=== PATIENT | male | born 1945 | race Caucasian/White ===

== ENCOUNTER → 2017-10-11 | Outpatient (CLI) | payer MEDICARE ==
--- NOTE | 2017-10-11 08:32 | MR ---
EXAMINATION TYPE: MR lumbar spine wo con DATE OF EXAM: 10/11/2017 COMPARISON: NONE HISTORY: Disc space Narrowing , low back suarez TECHNIQUE: Multiplanar, multisequence images of the lumbar spine were acquired. FINDINGS: Bone marrow signal is within normal limits other than a few T2/T1 hyperintense vertebral vidhi dy hemangiomas. There is mild (grade 1) anterolisthesis of L4 on L5. Multilevel disc desiccation is s een throughout the lumbar spine. Lumbar spine vertebral bodies maintain a normal vertebral body heigh t. Conus medullaris is unremarkable terminating at L1. L1-L2: There is a small broad-based disc bulge without evidence of neural foraminal narrowing or spin al canal stenosis. L2-L3: There is a broad-based disc bulge, right eccentric resulting in mild right neural foraminal na rrowing. Left neural foramen is patent. Mild ligament of flavum buckling and facet arthropathy are no harrison without spinal canal stenosis. L3-L4: There is a broad-based disc bulge and facet arthropathy creating minimal bilateral neural fora jn narrowing. No spinal canal stenosis. L4-L5: There is a large broad-based disc bulge and disc uncovering from grade 1 anterolisthesis of L4 on L5 resulting in mild bilateral neural foraminal narrowing. Mild ligamentum flavum buckling and fa cet arthropathy are also noted. No spinal canal stenosis. L5-S1: There is a large broad-based disc bulge resulting in mild bilateral neural foraminal narrowing in combination with mild facet arthropathy. No spinal canal stenosis. IMPRESSION: 1. No focal disc herniation. 2. [id number] multilevel degenerative disc disease resulting in variable neural foraminal narro wing as described above. 3. Grade 1 anterolisthesis of L4 on L5 with disc uncovering, likely on a degenerative basis. 4. No evidence of vertebral body fracture or compression deformity.
== END | disposition home or self-care (01) ==
LOC: RADMRIMAIN 06:52
PROVIDERS: ATTEND Internal Medicine
DX: M99.73 Connective tissue and disc stenosis of intervertebral foramina of lumbar region (principal); M51.36 Other intervertebral disc degeneration, lumbar region; M43.16 Spondylolisthesis, lumbar region
CPT/HCPCS: 72148

== ENCOUNTER → 2018-04-14 | Outpatient (CLI) | payer MEDICARE ==
--- NOTE | 2018-04-14 12:44 | PN ---
PROGRESS NOTE DATE OF SERVICE: 04/14/2018 A 72-year-old gentleman who has been followed in the Sleep Center for treatment of obstructive sleep apnea-hypopnea syndrome. Patient continued to use his CPAP equipment every night for the whole night. His usual sleep schedule from around 10 p.m. until 5:36 a.m. Sometimes he feels sleepy during the day. [place] Sleepiness Scale is 16. I checked his CPAP unit. Usage is 100% of the time more than 4 hours. Average usage is 8.0 hours. Apnea-hypopnea index reading is only 1.8, which is totally perfect. Mask fitting is 100% according to the machine reading. MEDICATIONS: Crystal, allopurinol, Prilosec, Enalapril. PHYSICAL EXAM: Patient in no distress. BP 144/69, HR 48, RR 16, height 6, 0, weight 222, BMI 30.1, temperature 98.0, oxygen saturation on room air 94%. OROPHARYNX: Low position of soft palate. Neck Supple, no JVD. Thyroid is not palpable. LUNGS Clear to percussion and to auscultation. Good air exchange. No wheezing or rhonchi. HEART S1, S2 regular. No murmurs, gallops, or rubs. ABDOMEN Soft and nontender. Bowel sounds are present. No organomegaly appreciated. EXTREMITIES No clubbing or cyanosis. SLIP MAKER Awake, alert, and oriented X3. Cranial nerves 2 to 7 intact. There is no fasciculation or atrophy. noted. No focal deficits observed. IMPRESSION: 1. Obstructive sleep apnea-hypopnea syndrome on control with CPAP. Patient demonstrated 100% compliance with treatment benefitting from treatment. 2. Patient continued to have leg movements at night, feels sleepy during the day. 3. Hypertension. 4. Acid reflux. 5. Gout. 6. Hyperlipidemia. 7. Status post bilateral knee surgery. 8. History of colon CA, status post surgical treatment. PLAN: 1. Continue treatment with CPAP every night for the whole night. 2. Watching weight. 3. Sleep hygiene with time in bed for at least 8 hours. 4. Previously patient was tried on dopaminergic agonists at night and feel not well in the morning after awakenings after this medication. I discussed this option again with the patient We will decide not to do it at the present time. 5. No driving if feeling sleepiness. 6. Prescription for all necessary CPAP supplies including mask, tube, filters. 7. Thank you very much for allowing me to participate in management of your patient. 8. 9. MMODL / IJN: [id number] /
== END | disposition home or self-care (01) ==
LOC: SLEEP 10:41
PROVIDERS: ATTEND Internal Medicine
DX: G47.33 Obstructive sleep apnea (adult) (pediatric) (principal); I10 Essential (primary) hypertension; K21.9 Gastro-esophageal reflux disease without esophagitis; M10.9 Gout, unspecified; E78.5 Hyperlipidemia, unspecified; Z98.890 Other specified postprocedural states; Z99.89 Dependence on other enabling machines and devices; Z79.899 Other long term (current) drug therapy; Z85.038 Personal history of other malignant neoplasm of large intestine

== ENCOUNTER → 2019-04-13 | Outpatient (CLI) | payer MEDICARE ==
--- NOTE | 2019-04-13 11:40 | SFUN ---
SLEEP CENTER FOLLOW UP NOTE DATE OF SERVICE: 04/13/2019 This 73-year-old gentleman has been followed in sleep center for treatment of obstructive sleep apnea-hypopnea syndrome. Patient continued to use his CPAP equipment successfully every night. According to his , recently he has had episodes of snoring while using his CPAP. The patient has slightly increased weight comparing with the previous visit at about 2 pounds. I checked his CPAP unit. Usage is every night more than 4 hours with average usage 8.7 hours per night. Mask fit 100%. Apnea-hypopnea index only 1.1. Periodic breathing reading is 2%. I checked pressure. Pressure is 9 cm of water. [place] Sleepiness Scale today is increased to 14. MEDICATIONS: Allopurinol, Prilosec, enalapril, . PHYSICAL EXAMINATION: During physical exam, patient in no distress. VITAL SIGNS: BP 144/77, HR 62, RR 16, height 6 feet 0 inches, weight 225 pounds, body mass index 30.5, temperature 98.3, oxygen saturation at room air 95%. HEENT: PERRLA, EOMI. The oropharynx low position of soft palate. Mallampati 4. NECK: Supple, no JVD. Thyroid is not palpable. LUNGS: Clear to percussion and to auscultation. Good air exchange. No wheezing or rhonchi. HEART: S1, S2 regular. No murmurs, gallops, or rubs. ABDOMEN: Slightly obese. EXTREMITIES: No clubbing or cyanosis. ON LINE CSR: Awake, alert, and oriented X3. Cranial nerves 2 to 7 intact. There is no fasciculation or atrophy. noted. No focal deficits observed. IMPRESSION: 1. Obstructive sleep apnea-hypopnea syndrome. The patient demonstrated 100% compliance with treatment benefitting with treatment, slight snoring while using CPAP. 2. Patient continued to have leg movements at night. 3. [place] Sleepiness Scale increased. 4. Hypertension. 5. Acid reflux. 6. History of gout. 7. Hyperlipidemia. 8. Status post bilateral knee surgery. 9. History of colon carcinoma, status post surgical treatment. PLAN: 1. I increased the pressure to 10 cm of water. 2. Patient will continue to use CPAP equipment every night for the whole night. 3. Prescription for all necessary CPAP supplies including nasal pillow AirFit P 10 mask. 4. Prescription for Mirapex lowest dose 0.125 mg 1 to 2 tablets p.o. q.h.s. 5. Watching and losing weight. Thank you very much for allowing me to participate in management of your patient. Sincerely, Cristi Oliveira MD, PhD, FAASM Diplomat of [place] [employer] [place] [employer] Public Records Researcher of [facility] [place] MMODL / ARUNN: [id number] /
== END | disposition home or self-care (01) ==
LOC: SLEEP 09:46
PROVIDERS: ATTEND Internal Medicine
DX: G47.33 Obstructive sleep apnea (adult) (pediatric) (principal); R25.9 Unspecified abnormal involuntary movements; I10 Essential (primary) hypertension; K21.9 Gastro-esophageal reflux disease without esophagitis; E78.5 Hyperlipidemia, unspecified; Z87.39 Personal history of other diseases of the musculoskeletal system and connective tissue; Z85.038 Personal history of other malignant neoplasm of large intestine; Z99.89 Dependence on other enabling machines and devices; Z98.890 Other specified postprocedural states; Z79.899 Other long term (current) drug therapy
CPT/HCPCS: 99211

== ENCOUNTER → 2020-04-11 | Outpatient (CLI) | payer MEDICARE ==
--- NOTE | 2020-04-11 11:35 | SFUN ---
SLEEP CENTER FOLLOW UP NOTE DATE OF SERVICE: 04/11/2020 A 74-year-old gentleman has been followed in the Sleep Center for treatment of obstructive sleep apnea-hypopnea syndrome. The patient successfully continues to use his CPAP equipment. He feels a little bit discomfort from one of the nasal pillow inside of the nose, has mild irritation. [place] Sleepiness Scale today is 7. I checked CPAP unit. Usage is 30/30 nights for more than 4 hours with average usage 8.9 hours per night, usage 100%. Apnea-hypopnea index only 2.2. Periodic breathing 3%, pressure is 9 cm of water. MEDICATIONS: Crestor, Difenac, finasteride, enalapril, Prilosec. PHYSICAL EXAM: gentleman without distress. BP 164/54, HR 55, RR 16, height 6, 0, weight 240, BMI 32.5, temperature 98.2, oxygen saturation at room air 94%. OROPHARYNX: Low position of soft palate, Mallampati 4. ABDOMEN: Slightly obese. NECK: Supple, no JVD. Thyroid is not palpable. LUNGS: Clear to percussion and to auscultation. Good air exchange. No wheezing or rhonchi. HEART: S1, S2 regular. No murmurs, gallops, or rubs. EXTREMITIES: No clubbing or cyanosis. ACCOUNTANT TAX: Awake, alert, and oriented X3. Cranial nerves 2 to 7 intact. There is no fasciculation or atrophy. noted. No focal deficits observed. IMPRESSION: 1. Obstructive sleep apnea-hypopnea syndrome. Patient demonstrated 100% compliance with treatment, benefitting from treatment. 2. History of periodic limb movements. 3. Hypertension. 4. Acid reflux. 5. History of gout. 6. Hyperlipidemia. 7. Status post bilateral knee surgery. 8. History of colon CA, status post surgical treatment. 9. Status post cholecystectomy. 10.Status post appendectomy. 11.Status post bilateral cataract surgery. 12.Status post treatment for basal cell CA on the back. PLAN: 1. Patient will continue to use PAP equipment every night for the whole night. 2. Sleep hygiene with regular time in bed for at least 7-1/2 to 8 hours. 3. Precautions related to driving. No driving if feeling sleepiness. 4. I will maintain all necessary prescription for PAP supplies including mask, tube, filters. 5. Watching weight. 6. No driving if feeling sleepiness. 7. Follow-up visit in 6 months or earlier if patient has any problems. Thank you very much for allowing me to participate in the management of your patient. Sincerely, Cristi Oliveira MD, PhD, FAASM Diplomat of [employer] Board of Internal Medicine Mosaic Tiler of [facility] [place] MMODL / VERNON: [id number] /
== END | disposition home or self-care (01) ==
LOC: SLEEP 09:59
PROVIDERS: ATTEND Internal Medicine
DX: G47.33 Obstructive sleep apnea (adult) (pediatric) (principal); I10 Essential (primary) hypertension; K21.9 Gastro-esophageal reflux disease without esophagitis; E78.5 Hyperlipidemia, unspecified; Z87.39 Personal history of other diseases of the musculoskeletal system and connective tissue; Z85.828 Personal history of other malignant neoplasm of skin; Z96.653 Presence of artificial knee joint, bilateral; Z85.038 Personal history of other malignant neoplasm of large intestine; Z90.89 Acquired absence of other organs; Z98.41 Cataract extraction status, right eye; Z98.42 Cataract extraction status, left eye; Z79.899 Other long term (current) drug therapy

== ENCOUNTER → 2021-04-10 | Outpatient (CLI) | payer MEDICARE ==
--- NOTE | 2021-04-10 20:04 | SFUN ---
SLEEP CENTER FOLLOW UP NOTE DATE OF SERVICE: 04/10/2021 75-year-old gentleman has been followed in Sleep Center for treatment of obstructive sleep apnea-hypopnea syndrome. Patient continued to use CPAP equipment every night for the whole night and getting his supplies in time. [place] Sleepiness Scale today is 4, which is totally normal. I checked CPAP unit. This is from [employer]. CPAP pressures 10. 2 cm of water, usage 29/30 nights for more than 4 hours, average 8.8 hours per night. Next feet 100%. Patient using AirFit P10 nasal pillows large size. Apnea-hypopnea index only 0.7, which is absolutely perfect. MEDICATIONS: Finasteride once a day, Diclofenac 75 mg twice a day, lisinopril hydrochlorothiazide 10- 12.5 mg once a day. Crestor 10 mg once a day. Omeprazole 20 mg once a day. PHYSICAL EXAMINATION: GENERAL: Patient in no distress. BP 170/76, HR 58, RR 15, height 6 inches, weight 248, body mass index 33.7, temperature 98.2. HEENT: PERRLA, EOMI. Oropharynx extremely low position of soft palate. Mallampati 4. NECK: Supple, no JVD. Thyroid is not palpable. LUNGS: Clear to percussion and to auscultation. Good air exchange. No wheezing or rhonchi. HEART: S1, S2 regular. No murmurs, gallops, or rubs. ABDOMEN: Obese. Soft and nontender. Bowel sounds are present. No organomegaly appreciated. EXTREMITIES: No clubbing or cyanosis. AUSTRALIAN RULES FOOTBALLER: Awake, alert, and oriented X3. Cranial nerves 2 to 7 intact. There is no fasciculation or atrophy. noted. No focal deficits observed. IMPRESSION: 1. Obstructive sleep apnea-hypopnea syndrome. Patient demonstrated 100% compliance with treatment, benefitting from treatment. The patient's unit is DreamWear station from [employer], which has been recalled and unit I believe more than 5- years-old. 2. History of periodic limb movements. No clinical problems related to movements at the present time. 3. Hypertension. 4. Acid reflux. 5. History of gout. 6. Hyperlipidemia. 7. Status post bilateral knee surgery. 8. History of colon carcinoma, status post surgical treatment. 9. Status post cholecystectomy. 10.Status post appendectomy. 11.Status post bilateral cataract surgery. 12.Status post treatment for basal cell carcinoma of the breast. PLAN: 1. Prescription to replace DreamWear [employer] CPAP unit because again it was very cold and I believe it is more than 5 years old. 2. Patient will continue to use PAP equipment every night for the whole night. 3. Sleep hygiene with regular time in bed for at least 7-1/2 to 8 hours. 4. Precautions related to driving. No driving if feeling sleepiness. 5. I will maintain all necessary prescription for PAP supplies including mask, tube, filters. 6. Watching weight. 7. Follow-up visit in 30-90 days after patient will receive new CPAP unit from [facility]. Thank you very much for allowing me to participate in management of this patient. Sincerely, Cristi Oliveira MD, PhD, FAASM Diplomat of [place] [employer] Specialties Sleep Medicine Board of [place] Board of Internal Medicine Embossing Toolsetter of [facility] [place] MMODL / IJN: [id number] /
== END ==
LOC: SLEEP 10:05
PROVIDERS: ATTEND Internal Medicine
DX: G47.33 Obstructive sleep apnea (adult) (pediatric) (principal); I10 Essential (primary) hypertension; K21.9 Gastro-esophageal reflux disease without esophagitis; E78.5 Hyperlipidemia, unspecified; Z87.39 Personal history of other diseases of the musculoskeletal system and connective tissue; Z85.038 Personal history of other malignant neoplasm of large intestine; Z90.49 Acquired absence of other specified parts of digestive tract; Z90.89 Acquired absence of other organs; Z98.42 Cataract extraction status, left eye; Z98.41 Cataract extraction status, right eye; Z85.3 Personal history of malignant neoplasm of breast; Z98.890 Other specified postprocedural states; Z86.69 Personal history of other diseases of the nervous system and sense organs; Z79.899 Other long term (current) drug therapy

== ENCOUNTER → 2022-03-25 | Outpatient (CLI) | payer MEDICARE ==
--- NOTE | 2022-03-25 15:28 | P.PN ---
Subjective DATE: 03/25/2022 FOLLOW UP VISIT. Patient with obstructive sleep apnea hypopnea syndrome return to sleep center for follow-up visit. Patient is using PAP equipment every night for the whole night, getting PAP supplies in time. The patient does not have significant problems with the mask, PAP unit and humidification. [place] sleepiness scale is 15. I checked PAP unit. Dream station 1. PAP unit pressure 10 cm H2O. Usage is 100 % for more then 4 hours, average 8.7 hours per night. Apnea Hypopnea Index is 0.5, which is normal. Patient still has multiple awakenings from sleep. I reviewed the results of previous sleep study it showed apnea-hypopnea index 54.5 and significant amount of periodic limb movement 68.1 times per hour. MEDICATIONS:1. Crestor 10 mg once a day 2. D diclofenac 75 mg twice a day 3. Enalapril 5 mg once a day 4. Finasteride 5. Lisinopril 6. : Buspar During physical exam: GENERAL: A pleasant patient without any distress. VITAL SIGNS: BP 151/74, HR 65, RR 18 , weight 47.6, temperature 97.2, height 6 foot 1/4 inches, body mass index 33.3, oxygen saturation at room air 96 . HEENT: PERRLA, EOMI.low position of soft palate, Mallapati for . NECK: Supple. No JVD. LUNGS: Clear to percussion and to auscultation. Good air exchange. No wheezing or rhonchi. HEART: S1, S2 regular. ABDOMEN: Soft and nontender. Slightly obese EXTREMITIES: No clubbing or cyanosis. COLORIST DYER: Awake, alert, and oriented x3. No focal deficit. Impressions: 1. Obstructive sleep apnea-hypopnea syndrome. Patient demonstrated great compliance with treatment, benefiting from treatment. 2. Patient still has multiple awakenings from sleep could be related to periodic limb movements. 3. Hypertension. 4. Acid reflux. 5. History of gout. 6. Hyperlipidemia. 7. History of colon CA status post surgical treatment. 8. Status post bilateral knee surgery. 9. Status post cholecystectomy. 10 status post appendectomy. 11. Status post bilateral cataract surgery. 12. Status post treatment of basal cell carcinoma over the breast area. Plan: 1. Continue using PAP equipment every night for the whole night. Patient has extremely severe obstructive sleep apnea hypopnea syndrome with apnea-hypopnea index 54.5. 2. To change air filter at least 1-2 times per month. 3. PAP unit should stay lower then position of the head. 4. Advised patient to remove all remaining water from humidifier canister daily and make it dry after each usage. Refill canister with fresh distilled water before each usage. 5. Sleep hygiene with regular time in bed for at least 8 hours. 6. Precautions related to driving. No driving if feel any sleepiness. 7. I will maintain prescription for PAP supplies including mask, tube, filters. 8. Follow up visit in 3 months or earlier if patient has any problems. 9. Watching weight. 10. Clonazepam with the minimal dose of 0.5 mg at bedtime. 11. Patient CPAP unit should be replaced as soon as possible. Thank you very much for allowing me to participate in the management of your patient. Cristi Oliveira MD, PhD, FAASM. Diplomat of [employer] Board [employer] Sleep Medicine, Sleep Medicine Board by [place] Board of Internal Medicine Administration Physician of [facility] [place]
== END ==
LOC: SLEEP 14:27
PROVIDERS: ATTEND Internal Medicine
DX: G47.33 Obstructive sleep apnea (adult) (pediatric) (principal); I10 Essential (primary) hypertension; K21.9 Gastro-esophageal reflux disease without esophagitis; E78.5 Hyperlipidemia, unspecified; Z87.39 Personal history of other diseases of the musculoskeletal system and connective tissue; Z98.890 Other specified postprocedural states; Z90.49 Acquired absence of other specified parts of digestive tract; Z98.42 Cataract extraction status, left eye; Z98.41 Cataract extraction status, right eye; Z85.038 Personal history of other malignant neoplasm of large intestine; Z85.828 Personal history of other malignant neoplasm of skin; Z99.89 Dependence on other enabling machines and devices; Z79.899 Other long term (current) drug therapy
CPT/HCPCS: 99212

== ENCOUNTER → 2022-07-01 | Outpatient (CLI) | payer MEDICARE ==
--- NOTE | 2022-07-02 13:09 | P.PN ---
Subjective DATE: 07/01/2022 FOLLOW UP VISIT. Patient with obstructive sleep apnea hypopnea syndrome return to sleep center for follow-up visit. Information from previous visit have been reviewed. Patient received new CPAP unit for respiratory neck for replacement of dream station 1 unit, which was on recall. Patient is using PAP equipment every night for the whole night, getting PAP supplies in time. The patient does not have significant problems with the mask. [place] sleepiness scale is 4, which is normal.. I checked information from PAP unit. Patient is using it every night for about 8.3 hours per night. Humidifier is 0 level. Sometimes patient feels dryness in the mouth. I teach patient how to adjust humidity. MEDICATIONS:1. Clonazepam 0.5 mg at bedtime 2., Finasteride 3., Lisinopril/hydrochlorothiazide 20/25 mg 4., Omeprazole 20 mg once a day 5., Amlodipine 10 mg once a day 6., Rosuvastatin 10 mg once a day 7., Diclofenac up to twice a day During physical exam: GENERAL: A pleasant patient without any distress. VITAL SIGNS: BP 150/78, HR, 62, RR, 16, weight 235, temperature 98.0, oxygen saturation at room air, 94 % . HEENT: PERRLA, EOMI.low position of soft palate, Mallapati 4 . NECK: Supple. No JVD. LUNGS: Clear to percussion and to auscultation. Good air exchange. No wheezing or rhonchi. HEART: S1, S2 regular. ABDOMEN: Soft and nontender.[] EXTREMITIES: No clubbing or cyanosis. INTEGRATED MARKETING INTERN: Awake, alert, and oriented x3. No focal deficit. Impressions: 1. Obstructive sleep apnea-hypopnea syndrome. Patient demonstrated great compliance with treatment, benefiting from treatment. 2. Hypertension. 3., Acid reflux. 4., Hyperlipidemia. 5., History of gout. 6., History of colon CA status post surgical treatment. 7., Status post bilateral knee surgery. 8.. Status post cholecystectomy. 9. Status post appendectomy. 10., Status post bilateral cataract surgery. 11.. Status post basal cell CA treatment and in the breast area. . Plan: 1. Continue using PAP equipment every night for the whole night. 2. To change air filter at least 1-2 times per month. 3. PAP unit should stay lower then position of the head. 4. Advised patient to remove all remaining water from humidifier canister daily and make it dry after each usage. Refill canister with fresh distilled water before each usage. 5. Sleep hygiene with regular time in bed for at least 8 hours. 6. Precautions related to driving. No driving if feel any sleepiness. 7. I will maintain prescription for PAP supplies including mask, tube, filters. 8. Follow up visit in 6 months or earlier if patient has any problems. 9. Watching weight. Thank you very much for allowing me to participate in the management of your patient. Cristi Oliveira MD, PhD, FAASM. Diplomat of [place] Board of Sleep Medicine, Sleep Medicine Board by [place] Board of Internal Medicine Electrical Power Engineer of [facility] [place]
== END ==
LOC: SLEEP 14:50
PROVIDERS: ATTEND Internal Medicine
DX: G47.33 Obstructive sleep apnea (adult) (pediatric) (principal); I10 Essential (primary) hypertension; K21.9 Gastro-esophageal reflux disease without esophagitis; E78.5 Hyperlipidemia, unspecified; M10.9 Gout, unspecified; Z90.49 Acquired absence of other specified parts of digestive tract; Z99.89 Dependence on other enabling machines and devices; Z85.038 Personal history of other malignant neoplasm of large intestine; Z96.653 Presence of artificial knee joint, bilateral; Z85.828 Personal history of other malignant neoplasm of skin; Z98.42 Cataract extraction status, left eye; Z98.41 Cataract extraction status, right eye
CPT/HCPCS: 99212

== ENCOUNTER → 2023-07-22 | Outpatient (CLI) | payer MEDICARE ==
--- NOTE | 2023-07-22 12:47 | P.PN ---
Subjective DATE: 07/22/2023 FOLLOW UP VISIT. Patient with obstructive sleep apnea hypopnea syndrome return to sleep center for follow-up visit. Information from previous visit have been reviewed. Patient is using PAP equipment every night for the whole night, getting PAP supplies in time. The patient does not have significant problems with the mask, PAP unit and humidification. [place] sleepiness scale is 7, which is normal. I checked information from PAP unit and discussed it with patient. PAP unit pressure 10 cm H2O. Usage is 100 % for more then 4 hours, average 8.1 hours per night. Mask feet 100%. Apnea hypopnea index 2.7, which is normal. MEDICATIONS:1. clonazepam 0.5 mg at bedtime 2. lisinopril /hydrochlorothiazide 20 -25 mg once a day 3. Omeprazole 20 mg once a day 4. Amlodipine 10 mg once a day 5. Rosuvastatin 10 mg once a day During physical exam: GENERAL: A pleasant patient without any distress. VITAL SIGNS: BP 122/73, HR 72, RR 16 , weight 218, temperature 97.8, oxygen saturation at room air 96 % . HEENT: PERRLA, EOMI.low position of soft palate, Mallapati 4 . NECK: Supple. No JVD. LUNGS: Clear to percussion and to auscultation. Good air exchange. No wheezing or rhonchi. HEART: S1, S2 regular. ABDOMEN: Soft and nontender.[] EXTREMITIES: No clubbing or cyanosis. CLINIC BUSINESS MANAGER: Awake, alert, and oriented x3. No focal deficit. Impressions: 1. Obstructive sleep apnea-hypopnea syndrome. Patient demonstrated great compliance with treatment, benefiting from treatment. 2. hypertension. 3. acid reflux. 4. hyperlipidemia. 5. history of gout. 6. history of colon cancer, status post surgical treatment. 7. Status post bilateral knee surgery. 8. Status post cholecystectomy. 9. Status post appendectomy. 10. Status post bilateral cataract surgery. 11. Status post surgical treatment for basal cell carcinoma in the breast area. Plan: 1. Continue using PAP equipment every night for the whole night. 2. To change air filter at least 1-2 times per month. 3. PAP unit should stay lower then position of the head. 4. Advised patient to remove all remaining water from humidifier canister daily and make it dry after each usage. Refill canister with fresh distilled water before each usage. 5. Sleep hygiene with regular time in bed for at least 8 hours. 6. Precautions related to driving. No driving if feel any sleepiness. 7. I will maintain prescription for PAP supplies including mask, tube, filters. 8. Watching weight. 9. Follow up visit in 6 months or earlier if patient has any problems. Thank you very much for allowing me to participate in the management of your patient. Cristi Oliveira MD, PhD, FAASM. Diplomat of [place] Board of Sleep Medicine, Sleep Medicine Board by [place] [employer] Medicine Pearl Glue Operator of [facility] [place]
== END ==
LOC: 3 N SLEEP 11:29
PROVIDERS: ATTEND Internal Medicine
DX: G47.33 Obstructive sleep apnea (adult) (pediatric) (principal); I10 Essential (primary) hypertension; K21.9 Gastro-esophageal reflux disease without esophagitis; E78.5 Hyperlipidemia, unspecified; M10.9 Gout, unspecified; Z96.653 Presence of artificial knee joint, bilateral; Z85.038 Personal history of other malignant neoplasm of large intestine; Z90.49 Acquired absence of other specified parts of digestive tract; Z85.3 Personal history of malignant neoplasm of breast; Z98.41 Cataract extraction status, right eye; Z98.42 Cataract extraction status, left eye; Z98.890 Other specified postprocedural states; Z99.89 Dependence on other enabling machines and devices; Z85.828 Personal history of other malignant neoplasm of skin; Z79.899 Other long term (current) drug therapy
CPT/HCPCS: 99212

== ENCOUNTER → 2023-09-02 | Outpatient (CLI) | payer MEDICARE ==
--- NOTE | 2023-09-02 13:29 | XR ---
EXAMINATION TYPE: XR shoulder complete RT DATE OF EXAM: 09/02/2023 CLINICAL HISTORY: pain COMPARISON: NONE TECHNIQUE: Frontal and lateral images of the right humerus are obtained. FINDINGS: There is no acute fracture/dislocation evident. Expansile lytic lesion proximal right teto ral diaphysis felt to reflect metastatic disease The joint spaces appear within normal limits. The o verlying soft tissue appears unremarkable. Possible additional lesion right rib #6 pathologic fractur e. IMPRESSION: Lytic lesion proximal right humeral diaphysis which may reflect primary malignancy versus metastatic lesion.Possible additional lesion right rib #6 pathologic fracture.
--- NOTE | 2023-09-02 13:33 | XR ---
EXAMINATION TYPE: XR lumbosacral spine min 4V DATE OF EXAM: 09/02/2023 CLINICAL HISTORY: pain COMPARISON: NONE TECHNIQUE: Frontal, lateral, and oblique images of the lumbar spine are obtained. FINDINGS: There are 5 lumbar type vertebral bodies identified. The lumbar spine shows satisfactory alignment without evidence of acute fracture or dislocation. Vertebral body heights are within normal limits. Severe multilevel degenerative disc space narrowing with vacuum disc and endplate sclerosis. Facet joint arthropathy. The overlying soft tissue appears unremarkable. IMPRESSION: No acute fracture or dislocation is seen in the lumbar spine.ICD 10 NO FRACTURE, INITIAL EVALUATION
== END | disposition home or self-care (01) ==
LOC: RADXRYALE 12:49
PROVIDERS: ATTEND Internal Medicine
DX: M89.9 Disorder of bone, unspecified (principal); M54.51 Vertebrogenic low back pain; M25.511 Pain in right shoulder
CPT/HCPCS: 72110

== ENCOUNTER → 2023-10-29 | Outpatient (CLI) | payer MEDICARE ==
--- NOTE | 2023-10-31 09:41 | PE ---
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 Images are reviewed on the computer in the coronal, a xial, and sagittal planes. Reconstructed rotating images are created on independent workstation and reviewed on the computer. A non-contrast CT is performed in conjunction with the PET scan. Glucose level 108 mg/dL CT DLP: 750 mGycm, Automated exposure control for dose reduction was used. COMPARISON: CT None, PET/CT None, plain film radiograph 09/02/2023. FINDINGS: Mediastinal SUV mean is 1.8. Hepatic parenchyma SUV mean is 2.4. SKULL BASE AND NECK: No suspicious radiotracer activity. CHEST, MEDIASTINUM, AND HILAR REGION: No suspicious radiotracer activity. ABDOMEN AND PELVIS: No suspicious radiotracer activity. MUSCULOSKELETAL STRUCTURES: * Heterogenous uptake around the right humerus max SUV 7.7 along the area of prior lytic lesions in plain film. There is underlying pathologic fracture changes also present. * Uptake within the right rib 6. Max SUV 8.8 with an area more laterally max SUV 5.3. These have sof t tissue component with erosion of the cortex. * Heterogenous uptake throughout the remainder of the osseous structures without focal uptake. OTHER CT: Bilaterally aphakia. Right shoulder arthroplasty changes. Atherosclerosis of the arterial vasculature. The heart is mildly enlarged for size. Mild emphysema changes. The gallbladder surgicall y absent. Right renal cyst. Scattered colonic diverticula. Surgical clips in the posterior pelvis. IMPRESSION: 1. Uptake along the right humerus fixation hardware which is heterogenous appearance with healing ch anges and underlying pathologic fracture. 2. Uptake within the right rib and at least 2 spots with soft tissue compatible with malignancy. 3. No additional sites of abnormal bone marrow uptake or evidence for lymphadenopathy or other mass.
== END | disposition home or self-care (01) ==
LOC: RADPETMAIN 07:38
PROVIDERS: ATTEND Internal Medicine Hematology & Oncology
DX: C41.9 Malignant neoplasm of bone and articular cartilage, unspecified (principal); Z96.7 Presence of other bone and tendon implants
CPT/HCPCS: 78815; A9552

== ENCOUNTER → 2024-03-09 | Outpatient (CLI) | payer MEDICARE ==
[2024-03-09 13:14] VITALS: BP 163/73; PULSE 50; RESP 20; TEMP 97.9
--- NOTE | 2024-03-09 13:33 | P.PROGSL ---
Subjective DATE: 03/09/2024 FOLLOW UP VISIT. Patient with obstructive sleep apnea hypopnea syndrome return to sleep center for follow-up visit. Information from previous visit have been reviewed. Patient is using PAP equipment every night for the whole night, getting PAP supplies in time. Patient is close on clonazepam 0.5 mg at bedtime to prevent anxiety and to improve quality of sleep. The patient does not have significant problems with the mask, PAP unit and humidification. Essie sleepiness scale is 3, which is normal. I checked information from PAP unit. PAP unit pressure 10 cm H2O. Usage is 100% for more then 4 hours, average 9 hours per night. Mask fit 100%. Apnea Hypopnea Index is 4.8, which is normal. MEDICATIONS: Please see below During physical exam: GENERAL: A pleasant patient without any distress. VITAL SIGNS: Please see below. HEENT: PERRLA, EOMI.low position of soft palate, Mallapati 4 . NECK: Supple. No JVD. LUNGS: Clear to percussion and to auscultation. Good air exchange. No wheezing or rhonchi. HEART: S1, S2 regular. ABDOMEN: Soft and nontender.[] EXTREMITIES: No clubbing or cyanosis. DATA CENTER OPERATOR: Awake, alert, and oriented x3. No focal deficit. Impressions: 1. Obstructive sleep apnea-hypopnea syndrome. Patient demonstrated great compliance with treatment, benefiting from treatment. 2. Melanoma, on chemotherapy treatment. 3. Hypertension. 4. History of colon cancer, status post surgical treatment. 5. Acid reflux. 6. History of gout. 7. Hyperlipidemia. 8. Status post bilateral knee surgery. 9. Status post surgical treatment for basal cell carcinoma in the breast area. Plan: 1. Continue using PAP equipment every night for the whole night. 2. To change air filter at least 1-2 times per month. 3. PAP unit should stay lower then position of the head. 4. Advised patient to remove all remaining water from humidifier canister daily and make it dry after each usage. Refill canister with fresh distilled water before each usage. 5. Sleep hygiene with regular time in bed for at least 8 hours. 6. Precautions related to driving. No driving if feel any sleepiness. 7. I will maintain prescription for PAP supplies including mask, tube, filters. 8. Follow up visit in 6 months or earlier if patient has any problems. 9. Watching weight. 10. Clonazepam 0.5 mg at bedtime as needed. Thank you very much for allowing me to participate in the management of your patient. Cristi Oliveira MD, PhD, FAASM. Diplomat of [place] [employer], Sleep Medicine Board by [place] [employer] Business Quality Assurance Analyst of [facility] [place] Objective - Vital Signs Vital Signs: Vital Signs Temp 97.9 F 03/09/24 13:13 Pulse 50 L 03/09/24 13:13 Resp 20 03/09/24 13:13 BP 163/73 03/09/24 13:13 Pulse Ox 95 03/09/24 13:13 FiO2 Intake & Output 03/08/24 03/09/24 03/09/24 18:59 06:59 18:59 Weight 91.172 kg Home Medications: Home Medications Medication Instructions Recorded Confirmed Type Cyanocobalamin [Vitamin B-12] 500 mcg PO DAILY 11/06/23 11/06/23 History Finasteride [Proscar] 5 mg PO DAILY 11/06/23 11/06/23 History Multivitamins, Thera [Multivitamin 1 tab PO DAILY 11/06/23 03/09/24 History (formulary)] Omeprazole 20 mg PO DAILY 11/06/23 03/09/24 History Rosuvastatin [Crestor] 10 mg PO DAILY 11/06/23 11/06/23 History Vitamin B Complex 1 cap PO DAILY 11/06/23 11/06/23 History Acetaminophen Tab [Tylenol] 650 mg PO Q6HR PRN tab 11/13/23 03/09/24 Rx Heparin Sodium,Porcine (1 ml) 5,000 unit SQ Q12HR each 11/13/23 Rx [Heparin Sodium] QUEtiapine [SEROquel] 12.5 mg PO HS PRN tab 11/13/23 Rx amLODIPine [Norvasc] 5 mg PO DAILY tab 11/13/23 Rx Acetaminophen/Diphenhydramine 1 tab PO HS 03/09/24 03/09/24 History [Tylenol PM 500-25mg] Acyclovir [Zovirax] 400 mg PO 03/09/24 History Aspirin 81 mg PO DAILY 03/09/24 03/09/24 History Docusate Sodium 250 mg PO 03/09/24 History Lenalidomide [Revlimid] 15 mg PO 03/09/24 History Metoprolol Succinate (ER) [Toprol 12.5 mg PO DAILY 03/09/24 03/09/24 History Xl] Ondansetron [Zofran] 03/09/24 History clonazePAM [KlonoPIN] 0.5 mg PO HS 03/09/24 03/09/24 History dexAMETHasone [Decadron] 4 mg PO 03/09/24 History
== END ==
LOC: 3 N SLEEP 12:58
PROVIDERS: ATTEND Internal Medicine
DX: G47.33 Obstructive sleep apnea (adult) (pediatric) (principal); I10 Essential (primary) hypertension; C43.9 Malignant melanoma of skin, unspecified; K21.9 Gastro-esophageal reflux disease without esophagitis; E78.5 Hyperlipidemia, unspecified; Z85.038 Personal history of other malignant neoplasm of large intestine; Z96.653 Presence of artificial knee joint, bilateral; Z85.3 Personal history of malignant neoplasm of breast; Z87.39 Personal history of other diseases of the musculoskeletal system and connective tissue; Z99.89 Dependence on other enabling machines and devices; Z79.899 Other long term (current) drug therapy
CPT/HCPCS: 99212

== ENCOUNTER → 2024-08-21 | Outpatient (CLI) | payer MEDICARE ==
--- NOTE | 2024-08-22 08:36 | XR ---
EXAMINATION TYPE: XR shoulder complete 3 views LT DATE OF EXAM: 08/21/2024 3:45 PM COMPARISON: None CLINICAL INDICATION: Male, 78 years old with pain after history of [id number] LT SHLD INJURY, , FINDINGS: Exam is overpenetrated limiting assessment. Some mild degenerative joint space narrowing at the AC toin int. No acute fracture, subluxation, dislocation is seen. IMPRESSION: Limited, overpenetrated exam. Suggestion of mild degenerative change at the AC joint. No definite acu te osseous abnormality seen. [facility], , 08/22/2024 8:34 AM
== END | disposition home or self-care (01) ==
LOC: RADXRYALE 14:55
PROVIDERS: ATTEND Internal Medicine
DX: S49.92XA Unspecified injury of left shoulder and upper arm, initial encounter (principal)

== ENCOUNTER 2024-12-05 15:43 | Inpatient (IN) | payer MEDICARE ==
--- NOTE | 2024-12-05 15:55 | ED ---
Recheck HPI - General Chief Complaint: Recheck/Abnormal Lab/Rx Stated Complaint: Abn labs Time Seen by Provider: 12/05/24 15:54 Source: patient, RN notes reviewed, old records reviewed Mode of arrival: wheelchair Limitations: no limitations - History of Present Illness Initial Comments: This is a 79-year-old male to the ER for evaluation patient presents to us today for evaluation of elevated calcium levels on an outpatient basis history of multiple myeloma with bony lesions. Patient coming in for cough congestion as well admits to some shortness of breath and coughing up mucus with blood on it starting today MD Complaint: abnormal lab (Elevated calcium) Returns Today for: Called Because of Abnormal Lab/Test, needs IV antibiotics Symptoms Since Prior Visit: no new symptoms Context: called for abnormal lab result Associated Symptoms: fever Treatments Prior to Arrival: other (0) - Related Data Home Medications Medication Instructions Recorded Confirmed Omeprazole 20 mg PO DAILY 11/06/23 12/05/24 Aspirin 81 mg PO DAILY 03/09/24 12/05/24 Docusate Sodium 250 mg PO DAILY 03/09/24 12/05/24 Metoprolol Succinate (ER) [Toprol 25 mg PO DAILY 03/09/24 12/05/24 Xl] clonazePAM [KlonoPIN] 0.5 mg PO HS 03/09/24 12/05/24 Acetaminophen Tab [Tylenol Tab] 1,000 mg PO Q6H PRN 12/05/24 12/05/24 Atorvastatin [Lipitor] 20 mg PO HS 12/05/24 12/05/24 Calcium Citrate/Vitamin D3 1 tab PO DAILY 12/05/24 12/05/24 [Calcium Cit 315-Vit D3 6.25 Mcg (250 Iu)] Diphenoxylate HCl/Atropine 1 tab PO QID PRN 12/05/24 12/05/24 [Lomotil 2.5-0.025 mg Tablet] Loperamide [Imodium] 2 - 4 mg PO QID PRN 12/05/24 12/05/24 Multivit-Min/FA/Lycopen/Lutein 1 tab PO DAILY 12/05/24 12/05/24 [Centrum Silver Tablet] Naproxen Sodium [Aleve] 220 mg PO BID PRN 12/05/24 12/05/24 Previous Rx's Medication Instructions Recorded amLODIPine [Norvasc] 5 mg PO DAILY tab 11/13/23 Allergies Allergy/AdvReac Type Severity Reaction Status Date / Time No Known Allergies Allergy Verified 12/05/24 18:09 Review of Systems ROS Statement: Those systems with pertinent positive or pertinent negative responses have been documented in the HPI. ROS Other: All systems not noted in ROS Statement are negative. Past Medical History Past Medical History: Cancer, Hyperlipidemia, Hypertension Additional Past Medical History / Comment(s): multiple myeloma History of Any Multi-Drug Resistant Organisms: None Reported Past Surgical History: No Surgical Hx Reported Past Anesthesia/Blood Transfusion Reactions: No Reported Reaction Past Psychological History: No Psychological Hx Reported Smoking Status: Never smoker Past Alcohol Use History: None Reported Past Drug Use History: None Reported General Exam Limitations: no limitations General appearance: alert, in no apparent distress Head exam: Present: atraumatic, normocephalic, normal inspection Eye exam: Present: normal appearance, PERRL, EOMI. Absent: scleral icterus, conjunctival injection, periorbital swelling ENT exam: Present: normal exam, mucous membranes moist Neck exam: Present: normal inspection. Absent: tenderness, meningismus, lymphadenopathy Respiratory exam: Present: respiratory distress, accessory muscle use, decreased breath sounds, prolonged expiratory. Absent: wheezes, rales, rhonchi, stridor Cardiovascular Exam: Present: regular rate, normal rhythm, normal heart sounds. Absent: systolic murmur, diastolic murmur, rubs, gallop, clicks GI/Abdominal exam: Present: soft, normal bowel sounds. Absent: distended, tenderness, guarding, rebound, rigid Extremities exam: Present: normal inspection, full ROM, normal capillary refill. Absent: tenderness, pedal edema, joint swelling, calf tenderness Back exam: Present: normal inspection Neurological exam: Present: alert, oriented X3, CN II-XII intact Psychiatric exam: Present: normal affect, normal mood Skin exam: Present: warm, dry, intact, normal color. Absent: rash Course Vital Signs 12/05/24 12/05/24 12/05/24 15:47 16:22 18:23 Temperature 97.4 F L Pulse Rate 92 98 101 H Respiratory 18 20 20 Rate Blood Pressure 146/65 143/70 O2 Sat by Pulse 94 L 94 L 94 L Oximetry 12/05/24 20:24 Temperature Pulse Rate 96 Respiratory 22 Rate Blood Pressure 144/67 O2 Sat by Pulse 95 Oximetry - Reevaluation(s) Reevaluation #1: 12/05/24 18:48 Medical records reviewed Reevaluation #2: 12/05/24 18:48 Patient is coughing up bloody mucus here in the ER Reevaluation #3: 12/05/24 18:48 Patient informed of results and questions answered Reevaluation #4: Was pt. sent in by a medical professional or institution (, [facility], [facility], urgent care, hospital, or alf...) When possible be specific @ -no Did you speak to anyone other than the patient for history (EMS, parent, family, police, friend...)? What history was obtained from this source @ -no Did you review nursing and triage notes (agree or disagree)? Why? @ -agree Are old charts reviewed (outside hosp., previous admission, EMS record, old EKG, old radiological studies, urgent care reports/EKG's, alf records)? Report findings @ -yes Differential Diagnosis (chest pain, altered mental status, abdominal pain women, abdominal pain men, vaginal bleeding, weakness, fever, dyspnea, syncope, headache, dizziness, GI bleed, back pain, seizure, CVA, palpatations, mental health, musculoskeletal)? @ -prior EKG interpreted by me (3pts min.). @ -yes X-rays interpreted by me (1pt min.). @ -yes significant for pneumonia cavitary lesion CT interpreted by me (1pt min.). @ -Yes likely metastatic disease U/S interpreted by me (1pt. min.). @ -no What testing was considered but not performed or refused? (CT, X-rays, U/S, labs)? Why? @ -none What meds were considered but not given or refused? Why? @ -none Did you discuss the management of the patient with other professionals (professionals i.e. , [facility]IG[facility], [facility]MITE TREATER, lab, RT, psych nurse, neonatal social worker, speech/language therapist, teacher, chief creative officer, geriatric case manager)? Give summary @ -no Was smoking cessation discussed for >3mins.? @ -no Was critical care preformed (if so, how long)? @ -yes31 Were there social determinants of health that impacted care today? How? (Homelessness, low income, unemployed, alcoholism, drug addiction, transportation, low edu. Level, literacy, decrease access to med. care, [facility], rehab)? @ -none Was there de-escalation of care discussed even if they declined (Discuss DNR or withdrawal of care, Hospice)? DNR status @ -no What co-morbidities impacted this encounter? (DM, HTN, Smoking, COPD, CAD, Cancer, CVA, ARF, Chemo, Hep., AIDS, mental health diagnosis, sleep apnea, morbid obesity)? @ -none Was patient admitted / discharged? Hospital course, mention meds given and route, prescriptions, significant lab abnormalities, going to OR and other pertinent info. @ - 79 male to the ER for evaluation patient will be admitted for significant amount process with pneumonia placed on IV antibiotics also noted elevated calcium levels placed on IV hydration patient will be admitted Admitted Undiagnosed new problem with uncertain prognosis? @ -no Drug Therapy requiring intensive monitoring for toxicity (Heparin, Nitro, Insulin, Cardizem)? @ -no Were any procedures done? @ -no Diagnosis/symptom? @ -significant pneumonia metastatic disease Acute, or Chronic, or Acute on Chronic? @ -Acute Uncomplicated (without systemic symptoms) or Complicated (systemic symptoms)? @ -Complicated Side effects of treatment? @ -no Exacerbation, Progression, or Severe Exacerbation? @ -exacerbation Poses a threat to life or bodily function? How? (Chest pain, USA, IA, pneumonia, PE, COPD, DKA, ARF, appy, cholecystitis, CVA, Diverticulitis, Homicidal, Suicidal, threat to staff... and all critical care pts) @ -yes extremes of age Reevaluation #5: Differential Dyspnea: Coronary syndrome, arrhythmia, tamponade, asthma, COPD, pulmonary embolism, pneumonia, pneumothorax, pulmonary effusion, anaphylaxis, diabetic ketoacidosis, flailed chest, pulmonary contusion, diaphragmatic rupture, anemia, neuromuscular, this is not meant to be an all-inclusive list. - Consultations Consultation #1: Spoke with [facility] who agrees to admit this patient Medical Decision Making - Medical Decision Making 79 male to the ER for evaluation patient will be admitted for significant amount process with pneumonia placed on IV antibiotics also noted elevated calcium levels placed on IV hydration patient will be admitted - Lab Data Result diagrams: 12/11/24 04:52 12/12/24 07:12 Lab Results 12/05/24 12/05/24 12/05/24 Range/Units 16:30 16:30 16:30 WBC 3.8 (3.8-10.6) k/uL RBC 2.70 L (4.30-5.90) m/uL Hgb 9.0 L (13.0-17.5) gm/dL Hct 26.9 L (39.0-53.0) % MCV 99.7 (80.0-100.0) fL MCH 33.4 (25.0-35.0) pg MCHC 33.5 (31.0-37.0) g/dL RDW 15.2 (11.5-15.5) % Plt Count 134 L (150-450) k/uL MPV 9.3 Neutrophils % Not Reportable Neutrophils % (Manual) 58 % Lymphocytes % Not Reportable Lymphocytes % (Manual) 23 % Monocytes % Not Reportable Monocytes % (Manual) 14 % Eosinophils % Not Reportable Eosinophils % (Manual) 5 % Basophils % Not Reportable Neutrophils # Not Reportable Neutrophils # (Manual) 2.20 (1.3-7.7) k/uL Lymphocytes # Not Reportable Lymphocytes # (Manual) 0.87 L (1.0-4.8) k/uL Monocytes # Not Reportable Monocytes # (Manual) 0.53 (0-1.0) k/uL Eosinophils # Not Reportable Eosinophils # (Manual) 0.19 (0-0.7) k/uL Basophils # Not Reportable Nucleated RBCs 0 (0-0) /100 WBC Manual Slide Review Performed Large Platelets Present Polychromasia Present Macrocytosis Slight PT 11.0 (10.0-12.5) sec INR 1.0 (<1.2) APTT 19.8 L (22.0-30.0) sec Sodium 142 (137-145) mmol/L Potassium 4.0 (3.5-5.1) mmol/L Chloride 107 (98-107) mmol/L Carbon Dioxide 21 L (22-30) mmol/L Anion Gap 14 mmol/L BUN 40 H (9-20) mg/dL Creatinine 1.40 H (0.66-1.25) mg/dL Est GFR (CKD-EPI)AfAm 55 (>60 ml/min/1.73 sqM) Est GFR (CKD-EPI)NonAf 48 (>60 ml/min/1.73 sqM) Glucose 103 H (74-99) mg/dL Plasma Lactic Acid Carmine (0.7-2.0) mmol/L Calcium 10.5 H (8.4-10.2) mg/dL Ionized Calcium Maggie 5.4 H (4.5-5.3) mg/dL Phosphorus 3.7 (2.5-4.5) mg/dL Magnesium 1.4 L (1.6-2.3) mg/dL Total Bilirubin 0.7 (0.2-1.3) mg/dL AST 27 (17-59) U/L ALT 11 (4-49) U/L Alkaline Phosphatase 61 (38-126) U/L Troponin I (0.000-0.034) ng/mL NT-Pro-B Natriuret Pep pg/mL Total Protein 6.3 (6.3-8.2) g/dL Albumin 4.0 (3.5-5.0) g/dL Influenza Type A (PCR) (Not Detectd) Influenza Type B (PCR) (Not Detectd) RSV (PCR) (Not Detectd) SARS-CoV-2 (PCR) (Not Detectd) 12/05/24 12/05/24 12/05/24 Range/Units 16:30 16:30 16:30 WBC (3.8-10.6) k/uL RBC (4.30-5.90) m/uL Hgb (13.0-17.5) gm/dL Hct (39.0-53.0) % MCV (80.0-100.0) fL MCH (25.0-35.0) pg MCHC (31.0-37.0) g/dL RDW (11.5-15.5) % Plt Count (150-450) k/uL MPV Neutrophils % Neutrophils % (Manual) % Lymphocytes % Lymphocytes % (Manual) % Monocytes % Monocytes % (Manual) % Eosinophils % Eosinophils % (Manual) % Basophils % Neutrophils # Neutrophils # (Manual) (1.3-7.7) k/uL Lymphocytes # Lymphocytes # (Manual) (1.0-4.8) k/uL Monocytes # Monocytes # (Manual) (0-1.0) k/uL Eosinophils # Eosinophils # (Manual) (0-0.7) k/uL Basophils # Nucleated RBCs (0-0) /100 WBC Manual Slide Review Large Platelets Polychromasia Macrocytosis PT (10.0-12.5) sec INR (<1.2) APTT (22.0-30.0) sec Sodium (137-145) mmol/L Potassium (3.5-5.1) mmol/L Chloride (98-107) mmol/L Carbon Dioxide (22-30) mmol/L Anion Gap mmol/L BUN (9-20) mg/dL Creatinine (0.66-1.25) mg/dL Est GFR (CKD-EPI)AfAm (>60 ml/min/1.73 sqM) Est GFR (CKD-EPI)NonAf (>60 ml/min/1.73 sqM) Glucose (74-99) mg/dL Plasma Lactic Acid Carmine 1.2 (0.7-2.0) mmol/L Calcium (8.4-10.2) mg/dL Ionized Calcium Maggie (4.5-5.3) mg/dL Phosphorus (2.5-4.5) mg/dL Magnesium (1.6-2.3) mg/dL Total Bilirubin (0.2-1.3) mg/dL AST (17-59) U/L ALT (4-49) U/L Alkaline Phosphatase (38-126) U/L Troponin I 0.018 (0.000-0.034) ng/mL NT-Pro-B Natriuret Pep 1550 pg/mL Total Protein (6.3-8.2) g/dL Albumin (3.5-5.0) g/dL Influenza Type A (PCR) (Not Detectd) Influenza Type B (PCR) (Not Detectd) RSV (PCR) (Not Detectd) SARS-CoV-2 (PCR) (Not Detectd) 12/05/24 Range/Units 17:20 WBC (3.8-10.6) k/uL RBC (4.30-5.90) m/uL Hgb (13.0-17.5) gm/dL Hct (39.0-53.0) % MCV (80.0-100.0) fL MCH (25.0-35.0) pg MCHC (31.0-37.0) g/dL RDW (11.5-15.5) % Plt Count (150-450) k/uL MPV Neutrophils % Neutrophils % (Manual) % Lymphocytes % Lymphocytes % (Manual) % Monocytes % Monocytes % (Manual) % Eosinophils % Eosinophils % (Manual) % Basophils % Neutrophils # Neutrophils # (Manual) (1.3-7.7) k/uL Lymphocytes # Lymphocytes # (Manual) (1.0-4.8) k/uL Monocytes # Monocytes # (Manual) (0-1.0) k/uL Eosinophils # Eosinophils # (Manual) (0-0.7) k/uL Basophils # Nucleated RBCs (0-0) /100 WBC Manual Slide Review Large Platelets Polychromasia Macrocytosis PT (10.0-12.5) sec INR (<1.2) APTT (22.0-30.0) sec Sodium (137-145) mmol/L Potassium (3.5-5.1) mmol/L Chloride (98-107) mmol/L Carbon Dioxide (22-30) mmol/L Anion Gap mmol/L BUN (9-20) mg/dL Creatinine (0.66-1.25) mg/dL Est GFR (CKD-EPI)AfAm (>60 ml/min/1.73 sqM) Est GFR (CKD-EPI)NonAf (>60 ml/min/1.73 sqM) Glucose (74-99) mg/dL Plasma Lactic Acid Carmine (0.7-2.0) mmol/L Calcium (8.4-10.2) mg/dL Ionized Calcium Maggie (4.5-5.3) mg/dL Phosphorus (2.5-4.5) mg/dL Magnesium (1.6-2.3) mg/dL Total Bilirubin (0.2-1.3) mg/dL AST (17-59) U/L ALT (4-49) U/L Alkaline Phosphatase (38-126) U/L Troponin I (0.000-0.034) ng/mL NT-Pro-B Natriuret Pep pg/mL Total Protein (6.3-8.2) g/dL Albumin (3.5-5.0) g/dL Influenza Type A (PCR) Not Detected (Not Detectd) Influenza Type B (PCR) Not Detected (Not Detectd) RSV (PCR) Not Detected (Not Detectd) SARS-CoV-2 (PCR) Not Detected (Not Detectd) - EKG Data -: EKG Interpreted by Me (EKG is sinus tachycardia 110 SC 191 QRS 75 QTc 430) - Radiology Data Radiology results: report reviewed (Chest x-ray positive for right-sided cavitary infection and pneumonia CTA chest metastatic disease no PE), image reviewed Critical Care Time Critical Care Time: Yes Total Critical Care Time: 31 Disposition Clinical Impression: Hypercalcemia, Weakness, Pneumonia, Hemoptysis, 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
[2024-12-05] MEDS: SODIUM CHLORIDE 0.9% 1,000 ML IV ONE (16:31)
[2024-12-05] MEDS: LACTATED RINGERS 1,000 ML IV ONE (16:32)
[2024-12-05 16:38] LABS: HCT 26.9 % (39.0-53.0); MCH 33.4 pg (25.0-35.0); MCHC 33.5 g/dL (31.0-37.0); MCV 99.7 fL (80.0-100.0); Macrocytosis Slight; Mean Platelet Volume 9.3; Platelet Count 134 k/uL (150-450); RDW 15.2 % (11.5-15.5); WBC 3.8 k/uL (3.8-10.6)
[2024-12-05 16:44] LABS: Ionized Calcium 5.4 mg/dL (4.5-5.3)
[2024-12-05 16:54] LABS: ALT 11 U/L (4-49); AST 27 U/L (17-59); African American GFR (CKD) 55 (>60 ml/min/1.73 sqM); Alkaline Phosphatase 61 U/L (38-126); Anion Gap 14 mmol/L; Blood Urea Nitrogen 40 mg/dL (9-20); Calcium 10.5 mg/dL (8.4-10.2); Carbon Dioxide 21 mmol/L (22-30); Chloride 107 mmol/L (98-107); Glucose 103 mg/dL (74-99); Magnesium 1.4 mg/dL (1.6-2.3); Non-African American GFR(CKD) 48 (>60 ml/min/1.73 sqM); Phosphorus 3.7 mg/dL (2.5-4.5); Sodium 142 mmol/L (137-145); Total Bilirubin 0.7 mg/dL (0.2-1.3); Total Protein 6.3 g/dL (6.3-8.2)
[2024-12-05 17:00] LABS: Partial Thromboplastin Time 19.8 sec (22.0-30.0)
[2024-12-05 17:26] LABS: Eosinophils # (M) 0.19 k/uL (0-0.7); Lymphocytes # (M) 0.87 k/uL (1.0-4.8); Monocytes # (M) 0.53 k/uL (0-1.0); Neutrophils % (M) 58 %; Nucleated Red Blood Cells 0 /100 WBC (0-0); Total Cells Counted 100
[2024-12-05 17:27] LABS: Polychromasia Present
[2024-12-05 17:28] LABS: Large Platelets Present
--- NOTE | 2024-12-05 17:31 | XR ---
EXAMINATION TYPE: XR chest 1V portable DATE OF EXAM: 12/05/2024 5:22 PM COMPARISON: Previous radiograph 08/21/2024. CLINICAL INDICATION: Male, 79 years old with history of cough; [facility] TECHNIQUE: XR chest 1V portable Frontal view of the chest. FINDINGS: Cardiomegaly. Patchy infiltrative opacities throughout the right lung and small to moderate size laye ring right pleural effusion. Consolidation in the left lung apex. Questionable air-fluid level versus artifact from overlying skinfold. Postsurgical changes noted in the partially visualized right shoul melissa. No definitive pneumothorax. IMPRESSION: 1. Patchy infiltrative opacities throughout the right lung with [id number] sized right pleura l effusion. Questionable air-fluid level versus overlying skin fold is indeterminate for cavitary les ion or abscess. Recommend CT chest for further evaluation. 2. Consolidation in the left lung apex. [facility], , 12/05/2024 5:29 PM
[2024-12-05] MEDS ORDERED: RX INFO: IV CONTRAST WAS GIVEN 1 EACH MISC MISCELLANE PRN (18:12)
[2024-12-05 18:19] LABS: Influenza A Not Detected (Not Detectd); Influenza B Not Detected (Not Detectd); RSV Not Detected (Not Detectd)
[2024-12-05] MEDS ORDERED: PNEUMONIA PROTOCOL UTILIZED 1 EACH MISC PO PRN (18:42)
--- NOTE | 2024-12-05 19:09 | CT ---
EXAMINATION TYPE: CT angio chest DATE OF EXAM: 12/05/2024 6:41 PM COMPARISON: Previous PET CT 10/29/2023. CLINICAL INDICATION: Male, 79 years old with history of pe; Pt being sent by PCP for hypercalcemia an d dehydration. TECHNIQUE/CONTRAST: CTA scan of the thorax is performed with IV Contrast, patient injected with 80ml mL of Isovue 370, UT P images are created and reviewed these are created on a separate workstation.. CT DLP: 523.2 mGycm, Automated exposure control for dose reduction was used. FINDINGS: Cardiomegaly without significant pericardial effusion. Calcified metastatic disease and mild dilatati on of the nasogastric aorta measuring up to 4.2 cm diameter at the level of the right pulmonary arter y. Main pulmonary artery mildly dilated measuring 3.6 centers in diameter. Suboptimal timing of contr ast bolus limits evaluation for distal segmental and subsegmental pulmonary emboli. Significant narro wing of the left long pulmonary arteries due to soft tissue encasement. Coronary artery calcification s. Imaging through the lungs demonstrates moderate to large right pleural effusion and trace left pleura l effusion. Extensive soft tissue pleural metastatic deposits throughout the bilateral lungs, right g reater than left. Emphysema. Extensive pleural metastatic disease in the left lung apex with involvem ent of the left first, second and third ribs. No pneumothorax. Partially visualized upper abdomen demonstrates peritoneal carcinomatosis with largest soft tissue im plant in the left retroperitoneum measuring 6.4 x 4.1 cm. Bilateral hydronephrosis partially visualiz ed. Enlarged retroperitoneal lymph node is partially visualized. Extensive osteolytic lesions through out the visualized axial and appendicular skeleton compatible with osseous metastatic disease. IMPRESSION: 1. No definite acute pulmonary embolism within the limitations described above. 2. Significant progression of metastatic disease with numerous pleural-based metastatic deposits and involvement of the left-sided ribs. Additionally, there is peritoneal carcinomatosis in the partiall y visualized upper abdomen. 3. Moderate to large right pleural effusion. Trace left pleural effusion. 4. Extensive lytic osseous metastatic disease throughout the visualized axial and appendicular skele ton. 5. Partially visualized bilateral hydronephrosis. 6. Additional nonacute findings as above. [facility], , 12/05/2024 7:07 PM
[2024-12-05] MEDS: PIPERACILLIN-TAZOBACTAM 3.375 GM in SODIUM CHLORIDE 0.9% 100 ML IVPB STA (19:52)
[2024-12-05] MEDS: LEVOFLOXACIN 750MG-D5W PMX 750 MG in DEXTROSE/WATER 1 150ML.BAG IVPB STA (20:33)
[2024-12-05] MEDS: IPRATROPIUM-ALBUTEROL 3 ML NEB INHALATION STA (20:55)
[2024-12-06] MEDS: PIPERACILLIN-TAZOBACTAM 3.375 GM in SODIUM CHLORIDE 0.9% 100 ML IVPB SCH (03:08)
--- NOTE | 2024-12-06 03:12 | P.CNPUL ---
History of Present Illness Consult date: 12/06/24 Requesting physician: Mahendra Salas Reason for consult: other (hemoptysis) Chief complaint: Abnormal labs History of present illness: Patient is a 79-year-old male with past medical history significant for hypertension, hyperlipidemia, KYM, multiple myeloma. His PCP is Dr. Jaimes. Also, follows with his oncologist Dr. Broderick. Patient had a bone marrow biopsy back on 11/11/2023 which was positive for multiple myeloma. Previously on systemic treatment, which he had stopped, apparently confused on whether he should continue the medication. Patient sent in by his oncologist yesterday for abnormal labs. On arrival, complaining of increased work of breathing over the last month. Occasional cough with mucus and occasional blood tinge. Workup in the ED including a chest CT angio which did not show any definite acute central pulmonary embolism, but technically limited due to suboptimal timing of contrast bolus. Overall, findings were consistent with disease progression. There was extensive soft tissue pleural metastatic deposits throughout bilateral lung henderson right greater than left. Extensive pleural metastatic disease in the left apex with involvement of the left first, second, and third ribs. Large right-sided pleural effusion and trace left-sided pleural effusion. Partially visualized upper abdomen demonstrating peritoneal carcinomatosis with large soft tissue implant in the left retroperitoneum measuring 6.4 x 4.1 cm. Bilateral hydronephrosis partially visualized. Enlarged retroperitoneal lymph node. Extensive osteolytic lesions throughout the visualized axial and appendicular skeleton compatible with osseous metastatic disease. CBC: WBC count 3.8, hemoglobin 9, platelets 134. CMP: Sodium 142, potassium 4, chloride 107, serum bicarb 21, BUN 40, creatinine 1.4, glucose 103. Lactic 1.2. Ionized calcium 5.4, magnesium 1.4, phosphorus 3.7. LFTs not elevated. Troponin 0.018. NT proBNP 1550. Viral screen negative for influenza, RSV, COVID. Patient currently being seen on the oncology floor. He is awake and alert, on 3 L/min nasal cannula, tachypneic in the mid 20s per minute. States he has been progressively more short of breath over the last month. States he uses 2 L supplemental oxygen hooked to his CPAP at bedtime. Denies chest pain, heart palpitations, lightheadedness or syncopal events, lower extremity edema. Does report occasional productive cough with brown mucus and occasional blood tinge. Denies any fevers, chills, chest pain, olivia hemoptysis. Denies known sick contacts. Appetite has been poor. Denies abdominal pain, nausea, vomiting, diarrhea, melena, hematochezia. Denies anticoagulant use. Denies history of previous thoracentesis. Patient was empirically covered on a combination of Zosyn and Levaquin in the ED. Current vital signs: Temperature 97.9 F, heart rate 100 bpm, blood pressure 145/66 mmHg, SpO2 recorded at 94% on 2 L/min nasal cannula. Review of Systems Constitutional: Reports fatigue, Reports poor appetite, Reports weight loss, Denies chills, Denies fever, Denies night sweats, Denies weight gain Ears, nose, mouth and throat: Denies headache, Denies nasal congestion, Denies nasal discharge, Denies post-nasal drip, Denies sinus pain, Denies sinus pressure, Denies sore throat Cardiovascular: Reports dyspnea on exertion, Denies chest pain, Denies leg edema, Denies lightheadedness, Denies orthopnea, Denies palpitations, Denies paroxysmal nocturnal dyspnea, Denies syncope Respiratory: Reports as per HPI Gastrointestinal: Reports as per HPI Genitourinary: Denies dysuria Musculoskeletal: Denies limitation of motion Integumentary: Denies rash Neurological: Denies aphasia, Denies gait dysfunction, Denies head injury, Denies headaches, Denies numbness, Denies paralysis, Denies paresthesias, Denies seizures, Denies syncope, Denies visual changes Psychiatric: Denies anxiety, Denies depression Past Medical History Past Medical History: Cancer, Hyperlipidemia, Hypertension Additional Past Medical History / Comment(s): multiple myeloma History of Any Multi-Drug Resistant Organisms: None Reported Past Surgical History: Bowel Resection, Orthopedic Surgery Additional Past Surgical History / Comment(s): Broken arm that required surgery, colon resection Past Anesthesia/Blood Transfusion Reactions: No Reported Reaction Past Psychological History: No Psychological Hx Reported Smoking Status: Former smoker Past Alcohol Use History: None Reported Past Drug Use History: None Reported Medications and Allergies Home Medications Medication Instructions Recorded Confirmed Type Omeprazole 20 mg PO DAILY 11/06/23 12/05/24 History amLODIPine [Norvasc] 5 mg PO DAILY tab 11/13/23 12/05/24 Rx Aspirin 81 mg PO DAILY 03/09/24 12/05/24 History Docusate Sodium 250 mg PO DAILY 03/09/24 12/05/24 History Metoprolol Succinate (ER) [Toprol 25 mg PO DAILY 03/09/24 12/05/24 History Xl] clonazePAM [KlonoPIN] 0.5 mg PO HS 03/09/24 12/05/24 History Acetaminophen Tab [Tylenol Tab] 1,000 mg PO Q6H PRN 12/05/24 12/05/24 History Atorvastatin [Lipitor] 20 mg PO HS 12/05/24 12/05/24 History Calcium Citrate/Vitamin D3 1 tab PO DAILY 12/05/24 12/05/24 History [Calcium Cit 315-Vit D3 6.25 Mcg (250 Iu)] Diphenoxylate HCl/Atropine 1 tab PO QID PRN 12/05/24 12/05/24 History [Lomotil 2.5-0.025 mg Tablet] Loperamide [Imodium] 2 - 4 mg PO QID PRN 12/05/24 12/05/24 History Multivit-Min/FA/Lycopen/Lutein 1 tab PO DAILY 12/05/24 12/05/24 History [Centrum Silver Tablet] Naproxen Sodium [Aleve] 220 mg PO BID PRN 12/05/24 12/05/24 History Allergies Allergy/AdvReac Type Severity Reaction Status Date / Time No Known Allergies Allergy Verified 12/05/24 18:09 Physical Exam Vitals: Vital Signs Temp Pulse Pulse Resp BP BP Pulse Ox 12/06/24 01:17 97.9 F 100 16 145/66 94 L 12/05/24 21:09 98.1 F 101 H 18 146/66 96 12/05/24 20:24 96 22 144/67 95 12/05/24 18:23 101 H 20 143/70 94 L 12/05/24 16:22 98 20 94 L 12/05/24 15:47 97.4 F L 92 18 146/65 94 L Intake and Output 12/05/24 12/05/24 12/06/24 14:59 22:59 06:59 Output Total 200 Balance -200 Output: Urine 200 Other: Voiding Method External Catheter Weight 82.554 kg GENERAL EXAM: Alert, 79-year-old white male, fairly comfortable in no apparent distress. HEAD: Normocephalic and atraumatic EYES: Normal reaction of pupils, equal size. NOSE: Clear with pink turbinates. THROAT: No erythema or exudates. NECK: No masses, no JVD. CHEST: No chest wall deformity. LUNGS: Equal air entry with diminished right lung henderson to auscultation. On 3 L/min nasal cannula. Minimally tachypneic, no conversational dyspnea or accessory muscle use. CVS: S1 and S2 normal with no audible murmur, regular rhythm. No extra heart sounds ABDOMEN: No hepatosplenomegaly, active bowel sounds, no guarding or rigidity. SPINE: No scoliosis or deformity SKIN: No rashes CENTRAL NERVOUS SYSTEM: No focal deficits, tone is normal in all 4 extremities. EXTREMITIES: There is no peripheral edema, clubbing, or cyanosis. Peripheral pulses are intact. Results - Laboratory Findings CBC and BMP: 12/05/24 16:30 12/05/24 16:30 PT/INR, D-dimer PT 11.0 sec (10.0-12.5) 12/05/24 16:30 INR 1.0 (<1.2) 12/05/24 16:30 Abnormal lab findings: Abnormal Labs 12/05/24 12/05/24 12/05/24 16:30 16:30 16:30 RBC 2.70 L Hgb 9.0 L Hct 26.9 L Plt Count 134 L Lymphocytes # (Manual) 0.87 L APTT 19.8 L Carbon Dioxide 21 L BUN 40 H Creatinine 1.40 H Glucose 103 H Calcium 10.5 H Ionized Calcium Maggie 5.4 H Magnesium 1.4 L - Diagnostic Findings Chest x-ray: image reviewed CT scan - chest: image reviewed Assessment and Plan Assessment: Acute hypoxemic respiratory failure, currently on 3 L/min nasal cannula, chest CT angio which did not show any definite acute central pulmonary embolism, but technically limited due to suboptimal timing of contrast bolus. Overall, findings were consistent with disease progression. There was extensive soft tissue pleural metastatic deposits throughout bilateral lung henderson right greater than left. Extensive pleural metastatic disease in the left apex with involvement of the left first, second, and third ribs. Large right-sided pleural effusion and trace left-sided pleural effusion. Partially visualized upper abdomen demonstrating peritoneal carcinomatosis with large soft tissue im plant in the left retroperitoneum measuring 6.4 x 4.1 cm. Bilateral hydronephrosis partially visualized. Enlarged retroperitoneal lymph node. Extensive osteolytic lesions throughout the visualized, compatible with osseous metastatic disease. Large right-sided pleural effusion, possibly malignant Multiple myeloma, chest CT angio concerning for disease progression Acute kidney injury, with bilateral hydronephrosis Hypercalcemia, ionized calcium 5.4 Hypomagnesemia Chronic anemia Hypertension History of hyperlipidemia History of obstructive sleep apnea with CPAP Plan: Patient currently on 3 L/min nasal cannula, wean as tolerated Chest CT findings reviewed with patient Possible candidate for right-sided thoracentesis, which will be reviewed with Dr. Ramos Obtain ultrasound of the chest with markings Patient previously started on empiric antibiotics in the ED, check procalcitonin level, and manage accordingly Viral 4 Plex screen negative for influenza, RSV, COVID Consult medical oncology Further recommendations to come I have personally seen and examined the patient, performed the documentation and the assessment and plan as written. Number of minutes spent on the visit:20 Time with Patient: Greater than 30
[2024-12-06] MEDS: METOPROLOL SUCCINATE (ER) 25 MG TAB.ER.24H PO SCH (06:16)
[2024-12-06 07:28] LABS: Glucose,Whole Blood 104 mg/dL (70-110)
[2024-12-06 07:35] LABS: Glucose,Whole Blood 100 mg/dL (70-110)
--- NOTE | 2024-12-06 08:11 | XR ---
EXAMINATION TYPE: XR chest 1V portable DATE OF EXAM: 12/06/2024 6:34 AM COMPARISON: None. CLINICAL INDICATION: Male, 79 years old with history of pneumonia, TECHNIQUE: XR chest 1V portable views of the chest are obtained. FINDINGS: Patchy infiltrate right medial lung base with right-sided pleural effusion. Left apical thickening ma y reflect metastatic disease. The heart is stable. Probable mediastinal adenopathy as there is thickening of the paratracheal stripes. Degenerative nogueira ges are seen of the dorsal spine. IMPRESSION: 1. Overall stable appearance of the chest [facility], , 12/06/2024 8:09 AM
[2024-12-06 08:52] LABS: BUN/Creat Ratio 22.79 Ratio (12.00-20.00); Blood Urea Nitrogen 31.9 mg/dL (9.0-27.0); Calcium 9.6 mg/dL (8.7-10.3); Carbon Dioxide 21.2 mmol/L (21.6-31.8); Chloride 109 mmol/L (96-109); Glucose 90 mg/dL (70-110); Potassium 3.9 mmol/L (3.5-5.5); Sodium 145 mmol/L (135-145)
[2024-12-06] MEDS: HEPARIN SOD,PORK IN 0.45% NACL 25,000 UNIT in 0.45% NACL 1 250ML.BAG IV SCH (09:01)
[2024-12-06 09:03] LABS: Basophils % (A) 0 %; Eosinophils # (A) 0.2 k/uL (0-0.7); Eosinophils % (A) 4 %; HCT 27.4 % (39.0-53.0); HGB 9.3 gm/dL (13.0-17.5); Hypochromasia Slight; Lymphocytes # (A) 0.9 k/uL (1.0-4.8); Lymphocytes % (A) 16 %; MCHC 34.1 g/dL (31.0-37.0); MCV 102.7 fL (80.0-100.0); Macrocytosis Slight; Mean Platelet Volume 9.3; Monocytes # (A) 0.8 k/uL (0-1.0); Monocytes % (A) 14 %; Neutrophils # (A) 3.3 k/uL (1.3-7.7); Neutrophils % (A) 62 %; Platelet Count 122 k/uL (150-450); RBC 2.67 m/uL (4.30-5.90); RDW 15.4 % (11.5-15.5); WBC 5.4 k/uL (3.8-10.6)
[2024-12-06] MEDS: MAGNESIUM SULFATE-D5W PMX 1 GM in DEXTROSE/WATER 1 100ML.BAG IVPB ONE (09:04)
--- NOTE | 2024-12-06 09:04 | US ---
EXAMINATION TYPE: US chest DATE OF EXAM: 12/06/2024 COMPARISON: CT CHEST(12/05/2024) CLINICAL INDICATION: Male, 79 years old with history of right sided pleural effusion; w markings TECHNIQUE: Grayscale imaging of the chest. Targeted ultrasound of the posterior lower right hemithor ax FINDINGS: EXAM MEASUREMENTS: Right Pleural Effusion pocket size: 11.3 cm Right skin surface to fluid distance: 4.3 cm Skin to lung tissue: 3.1cm Right side marked for possible thoracentesis outside the dept. Pulmonologists are able to review the images in the patient?s EMR. IMPRESSIONS: As above [facility], , 12/06/2024 9:02 AM
[2024-12-06] MEDS: HEPARIN SODIUM 1,000 UN/ML (10ML VL) IV ONE (09:05)
[2024-12-06] MEDS: DEXTROSE 5% IN WATER 250 ML with AMIODARONE 300 MG IV ONE (09:10)
[2024-12-06 09:23] LABS: INR 1.3 (<1.2); Prothrombin Time 13.8 sec (10.0-12.5)
--- NOTE | 2024-12-06 09:58 | P.CRDCN ---
History of Present Illness Consult date: 12/06/24 Consult reason: atrial fibrillation History of present illness: The patient is a 79-year-old male who is currently being treated by Dr. Meggan markham for multiple myeloma. He was seen in office for increased shortness of breath and was referred to the local emergency room. He was admitted for acute hypoxic respiratory failure. Overnight patient developed A-fib with RVR and therefore cardiology was consulted. He was transferred to the ICU. DIAGNOSTICS: Chest x-ray shows right pleural effusion with patchy infiltrates throughout CT scan of the chest negative for acute pulmonary embolism. Significant metastatic disease with numerous pleural-based metastatic deposits, as well as peritoneal carcinomatosis in the upper abdomen and extensive lytic osseous metastatic disease. Moderate to large right pleural effusion. Chest ultrasound shows pleural effusion with 11 cm pocket Lab data: WBC 5.4, hemoglobin 9.3, hematocrit 27.4, platelet 122, sodium 145, potassium 3.9, BUN 31, creatinine 1.4, calcium 9.6, Phos 3.7, magnesium 1.4, AST 27, ALT 11, troponin 0.01, BNP 1550, negative for influenza A, B, RSV, and COVID REVIEW OF SYSTEMS: No fever or chills. No cough or expectoration. No diaphoresis. Patient denies headache, dizziness, blurred vision, double vision. Patient denies any stomach discomfort. No nausea, vomiting. No hematochezia. No hematemesis. Denies any black stools or blood in his stools. Denies dysuria or hematuria. No muscle weakness or numbness. Positive for shortness of breath. Denies chest pain. PHYSICAL EXAMINATION: This is a 79-year-old male in mild respiratory distress at the time of my examination. HEENT: Head is atraumatic, normocephalic. Pupils are equal, round. There is no jugular venous distention. No carotid bruit is heard. CHEST EXAMINATION: Lungs are diminished to auscultation, worse on the right. No chest wall tenderness is noted on palpation or with deep breathing. HEART EXAMINATION: Irregular rate and rhythm. S1, S2 heard. No murmurs, gallops or rub. ABDOMEN: Soft, nontender. Bowel sounds are heard. No organomegaly noted. EXTREMITIES: 2+ peripheral pulses with no evidence of peripheral edema and no calf tenderness noted. NEUROLOGIC EXAMINATION: Patient is awake, alert and oriented x3. FINAL ASSESSMENT AND PLAN: New onset of A-fib with RVR Acute hypoxic respiratory failure Large pleural effusion, right-sided, likely malignant Multiple myeloma Acute kidney injury Chronic anemia Hypertension Hypercalcemia PLAN: Start Amiodarone and heparin drip Not a candidate for long-term anticoagulation with multiple comorbid conditions, however this to be discussed with hematology Hold heparin as recommended by pulmonology for possible thoracentesis Further recommendations to be based upon clinical course I am dictating on behalf of Dr Neri Cox's history/physical and as sessment/plan. Past Medical History Past Medical History: Cancer, Hyperlipidemia, Hypertension Additional Past Medical History / Comment(s): multiple myeloma History of Any Multi-Drug Resistant Organisms: None Reported Past Surgical History: Bowel Resection, Orthopedic Surgery Additional Past Surgical History / Comment(s): Broken arm that required surgery, colon resection Past Anesthesia/Blood Transfusion Reactions: No Reported Reaction Past Psychological History: No Psychological Hx Reported Smoking Status: Former smoker Past Alcohol Use History: None Reported Past Drug Use History: None Reported Medications and Allergies Home Medications Medication Instructions Recorded Confirmed Type Omeprazole 20 mg PO DAILY 11/06/23 12/05/24 History amLODIPine [Norvasc] 5 mg PO DAILY tab 11/13/23 12/05/24 Rx Aspirin 81 mg PO DAILY 03/09/24 12/05/24 History Docusate Sodium 250 mg PO DAILY 03/09/24 12/05/24 History Metoprolol Succinate (ER) [Toprol 25 mg PO DAILY 03/09/24 12/05/24 History Xl] clonazePAM [KlonoPIN] 0.5 mg PO HS 03/09/24 12/05/24 History Acetaminophen Tab [Tylenol Tab] 1,000 mg PO Q6H PRN 12/05/24 12/05/24 History Atorvastatin [Lipitor] 20 mg PO HS 12/05/24 12/05/24 History Calcium Citrate/Vitamin D3 1 tab PO DAILY 12/05/24 12/05/24 History [Calcium Cit 315-Vit D3 6.25 Mcg (250 Iu)] Diphenoxylate HCl/Atropine 1 tab PO QID PRN 12/05/24 12/05/24 History [Lomotil 2.5-0.025 mg Tablet] Loperamide [Imodium] 2 - 4 mg PO QID PRN 12/05/24 12/05/24 History Multivit-Min/FA/Lycopen/Lutein 1 tab PO DAILY 12/05/24 12/05/24 History [Centrum Silver Tablet] Naproxen Sodium [Aleve] 220 mg PO BID PRN 12/05/24 12/05/24 History Allergies Allergy/AdvReac Type Severity Reaction Status Date / Time No Known Allergies Allergy Verified 12/05/24 18:09 Physical Exam Vitals: Vital Signs Temp Pulse Pulse Resp BP BP Pulse Ox 12/06/24 09:15 137 H 29 H 109/58 94 L 12/06/24 09:00 149 H 30 H 115/61 94 L 12/06/24 08:45 135 H 35 H 81/63 96 12/06/24 08:30 130 H 34 H 84/54 94 L 12/06/24 08:15 129 H 35 H 109/61 92 L 12/06/24 08:00 98.1 F 114 H 32 H 118/86 95 12/06/24 07:45 133 H 26 H 116/71 94 L 12/06/24 07:33 126 H 33 H 12/06/24 07:08 98 F 111 H 20 110/60 96 12/06/24 01:17 97.9 F 100 16 145/66 94 L 12/05/24 21:09 98.1 F 101 H 18 146/66 96 12/05/24 20:24 96 22 144/67 95 12/05/24 18:23 101 H 20 143/70 94 L 12/05/24 16:22 98 20 94 L 12/05/24 15:47 97.4 F L 92 18 146/65 94 L Intake and Output 12/05/24 12/06/24 12/06/24 22:59 06:59 14:59 Intake Total 250 Output Total 200 400 Balance -200 -150 Intake: Intake, IV Titration 250 Amount Levofloxacin 750Mg-D5w 150 Pmx 750 mg In Dextrose/ Water 1 150ml.bag @ 100 mls/hr IVPB Q24H [facility] Rx#: [id number] Piperacillin-Tazobactam 3 100 .375 gm In Sodium Chloride 0.9% 100 ml @ 25 mls/hr IVPB Q8H [facility] Rx#: [id number] Output: Urine 200 400 Other: Voiding Method External Catheter External Catheter Weight 82.554 kg Results 12/06/24 08:36 12/06/24 04:32 Cardiac Enzymes 12/05/24 12/05/24 Range/Units 16:30 16:30 AST 27 (17-59) U/L Troponin I 0.018 (0.000-0.034) ng/mL Coagulation 12/05/24 12/06/24 Range/Units 16:30 08:36 PT 11.0 13.8 H (10.0-12.5) sec APTT 19.8 L 42.0 H (22.0-30.0) sec CBC 12/05/24 12/06/24 Range/Units 16:30 08:36 WBC 3.8 5.4 (3.8-10.6) k/uL RBC 2.70 L 2.67 L (4.30-5.90) m/uL Hgb 9.0 L 9.3 L (13.0-17.5) gm/dL Hct 26.9 L 27.4 L (39.0-53.0) % Plt Count 134 L 122 L (150-450) k/uL Comprehensive Metabolic Panel 12/05/24 12/06/24 Range/Units 16:30 04:32 Sodium 142 145 (137-145) mmol/L Potassium 4.0 3.9 (3.5-5.1) mmol/L Chloride 107 109 (98-107) mmol/L Carbon Dioxide 21 L 21.2 L (22-30) mmol/L BUN 40 H 31.9 H (9-20) mg/dL Creatinine 1.40 H 1.4 (0.66-1.25) mg/dL Glucose 103 H 90 (74-99) mg/dL Calcium 10.5 H 9.6 (8.4-10.2) mg/dL AST 27 (17-59) U/L ALT 11 (4-49) U/L Alkaline Phosphatase 61 (38-126) U/L Total Protein 6.3 (6.3-8.2) g/dL Albumin 4.0 (3.5-5.0) g/dL Current Medications Generic Name Dose Route Start Last Admin Trade Name Freq PRN Reason Stop Dose Admin Albuterol/Ipratropium 3 ml 12/05/24 18:42 Ipratropium-Albuterol 3 Ml Neb INHALATION RT-Q4H PRN shortness of breath Heparin Sodium (Porcine) 0 unit 12/06/24 08:29 Heparin Sodium 1,000 Un/Ml (10ml Vl) IV PER PROTOCOL PRN Low PTT Protocol Piperacillin Sod/Tazobactam 100 mls @ 25 mls/hr 12/06/24 03:00 12/06/24 03:08 Sod 3.375 gm/ Sodium Chloride IVPB 25 mls/hr Q8H [facility] Administration Protocol Levofloxacin 750 mg/ IV 150 mls @ 100 mls/hr 12/06/24 19:00 Solution IVPB Q24H [facility] Protocol Heparin Sodium/Sodium Chloride 250 mls @ 9.906 mls/hr 12/06/24 08:30 12/06/24 09:01 25,000 unit/ Sodium Chloride IV 12 units/kg/hr .Q24H [facility] 9.906 mls/hr Administration Protocol 12 UNITS/KG/HR Amiodarone HCl 360 mg/ 200 mls @ 33.333 mls/hr 12/06/24 08:29 Dextrose/Water IV 12/06/24 14:28 .Q6H ONE Protocol 1 MG/MIN Amiodarone HCl 450 mg/ 250 mls @ 16.667 mls/hr 12/06/24 14:30 Dextrose/Water IV 12/07/24 08:29 .Q15H [facility] Protocol 0.5 MG/MIN Amiodarone HCl 300 mg/ 256 mls @ 128 mls/hr 12/06/24 08:30 12/06/24 09:10 Dextrose/Water IV 12/06/24 10:29 128 mls/hr .Q2H ONE Administration Metoprolol Succinate 25 mg 12/06/24 06:09 12/06/24 06:16 Metoprolol Succinate (Er) 25 Mg Tab.Er.24h PO 25 mg DAILY [facility] Administration Miscellaneous Information 1 each 12/05/24 18:12 Rx Info: Iv Contrast Was Given 1 Each Misc MISCELLANE 12/07/24 18:12 DAILY PRN Per Protocol Miscellaneous Information 1 each 12/05/24 18:42 Pneumonia Protocol Utilized 1 Each Misc PO ONCE PRN Per Protocol Intake and Output 12/05/24 12/06/24 12/06/24 22:59 06:59 14:59 Intake Total 250 Output Total 200 400 Balance -200 -150 Intake: Intake, IV Titration 250 Amount Levofloxacin 750Mg-D5w 150 Pmx 750 mg In Dextrose/ Water 1 150ml.bag @ 100 mls/hr IVPB Q24H [facility] Rx#: [id number] Piperacillin-Tazobactam 3 100 .375 gm In Sodium Chloride 0.9% 100 ml @ 25 mls/hr IVPB Q8H [facility] Rx#: [id number] Output: Urine 200 400 Other: Voiding Method External Catheter External Catheter Weight 82.554 kg 12/06/24 08:36 12/06/24 04:32
[2024-12-06 10:54] LABS: ALT 10 U/L (4-49); AST 24 U/L (17-59); African American GFR (CKD) 55 (>60 ml/min/1.73 sqM); Albumin 3.4 g/dL (3.5-5.0); Alkaline Phosphatase 56 U/L (38-126); Anion Gap 12 mmol/L; Blood Urea Nitrogen 32 mg/dL (9-20); Calcium 9.9 mg/dL (8.4-10.2); Carbon Dioxide 21 mmol/L (22-30); Chloride 108 mmol/L (98-107); Glucose 109 mg/dL (74-99); Non-African American GFR(CKD) 47 (>60 ml/min/1.73 sqM); Sodium 141 mmol/L (137-145); Total Bilirubin 0.6 mg/dL (0.2-1.3); Total Protein 5.7 g/dL (6.3-8.2)
[2024-12-06] MEDS: AMIODARONE 360 MG in DEXTROSE 5% IN WATER 200 ML IV ONE (11:17)
--- NOTE | 2024-12-06 12:28 | P.HPIM ---
History of Present Illness H&P Date: 12/06/24 History of present illness; patient is 79-year-old gentleman with past medical history significant for multiple myeloma, hypertension, hyperlipidemia presented to the ER because of abnormal labs. Patient normally sees Dr. Broderick and was on systemic treatment which apparently had stopped taking. Patient had blood work drawn outpatient and was told by the building official to come to the ER. Patient states over the last couple of days he has been having increasing shortness of breath. Shortness of breath was present at rest as on exertion. Patient was complaining of being lethargic and weakness. Patient also complaining of productive cough with occasional episodes of hemoptysis. Denies any chest pain. There is no complaint of fever or chills. There is no complaint of orthopnea or PND. Patient denies any nausea, vomiting, pain. Patient denies any lightheaded or dizziness. Initial lab work done in the ER showed WBC 3.8, hemoglobin 9, platelet count 134 sodium 142, potassium 4, BUN 40, creatinine 1.40 glucose 103, lactate 1.2, calcium 10.5, magnesium 1.4 bilirubin 0.7, AST 27, ALT 11, troponin 0.018, proBNP 1550 Influenza A not detected Influenza B not detected RSV not detected COVID-19 not detected EKG done in the ER showed heart rate of , no ST segment elevation or depression seen, no T-wave inversions seen. Chest x-ray done in the ER showed patchy infiltrative opacity throughout the right lung with small to moderate size right pleural effusion. Questionable air-fluid level versus overlying skinfold is indeterminate for cavitary lesion or abscess. Recommend CT chest for further evaluation, consolidation in the left lung apex CT chest PE protocol done showed no definite acute PE within the vasculature, significant progression of metastatic disease with numerous pleural-based metastatic deposits and involvement of the left-sided ribs additionally there is peritoneal carcinomatosis in the partially visualized upper abdomen. Patient admitted to internal medicine service REVIEW OF SYSTEMS: CONSTITUTIONAL: No fever, no malaise, no fatigue. HEENT: No recent visual problems or hearing problems. Denied any sore throat. CARDIOVASCULAR: As mentioned above PULMONARY: As mentioned above GASTROINTESTINAL: No diarrhea, no nausea, no vomiting, no abdominal pain. NEUROLOGICAL: No headaches, no weakness, no numbness. HEMATOLOGICAL: Denies any bleeding or petechiae. GENITOURINARY: Denies any burning micturition, frequency, or urgency. MUSCULOSKELETAL/RHEUMATOLOGICAL: Denies any joint pain, swelling, or any muscle pain. ENDOCRINE: Denies any polyuria or polydipsia. The rest of the 14-point review of systems is negative. PHYSICAL EXAMINATION: GENERAL: The patient is alert and oriented x3, ill looking HEENT: Pupils are round and equally reacting to light. EOMI. No scleral icterus. No conjunctival pallor. Normocephalic, atraumatic. No pharyngeal erythema. No thyromegaly. CARDIOVASCULAR: S1 and S2 present. No murmurs, rubs, or gallops. PULMONARY: Diminished breath sounds at the bases bilaterally, no wheezing or crackles. ABDOMEN: Soft, nontender, nondistended, normoactive bowel sounds. No palpable organomegaly. MUSCULOSKELETAL: No joint swelling or deformity. EXTREMITIES: No cyanosis, clubbing, or pedal edema. NEUROLOGICAL: Gross neurological examination did not reveal any focal deficits. SKIN: No rashes. Assessment and plan Hemoptysis Acute hypoxemic respiratory failure A-fib with RVR Right-sided pleural effusion Bacterial pneumonia Multiple myeloma with disease progression Peritoneal carcinomatosis Acute kidney injury Hypomagnesemia Hypercalcemia Chronic anemia Hypertension History of hyperlipidemia History of KYM Monitor vital signs Monitor CBC Monitor CMP Continue telemetry monitoring Trend troponin Ordered Pro-Rudy Ordered blood cultures ordered sputum culture Start IV Zosyn and Levaquin Ordered amiodarone drip Ordered heparin Consult oncology Consult cardiology Consult pulmonary critical care Labs and medication were reviewed.. Continue same treatment. Continue with symptomatic treatment. Resume home medication. Monitor labs and vitals. DVT and GI prophylaxis. Further recommendations as per clinical course of the patient Dictation was produced using [employer] dictation software. please excuse any grammatical, word or spelling errors. Past Medical History Past Medical History: Cancer, Hyperlipidemia, Hypertension Additional Past Medical History / Comment(s): multiple myeloma History of Any Multi-Drug Resistant Organisms: None Reported Past Surgical History: Bowel Resection, Orthopedic Surgery Additional Past Surgical History / Comment(s): Broken arm that required surgery, colon resection Past Anesthesia/Blood Transfusion Reactions: No Reported Reaction Past Psychological History: No Psychological Hx Reported Smoking Status: Former smoker Past Alcohol Use History: None Reported Past Drug Use History: None Reported Medications and Allergies Home Medications Medication Instructions Recorded Confirmed Type Omeprazole 20 mg PO DAILY 11/06/23 12/05/24 History amLODIPine [Norvasc] 5 mg PO DAILY tab 11/13/23 12/05/24 Rx Aspirin 81 mg PO DAILY 03/09/24 12/05/24 History Docusate Sodium 250 mg PO DAILY 03/09/24 12/05/24 History Metoprolol Succinate (ER) [Toprol 25 mg PO DAILY 03/09/24 12/05/24 History Xl] clonazePAM [KlonoPIN] 0.5 mg PO HS 03/09/24 12/05/24 History Acetaminophen Tab [Tylenol Tab] 1,000 mg PO Q6H PRN 12/05/24 12/05/24 History Atorvastatin [Lipitor] 20 mg PO HS 12/05/24 12/05/24 History Calcium Citrate/Vitamin D3 1 tab PO DAILY 12/05/24 12/05/24 History [Calcium Cit 315-Vit D3 6.25 Mcg (250 Iu)] Diphenoxylate HCl/Atropine 1 tab PO QID PRN 12/05/24 12/05/24 History [Lomotil 2.5-0.025 mg Tablet] Loperamide [Imodium] 2 - 4 mg PO QID PRN 12/05/24 12/05/24 History Multivit-Min/FA/Lycopen/Lutein 1 tab PO DAILY 12/05/24 12/05/24 History [Centrum Silver Tablet] Naproxen Sodium [Aleve] 220 mg PO BID PRN 12/05/24 12/05/24 History Allergies Allergy/AdvReac Type Severity Reaction Status Date / Time No Known Allergies Allergy Verified 12/05/24 18:09 Physical Exam Vitals: Vital Signs Temp Pulse Pulse Resp BP BP Pulse Ox 12/06/24 07:08 98 F 111 H 20 110/60 96 12/06/24 01:17 97.9 F 100 16 145/66 94 L 12/05/24 21:09 98.1 F 101 H 18 146/66 96 12/05/24 20:24 96 22 144/67 95 12/05/24 18:23 101 H 20 143/70 94 L 12/05/24 16:22 98 20 94 L 12/05/24 15:47 97.4 F L 92 18 146/65 94 L Intake and Output 12/05/24 12/06/24 12/06/24 22:59 06:59 14:59 Intake Total 250 Output Total 200 400 Balance -200 -150 Intake: Intake, IV Titration 250 Amount Levofloxacin 750Mg-D5w 150 Pmx 750 mg In Dextrose/ Water 1 150ml.bag @ 100 mls/hr IVPB Q[facility]H [facility] Rx#: [id number] Piperacillin-Tazobactam 3 100 .375 gm In Sodium Chloride 0.9% 100 ml @ 25 mls/hr IVPB Q8H [facility] Rx#: [id number] Output: Urine 200 400 Other: Voiding Method External Catheter Weight 82.554 kg Results CBC & Chem 7: 12/06/24 08:36 12/06/24 10:00 Labs: Abnormal Lab Results - Last 24 Hours (Table) 12/05/24 12/05/24 12/05/24 Range/Units 16:30 16:30 16:30 RBC 2.70 L (4.30-5.90) m/uL Hgb 9.0 L (13.0-17.5) gm/dL Hct 26.9 L (39.0-53.0) % Plt Count 134 L (150-450) k/uL Lymphocytes # (Manual) 0.87 L (1.0-4.8) k/uL APTT 19.8 L (22.0-30.0) sec Carbon Dioxide 21 L (22-30) mmol/L Anion Gap (4.00-12.00) mmol/L BUN 40 H (9-20) mg/dL Creatinine 1.40 H (0.66-1.25) mg/dL Est GFR (CKD-EPI) (>=60) BUN/Creatinine Ratio (12.00-20.00) Ratio Glucose 103 H (74-99) mg/dL Calcium 10.5 H (8.4-10.2) mg/dL Ionized Calcium Maggie 5.4 H (4.5-5.3) mg/dL Magnesium 1.4 L (1.6-2.3) mg/dL 12/06/24 Range/Units 04:32 RBC (4.30-5.90) m/uL Hgb (13.0-17.5) gm/dL Hct (39.0-53.0) % Plt Count (150-450) k/uL Lymphocytes # (Manual) (1.0-4.8) k/uL APTT (22.0-30.0) sec Carbon Dioxide 21.2 L (22-30) mmol/L Anion Gap 14.80 H (4.00-12.00) mmol/L BUN 31.9 H (9-20) mg/dL Creatinine (0.66-1.25) mg/dL Est GFR (CKD-EPI) 51 L (>=60) BUN/Creatinine Ratio 22.79 H (12.00-20.00) Ratio Glucose (74-99) mg/dL Calcium (8.4-10.2) mg/dL Ionized Calcium Maggie (4.5-5.3) mg/dL Magnesium (1.6-2.3) mg/dL Thrombosis Risk Factor Assmnt - Choose All That Apply Any of the Below Risk Factors Present?: No Other Risk Factors: Yes Each Risk Factor Represents 2 Points: Malignancy Each Risk Factor Represents 3 Points: Age 75 years or older Other congenital or acquired thrombophilia - If yes, enter type in comment: No Thrombosis Risk Factor Assessment Total Risk Factor Score: 5 Thrombosis Risk Factor Assessment Level: High Risk
--- NOTE | 2024-12-06 15:37 | XR ---
The EXAMINATION TYPE: XR chest 1V portable DATE OF EXAM: 12/06/2024 3:31 PM COMPARISON: 12/06/2024 CLINICAL INDICATION: Male, 79 years old with history of Post right thoracentesis, TECHNIQUE: XR chest 1V portable views of the chest are obtained. FINDINGS: Right-sided pleural effusion is smaller in size. There is evidence for pneumothorax with apical pleur al distance of 1.9 cm estimated at approximately 10% size. The heart is stable. Hilar and mediastinal structures are within normal limits. Degenerative changes are seen of the dorsal spine. IMPRESSION: 1. Estimated 10% right-sided pneumothorax. A Red level critical message alert has been initiated for Zhen Parker MD via the [employer] System on 12/06/2024 3:34 PM. This message alert has been sent to Zhen Parker MD via the preferences provided by the clinician for the receipt of Radiology Critical Findings. Message ID [id number]. [facility], , 12/06/2024 3:34 PM
--- NOTE | 2024-12-06 17:11 | XR ---
EXAMINATION TYPE: XR chest 1V portable DATE OF EXAM: 12/06/2024 4:44 PM COMPARISON: Chest radiographs from CLINICAL INDICATION: Male, 79 years old with history of Small apical pneumothorax; [facility] TECHNIQUE: XR chest 1V portable Frontal view of the chest. FINDINGS: Cardiomegaly. Partial opacification of the right hemithorax, not significantly changed from same day prior study. Extensive pleural metastatic disease involving left lung apex and throughout the right lung again not ed. Right-sided pleural effusion stable from prior study. No significant change in right apical pneumothorax measuring approximately 1.9 cm from the pleural varghese rface. Apparent left-sided pneumothorax is likely related to artifact given either skin fold or devic e overlying the patient. Recommend clinical correlation. IMPRESSION: No significant interval changes from most recent same day prior study. Small right apical pneumothora x measuring approximate 1.9 cm and the pleural surface. [facility], , 12/06/2024 5:08 PM
[2024-12-06] MEDS: AMIODARONE 450 MG in DEXTROSE 5% IN WATER 250 ML IV SCH (17:34)
[2024-12-06] MEDS: LEVOFLOXACIN 750MG-D5W PMX 750 MG in DEXTROSE/WATER 1 150ML.BAG IVPB SCH (18:35)
--- NOTE | 2024-12-06 21:34 | OP ---
OPERATIVE REPORT DATE OF SERVICE : PROCEDURE PERFORMED: Right-sided thoracentesis. PREOPERATIVE DIAGNOSIS: Large right pleural effusion. POSTOPERATIVE DIAGNOSIS: Large right pleural effusion ANESTHESIA USED: 2 mL of 1% lidocaine. DESCRIPTION OF PROCEDURE: The patient was placed in the sitting upright position, the area below the right scapula at the level of the 8th intercostal space and tip of the scapula, was prepared in a sterile fashion. Drapes were applied. The area was locally anesthetized with lidocaine. Then, a small tiny incision was made and a standard 26-gauge needle inserted into the pleural space until fluid was localized and was noted to be bloody. Then, a small tiny incision made in the area and a standard thoracentesis catheter and needle advanced into the pleural space. As soon as the fluid was obtained, the catheter was advanced over the needle and the needle was pulled out of the pleural space. Freely flowing fluid was removed, 750 mL of serosanguineous pleural effusion was removed from the right pleural space, at the end of the procedure, I noted there was some air spurting into the collecting bottle, continued to have air until completely stopped. Then, a followup chest x-ray showed a small 10% right-sided pneumothorax. The plan was to leave it alone and repeat chest x-ray in 1 hour. The patient tolerated the procedure well, he may have developed a right-sided pneumothorax or maybe a trapped lung. Followup chest x-ray was ordered post thoracentesis and another one will be done 1 hour after. MMPAOLOL / IJN: [id number] /
--- NOTE | 2024-12-06 22:30 | P.CONS ---
History of Present Illness - Reason for Consult Consult date: 12/06/24 [place] lightchain multiple myeloma - Chief Complaint Weakness - History of Present Illness Mr. Flores is a 79-year-old gentleman with a history of high 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 who underwent induction with RVD on 12/20/2023 and completed 7 cycles on 06/08/2024 achieving very good partial response who was admitted from oncology clinic with failure to thrive. Since September 2024, he had been off of maintenance Revlimid for unclear reasons. This resulted in progressive weakness and dehydration to the point where he was no longer able to care for his sick . He had lost 22 pounds between September and November 2024. Labs at the beginning of November in 2024 noted significant increase in kappa light chain concerning for recurrent disease. In addition, he was noted to have mild confusion compared to baseline. Because of these concerns, he was advised to present to the ED for additional management. In the ED, he was hemodynamically stable and afebrile. He was placed on 2 L nasal cannula, but was noted to have oxygen saturation of 94% on room air. Labs revealed sodium 142, potassium 4, creatinine 1.40, calcium 10.5 (ionized calcium 5.4). CBC noted WBC 3.8, hemoglobin 9, platelets 134. Viral PCR along with urine Legionella antigen were negative. Troponin was negative. Chest x-ray noted patchy infiltrative opacities throughout the right lung along with small to moderate size right pleural effusion along with consolidation in the left apex. He was started on broad-spectrum antibiotics and was given bolus of IV fluids and admitted to medicine for additional management. He did have CTA of the chest to rule out pulmonary embolism that was negative for PE, but did note large right pleural effusion with soft tissue pleural metastatic deposits in the lungs bilaterally along with pleural metastatic disease in the left apex of the lung with involvement of the left first second and third ribs. In addition, there is noted to be peritoneal carcinomatosis with large soft tissue implant in the left retroperitoneum measuring 6.4 x 4.1 cm in addition to bilateral hydronephrosis and enlarged retroperitoneal lymphadenopathy. In addition, his hospital course was complicated by atrial fibrillation with RVR requiring amiodarone and therapeutic anticoagulation with heparin drip. He did undergo thoracentesis for the large right pleural effusion, removing 750 cc of serosanguineous pleural fluid. This was complicated by small right-sided pneumothorax. Review of Systems 14 point review of systems was conducted pertinent positives and negatives as noted per HPI Past Medical History Past Medical History: Cancer, Hyperlipidemia, Hypertension Additional Past Medical History / Comment(s): multiple myeloma History of Any Multi-Drug Resistant Organisms: None Reported Past Surgical History: Bowel Resection, Orthopedic Surgery Additional Past Surgical History / Comment(s): Broken arm that required surgery, colon resection Past Anesthesia/Blood Transfusion Reactions: No Reported Reaction Past Psychological History: No Psychological Hx Reported Smoking Status: Former smoker Past Alcohol Use History: None Reported Past Drug Use History: None Reported Medications and Allergies Home Medications Medication Instructions Recorded Confirmed Type Omeprazole 20 mg PO DAILY 11/06/23 12/05/24 History amLODIPine [Norvasc] 5 mg PO DAILY tab 11/13/23 12/05/24 Rx Aspirin 81 mg PO DAILY 03/09/24 12/05/24 History Docusate Sodium 250 mg PO DAILY 03/09/24 12/05/24 History Metoprolol Succinate (ER) [Toprol 25 mg PO DAILY 03/09/24 12/05/24 History Xl] clonazePAM [KlonoPIN] 0.5 mg PO HS 03/09/24 12/05/24 History Acetaminophen Tab [Tylenol Tab] 1,000 mg PO Q6H PRN 12/05/24 12/05/24 History Atorvastatin [Lipitor] 20 mg PO HS 12/05/24 12/05/24 History Calcium Citrate/Vitamin D3 1 tab PO DAILY 12/05/24 12/05/24 History [Calcium Cit 315-Vit D3 6.25 Mcg (250 Iu)] Diphenoxylate HCl/Atropine 1 tab PO QID PRN 12/05/24 12/05/24 History [Lomotil 2.5-0.025 mg Tablet] Loperamide [Imodium] 2 - 4 mg PO QID PRN 12/05/24 12/05/24 History Multivit-Min/FA/Lycopen/Lutein 1 tab PO DAILY 12/05/24 12/05/24 History [Centrum Silver Tablet] Naproxen Sodium [Aleve] 220 mg PO BID PRN 12/05/24 12/05/24 History Allergies Allergy/AdvReac Type Severity Reaction Status Date / Time No Known Allergies Allergy Verified 12/05/24 18:09 Physical Exam Vitals: Vital Signs Temp Pulse Pulse Resp BP BP Pulse Ox 12/06/24 20:00 98.2 F 88 22 125/55 95 12/06/24 15:31 80 22 126/51 96 12/06/24 12:39 98.1 F 99 20 107/59 97 12/06/24 09:15 137 H 29 H 109/58 94 L 12/06/24 09:00 149 H 30 H 115/61 94 L 12/06/24 08:45 135 H 35 H 81/63 96 12/06/24 08:30 130 H 34 H 84/54 94 L 12/06/24 08:15 129 H 35 H 109/61 92 L 12/06/24 08:00 98.1 F 114 H 32 H 118/86 95 12/06/24 07:45 133 H 26 H 116/71 94 L 12/06/24 07:33 126 H 33 H 12/06/24 07:08 98 F 111 H 20 110/60 96 12/06/24 01:17 97.9 F 100 16 145/66 94 L Intake and Output 12/06/24 12/06/24 12/06/24 06:59 14:59 22:59 Intake Total 250 25 212.272 Output Total 400 250 Balance -150 -225 212.272 Intake: IV 25 Piperacillin-Tazobactam 3 25 .375 gm In Sodium Chloride 0.9% 100 ml @ 200 mls/hr IVPB ONCE [facility] Rx#:[id number] Intake, IV Titration 250 94.272 Amount Heparin Sod,Pork in 0.45% 94.272 NaCl 25,000 unit In 0.45 % NaCl 1 250ml.bag @ 12 UNITS/KG/HR 9.906 mls/hr IV .Q24H [facility] Rx#: [id number] Levofloxacin 750Mg-D5w 150 Pmx 750 mg In Dextrose/ Water 1 150ml.bag @ 100 mls/hr IVPB Q24H [facility] Rx#: [id number] Piperacillin-Tazobactam 3 100 .375 gm In Sodium Chloride 0.9% 100 ml @ 25 mls/hr IVPB Q8H [facility] Rx#: [id number] Oral 118 Output: Urine 400 250 Other: Voiding Method External Catheter # Bowel Movements 1 Weight 82.554 kg - Constitutional General appearance: cooperative, no acute distress - EENT Eyes: EOMI - Respiratory Respiratory: right: diminished (Diminished breath sounds in the right lung base) - Cardiovascular Rhythm: irregularly irregular - Gastrointestinal General gastrointestinal: no distended, soft, no tenderness - Integumentary Integumentary: pale, no rash - Neurologic Neurologic: CNII-XII intact Results CBC & Chem 7: 12/06/24 08:36 12/06/24 10:00 Labs: Abnormal Lab Results - Last 24 Hours (Table) 12/06/24 12/06/24 12/06/24 Range/Units 04:32 08:36 08:36 RBC 2.67 L (4.30-5.90) m/uL Hgb 9.3 L (13.0-17.5) gm/dL Hct 27.4 L (39.0-53.0) % MCV 102.7 H (80.0-100.0) fL Plt Count 122 L (150-450) k/uL Lymphocytes # 0.9 L (1.0-4.8) k/uL PT 13.8 H (10.0-12.5) sec INR 1.3 H (<1.2) APTT 42.0 H (22.0-30.0) sec Chloride (98-107) mmol/L Carbon Dioxide 21.2 L (21.6-31.8) mmol/L Anion Gap 14.80 H (4.00-12.00) mmol/L BUN 31.9 H (9.0-27.0) mg/dL Creatinine (0.66-1.25) mg/dL Est GFR (CKD-EPI) 51 L (>=60) BUN/Creatinine Ratio 22.79 H (12.00-20.00) Ratio Glucose (74-99) mg/dL Total Protein (6.3-8.2) g/dL Albumin (3.5-5.0) g/dL 12/06/24 Range/Units 10:00 RBC (4.30-5.90) m/uL Hgb (13.0-17.5) gm/dL Hct (39.0-53.0) % MCV (80.0-100.0) fL Plt Count (150-450) k/uL Lymphocytes # (1.0-4.8) k/uL PT (10.0-12.5) sec INR (<1.2) APTT (22.0-30.0) sec Chloride 108 H (98-107) mmol/L Carbon Dioxide 21 L (21.6-31.8) mmol/L Anion Gap (4.00-12.00) mmol/L BUN 32 H (9.0-27.0) mg/dL Creatinine 1.41 H (0.66-1.25) mg/dL Est GFR (CKD-EPI) (>=60) BUN/Creatinine Ratio (12.00-20.00) Ratio Glucose 109 H (74-99) mg/dL Total Protein 5.7 L (6.3-8.2) g/dL Albumin 3.4 L (3.5-5.0) g/dL Assessment and Plan (1) Multiple myeloma in relapse Current Visit: Yes Status: Acute Code(s): C90.02 - MULTIPLE MYELOMA IN RELAPSE SNOMED Code(s): 598318719 (2) Hypercalcemia Current Visit: Yes Status: Acute Priority: High Code(s): E83.52 - HYPERCALCEMIA SNOMED Code(s): 26750502 Plan: #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 -Completed 7 cycles of RVD in May 2024 achieving very good partial response with 99% reduction in kappa light chain -Had been on maintenance Revlimid 10 mg daily, which he no longer took in September 2024 for unclear reasons -Subsequently, he developed progressive increase in kappa light chain accompanied with weakness, MICKEY, anemia, and thrombocytopenia concerning for relapsed disease -Clinically, he had failure to thrive with weakness, dehydration, and 22 pound weight loss prompting admission -CTA obtained to rule out PE revealed no evidence of PE, but noted pleural-based nodules with large right sided pleural effusion, peritoneal carcinomatosis, and retroperitoneal lymphadenopathy -Right-sided thoracentesis performed today yielded 720 cc of pleural fluid -Pleural fluid will be sent for cytology to confirm this is consistent with multiple myeloma as opposed to a separate primary malignancy -As long as there is no evidence of new primary malignancy, plan will be to treat with 1 cycle of CyBorD inpatient to achieve disease control -Once he is outpatient, he can be transition back to oral Revlimid as his initial disease responded very well to Revlimid and did not progress on this #Hypercalcemia -Noted to have calcium of 10.5 on admission -Due to relapsed multiple myeloma -Received IV fluids with no significant elevation in his calcium subsequently -For now, we will hold off on bisphosphonate and assess calcium daily -If he has progressive rise in calcium, bisphosphonate can be given #Atrial fibrillation with RVR -Currently on amiodarone and heparin drip -Management per primary and cardiology teams Pascual Broderick MD
[2024-12-07] MEDS: HEPARIN SODIUM 1,000 UN/ML (10ML VL) IV PRN (00:50)
[2024-12-07] MEDS: IPRATROPIUM-ALBUTEROL 3 ML NEB INHALATION PRN (01:50)
--- NOTE | 2024-12-07 02:14 | XR ---
EXAM: XR Chest, 1 View CLINICAL HISTORY: ITS.REASON XR Reason: respiratory distress TECHNIQUE: Frontal view of the chest. COMPARISON: CXR yesterday. FINDINGS: Lungs: Airspace consolidations in the lower lung henderson, preferentially involving the RIGHT lung. This may be secondary to atelectasis with possible superimposed pneumonia. Pleural space: Worsening RIGHT apical pneumothorax. Consider need for chest tube. Heart: Unremarkable. No cardiomegaly. Mediastinum: Unremarkable. Bones/joints: Small RIGHT effusion. IMPRESSION: 1. Worsening RIGHT apical pneumothorax. Consider need for chest tube. 2. Airspace consolidations in the lower lung henderson, preferentially involving the RIGHT lung. This may be secondary to atelectasis with possible superimposed pneumonia. <MYCVCSECTION> Communications: 12/07/24 02:35 Call Doctor Regarding Other, called [facility] [place] / Dr. Guallpa on 12/07 02:35 (-04:00)
[2024-12-07 02:22] LABS: Glucose,Whole Blood 126 mg/dL (70-110)
[2024-12-07 05:20] LABS: Glucose, BF Source Pleural Fluid; Glucose, Body Fluid 9 mg/dL
[2024-12-07 05:21] LABS: T. Protein, Body Fluid Source Pleural Fluid; Total Protein, Body Fluid >3600 mg/dL
[2024-12-07 05:32] LABS: LDH, Body Fluid Source Pleural fluid
[2024-12-07 07:19] LABS: Basophils % (A) 0 %; Eosinophils # (A) 0.1 k/uL (0-0.7); Eosinophils % (A) 1 %; HCT 28.1 % (39.0-53.0); HGB 8.8 gm/dL (13.0-17.5); Lymphocytes # (A) 0.7 k/uL (1.0-4.8); Lymphocytes % (A) 13 %; MCH 32.6 pg (25.0-35.0); MCHC 31.2 g/dL (31.0-37.0); MCV 104.5 fL (80.0-100.0); Macrocytosis Moderate; Mean Platelet Volume 9.3; Monocytes # (A) 0.6 k/uL (0-1.0); Monocytes % (A) 11 %; Neutrophils # (A) 3.5 k/uL (1.3-7.7); Neutrophils % (A) 70 %; Platelet Count 138 k/uL (150-450); RBC 2.69 m/uL (4.30-5.90); RDW 15.7 % (11.5-15.5); WBC 4.9 k/uL (3.8-10.6)
[2024-12-07 07:33] LABS: Prothrombin Time 11.1 sec (10.0-12.5)
--- NOTE | 2024-12-07 07:50 | XR ---
EXAMINATION TYPE: XR chest 1V portable DATE OF EXAM: 12/07/2024 5:40 AM COMPARISON: 12/07/2024 CLINICAL INDICATION: Male, 79 years old with history of right sided pneumothorax, TECHNIQUE: XR chest 1V portable views of the chest are obtained. FINDINGS: Demonstrated are scattered senescent parenchymal change. Large right sided pneumothorax is again noted estimated at greater than 50%. There is scattered infil trate throughout the left lung and basilar atelectasis seen bilaterally as well as right-sided pleura l effusion. The heart is stable. Hilar and mediastinal structures are within normal limits. Degenerative changes are seen of the dorsal spine. IMPRESSION: 1. Large right sided pneumothorax is again noted estimated at greater than 50%. There is scattered i nfiltrate throughout the left lung and basilar atelectasis seen bilaterally as well as right-sided pl eural effusion. A Red level critical message alert has been initiated for Frederick Guallpa MD via the [employer] System on 12/07/2024 7:47 AM. This message alert has been sent to Frederick Guallpa MD via t [facility] provided by the clinician for the receipt of Radiology Critical Findings. Message ID [id number]. [facility], , 12/07/2024 7:47 AM
[2024-12-07 08:00] LABS: African American GFR (CKD) 42 (>60 ml/min/1.73 sqM); Anion Gap 12 mmol/L; Blood Urea Nitrogen 33 mg/dL (9-20); Calcium 9.7 mg/dL (8.4-10.2); Carbon Dioxide 22 mmol/L (22-30); Chloride 109 mmol/L (98-107); Glucose 114 mg/dL (74-99); Non-African American GFR(CKD) 37 (>60 ml/min/1.73 sqM); Potassium 4.1 mmol/L (3.5-5.1); Sodium 143 mmol/L (137-145)
--- NOTE | 2024-12-07 08:42 | XR ---
EXAMINATION TYPE: XR chest 1V portable DATE OF EXAM: 12/07/2024 8:35 AM COMPARISON: None. CLINICAL INDICATION: Male, 79 years old with history of post thoravent placement, TECHNIQUE: XR chest 1V portable views of the chest are obtained. FINDINGS: Right-sided pleural catheter has been placed with no sizable pneumothorax appreciated on the right at this time. Scattered pleural parenchymal opacity in the right-sided effusion. There is no evidence for focal infiltrate. The heart is stable. Hilar and mediastinal structures are within normal limits. Degenerative changes are seen of the dorsal spine. IMPRESSION: 1. Right-sided pleural catheter has been placed with no sizable pneumothorax appreciated on the righ t at this time. Scattered pleural parenchymal opacity in the right-sided effusion. [facility], , 12/07/2024 8:40 AM
[2024-12-07] MEDS: APIXABAN 2.5 MG TABLET PO SCH (09:03)
[2024-12-07] MEDS: METOPROLOL SUCCINATE (ER) 50 MG TAB.ER.24H PO SCH (09:07)
[2024-12-07 10:52] LABS: Basophils % (A) 0 %; Eosinophils # (A) 0.1 k/uL (0-0.7); Eosinophils % (A) 2 %; HCT 25.3 % (39.0-53.0); HGB 8.5 gm/dL (13.0-17.5); Hypochromasia Slight; Lymphocytes # (A) 0.5 k/uL (1.0-4.8); Lymphocytes % (A) 11 %; MCH 34.1 pg (25.0-35.0); MCHC 33.5 g/dL (31.0-37.0); MCV 101.8 fL (80.0-100.0); Macrocytosis Slight; Mean Platelet Volume 10.3; Monocytes # (A) 0.4 k/uL (0-1.0); Monocytes % (A) 8 %; Neutrophils # (A) 3.3 k/uL (1.3-7.7); Neutrophils % (A) 74 %; Platelet Count 115 k/uL (150-450); RBC 2.49 m/uL (4.30-5.90); RDW 15.2 % (11.5-15.5); WBC 4.4 k/uL (3.8-10.6)
--- NOTE | 2024-12-07 10:53 | XR ---
EXAMINATION TYPE: XR chest 1V portable DATE OF EXAM: 12/07/2024 10:47 AM COMPARISON: 12/07/2024 CLINICAL INDICATION: Male, 79 years old with history of Pneumothorax, TECHNIQUE: XR chest 1V portable views of the chest are obtained. FINDINGS: Right-sided pleural catheter without sizable pneumothorax seen although the right lung apex is cut of f the [id number]. Small right-sided pleural effusion. There is no evidence for focal infiltrate. The heart is stable. Hilar and mediastinal structures are within normal limits. Degenerative changes are seen of the dorsal spine. IMPRESSION: 1. Right-sided pleural catheter without sizable pneumothorax seen although the right lung apex is cu t off the [id number]. [facility], , 12/07/2024 10:51 AM
--- NOTE | 2024-12-07 12:01 | P.PN ---
Subjective Progress Note Date: 12/07/24 Principal diagnosis: Acute hypoxic respiratory failure with large right-sided pleural effusion, multiple myeloma, Patient is a 79-year-old male with past medical history significant for hypertension, hyperlipidemia, KYM, multiple myeloma. His PCP is Dr. Jaimes. Also, follows with his oncologist Dr. Broderick. Patient had a bone marrow biopsy back on 11/11/2023 which was positive for multiple myeloma. Previously on systemic treatment, which he had stopped, apparently confused on whether he should continue the medication. Patient sent in by his oncologist yesterday for abnormal labs. On arrival, complaining of increased work of breathing over the last month. Occasional cough with mucus and occasional blood tinge. Workup in the ED including a chest CT angio which did not show any definite acute central pulmonary embolism, but technically limited due to suboptimal timing of contrast bolus. Overall, findings were consistent with disease progression. There was extensive soft tissue pleural metastatic deposits throughout bilateral lung henderson right greater than left. Extensive pleural metastatic disease in the left apex with involvement of the left first, second, and third ribs. Large right-sided pleural effusion and trace left-sided pleural effusion. Partially visualized upper abdomen demonstrating peritoneal carcinomatosis with large soft tissue implant in the left retroperitoneum measuring 6.4 x 4.1 cm. Bilateral hydronephrosis partially visualized. Enlarged retroperitoneal lymph node. Extensive osteolytic lesions throughout the visualized axial and appendicular skeleton compatible with osseous metastatic disease. CBC: WBC count 3.8, hemoglobin 9, platelets 134. CMP: Sodium 142, potassium 4, chloride 107, serum bicarb 21, BUN 40, creatinine 1.4, glucose 103. Lactic 1.2. Ionized calcium 5.4, magnesium 1.4, phosphorus 3.7. LFTs not elevated. Troponin 0.018. NT proBNP 1550. Viral screen negative for influenza, RSV, COVID. Patient currently being seen on the oncology floor. He is awake and alert, on 3 L/min nasal cannula, tachypneic in the mid 20s per minute. States he has been progressively more short of breath over the last month. States he uses 2 L supplemental oxygen hooked to his CPAP at bedtime. Denies chest pain, heart palpitations, lightheadedness or syncopal events, lower extremity edema. Does report occasional productive cough with brown mucus and occasional blood tinge. Denies any fevers, chills, chest pain, olivia hemoptysis. Denies known sick contacts. Appetite has been poor. Denies abdominal pain, nausea, vomiting, diarrhea, melena, hematochezia. Denies anticoagulant use. Denies history of previous thoracentesis. Patient was empirically covered on a combination of Zosyn and Levaquin in the ED. Current vital signs: Temperature 97.9 F, heart rate 100 bpm, blood pressure 145/66 mmHg, SpO2 recorded at 94% on 2 L/min nasal cannula. Patient was seen today on 12/07/2024, I had to move the patient earlier this morning to ICU as his right-sided pneumothorax showed some progression went from 10% to 30% overnight. Came into the ICU, and placed a Thora vent, 13 Yi in the right pleural space with complete resolution of his right-sided pneumothorax. And more bloody effusion was drained through the Thora vent shortly after the Thora vent was placed. Again there was complete resolution of his pneumothorax, and almost near complete resolution of his pleural effusion which was bloody all along. Patient is now on 4 L nasal cannula, in no distress, he is off heparin, and considering the bloody effusion, I will hold on anticoagulation therapy for now. Patient remains on amiodarone, bron chodilators/updrafts, he is also on Zosyn and Levaquin empirically. WBC count is 4.4 hemoglobin 8.5 electrolytes are normal BUN is 33 creatinine 1.74. The fluid I drained yesterday is clearly exudative with high LDH of 1400 and protein more than 3600 this is likely consistent with malignant pleural effusion most likely related to his multiple myeloma. Objective - Vital Signs Vital signs: Vital Signs Temp 98.5 F 12/07/24 08:00 Pulse 85 12/07/24 11:00 Resp 17 12/07/24 11:00 BP 121/56 12/07/24 11:00 Pulse Ox 96 12/07/24 11:00 FiO2 3 12/07/24 11:00 Intake & Output 12/06/24 12/07/24 12/07/24 18:59 06:59 18:59 Intake Total 237.272 78.013 850 Output Total 210 995 2715 Balance -12.728 -21.987 -150 Weight 82.554 kg 87.4 kg Intake: IV 25 Piperacillin-Tazobactam 3 25 .375 gm In Sodium Chloride 0.9% 100 ml @ 200 mls/hr IVPB ONCE STA Rx#:[id number] Intake, IV Titration 94.272 78.013 250 Amount Amiodarone 450 mg In 250 Dextrose 5% in Water 250 ml @ 0.5 MG/MIN 16.667 mls/hr IV .Q15H [facility] Rx#: [id number] Heparin Sod,Pork in 0.45% 94.272 78.013 NaCl 25,000 unit In 0.45 % NaCl 1 250ml.bag @ 12 UNITS/KG/HR 9.906 mls/hr IV .Q24H [facility] Rx#: [id number] Oral 118 600 Output: Chest Tube Drainage 800 Thora-Vent Right 800 Urine 250 100 200 Other: Voiding Method External Catheter External Catheter External Catheter # Bowel Movements 1 - Exam GENERAL EXAM: Revealed 79-year-old white male in no distress HEAD: Normocephalic and atraumatic EYES: Normal reaction of pupils, equal size. NOSE: Clear with pink turbinates. THROAT: No erythema or exudates. NECK: No masses, no JVD. CHEST: No chest wall deformity. Right-sided Thora vent is noted LUNGS: Right sided Thora vent is noted diminished breath sounds at the bases no rhonchi no wheezes CVS: S1 and S2 normal with no audible murmur, regular rhythm. No extra heart sounds ABDOMEN: No hepatosplenomegaly, active bowel sounds, no guarding or rigidity. SKIN: No rashes CENTRAL NERVOUS SYSTEM: Alert and oriented x 3 no gross focal deficit EXTREMITIES: No clubbing edema or cyanosis. - Labs CBC & Chem 7: 12/07/24 10:41 12/07/24 07:03 Labs: Abnormal Lab Results - Last 24 Hours (Table) 12/07/24 12/07/24 12/07/24 Range/Units 00:04 02:20 07:03 RBC 2.69 L (4.30-5.90) m/uL Hgb 8.8 L (13.0-17.5) gm/dL Hct 28.1 L (39.0-53.0) % MCV 104.5 H (80.0-100.0) fL RDW 15.7 H (11.5-15.5) % Plt Count 138 L (150-450) k/uL Lymphocytes # 0.7 L (1.0-4.8) k/uL APTT 30.6 H (22.0-30.0) sec Chloride (98-107) mmol/L BUN (9-20) mg/dL Creatinine (0.66-1.25) mg/dL Glucose (74-99) mg/dL POC Glucose (mg/dL) 126 H (70-110) mg/dL 12/07/24 12/07/24 Range/Units 07:03 10:41 RBC 2.49 L (4.30-5.90) m/uL Hgb 8.5 L (13.0-17.5) gm/dL Hct 25.3 L (39.0-53.0) % MCV 101.8 H (80.0-100.0) fL RDW (11.5-15.5) % Plt Count 115 L (150-450) k/uL Lymphocytes # 0.5 L (1.0-4.8) k/uL APTT (22.0-30.0) sec Chloride 109 H (98-107) mmol/L BUN 33 H (9-20) mg/dL Creatinine 1.74 H (0.66-1.25) mg/dL Glucose 114 H (74-99) mg/dL POC Glucose (mg/dL) (70-110) mg/dL Microbiology - Last 24 Hours (Table) 12/05/24 19:26 Blood Culture - Preliminary Blood Assessment and Plan Assessment: Impression: Acute hypoxemic respiratory failure, multifactorial Status post right-sided thoracentesis with right-sided iatrogenic pneumothorax requiring Thora vent placement Large right-sided pleural effusion, most likely malignant unless proven otherwi se Multiple myeloma, chest CT angio concerning for disease progression Acute kidney injury, with bilateral hydronephrosis Hypercalcemia, ionized calcium 5.4 Hypoma Chronic anemia Hypertension History of hyperlipidemia History of obstructive sleep apnea with CPAP Recommendation: Continue to monitor in the ICU Continue to hold anticoagulation therapy including heparin and Eliquis Continue Serevent to chest wall suction Monitor hemoglobin and transfuse for any hemoglobin below 7 Resume home meds Continue antibiotics empirically Patient is being followed by oncology for his multiple myeloma which has shown progression Will continue to follow Time with Patient: Less than 30
--- NOTE | 2024-12-07 12:06 | OP ---
OPERATIVE REPORT DATE OF SERVICE : PROCEDURE PERFORMED: Placement of a right-sided Thora-Vent, 13-[place]. PREOPERATIVE DIAGNOSIS: Iatrogenic right-sided pneumothorax. POSTOPERATIVE DIAGNOSIS: Iatrogenic right-sided pneumothorax. ANESTHESIA USED: 6 mL of 2% lidocaine. DESCRIPTION OF PROCEDURE: The patient was placed in a sitting upright position, the area of the right chest below the right clavicle and above the midportion of the chest was cleaned and prepared in a sterile fashion, and drapes were applied. The area of the intercostal space between the 3rd and 4th intercostal space was locally anesthetized, and the area was infiltrated with lidocaine, and I was able to insert the needle all the way into the chest and was able to retrieve air into the needle. Then, at that same site, a small tiny incision was made, and a standard 13-[place] Thora-Vent was used. It was inserted at the same site with the trocar in place, and advanced until the pleural space was entered, and movement of the diaphragm was noted on the Thora-Vent, then the catheter was advanced over the trocar, and the trocar was pulled out of the pleural space. The Thora-Vent was connected to Pleur-Evac at 20 cm water suction. There was definite air leak, and there was adequate placement of the right-sided Thora-Vent after a chest x- ray was done. It showed the Thora-Vent in the proper place, it also showed complete resolution of the right-sided pneumothorax on followup chest x-ray. The Thora-Vent was secured in place with a tape that is already present on the Thora-Vent, and the procedure was well tolerated, no complications. MMODL / IJN: [id number] /
--- NOTE | 2024-12-07 13:24 | P.PN ---
Subjective Progress Note Date: 12/07/24 patient is 79-year-old gentleman with past medical history significant for multiple myeloma, hypertension, hyperlipidemia presented to the ER because of abnormal labs. Patient normally sees Dr. Broderick and was on systemic treatment which apparently had stopped taking. Patient had blood work drawn outpatient and was told by the social and political studies professor to come to the ER. Patient states over the last couple of days he has been having increasing shortness of breath. Shortness of breath was present at rest as on exertion. Patient was complaining of being lethargic and weakness. Patient also complaining of productive cough with occasional episodes of hemoptysis. Denies any chest pain. There is no complaint of fever or chills. There is no complaint of orthopnea or PND. Patient denies any nausea, vomiting, pain. Patient denies any lightheaded or dizziness. Initial lab work done in the ER showed WBC 3.8, hemoglobin 9, platelet count 134 sodium 142, potassium 4, BUN 40, creatinine 1.40 glucose 103, lactate 1.2, calcium 10.5, magnesium 1.4 bilirubin 0.7, AST 27, ALT 11, troponin 0.018, proBNP 1550 Influenza A not detected Influenza B not detected RSV not detected COVID-19 not detected EKG done in the ER showed heart rate of , no ST segment elevation or depression seen, no T-wave inversions seen. Chest x-ray done in the ER showed patchy infiltrative opacity throughout the right lung with small to moderate size right pleural effusion. Questionable air-fluid level versus overlying skinfold is indeterminate for cavitary lesion or abscess. Recommend CT chest for further evaluation, consolidation in the left lung apex CT chest PE protocol done showed no definite acute PE within the vasculature, significant progression of metastatic disease with numerous pleural-based metastatic deposits and involvement of the left-sided ribs additionally there is peritoneal carcinomatosis in the partially visualized upper abdomen. Patient admitted to internal medicine service 12/07. Patient seen and examined. Status post right-sided thoracentesis with removal of 720 cc of fluid. Blood work done today showed WBC 4.9, hemoglobin 8.8, platelet count 138, sodium 143, potassium 4.1, BUN 33, creatinine 1.74, calcium 9.7 Patient had right-sided Thora vent placed this morning. Currently on 4 L of oxygen. REVIEW OF SYSTEMS: CONSTITUTIONAL: No fever, no malaise,. CARDIOVASCULAR: No chest pain, no palpitations, no syncope. PULMONARY: No shortness of breath, no cough, GASTROINTESTINAL: No diarrhea, no nausea, no vomiting, no abdominal pain. NEUROLOGICAL: No headaches, no weakness, PHYSICAL EXAMINATION: GENERAL: The patient is alert and oriented x3, ill looking HEENT: Pupils are round and equally reacting to light. EOMI. No scleral icterus. No conjunctival pallor. Normocephalic, atraumatic. No pharyngeal erythema. No thyromegaly. CARDIOVASCULAR: S1 and S2 present. No murmurs, rubs, or gallops. PULMONARY: Diminished breath sounds at the bases bilaterally, no wheezing or crackles. Right-sided Thora vent seen ABDOMEN: Soft, nontender, nondistended, normoactive bowel sounds. No palpable organomegaly. MUSCULOSKELETAL: No joint swelling or deformity. EXTREMITIES: No cyanosis, clubbing, or pedal edema. NEUROLOGICAL: Gross neurological examination did not reveal any focal deficits. SKIN: No rashes. Assessment and plan Hemoptysis Acute hypoxemic respiratory failure A-fib with RVR Right-sided pleural effusion Right-sided pneumothorax Bacterial pneumonia Multiple myeloma with disease progression Peritoneal carcinomatosis Acute kidney injury Hypomagnesemia Hypercalcemia Chronic anemia Hypertension History of hyperlipidemia History of KYM Monitor vital signs Monitor CBC Monitor CMP Continue telemetry monitoring Trend troponin Follow-up on blood cultures Follow-up on sputum culture Status post thoracentesis with removal of 720 cc of fluid Continue IV Zosyn and Levaquin Continue amiodarone drip Hold heparin for now Oncology following Cardiology following Pulmonology following Labs and medication were reviewed.. Continue same treatment. Continue with symptomatic treatment. Resume home medication. Monitor labs and vitals. DVT and GI prophylaxis. Further recommendations as per clinical course of the patient Dictation was produced using [employer] dictation software. please excuse any grammatical, word or spelling errors. Objective - Vital Signs Vital signs: Vital Signs Temp 98.9 F 12/07/24 02:30 Pulse 93 12/07/24 07:30 Resp 19 12/07/24 07:30 BP 143/59 12/07/24 07:15 Pulse Ox 95 12/07/24 09:09 FiO2 Intake & Output 12/06/24 12/07/24 12/07/24 18:59 06:59 18:59 Intake Total 237.272 78.013 250 Output Total 250 100 200 Balance -12.728 -21.987 50 Weight 82.554 kg 87.4 kg Intake: IV 25 Piperacillin-Tazobactam 3 25 .375 gm In Sodium Chloride 0.9% 100 ml @ 200 mls/hr IVPB ONCE STA Rx#:[id number] Intake, IV Titration 94.272 78.013 250 Amount Amiodarone 450 mg In 250 Dextrose 5% in Water 250 ml @ 0.5 MG/MIN 16.667 mls/hr IV .Q15H [facility] Rx#: [id number] Heparin Sod,Pork in 0.45% 94.272 78.013 NaCl 25,000 unit In 0.45 % NaCl 1 250ml.bag @ 12 UNITS/KG/HR 9.906 mls/hr IV .Q24H [facility] Rx#: [id number] Oral 118 Output: Urine 250 100 200 Other: Voiding Method External Catheter External Catheter # Bowel Movements 1 - Labs CBC & Chem 7: 12/07/24 10:41 12/07/24 07:03 Labs: Abnormal Lab Results - Last 24 Hours (Table) 12/06/24 12/07/24 12/07/24 Range/Units 10:00 00:04 02:20 RBC (4.30-5.90) m/uL Hgb (13.0-17.5) gm/dL Hct (39.0-53.0) % MCV (80.0-100.0) fL RDW (11.5-15.5) % Plt Count (150-450) k/uL Lymphocytes # (1.0-4.8) k/uL APTT 30.6 H (22.0-30.0) sec Chloride 108 H (98-107) mmol/L Carbon Dioxide 21 L (22-30) mmol/L BUN 32 H (9-20) mg/dL Creatinine 1.41 H (0.66-1.25) mg/dL Glucose 109 H (74-99) mg/dL POC Glucose (mg/dL) 126 H (70-110) mg/dL Total Protein 5.7 L (6.3-8.2) g/dL Albumin 3.4 L (3.5-5.0) g/dL 12/07/24 12/07/24 Range/Units 07:03 07:03 RBC 2.69 L (4.30-5.90) m/uL Hgb 8.8 L (13.0-17.5) gm/dL Hct 28.1 L (39.0-53.0) % MCV 104.5 H (80.0-100.0) fL RDW 15.7 H (11.5-15.5) % Plt Count 138 L (150-450) k/uL Lymphocytes # 0.7 L (1.0-4.8) k/uL APTT (22.0-30.0) sec Chloride 109 H (98-107) mmol/L Carbon Dioxide (22-30) mmol/L BUN 33 H (9-20) mg/dL Creatinine 1.74 H (0.66-1.25) mg/dL Glucose 114 H (74-99) mg/dL POC Glucose (mg/dL) (70-110) mg/dL Total Protein (6.3-8.2) g/dL Albumin (3.5-5.0) g/dL Microbiology - Last 24 Hours (Table) 12/05/24 19:26 Blood Culture - Preliminary Blood
[2024-12-07] MEDS: AMIODARONE 200 MG TAB PO SCH (15:06)
--- NOTE | 2024-12-07 16:21 | P.PN ---
Subjective Progress Note Date: 12/07/24 Principal diagnosis: Pleural effusion, MM In f/u today pt reports he is breathing ok, the chest tub is uncomfortable, denies fever, N, abd pain. Objective - Vital Signs Vital signs: Vital Signs Temp 98.5 F 12/07/24 08:00 Pulse 75 12/07/24 15:00 Resp 22 12/07/24 15:00 BP 123/54 12/07/24 15:00 Pulse Ox 95 12/07/24 15:00 FiO2 3 12/07/24 11:00 Intake & Output 12/06/24 12/07/24 12/07/24 18:59 06:59 18:59 Intake Total 237.272 78.013 850 Output Total 642 112 2179 Balance -12.728 -21.987 -350 Weight 82.554 kg 87.4 kg Intake: IV 25 Piperacillin-Tazobactam 3 25 .375 gm In Sodium Chloride 0.9% 100 ml @ 200 mls/hr IVPB ONCE STA Rx#:[id number] Intake, IV Titration 94.272 78.013 250 Amount Amiodarone 450 mg In 250 Dextrose 5% in Water 250 ml @ 0.5 MG/MIN 16.667 mls/hr IV .Q15H [facility] Rx#: [id number] Heparin Sod,Pork in 0.45% 94.272 78.013 NaCl 25,000 unit In 0.45 % NaCl 1 250ml.bag @ 12 UNITS/KG/HR 9.906 mls/hr IV .Q24H [facility] Rx#: [id number] Oral 118 600 Output: Chest Tube Drainage 800 Thora-Vent Right 800 Urine 250 100 400 Other: Voiding Method External Catheter External Catheter External Catheter # Bowel Movements 1 - Constitutional General appearance: Present: average body habitus, cooperative, no acute distress - EENT Eyes: Present: anicteric sclerae, EOMI ENT: Present: hearing grossly normal - Respiratory Details: mildly labored resp, rt lung diminished - Cardiovascular Rhythm: regular - Peripheral edema leg Peripheral Edema: bilateral: None - Gastrointestinal General gastrointestinal: Present: soft - Neurologic Neurologic: Present: CNII-XII intact - Musculoskeletal Musculoskeletal: Present: generalized weakness - Psychiatric Psychiatric: Present: A&O x's 3, appropriate affect, intact judgment & insight - Labs CBC & Chem 7: 12/07/24 10:41 12/07/24 07:03 Labs: Abnormal Lab Results - Last 24 Hours (Table) 12/07/24 12/07/24 12/07/24 Range/Units 00:04 02:20 07:03 RBC 2.69 L (4.30-5.90) m/uL Hgb 8.8 L (13.0-17.5) gm/dL Hct 28.1 L (39.0-53.0) % MCV 104.5 H (80.0-100.0) fL RDW 15.7 H (11.5-15.5) % Plt Count 138 L (150-450) k/uL Lymphocytes # 0.7 L (1.0-4.8) k/uL APTT 30.6 H (22.0-30.0) sec Chloride (98-107) mmol/L BUN (9-20) mg/dL Creatinine (0.66-1.25) mg/dL Glucose (74-99) mg/dL POC Glucose (mg/dL) 126 H (70-110) mg/dL 12/07/24 12/07/24 Range/Units 07:03 10:41 RBC 2.49 L (4.30-5.90) m/uL Hgb 8.5 L (13.0-17.5) gm/dL Hct 25.3 L (39.0-53.0) % MCV 101.8 H (80.0-100.0) fL RDW (11.5-15.5) % Plt Count 115 L (150-450) k/uL Lymphocytes # 0.5 L (1.0-4.8) k/uL APTT (22.0-30.0) sec Chloride 109 H (98-107) mmol/L BUN 33 H (9-20) mg/dL Creatinine 1.74 H (0.66-1.25) mg/dL Glucose 114 H (74-99) mg/dL POC Glucose (mg/dL) (70-110) mg/dL Microbiology - Last 24 Hours (Table) 12/06/24 15:30 Gram Stain - Preliminary Pleural Fluid 12/05/24 19:26 Blood Culture - Preliminary Blood - Imaging and Cardiology Chest x-ray: report reviewed Assessment and Plan (1) Hypercalcemia Current Visit: Yes Status: Acute Priority: High Code(s): E83.52 - HYPERCALCEMIA SNOMED Code(s): 80150699 (2) [place] light chain myeloma Current Visit: Yes Status: Acute Priority: High Code(s): C90.00 - MULTIPLE MYELOMA NOT HAVING ACHIEVED REMISSION SNOMED Code(s): 266024781 Plan: 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 -Completed 7 cycles of RVD in May 2024 achieving very good partial response with 99% reduction in kappa light chain -Had been on maintenance Revlimid 10 mg daily, which he stopped taking September 2024 for unclear reasons, he then developed progressive disease and symptoms of weakness, MICKEY, anemia, and thrombocytopenia -Admitted with failure to thrive with weakness, dehydration -CTA ruled out PE but reported pleural-based nodules with large right sided pleural effusion, peritoneal carcinomatosis, and retroperitoneal lymphadenopathy -720cc Right-sided thoracentesis performed, post procedure pneumo, thoravent placed. Resp status stable today -Pending cytology on pleural fluid -As long as there is no evidence of new primary malignancy, plan will be to tr eat with 1 cycle of CyBorD inpatient to achieve disease control -Once he is outpatient, he can be transition back to oral Revlimid as his initial disease responded very well to Revlimid and did not progress on this Hypercalcemia -Noted to have calcium of 10.5 on admission -Due to relapsed multiple myeloma -Received IV fluids with no significant elevation in his calcium subsequently -For now, we will hold off on bisphosphonate and assess calcium daily -If he has progressive rise in calcium, bisphosphonate can be given Atrial fibrillation with RVR -Currently on amiodarone and heparin drip, Cardiology following Doctor attests: I performed a history and physical examination of this patient, developed impression and plan of care. Discussed with dictator. I agree with dictators note, documented as a scribe.
[2024-12-07] MEDS: ZINC OXIDE PASTE (Z-GUARD) 1 APPLIC TOPICAL ONE ×2 (21:33→22:13)
[2024-12-08 05:37] LABS: Basophils % (A) 0 %; Eosinophils # (A) 0.2 k/uL (0-0.7); Eosinophils % (A) 4 %; HCT 23.1 % (39.0-53.0); HGB 7.7 gm/dL (13.0-17.5); Hypochromasia Slight; Lymphocytes # (A) 0.7 k/uL (1.0-4.8); Lymphocytes % (A) 15 %; MCHC 33.2 g/dL (31.0-37.0); MCV 102.3 fL (80.0-100.0); Macrocytosis Slight; Mean Platelet Volume 8.9; Monocytes # (A) 0.5 k/uL (0-1.0); Monocytes % (A) 10 %; Neutrophils # (A) 3.1 k/uL (1.3-7.7); Neutrophils % (A) 67 %; Platelet Count 121 k/uL (150-450); RBC 2.26 m/uL (4.30-5.90); RDW 15.4 % (11.5-15.5); WBC 4.7 k/uL (3.8-10.6)
[2024-12-08 05:56] LABS: ALT 8 U/L (4-49); AST 20 U/L (17-59); African American GFR (CKD) 38 (>60 ml/min/1.73 sqM); Albumin 3.1 g/dL (3.5-5.0); Alkaline Phosphatase 49 U/L (38-126); Anion Gap 10 mmol/L; Blood Urea Nitrogen 34 mg/dL (9-20); Calcium 9.8 mg/dL (8.4-10.2); Carbon Dioxide 22 mmol/L (22-30); Chloride 107 mmol/L (98-107); Glucose 97 mg/dL (74-99); Non-African American GFR(CKD) 32 (>60 ml/min/1.73 sqM); Potassium 3.8 mmol/L (3.5-5.1); Sodium 139 mmol/L (137-145); Total Bilirubin 0.5 mg/dL (0.2-1.3); Total Protein 5.2 g/dL (6.3-8.2)
[2024-12-08] MEDS ORDERED: Potassium Replacement Protocol 1 EACH MISC MISCELLANE PRN (06:49)
--- NOTE | 2024-12-08 08:28 | XR ---
EXAM: XR Chest, 1 View CLINICAL HISTORY: ITS.REASON XR Reason: thoravent TECHNIQUE: Frontal view of the chest. COMPARISON: X-ray dated 12/07/2024. FINDINGS: Lungs: Opacification of the right mid to lower lung. Pleural space: Small residual pneumothorax. Right-sided pleural effusion. Heart: Moderate enlargement of the cardiac silhouette. Mediastinum: Unremarkable. Normal mediastinal contour. Bones/joints: Unremarkable. No acute fracture. Vasculature: Calcifications overlie the aorta. Tubes, lines and devices: Interval placement of right-sided chest tube. IMPRESSION: 1. Interval placement of right-sided chest tube with a small residual pneumothorax. 2. Right-sided pleural effusion. 3. Right mid to lower lung pneumonia.
[2024-12-08] MEDS ORDERED: ZINC OXIDE PASTE (Z-GUARD) 1 APPLIC TOPICAL SCH (09:00)
[2024-12-08] MEDS: POTASSIUM CHLORIDE ER 20 MEQ TAB.ER PO SCH (09:38)
--- NOTE | 2024-12-08 09:44 | P.PN ---
Subjective Progress Note Date: 12/07/24 The patient is a 79-year-old male who is currently admitted to the hospital with shortness of breath. He was found to have a large sided pleural effusion, and ultimately underwent thoracentesis with Dr. Esqueda removing 750 mL. Small right pneumothorax thereafter and Pleurx catheter was placed. Cardiology has been consulted for atrial fibrillation. He was started on an amiodarone drip and subsequently beta-blockers once blood pressure was able to tolerate. He was started on low-dose anticoagulation after thoracentesis. Patient states he is breathing better today. He he is very fatigued and tired. No current chest discomfort. GENERAL: Well-appearing, well-nourished and in no acute distress. NECK: Supple without JVD or thyromegaly. LUNGS: Breath sounds diminished to auscultation bilaterally. Respiration equal and unlabored. No wheezes, rales or rhonchi. HEART: Irregular rate and rhythm without murmurs, rubs or gallops. S1 and S2 heard. EXTREMITIES: Normal range of motion, no edema. No clubbing or cyanosis. Peripheral pulses intact and strong. TELEMETRY: Rate controlled atrial fibrillation, heart rate in the 80s LABS: WBC 4.9, hemoglobin globin 8.8, hematocrit 28.1, sodium 138, potassium 4.1, sodium 143, BUN 33, creatinine 1.74 IMPRESSION: New onset of A-fib with RVR Acute hypoxic respiratory failure Large pleural effusion, right-sided, likely malignant Multiple myeloma Acute kidney injury Chronic anemia Hypertension Hypercalcemia PLAN: Transition to oral amiodarone Increase beta-roge to 50 mg daily Continue anticoagulation Further recommendations to be based upon clinical course I am dictating on behalf of Dr Neri Cox's history/physical and assessment/plan. Objective - Vital Signs Vital signs: Vital Signs Temp 98.9 F 12/07/24 02:30 Pulse 93 12/07/24 07:30 Resp 19 12/07/24 07:30 BP 143/59 12/07/24 07:15 Pulse Ox 95 12/07/24 09:09 FiO2 Intake & Output 12/06/24 12/07/24 12/07/24 18:59 06:59 18:59 Intake Total 237.272 78.013 250 Output Total 250 100 200 Balance -12.728 -21.987 50 Weight 82.554 kg 87.4 kg Intake: IV 25 Piperacillin-Tazobactam 3 25 .375 gm In Sodium Chloride 0.9% 100 ml @ 200 mls/hr IVPB ONCE STA Rx#:[id number] Intake, IV Titration 94.272 78.013 250 Amount Amiodarone 450 mg In 250 Dextrose 5% in Water 250 ml @ 0.5 MG/MIN 16.667 mls/hr IV .Q15H [facility] Rx#: [id number] Heparin Sod,Pork in 0.45% 94.272 78.013 NaCl 25,000 unit In 0.45 % NaCl 1 250ml.bag @ 12 UNITS/KG/HR 9.906 mls/hr IV .Q24H [facility] Rx#: [id number] Oral 118 Output: Urine 250 100 200 Other: Voiding Method External Catheter External Catheter # Bowel Movements 1 - Labs CBC & Chem 7: 12/08/24 05:21 12/08/24 05:21 Labs: Abnormal Lab Results - Last 24 Hours (Table) 12/06/24 12/07/24 12/07/24 Range/Units 10:00 00:04 02:20 RBC (4.30-5.90) m/uL Hgb (13.0-17.5) gm/dL Hct (39.0-53.0) % MCV (80.0-100.0) fL RDW (11.5-15.5) % Plt Count (150-450) k/uL Lymphocytes # (1.0-4.8) k/uL APTT 30.6 H (22.0-30.0) sec Chloride 108 H (98-107) mmol/L Carbon Dioxide 21 L (22-30) mmol/L BUN 32 H (9-20) mg/dL Creatinine 1.41 H (0.66-1.25) mg/dL Glucose 109 H (74-99) mg/dL POC Glucose (mg/dL) 126 H (70-110) mg/dL Total Protein 5.7 L (6.3-8.2) g/dL Albumin 3.4 L (3.5-5.0) g/dL 12/07/24 12/07/24 Range/Units 07:03 07:03 RBC 2.69 L (4.30-5.90) m/uL Hgb 8.8 L (13.0-17.5) gm/dL Hct 28.1 L (39.0-53.0) % MCV 104.5 H (80.0-100.0) fL RDW 15.7 H (11.5-15.5) % Plt Count 138 L (150-450) k/uL Lymphocytes # 0.7 L (1.0-4.8) k/uL APTT (22.0-30.0) sec Chloride 109 H (98-107) mmol/L Carbon Dioxide (22-30) mmol/L BUN 33 H (9-20) mg/dL Creatinine 1.74 H (0.66-1.25) mg/dL Glucose 114 H (74-99) mg/dL POC Glucose (mg/dL) (70-110) mg/dL Total Protein (6.3-8.2) g/dL Albumin (3.5-5.0) g/dL Microbiology - Last 24 Hours (Table) 12/05/24 19:26 Blood Culture - Preliminary Blood
--- NOTE | 2024-12-08 09:46 | P.PN ---
Subjective Progress Note Date: 12/08/24 The patient is a 79-year-old male who is currently admitted to the hospital with shortness of breath. Cardiology has been consulted for atrial fibrillation management. Patient has been found to have a large pleural effusion, where he underwent thoracentesis and Pleurx catheter placement. Patient has done well overnight. Patient denies any current complaints. Breathing is not currently labored. No chest discomfort. GENERAL: Well-appearing, well-nourished and in no acute distress. NECK: Supple without JVD or thyromegaly. LUNGS: Breath sounds diminished to auscultation bilaterally. Respiration equal and unlabored. No wheezes, rales or rhonchi. HEART: Irregular rate and rhythm without murmurs, rubs or gallops. S1 and S2 heard. EXTREMITIES: Normal range of motion, no edema. No clubbing or cyanosis. Peripheral pulses intact and strong. TELEMETRY: Rate controlled atrial fibrillation, heart rate in the 80-90's LABS: WBC 4.7, hemoglobin 7.7, hematocrit 23.1, platelet 121, sodium 139, potassium 3.8, BUN 34, creatinine 1.92, AST 20, ALT 8 IMPRESSION: New onset of A-fib with RVR Acute hypoxic respiratory failure Large pleural effusion, right-sided, likely malignant Multiple myeloma Acute kidney injury Chronic anemia Hypertension Hypercalcemia PLAN: Continue oral amiodarone Maximize beta-roge if needed in the future to maintain rate control No further recommendations from the cardiac standpoint I am dictating on behalf of Dr Neri Cox's history/physical and assessment/plan. Objective - Vital Signs Vital signs: Vital Signs Temp 98.9 F 12/08/24 04:00 Pulse 90 12/08/24 07:00 Resp 21 12/08/24 07:00 BP 122/61 12/08/24 07:00 Pulse Ox 96 12/08/24 07:00 FiO2 3 12/07/24 11:00 Intake & Output 12/07/24 12/08/24 12/08/24 18:59 06:59 18:59 Intake Total 850 1300 Output Total 1300 800 Balance -450 500 Weight 47 kg Intake: Intake, IV Titration 250 Amount Amiodarone 450 mg In 250 Dextrose 5% in Water 250 ml @ 0.5 MG/MIN 16.667 mls/hr IV .Q15H [facility] Rx#: [id number] Oral 600 1300 Output: Chest Tube Drainage 900 600 Thora-Vent Right 900 600 Urine 400 200 Other: Voiding Method External Catheter External Catheter # Bowel Movements 1 1 1 - Labs CBC & Chem 7: 12/08/24 05:21 12/08/24 05:21 Labs: Abnormal Lab Results - Last 24 Hours (Table) 12/07/24 12/08/24 12/08/24 Range/Units 10:41 05:21 05:21 RBC 2.49 L 2.26 L (4.30-5.90) m/uL Hgb 8.5 L 7.7 L (13.0-17.5) gm/dL Hct 25.3 L 23.1 L (39.0-53.0) % MCV 101.8 H 102.3 H (80.0-100.0) fL Plt Count 115 L 121 L (150-450) k/uL Lymphocytes # 0.5 L 0.7 L (1.0-4.8) k/uL BUN 34 H (9-20) mg/dL Creatinine 1.92 H (0.66-1.25) mg/dL Total Protein 5.2 L (6.3-8.2) g/dL Albumin 3.1 L (3.5-5.0) g/dL Microbiology - Last 24 Hours (Table) 12/05/24 19:26 Blood Culture - Preliminary Blood 12/06/24 15:30 Acid Fast Bacilli Smear - Preliminary Pleural Fluid 12/06/24 15:30 Gram Stain - Preliminary Pleural Fluid Body Fluid Culture - Preliminary
--- NOTE | 2024-12-08 12:51 | P.PN ---
Subjective Progress Note Date: 12/08/24 patient is 79-year-old gentleman with past medical history significant for multiple myeloma, hypertension, hyperlipidemia presented to the ER because of abnormal labs. Patient normally sees Dr. Broderick and was on systemic treatment which apparently had stopped taking. Patient had blood work drawn outpatient and was told by the converting technician to come to the ER. Patient states over the last couple of days he has been having increasing shortness of breath. Shortness of breath was present at rest as on exertion. Patient was complaining of being lethargic and weakness. Patient also complaining of productive cough with occasional episodes of hemoptysis. Denies any chest pain. There is no complaint of fever or chills. There is no complaint of orthopnea or PND. Patient denies any nausea, vomiting, pain. Patient denies any lightheaded or dizziness. Initial lab work done in the ER showed WBC 3.8, hemoglobin 9, platelet count 134 sodium 142, potassium 4, BUN 40, creatinine 1.40 glucose 103, lactate 1.2, calcium 10.5, magnesium 1.4 bilirubin 0.7, AST 27, ALT 11, troponin 0.018, proBNP 1550 Influenza A not detected Influenza B not detected RSV not detected COVID-19 not detected EKG done in the ER showed heart rate of , no ST segment elevation or depression seen, no T-wave inversions seen. Chest x-ray done in the ER showed patchy infiltrative opacity throughout the right lung with small to moderate size right pleural effusion. Questionable air-fluid level versus overlying skinfold is indeterminate for cavitary lesion or abscess. Recommend CT chest for further evaluation, consolidation in the left lung apex CT chest PE protocol done showed no definite acute PE within the vasculature, significant progression of metastatic disease with numerous pleural-based metastatic deposits and involvement of the left-sided ribs additionally there is peritoneal carcinomatosis in the partially visualized upper abdomen. Patient admitted to internal medicine service 12/07. Patient seen and examined. Status post right-sided thoracentesis with removal of 720 cc of fluid. Blood work done today showed WBC 4.9, hemoglobin 8.8, platelet count 138, sodium 143, potassium 4.1, BUN 33, creatinine 1.74, calcium 9.7 Patient had right-sided Thora vent placed this morning. Currently on 4 L of oxygen. 12/08. Patient seen and examined. Vital signs done this morning showedTemp 98, heart rate 98, respirations 30, blood pressure 125/84, currently on 2 L of oxygen. Denies any shortness of breath at rest. Currently has a Thora vent in place. Chest x-ray done this morning shows right-sided pleural effusion, right- sided chest tube in place with residual pneumothorax. REVIEW OF SYSTEMS: CONSTITUTIONAL: No fever, no malaise,. CARDIOVASCULAR: No chest pain, no palpitations, no syncope. PULMONARY: No shortness of breath, no cough, GASTROINTESTINAL: No diarrhea, no nausea, no vomiting, no abdominal pain. NEUROLOGICAL: No headaches, no weakness, PHYSICAL EXAMINATION: GENERAL: The patient is alert and oriented x3, ill looking HEENT: Pupils are round and equally reacting to light. EOMI. No scleral icterus. No conjunctival pallor. Normocephalic, atraumatic. No pharyngeal erythema. No thyromegaly. CARDIOVASCULAR: S1 and S2 present. No murmurs, rubs, or gallops. PULMONARY: Diminished breath sounds at the bases bilaterally, no wheezing or crackles. Right-sided Thora vent seen ABDOMEN: Soft, nontender, nondistended, normoactive bowel sounds. No palpable organomegaly. MUSCULOSKELETAL: No joint swelling or deformity. EXTREMITIES: No cyanosis, clubbing, or pedal edema. NEUROLOGICAL: Gross neurological examination did not reveal any focal deficits. SKIN: No rashes. Assessment and plan Hemoptysis Acute hypoxemic respiratory failure A-fib with RVR Right-sided pleural effusion Right-sided pneumothorax Bacterial pneumonia Multiple myeloma with disease progression Peritoneal carcinomatosis Acute kidney injury Hypomagnesemia Hypercalcemia Chronic anemia Hypertension History of hyperlipidemia History of KYM Monitor vital signs Monitor CBC Monitor CMP Continue telemetry monitoring Trend troponin Follow-up on blood cultures Follow-up on sputum culture Status post thoracentesis with removal of 720 cc of fluid Continue IV Zosyn Continue amiodarone 200 mg twice daily and Eliquis Oncology following Cardiology following Pulmonology following Labs and medication were reviewed.. Continue same treatment. Continue with symptomatic treatment. Resume home medication. Monitor labs and vitals. DVT and GI prophylaxis. Further recommendations as per clinical course of the patient Dictation was produced using Getting-[employer] dictation software. please excuse any grammatical, word or spelling errors. Objective - Vital Signs Vital signs: Vital Signs Temp 98 F 12/08/24 08:00 Pulse 98 12/08/24 10:00 Resp 19 12/08/24 10:00 BP 117/61 12/08/24 09:00 Pulse Ox 96 12/08/24 10:00 FiO2 3 12/07/24 11:00 Intake & Output 12/07/24 12/08/24 12/08/24 18:59 06:59 18:59 Intake Total 850 1300 225 Output Total 1300 800 Balance -450 500 225 Weight 47 kg Intake: IV 225 0.9 225 Intake, IV Titration 250 Amount Amiodarone 450 mg In 250 Dextrose 5% in Water 250 ml @ 0.5 MG/MIN 16.667 mls/hr IV .Q15H [facility] Rx#: [id number] Oral 600 1300 Output: Chest Tube Drainage 900 600 Thora-Vent Right 900 600 Urine 400 200 Other: Voiding Method External Catheter External Catheter External Catheter # Bowel Movements 1 1 1 - Labs CBC & Chem 7: 12/08/24 05:21 12/08/24 05:21 Labs: Abnormal Lab Results - Last 24 Hours (Table) 12/08/24 12/08/24 Range/Units 05:21 05:21 RBC 2.26 L (4.30-5.90) m/uL Hgb 7.7 L (13.0-17.5) gm/dL Hct 23.1 L (39.0-53.0) % MCV 102.3 H (80.0-100.0) fL Plt Count 121 L (150-450) k/uL Lymphocytes # 0.7 L (1.0-4.8) k/uL BUN 34 H (9-20) mg/dL Creatinine 1.92 H (0.66-1.25) mg/dL Total Protein 5.2 L (6.3-8.2) g/dL Albumin 3.1 L (3.5-5.0) g/dL Microbiology - Last 24 Hours (Table) 12/05/24 19:26 Blood Culture - Preliminary Blood 12/06/24 15:30 Acid Fast Bacilli Smear - Preliminary Pleural Fluid 12/06/24 15:30 Gram Stain - Preliminary Pleural Fluid Body Fluid Culture - Preliminary
--- NOTE | 2024-12-08 13:15 | P.PN ---
Subjective Progress Note Date: 12/08/24 Principal diagnosis: Acute hypoxic respiratory failure with large right-sided pleural effusion, multiple myeloma, Patient is a 79-year-old male with past medical history significant for hypertension, hyperlipidemia, KYM, multiple myeloma. His PCP is Dr. Jaimes. Also, follows with his oncologist Dr. Broderick. Patient had a bone marrow biopsy back on 11/11/2023 which was positive for multiple myeloma. Previously on systemic treatment, which he had stopped, apparently confused on whether he should continue the medication. Patient sent in by his oncologist yesterday for abnormal labs. On arrival, complaining of increased work of breathing over the last month. Occasional cough with mucus and occasional blood tinge. Workup in the ED including a chest CT angio which did not show any definite acute central pulmonary embolism, but technically limited due to suboptimal timing of contrast bolus. Overall, findings were consistent with disease progression. There was extensive soft tissue pleural metastatic deposits throughout bilateral lung henderson right greater than left. Extensive pleural metastatic disease in the left apex with involvement of the left first, second, and third ribs. Large right-sided pleural effusion and trace left-sided pleural effusion. Partially visualized upper abdomen demonstrating peritoneal carcinomatosis with large soft tissue implant in the left retroperitoneum measuring 6.4 x 4.1 cm. Bilateral hydronephrosis partially visualized. Enlarged retroperitoneal lymph node. Extensive osteolytic lesions throughout the visualized axial and appendicular skeleton compatible with osseous metastatic disease. CBC: WBC count 3.8, hemoglobin 9, platelets 134. CMP: Sodium 142, potassium 4, chloride 107, serum bicarb 21, BUN 40, creatinine 1.4, glucose 103. Lactic 1.2. Ionized calcium 5.4, magnesium 1.4, phosphorus 3.7. LFTs not elevated. Troponin 0.018. NT proBNP 1550. Viral screen negative for influenza, RSV, COVID. Patient currently being seen on the oncology floor. He is awake and alert, on 3 L/min nasal cannula, tachypneic in the mid 20s per minute. States he has been progressively more short of breath over the last month. States he uses 2 L supplemental oxygen hooked to his CPAP at bedtime. Denies chest pain, heart palpitations, lightheadedness or syncopal events, lower extremity edema. Does report occasional productive cough with brown mucus and occasional blood tinge. Denies any fevers, chills, chest pain, olivia hemoptysis. Denies known sick contacts. Appetite has been poor. Denies abdominal pain, nausea, vomiting, diarrhea, melena, hematochezia. Denies anticoagulant use. Denies history of previous thoracentesis. Patient was empirically covered on a combination of Zosyn and Levaquin in the ED. Current vital signs: Temperature 97.9 F, heart rate 100 bpm, blood pressure 145/66 mmHg, SpO2 recorded at 94% on 2 L/min nasal cannula. Patient was seen today on 12/07/2024, I had to move the patient earlier this morning to ICU as his right-sided pneumothorax showed some progression went from 10% to 30% overnight. Came into the ICU, and placed a Thora vent, 13 [place] in the right pleural space with complete resolution of his right-sided pneumothorax. And more bloody effusion was drained through the Thora vent shortly after the Thora vent was placed. Again there was complete resolution of his pneumothorax, and almost near complete resolution of his pleural effusion which was bloody all along. Patient is now on 4 L nasal cannula, in no distress, he is off heparin, and considering the bloody effusion, I will hold on anticoagulation therapy for now. Patient remains on amiodarone, bron chodilators/updrafts, he is also on Zosyn and Levaquin empirically. WBC count is 4.4 hemoglobin 8.5 electrolytes are normal BUN is 33 creatinine 1.74. The fluid I drained yesterday is clearly exudative with high LDH of 1400 and protein more than 3600 this is likely consistent with malignant pleural effusion most likely related to his multiple myeloma. Patient was seen today on 12/08/2024, remains in the ICU, continues to have Thora vent in place, patient had over 1200 cc of bloody effusion drained over the last 24 hours, and prior to this I have drained over 700 cc initially and the fluid was also bloody. This is most likely a pleural effusion related to multiple myeloma, cytology is pending. Patient remains empirically on antibiotics, however I went ahead and discontinued Levaquin on this patient, and I kept him on Zosyn as he seems to be developing some worsening of his renal status, patient is clinically dry dehydrated, and I am recommending increase of his IV fluid. Hemoglobin is 7.7 WBC count is 4.7 electrolytes are normal however creatinine went up to 1.92 from 1.74 yesterday, baseline on admission was 1.40. Patient remains off heparin mostly because of his bloody effusion, patient is on 3 L nasal cannula with O2 sats of 96%. Chest x-ray today was reviewed, I did not truly appreciate a pneumothorax on the chest x-ray today, and hardly any air leak is noted. Objective - Vital Signs Vital signs: Vital Signs Temp 98 F 12/08/24 08:00 Pulse 98 12/08/24 10:00 Resp 19 12/08/24 10:00 BP 117/61 12/08/24 09:00 Pulse Ox 96 12/08/24 10:00 FiO2 3 12/07/24 11:00 Intake & Output 12/07/24 12/08/24 12/08/24 18:59 06:59 18:59 Intake Total 850 1300 225 Output Total 1300 800 Balance -450 500 225 Weight 47 kg Intake: IV 225 0.9 225 Intake, IV Titration 250 Amount Amiodarone 450 mg In 250 Dextrose 5% in Water 250 ml @ 0.5 MG/MIN 16.667 mls/hr IV .Q15H [facility] Rx#: [id number] Oral 600 1300 Output: Chest Tube Drainage 900 600 Thora-Vent Right 900 600 Urine 400 200 Other: Voiding Method External Catheter External Catheter External Catheter # Bowel Movements 1 1 1 - Exam GENERAL EXAM: Revealed 79-year-old white male in no distress, on 3 L nasal cannula looks frail, and chronically ill. HEAD: Normocephalic and atraumatic, EYES: Normal reaction of pupils, equal size. NOSE: Clear with pink turbinates. THROAT: No erythema or exudates. NECK: No masses, no JVD. CHEST: No chest wall deformity. Right-sided Thora vent is noted LUNGS: Right sided Thora vent is noted clear bilaterally no rhonchi no wheezes CVS: S1 and S2 normal with no audible murmur, regular rhythm. No extra heart sounds ABDOMEN: No hepatosplenomegaly, active bowel sounds, no guarding or rigidity. SKIN: No rashes CENTRAL NERVOUS SYSTEM: Alert and oriented x 3 no gross focal deficit EXTREMITIES: No clubbing edema or cyanosis. - Labs CBC & Chem 7: 12/08/24 05:21 12/08/24 05:21 Labs: Abnormal Lab Results - Last 24 Hours (Table) 12/08/24 12/08/24 Range/Units 05:21 05:21 RBC 2.26 L (4.30-5.90) m/uL Hgb 7.7 L (13.0-17.5) gm/dL Hct 23.1 L (39.0-53.0) % MCV 102.3 H (80.0-100.0) fL Plt Count 121 L (150-450) k/uL Lymphocytes # 0.7 L (1.0-4.8) k/uL BUN 34 H (9-20) mg/dL Creatinine 1.92 H (0.66-1.25) mg/dL Total Protein 5.2 L (6.3-8.2) g/dL Albumin 3.1 L (3.5-5.0) g/dL Microbiology - Last 24 Hours (Table) 12/05/24 19:26 Blood Culture - Preliminary Blood 12/06/24 15:30 Acid Fast Bacilli Smear - Preliminary Pleural Fluid 12/06/24 15:30 Gram Stain - Preliminary Pleural Fluid Body Fluid Culture - Preliminary Assessment and Plan Assessment: Impression: Acute hypoxemic respiratory failure, multifactorial Status post right-sided thoracentesis with right-sided iatrogenic pneumothorax requiring Thora vent placement Large right-sided pleural effusion, bloody and most likely malignant unless proven otherwise, fluid was noted to be exudative with a relatively high protein and very high LDH. Most likely secondary to multiple myeloma. Multiple myeloma, chest CT angio concerning for disease progression Acute kidney injury, with bilateral hydronephrosis, noted on CT of the chest, will check ultrasound for hydronephrosis Hypercalcemia, ionized calcium 5.4 Chronic anemia Hypertension History of hyperlipidemia History of obstructive sleep apnea with CPAP Recommendation: Continue with thoravent/ Pleur-evac on wall suction Continue to monitor in the ICU Continue to hold anticoagulation therapy including heparin and Eliquis Monitor hemoglobin and transfuse for any hemoglobin below 7 Resume home meds Continue antibiotics empirically, however will discontinue Levaquin and continue Zosyn considering the patient is on amiodarone, and considering the patient is developing worsening renal status. Patient is being followed by oncology for his multiple myeloma which has shown progression Prognosis remains very poor and guarded. Will continue to follow Time with Patient: Greater than 30
--- NOTE | 2024-12-08 13:28 | P.PN ---
Subjective Progress Note Date: 12/08/24 Seen in ICU today in f/u. Thoravent stil in place. Pt denies pain, reports breathing has improved. Wbc 4.7, hgb 7.7, plt 121 Objective - Vital Signs Vital signs: Vital Signs Temp 98 F 12/08/24 08:00 Pulse 98 12/08/24 10:00 Resp 19 12/08/24 10:00 BP 117/61 12/08/24 09:00 Pulse Ox 96 12/08/24 10:00 FiO2 3 12/07/24 11:00 Intake & Output 12/07/24 12/08/24 12/08/24 18:59 06:59 18:59 Intake Total 850 1300 225 Output Total 1300 800 Balance -450 500 225 Weight 47 kg Intake: IV 225 0.9 225 Intake, IV Titration 250 Amount Amiodarone 450 mg In 250 Dextrose 5% in Water 250 ml @ 0.5 MG/MIN 16.667 mls/hr IV .Q15H [facility] Rx#: [id number] Oral 600 1300 Output: Chest Tube Drainage 900 600 Thora-Vent Right 900 600 Urine 400 200 Other: Voiding Method External Catheter External Catheter External Catheter # Bowel Movements 1 1 1 - Constitutional General appearance: Present: no acute distress - EENT Eyes: Present: anicteric sclerae, EOMI ENT: Present: hearing grossly normal - Respiratory Details: breathing is even and unlabored - Cardiovascular Details: skin warm and dry - Integumentary Integumentary: Absent: cyanotic - Psychiatric Psychiatric: Present: A&O x's 3 - Labs CBC & Chem 7: 12/08/24 05:21 12/08/24 05:21 Labs: Abnormal Lab Results - Last 24 Hours (Table) 12/08/24 12/08/24 Range/Units 05:21 05:21 RBC 2.26 L (4.30-5.90) m/uL Hgb 7.7 L (13.0-17.5) gm/dL Hct 23.1 L (39.0-53.0) % MCV 102.3 H (80.0-100.0) fL Plt Count 121 L (150-450) k/uL Lymphocytes # 0.7 L (1.0-4.8) k/uL BUN 34 H (9-20) mg/dL Creatinine 1.92 H (0.66-1.25) mg/dL Total Protein 5.2 L (6.3-8.2) g/dL Albumin 3.1 L (3.5-5.0) g/dL Microbiology - Last 24 Hours (Table) 12/05/24 19:26 Blood Culture - Preliminary Blood 12/06/24 15:30 Acid Fast Bacilli Smear - Preliminary Pleural Fluid 12/06/24 15:30 Gram Stain - Preliminary Pleural Fluid Body Fluid Culture - Preliminary Assessment and Plan (1) Hypercalcemia Current Visit: Yes Status: Acute Priority: High Code(s): E83.52 - HYPERCALCEMIA SNOMED Code(s): 96475563 (2) [place] light chain myeloma Current Visit: Yes Status: Acute Priority: High Code(s): C90.00 - MULTIPLE MYELOMA NOT HAVING ACHIEVED REMISSION SNOMED Code(s): 444454793 (3) New onset atrial fibrillation Current Visit: Yes Status: Acute Code(s): I48.91 - UNSPECIFIED ATRIAL FIBRILLATION SNOMED Code(s): 90746935 Plan: 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 -Completed 7 cycles of RVD in May 2024 achieving very good partial response with 99% reduction in kappa light chain -Had been on maintenance Revlimid 10 mg daily, which he stopped taking September 2024 for unclear reasons, he then developed progressive disease and symptoms of weakness, MICKEY, anemia, and thrombocytopenia -Admitted with failure to thrive with weakness, dehydration -CTA ruled out PE but reported pleural-based nodules with large right sided pleural effusion, peritoneal carcinomatosis, and retroperitoneal lymphadenopathy -720cc Right-sided thoracentesis performed, post procedure pneumo, thoravent placed. Resp status improving -Pending cytology on pleural fluid -As long as there is no evidence of new primary malignancy, plan will be to treat with 1 cycle of CyBorD inpatient to achieve disease control -Once he is outpatient, he can be transitioned back to oral Revlimid as his initial disease responded very well to Revlimid and did not progress on this Hypercalcemia -Noted to have calcium of 10.5 on admission -Due to relapsed multiple myeloma -Received IV fluids with no significant elevation in his calcium subsequently -For now, we will hold off on bisphosphonate and assess calcium daily -If he has progressive rise in calcium, bisphosphonate can be given Atrial fibrillation with RVR -Currently on amiodarone and eliquis, Cardiology following
--- NOTE | 2024-12-08 15:28 | CDI ---
Documentation Clarification Form Date: 12/08/2024 03:06:37 PM From: Sigrid Stark RN CCDS Phone: [phone] Admit Date: 12/05/2024 06:47:00 PM Patient Name: Azeem Flores Visit Number: [id number] Discharge Date: ATTENTION: The Clinical Documentation Specialists (CDI) and [facility] Coding Staff appreciate your assistance in clarifying documentation. Please respond to the clarification below the line at the bottom and electronically sign. The CDI & [facility] Coding staff will review the response and follow-up if needed. Please note: Queries are made part of the Legal Health Record. If you have any questions, please contact the author of this message via ITS. Doctor: Reynaldo De MD Bacterial Pneumonia is documented Medicine note, 12/08 which may lack sufficient clinical evidence/support in the medical record. Additional clarification is requested. History/Risk Factors: 79 y/o male presents to the ED for abnormal labs, sent in by Stogy Roller. The patient has had increasing shortness of breath at rest and on exertion. The patient is also complaining of productive cough with occasional episodes of hemoptysis. Medical History: Multiple myeloma with disease progression, chronic anemia, HLD and KYM. 12/06, HP. Clinical Indicators: 12/08, Pulmonary note: Continue antibiotics empirically, however will discontinue Levaquin and continue Zosyn considering the patient is on amiodarone, and considering the patient is developing worsening renal status. 12/05, CXR: Patchy infiltrative opacities throughout the right lung with small to moderate sized right pleural effusion. Consolidation in the left lung apex 12/05, CT Angio Chest: Significant progression of metastatic disease with numerous pleural-based metastatic deposits and involvement of the left-sided ribs.Additionally, there is peritoneal carcinomatosis in the partially visualized upper abdomen. Moderate to large right pleural effusion.Trace left pleural effusion. Treatment: 12/05 Levofloxacin IVPB x 1; 12/05 Zosyn IVPB; 12/06 Levofloxacin IVPB x 1; 12/06 Zosyn IVPB Q8H. 12/06 Right sided thoracentesis Please clarify if Bacterial Pneumonia is a valid diagnosis? [ x] No, Bacterial Pneumonia is ruled out [ ] Yes, Bacterial Pneumonia is present as evidence by (additional clinical support): [ ] Other (please specify diagnosis) [ ] Unable to determine (Template Last Revised: February 2024) MTDD
--- NOTE | 2024-12-08 15:32 | US ---
EXAMINATION TYPE: US renals and bladder DATE OF EXAM: 12/08/2024 COMPARISON: NONE CLINICAL INDICATION: Male, 79 years old with history of hydronephrosis; hydronephrosis TECHNIQUE: Grayscale imaging of the bilateral kidneys and urinary bladder: FINDINGS: EXAM MEASUREMENTS: Right Kidney: 10.8 x 5.4 x 5.3 cm Left Kidney: 10 x 5.2 x 3.4 cm Right Kidney: cystic area seen measuring 3.5 x 1.9 x 3.4 cm Left Kidney: Limited due to bowel gas Bladder: Cathter in. There is no evidence for hydronephrosis at this point in time. No nephrolithiasis is seen. No solid masses are identified. The urinary bladder is anechoic. IMPRESSION: Simple cyst right kidney. [facility], , 12/08/2024 3:30 PM
[2024-12-08] MEDS ORDERED: LEVOFLOXACIN 750MG-D5W PMX 750 MG in DEXTROSE/WATER 1 150ML.BAG IVPB SCH (18:00)
[2024-12-09] MEDS: QUEtiapine 25 MG TAB PO PRN (04:38)
--- NOTE | 2024-12-09 06:14 | XR ---
EXAMINATION TYPE: XR chest 1V DATE OF EXAM: 12/09/2024 CLINICAL INDICATION: Male, 79 years old with history of thoravent, progress study. SOB. TECHNIQUE: Single AP portable semiupright view of the chest is obtained. COMPARISON: Chest x-ray from one day earlier and older studies. FINDINGS: Persistent right-sided pleural catheter with small to tiny lateral hydropneumothorax on cu rrent study. Persistent mild cardiomegaly with small left pleural effusion and increased right lung opacity. Promi nent left apical pleural thickening redemonstrated. Surgical changes right humerus is partially image d. IMPRESSION: Small bilateral pleural effusions with right-sided pleural drainage catheter. Tiny right- sided pneumothorax or air component seen better on current study. Persistent cardiomegaly with diffus e right lung edema. Findings suggest fluid overload state. [facility], , 12/09/2024 6:12 AM
--- NOTE | 2024-12-09 07:48 | P.PN ---
Subjective patient is 79-year-old gentleman with past medical history significant for multiple myeloma, hypertension, hyperlipidemia presented to the ER because of abnormal labs. Patient normally sees Dr. Broderick and was on systemic treatment which apparently had stopped taking. Patient had blood work drawn outpatient and was told by the manager privacy to come to the ER. Patient states over the last couple of days he has been having increasing shortness of breath. Shortness of breath was present at rest as on exertion. Patient was complaining of being lethargic and weakness. Patient also complaining of productive cough with occasional episodes of hemoptysis. Denies any chest pain. There is no complaint of fever or chills. There is no complaint of orthopnea or PND. Patient denies any nausea, vomiting, pain. Patient denies any lightheaded or dizziness. Initial lab work done in the ER showed WBC 3.8, hemoglobin 9, platelet count 134 sodium 142, potassium 4, BUN 40, creatinine 1.40 glucose 103, lactate 1.2, calcium 10.5, magnesium 1.4 bilirubin 0.7, AST 27, ALT 11, troponin 0.018, proBNP 1550 Influenza A not detected Influenza B not detected RSV not detected COVID-19 not detected EKG done in the ER showed heart rate of , no ST segment elevation or depression seen, no T-wave inversions seen. Chest x-ray done in the ER showed patchy infiltrative opacity throughout the right lung with small to moderate size right pleural effusion. Questionable air-fluid level versus overlying skinfold is indeterminate for cavitary lesion or abscess. Recommend CT chest for further evaluation, consolidation in the left lung apex CT chest PE protocol done showed no definite acute PE within the vasculature, significant progression of metastatic disease with numerous pleural-based metastatic deposits and involvement of the left-sided ribs additionally there is peritoneal carcinomatosis in the partially visualized upper abdomen. Patient admitted to internal medicine service 12/07. Patient seen and examined. Status post right-sided thoracentesis with removal of 720 cc of fluid. Blood work done today showed WBC 4.9, hemoglobin 8.8, platelet count 138, sodium 143, potassium 4.1, BUN 33, creatinine 1.74, calcium 9.7 Patient had right-sided Thora vent placed this morning. Currently on 4 L of oxygen. 12/08. Patient seen and examined. Vital signs done this morning showedTemp 98, heart rate 98, respirations 30, blood pressure 125/84, currently on 2 L of oxygen. Denies any shortness of breath at rest. Currently has a Thora vent in place. Chest x-ray done this morning shows right-sided pleural effusion, right- sided chest tube in place with residual pneumothorax. 12/09. Old male patient currently sleeping, he was agitated and restless overnight and he was prescribed Seroquel 25 mg which made him calm He still tachypneic with a breathing rate around 28, he is saturating high 90s on 3 L oxygen via nasal cannula Hemoglobin slightly trending down to 7.7 and creatinine up to 1.9 His proBNP is 1550 and procalcitonin negative at 0.16 Chest x-ray reviewed by myself showing right more than left infiltrate but looks better than 2 days ago Renal ultrasound showing no hydronephrosis finger right renal cyst He is currently kept on Zosyn. On home dose of Eliquis 2.5 mg. He had pneumothorax on the right side status post Thora vent, currently he has minimal discharge from his right Thora vent Objective - Vital Signs Vital signs: Vital Signs Temp 98.0 F 12/09/24 04:00 Pulse 82 12/09/24 07:00 Resp 28 H 12/09/24 07:00 BP 115/53 12/09/24 07:00 Pulse Ox 99 12/09/24 05:00 FiO2 3 12/07/24 11:00 Intake & Output 12/08/24 12/09/24 12/09/24 18:59 06:59 18:59 Intake Total 1170 900 75 Output Total 465 95 Balance 705 805 75 Weight 84.6 kg Intake: IV 825 900 75 0.9 825 900 75 Intake, IV Titration 100 Amount Piperacillin-Tazobactam 3 100 .375 gm In Sodium Chloride 0.9% 100 ml @ 25 mls/hr IVPB Q8H [facility] Rx#: [id number] Oral 245 Output: Chest Tube Drainage 140 20 Thora-Vent Right 140 20 Urine 325 75 Other: Voiding Method External Catheter Urinal # Voids 1 1 # Bowel Movements 1 - Exam -GENERAL: The patient is sleepy, not in any acute distress. Well developed, well nourished. HEENT: Pupils are round and equally reacting to light. EOMI. No scleral icterus. No conjunctival pallor. Normocephalic, atraumatic. No pharyngeal erythema. No thyromegaly. CARDIOVASCULAR: S1 and S2 present. No murmurs, rubs, or gallops. -PULMONARY: Chest is clear to auscultation, no wheezing , no crackles. Tachypneic, decreased breath sounds on the right side ABDOMEN: Soft, nontender, nondistended, normoactive bowel sounds. No palpable organomegaly. MUSCULOSKELETAL: No joint swelling or deformity. EXTREMITIES: No cyanosis, clubbing, or pedal edema. NEUROLOGICAL: Gross neurological examination did not reveal any focal deficits. SKIN: No rashes. no petechiae. Transfer to - Labs CBC & Chem 7: 12/08/24 05:21 12/08/24 05:21 Labs: Microbiology - Last 24 Hours (Table) 12/05/24 19:26 Blood Culture - Preliminary Blood 12/06/24 15:30 Gram Stain - Preliminary Pleural Fluid Body Fluid Culture - Preliminary Assessment and Plan Assessment: Large pleural effusion status post thoracocentesis Iatrogenic right pneumothorax status post Thora vent placement Acute hypoxic respiratory failure Multiple myeloma Acute kidney injury Hypercalcemia Chronic anemia Hypertension Hyperlipidemia Obstructive sleep apnea A-fib and RVR Plan: Continue with Zosyn Continue with home dose of Eliquis Continue with the breathing treatment Pulmonary/cardiology team consult Renal ultrasound is reviewed which was basically unremarkable and hematology collagen and nephrology team are also on consult DVT prophylaxis: Eliquis GI prophylaxis: Pepcid Prognosis is guarded
[2024-12-09 08:56] LABS: Basophils % (A) 1 %; Eosinophils # (A) 0.2 k/uL (0-0.7); Eosinophils % (A) 4 %; HCT 23.2 % (39.0-53.0); HGB 7.4 gm/dL (13.0-17.5); Lymphocytes # (A) 0.9 k/uL (1.0-4.8); Lymphocytes % (A) 20 %; MCH 33.6 pg (25.0-35.0); MCHC 31.9 g/dL (31.0-37.0); MCV 105.3 fL (80.0-100.0); Macrocytosis Moderate; Mean Platelet Volume 9.2; Monocytes # (A) 0.4 k/uL (0-1.0); Monocytes % (A) 9 %; Neutrophils # (A) 2.8 k/uL (1.3-7.7); Neutrophils % (A) 63 %; Platelet Count 127 k/uL (150-450); RDW 15.9 % (11.5-15.5); WBC 4.5 k/uL (3.8-10.6)
[2024-12-09 09:03] LABS: African American GFR (CKD) 42 (>60 ml/min/1.73 sqM); Anion Gap 7 mmol/L; Blood Urea Nitrogen 31 mg/dL (9-20); Calcium 9.4 mg/dL (8.4-10.2); Carbon Dioxide 23 mmol/L (22-30); Chloride 112 mmol/L (98-107); Glucose 94 mg/dL (74-99); Non-African American GFR(CKD) 36 (>60 ml/min/1.73 sqM); Sodium 142 mmol/L (137-145)
[2024-12-09] MEDS: FAMOTIDINE 20 MG/2 ML VIAL IV SCH (09:39)
--- NOTE | 2024-12-09 11:09 | P.PN ---
Subjective Progress Note Date: 12/09/24 Principal diagnosis: Acute hypoxic respiratory failure with large right-sided pleural effusion, multiple myeloma, Patient is a 79-year-old male with past medical history significant for hypertension, hyperlipidemia, KYM, multiple myeloma. His PCP is Dr. Jaimes. Also, follows with his oncologist Dr. Broderick. Patient had a bone marrow biopsy back on 11/11/2023 which was positive for multiple myeloma. Previously on systemic treatment, which he had stopped, apparently confused on whether he should continue the medication. Patient sent in by his oncologist yesterday for abnormal labs. On arrival, complaining of increased work of breathing over the last month. Occasional cough with mucus and occasional blood tinge. Workup in the ED including a chest CT angio which did not show any definite acute central pulmonary embolism, but technically limited due to suboptimal timing of contrast bolus. Overall, findings were consistent with disease progression. There was extensive soft tissue pleural metastatic deposits throughout bilateral lung henderson right greater than left. Extensive pleural metastatic disease in the left apex with involvement of the left first, second, and third ribs. Large right-sided pleural effusion and trace left-sided pleural effusion. Partially visualized upper abdomen demonstrating peritoneal carcinomatosis with large soft tissue implant in the left retroperitoneum measuring 6.4 x 4.1 cm. Bilateral hydronephrosis partially visualized. Enlarged retroperitoneal lymph node. Extensive osteolytic lesions throughout the visualized axial and appendicular skeleton compatible with osseous metastatic disease. CBC: WBC count 3.8, hemoglobin 9, platelets 134. CMP: Sodium 142, potassium 4, chloride 107, serum bicarb 21, BUN 40, creatinine 1.4, glucose 103. Lactic 1.2. Ionized calcium 5.4, magnesium 1.4, phosphorus 3.7. LFTs not elevated. Troponin 0.018. NT proBNP 1550. Viral screen negative for influenza, RSV, COVID. Patient currently being seen on the oncology floor. He is awake and alert, on 3 L/min nasal cannula, tachypneic in the mid 20s per minute. States he has been progressively more short of breath over the last month. States he uses 2 L supplemental oxygen hooked to his CPAP at bedtime. Denies chest pain, heart palpitations, lightheadedness or syncopal events, lower extremity edema. Does report occasional productive cough with brown mucus and occasional blood tinge. Denies any fevers, chills, chest pain, olivia hemoptysis. Denies known sick contacts. Appetite has been poor. Denies abdominal pain, nausea, vomiting, diarrhea, melena, hematochezia. Denies anticoagulant use. Denies history of previous thoracentesis. Patient was empirically covered on a combination of Zosyn and Levaquin in the ED. Current vital signs: Temperature 97.9 F, heart rate 100 bpm, blood pressure 145/66 mmHg, SpO2 recorded at 94% on 2 L/min nasal cannula. Patient was seen today on 12/07/2024, I had to move the patient earlier this morning to ICU as his right-sided pneumothorax showed some progression went from 10% to 30% overnight. Came into the ICU, and placed a Thora vent, 13 Amharic in the right pleural space with complete resolution of his right-sided pneumothorax. And more bloody effusion was drained through the Thora vent shortly after the Thora vent was placed. Again there was complete resolution of his pneumothorax, and almost near complete resolution of his pleural effusion which was bloody all along. Patient is now on 4 L nasal cannula, in no distress, he is off heparin, and considering the bloody effusion, I will hold on anticoagulation therapy for now. Patient remains on amiodarone, bron chodilators/updrafts, he is also on Zosyn and Levaquin empirically. WBC count is 4.4 hemoglobin 8.5 electrolytes are normal BUN is 33 creatinine 1.74. The fluid I drained yesterday is clearly exudative with high LDH of 1400 and protein more than 3600 this is likely consistent with malignant pleural effusion most likely related to his multiple myeloma. Patient was seen today on 12/08/2024, remains in the ICU, continues to have Thora vent in place, patient had over 1200 cc of bloody effusion drained over the last 24 hours, and prior to this I have drained over 700 cc initially and the fluid was also bloody. This is most likely a pleural effusion related to multiple myeloma, cytology is pending. Patient remains empirically on antibiotics, however I went ahead and discontinued Levaquin on this patient, and I kept him on Zosyn as he seems to be developing some worsening of his renal status, patient is clinically dry dehydrated, and I am recommending increase of his IV fluid. Hemoglobin is 7.7 WBC count is 4.7 electrolytes are normal however creatinine went up to 1.92 from 1.74 yesterday, baseline on admission was 1.40. Patient remains off heparin mostly because of his bloody effusion, patient is on 3 L nasal cannula with O2 sats of 96%. Chest x-ray today was reviewed, I did not truly appreciate a pneumothorax on the chest x-ray today, and hardly any air leak is noted. Patient was seen today on 12/09/2024, remains in the ICU, continues to have Thora vent in place, and connected to Pleur-evac. No airleak is noted, minimal drainage overnight, less than 50 cc. No further air leak is noted, hence I went ahead and disconnected the Thora vent from Pleur-evac, and applied the one-way valve on the Thora vent. Patient is doing well, relatively asymptomatic, remains on IV fluid at 75 cc/h with slight improvement in his renal status, renal ultrasound showed no evidence of hydronephrosis. Patient remains on Zosyn, Eliquis is on hold, he is also on Seroquel. Chest x-ray will be repeated sometime later today to make sure the patient does not have any expansion of pneumothorax in the right lung. Continues to have some right lower lobe consolidation,, patient remains on antibiotics. The results on the pleural effusion are pending especially the cytology, the protein in the pleural effusion and the LDH suggest that it is malignant unless proven otherwise., It is definitely exudative. WBC count is 4.5 hemoglobin 7.4 electrolytes are normal BUN is 41 creatinine 1.75. Platelets are 1 27,000. Objective - Vital Signs Vital signs: Vital Signs Temp 97.7 F 12/09/24 08:00 Pulse 85 12/09/24 10:00 Resp 20 12/09/24 10:00 BP 133/61 12/09/24 10:00 Pulse Ox 96 12/09/24 10:00 FiO2 3 12/07/24 11:00 Intake & Output 12/08/24 12/09/24 12/09/24 18:59 06:59 18:59 Intake Total 1170 900 300 Output Total 465 95 200 Balance 705 805 100 Weight 84.6 kg Intake: IV 825 900 300 0.9 825 900 300 Intake, IV Titration 100 Amount Piperacillin-Tazobactam 3 100 .375 gm In Sodium Chloride 0.9% 100 ml @ 25 mls/hr IVPB Q8H [facility] Rx#: [id number] Oral 245 Output: Chest Tube Drainage 140 20 Thora-Vent Right 140 20 Urine 325 75 200 Other: Voiding Method External Catheter Urinal Urinal # Voids 1 1 0 # Bowel Movements 1 - Exam GENERAL EXAM: Revealed 79-year-old white male in no distress, on 3 L nasal cannula looks frail, and chronically ill. O2 saturation 96% HEAD: Normocephalic and atraumatic, EYES: Normal reaction of pupils, equal size. NOSE: Clear with pink turbinates. THROAT: No erythema or exudates. NECK: No masses, no JVD. CHEST: No chest wall deformity. Right-sided Thora vent is noted, connected to Pleur-evac, no airleak noted. LUNGS: Right sided Thora vent is noted clear bilaterally no rhonchi no wheezes CVS: S1 and S2 normal with no audible murmur, regular rhythm. No extra heart sounds ABDOMEN: No hepatosplenomegaly, active bowel sounds, no guarding or rigidity. SKIN: No rashes CENTRAL NERVOUS SYSTEM: Alert and oriented x 3 no gross focal deficit EXTREMITIES: No clubbing edema or cyanosis. - Labs CBC & Chem 7: 12/09/24 08:09 12/09/24 08:09 Labs: Abnormal Lab Results - Last 24 Hours (Table) 12/09/24 12/09/24 Range/Units 08:09 08:09 RBC 2.20 L (4.30-5.90) m/uL Hgb 7.4 L (13.0-17.5) gm/dL Hct 23.2 L (39.0-53.0) % MCV 105.3 H (80.0-100.0) fL RDW 15.9 H (11.5-15.5) % Plt Count 127 L (150-450) k/uL Lymphocytes # 0.9 L (1.0-4.8) k/uL Chloride 112 H (98-107) mmol/L BUN 31 H (9-20) mg/dL Creatinine 1.75 H (0.66-1.25) mg/dL Microbiology - Last 24 Hours (Table) 12/05/24 19:26 Blood Culture - Preliminary Blood 12/06/24 15:30 Gram Stain - Preliminary Pleural Fluid Body Fluid Culture - Preliminary Assessment and Plan Assessment: Impression: Acute hypoxemic respiratory failure, multifactorial Status post right-sided thoracentesis with right-sided iatrogenic pneumothorax requiring Thora vent placement Large right-sided pleural effusion, bloody and most likely malignant unless prov en otherwise, fluid was noted to be exudative with a relatively high protein and very high LDH. Most likely secondary to multiple myeloma. Multiple myeloma, chest CT angio concerning for disease progression Acute kidney injury, with bilateral hydronephrosis, noted on CT of the chest, will check ultrasound for hydronephrosis Hypercalcemia, ionized calcium 5.4 Chronic anemia Hypertension History of hyperlipidemia History of obstructive sleep apnea with CPAP Possible right lower lobe pneumonia Recommendation: Disconnected Pleur-evac from Thora vent today and applied the one-way valve on the Thora vent. Will repeat chest x-ray in a couple of hours. Continue to monitor in the ICU Continue to hold anticoagulation therapy including heparin and Eliquis Monitor hemoglobin and transfuse for any hemoglobin below 7 Continue antibiotics , patient seems to have some significant consolidation in the right lower lobe Patient is being followed by oncology for his multiple myeloma which has shown progression Prognosis remains very poor and guarded. Patient remains relatively quite ill. Will continue to follow Time with Patient: Less than 30
--- NOTE | 2024-12-09 11:20 | P.NPCON ---
History of Present Illness - Reason for Consult acute renal failure - History of Present Illness Patient is a 79-year-old male with history of multiple myeloma, hypertension. Patient stopped all his medications prior to admission. He was complaining of shortness of breath and increased weakness along with cough. No history of nausea vomiting. Patient had right thoracentesis with 750 mL of fluid removed. He was noted to have pneumothorax and has had a Thora vent placed with complete resolution of pneumothorax. Serum creatinine was 1.4 on admission and increased to 1.9 yesterday. It is down to 1.7 today. Currently maintained on IV fluids. No significant hypotension noted. Patient was also noted to be in A-fib with RVR and is status post amiodarone drip. He did receive IV fluids on initial admission. Currently not on IV fluids or diuretics. Patient has an external catheter and 400 mL of urine charted for 24 hours. Past Medical History Past Medical History: Cancer, Hyperlipidemia, Hypertension Additional Past Medical History / Comment(s): multiple myeloma History of Any Multi-Drug Resistant Organisms: None Reported Past Surgical History: Bowel Resection, Orthopedic Surgery Additional Past Surgical History / Comment(s): Broken arm that required surgery, colon resection Past Anesthesia/Blood Transfusion Reactions: No Reported Reaction Past Psychological History: No Psychological Hx Reported Smoking Status: Former smoker Past Alcohol Use History: None Reported Past Drug Use History: None Reported Medications and Allergies Home Medications Medication Instructions Recorded Confirmed Type Omeprazole 20 mg PO DAILY 11/06/23 12/05/24 History amLODIPine [Norvasc] 5 mg PO DAILY tab 11/13/23 12/05/24 Rx Aspirin 81 mg PO DAILY 03/09/24 12/05/24 History Docusate Sodium 250 mg PO DAILY 03/09/24 12/05/24 History Metoprolol Succinate (ER) [Toprol 25 mg PO DAILY 03/09/24 12/05/24 History Xl] clonazePAM [KlonoPIN] 0.5 mg PO HS 03/09/24 12/05/24 History Acetaminophen Tab [Tylenol Tab] 1,000 mg PO Q6H PRN 12/05/24 12/05/24 History Atorvastatin [Lipitor] 20 mg PO HS 12/05/24 12/05/24 History Calcium Citrate/Vitamin D3 1 tab PO DAILY 12/05/24 12/05/24 History [Calcium Cit 315-Vit D3 6.25 Mcg (250 Iu)] Diphenoxylate HCl/Atropine 1 tab PO QID PRN 12/05/24 12/05/24 History [Lomotil 2.5-0.025 mg Tablet] Loperamide [Imodium] 2 - 4 mg PO QID PRN 12/05/24 12/05/24 History Multivit-Min/FA/Lycopen/Lutein 1 tab PO DAILY 12/05/24 12/05/24 History [Centrum Silver Tablet] Naproxen Sodium [Aleve] 220 mg PO BID PRN 12/05/24 12/05/24 History Allergies Allergy/AdvReac Type Severity Reaction Status Date / Time No Known Allergies Allergy Verified 12/05/24 18:09 Physical Exam Vitals: Vital Signs Temp Pulse Resp BP Pulse Ox 12/09/24 10:00 85 20 133/61 96 12/09/24 09:00 85 23 122/59 96 12/09/24 08:00 97.7 F 85 17 125/52 96 12/09/24 07:00 82 28 H 115/53 12/09/24 06:00 81 23 115/68 12/09/24 05:00 82 30 H 148/64 99 12/09/24 04:00 98.0 F 84 25 H 126/57 99 12/09/24 03:00 83 31 H 125/60 96 12/09/24 02:00 82 30 H 126/58 12/09/24 01:00 82 28 H 126/59 12/09/24 00:17 81 26 H 126/59 98 12/09/24 00:00 98.6 F 81 18 125/57 98 12/08/24 23:00 90 11 L 129/57 98 12/08/24 22:00 87 26 H 125/58 100 12/08/24 21:00 97 36 H 115/61 97 12/08/24 20:00 98.6 F 86 32 H 116/53 96 12/08/24 19:00 88 18 114/49 96 12/08/24 18:00 87 22 126/66 97 12/08/24 17:00 85 16 119/50 96 12/08/24 16:00 98.2 F 81 22 112/50 96 12/08/24 15:00 79 19 138/63 96 03/21/25 14:00 92 20 129/58 96 12/08/24 13:00 89 29 H 129/80 97 12/08/24 12:00 97.9 F 96 22 127/60 96 Intake and Output 12/08/24 12/09/24 12/09/24 22:59 06:59 14:59 Intake Total 720 600 300 Output Total 315 20 200 Balance 405 580 100 Intake: IV 600 600 300 0.9 600 600 300 Oral 120 Output: Chest Tube Drainage 140 20 Thora-Vent Right 140 20 Urine 175 200 Other: Voiding Method External Catheter Urinal Urinal # Voids 1 1 0 # Bowel Movements 1 Weight 84.6 kg Patient is awake, comfortable, no acute distress Examination of the heart S1 and S2 Examination of the lungs bilateral breath sounds are heard Abdomen is soft nontender Examination of lower extremities shows no significant edema COW RIDER exam is grossly intact Results - Lab Results Most recent lab results Calcium 9.4 mg/dL (8.4-10.2) 12/09/24 08:09 Phosphorus 3.7 mg/dL (2.5-4.5) 12/05/24 16:30 Magnesium 1.4 mg/dL (1.6-2.3) L 12/05/24 16:30 12/09/24 08:09 12/09/24 08:09 Assessment and Plan Assessment: 1. Acute kidney injury most likely ATN currently nonoliguric, rule out urine retention patient was noted to be in A-fib with RVR. No significant hypotension documented. He did have low hemoglobin at 7.4 g/dL. Check UA 2. Right pleural effusion status post thoracentesis with development of pneumothorax status post Thora vent with resolution of pneumothorax 3. Anemia with no active bleeding noted. Underlying history of multiple myeloma 4. Multiple myeloma being followed by Dr. Poon. Patient stopped all his medications prior to admission. 5. Hypercalcemia on initial admission possibly related to hypovolemia, now improved to 9.4. Patient has had significant hypercalcemia previously most likely related to multiple myeloma in October 2023 Plan: Add IV fluids Repeat labs in a.m. Check bladder scan Encourage increase oral intake
--- NOTE | 2024-12-09 11:53 | XR ---
EXAMINATION TYPE: XR chest 1V portable DATE OF EXAM: 12/09/2024 CLINICAL INDICATION: Male, 79 years old with history of Pneumothorax, progress study. TECHNIQUE: Single AP portable upright view of the chest is obtained. COMPARISON: Chest x-ray from earlier today FINDINGS: Persistent left apical pleural drainage catheter without pneumothorax seen on current stud y. Persistent mild cardiomegaly with small right greater than left pleural effusions and increased right lung opacity redemonstrated. Prominent left apical pleural thickening redemonstrated. Surgical up e in right humerus is partially imaged. IMPRESSION: Small right greater than left bilateral pleural effusions with right-sided pleural draina ge catheter. No obvious pneumothorax on current study. Persistent cardiomegaly with diffuse right jacob g edema. Findings suggest fluid overload state. [facility], , 12/09/2024 11:50 AM
[2024-12-09] MEDS: FUROSEMIDE 10 MG/ML 4 ML VIAL IV STA (12:22)
[2024-12-09] MEDS: SODIUM CHLORIDE 0.9% 1,000 ML IV SCH (12:23)
--- NOTE | 2024-12-10 08:54 | XR ---
EXAMINATION TYPE: XR chest 1V portable DATE OF EXAM: 12/10/2024 CLINICAL INDICATION: Male, 79 years old with history of ptx/pleural effusion, progress study. TECHNIQUE: Single AP portable upright view of the chest is obtained. COMPARISON: Chest x-ray from one day earlier FINDINGS: Persistent right apical pleural drainage catheter without pneumothorax seen on current miller dy. Persistent mild cardiomegaly with small left pleural effusion and now moderate-sized right pleural ef fusion. Prominent left apical pleural thickening redemonstrated. Surgical change in right humerus is partially imaged. IMPRESSION: Moderate to large size right-sided pleural effusion is more prominent versus most recent prior. New tiny left-sided pneumothorax estimated 5-10%. [facility], , 12/10/2024 8:52 AM
--- NOTE | 2024-12-10 10:26 | P.PN ---
Subjective patient is 79-year-old gentleman with past medical history significant for multiple myeloma, hypertension, hyperlipidemia presented to the ER because of abnormal labs. Patient normally sees Dr. Broderick and was on systemic treatment which apparently had stopped taking. Patient had blood work drawn outpatient and was told by the manager visual to come to the ER. Patient states over the last couple of days he has been having increasing shortness of breath. Shortness of breath was present at rest as on exertion. Patient was complaining of being lethargic and weakness. Patient also complaining of productive cough with occasional episodes of hemoptysis. Denies any chest pain. There is no complaint of fever or chills. There is no complaint of orthopnea or PND. Patient denies any nausea, vomiting, pain. Patient denies any lightheaded or dizziness. Initial lab work done in the ER showed WBC 3.8, hemoglobin 9, platelet count 134 sodium 142, potassium 4, BUN 40, creatinine 1.40 glucose 103, lactate 1.2, calcium 10.5, magnesium 1.4 bilirubin 0.7, AST 27, ALT 11, troponin 0.018, proBNP 1550 Influenza A not detected Influenza B not detected RSV not detected COVID-19 not detected EKG done in the ER showed heart rate of , no ST segment elevation or depression seen, no T-wave inversions seen. Chest x-ray done in the ER showed patchy infiltrative opacity throughout the right lung with small to moderate size right pleural effusion. Questionable air-fluid level versus overlying skinfold is indeterminate for cavitary lesion or abscess. Recommend CT chest for further evaluation, consolidation in the left lung apex CT chest PE protocol done showed no definite acute PE within the vasculature, significant progression of metastatic disease with numerous pleural-based metastatic deposits and involvement of the left-sided ribs additionally there is peritoneal carcinomatosis in the partially visualized upper abdomen. Patient admitted to internal medicine service 12/07. Patient seen and examined. Status post right-sided thoracentesis with removal of 720 cc of fluid. Blood work done today showed WBC 4.9, hemoglobin 8.8, platelet count 138, sodium 143, potassium 4.1, BUN 33, creatinine 1.74, calcium 9.7 Patient had right-sided Thora vent placed this morning. Currently on 4 L of oxygen. 12/08. Patient seen and examined. Vital signs done this morning showedTemp 98, heart rate 98, respirations 30, blood pressure 125/84, currently on 2 L of oxygen. Denies any shortness of breath at rest. Currently has a Thora vent in place. Chest x-ray done this morning shows right-sided pleural effusion, right- sided chest tube in place with residual pneumothorax. 12/09. Old male patient currently sleeping, he was agitated and restless overnight and he was prescribed Seroquel 25 mg which made him calm He still tachypneic with a breathing rate around 28, he is saturating high 90s on 3 L oxygen via nasal cannula Hemoglobin slightly trending down to 7.7 and creatinine up to 1.9 His proBNP is 1550 and procalcitonin negative at 0.16 Chest x-ray reviewed by myself showing right more than left infiltrate but looks better than 2 days ago Renal ultrasound showing no hydronephrosis finger right renal cyst He is currently kept on Zosyn. On home dose of Eliquis 2.5 mg. He had pneumothorax on the right side status post Thora vent, currently he has minimal discharge from his right Thora vent 12/10 Patient moved out of the ICU to select unit He is more awake today but still confused, he was trying to pull out his lines and Thora vent. He is mildly tachypneic with talking. He can tell he is in the hospital but also still mildly confused. Serevent was Today. Repeat chest x-ray showing mild improvement in the right pneumothorax, I reviewed the chest x-ray by myself. He remains on Zosyn and home dose of Eliquis 2.5 Will going to add small dose of Seroquel 12.5. Review of systems CONSTITUTIONAL: No fever, no malaise, no fatigue. HEMATOLOGICAL: Denies any bleeding or petechiae. GENITOURINARY: Denies any burning micturition, frequency, or urgency. MUSCULOSKELETAL/RHEUMATOLOGICAL: Denies any joint pain, swelling, or any muscle pain. ENDOCRINE: Denies any polyuria or polydipsia. Active Medications Generic Name Dose Route Start Last Admin Trade Name Freq PRN Reason Stop Dose Admin Albuterol/Ipratropium 3 ml 12/05/24 18:42 12/07/24 01:50 Ipratropium-Albuterol 3 Ml Neb INHALATION 3 ml RT-Q4H PRN Administration shortness of breath Amiodarone HCl 200 mg 12/07/24 12:30 12/10/24 07:23 Amiodarone 200 Mg Tab PO 200 mg BID VIKY Administration Famotidine 10 mg 12/09/24 09:00 12/10/24 07:23 Famotidine 20 Mg/2 Ml Vial IV 10 mg Q12HR VIKY Administration Piperacillin Sod/Tazobactam 100 mls @ 25 mls/hr 12/06/24 03:00 12/10/24 02:45 Sod 3.375 gm/ Sodium Chloride IVPB 25 mls/hr Q8H VIKY Administration Protocol Sodium Chloride 1,000 mls @ 25 mls/hr 12/09/24 11:30 12/09/24 12:23 Saline 0.9% IV 25 mls/hr .Q24H VIKY Administration Metoprolol Succinate 50 mg 12/07/24 09:00 12/10/24 07:23 Metoprolol Succinate (Er) 50 Mg Tab.Er.24h PO 50 mg DAILY VIKY Administration Miscellaneous Information 1 each 12/05/24 18:42 Pneumonia Protocol Utilized 1 Each Misc PO ONCE PRN Per Protocol Miscellaneous Information 1 each 12/08/24 06:49 Potassium Replacement Protocol 1 Each Misc MISCELLANE DAILY PRN Per Protocol Protocol Quetiapine Fumarate 25 mg 12/09/24 04:05 12/10/24 07:23 Quetiapine 25 Mg Tab PO 25 mg BID PRN Administration Agitation or Acute Psychosis Quetiapine Fumarate 12.5 mg 12/10/24 09:58 Quetiapine 25 Mg Tab PO DAILY PRN Agitation Objective - Vital Signs Vital signs: Vital Signs Temp 97.6 F 12/10/24 07:20 Pulse 93 12/10/24 07:20 Resp 17 12/10/24 07:20 BP 152/69 12/10/24 07:20 Pulse Ox 94 L 12/10/24 07:20 FiO2 3 12/07/24 11:00 Intake & Output 12/09/24 12/10/24 12/10/24 18:59 06:59 18:59 Intake Total 600 665 Output Total 900 500 Balance -300 165 Intake: IV 600 125 0.9 600 125 Oral 540 Output: Urine 900 500 Other: Voiding Method Urinal External Catheter # Voids 0 1 - Exam -GENERAL: The patient is sleepy, not in any acute distress. Well developed, well nourished. HEENT: Pupils are round and equally reacting to light. EOMI. No scleral icterus. No conjunctival pallor. Normocephalic, atraumatic. No pharyngeal erythema. No thyromegaly. CARDIOVASCULAR: S1 and S2 present. No murmurs, rubs, or gallops. -PULMONARY: Chest is clear to auscultation, no wheezing , no crackles. Tach ypneic, decreased breath sounds on the right side ABDOMEN: Soft, nontender, nondistended, normoactive bowel sounds. No palpable organomegaly. MUSCULOSKELETAL: No joint swelling or deformity. EXTREMITIES: No cyanosis, clubbing, or pedal edema. NEUROLOGICAL: Gross neurological examination did not reveal any focal deficits. SKIN: No rashes. no petechiae. Transfer to - Labs CBC & Chem 7: 12/09/24 08:09 12/09/24 08:09 Labs: Microbiology - Last 24 Hours (Table) 12/06/24 15:30 Gram Stain - Preliminary Pleural Fluid Body Fluid Culture - Preliminary Assessment and Plan Assessment: Large pleural effusion status post thoracocentesis Iatrogenic right pneumothorax status post Thora vent placement Acute hypoxic respiratory failure Multiple myeloma Acute kidney injury Hypercalcemia Chronic anemia Hypertension Hyperlipidemia Obstructive sleep apnea A-fib and RVR Plan: Continue with Zosyn Continue with home dose of Eliquis Continue with the breathing treatment Pulmonary/cardiology team consult Renal ultrasound is reviewed which was basically unremarkable and hematology collagen and nephrology team are also on consult DVT prophylaxis: Eliquis GI prophylaxis: Pepcid Prognosis is guarded
[2024-12-10 10:41] LABS: African American GFR (CKD) 40 (>60 ml/min/1.73 sqM); Anion Gap 8 mmol/L; Blood Urea Nitrogen 31 mg/dL (9-20); Calcium 9.8 mg/dL (8.4-10.2); Carbon Dioxide 25 mmol/L (22-30); Chloride 111 mmol/L (98-107); Glucose 99 mg/dL (74-99); Non-African American GFR(CKD) 35 (>60 ml/min/1.73 sqM); Potassium 3.9 mmol/L (3.5-5.1); Sodium 144 mmol/L (137-145)
--- NOTE | 2024-12-10 10:52 | XR ---
EXAMINATION TYPE: XR chest 1V portable DATE OF EXAM: 12/10/2024 CLINICAL INDICATION: Male, 79 years old with history of Pneumothorax, progress study. TECHNIQUE: Single AP portable upright view of the chest is obtained. COMPARISON: Chest x-ray from earlier today FINDINGS: Persistent right apical pleural drainage catheter without pneumothorax seen on current miller dy. Persistent mild cardiomegaly with small left pleural effusion and moderate-sized right pleural effus ion. Prominent left apical pleural thickening redemonstrated. Surgical change in right humerus is par tially imaged. No pneumothorax seen on current study. Bilateral increased opacities are redemonstrate d. IMPRESSION: No left-sided pneumothorax on the current study. Other findings stable with cardiomegaly and small to moderate-sized right greater than left pleural effusions and diffuse bilateral edema and /or acute infiltrates are all redemonstrated. [facility], , 12/10/2024 10:50 AM
--- NOTE | 2024-12-10 11:35 | P.PN ---
Subjective Patient is seen for follow-up for acute kidney injury. Currently off of IV fluids. Received Lasix this morning. Has Thora vent for right pneumothorax. Patient has external catheter with urine output documented at 1400 mL Serum creatinine at 1.8 today Objective - Vital Signs Vital signs: Vital Signs Temp 97.6 F 12/10/24 07:20 Pulse 93 12/10/24 07:20 Resp 17 12/10/24 07:20 BP 152/69 12/10/24 07:20 Pulse Ox 94 L 12/10/24 07:20 FiO2 3 12/07/24 11:00 Intake & Output 12/09/24 12/10/24 12/10/24 18:59 06:59 18:59 Intake Total 600 665 Output Total 900 500 Balance -300 165 Intake: IV 600 125 0.9 600 125 Oral 540 Output: Urine 900 500 Other: Voiding Method Urinal External Catheter External Catheter # Voids 0 1 - Exam Patient is awake, comfortable, no acute distress Examination of the heart S1 and S2 Examination of the lungs bilateral breath sounds are heard Abdomen is soft nontender Examination of lower extremities shows no significant edema EXT JS DEVELOPER exam is grossly intact - Labs CBC & Chem 7: 12/09/24 08:09 12/10/24 10:18 Labs: Abnormal Lab Results - Last 24 Hours (Table) 12/10/24 Range/Units 10:18 Chloride 111 H (98-107) mmol/L BUN 31 H (9-20) mg/dL Creatinine 1.82 H (0.66-1.25) mg/dL Microbiology - Last 24 Hours (Table) 12/06/24 15:30 Gram Stain - Preliminary Pleural Fluid Body Fluid Culture - Preliminary Assessment and Plan Assessment: 1. Acute kidney injury most likely ATN currently nonoliguric, patient was also noted to be in A-fib with RVR. No significant hypotension documented. He did have low hemoglobin at 7.4 g/dL. Check UA. Ultrasound does not show any evidence of obstruction. Serum creatinine 1.4 on admission and 0.8 on 07/27/2024 2. Right pleural effusion status post thoracentesis with development of pneumothorax status post Thora vent with resolution of pneumothorax 3. Anemia with no active bleeding noted. Underlying history of multiple mye magda 4. Multiple myeloma being followed by Dr. Aden. Patient stopped all his medications prior to admission. 5. Hypercalcemia on initial admission possibly related to hypovolemia, now improved to 9.4. Patient has had significant hypercalcemia previously most likely related to multiple myeloma in October 2023 Plan: May continue off of IV fluids Reordered UA Repeat labs in a.m. Encourage increase oral intake
--- NOTE | 2024-12-10 13:36 | P.PN ---
Subjective Progress Note Date: 12/10/24 Principal diagnosis: Acute hypoxic respiratory failure with large right-sided pleural effusion, multiple myeloma, Patient is a 79-year-old male with past medical history significant for hypertension, hyperlipidemia, KYM, multiple myeloma. His PCP is Dr. Jaimes. Also, follows with his oncologist Dr. Broderick. Patient had a bone marrow biopsy back on 11/11/2023 which was positive for multiple myeloma. Previously on systemic treatment, which he had stopped, apparently confused on whether he should continue the medication. Patient sent in by his oncologist yesterday for abnormal labs. On arrival, complaining of increased work of breathing over the last month. Occasional cough with mucus and occasional blood tinge. Workup in the ED including a chest CT angio which did not show any definite acute central pulmonary embolism, but technically limited due to suboptimal timing of contrast bolus. Overall, findings were consistent with disease progression. There was extensive soft tissue pleural metastatic deposits throughout bilateral lung henderson right greater than left. Extensive pleural metastatic disease in the left apex with involvement of the left first, second, and third ribs. Large right-sided pleural effusion and trace left-sided pleural effusion. Partially visualized upper abdomen demonstrating peritoneal carcinomatosis with large soft tissue implant in the left retroperitoneum measuring 6.4 x 4.1 cm. Bilateral hydronephrosis partially visualized. Enlarged retroperitoneal lymph node. Extensive osteolytic lesions throughout the visualized axial and appendicular skeleton compatible with osseous metastatic disease. CBC: WBC count 3.8, hemoglobin 9, platelets 134. CMP: Sodium 142, potassium 4, chloride 107, serum bicarb 21, BUN 40, creatinine 1.4, glucose 103. Lactic 1.2. Ionized calcium 5.4, magnesium 1.4, phosphorus 3.7. LFTs not elevated. Troponin 0.018. NT proBNP 1550. Viral screen negative for influenza, RSV, COVID. Patient currently being seen on the oncology floor. He is awake and alert, on 3 L/min nasal cannula, tachypneic in the mid 20s per minute. States he has been progressively more short of breath over the last month. States he uses 2 L supplemental oxygen hooked to his CPAP at bedtime. Denies chest pain, heart palpitations, lightheadedness or syncopal events, lower extremity edema. Does report occasional productive cough with brown mucus and occasional blood tinge. Denies any fevers, chills, chest pain, olivia hemoptysis. Denies known sick contacts. Appetite has been poor. Denies abdominal pain, nausea, vomiting, diarrhea, melena, hematochezia. Denies anticoagulant use. Denies history of previous thoracentesis. Patient was empirically covered on a combination of Zosyn and Levaquin in the ED. Current vital signs: Temperature 97.9 F, heart rate 100 bpm, blood pressure 145/66 mmHg, SpO2 recorded at 94% on 2 L/min nasal cannula. Patient was seen today on 12/07/2024, I had to move the patient earlier this morning to ICU as his right-sided pneumothorax showed some progression went from 10% to 30% overnight. Came into the ICU, and placed a Thora vent, 13 Maori in the right pleural space with complete resolution of his right-sided pneumothorax. And more bloody effusion was drained through the Thora vent shortly after the Thora vent was placed. Again there was complete resolution of his pneumothorax, and almost near complete resolution of his pleural effusion which was bloody all along. Patient is now on 4 L nasal cannula, in no distress, he is off heparin, and considering the bloody effusion, I will hold on anticoagulation therapy for now. Patient remains on amiodarone, bron chodilators/updrafts, he is also on Zosyn and Levaquin empirically. WBC count is 4.4 hemoglobin 8.5 electrolytes are normal BUN is 33 creatinine 1.74. The fluid I drained yesterday is clearly exudative with high LDH of 1400 and protein more than 3600 this is likely consistent with malignant pleural effusion most likely related to his multiple myeloma. Patient was seen today on 12/08/2024, remains in the ICU, continues to have Thora vent in place, patient had over 1200 cc of bloody effusion drained over the last 24 hours, and prior to this I have drained over 700 cc initially and the fluid was also bloody. This is most likely a pleural effusion related to multiple myeloma, cytology is pending. Patient remains empirically on antibiotics, however I went ahead and discontinued Levaquin on this patient, and I kept him on Zosyn as he seems to be developing some worsening of his renal status, patient is clinically dry dehydrated, and I am recommending increase of his IV fluid. Hemoglobin is 7.7 WBC count is 4.7 electrolytes are normal however creatinine went up to 1.92 from 1.74 yesterday, baseline on admission was 1.40. Patient remains off heparin mostly because of his bloody effusion, patient is on 3 L nasal cannula with O2 sats of 96%. Chest x-ray today was reviewed, I did not truly appreciate a pneumothorax on the chest x-ray today, and hardly any air leak is noted. Patient was seen today on 12/09/2024, remains in the ICU, continues to have Thora vent in place, and connected to Pleur-evac. No airleak is noted, minimal drainage overnight, less than 50 cc. No further air leak is noted, hence I went ahead and disconnected the Thora vent from Pleur-evac, and applied the one-way valve on the Thora vent. Patient is doing well, relatively asymptomatic, remains on IV fluid at 75 cc/h with slight improvement in his renal status, renal ultrasound showed no evidence of hydronephrosis. Patient remains on Zosyn, Eliquis is on hold, he is also on Seroquel. Chest x-ray will be repeated sometime later today to make sure the patient does not have any expansion of pneumothorax in the right lung. Continues to have some right lower lobe consolidation,, patient remains on antibiotics. The results on the pleural effusion are pending especially the cytology, the protein in the pleural effusion and the LDH suggest that it is malignant unless proven otherwise., It is definitely exudative. WBC count is 4.5 hemoglobin 7.4 electrolytes are normal BUN is 41 creatinine 1.75. Platelets are 1 27,000. Seen today on 12/10/2024, patient is now on medical floor, very comfortable, on 3 L nasal cannula, not in distress. Patient is hemodynamically stable blood pressure is 128/65, heart rate is 84, patient is afebrile. Temp is 97.6. Chest x-ray this morning was read by the ER physician as a left-sided pneumothorax which I reviewed myself, and I fully disagreed with the reading, this would have been a spontaneous left-sided pneumothorax, however follow-up chest x-ray was done and there was no evidence of pneumothorax on the left side. But both x- rays did reflect evidence of fluid overload and pulmonary edema with bilateral pleural effusions, has I recommended diuresing the patient further today. Yesterday he responded well to Lasix, and I am recommending another dose of Lasix 40 mg IV push to be given today. His Thora vent remains off suction, but he does have the one-way valve/occluding valve. And there is no evidence of pneumothorax on the right side. But again I believe the patient is building bilateral pleural effusions again. Cytology from his pleural effusion which I drained back on 12/07 is still pending I expect it to be related to multiple my eloma. Labs today showed relatively normal electrolytes BUN is 31 creatinine is up to 1.82 Objective - Vital Signs Vital signs: Vital Signs Temp 97.6 F 12/10/24 11:32 Pulse 84 12/10/24 11:32 Resp 17 12/10/24 11:32 BP 128/65 12/10/24 11:32 Pulse Ox 96 12/10/24 11:32 FiO2 3 12/07/24 11:00 Intake & Output 12/09/24 12/10/24 12/10/24 18:59 06:59 18:59 Intake Total 600 665 Output Total 900 500 400 Balance -300 165 -400 Intake: IV 600 125 0.9 600 125 Oral 540 Output: Urine 900 500 400 Other: Voiding Method Urinal External Catheter External Catheter # Voids 0 1 - Exam GENERAL EXAM: Revealed 79-year-old white male in no distress, on 3 L nasal cannula looks frail, and chronically ill. O2 saturation 96% HEAD: Normocephalic and atraumatic, EYES: Normal reaction of pupils, equal size. NOSE: Clear with pink turbinates. THROAT: No erythema or exudates. NECK: No masses, no JVD. CHEST: No chest wall deformity. Right-sided Thora vent disconnected from Pleur- evac. However it is occluded with one-way valve plug. LUNGS: Right sided Thora vent is noted diminished breath sounds at the bases no rhonchi no wheezes CVS: S1 and S2 normal with no audible murmur, regular rhythm. No extra heart sounds ABDOMEN: No hepatosplenomegaly, active bowel sounds, no guarding or rigidity. SKIN: No rashes CENTRAL NERVOUS SYSTEM: Alert and oriented x 3 no gross focal deficit EXTREMITIES: No clubbing edema or cyanosis. - Labs CBC & Chem 7: 12/09/24 08:09 12/10/24 10:18 Labs: Abnormal Lab Results - Last 24 Hours (Table) 12/10/24 Range/Units 10:18 Chloride 111 H (98-107) mmol/L BUN 31 H (9-20) mg/dL Creatinine 1.82 H (0.66-1.25) mg/dL Microbiology - Last 24 Hours (Table) 12/06/24 15:30 Gram Stain - Preliminary Pleural Fluid Body Fluid Culture - Preliminary Assessment and Plan Assessment: Impression: Acute hypoxemic respiratory failure, multifactorial Status post right-sided thoracentesis with right-sided iatrogenic pneumothorax requiring Thora vent placement Large right-sided pleural effusion, bloody and most likely malignant unless proven otherwise, fluid was noted to be exudative with a relatively high protein and very high LDH. Most likely secondary to multiple myeloma. Multiple myeloma, chest CT angio concerning for disease progression Acute kidney injury, with bilateral hydronephrosis, noted on CT of the chest, will check ultrasound for hydronephrosis Hypercalcemia, ionized calcium 5.4 Chronic anemia Hypertension History of hyperlipidemia History of obstructive sleep apnea with CPAP Possible right lower lobe pneumonia Recommendation: Reviewed chest x-ray today, there is no evidence of left-sided pneumothorax as mentioned by the radiologist I also reviewed the chest x-ray that the radiologist reviewed and again I do not believe the patient has left-sided pneumothorax Continue Thora vent now in place Diurese patient Continue to hold anticoagulation therapy because of his bloody pleural effusion Monitor hemoglobin and transfuse for any hemoglobin below 7 Continue antibiotics , patient seems to have some significant consolidation in the right lower lobe Patient is being followed by oncology for his multiple myeloma which has shown progression Prognosis remains very poor and guarded. Patient remains relatively quite ill. Right-sided pneumothorax has resolved completely Will continue to follow Time with Patient: Less than 30
[2024-12-10] MEDS: FUROSEMIDE 10 MG/ML 4 ML VIAL IV STA (14:06)
[2024-12-10 14:31] LABS: Appearance,Urine Cloudy (Clear); Bilirubin,Urine Negative (Negative); Blood,Urine Negative (Negative); Color,Urine Colorless; Glucose,Urine (UA) Negative (Negative); Ketones,Urine Negative (Negative); Leukocyte Esterase,Urine Negative (Negative); Nitrite,Urine Negative (Negative); Protein,Urine Trace (Negative); RBC,Urine 1 /hpf (0-5); Specific Gravity,Urine 1.015 (1.001-1.035); Uric Acid Crystals,Urine Occasional /hpf; Urobilinogen,Urine <2.0 mg/dL (<2.0); WBC,Urine 1 /hpf (0-5)
[2024-12-11 05:14] LABS: HCT 24.8 % (39.0-53.0); HGB 8.1 gm/dL (13.0-17.5); Hypochromasia Slight; MCHC 32.6 g/dL (31.0-37.0); MCV 104.2 fL (80.0-100.0); Macrocytosis Moderate; Mean Platelet Volume 8.3; Platelet Count 140 k/uL (150-450); RBC 2.38 m/uL (4.30-5.90); RDW 15.1 % (11.5-15.5); WBC 5.2 k/uL (3.8-10.6)
[2024-12-11 06:04] LABS: African American GFR (CKD) 36 (>60 ml/min/1.73 sqM); Anion Gap 11 mmol/L; Blood Urea Nitrogen 32 mg/dL (9-20); Carbon Dioxide 24 mmol/L (22-30); Chloride 112 mmol/L (98-107); Glucose 103 mg/dL (74-99); Magnesium 1.9 mg/dL (1.6-2.3); Non-African American GFR(CKD) 31 (>60 ml/min/1.73 sqM); Potassium 3.8 mmol/L (3.5-5.1); Sodium 147 mmol/L (137-145)
--- NOTE | 2024-12-11 09:23 | XR ---
EXAMINATION TYPE: XR chest 1V portable DATE OF EXAM: 12/11/2024 CLINICAL INDICATION: Male, 79 years old with history of pleural effusion, progress study. TECHNIQUE: Single AP portable upright view of the chest is obtained. COMPARISON: Chest x-ray one day earlier and older studies. FINDINGS: Persistent right apical pleural drainage catheter without pneumothorax seen on current miller dy. Persistent mild cardiomegaly with small left pleural effusion and moderate-sized right pleural effus ion. Prominent left apical pleural thickening redemonstrated. Surgical change in right humerus is par tially imaged. No pneumothorax seen on current study. Right greater than left Bilateral increased opa cities are redemonstrated. IMPRESSION: Persistent cardiomegaly and small left pleural effusion with at least moderate sized righ t pleural effusion and central vascular congestion are all redemonstrated. Correlate for CHF exacerba tion/fluid overload state. [facility], , 12/11/2024 9:21 AM
--- NOTE | 2024-12-11 10:34 | P.PN ---
Subjective Patient is seen in follow-up for acute kidney injury. Renal function fairly stable. Sodium level 147. Oral intake is poor. Has been voiding. Family present at bedside. Vital signs are stable. General: No acute distress. HEENT: Head exam is unremarkable. On nasal cannula. LUNGS: No audible rhonchi or wheezes. HEART: Rate and Rhythm are regular. ABDOMEN: Nontender. EXTREMITITES: No edema. Objective - Vital Signs Vital signs: Vital Signs Temp 97.0 F L 12/11/24 03:55 Pulse 93 12/11/24 03:55 Resp 26 H 12/11/24 03:55 BP 131/66 12/11/24 03:55 Pulse Ox 90 L 12/11/24 03:55 FiO2 3 12/07/24 11:00 Intake & Output 12/10/24 12/11/24 12/11/24 18:59 06:59 18:59 Intake Total 20 20 Output Total 1000 750 Balance -980 -730 Intake: IV 20 20 Invasive Line 3 20 20 Output: Urine 1000 750 Other: Voiding Method External Catheter External Catheter - Labs CBC & Chem 7: 12/11/24 04:52 12/11/24 04:52 Labs: Abnormal Lab Results - Last 24 Hours (Table) 12/10/24 12/10/24 12/11/24 Range/Units 10:18 14:20 04:52 RBC 2.38 L (4.30-5.90) m/uL Hgb 8.1 L (13.0-17.5) gm/dL Hct 24.8 L (39.0-53.0) % MCV 104.2 H (80.0-100.0) fL Plt Count 140 L (150-450) k/uL Sodium (137-145) mmol/L Chloride 111 H (98-107) mmol/L BUN 31 H (9-20) mg/dL Creatinine 1.82 H (0.66-1.25) mg/dL Glucose (74-99) mg/dL Urine Protein Trace H (Negative) Uric Acid Crystals Occasional H (None) /hpf 12/11/24 Range/Units 04:52 RBC (4.30-5.90) m/uL Hgb (13.0-17.5) gm/dL Hct (39.0-53.0) % MCV (80.0-100.0) fL Plt Count (150-450) k/uL Sodium 147 H (137-145) mmol/L Chloride 112 H (98-107) mmol/L BUN 32 H (9-20) mg/dL Creatinine 1.99 H (0.66-1.25) mg/dL Glucose 103 H (74-99) mg/dL Urine Protein (Negative) Uric Acid Crystals (None) /hpf Microbiology - Last 24 Hours (Table) 12/05/24 19:26 Blood Culture - Final Blood 12/06/24 15:30 Gram Stain - Final Pleural Fluid Body Fluid Culture - Final Assessment and Plan Plan: Assessment: 1. Acute kidney injury secondary to ATN. No hydronephrosis noted on imaging. UA fairly benign. Creatinine 1.4 on admission and is 1.99 today. Creatinine in July 2024 was 0.8. 2. Hypernatremia from lack of oral water intake. 3. Volume overload with pleural effusions. 4. Multiple myeloma. 5. Hypercalcemia secondary to volume contraction as well as multiple myeloma. 6. Pneumonia on antibiotics. 7. Anemia. Due to underlying multiple myeloma. Rule out iron deficiency. Plan: Add D5W at 50 cc an hour. Encouraged oral intake, including free water. Add Lasix 20 mg once daily. Avoid nephrotoxins. Continue to monitor renal function and urine output. Check iron studies.
--- NOTE | 2024-12-11 10:36 | P.PN ---
Subjective patient is 79-year-old gentleman with past medical history significant for multiple myeloma, hypertension, hyperlipidemia presented to the ER because of abnormal labs. Patient normally sees Dr. Broderick and was on systemic treatment which apparently had stopped taking. Patient had blood work drawn outpatient and was told by the employee training specialist to come to the ER. Patient states over the last couple of days he has been having increasing shortness of breath. Shortness of breath was present at rest as on exertion. Patient was complaining of being lethargic and weakness. Patient also complaining of productive cough with occasional episodes of hemoptysis. Denies any chest pain. There is no complaint of fever or chills. There is no complaint of orthopnea or PND. Patient denies any nausea, vomiting, pain. Patient denies any lightheaded or dizziness. Initial lab work done in the ER showed WBC 3.8, hemoglobin 9, platelet count 134 sodium 142, potassium 4, BUN 40, creatinine 1.40 glucose 103, lactate 1.2, calcium 10.5, magnesium 1.4 bilirubin 0.7, AST 27, ALT 11, troponin 0.018, proBNP 1550 Influenza A not detected Influenza B not detected RSV not detected COVID-19 not detected EKG done in the ER showed heart rate of , no ST segment elevation or depression seen, no T-wave inversions seen. Chest x-ray done in the ER showed patchy infiltrative opacity throughout the right lung with small to moderate size right pleural effusion. Questionable air-fluid level versus overlying skinfold is indeterminate for cavitary lesion or abscess. Recommend CT chest for further evaluation, consolidation in the left lung apex CT chest PE protocol done showed no definite acute PE within the vasculature, significant progression of metastatic disease with numerous pleural-based metastatic deposits and involvement of the left-sided ribs additionally there is peritoneal carcinomatosis in the partially visualized upper abdomen. Patient admitted to internal medicine service 12/07. Patient seen and examined. Status post right-sided thoracentesis with removal of 720 cc of fluid. Blood work done today showed WBC 4.9, hemoglobin 8.8, platelet count 138, sodium 143, potassium 4.1, BUN 33, creatinine 1.74, calcium 9.7 Patient had right-sided Thora vent placed this morning. Currently on 4 L of oxygen. 12/08. Patient seen and examined. Vital signs done this morning showedTemp 98, heart rate 98, respirations 30, blood pressure 125/84, currently on 2 L of oxygen. Denies any shortness of breath at rest. Currently has a Thora vent in place. Chest x-ray done this morning shows right-sided pleural effusion, right- sided chest tube in place with residual pneumothorax. 12/09. Old male patient currently sleeping, he was agitated and restless overnight and he was prescribed Seroquel 25 mg which made him calm He still tachypneic with a breathing rate around 28, he is saturating high 90s on 3 L oxygen via nasal cannula Hemoglobin slightly trending down to 7.7 and creatinine up to 1.9 His proBNP is 1550 and procalcitonin negative at 0.16 Chest x-ray reviewed by myself showing right more than left infiltrate but looks better than 2 days ago Renal ultrasound showing no hydronephrosis finger right renal cyst He is currently kept on Zosyn. On home dose of Eliquis 2.5 mg. He had pneumothorax on the right side status post Thora vent, currently he has minimal discharge from his right Thora vent 12/10 Patient moved out of the ICU to select unit He is more awake today but still confused, he was trying to pull out his lines and Thora vent. He is mildly tachypneic with talking. He can tell he is in the hospital but also still mildly confused. Serevent was Today. Repeat chest x-ray showing mild improvement in the right pneumothorax, I reviewed the chest x-ray by myself. He remains on Zosyn and home dose of Eliquis 2.5 Will going to add small dose of Seroquel 12.5. 12/11 Patient more awake trying to talk Still feel short of breath although slightly better than yesterday, breathing rate around 22 compared to 28 yesterday, his right upper chest Thora vent is in place and capped Repeat chest x-ray this morning showing right pleural effusion more than left with pulmonary vascular congestion suspicious for CHF. Currently patient off IV fluid He is on Zosyn and Eliquis 2.5 mg. Review of systems CONSTITUTIONAL: No fever, no malaise, no fatigue. HEMATOLOGICAL: Denies any bleeding or petechiae. GENITOURINARY: Denies any burning micturition, frequency, or urgency. MUSCULOSKELETAL/RHEUMATOLOGICAL: Denies any joint pain, swelling, or any muscle pain. ENDOCRINE: Denies any polyuria or polydipsia. Active Medications Generic Name Dose Route Start Last Admin Trade Name Freq PRN Reason Stop Dose Admin Albuterol/Ipratropium 3 ml 12/05/24 18:42 12/07/24 01:50 Ipratropium-Albuterol 3 Ml Neb INHALATION 3 ml RT-Q4H PRN Administration shortness of breath Amiodarone HCl 200 mg 12/07/24 12:30 12/11/24 08:28 Amiodarone 200 Mg Tab PO 200 mg BID VIKY Administration Famotidine 10 mg 12/11/24 21:00 Famotidine 20 Mg Tab PO BID VIKY Furosemide 20 mg 12/11/24 10:45 Furosemide 20 Mg Tab PO DAILY VIKY Piperacillin Sod/Tazobactam 100 mls @ 25 mls/hr 12/06/24 03:00 12/11/24 03:57 Sod 3.375 gm/ Sodium Chloride IVPB 25 mls/hr Q8H VIKY Administration Protocol Sodium Chloride 1,000 mls @ 25 mls/hr 12/09/24 11:30 12/10/24 18:05 Saline 0.9% IV Not Given .Q24H VIKY Dextrose/Water 1,000 mls @ 50 mls/hr 12/11/24 10:45 Dextrose 5%-Water Iv Soln IV .Q20H VIKY Metoprolol Succinate 50 mg 12/07/24 09:00 12/11/24 08:28 Metoprolol Succinate (Er) 50 Mg Tab.Er.24h PO 50 mg DAILY VIKY Administration Miscellaneous Information 1 each 12/05/24 18:42 Pneumonia Protocol Utilized 1 Each Misc PO ONCE PRN Per Protocol Miscellaneous Information 1 each 12/08/24 06:49 Potassium Replacement Protocol 1 Each Misc MISCELLANE DAILY PRN Per Protocol Protocol Quetiapine Fumarate 25 mg 12/09/24 04:05 12/10/24 20:07 Quetiapine 25 Mg Tab PO 25 mg BID PRN Administration Agitation or Acute Psychosis Quetiapine Fumarate 12.5 mg 12/10/24 09:58 Quetiapine 25 Mg Tab PO DAILY PRN Agitation Objective - Vital Signs Vital signs: Vital Signs Temp 98.2 F 12/11/24 08:25 Pulse 94 12/11/24 08:25 Resp 22 12/11/24 08:25 BP 147/74 12/11/24 08:25 Pulse Ox 92 L 12/11/24 08:25 FiO2 3 12/07/24 11:00 Intake & Output 12/10/24 12/11/24 12/11/24 18:59 06:59 18:59 Intake Total 20 20 220 Output Total 1000 750 Balance -980 -730 220 Intake: IV 20 20 Invasive Line 3 20 20 Intake, IV Titration 100 Amount Piperacillin-Tazobactam 3 100 .375 gm In Sodium Chloride 0.9% 100 ml @ 25 mls/hr IVPB Q8H [facility] Rx#: [id number] Oral 120 Output: Urine 1000 750 Other: Voiding Method External Catheter External Catheter External Catheter - Exam -GENERAL: The patient is sleepy, not in any acute distress. Well developed, well nourished. HEENT: Pupils are round and equally reacting to light. EOMI. No scleral icterus. No conjunctival pallor. Normocephalic, atraumatic. No pharyngeal erythema. No thyromegaly. CARDIOVASCULAR: S1 and S2 present. No murmurs, rubs, or gallops. -PULMONARY: Chest is clear to auscultation, no wheezing , no crackles. Tachypneic, decreased breath sounds on the right side ABDOMEN: Soft, nontender, nondistended, normoactive bowel sounds. No palpable organomegaly. MUSCULOSKELETAL: No joint swelling or deformity. EXTREMITIES: No cyanosis, clubbing, or pedal edema. NEUROLOGICAL: Gross neurological examination did not reveal any focal deficits. SKIN: No rashes. no petechiae. Transfer to - Labs CBC & Chem 7: 12/11/24 04:52 12/11/24 04:52 Labs: Abnormal Lab Results - Last 24 Hours (Table) 12/10/24 12/10/24 12/11/24 Range/Units 10:18 14:20 04:52 RBC 2.38 L (4.30-5.90) m/uL Hgb 8.1 L (13.0-17.5) gm/dL Hct 24.8 L (39.0-53.0) % MCV 104.2 H (80.0-100.0) fL Plt Count 140 L (150-450) k/uL Sodium (137-145) mmol/L Chloride 111 H (98-107) mmol/L BUN 31 H (9-20) mg/dL Creatinine 1.82 H (0.66-1.25) mg/dL Glucose (74-99) mg/dL Urine Protein Trace H (Negative) Uric Acid Crystals Occasional H (None) /hpf 12/11/24 Range/Units 04:52 RBC (4.30-5.90) m/uL Hgb (13.0-17.5) gm/dL Hct (39.0-53.0) % MCV (80.0-100.0) fL Plt Count (150-450) k/uL Sodium 147 H (137-145) mmol/L Chloride 112 H (98-107) mmol/L BUN 32 H (9-20) mg/dL Creatinine 1.99 H (0.66-1.25) mg/dL Glucose 103 H (74-99) mg/dL Urine Protein (Negative) Uric Acid Crystals (None) /hpf Microbiology - Last 24 Hours (Table) 12/05/24 19:26 Blood Culture - Final Blood 12/06/24 15:30 Gram Stain - Final Pleural Fluid Body Fluid Culture - Final Assessment and Plan Assessment: Large pleural effusion status post thoracocentesis. Repeat chest x-ray showing bilateral pleural effusion right more than left and pulmonary vascular congestion Iatrogenic right pneumothorax status post Thora vent placement Acute hypoxic respiratory failure Multiple myeloma Acute kidney injury Hypercalcemia Chronic anemia Hypertension Hyperlipidemia Obstructive sleep apnea A-fib and RVR Plan: Continue with Zosyn Continue with home dose of Eliquis Continue with the breathing treatment Pulmonary/cardiology team consult Renal ultrasound is reviewed which was basically unremarkable and hematology collagen and nephrology team are also on consult DVT prophylaxis: Eliquis GI prophylaxis: Pepcid Prognosis is guarded
[2024-12-11] MEDS: FUROSEMIDE 20 MG TAB PO SCH (11:58)
[2024-12-11] MEDS: DEXTROSE 5% IN WATER 1,000 ML IV SCH (12:12)
--- NOTE | 2024-12-11 13:26 | XR ---
EXAMINATION TYPE: XR chest 1V portable DATE OF EXAM: 12/11/2024 CLINICAL INDICATION: Male, 79 years old with history of Pneumothorax, progress study. TECHNIQUE: Single AP portable upright view of the chest is obtained. COMPARISON: Chest x-ray from earlier today and older studies FINDINGS: Persistent right apical pleural drainage catheter without pneumothorax seen. Persistent cardiomegaly with small left pleural effusion and moderate-sized right pleural effusion. Prominent left apical pleural thickening redemonstrated. Surgical change in right humerus is partiall y imaged. Right greater than left Bilateral increased opacities are redemonstrated. IMPRESSION: Persistent cardiomegaly and small left pleural effusion with at least moderate size right pleural effusion and central vascular congestion are all redemonstrated. Correlate for continued CHF exacerbation/fluid overload state. [facility], , 12/11/2024 1:24 PM
--- NOTE | 2024-12-11 13:35 | P.PN ---
Subjective Progress Note Date: 12/11/24 Principal diagnosis: Pneumonia. Patient is a 79-year-old male with past medical history significant for hypertension, hyperlipidemia, KYM, multiple myeloma. His PCP is Dr. Jaimes. Also, follows with his oncologist Dr. Broderick. Patient had a bone marrow biopsy back on 11/11/2023 which was positive for multiple myeloma. Previously on systemic treatment, which he had stopped, apparently confused on whether he should continue the medication. Patient sent in by his oncologist yesterday for abnormal labs. On arrival, complaining of increased work of breathing over the last month. Occasional cough with mucus and occasional blood tinge. Workup in the ED including a chest CT angio which did not show any definite acute central pulmonary embolism, but technically limited due to suboptimal timing of contrast bolus. Overall, findings were consistent with disease progression. There was extensive soft tissue pleural metastatic deposits throughout bilateral lung henderson right greater than left. Extensive pleural metastatic disease in the left apex with involvement of the left first, second, and third ribs. Large right-sided pleural effusion and trace left-sided pleural effusion. Partially visualized upper abdomen demonstrating peritoneal carcinomatosis with large soft tissue implant in the left retroperitoneum measuring 6.4 x 4.1 cm. Bilateral hydronephrosis partially visualized. Enlarged retroperitoneal lymph node. Extensive osteolytic lesions throughout the visualized axial and appendicular skeleton compatible with osseous metastatic disease. CBC: WBC count 3.8, hemoglobin 9, platelets 134. CMP: Sodium 142, potassium 4, chloride 107, serum bicarb 21, BUN 40, creatinine 1.4, glucose 103. Lactic 1.2. Ionized calcium 5.4, magnesium 1.4, phosphorus 3.7. LFTs not elevated. Troponin 0.018. NT proBNP 1550. Viral screen negative for influenza, RSV, COVID. Patient currently being seen on the oncology floor. He is awake and alert, on 3 L/min nasal cannula, tachypneic in the mid 20s per minute. States he has been progressively more short of breath over the last month. States he uses 2 L supplemental oxygen hooked to his CPAP at bedtime. Denies chest pain, heart palpitations, lightheadedness or syncopal events, lower extremity edema. Does r eport occasional productive cough with brown mucus and occasional blood tinge. Denies any fevers, chills, chest pain, olivia hemoptysis. Denies known sick contacts. Appetite has been poor. Denies abdominal pain, nausea, vomiting, diarrhea, melena, hematochezia. Denies anticoagulant use. Denies history of previous thoracentesis. Patient was empirically covered on a combination of Zosyn and Levaquin in the ED. Current vital signs: Temperature 97.9 F, heart rate 100 bpm, blood pressure 145/66 mmHg, SpO2 recorded at 94% on 2 L/min nasal cannula. Patient was seen today on 12/07/2024, I had to move the patient earlier this morning to ICU as his right-sided pneumothorax showed some progression went from 10% to 30% overnight. Came into the ICU, and placed a Thora vent, 13 Khmer in the right pleural space with complete resolution of his right-sided pneumothorax. And more bloody effusion was drained through the Thora vent shortly after the Thora vent was placed. Again there was complete resolution of his pneumothorax, and almost near complete resolution of his pleural effusion which was bloody all along. Patient is now on 4 L nasal cannula, in no distress, he is off heparin, and considering the bloody effusion, I will hold on anticoagulation therapy for now. Patient remains on amiodarone, bronchodilators/updrafts, he is also on Zosyn and Levaquin empirically. WBC count is 4.4 hemoglobin 8.5 electrolytes are normal BUN is 33 creatinine 1.74. The fluid I drained yesterday is clearly exudative with high LDH of 1400 and protein more than 3600 this is likely consistent with malignant pleural effusion most likely related to his multiple myeloma. Patient was seen today on 12/08/2024, remains in the ICU, continues to have Thora vent in place, patient had over 1200 cc of bloody effusion drained over the last 24 hours, and prior to this I have drained over 700 cc initially and the fluid was also bloody. This is most likely a pleural effusion related to multiple myeloma, cytology is pending. Patient remains empirically on antibiotics, however I went ahead and discontinued Levaquin on this patient, and I kept him on Zosyn as he seems to be developing some worsening of his renal status, patient is clinically dry dehydrated, and I am recommending increase of his IV f luid. Hemoglobin is 7.7 WBC count is 4.7 electrolytes are normal however creatinine went up to 1.92 from 1.74 yesterday, baseline on admission was 1.40. Patient remains off heparin mostly because of his bloody effusion, patient is on 3 L nasal cannula with O2 sats of 96%. Chest x-ray today was reviewed, I did not truly appreciate a pneumothorax on the chest x-ray today, and hardly any air leak is noted. Patient was seen today on 12/09/2024, remains in the ICU, continues to have Thora vent in place, and connected to Pleur-evac. No airleak is noted, minimal drainage overnight, less than 50 cc. No further air leak is noted, hence I went ahead and disconnected the Thora vent from Pleur-evac, and applied the one-way valve on the Thora vent. Patient is doing well, relatively asymptomatic, remains on IV fluid at 75 cc/h with slight improvement in his renal status, renal ultrasound showed no evidence of hydronephrosis. Patient remains on Zosyn, Eliquis is on hold, he is also on Seroquel. Chest x-ray will be repeated sometime later today to make sure the patient does not have any expansion of pneumothorax in the right lung. Continues to have some right lower lobe consolidation,, patient remains on antibiotics. The results on the pleural effusion are pending especially the cytology, the protein in the pleural effusion and the LDH suggest that it is malignant unless proven otherwise., It is definitely exudative. WBC count is 4.5 hemoglobin 7.4 electrolytes are normal BUN is 41 creatinine 1.75. Platelets are 1 27,000. Seen today on 12/10/2024, patient is now on medical floor, very comfortable, on 3 L nasal cannula, not in distress. Patient is hemodynamically stable blood pressure is 128/65, heart rate is 84, patient is afebrile. Temp is 97.6. Chest x-ray this morning was read by the ER physician as a left-sided pneumothorax which I reviewed myself, and I fully disagreed with the reading, this would have been a spontaneous left-sided pneumothorax, however follow-up chest x-ray was done and there was no evidence of pneumothorax on the left side. But both x-rays did reflect evidence of fluid overload and pulmonary edema with bilateral pleural effusions, has I recommended diuresing the patient further today. Yesterday he responded well to Lasix, and I am recommending another dose of Lasix 40 mg IV push to be given today. His Thora vent remains off suction, but he does have the one-way valve/occluding valve. And there is no evidence of pneumothorax on the right side. But again I believe the patient is building bilateral pleural effusions again. Cytology from his pleural effusion which I drained back on 12/07 is still pending I expect it to be related to multiple myeloma. Labs today showed relatively normal electrolytes BUN is 31 creatinine is up to 1.82 Progress note dated December 11, 2024. 79-year-old male seen today in room 363. The patient appears to. He was diagnosed with pneumonia on admission. He is currently on 3 L of oxygen. He is getting Zosyn, and is getting saline at 10 cc an hour. The patient had a right pneumothorax, and had a right Thora vent placed. The patient has a history of multiple myeloma, with acute mental status changes, possibly related to hypercalcemia. Apparently the patient was off his myeloma medications for a period of time. Current laboratory data includes a white count 5.2, hemoglobin 8.1, hematocrit 24.8, and a platelet count of 140,000. Sodium 147, potassium 3.8, chlorides 112, CO2 24, anion gap 11, BUN 32, creatinine 1.99. Glucose is 103. Calcium is 10. Magnesium is 1.9. Pleural fluid sampling has thus far negative. Chest x-ray shows persistent cardiomegaly, small left-sided pleural effusion, and a larger right sided effusion. Objective - Vital Signs Vital signs: Vital Signs Temp 98.4 F 12/11/24 12:15 Pulse 87 12/11/24 12:15 Resp 20 12/11/24 12:15 BP 124/69 12/11/24 12:15 Pulse Ox 97 12/11/24 12:15 FiO2 3 12/07/24 11:00 Intake & Output 12/10/24 12/11/24 12/11/24 18:59 06:59 18:59 Intake Total 20 20 220 Output Total 1000 750 Balance -980 -730 220 Weight 84.6 kg Intake: IV 20 20 Invasive Line 3 20 20 Intake, IV Titration 100 Amount Piperacillin-Tazobactam 3 100 .375 gm In Sodium Chloride 0.9% 100 ml @ 25 mls/hr IVPB Q8H [facility] Rx#: [id number] Oral 120 Output: Urine 1000 750 Other: Voiding Method External Catheter External Catheter External Catheter - Exam No acute distress, confused, currently on 3 L by nasal cannula. HEENT examination is grossly unremarkable. Mucous membranes are moist. No oral lesions. Neck supple. Full range of motion. No adenopathy thyromegaly or neck vein distention. Cardiovascular examination reveals regular rhythm rate. S1-S2 normal. No S3 or S4. No discernible murmur noted. Heart sounds are distant. Lungs reveal diminished bilateral breath sounds, right greater than left. A right sided Thora vent device is noted. Scattered rhonchi are appreciated. No crackles. No wheezes. Abdomen soft bowel sounds are heard. No masses or tenderness. Extremities are intact. No cyanosis clubbing or edema. Skin is without rash or lesion. Neurologic examination is brief but nonfocal. - Labs CBC & Chem 7: 12/11/24 04:52 12/11/24 04:52 Labs: Abnormal Lab Results - Last 24 Hours (Table) 12/10/24 12/11/24 12/11/24 Range/Units 14:20 04:52 04:52 RBC 2.38 L (4.30-5.90) m/uL Hgb 8.1 L (13.0-17.5) gm/dL Hct 24.8 L (39.0-53.0) % MCV 104.2 H (80.0-100.0) fL Plt Count 140 L (150-450) k/uL Sodium 147 H (137-145) mmol/L Chloride 112 H (98-107) mmol/L BUN 32 H (9-20) mg/dL Creatinine 1.99 H (0.66-1.25) mg/dL Glucose 103 H (74-99) mg/dL Urine Protein Trace H (Negative) Uric Acid Crystals Occasional H (None) /hpf Microbiology - Last 24 Hours (Table) 12/05/24 19:26 Blood Culture - Final Blood 12/06/24 15:30 Gram Stain - Final Pleural Fluid Body Fluid Culture - Final Assessment and Plan Assessment: Acute hypoxemic respiratory failure, multifactorial. S/P right sided thoracentesis, with a right-sided iatrogenic pneumothorax. S/P right Thora vent placement. Multiple myeloma. Acute kidney injury with bilateral hydronephrosis. Hypocalcemia. Chronic anemia. Hypertension. History of hyperlipidemia. History of obstructive sleep apnea syndrome, maintained on CPAP. Possible right lower lobe pneumonia. Plan: Plan dated December 11, 2024. The patient is seen today in room 363. He currently is on 3 L of oxygen. No respiratory distress. He sustained a right pneumothorax after thoracentesis. Right Thora vent device is in place. The Thora vent device will be capped. Currently he is got a one-way valve on the Thora vent device. He continues on Zosyn. He is getting saline at 10 cc an hour. The patient will have a repeat chest x-ray at 1:00 today. Additional recommendations and suggestions are forthcoming. Should his lungs stay expanded, the Thora vent device will be r emoved. Clinically, the patient is not in any respiratory distress. He is very confused. Family members are in the room. Findings are discussed. Time with Patient: Less than 30
--- NOTE | 2024-12-11 16:07 | P.PN ---
Subjective Progress Note Date: 12/11/24 Patient more confused at today's visit. Pt has rectal tube in place, persisting diarrhea. C-diff testing ordered. Wbc 5.2, hgb 8.1, plt 140. Calcium 10.0. Pt afebrile Objective - Vital Signs Vital signs: Vital Signs Temp 98.2 F 12/11/24 08:25 Pulse 94 12/11/24 08:25 Resp 22 12/11/24 08:25 BP 147/74 12/11/24 08:25 Pulse Ox 92 L 12/11/24 08:25 FiO2 3 12/07/24 11:00 Intake & Output 12/10/24 12/11/24 12/11/24 18:59 06:59 18:59 Intake Total 20 20 220 Output Total 1000 750 Balance -980 -730 220 Intake: IV 20 20 Invasive Line 3 20 20 Intake, IV Titration 100 Amount Piperacillin-Tazobactam 3 100 .375 gm In Sodium Chloride 0.9% 100 ml @ 25 mls/hr IVPB Q8H [facility] Rx#: [id number] Oral 120 Output: Urine 1000 750 Other: Voiding Method External Catheter External Catheter External Catheter - Constitutional General appearance: Present: no acute distress - EENT Eyes: Present: anicteric sclerae, EOMI - Respiratory Details: breathing is even and unlabored - Cardiovascular Details: skin warm and dry - Gastrointestinal General gastrointestinal: Present: distended. Absent: tenderness - Integumentary Integumentary: Absent: cyanotic - Neurologic Neurologic Comment(s): confused - Labs CBC & Chem 7: 12/11/24 04:52 12/11/24 04:52 Labs: Abnormal Lab Results - Last 24 Hours (Table) 12/10/24 12/11/24 12/11/24 Range/Units 14:20 04:52 04:52 RBC 2.38 L (4.30-5.90) m/uL Hgb 8.1 L (13.0-17.5) gm/dL Hct 24.8 L (39.0-53.0) % MCV 104.2 H (80.0-100.0) fL Plt Count 140 L (150-450) k/uL Sodium 147 H (137-145) mmol/L Chloride 112 H (98-107) mmol/L BUN 32 H (9-20) mg/dL Creatinine 1.99 H (0.66-1.25) mg/dL Glucose 103 H (74-99) mg/dL Urine Protein Trace H (Negative) Uric Acid Crystals Occasional H (None) /hpf Microbiology - Last 24 Hours (Table) 12/05/24 19:26 Blood Culture - Final Blood 12/06/24 15:30 Gram Stain - Final Pleural Fluid Body Fluid Culture - Final Assessment and Plan (1) Hypercalcemia Current Visit: Yes Status: Acute Priority: High Code(s): E83.52 - HYPERCALCEMIA SNOMED Code(s): 33911483 (2) Chillum light chain myeloma Current Visit: Yes Status: Acute Priority: High Code(s): C90.00 - MULTIPLE MYELOMA NOT HAVING ACHIEVED REMISSION SNOMED Code(s): 572590109 (3) New onset atrial fibrillation Current Visit: Yes Status: Acute Code(s): I48.91 - UNSPECIFIED ATRIAL FIBRILLATION SNOMED Code(s): 09552543 Plan: 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 -Completed 7 cycles of RVD in May 2024 achieving very good partial response with 99% reduction in kappa light chain -Had been on maintenance Revlimid 10 mg daily, which he stopped taking September 2024 for unclear reasons, he then developed progressive disease and symptoms of weakness, MICKEY, anemia, and thrombocytopenia -Admitted with failure to thrive with weakness, dehydration -CTA ruled out PE but reported pleural-based nodules with large right sided pleural effusion, peritoneal carcinomatosis, and retroperitoneal lymphadenopathy -720cc Right-sided thoracentesis performed, post procedure pneumo, thoravent placed. Resp status improving -Pending cytology on pleural fluid -As long as there is no evidence of new primary malignancy, plan will be to kevan t with 1 cycle of CyBorD inpatient to achieve disease control -Once he is outpatient, he can be transitioned back to oral Revlimid as his initial disease responded very well to Revlimid and did not progress on this Hypercalcemia -Noted to have calcium of 10.5 on admission -Due to relapsed multiple myeloma -Received IV fluids with no significant elevation in his calcium subsequently -For now, we will hold off on bisphosphonate and continue to assess calcium -If he has progressive rise in calcium, bisphosphonate can be given Doctor attests: I performed a history and physical examination of this patient, developed impression and plan of care. Discussed with dictator. I agree with dictators note, documented as a scribe.
[2024-12-11 16:54] LABS: % Iron Saturation 13.95 (15.00-50.00)
[2024-12-11] MEDS: FAMOTIDINE 20 MG TAB PO SCH (20:40)
[2024-12-12 08:00] LABS: African American GFR (CKD) 35 (>60 ml/min/1.73 sqM); Anion Gap 10 mmol/L; Blood Urea Nitrogen 34 mg/dL (9-20); Calcium 9.9 mg/dL (8.4-10.2); Carbon Dioxide 24 mmol/L (22-30); Chloride 111 mmol/L (98-107); Glucose 104 mg/dL (74-99); Magnesium 1.9 mg/dL (1.6-2.3); Non-African American GFR(CKD) 30 (>60 ml/min/1.73 sqM); Potassium 3.8 mmol/L (3.5-5.1); Sodium 145 mmol/L (137-145)
--- NOTE | 2024-12-12 10:17 | P.PN ---
Subjective Patient is seen in follow-up for acute kidney injury. Renal function fairly stable. Sodium level 145. Oral intake is poor. Has been voiding. Poor historian. Vital signs are stable. General: No acute distress. HEENT: Head exam is unremarkable. On nasal cannula. LUNGS: No audible rhonchi or wheezes. HEART: Rate and Rhythm are regular. ABDOMEN: Nontender. EXTREMITITES: No edema. Objective - Vital Signs Vital signs: Vital Signs Temp 97.9 F 12/12/24 08:25 Pulse 95 12/12/24 08:25 Resp 22 12/12/24 08:25 BP 142/63 12/12/24 08:25 Pulse Ox 95 12/12/24 08:25 FiO2 3 12/07/24 11:00 Intake & Output 12/11/24 12/12/24 12/12/24 18:59 06:59 18:59 Intake Total 220 Output Total 400 425 Balance -180 -425 Weight 84.6 kg Intake: Intake, IV Titration 100 Amount Piperacillin-Tazobactam 3 100 .375 gm In Sodium Chloride 0.9% 100 ml @ 25 mls/hr IVPB Q8H [facility] Rx#: [id number] Oral 120 Output: Urine 400 425 Other: Voiding Method External Catheter External Catheter External Catheter # Voids 2 # Bowel Movements 1 - Labs CBC & Chem 7: 12/11/24 04:52 12/12/24 07:12 Labs: Abnormal Lab Results - Last 24 Hours (Table) 12/11/24 12/12/24 Range/Units 04:52 07:12 Chloride 111 H (98-107) mmol/L BUN 34 H (9-20) mg/dL Creatinine 2.03 H (0.66-1.25) mg/dL Glucose 104 H (74-99) mg/dL Iron 36 L (65-175) UG/DL % Saturation 13.95 L (15.00-50.00) Transferrin 184.0 L (204.0-354.0) mg/dL Ferritin 989.0 H (22.0-322.0) ng/mL Assessment and Plan Plan: Assessment: 1. Acute kidney injury secondary to ATN. No hydronephrosis noted on imaging. UA fairly benign. Creatinine 1.4 on admission and is fairly stable at 2.03 today. Creatinine in July 2024 was 0.8. 2. Hypernatremia from lack of oral water intake. Better with D5W. 3. Volume overload with pleural effusions. On Lasix. 4. Multiple myeloma. 5. Hypercalcemia secondary to volume contraction as well as multiple myeloma. 6. Pneumonia on antibiotics. 7. Anemia. Due to underlying multiple myeloma. Iron deficiency noted. Plan: Maintain D5W. Encouraged oral intake, including free water. Maintain Lasix. Increase frequency to twice daily. Add IV iron. Avoid nephrotoxins. Continue to monitor renal function and urine output.
--- NOTE | 2024-12-12 10:20 | XR ---
EXAMINATION TYPE: XR chest 1V portable DATE OF EXAM: 12/12/2024 CLINICAL INDICATION: Male, 79 years old with history of Pneumothorax, progress study. COMPARISON: Chest x-ray from earlier today and older studies FINDINGS: Persistent right apical pleural drainage catheter without pneumothorax seen. Persistent cardiomegaly with small to moderate-size right greater than left pleural effusions. Promin ent left apical pleural thickening redemonstrated. Right greater than left Bilateral lower lung incre ased opacities are redemonstrated. Central vascular congestion again seen. IMPRESSION: Persistent cardiomegaly and small to moderate size right greater than left pleural effusi ons and central vascular congestion are all redemonstrated. Correlate for continued CHF exacerbation/ fluid overload state. No significant change from one day earlier. [facility], , 12/12/2024 10:18 AM
--- NOTE | 2024-12-12 11:28 | P.PN ---
Subjective Progress Note Date: 12/12/24 Principal diagnosis: Pneumonia. Patient is a 79-year-old male with past medical history significant for hypertension, hyperlipidemia, KYM, multiple myeloma. His PCP is Dr. Jaimes. Also, follows with his oncologist Dr. Broderick. Patient had a bone marrow biopsy back on 11/11/2023 which was positive for multiple myeloma. Previously on systemic treatment, which he had stopped, apparently confused on whether he should continue the medication. Patient sent in by his oncologist yesterday for abnormal labs. On arrival, complaining of increased work of breathing over the last month. Occasional cough with mucus and occasional blood tinge. Workup in the ED including a chest CT angio which did not show any definite acute central pulmonary embolism, but technically limited due to suboptimal timing of contrast bolus. Overall, findings were consistent with disease progression. There was extensive soft tissue pleural metastatic deposits throughout bilateral lung henderson right greater than left. Extensive pleural metastatic disease in the left apex with involvement of the left first, second, and third ribs. Large right-sided pleural effusion and trace left-sided pleural effusion. Partially visualized upper abdomen demonstrating peritoneal carcinomatosis with large soft tissue implant in the left retroperitoneum measuring 6.4 x 4.1 cm. Bilateral hydronephrosis partially visualized. Enlarged retroperitoneal lymph node. Extensive osteolytic lesions throughout the visualized axial and appendicular skeleton compatible with osseous metastatic disease. CBC: WBC count 3.8, hemoglobin 9, platelets 134. CMP: Sodium 142, potassium 4, chloride 107, serum bicarb 21, BUN 40, creatinine 1.4, glucose 103. Lactic 1.2. Ionized calcium 5.4, magnesium 1.4, phosphorus 3.7. LFTs not elevated. Troponin 0.018. NT proBNP 1550. Viral screen negative for influenza, RSV, COVID. Patient currently being seen on the oncology floor. He is awake and alert, on 3 L/min nasal cannula, tachypneic in the mid 20s per minute. States he has been progressively more short of breath over the last month. States he uses 2 L supplemental oxygen hooked to his CPAP at bedtime. Denies chest pain, heart palpitations, lightheadedness or syncopal events, lower extremity edema. Does r eport occasional productive cough with brown mucus and occasional blood tinge. Denies any fevers, chills, chest pain, olivia hemoptysis. Denies known sick contacts. Appetite has been poor. Denies abdominal pain, nausea, vomiting, diarrhea, melena, hematochezia. Denies anticoagulant use. Denies history of previous thoracentesis. Patient was empirically covered on a combination of Zosyn and Levaquin in the ED. Current vital signs: Temperature 97.9 F, heart rate 100 bpm, blood pressure 145/66 mmHg, SpO2 recorded at 94% on 2 L/min nasal cannula. Patient was seen today on 12/07/2024, I had to move the patient earlier this morning to ICU as his right-sided pneumothorax showed some progression went from 10% to 30% overnight. Came into the ICU, and placed a Thora vent, 13 [place] in the right pleural space with complete resolution of his right-sided pneumothorax. And more bloody effusion was drained through the Thora vent shortly after the Thora vent was placed. Again there was complete resolution of his pneumothorax, and almost near complete resolution of his pleural effusion which was bloody all along. Patient is now on 4 L nasal cannula, in no distress, he is off heparin, and considering the bloody effusion, I will hold on anticoagulation therapy for now. Patient remains on amiodarone, bronchodilators/updrafts, he is also on Zosyn and Levaquin empirically. WBC count is 4.4 hemoglobin 8.5 electrolytes are normal BUN is 33 creatinine 1.74. The fluid I drained yesterday is clearly exudative with high LDH of 1400 and protein more than 3600 this is likely consistent with malignant pleural effusion most likely related to his multiple myeloma. Patient was seen today on 12/08/2024, remains in the ICU, continues to have Thora vent in place, patient had over 1200 cc of bloody effusion drained over the last 24 hours, and prior to this I have drained over 700 cc initially and the fluid was also bloody. This is most likely a pleural effusion related to multiple myeloma, cytology is pending. Patient remains empirically on antibiotics, however I went ahead and discontinued Levaquin on this patient, and I kept him on Zosyn as he seems to be developing some worsening of his renal status, patient is clinically dry dehydrated, and I am recommending increase of his IV f luid. Hemoglobin is 7.7 WBC count is 4.7 electrolytes are normal however creatinine went up to 1.92 from 1.74 yesterday, baseline on admission was 1.40. Patient remains off heparin mostly because of his bloody effusion, patient is on 3 L nasal cannula with O2 sats of 96%. Chest x-ray today was reviewed, I did not truly appreciate a pneumothorax on the chest x-ray today, and hardly any air leak is noted. Patient was seen today on 12/09/2024, remains in the ICU, continues to have Thora vent in place, and connected to Pleur-evac. No airleak is noted, minimal drainage overnight, less than 50 cc. No further air leak is noted, hence I went ahead and disconnected the Thora vent from Pleur-evac, and applied the one-way valve on the Thora vent. Patient is doing well, relatively asymptomatic, remains on IV fluid at 75 cc/h with slight improvement in his renal status, renal ultrasound showed no evidence of hydronephrosis. Patient remains on Zosyn, Eliquis is on hold, he is also on Seroquel. Chest x-ray will be repeated sometime later today to make sure the patient does not have any expansion of pneumothorax in the right lung. Continues to have some right lower lobe consolidation,, patient remains on antibiotics. The results on the pleural effusion are pending especially the cytology, the protein in the pleural effusion and the LDH suggest that it is malignant unless proven otherwise., It is definitely exudative. WBC count is 4.5 hemoglobin 7.4 electrolytes are normal BUN is 41 creatinine 1.75. Platelets are 1 27,000. Seen today on 12/10/2024, patient is now on medical floor, very comfortable, on 3 L nasal cannula, not in distress. Patient is hemodynamically stable blood pressure is 128/65, heart rate is 84, patient is afebrile. Temp is 97.6. Chest x-ray this morning was read by the ER physician as a left-sided pneumothorax which I reviewed myself, and I fully disagreed with the reading, this would have been a spontaneous left-sided pneumothorax, however follow-up chest x-ray was done and there was no evidence of pneumothorax on the left side. But both x-rays did reflect evidence of fluid overload and pulmonary edema with bilateral pleural effusions, has I recommended diuresing the patient further today. Yesterday he responded well to Lasix, and I am recommending another dose of Lasix 40 mg IV push to be given today. His Thora vent remains off suction, but he does have the one-way valve/occluding valve. And there is no evidence of pneumothorax on the right side. But again I believe the patient is building bilateral pleural effusions again. Cytology from his pleural effusion which I drained back on 12/07 is still pending I expect it to be related to multiple myeloma. Labs today showed relatively normal electrolytes BUN is 31 creatinine is up to 1.82 Progress note dated December 11, 2024. 79-year-old male seen today in room 363. The patient appears to. He was diagnosed with pneumonia on admission. He is currently on 3 L of oxygen. He is getting Zosyn, and is getting saline at 10 cc an hour. The patient had a right pneumothorax, and had a right Thora vent placed. The patient has a history of multiple myeloma, with acute mental status changes, possibly related to hypercalcemia. Apparently the patient was off his myeloma medications for a period of time. Current laboratory data includes a white count 5.2, hemoglobin 8.1, hematocrit 24.8, and a platelet count of 140,000. Sodium 147, potassium 3.8, chlorides 112, CO2 24, anion gap 11, BUN 32, creatinine 1.99. Glucose is 103. Calcium is 10. Magnesium is 1.9. Pleural fluid sampling has thus far negative. Chest x-ray shows persistent cardiomegaly, small left-sided pleural effusion, and a larger right sided effusion. Progress note dated December 12, 2024. 79-year-old male seen today in room 363. The patient's Thora vent was removed. A repeat chest x-ray has been ordered. He is getting D5W at 50 cc an hour, and nasal O2 at 2 L. A chest x-ray done before the Thora vent was removed, did not reveal a right-sided pneumothorax. The patient's right-sided pleural effusion appears smaller. Current laboratory data includes a sodium 145, potassium 3.8, chlorides 111, CO2 24, anion gap 10, BUN 34, and creatinine 2.03. Glucose is 104. Calcium 9.9, magnesium 1.9. Objective - Vital Signs Vital signs: Vital Signs Temp 97.9 F 12/12/24 08:25 Pulse 95 12/12/24 08:25 Resp 22 12/12/24 08:25 BP 142/63 12/12/24 08:25 Pulse Ox 95 12/12/24 08:25 FiO2 3 12/07/24 11:00 Intake & Output 12/11/24 12/12/24 12/12/24 18:59 06:59 18:59 Intake Total 220 Output Total 400 425 Balance -180 -425 Weight 84.6 kg Intake: Intake, IV Titration 100 Amount Piperacillin-Tazobactam 3 100 .375 gm In Sodium Chloride 0.9% 100 ml @ 25 mls/hr IVPB Q8H [facility] Rx#: [id number] Oral 120 Output: Urine 400 425 Other: Voiding Method External Catheter External Catheter External Catheter # Voids 2 # Bowel Movements 1 - Exam No acute distress, confused, currently on 2 L by nasal cannula. HEENT examination is grossly unremarkable. Mucous membranes are moist. No oral lesions. Neck supple. Full range of motion. No adenopathy thyromegaly or neck vein distention. Cardiovascular examination reveals regular rhythm rate. S1-S2 normal. No S3 or S4. No discernible murmur noted. Heart sounds are distant. Lungs reveal diminished bilateral breath sounds, right greater than left. A right sided Thora vent device is noted. Scattered rhonchi are appreciated. No crackles. No wheezes. Abdomen soft bowel sounds are heard. No masses or tenderness. Extremities are intact. No cyanosis clubbing or edema. Skin is without rash or lesion. Neurologic examination is brief but nonfocal. - Labs CBC & Chem 7: 12/11/24 04:52 12/12/24 07:12 Labs: Abnormal Lab Results - Last 24 Hours (Table) 12/11/24 12/12/24 Range/Units 04:52 07:12 Chloride 111 H (98-107) mmol/L BUN 34 H (9-20) mg/dL Creatinine 2.03 H (0.66-1.25) mg/dL Glucose 104 H (74-99) mg/dL Iron 36 L (65-175) UG/DL % Saturation 13.95 L (15.00-50.00) Transferrin 184.0 L (204.0-354.0) mg/dL Ferritin 989.0 H (22.0-322.0) ng/mL Assessment and Plan Assessment: Acute hypoxemic respiratory failure, multifactorial. S/P right sided thoracentesis, with a right-sided iatrogenic pneumothorax. S/P right Thora vent placement, with removal on December 12, 2024. Multiple myeloma. Acute kidney injury with bilateral hydronephrosis. Hypocalcemia. Chronic anemia. Hypertension. History of hyperlipidemia. History of obstructive sleep apnea syndrome, maintained on CPAP. Possible right lower lobe pneumonia. Plan: Plan dated December 11, 2024. The patient is seen today in room 363. He currently is on 3 L of oxygen. No respiratory distress. He sustained a right pneumothorax after thoracentesis. Right Thora vent device is in place. The Thora vent device will be capped. Currently he is got a one-way valve on the Thora vent device. He continues on Zosyn. He is getting saline at 10 cc an hour. The patient will have a repeat chest x-ray at 1:00 today. Additional recommendations and suggestions are forthcoming. Should his lungs stay expanded, the Thora vent device will be removed. Clinically, the patient is not in any respiratory distress. He is very confused. Family members are in the room. Findings are discussed. Plan dated December 12, 2024. The patient is seen today in room 363. He continues on nasal O2 at 2 L. He is getting D5W at 50 cc an hour. A chest x-ray this morning did not reveal right- sided pneumothorax. The pleural effusion appears smaller. The Thora vent device was removed. A repeat chest x-ray has been ordered. Clinically, the patient is confused, but stable. He is not manifesting any signs or symptoms of respiratory distress. He has been weaned down to 2 L from 3. Labs, x-rays, medications are reviewed. We will continue to follow. Prognosis is guarded. Dictation was produced using op5ation software. Please excuse any grammatical, word or spelling errors. Time with Patient: Less than 30
--- NOTE | 2024-12-12 11:53 | XR ---
EXAMINATION TYPE: XR chest 1V portable DATE OF EXAM: 12/12/2024 CLINICAL INDICATION: Male, 79 years old with history of Thora vent out, progress study. TECHNIQUE: Single AP portable upright view of the chest is obtained. COMPARISON: Chest x-ray from earlier today FINDINGS: Interval removal of the pleural catheter without pneumothorax seen. Cardiac silhouette size is upper limits of normal with small to moderate-size right greater than left pleural effusions. Prominent left apical pleural thickening redemonstrated. Right greater than left Bilateral lower lung increased opacities are redemonstrated. Central vascular congestion again seen. IMPRESSION: Interval removal of right-sided Thoravent catheter without pneumothorax seen [facility], , 12/12/2024 11:50 AM
[2024-12-12] MEDS: LOPERAMIDE 2 MG CAP PO SCH (12:34)
--- NOTE | 2024-12-12 12:37 | P.PN ---
Subjective Progress Note Date: 12/12/24 Patient very lethargic at todays visit, but he did receive a dose of seroquel. Pt has rectal tube in place, persisting diarrhea. C-diff was negative. Wbc 5.2, hgb 8.1, plt 140. Objective - Vital Signs Vital signs: Vital Signs Temp 97.9 F 12/12/24 08:25 Pulse 95 12/12/24 08:25 Resp 22 12/12/24 08:25 BP 142/63 12/12/24 08:25 Pulse Ox 95 12/12/24 08:25 FiO2 3 12/07/24 11:00 Intake & Output 12/11/24 12/12/24 12/12/24 18:59 06:59 18:59 Intake Total 220 Output Total 400 425 Balance -180 -425 Weight 84.6 kg Intake: Intake, IV Titration 100 Amount Piperacillin-Tazobactam 3 100 .375 gm In Sodium Chloride 0.9% 100 ml @ 25 mls/hr IVPB Q8H [facility] Rx#: [id number] Oral 120 Output: Urine 400 425 Other: Voiding Method External Catheter External Catheter External Catheter # Voids 2 # Bowel Movements 1 - Constitutional General appearance: Present: no acute distress - Respiratory Details: breathing is even and unlabored - Cardiovascular Details: skin warm and dry - Gastrointestinal Gastrointestinal Comment(s): mild distension General gastrointestinal: Absent: tenderness - Integumentary Integumentary: Absent: cyanotic, jaundiced - Neurologic Neurologic Comment(s): lethargic - Labs CBC & Chem 7: 12/11/24 04:52 12/12/24 07:12 Labs: Abnormal Lab Results - Last 24 Hours (Table) 12/11/24 12/12/24 Range/Units 04:52 07:12 Chloride 111 H (98-107) mmol/L BUN 34 H (9-20) mg/dL Creatinine 2.03 H (0.66-1.25) mg/dL Glucose 104 H (74-99) mg/dL Iron 36 L (65-175) UG/DL % Saturation 13.95 L (15.00-50.00) Transferrin 184.0 L (204.0-354.0) mg/dL Ferritin 989.0 H (22.0-322.0) ng/mL Assessment and Plan (1) Hypercalcemia Current Visit: Yes Status: Acute Priority: High Code(s): E83.52 - HYPERCALCEMIA SNOMED Code(s): 74286589 (2) [place] light chain myeloma Current Visit: Yes Status: Acute Priority: High Code(s): C90.00 - MULTIPLE MYELOMA NOT HAVING ACHIEVED REMISSION SNOMED Code(s): 725515896 (3) New onset atrial fibrillation Current Visit: Yes Status: Acute Code(s): I48.91 - UNSPECIFIED ATRIAL FIBRILLATION SNOMED Code(s): 55842704 Plan: 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 -Completed 7 cycles of RVD in May 2024 achieving very good partial response with 99% reduction in kappa light chain -Had been on maintenance Revlimid 10 mg daily, which he stopped taking September 2024 for unclear reasons, he then developed progressive disease and symptoms of weakness, MICKEY, anemia, and thrombocytopenia -Admitted with failure to thrive with weakness, dehydration -CTA ruled out PE but reported pleural-based nodules with large right sided pleural effusion, peritoneal carcinomatosis, and retroperitoneal lymphadenopathy -720cc Right-sided thoracentesis performed, post procedure pneumo, thoravent placed. Resp status improving -Pending cytology on pleural fluid -As long as there is no evidence of new primary malignancy, plan will be to treat with 1 cycle of CyBorD inpatient to achieve disease control -Once he is outpatient, he can be transitioned back to oral Revlimid as his initial disease responded very well to Revlimid and did not progress on this. Pt will need rehab upon discharge. Revlimid would be held until pt is discharged from SNF Diarrhea: -C-diff testing negative -Scheduled imodium started Hypercalcemia -Noted to have calcium of 10.5 on admission -Due to relapsed multiple myeloma -Received IV fluids with no significant elevation in his calcium subsequently -For now, we will hold off on bisphosphonate and continue to assess calcium -If he has progressive rise in calcium, bisphosphonate can be given Case discussed with admitting team today. Would like to hold discharge so pt can receive 1 cycle of CyBorD, pending pleural cytology Doctor attests: I performed a history and physical examination of this patient, developed impression and plan of care. Discussed with dictator. I agree with dictators note, documented as a scribe.
[2024-12-12 13:54] LABS: Free Kappa Lt Chain Qnt, Urine 65.89 mg/dL (0.00-3.29); Free Lambda Lt Chain Qt, Urine 1.09 mg/dL (0.00-0.38)
[2024-12-12] MEDS: SODIUM FERRIC GLUCONAT-SUCROSE 125 MG in SODIUM CHLORIDE 0.9% 100 ML IVPB SCH (17:52)
[2024-12-12] MEDS: MELATONIN 3 MG TABLET PO PRN (20:23)
[2024-12-12] MEDS: FUROSEMIDE 20 MG TAB PO SCH (20:23)
[2024-12-12] MEDS: QUEtiapine 25 MG TAB PO PRN (20:23)
[2024-12-12 22:11] LABS: Glucose,Whole Blood 137 mg/dL (70-110)
[2024-12-12 22:27] LABS: ABG Base Excess -1.2 mmol/L; ABG HCO3 26 mmol/L (21-25); ABG Oxygen Saturation 94.2 % (94-97); ABG PCO2 58 mmHg (35-45); ABG PH 7.26 (7.35-7.45); ABG PO2 80 mmHg (83-108); ABG TCO2 28 mmol/L (19-24); Allen Test Performed? Yes
--- NOTE | 2024-12-12 22:49 | XR ---
EXAM: XR Chest, 1 View CLINICAL HISTORY: ITS.REASON XR Reason: Resp distress TECHNIQUE: Frontal view of the chest. COMPARISON: No relevant prior studies available. FINDINGS: Lungs: See below. Pleural space: Large right pleural effusion with cardiomegaly and diffuse central pulmonary vascular congestion. No pneumothorax. Heart: See above. Mediastinum: Unremarkable. Normal mediastinal contour. Bones/joints: Unremarkable. No acute fracture. IMPRESSION: CHF with large right pleural effusion.
[2024-12-12 23:13] LABS: African American GFR (CKD) 24 (>60 ml/min/1.73 sqM); Anion Gap 11 mmol/L; Blood Urea Nitrogen 39 mg/dL (9-20); Calcium 9.8 mg/dL (8.4-10.2); Carbon Dioxide 26 mmol/L (22-30); Chloride 109 mmol/L (98-107); Glucose 130 mg/dL (74-99); Non-African American GFR(CKD) 21 (>60 ml/min/1.73 sqM); Potassium 3.8 mmol/L (3.5-5.1); Sodium 146 mmol/L (137-145)
[2024-12-13 00:06] LABS: Glucose,Whole Blood 174 mg/dL (70-110)
[2024-12-13 00:11] LABS: Allen Test Performed? Yes
[2024-12-13 00:21] LABS: Glucose,Whole Blood 190 mg/dL (70-110)
[2024-12-13] MEDS: SODIUM CHLORIDE 0.9% 1,000 ML IV ONE ×2 (00:51→02:00)
[2024-12-13] MEDS: NOREPINEPHRINE 4 MG in SODIUM CHLORIDE 0.9% 250 ML IV SCH (01:00)
[2024-12-13 01:08] LABS: ABG Base Excess -3.2 mmol/L; ABG HCO3 28 mmol/L (21-25); ABG PCO2 92 mmHg (35-45); ABG PH 7.08 (7.35-7.45); ABG PO2 112 mmHg (83-108); ABG TCO2 30 mmol/L (19-24)
--- NOTE | 2024-12-13 01:19 | P.PN ---
Subjective Date of service for this note is 12/12/2024 patient is 79-year-old gentleman with past medical history significant for mul tiple myeloma, hypertension, hyperlipidemia presented to the ER because of abnormal labs. Patient normally sees Dr. Broderick and was on systemic treatment which apparently had stopped taking. Patient had blood work drawn outpatient and was told by the custom miller to come to the ER. Patient states over the last couple of days he has been having increasing shortness of breath. Shortness of breath was present at rest as on exertion. Patient was complaining of being lethargic and weakness. Patient also complaining of productive cough with occasional episodes of hemoptysis. Denies any chest pain. There is no complaint of fever or chills. There is no complaint of orthopnea or PND. Patient denies any nausea, vomiting, pain. Patient denies any lightheaded or dizziness. Initial lab work done in the ER showed WBC 3.8, hemoglobin 9, platelet count 134 sodium 142, potassium 4, BUN 40, creatinine 1.40 glucose 103, lactate 1.2, calcium 10.5, magnesium 1.4 bilirubin 0.7, AST 27, ALT 11, troponin 0.018, proBNP 1550 Influenza A not detected Influenza B not detected RSV not detected COVID-19 not detected EKG done in the ER showed heart rate of , no ST segment elevation or depression seen, no T-wave inversions seen. Chest x-ray done in the ER showed patchy infiltrative opacity throughout the right lung with small to moderate size right pleural effusion. Questionable air-fluid level versus overlying skinfold is indeterminate for cavitary lesion or abscess. Recommend CT chest for further evaluation, consolidation in the left lung apex CT chest PE protocol done showed no definite acute PE within the vasculature, significant progression of metastatic disease with numerous pleural-based metastatic deposits and involvement of the left-sided ribs additionally there is peritoneal carcinomatosis in the partially visualized upper abdomen. Patient admitted to internal medicine service 12/07. Patient seen and examined. Status post right-sided thoracentesis with removal of 720 cc of fluid. Blood work done today showed WBC 4.9, hemoglobin 8.8, platelet count 138, sodium 143, potassium 4.1, BUN 33, creatinine 1.74, calcium 9.7 Patient had right-sided Thora vent placed this morning. Currently on 4 L of oxygen. 12/08. Patient seen and examined. Vital signs done this morning showedTemp 98, heart rate 98, respirations 30, blood pressure 125/84, currently on 2 L of oxygen. Denies any shortness of breath at rest. Currently has a Thora vent in place. Chest x-ray done this morning shows right-sided pleural effusion, right- sided chest tube in place with residual pneumothorax. 12/09. Old male patient currently sleeping, he was agitated and restless overnight and he was prescribed Seroquel 25 mg which made him calm He still tachypneic with a breathing rate around 28, he is saturating high 90s on 3 L oxygen via nasal cannula Hemoglobin slightly trending down to 7.7 and creatinine up to 1.9 His proBNP is 1550 and procalcitonin negative at 0.16 Chest x-ray reviewed by myself showing right more than left infiltrate but looks better than 2 days ago Renal ultrasound showing no hydronephrosis finger right renal cyst He is currently kept on Zosyn. On home dose of Eliquis 2.5 mg. He had pneumothorax on the right side status post Thora vent, currently he has minimal discharge from his right Thora vent 12/10 Patient moved out of the ICU to select unit He is more awake today but still confused, he was trying to pull out his lines and Thora vent. He is mildly tachypneic with talking. He can tell he is in the hospital but also still mildly confused. Serevent was Today. Repeat chest x-ray showing mild improvement in the right pneumothorax, I reviewed the chest x-ray by myself. He remains on Zosyn and home dose of Eliquis 2.5 Will going to add small dose of Seroquel 12.5. 12/11 Patient more awake trying to talk Still feel short of breath although slightly better than yesterday, breathing rate around 22 compared to 28 yesterday, his right upper chest Thora vent is in place and capped Repeat chest x-ray this morning showing right pleural effusion more than left with pulmonary vascular congestion suspicious for CHF. Currently patient off IV fluid He is on Zosyn and Eliquis 2.5 mg. 12/12 Patient in the morning was awake and alert but slightly agitated, he had a sitter at bedside. Thora vent was taken out after it was capped yesterday. His mentation was getting worse through the day and he became more tachypneic and tachycardic and he has to be placed on BiPAP. Repeat chest x-ray showing moderate to large right pleural effusion and evidence of CHF. Patient was moved to the ICU for more monitoring pH was 7.2 worsening to early intervention specialist to 7.08 and pCO2 was elevated at 58 worsened to 92. Creatinine also worsened up to 2.7 and sodium 146., With worsening breathing patient had to be intubated and placed on mechanical ventilation Active Medications Generic Name Dose Route Start Last Admin Trade Name Freq PRN Reason Stop Dose Admin Albuterol/Ipratropium 3 ml 12/05/24 18:42 12/07/24 01:50 Ipratropium-Albuterol 3 Ml Neb INHALATION 3 ml RT-Q4H PRN Administration shortness of breath Amiodarone HCl 200 mg 12/07/24 12:30 12/12/24 20:23 Amiodarone 200 Mg Tab PO 200 mg BID VIKY Administration Chlorhexidine Gluconate 15 ml 12/13/24 01:00 Chlorhexidine Gluconate 15 Ml Cup MUCOUS MEM BID VIKY Famotidine 10 mg 12/11/24 21:00 12/12/24 20:23 Famotidine 20 Mg Tab PO 10 mg BID VIKY Administration Furosemide 20 mg 12/12/24 21:00 12/12/24 20:23 Furosemide 20 Mg Tab PO 20 mg BID VIKY Administration Piperacillin Sod/Tazobactam 100 mls @ 25 mls/hr 12/06/24 03:00 12/12/24 19:29 Sod 3.375 gm/ Sodium Chloride IVPB 25 mls/hr Q8H VIKY Administration Protocol Sodium Chloride 1,000 mls @ 25 mls/hr 12/09/24 11:30 12/12/24 19:32 Saline 0.9% IV Not Given .Q24H VIKY Dextrose/Water 1,000 mls @ 50 mls/hr 12/11/24 10:45 12/12/24 05:45 Dextrose 5%-Water Iv Soln IV Not Given .Q20H VIKY Ferric Sodium Gluconate 125 mg 110 mls @ 100 mls/hr 12/12/24 11:00 12/12/24 17:52 / Sodium Chloride IVPB 12/15/24 10:59 100 mls/hr DAILY VIKY Administration Propofol 1,000 mg/ IV Solution 100 mls @ 7.614 mls/hr 12/13/24 01:00 IV .Q13H9M VIKY Protocol 15 MCG/KG/MIN Sodium Chloride 1,000 mls @ 999 mls/hr 12/13/24 00:50 Saline 0.9% IV 12/13/24 01:50 .Q1H1M ONE Loperamide HCl 2 mg 12/12/24 13:00 12/12/24 20:23 Loperamide 2 Mg Cap PO 2 mg QID VIKY Administration Melatonin 6 mg 12/12/24 07:58 12/12/24 20:23 Melatonin 3 Mg Tablet PO 6 mg HS PRN Administration Insomnia Metoprolol Succinate 50 mg 12/07/24 09:00 12/12/24 08:26 Metoprolol Succinate (Er) 50 Mg Tab.Er.24h PO 50 mg DAILY VIKY Administration Miscellaneous Information 1 each 12/05/24 18:42 Pneumonia Protocol Utilized 1 Each Misc PO ONCE PRN Per Protocol Miscellaneous Information 1 each 12/08/24 06:49 Potassium Replacement Protocol 1 Each Misc MISCELLANE DAILY PRN Per Protocol Protocol Quetiapine Fumarate 12.5 mg 12/10/24 09:58 12/12/24 20:23 Quetiapine 25 Mg Tab PO 12.5 mg DAILY PRN Administration Agitation Objective - Vital Signs Vital signs: Vital Signs Temp 98.2 F 12/12/24 23:08 Pulse 90 12/13/24 00:01 Resp 18 12/13/24 00:01 BP 152/66 12/13/24 00:01 Pulse Ox 82 L 12/13/24 00:01 FiO2 100 12/13/24 01:01 Intake & Output 12/12/24 12/12/24 12/13/24 06:59 18:59 06:59 Output Total 425 300 400 Balance -425 -300 -400 Output: Urine 425 300 400 Other: Voiding Method External Catheter External Catheter Diaper Incontinent # Voids 2 # Bowel Movements 1 1 - Exam -GENERAL: The patient is sleepy, not in any acute distress. Well developed, well nourished. HEENT: Pupils are round and equally reacting to light. EOMI. No scleral icterus. No conjunctival pallor. Normocephalic, atraumatic. No pharyngeal erythema. No thyromegaly. CARDIOVASCULAR: S1 and S2 present. No murmurs, rubs, or gallops. -PULMONARY: Chest is clear to auscultation, no wheezing , no crackles. Tachypneic, decreased breath sounds on the right side ABDOMEN: Soft, nontender, nondistended, normoactive bowel sounds. No palpable organomegaly. MUSCULOSKELETAL: No joint swelling or deformity. EXTREMITIES: No cyanosis, clubbing, or pedal edema. NEUROLOGICAL: Gross neurological examination did not reveal any focal deficits. SKIN: No rashes. no petechiae. Transfer to - Labs CBC & Chem 7: 12/11/24 04:52 12/12/24 22:24 Labs: Abnormal Lab Results - Last 24 Hours (Table) 12/11/24 12/12/24 12/12/24 Range/Units 14:20 07:12 22:10 ABG pH (7.35-7.45) ABG pCO2 (35-45) mmHg ABG pO2 (83-108) mmHg ABG HCO3 (21-25) mmol/L ABG Total CO2 (19-24) mmol/L Hemoglobin (13.0-17.5) gm/dL Sodium (137-145) mmol/L Chloride 111 H (98-107) mmol/L BUN 34 H (9-20) mg/dL Creatinine 2.03 H (0.66-1.25) mg/dL Glucose 104 H (74-99) mg/dL POC Glucose (mg/dL) 137 H (70-110) mg/dL U Free [place] Ch 65.89 H (0.00-3.29) mg/dL U Free [place] Ch 1.09 H (0.00-0.38) mg/dL 12/12/24 12/12/24 12/13/24 Range/Units 22:21 22:24 00:03 ABG pH 7.26 L (7.35-7.45) ABG pCO2 58 H (35-45) mmHg ABG pO2 80 L (83-108) mmHg ABG HCO3 26 H (21-25) mmol/L ABG Total CO2 28 H (19-24) mmol/L Hemoglobin 8.2 L (13.0-17.5) gm/dL Sodium 146 H (137-145) mmol/L Chloride 109 H (98-107) mmol/L BUN 39 H (9-20) mg/dL Creatinine 2.73 H (0.66-1.25) mg/dL Glucose 130 H (74-99) mg/dL POC Glucose (mg/dL) 174 H (70-110) mg/dL U Free [place] Ch (0.00-3.29) mg/dL U Free [place] Ch (0.00-0.38) mg/dL 12/13/24 12/13/24 Range/Units 00:08 00:20 ABG pH 7.08 L* (7.35-7.45) ABG pCO2 92 H* (35-45) mmHg ABG pO2 112 H (83-108) mmHg ABG HCO3 28 H (21-25) mmol/L ABG Total CO2 30 H (19-24) mmol/L Hemoglobin (13.0-17.5) gm/dL Sodium (137-145) mmol/L Chloride (98-107) mmol/L BUN (9-20) mg/dL Creatinine (0.66-1.25) mg/dL Glucose (74-99) mg/dL POC Glucose (mg/dL) 190 H (70-110) mg/dL U Free [place] Ch (0.00-3.29) mg/dL U Free [place] Ch (0.00-0.38) mg/dL Assessment and Plan Assessment: Acute hypoxic respiratory failure required intubation and mechanical ventilation Large pleural effusion status post thoracocentesis. On 12/13 has breathing that worsened because of CHF and large pleural effusion and patient has to be placed on mechanical ventilation Iatrogenic right pneumothorax status post Thora vent placement, which was removed on 12/13 Multiple myeloma Acute kidney injury Hypercalcemia Chronic anemia Hypertension Hyperlipidemia Obstructive sleep apnea A-fib and RVR Plan: Patient transferred to the ICU Continue with intubation and mechanical ventilation as per pulmonary/critical care team On Lasix per tobacco roller Continue with Zosyn Continue with home dose of Eliquis Continue with the breathing treatment Pulmonary/cardiology team consult Renal ultrasound is reviewed which was basically unremarkable and hematology collagen and nephrology team are also on consult DVT prophylaxis: Eliquis GI prophylaxis: Pepcid Prognosis is guarded
[2024-12-13 01:34] LABS: ABG Base Excess -2.2 mmol/L; ABG HCO3 24 mmol/L (21-25); ABG Oxygen Saturation >100.0 % (94-97); ABG PCO2 45 mmHg (35-45); ABG PH 7.33 (7.35-7.45); ABG PO2 286 mmHg (83-108); ABG TCO2 25 mmol/L (19-24)
[2024-12-13 01:36] LABS: Allen Test Performed? no
[2024-12-13] MEDS ORDERED: Magnesium Replacement Protocol 1 EACH MISC MISCELLANE PRN (01:51)
[2024-12-13] MEDS ORDERED: NALOXONE 0.4 MG/ML 1 ML VIAL IV PRN (01:51)
--- NOTE | 2024-12-13 01:59 | XR ---
EXAM: XR Chest, 1 View CLINICAL HISTORY: ITS.REASON XR Reason: post intubation TECHNIQUE: Frontal view of the chest. COMPARISON: 12/12/2024 FINDINGS: Lungs: CHF with a large right pleural effusion. No consolidation. Pleural space: See above. Heart: Unremarkable. No cardiomegaly. Mediastinum: Unremarkable. Normal mediastinal contour. Bones/joints: Unremarkable. No acute fracture. Tubes, lines and devices: Endotracheal tube with its tip above the cleve. Esophageal catheter extending into the gastric fundus. IMPRESSION: CHF with a large right pleural effusion.
[2024-12-13] MEDS: CHLORHEXIDINE GLUCONATE 15 ML CUP MUCOUS MEM SCH (02:34)
[2024-12-13] MEDS: FUROSEMIDE 10 MG/ML 4 ML VIAL IV STA (02:34)
[2024-12-13 03:08] LABS: African American GFR (CKD) 25 (>60 ml/min/1.73 sqM); Anion Gap 11 mmol/L; Blood Urea Nitrogen 41 mg/dL (9-20); Calcium 9.2 mg/dL (8.4-10.2); Carbon Dioxide 24 mmol/L (22-30); Chloride 111 mmol/L (98-107); Glucose 156 mg/dL (74-99); Magnesium 1.9 mg/dL (1.6-2.3); Non-African American GFR(CKD) 22 (>60 ml/min/1.73 sqM); Sodium 146 mmol/L (137-145)
[2024-12-13 03:18] LABS: Basophils % (A) 0 %; Eosinophils % (A) 0 %; HCT 21.3 % (39.0-53.0); Hypochromasia Moderate; Lymphocytes # (A) 0.3 k/uL (1.0-4.8); Lymphocytes % (A) 5 %; MCH 34.3 pg (25.0-35.0); MCHC 32.9 g/dL (31.0-37.0); MCV 104.5 fL (80.0-100.0); Macrocytosis Moderate; Monocytes # (A) 0.4 k/uL (0-1.0); Monocytes % (A) 7 %; Neutrophils # (A) 4.7 k/uL (1.3-7.7); Neutrophils % (A) 86 %; Platelet Count 139 k/uL (150-450); RBC 2.04 m/uL (4.30-5.90); RDW 15.1 % (11.5-15.5); WBC 5.5 k/uL (3.8-10.6)
[2024-12-13 05:28] LABS: ABG Base Excess -1.7 mmol/L; ABG HCO3 24 mmol/L (21-25); ABG Oxygen Saturation 99.6 % (94-97); ABG PCO2 41 mmHg (35-45); ABG PH 7.37 (7.35-7.45); ABG PO2 139 mmHg (83-108); ABG TCO2 25 mmol/L (19-24)
[2024-12-13 05:30] LABS: Allen Test Performed? no
[2024-12-13] MEDS: MAGNESIUM SULFATE-D5W PMX 1 GM in DEXTROSE/WATER 1 100ML.BAG IVPB ONE (05:34)
--- NOTE | 2024-12-13 06:12 | XR ---
EXAMINATION TYPE: XR chest 1V DATE OF EXAM: 12/13/2024 CLINICAL INDICATION: Male, 79 years old with history of Intubated, progress study. SOB. TECHNIQUE: Single AP portable supine view of the chest is obtained. COMPARISON: Chest x-ray from one day earlier and older studies. FINDINGS: Mild cardiomegaly with small to moderate-size right greater than left pleural effusions. Prominent le ft apical pleural thickening redemonstrated. Persistent right lung increased opacity and Central vasc ular congestion again seen. IMPRESSION: Mild cardiomegaly and small to moderate size right greater than left pleural effusions an d central vascular congestion are all redemonstrated. Correlate for continued CHF exacerbation/fluid overload state. No significant change from one day earlier. Worsening diffuse right lung edema and/or acute infiltrates is noted. [facility], , 12/13/2024 6:10 AM
--- NOTE | 2024-12-13 09:28 | P.PN ---
Subjective Date of service for this note is 12/12/2024 patient is 79-year-old gentleman with past medical history significant for mul tiple myeloma, hypertension, hyperlipidemia presented to the ER because of abnormal labs. Patient normally sees Dr. Broderick and was on systemic treatment which apparently had stopped taking. Patient had blood work drawn outpatient and was told by the debt recovery officer to come to the ER. Patient states over the last couple of days he has been having increasing shortness of breath. Shortness of breath was present at rest as on exertion. Patient was complaining of being lethargic and weakness. Patient also complaining of productive cough with occasional episodes of hemoptysis. Denies any chest pain. There is no complaint of fever or chills. There is no complaint of orthopnea or PND. Patient denies any nausea, vomiting, pain. Patient denies any lightheaded or dizziness. Initial lab work done in the ER showed WBC 3.8, hemoglobin 9, platelet count 134 sodium 142, potassium 4, BUN 40, creatinine 1.40 glucose 103, lactate 1.2, calcium 10.5, magnesium 1.4 bilirubin 0.7, AST 27, ALT 11, troponin 0.018, proBNP 1550 Influenza A not detected Influenza B not detected RSV not detected COVID-19 not detected EKG done in the ER showed heart rate of , no ST segment elevation or depression seen, no T-wave inversions seen. Chest x-ray done in the ER showed patchy infiltrative opacity throughout the right lung with small to moderate size right pleural effusion. Questionable air-fluid level versus overlying skinfold is indeterminate for cavitary lesion or abscess. Recommend CT chest for further evaluation, consolidation in the left lung apex CT chest PE protocol done showed no definite acute PE within the vasculature, significant progression of metastatic disease with numerous pleural-based metastatic deposits and involvement of the left-sided ribs additionally there is peritoneal carcinomatosis in the partially visualized upper abdomen. Patient admitted to internal medicine service 12/07. Patient seen and examined. Status post right-sided thoracentesis with removal of 720 cc of fluid. Blood work done today showed WBC 4.9, hemoglobin 8.8, platelet count 138, sodium 143, potassium 4.1, BUN 33, creatinine 1.74, calcium 9.7 Patient had right-sided Thora vent placed this morning. Currently on 4 L of oxygen. 12/08. Patient seen and examined. Vital signs done this morning showedTemp 98, heart rate 98, respirations 30, blood pressure 125/84, currently on 2 L of oxygen. Denies any shortness of breath at rest. Currently has a Thora vent in place. Chest x-ray done this morning shows right-sided pleural effusion, right- sided chest tube in place with residual pneumothorax. 12/09. Old male patient currently sleeping, he was agitated and restless overnight and he was prescribed Seroquel 25 mg which made him calm He still tachypneic with a breathing rate around 28, he is saturating high 90s on 3 L oxygen via nasal cannula Hemoglobin slightly trending down to 7.7 and creatinine up to 1.9 His proBNP is 1550 and procalcitonin negative at 0.16 Chest x-ray reviewed by myself showing right more than left infiltrate but looks better than 2 days ago Renal ultrasound showing no hydronephrosis finger right renal cyst He is currently kept on Zosyn. On home dose of Eliquis 2.5 mg. He had pneumothorax on the right side status post Thora vent, currently he has minimal discharge from his right Thora vent 12/10 Patient moved out of the ICU to select unit He is more awake today but still confused, he was trying to pull out his lines and Thora vent. He is mildly tachypneic with talking. He can tell he is in the hospital but also still mildly confused. Serevent was Today. Repeat chest x-ray showing mild improvement in the right pneumothorax, I reviewed the chest x-ray by myself. He remains on Zosyn and home dose of Eliquis 2.5 Will going to add small dose of Seroquel 12.5. 12/11 Patient more awake trying to talk Still feel short of breath although slightly better than yesterday, breathing rate around 22 compared to 28 yesterday, his right upper chest Thora vent is in place and capped Repeat chest x-ray this morning showing right pleural effusion more than left with pulmonary vascular congestion suspicious for CHF. Currently patient off IV fluid He is on Zosyn and Eliquis 2.5 mg. 12/12 Patient in the morning was awake and alert but slightly agitated, he had a sitter at bedside. Thora vent was taken out after it was capped yesterday. His mentation was getting worse through the day and he became more tachypneic and tachycardic and he has to be placed on BiPAP. Repeat chest x-ray showing moderate to large right pleural effusion and evidence of CHF. Patient was moved to the ICU for more monitoring pH was 7.2 worsening to early learning teacher to 7.08 and pCO2 was elevated at 58 worsened to 92. Creatinine also worsened up to 2.7 and sodium 146., With worsening breathing patient had to be intubated and placed on mechanical ventilation 12/13 Patient remains in the ICU intubated and sedated His breathing more quiet today. Abdomen soft Hemoglobin dropped to 7.0. Platelet count stable at 139, creatinine stable or slightly improved 2.7 down to 2.6. Patient placed on normal saline 75 mL/h. Active Medications Generic Name Dose Route Start Last Admin Trade Name Freq PRN Reason Stop Dose Admin Albuterol/Ipratropium 3 ml 12/05/24 18:42 12/13/24 09:09 Ipratropium-Albuterol 3 Ml Neb INHALATION 3 ml RT-Q4H PRN Administration shortness of breath Amiodarone HCl 200 mg 12/07/24 12:30 12/12/24 20:23 Amiodarone 200 Mg Tab PO 200 mg BID VIKY Administration Chlorhexidine Gluconate 15 ml 12/13/24 01:00 12/13/24 02:34 Chlorhexidine Gluconate 15 Ml Cup MUCOUS MEM 15 ml BID VIKY Administration Famotidine 10 mg 12/11/24 21:00 12/12/24 20:23 Famotidine 20 Mg Tab PO 10 mg BID VIKY Administration Furosemide 20 mg 12/12/24 21:00 12/12/24 20:23 Furosemide 20 Mg Tab PO 20 mg BID IVKY Administration Sodium Chloride 1,000 mls @ 25 mls/hr 12/09/24 11:30 12/12/24 19:32 Saline 0.9% IV Not Given .Q24H VIKY Ferric Sodium Gluconate 125 mg 110 mls @ 100 mls/hr 12/12/24 11:00 12/12/24 17:52 / Sodium Chloride IVPB 12/15/24 10:59 100 mls/hr DAILY VIKY Administration Propofol 1,000 mg/ IV Solution 100 mls @ 7.614 mls/hr 12/13/24 01:00 12/13/24 07:57 IV 20 mcg/kg/min .Q13H9M VIKY 10.152 mls/hr Administration Protocol 15 MCG/KG/MIN Norepinephrine Bitartrate 4 mg 254 mls @ 16.116 mls/hr 12/13/24 00:30 12/13/24 07:53 / Sodium Chloride IV 0.03 mcg/kg/min .[id number] VIKY 9.67 mls/hr Titration Protocol 0.05 MCG/KG/MIN Dextrose/Water 1,000 mls @ 75 mls/hr 12/13/24 08:45 Dextrose 5%-Water Iv Soln IV .[id number] VIKY Loperamide HCl 2 mg 12/12/24 13:00 12/12/24 20:23 Loperamide 2 Mg Cap PO 2 mg QID VIKY Administration Metoprolol Succinate 50 mg 12/07/24 09:00 12/12/24 08:26 Metoprolol Succinate (Er) 50 Mg Tab.Er.24h PO 50 mg DAILY VIKY Administration Miscellaneous Information 1 each 12/05/24 18:42 Pneumonia Protocol Utilized 1 Each Misc PO ONCE PRN Per Protocol Miscellaneous Information 1 each 12/08/24 06:49 Potassium Replacement Protocol 1 Each Misc MISCELLANE DAILY PRN Per Protocol Protocol Miscellaneous Information 1 each 12/13/24 01:51 Magnesium Replacement Protocol 1 Each Misc MISCELLANE DAILY PRN Per Protocol Protocol Naloxone HCl 0.2 mg 12/13/24 01:51 Naloxone 0.4 Mg/Ml 1 Ml Vial IV Q2M PRN Opioid Reversal Quetiapine Fumarate 12.5 mg 12/10/24 09:58 12/12/24 20:23 Quetiapine 25 Mg Tab PO 12.5 mg DAILY PRN Administration Agitation Objective - Vital Signs Vital signs: Vital Signs Temp 98.3 F 12/13/24 08:00 Pulse 76 12/13/24 09:10 Resp 20 12/13/24 09:10 BP 106/52 12/13/24 09:00 Pulse Ox 97 12/13/24 09:00 FiO2 40 12/13/24 09:01 Intake & Output 12/12/24 12/13/24 12/13/24 18:59 06:59 18:59 Intake Total 2195.758 162.701 Output Total 300 750 75 Balance -300 1445.758 87.701 Weight 81.9 kg Intake: Intake, IV Titration 2195.758 162.701 Amount Magnesium Sulfate-D5w Pmx 100 1 gm In Dextrose/Water 1 100ml.bag @ 100 mls/hr IVPB ONCE ONE Rx#: [id number] Norepinephrine 4 mg In 80.5 109.911 Sodium Chloride 0.9% 250 ml @ 0.05 MCG/KG/MIN 16. 116 mls/hr IV .[id number] [facility] Rx#:[id number] Sodium Chloride 0.9% 1, 999 000 ml @ 999 mls/hr IV . Q1H1M ONE Rx#:[id number] Sodium Chloride 0.9% 1, 999 000 ml @ 999 mls/hr IV . Q1H1M ONE Rx#:[id number] propofoL 1,000 mg In 17.258 52.79 Empty Bag 1 bag @ 15 MCG/ KG/MIN 7.614 mls/hr IV . Q13H9M [facility] Rx#:[id number] Output: Urine 300 750 75 Other: Voiding Method External Catheter Diaper Incontinent # Bowel Movements 1 ABP, PAP, CO, CI - Last Documented Arterial Blood Pressure 116/39 - Exam -GENERAL: The patient is sleepy, not in any acute distress. Well developed, well nourished. HEENT: Pupils are round and equally reacting to light. EOMI. No scleral icterus. No conjunctival pallor. Normocephalic, atraumatic. No pharyngeal erythema. No thyromegaly. CARDIOVASCULAR: S1 and S2 present. No murmurs, rubs, or gallops. -PULMONARY: Chest is clear to auscultation, no wheezing , no crackles. Tachypneic, decreased breath sounds on the right side ABDOMEN: Soft, nontender, nondistended, normoactive bowel sounds. No palpable organomegaly. MUSCULOSKELETAL: No joint swelling or deformity. EXTREMITIES: No cyanosis, clubbing, or pedal edema. NEUROLOGICAL: Gross neurological examination did not reveal any focal deficits. SKIN: No rashes. no petechiae. Transfer to - Labs CBC & Chem 7: 12/13/24 02:48 12/13/24 02:12 Labs: Abnormal Lab Results - Last 24 Hours (Table) 12/11/24 12/12/24 12/12/24 Range/Units 14:20 22:10 22:21 RBC (4.30-5.90) m/uL Hgb (13.0-17.5) gm/dL Hct (39.0-53.0) % MCV (80.0-100.0) fL Plt Count (150-450) k/uL Lymphocytes # (1.0-4.8) k/uL ABG pH 7.26 L (7.35-7.45) ABG pCO2 58 H (35-45) mmHg ABG pO2 80 L (83-108) mmHg ABG HCO3 26 H (21-25) mmol/L ABG Total CO2 28 H (19-24) mmol/L ABG O2 Saturation (94-97) % Hemoglobin 8.2 L (13.0-17.5) gm/dL Sodium (137-145) mmol/L Chloride (98-107) mmol/L BUN (9-20) mg/dL Creatinine (0.66-1.25) mg/dL Glucose (74-99) mg/dL POC Glucose (mg/dL) 137 H (70-110) mg/dL U Free [place] Ch 65.89 H (0.00-3.29) mg/dL U Free [place]ambda Light Ch 1.09 H (0.00-0.38) mg/dL 12/12/24 12/13/24 12/13/24 Range/Units 22:24 00:03 00:08 RBC (4.30-5.90) m/uL Hgb (13.0-17.5) gm/dL Hct (39.0-53.0) % MCV (80.0-100.0) fL Plt Count (150-450) k/uL Lymphocytes # (1.0-4.8) k/uL ABG pH 7.08 L* (7.35-7.45) ABG pCO2 92 H* (35-45) mmHg ABG pO2 112 H (83-108) mmHg ABG HCO3 28 H (21-25) mmol/L ABG Total CO2 30 H (19-24) mmol/L ABG O2 Saturation (94-97) % Hemoglobin (13.0-17.5) gm/dL Sodium 146 H (137-145) mmol/L Chloride 109 H (98-107) mmol/L BUN 39 H (9-20) mg/dL Creatinine 2.73 H (0.66-1.25) mg/dL Glucose 130 H (74-99) mg/dL POC Glucose (mg/dL) 174 H (70-110) mg/dL U Free [place] Ch (0.00-3.29) mg/dL U Free Lambda Light Ch (0.00-0.38) mg/dL 12/13/24 12/13/24 12/13/24 Range/Units 00:20 01:29 02:12 RBC (4.30-5.90) m/uL Hgb (13.0-17.5) gm/dL Hct (39.0-53.0) % MCV (80.0-100.0) fL Plt Count (150-450) k/uL Lymphocytes # (1.0-4.8) k/uL ABG pH 7.33 L (7.35-7.45) ABG pCO2 (35-45) mmHg ABG pO2 286 H (83-108) mmHg ABG HCO3 (21-25) mmol/L ABG Total CO2 25 H (19-24) mmol/L ABG O2 Saturation >100.0 H (94-97) % Hemoglobin 7.3 L (13.0-17.5) gm/dL Sodium 146 H (137-145) mmol/L Chloride 111 H (98-107) mmol/L BUN 41 H (9-20) mg/dL Creatinine 2.67 H (0.66-1.25) mg/dL Glucose 156 H (74-99) mg/dL POC Glucose (mg/dL) 190 H (70-110) mg/dL U Free [place] Ch (0.00-3.29) mg/dL U Free [place]ambda [place] Ch (0.00-0.38) mg/dL 12/13/24 12/13/24 Range/Units 02:48 05:24 RBC 2.04 L (4.30-5.90) m/uL Hgb 7.0 L (13.0-17.5) gm/dL Hct 21.3 L (39.0-53.0) % MCV 104.5 H (80.0-100.0) fL Plt Count 139 L (150-450) k/uL Lymphocytes # 0.3 L (1.0-4.8) k/uL ABG pH (7.35-7.45) ABG pCO2 (35-45) mmHg ABG pO2 139 H (83-108) mmHg ABG HCO3 (21-25) mmol/L ABG Total CO2 25 H (19-24) mmol/L ABG O2 Saturation 99.6 H (94-97) % Hemoglobin 7.3 L (13.0-17.5) gm/dL Sodium (137-145) mmol/L Chloride (98-107) mmol/L BUN (9-20) mg/dL Creatinine (0.66-1.25) mg/dL Glucose (74-99) mg/dL POC Glucose (mg/dL) (70-110) mg/dL U Free [place] Ch (0.00-3.29) mg/dL U Free Lambda Light Ch (0.00-0.38) mg/dL Assessment and Plan Assessment: Acute hypoxic respiratory failure required intubation and mechanical ventilation Large pleural effusion status post thoracocentesis. On 12/13 has breathing that worsened because of CHF and large pleural effusion and patient has to be placed on mechanical ventilation Iatrogenic right pneumothorax status post Thora vent placement, which was removed on 12/13 Multiple myeloma Acute kidney injury Hypercalcemia Chronic anemia Hypertension Hyperlipidemia Obstructive sleep apnea A-fib and RVR Plan: Patient transferred to the ICU Continue with intubation and mechanical ventilation as per pulmonary/critical care team On Lasix per coffee farmer Continue with Zosyn Continue with home dose of Eliquis Continue with the breathing treatment Pulmonary/cardiology team consult Renal ultrasound is reviewed which was basically unremarkable and hematology collagen and nephrology team are also on consult DVT prophylaxis: Eliquis GI prophylaxis: Pepcid Prognosis is guarded
[2024-12-13] MEDS: DEXTROSE 5% IN WATER 1,000 ML IV SCH (09:34)
--- NOTE | 2024-12-13 09:38 | P.PN ---
Subjective Patient is seen in follow-up for acute kidney injury. Patient became hypotensive last night and was transferred to the ICU. He is currently intuba harrison. On Levophed. On D5W. Vital signs are stable. On Levophed. General: No resting in bed. HEENT: Intubated. LUNGS: No audible rhonchi or wheezes. HEART: Rate and Rhythm are regular. ABDOMEN: Nontender. EXTREMITITES: No edema. Objective - Vital Signs Vital signs: Vital Signs Temp 98.3 F 12/13/24 08:00 Pulse 76 12/13/24 09:10 Resp 20 12/13/24 09:10 BP 106/52 12/13/24 09:00 Pulse Ox 97 12/13/24 09:00 FiO2 40 12/13/24 09:01 Intake & Output 12/12/24 12/13/24 12/13/24 18:59 06:59 18:59 Intake Total 2195.758 162.701 Output Total 300 750 75 Balance -300 1445.758 87.701 Weight 81.9 kg Intake: Intake, IV Titration 2195.758 162.701 Amount Magnesium Sulfate-D5w Pmx 100 1 gm In Dextrose/Water 1 100ml.bag @ 100 mls/hr IVPB ONCE ONE Rx#: [id number] Norepinephrine 4 mg In 80.5 109.911 Sodium Chloride 0.9% 250 ml @ 0.05 MCG/KG/MIN 16. 116 mls/hr IV .[id number] [facility] Rx#:[id number] Sodium Chloride 0.9% 1, 999 000 ml @ 999 mls/hr IV . Q1H1M ONE Rx#:[id number] Sodium Chloride 0.9% 1, 999 000 ml @ 999 mls/hr IV . Q1H1M ONE Rx#:[id number] propofoL 1,000 mg In 17.258 52.79 Empty Bag 1 bag @ 15 MCG/ KG/MIN 7.614 mls/hr IV . Q13H9M [facility] Rx#:[id number] Output: Urine 300 750 75 Other: Voiding Method External Catheter Diaper Incontinent # Bowel Movements 1 ABP, PAP, CO, CI - Last Documented Arterial Blood Pressure 116/39 - Labs CBC & Chem 7: 12/13/24 02:48 12/13/24 02:12 Labs: Abnormal Lab Results - Last 24 Hours (Table) 12/11/24 12/12/24 12/12/24 Range/Units 14:20 22:10 22:21 RBC (4.30-5.90) m/uL Hgb (13.0-17.5) gm/dL Hct (39.0-53.0) % MCV (80.0-100.0) fL Plt Count (150-450) k/uL Lymphocytes # (1.0-4.8) k/uL ABG pH 7.26 L (7.35-7.45) ABG pCO2 58 H (35-45) mmHg ABG pO2 80 L (83-108) mmHg ABG HCO3 26 H (21-25) mmol/L ABG Total CO2 28 H (19-24) mmol/L ABG O2 Saturation (94-97) % Hemoglobin 8.2 L (13.0-17.5) gm/dL Sodium (137-145) mmol/L Chloride (98-107) mmol/L BUN (9-20) mg/dL Creatinine (0.66-1.25) mg/dL Glucose (74-99) mg/dL POC Glucose (mg/dL) 137 H (70-110) mg/dL U Free [place] Ch 65.89 H (0.00-3.29) mg/dL U Free [place] Ch 1.09 H (0.00-0.38) mg/dL 12/12/24 12/13/24 12/13/24 Range/Units 22:24 00:03 00:08 RBC (4.30-5.90) m/uL Hgb (13.0-17.5) gm/dL Hct (39.0-53.0) % MCV (80.0-100.0) fL Plt Count (150-450) k/uL Lymphocytes # (1.0-4.8) k/uL ABG pH 7.08 L* (7.35-7.45) ABG pCO2 92 H* (35-45) mmHg ABG pO2 112 H (83-108) mmHg ABG HCO3 28 H (21-25) mmol/L ABG Total CO2 30 H (19-24) mmol/L ABG O2 Saturation (94-97) % Hemoglobin (13.0-17.5) gm/dL Sodium 146 H (137-145) mmol/L Chloride 109 H (98-107) mmol/L BUN 39 H (9-20) mg/dL Creatinine 2.73 H (0.66-1.25) mg/dL Glucose 130 H (74-99) mg/dL POC Glucose (mg/dL) 174 H (70-110) mg/dL U Free [place] Ch (0.00-3.29) mg/dL U Free [place]ambda Light Ch (0.00-0.38) mg/dL 12/13/24 12/13/24 12/13/24 Range/Units 00:20 01:29 02:12 RBC (4.30-5.90) m/uL Hgb (13.0-17.5) gm/dL Hct (39.0-53.0) % MCV (80.0-100.0) fL Plt Count (150-450) k/uL Lymphocytes # (1.0-4.8) k/uL ABG pH 7.33 L (7.35-7.45) ABG pCO2 (35-45) mmHg ABG pO2 286 H (83-108) mmHg ABG HCO3 (21-25) mmol/L ABG Total CO2 25 H (19-24) mmol/L ABG O2 Saturation >100.0 H (94-97) % Hemoglobin 7.3 L (13.0-17.5) gm/dL Sodium 146 H (137-145) mmol/L Chloride 111 H (98-107) mmol/L BUN 41 H (9-20) mg/dL Creatinine 2.67 H (0.66-1.25) mg/dL Glucose 156 H (74-99) mg/dL POC Glucose (mg/dL) 190 H (70-110) mg/dL U Free [place] Ch (0.00-3.29) mg/dL U Free [place]ambda Light Ch (0.00-0.38) mg/dL 12/13/24 12/13/24 Range/Units 02:48 05:24 RBC 2.04 L (4.30-5.90) m/uL Hgb 7.0 L (13.0-17.5) gm/dL Hct 21.3 L (39.0-53.0) % MCV 104.5 H (80.0-100.0) fL Plt Count 139 L (150-450) k/uL Lymphocytes # 0.3 L (1.0-4.8) k/uL ABG pH (7.35-7.45) ABG pCO2 (35-45) mmHg ABG pO2 139 H (83-108) mmHg ABG HCO3 (21-25) mmol/L ABG Total CO2 25 H (19-24) mmol/L ABG O2 Saturation 99.6 H (94-97) % Hemoglobin 7.3 L (13.0-17.5) gm/dL Sodium (137-145) mmol/L Chloride (98-107) mmol/L BUN (9-20) mg/dL Creatinine (0.66-1.25) mg/dL Glucose (74-99) mg/dL POC Glucose (mg/dL) (70-110) mg/dL U Free [place] Ch (0.00-3.29) mg/dL U Free Lambda Light Ch (0.00-0.38) mg/dL Assessment and Plan Plan: Assessment: 1. Acute kidney injury secondary to ATN. No hydronephrosis noted on imaging. UA fairly benign. Creatinine 1.4 on admission and is 2.67 today. Creatinine in July 2024 was 0.8. 2. Hypernatremia from lack of oral water intake. 3. Volume overload with pleural effusions. On Lasix. 4. Multiple myeloma. 5. Hypercalcemia secondary to volume contraction as well as multiple myeloma. 6. Pneumonia on antibiotics. 7. Anemia. Due to underlying multiple myeloma. Iron deficiency noted. Receiving IV iron. Plan: Maintain D5W. Stop oral Lasix. Add IV Lasix 40 mg once daily. Avoid nephrotoxins. Continue to monitor renal function and urine output. Wean FiO2 and vasopressors. Prognosis guarded.
[2024-12-13] MEDS: FUROSEMIDE 10 MG/ML 4 ML VIAL IV SCH (10:09)
--- NOTE | 2024-12-13 10:49 | P.PN ---
Subjective Progress Note Date: 12/13/24 Principal diagnosis: Pneumonia. Patient is a 79-year-old male with past medical history significant for hypertension, hyperlipidemia, KYM, multiple myeloma. His PCP is Dr. Jaimes. Also, follows with his oncologist Dr. Broderick. Patient had a bone marrow biopsy back on 11/11/2023 which was positive for multiple myeloma. Previously on systemic treatment, which he had stopped, apparently confused on whether he should continue the medication. Patient sent in by his oncologist yesterday for abnormal labs. On arrival, complaining of increased work of breathing over the last month. Occasional cough with mucus and occasional blood tinge. Workup in the ED including a chest CT angio which did not show any definite acute central pulmonary embolism, but technically limited due to suboptimal timing of contrast bolus. Overall, findings were consistent with disease progression. There was extensive soft tissue pleural metastatic deposits throughout bilateral lung henderson right greater than left. Extensive pleural metastatic disease in the left apex with involvement of the left first, second, and third ribs. Large right-sided pleural effusion and trace left-sided pleural effusion. Partially visualized upper abdomen demonstrating peritoneal carcinomatosis with large soft tissue implant in the left retroperitoneum measuring 6.4 x 4.1 cm. Bilateral hydronephrosis partially visualized. Enlarged retroperitoneal lymph node. Extensive osteolytic lesions throughout the visualized axial and appendicular skeleton compatible with osseous metastatic disease. CBC: WBC count 3.8, hemoglobin 9, platelets 134. CMP: Sodium 142, potassium 4, chloride 107, serum bicarb 21, BUN 40, creatinine 1.4, glucose 103. Lactic 1.2. Ionized calcium 5.4, magnesium 1.4, phosphorus 3.7. LFTs not elevated. Troponin 0.018. NT proBNP 1550. Viral screen negative for influenza, RSV, COVID. Patient currently being seen on the oncology floor. He is awake and alert, on 3 L/min nasal cannula, tachypneic in the mid 20s per minute. States he has been progressively more short of breath over the last month. States he uses 2 L supplemental oxygen hooked to his CPAP at bedtime. Denies chest pain, heart palpitations, lightheadedness or syncopal events, lower extremity edema. Does r eport occasional productive cough with brown mucus and occasional blood tinge. Denies any fevers, chills, chest pain, olivia hemoptysis. Denies known sick contacts. Appetite has been poor. Denies abdominal pain, nausea, vomiting, diarrhea, melena, hematochezia. Denies anticoagulant use. Denies history of previous thoracentesis. Patient was empirically covered on a combination of Zosyn and Levaquin in the ED. Current vital signs: Temperature 97.9 F, heart rate 100 bpm, blood pressure 145/66 mmHg, SpO2 recorded at 94% on 2 L/min nasal cannula. Patient was seen today on 12/07/2024, I had to move the patient earlier this morning to ICU as his right-sided pneumothorax showed some progression went from 10% to 30% overnight. Came into the ICU, and placed a Thora vent, 13 [place] in the right pleural space with complete resolution of his right-sided pneumothorax. And more bloody effusion was drained through the Thora vent shortly after the Thora vent was placed. Again there was complete resolution of his pneumothorax, and almost near complete resolution of his pleural effusion which was bloody all along. Patient is now on 4 L nasal cannula, in no distress, he is off heparin, and considering the bloody effusion, I will hold on anticoagulation therapy for now. Patient remains on amiodarone, bronchodilators/updrafts, he is also on Zosyn and Levaquin empirically. WBC count is 4.4 hemoglobin 8.5 electrolytes are normal BUN is 33 creatinine 1.74. The fluid I drained yesterday is clearly exudative with high LDH of 1400 and protein more than 3600 this is likely consistent with malignant pleural effusion most likely related to his multiple myeloma. Patient was seen today on 12/08/2024, remains in the ICU, continues to have Thora vent in place, patient had over 1200 cc of bloody effusion drained over the last 24 hours, and prior to this I have drained over 700 cc initially and the fluid was also bloody. This is most likely a pleural effusion related to multiple myeloma, cytology is pending. Patient remains empirically on antibiotics, however I went ahead and discontinued Levaquin on this patient, and I kept him on Zosyn as he seems to be developing some worsening of his renal status, patient is clinically dry dehydrated, and I am recommending increase of his IV f luid. Hemoglobin is 7.7 WBC count is 4.7 electrolytes are normal however creatinine went up to 1.92 from 1.74 yesterday, baseline on admission was 1.40. Patient remains off heparin mostly because of his bloody effusion, patient is on 3 L nasal cannula with O2 sats of 96%. Chest x-ray today was reviewed, I did not truly appreciate a pneumothorax on the chest x-ray today, and hardly any air leak is noted. Patient was seen today on 12/09/2024, remains in the ICU, continues to have Thora vent in place, and connected to Pleur-evac. No airleak is noted, minimal drainage overnight, less than 50 cc. No further air leak is noted, hence I went ahead and disconnected the Thora vent from Pleur-evac, and applied the one-way valve on the Thora vent. Patient is doing well, relatively asymptomatic, remains on IV fluid at 75 cc/h with slight improvement in his renal status, renal ultrasound showed no evidence of hydronephrosis. Patient remains on Zosyn, Eliquis is on hold, he is also on Seroquel. Chest x-ray will be repeated sometime later today to make sure the patient does not have any expansion of pneumothorax in the right lung. Continues to have some right lower lobe consolidation,, patient remains on antibiotics. The results on the pleural effusion are pending especially the cytology, the protein in the pleural effusion and the LDH suggest that it is malignant unless proven otherwise., It is definitely exudative. WBC count is 4.5 hemoglobin 7.4 electrolytes are normal BUN is 41 creatinine 1.75. Platelets are 1 27,000. Seen today on 12/10/2024, patient is now on medical floor, very comfortable, on 3 L nasal cannula, not in distress. Patient is hemodynamically stable blood pressure is 128/65, heart rate is 84, patient is afebrile. Temp is 97.6. Chest x-ray this morning was read by the ER physician as a left-sided pneumothorax which I reviewed myself, and I fully disagreed with the reading, this would have been a spontaneous left-sided pneumothorax, however follow-up chest x-ray was done and there was no evidence of pneumothorax on the left side. But both x-rays did reflect evidence of fluid overload and pulmonary edema with bilateral pleural effusions, has I recommended diuresing the patient further today. Yesterday he responded well to Lasix, and I am recommending another dose of Lasix 40 mg IV push to be given today. His Thora vent remains off suction, but he does have the one-way valve/occluding valve. And there is no evidence of pneumothorax on the right side. But again I believe the patient is building bilateral pleural effusions again. Cytology from his pleural effusion which I drained back on 12/07 is still pending I expect it to be related to multiple myeloma. Labs today showed relatively normal electrolytes BUN is 31 creatinine is up to 1.82 Progress note dated December 11, 2024. 79-year-old male seen today in room 363. The patient appears to. He was diagnosed with pneumonia on admission. He is currently on 3 L of oxygen. He is getting Zosyn, and is getting saline at 10 cc an hour. The patient had a right pneumothorax, and had a right Thora vent placed. The patient has a history of multiple myeloma, with acute mental status changes, possibly related to hypercalcemia. Apparently the patient was off his myeloma medications for a period of time. Current laboratory data includes a white count 5.2, hemoglobin 8.1, hematocrit 24.8, and a platelet count of 140,000. Sodium 147, potassium 3.8, chlorides 112, CO2 24, anion gap 11, BUN 32, creatinine 1.99. Glucose is 103. Calcium is 10. Magnesium is 1.9. Pleural fluid sampling has thus far negative. Chest x-ray shows persistent cardiomegaly, small left-sided pleural effusion, and a larger right sided effusion. Progress note dated December 12, 2024. 79-year-old male seen today in room 363. The patient's Thora vent was removed. A repeat chest x-ray has been ordered. He is getting D5W at 50 cc an hour, and nasal O2 at 2 L. A chest x-ray done before the Thora vent was removed, did not reveal a right-sided pneumothorax. The patient's right-sided pleural effusion appears smaller. Current laboratory data includes a sodium 145, potassium 3.8, chlorides 111, CO2 24, anion gap 10, BUN 34, and creatinine 2.03. Glucose is 104. Calcium 9.9, magnesium 1.9. Progress note dated December 13, 2024. 79-year-old male seen today in the intensive care unit, room 251. Last night, the patient developed respiratory distress, with hypercapnic and hypoxemic respiratory failure. We attempted BiPAP initially, and that did not turn things around, so the patient was electively intubated and transferred to the intensive care unit. That happened before midnight. The patient is on volume assist- control, rate 20, tidal line 450, FiO2 50% PEEP of 5. Blood gases show pO2 139, pCO2 41, pH is 7.37. The patient is currently on propofol at 20 mcg/kg/min, norepinephrine at 2.5 mcg/min and D5W at 75 cc an hour, which is started today. The patient was a full code, which is why he was electively intubated. An art line was placed by the nurse lock technician. Current labs include a white count 5.5, hemoglobin 7, hematocrit 21.3, and a platelet count of 139,000. Initial postintubation gases show pO2 of 286, pCO2 45, pH is 7.33. That was on 100%. Sodium 146, potassium 4, chlorides 111, CO2 24, anion gap 11, BUN 41, creatinine 2.67. Glucose of 156. Calcium 9.2. Magnesium 1.9. Chest x-ray shows cardiomegaly, with bilateral effusions, right greater than left. There is also some central vascular congestion demonstrated. Objective - Vital Signs Vital signs: Vital Signs Temp 98.3 F 12/13/24 08:00 Pulse 76 12/13/24 09:20 Resp 20 12/13/24 09:20 BP 106/52 12/13/24 09:00 Pulse Ox 97 12/13/24 09:00 FiO2 40 12/13/24 09:01 Intake & Output 12/12/24 12/13/24 12/13/24 18:59 06:59 18:59 Intake Total 2195.758 183.922 Output Total 300 750 75 Balance -300 1445.758 108.922 Weight 81.9 kg Intake: Intake, IV Titration 2195.758 183.922 Amount Magnesium Sulfate-D5w Pmx 100 1 gm In Dextrose/Water 1 100ml.bag @ 100 mls/hr IVPB ONCE ONE Rx#: [id number] Norepinephrine 4 mg In 80.5 131.132 Sodium Chloride 0.9% 250 ml @ 0.05 MCG/KG/MIN 16. 116 mls/hr IV .[id number] [facility] Rx#:[id number] Sodium Chloride 0.9% 1, 999 000 ml @ 999 mls/hr IV . Q1H1M ONE Rx#:[id number] Sodium Chloride 0.9% 1, 999 000 ml @ 999 mls/hr IV . Q1H1M ONE Rx#:[id number] propofoL 1,000 mg In 17.258 52.79 Empty Bag 1 bag @ 15 MCG/ KG/MIN 7.614 mls/hr IV . [id number] [facility] Rx#:[id number] Output: Urine 300 750 75 Other: Voiding Method External Catheter Diaper Incontinent # Bowel Movements 1 ABP, PAP, CO, CI - Last Documented Arterial Blood Pressure 116/39 - Exam No acute distress, sedated, with an orally placed endotracheal tube, and NG tube. HEENT examination is grossly unremarkable. Neck supple. Full range of motion. No adenopathy thyromegaly or neck vein distention. Cardiovascular examination reveals regular rhythm rate. S1-S2 normal. No S3 or S4. No discernible murmur noted. Heart sounds are distant. Lungs reveal diminished bilateral breath sounds, right greater than left. Scattered rhonchi are appreciated. No crackles. No wheezes. Abdomen soft bowel sounds are heard. No masses or tenderness. Extremities are intact. No cyanosis clubbing or edema. Skin is without rash or lesion. Neurologic examination cannot be evaluated as the patient is currently sedated. - Labs CBC & Chem 7: 12/13/24 02:48 12/13/24 02:12 Labs: Abnormal Lab Results - Last 24 Hours (Table) 12/11/24 12/12/24 12/12/24 Range/Units 14:20 22:10 22:21 RBC (4.30-5.90) m/uL Hgb (13.0-17.5) gm/dL Hct (39.0-53.0) % MCV (80.0-100.0) fL Plt Count (150-450) k/uL Lymphocytes # (1.0-4.8) k/uL ABG pH 7.26 L (7.35-7.45) ABG pCO2 58 H (35-45) mmHg ABG pO2 80 L (83-108) mmHg ABG HCO3 26 H (21-25) mmol/L ABG Total CO2 28 H (19-24) mmol/L ABG O2 Saturation (94-97) % Hemoglobin 8.2 L (13.0-17.5) gm/dL Sodium (137-145) mmol/L Chloride (98-107) mmol/L BUN (9-20) mg/dL Creatinine (0.66-1.25) mg/dL Glucose (74-99) mg/dL POC Glucose (mg/dL) 137 H (70-110) mg/dL U Free [place] Ch 65.89 H (0.00-3.29) mg/dL U Free Lambda Light Ch 1.09 H (0.00-0.38) mg/dL 12/12/24 12/13/24 12/13/24 Range/Units 22:24 00:03 00:08 RBC (4.30-5.90) m/uL Hgb (13.0-17.5) gm/dL Hct (39.0-53.0) % MCV (80.0-100.0) fL Plt Count (150-450) k/uL Lymphocytes # (1.0-4.8) k/uL ABG pH 7.08 L* (7.35-7.45) ABG pCO2 92 H* (35-45) mmHg ABG pO2 112 H (83-108) mmHg ABG HCO3 28 H (21-25) mmol/L ABG Total CO2 30 H (19-24) mmol/L ABG O2 Saturation (94-97) % Hemoglobin (13.0-17.5) gm/dL Sodium 146 H (137-145) mmol/L Chloride 109 H (98-107) mmol/L BUN 39 H (9-20) mg/dL Creatinine 2.73 H (0.66-1.25) mg/dL Glucose 130 H (74-99) mg/dL POC Glucose (mg/dL) 174 H (70-110) mg/dL U Free [place] Ch (0.00-3.29) mg/dL U Free Lambda Light Ch (0.00-0.38) mg/dL 12/13/24 12/13/24 12/13/24 Range/Units 00:20 01:29 02:12 RBC (4.30-5.90) m/uL Hgb (13.0-17.5) gm/dL Hct (39.0-53.0) % MCV (80.0-100.0) fL Plt Count (150-450) k/uL Lymphocytes # (1.0-4.8) k/uL ABG pH 7.33 L (7.35-7.45) ABG pCO2 (35-45) mmHg ABG pO2 286 H (83-108) mmHg ABG HCO3 (21-25) mmol/L ABG Total CO2 25 H (19-24) mmol/L ABG O2 Saturation >100.0 H (94-97) % Hemoglobin 7.3 L (13.0-17.5) gm/dL Sodium 146 H (137-145) mmol/L Chloride 111 H (98-107) mmol/L BUN 41 H (9-20) mg/dL Creatinine 2.67 H (0.66-1.25) mg/dL Glucose 156 H (74-99) mg/dL POC Glucose (mg/dL) 190 H (70-110) mg/dL U Free [place] Ch (0.00-3.29) mg/dL U Free Lambda Light Ch (0.00-0.38) mg/dL 12/13/24 12/13/24 Range/Units 02:48 05:24 RBC 2.04 L (4.30-5.90) m/uL Hgb 7.0 L (13.0-17.5) gm/dL Hct 21.3 L (39.0-53.0) % MCV 104.5 H (80.0-100.0) fL Plt Count 139 L (150-450) k/uL Lymphocytes # 0.3 L (1.0-4.8) k/uL ABG pH (7.35-7.45) ABG pCO2 (35-45) mmHg ABG pO2 139 H (83-108) mmHg ABG HCO3 (21-25) mmol/L ABG Total CO2 25 H (19-24) mmol/L ABG O2 Saturation 99.6 H (94-97) % Hemoglobin 7.3 L (13.0-17.5) gm/dL Sodium (137-145) mmol/L Chloride (98-107) mmol/L BUN (9-20) mg/dL Creatinine (0.66-1.25) mg/dL Glucose (74-99) mg/dL POC Glucose (mg/dL) (70-110) mg/dL U Free [place] Ch (0.00-3.29) mg/dL U Free Lambda Light Ch (0.00-0.38) mg/dL Assessment and Plan Assessment: Acute hypoxemic and hypercapnic respiratory failure, multifactorial, requiring intubation, and mechanical ventilation, on December 12, 2024. S/P right sided thoracentesis, with a right-sided iatrogenic pneumothorax. S/P right Thora vent placement, with removal on December 12, 2024. Multiple myeloma. Acute kidney injury with bilateral hydronephrosis. Hypercalcemia, resolved. Chronic anemia. Hypertension. History of hyperlipidemia. History of obstructive sleep apnea syndrome, maintained on home CPAP. Possible right lower lobe pneumonia. Plan: Plan dated December 11, 2024. The patient is seen today in room 363. He currently is on 3 L of oxygen. No respiratory distress. He sustained a right pneumothorax after thoracentesis. Right Thora vent device is in place. The Thora vent device will be capped. Currently he is got a one-way valve on the Thora vent device. He continues on Zosyn. He is getting saline at 10 cc an hour. The patient will have a repeat chest x-ray at 1:00 today. Additional recommendations and suggestions are forthcoming. Should his lungs stay expanded, the Thora vent device will be removed. Clinically, the patient is not in any respiratory distress. He is very confused. Family members are in the room. Findings are discussed. Plan dated December 12, 2024. The patient is seen today in room 363. He continues on nasal O2 at 2 L. He is getting D5W at 50 cc an hour. A chest x-ray this morning did not reveal right- sided pneumothorax. The pleural effusion appears smaller. The Thora vent device was removed. A repeat chest x-ray has been ordered. Clinically, the patient is confused, but stable. He is not manifesting any signs or symptoms of respiratory distress. He has been weaned down to 2 L from 3. Labs, x-rays, medications are reviewed. We will continue to follow. Prognosis is guarded. Dictation was produced using [employer] software. Please excuse any grammatical, word or spelling errors. Plan dated December 13, 2024. The patient developed hypoxemic and hypercapnic respiratory failure yesterday, and failed BiPAP intervention, and was electively intubated and mechanically ventilated, and brought to the intensive care unit. The patient remains on mechanical ventilator. He is on volume assist-control, rate 20, tidal volume 450, FiO2 50% to be reduced to 40%, with a PEEP of 5. Gases show pO2 139, pCO2 41 and pH is 7.37. He is on propofol at 20 mcg/kg/min, norepinephrine at 2.5 mcg/min. We will add D5W at 75 cc an hour. I attempted to speak to a family member, Amanda Ivan, at [phone], who apparently is making the decision along with the patient's , as it relates to medical issues. She apparently is on her way into the hospital. Prognosis is poor. He remains a full code. Labs, x-rays, medications are reviewed. Dictation was produced using [employer] dictation software. Please excuse any grammatical, word or spelling errors. Time with Patient: Greater than 30
[2024-12-13 11:40] LABS: Glucose,Whole Blood 108 mg/dL (70-110)
--- NOTE | 2024-12-13 16:52 | P.PN ---
Subjective Progress Note Date: 12/13/24 Patient seen in ICU at today's visit. Pt began having acute respiratory failure and required ventilation. CXR showing worsening diffuse lung edema and/or acute infiltrates. Wbc 5.5, hgb 7.0, plt 139. Creatinine 2.67, GFR 22 Objective - Vital Signs Vital signs: Vital Signs Temp 98.3 F 12/13/24 08:00 Pulse 73 12/13/24 11:15 Resp 21 12/13/24 11:15 BP 110/56 12/13/24 11:15 Pulse Ox 98 12/13/24 11:15 FiO2 40 12/13/24 09:01 Intake & Output 12/12/24 12/13/24 12/13/24 18:59 06:59 18:59 Intake Total 2195.758 333.922 Output Total 300 750 150 Balance -300 1445.758 183.922 Weight 81.9 kg Intake: Intake, IV Titration 2195.758 333.922 Amount Dextrose 5% in Water 1, 150 000 ml @ 75 mls/hr IV . [id number] [facility] Rx#:[id number] Magnesium Sulfate-D5w Pmx 100 1 gm In Dextrose/Water 1 100ml.bag @ 100 mls/hr IVPB ONCE [facility] Rx#: [id number] Norepinephrine 4 mg In 80.5 131.132 Sodium Chloride 0.9% 250 ml @ 0.05 MCG/KG/MIN 16. 116 mls/hr IV .[id number] [facility] Rx#:[id number] Sodium Chloride 0.9% 1, 999 000 ml @ 999 mls/hr IV . Q1H1M [facility] Rx#:[id number] Sodium Chloride 0.9% 1, 999 000 ml @ 999 mls/hr IV . Q1H1M [facility] Rx#:[id number] propofoL 1,000 mg In 17.258 52.79 Empty Bag 1 bag @ 15 MCG/ KG/MIN 7.614 mls/hr IV . Q13H9M [facility] Rx#:[id number] Output: Urine 300 750 150 Other: Voiding Method External Catheter Diaper Incontinent # Bowel Movements 1 ABP, PAP, CO, CI - Last Documented Arterial Blood Pressure 127/42 - Constitutional General appearance: Present: average body habitus, no acute distress - Respiratory Details: ventilated breath sounds - Cardiovascular Details: skin warm and dry - Integumentary Integumentary: Absent: cyanotic - Neurologic Neurologic Comment(s): sedated - Labs CBC & Chem 7: 12/13/24 02:48 12/13/24 02:12 Labs: Abnormal Lab Results - Last 24 Hours (Table) 12/11/24 12/12/24 12/12/24 Range/Units 14:20 22:10 22:21 RBC (4.30-5.90) m/uL Hgb (13.0-17.5) gm/dL Hct (39.0-53.0) % MCV (80.0-100.0) fL Plt Count (150-450) k/uL Lymphocytes # (1.0-4.8) k/uL ABG pH 7.26 L (7.35-7.45) ABG pCO2 58 H (35-45) mmHg ABG pO2 80 L (83-108) mmHg ABG HCO3 26 H (21-25) mmol/L ABG Total CO2 28 H (19-24) mmol/L ABG O2 Saturation (94-97) % Hemoglobin 8.2 L (13.0-17.5) gm/dL Sodium (137-145) mmol/L Chloride (98-107) mmol/L BUN (9-20) mg/dL Creatinine (0.66-1.25) mg/dL Glucose (74-99) mg/dL POC Glucose (mg/dL) 137 H (70-110) mg/dL U Free Angustura Light Ch 65.89 H (0.00-3.29) mg/dL U Free Lambda Light Ch 1.09 H (0.00-0.38) mg/dL 12/12/24 12/13/24 12/13/24 Range/Units 22:24 00:03 00:08 RBC (4.30-5.90) m/uL Hgb (13.0-17.5) gm/dL Hct (39.0-53.0) % MCV (80.0-100.0) fL Plt Count (150-450) k/uL Lymphocytes # (1.0-4.8) k/uL ABG pH 7.08 L* (7.35-7.45) ABG pCO2 92 H* (35-45) mmHg ABG pO2 112 H (83-108) mmHg ABG HCO3 28 H (21-25) mmol/L ABG Total CO2 30 H (19-24) mmol/L ABG O2 Saturation (94-97) % Hemoglobin (13.0-17.5) gm/dL Sodium 146 H (137-145) mmol/L Chloride 109 H (98-107) mmol/L BUN 39 H (9-20) mg/dL Creatinine 2.73 H (0.66-1.25) mg/dL Glucose 130 H (74-99) mg/dL POC Glucose (mg/dL) 174 H (70-110) mg/dL U Free Angustura Light Ch (0.00-3.29) mg/dL U Free Lambda Light Ch (0.00-0.38) mg/dL 12/13/24 12/13/24 12/13/24 Range/Units 00:20 01:29 02:12 RBC (4.30-5.90) m/uL Hgb (13.0-17.5) gm/dL Hct (39.0-53.0) % MCV (80.0-100.0) fL Plt Count (150-450) k/uL Lymphocytes # (1.0-4.8) k/uL ABG pH 7.33 L (7.35-7.45) ABG pCO2 (35-45) mmHg ABG pO2 286 H (83-108) mmHg ABG HCO3 (21-25) mmol/L ABG Total CO2 25 H (19-24) mmol/L ABG O2 Saturation >100.0 H (94-97) % Hemoglobin 7.3 L (13.0-17.5) gm/dL Sodium 146 H (137-145) mmol/L Chloride 111 H (98-107) mmol/L BUN 41 H (9-20) mg/dL Creatinine 2.67 H (0.66-1.25) mg/dL Glucose 156 H (74-99) mg/dL POC Glucose (mg/dL) 190 H (70-110) mg/dL U Free Angustura Light Ch (0.00-3.29) mg/dL U Free Lambda Light Ch (0.00-0.38) mg/dL 12/13/24 12/13/24 Range/Units 02:48 05:24 RBC 2.04 L (4.30-5.90) m/uL Hgb 7.0 L (13.0-17.5) gm/dL Hct 21.3 L (39.0-53.0) % MCV 104.5 H (80.0-100.0) fL Plt Count 139 L (150-450) k/uL Lymphocytes # 0.3 L (1.0-4.8) k/uL ABG pH (7.35-7.45) ABG pCO2 (35-45) mmHg ABG pO2 139 H (83-108) mmHg ABG HCO3 (21-25) mmol/L ABG Total CO2 25 H (19-24) mmol/L ABG O2 Saturation 99.6 H (94-97) % Hemoglobin 7.3 L (13.0-17.5) gm/dL Sodium (137-145) mmol/L Chloride (98-107) mmol/L BUN (9-20) mg/dL Creatinine (0.66-1.25) mg/dL Glucose (74-99) mg/dL POC Glucose (mg/dL) (70-110) mg/dL U Free Angustura Light Ch (0.00-3.29) mg/dL U Free Lambda Light Ch (0.00-0.38) mg/dL Assessment and Plan (1) Hypercalcemia Current Visit: Yes Status: Acute Priority: High Code(s): E83.52 - HYPERCALCEMIA SNOMED Code(s): 35182699 (2) Angustura light chain myeloma Current Visit: Yes Status: Acute Priority: High Code(s): C90.00 - MULTIPLE MYELOMA NOT HAVING ACHIEVED REMISSION SNOMED Code(s): 134078515 (3) New onset atrial fibrillation Current Visit: Yes Status: Acute Code(s): I48.91 - UNSPECIFIED ATRIAL FIBRILLATION SNOMED Code(s): 29233427 Plan: 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 -Completed 7 cycles of RVD in May 2024 achieving very good partial response with 99% reduction in kappa light chain -Had been on maintenance Revlimid 10 mg daily, which he stopped taking September 2024 for unclear reasons, he then developed progressive disease and symptoms of weakness, MICKEY, anemia, and thrombocytopenia -Admitted with failure to thrive with weakness, dehydration -CTA ruled out PE but reported pleural-based nodules with large right sided pleural effusion, peritoneal carcinomatosis, and retroperitoneal lymphadenopathy -720cc Right-sided thoracentesis performed, post procedure pneumo, thoravent placed. -Cytology positive for plasma cell myeloma -Urine kappa/lambda ratio elevated at 60.4, UPEP pending. Concern there is multi-organ involvement of his myeloma. Typically myeloma is rather chemo sensitive and can achieve a quick response. Also, pt responded very well to previous regimen. Discussed with family today about initiating CyBorD inpatient to try to achieve disease control. They were agreeable to the same. Will place chemo orders and plan to start treatment within the next 24-48 hours once drugs are received -Once he is outpatient, he can be transitioned back to oral Revlimid as his initial disease responded very well to Revlimid and did not progress on this. Diarrhea: -C-diff testing negative -Scheduled imodium started Hypercalcemia -Noted to have calcium of 10.5 on admission -Due to relapsed multiple myeloma -Received IV fluids with no significant elevation in his calcium subsequently -For now, we will hold off on bisphosphonate and continue to assess calcium -If he has progressive rise in calcium, bisphosphonate can be given Doctor attests: I performed a history and physical examination of this patient, developed impression and plan of care. Discussed with dictator. I agree with dictators note, documented as a scribe.
[2024-12-13 18:49] LABS: Glucose,Whole Blood 112 mg/dL (70-110)
[2024-12-14 00:49] LABS: Glucose,Whole Blood 112 mg/dL (70-110)
[2024-12-14 05:19] LABS: Basophils % (A) 1 %; Eosinophils # (A) 0.1 k/uL (0-0.7); Eosinophils % (A) 2 %; HCT 23.7 % (39.0-53.0); HGB 7.6 gm/dL (13.0-17.5); Hypochromasia Slight; Lymphocytes # (A) 1.1 k/uL (1.0-4.8); Lymphocytes % (A) 16 %; MCH 33.9 pg (25.0-35.0); MCHC 32.1 g/dL (31.0-37.0); MCV 105.5 fL (80.0-100.0); Macrocytosis Moderate; Mean Platelet Volume 9.6; Monocytes # (A) 0.8 k/uL (0-1.0); Monocytes % (A) 12 %; Neutrophils # (A) 4.4 k/uL (1.3-7.7); Neutrophils % (A) 67 %; Platelet Count 154 k/uL (150-450); RBC 2.25 m/uL (4.30-5.90); RDW 15.5 % (11.5-15.5); WBC 6.6 k/uL (3.8-10.6)
[2024-12-14 05:34] LABS: African American GFR (CKD) 19 (>60 ml/min/1.73 sqM); Anion Gap 11 mmol/L; Blood Urea Nitrogen 47 mg/dL (9-20); Calcium 9.2 mg/dL (8.4-10.2); Carbon Dioxide 21 mmol/L (22-30); Chloride 109 mmol/L (98-107); Glucose 102 mg/dL (74-99); Non-African American GFR(CKD) 17 (>60 ml/min/1.73 sqM); Potassium 3.5 mmol/L (3.5-5.1); Sodium 141 mmol/L (137-145)
[2024-12-14 05:52] LABS: ABG Base Excess -3.5 mmol/L; ABG HCO3 22 mmol/L (21-25); ABG Oxygen Saturation 97.3 % (94-97); ABG PCO2 40 mmHg (35-45); ABG PH 7.35 (7.35-7.45); ABG PO2 91 mmHg (83-108); ABG TCO2 23 mmol/L (19-24)
[2024-12-14 05:53] LABS: Allen Test Performed? no
[2024-12-14] MEDS: POTASSIUM BICARBONATE/CIT AC 20 MEQ TABLET.EFF NG-TUBE SCH (06:02)
[2024-12-14 06:13] LABS: Glucose,Whole Blood 114 mg/dL (70-110)
--- NOTE | 2024-12-14 06:21 | XR ---
EXAMINATION TYPE: XR chest 1V DATE OF EXAM: 12/14/2024 CLINICAL INDICATION: Male, 79 years old with history of Intubated, progress study. TECHNIQUE: Single AP portable semi-upright view of the chest is obtained. COMPARISON: Chest x-ray from one day earlier and older studies. FINDINGS: Stable endotracheal and orogastric tubes. Persistent Mild cardiomegaly with small to moderate-size right greater than left pleural effusions. P rominent left apical pleural thickening redemonstrated. Persistent right lung increased opacity and C entral vascular congestion again seen. Surgical changes right humerus is partially imaged IMPRESSION: Correlate for continued CHF exacerbation/fluid overload state. No significant change from one day earlier. Persistent diffuse right lung edema and/or acute infiltrates are noted. [facility], , 12/14/2024 6:18 AM
--- NOTE | 2024-12-14 09:36 | P.PN ---
Subjective Patient is seen in follow-up for acute kidney injury. Off vasopressors. Intubated. Chemo started today. Vital signs are stable. General: No resting in bed. HEENT: Intubated. LUNGS: No audible rhonchi or wheezes. HEART: Rate and Rhythm are regular. ABDOMEN: Nontender. EXTREMITITES: No edema. Objective - Vital Signs Vital signs: Vital Signs Temp 100.4 F H 12/14/24 08:00 Pulse 107 H 12/14/24 09:15 Resp 20 12/14/24 09:15 BP 107/54 12/14/24 09:15 Pulse Ox 97 12/14/24 09:15 FiO2 40 12/14/24 08:15 Intake & Output 12/13/24 12/14/24 12/14/24 18:59 06:59 18:59 Intake Total 1874.929 7538.671 175 Output Total 900 420 70 Balance 193.176 652.671 105 Weight 79.9 kg Intake: IV 825 175 Dextrose 5% in Water 1, 825 75 000 ml @ 75 mls/hr IV . [id number] [facility] Rx#:[id number] Sodium Ferric Gluconat- 100 Sucrose 125 mg In Sodium Chloride 0.9% 100 ml @ 100 mls/hr IVPB DAILY [facility] Rx#:[id number] Intake, IV Titration 1093.176 247.671 Amount Dextrose 5% in Water 1, 750 75 000 ml @ 75 mls/hr IV . [id number] [facility] Rx#:[id number] Norepinephrine 4 mg In 193.773 29.654 Sodium Chloride 0.9% 250 ml @ 0.05 MCG/KG/MIN 16. 116 mls/hr IV .[id number] [facility] Rx#:[id number] propofoL 1,000 mg In 149.403 143.017 Empty Bag 1 bag @ 15 MCG/ KG/MIN 7.614 mls/hr IV . Q13H9M [facility] Rx#:[id number] Output: Urine 900 420 70 Other: Voiding Method Indwelling Catheter Indwelling Catheter ABP, PAP, CO, CI - Last Documented Arterial Blood Pressure 134/42 - Labs CBC & Chem 7: 12/14/24 05:01 12/14/24 05:01 Labs: Abnormal Lab Results - Last 24 Hours (Table) 12/13/24 12/14/2412/14/25 Range/Units 18:47 00:47 05:01 RBC (4.30-5.90) m/uL Hgb (13.0-17.5) gm/dL Hct (39.0-53.0) % MCV (80.0-100.0) fL ABG O2 Saturation (94-97) % Hemoglobin (13.0-17.5) gm/dL Chloride 109 H (98-107) mmol/L Carbon Dioxide 21 L (22-30) mmol/L BUN 47 H (9-20) mg/dL Creatinine 3.30 H (0.66-1.25) mg/dL Glucose 102 H (74-99) mg/dL POC Glucose (mg/dL) 112 H 112 H (70-110) mg/dL 12/14/24 12/14/24 12/14/24 Range/Units 05:01 05:49 06:12 RBC 2.25 L (4.30-5.90) m/uL Hgb 7.6 L (13.0-17.5) gm/dL Hct 23.7 L (39.0-53.0) % MCV 105.5 H (80.0-100.0) fL ABG O2 Saturation 97.3 H (94-97) % Hemoglobin 7.6 L (13.0-17.5) gm/dL Chloride (98-107) mmol/L Carbon Dioxide (22-30) mmol/L BUN (9-20) mg/dL Creatinine (0.66-1.25) mg/dL Glucose (74-99) mg/dL POC Glucose (mg/dL) 114 H (70-110) mg/dL Microbiology - Last 24 Hours (Table) 12/13/24 01:10 Gram Stain - Preliminary Sputum Assessment and Plan Plan: Assessment: 1. Acute kidney injury secondary to ATN. No hydronephrosis noted on imaging. UA fairly benign. Creatinine 1.4 on admission and is 3.3 today. Urine output 20 to 40 cc an hour. Creatinine in July 2024 was 0.8. 2. Hypernatremia from lack of oral water intake. Improved with D5W. 3. Volume overload with pleural effusions. On Lasix. 4. Multiple myeloma. On chemotherapy. 5. Hypercalcemia secondary to volume contraction as well as multiple myeloma. Improved. 6. Pneumonia s/p antibiotics. 7. Anemia. Due to underlying multiple myeloma. Iron deficiency noted. Receiving IV iron. Plan: Stop D5W. Maintain IV Lasix. Avoid nephrotoxins. Continue to monitor renal function and urine output. Wean FiO2 and vasopressors. Prognosis guarded. Continue to assess daily for need for renal replacement therapy. Patient not an ideal candidate for renal replacement therapy Currently full code.
--- NOTE | 2024-12-14 10:00 | P.PN ---
Subjective Date of service for this note is 12/12/2024 patient is 79-year-old gentleman with past medical history significant for mul tiple myeloma, hypertension, hyperlipidemia presented to the ER because of abnormal labs. Patient normally sees Dr. Broderick and was on systemic treatment which apparently had stopped taking. Patient had blood work drawn outpatient and was told by the enterprise application administrator to come to the ER. Patient states over the last couple of days he has been having increasing shortness of breath. Shortness of breath was present at rest as on exertion. Patient was complaining of being lethargic and weakness. Patient also complaining of productive cough with occasional episodes of hemoptysis. Denies any chest pain. There is no complaint of fever or chills. There is no complaint of orthopnea or PND. Patient denies any nausea, vomiting, pain. Patient denies any lightheaded or dizziness. Initial lab work done in the ER showed WBC 3.8, hemoglobin 9, platelet count 134 sodium 142, potassium 4, BUN 40, creatinine 1.40 glucose 103, lactate 1.2, calcium 10.5, magnesium 1.4 bilirubin 0.7, AST 27, ALT 11, troponin 0.018, proBNP 1550 Influenza A not detected Influenza B not detected RSV not detected COVID-19 not detected EKG done in the ER showed heart rate of , no ST segment elevation or depression seen, no T-wave inversions seen. Chest x-ray done in the ER showed patchy infiltrative opacity throughout the right lung with small to moderate size right pleural effusion. Questionable air-fluid level versus overlying skinfold is indeterminate for cavitary lesion or abscess. Recommend CT chest for further evaluation, consolidation in the left lung apex CT chest PE protocol done showed no definite acute PE within the vasculature, significant progression of metastatic disease with numerous pleural-based metastatic deposits and involvement of the left-sided ribs additionally there is peritoneal carcinomatosis in the partially visualized upper abdomen. Patient admitted to internal medicine service 12/07. Patient seen and examined. Status post right-sided thoracentesis with removal of 720 cc of fluid. Blood work done today showed WBC 4.9, hemoglobin 8.8, platelet count 138, sodium 143, potassium 4.1, BUN 33, creatinine 1.74, calcium 9.7 Patient had right-sided Thora vent placed this morning. Currently on 4 L of oxygen. 12/08. Patient seen and examined. Vital signs done this morning showedTemp 98, heart rate 98, respirations 30, blood pressure 125/84, currently on 2 L of oxygen. Denies any shortness of breath at rest. Currently has a Thora vent in place. Chest x-ray done this morning shows right-sided pleural effusion, right- sided chest tube in place with residual pneumothorax. 12/09. Old male patient currently sleeping, he was agitated and restless overnight and he was prescribed Seroquel 25 mg which made him calm He still tachypneic with a breathing rate around 28, he is saturating high 90s on 3 L oxygen via nasal cannula Hemoglobin slightly trending down to 7.7 and creatinine up to 1.9 His proBNP is 1550 and procalcitonin negative at 0.16 Chest x-ray reviewed by myself showing right more than left infiltrate but looks better than 2 days ago Renal ultrasound showing no hydronephrosis finger right renal cyst He is currently kept on Zosyn. On home dose of Eliquis 2.5 mg. He had pneumothorax on the right side status post Thora vent, currently he has minimal discharge from his right Thora vent 12/10 Patient moved out of the ICU to select unit He is more awake today but still confused, he was trying to pull out his lines and Thora vent. He is mildly tachypneic with talking. He can tell he is in the hospital but also still mildly confused. Serevent was Today. Repeat chest x-ray showing mild improvement in the right pneumothorax, I reviewed the chest x-ray by myself. He remains on Zosyn and home dose of Eliquis 2.5 Will going to add small dose of Seroquel 12.5. 12/11 Patient more awake trying to talk Still feel short of breath although slightly better than yesterday, breathing rate around 22 compared to 28 yesterday, his right upper chest Thora vent is in place and capped Repeat chest x-ray this morning showing right pleural effusion more than left with pulmonary vascular congestion suspicious for CHF. Currently patient off IV fluid He is on Zosyn and Eliquis 2.5 mg. 12/12 Patient in the morning was awake and alert but slightly agitated, he had a sitter at bedside. Thora vent was taken out after it was capped yesterday. His mentation was getting worse through the day and he became more tachypneic and tachycardic and he has to be placed on BiPAP. Repeat chest x-ray showing moderate to large right pleural effusion and evidence of CHF. Patient was moved to the ICU for more monitoring pH was 7.2 worsening to early breastfeeding care specialist to 7.08 and pCO2 was elevated at 58 worsened to 92. Creatinine also worsened up to 2.7 and sodium 146., With worsening breathing patient had to be intubated and placed on mechanical ventilation 12/13 Patient remains in the ICU intubated and sedated His breathing more quiet today. Abdomen soft Hemoglobin dropped to 7.0. Platelet count stable at 139, creatinine stable or slightly improved 2.7 down to 2.6. Patient placed on normal saline 75 mL/h. 12/14 Patient remains intubated and sedated He does not need pressors and Zosyn was discontinued He received some IV fluid Chest x-ray still showing pulmonary vascular congestion Pathology from pleural fluid came back positive for malignancy Sister and at bedside, oncology team discussing the case with them. Patient still at risk. Objective - Vital Signs Vital signs: Vital Signs Temp 100.4 F H 12/14/24 08:00 Pulse 107 H 12/14/24 09:15 Resp 20 12/14/24 09:15 BP 107/54 12/14/24 09:15 Pulse Ox 97 12/14/24 09:15 FiO2 40 12/14/24 08:15 Intake & Output 12/13/24 12/14/24 12/14/24 18:59 06:59 18:59 Intake Total 2233.442 6503.671 175 Output Total 900 420 70 Balance 193.176 652.671 105 Weight 79.9 kg Intake: IV 825 175 Dextrose 5% in Water 1, 825 75 000 ml @ 75 mls/hr IV . [id number] [facility] Rx#:[id number] Sodium Ferric Gluconat- 100 Sucrose 125 mg In Sodium Chloride 0.9% 100 ml @ 100 mls/hr IVPB DAILY [facility] Rx#:[id number] Intake, IV Titration 1093.176 247.671 Amount Dextrose 5% in Water 1, 750 75 000 ml @ 75 mls/hr IV . [id number] [facility] Rx#:[id number] Norepinephrine 4 mg In 193.773 29.654 Sodium Chloride 0.9% 250 ml @ 0.05 MCG/KG/MIN 16. 116 mls/hr IV .[id number] [facility] Rx#:[id number] propofoL 1,000 mg In 149.403 143.017 Empty Bag 1 bag @ 15 MCG/ KG/MIN 7.614 mls/hr IV . Q13H9M [facility] Rx#:[id number] Output: Urine 900 420 70 Other: Voiding Method Indwelling Catheter Indwelling Catheter ABP, PAP, CO, CI - Last Documented Arterial Blood Pressure 134/42 - Exam -GENERAL: The patient is sleepy, not in any acute distress. Well developed, well nourished. HEENT: Pupils are round and equally reacting to light. EOMI. No scleral icterus. No conjunctival pallor. Normocephalic, atraumatic. No pharyngeal erythema. No th yromegaly. CARDIOVASCULAR: S1 and S2 present. No murmurs, rubs, or gallops. -PULMONARY: Chest is clear to auscultation, no wheezing , no crackles. Tachypneic, decreased breath sounds on the right side ABDOMEN: Soft, nontender, nondistended, normoactive bowel sounds. No palpable organomegaly. MUSCULOSKELETAL: No joint swelling or deformity. EXTREMITIES: No cyanosis, clubbing, or pedal edema. NEUROLOGICAL: Gross neurological examination did not reveal any focal deficits. SKIN: No rashes. no petechiae. Transfer to - Labs CBC & Chem 7: 12/14/24 05:01 12/14/24 05:01 Labs: Abnormal Lab Results - Last 24 Hours (Table) 12/13/24 12/14/24 12/14/24 Range/Units 18:47 00:47 05:01 RBC (4.30-5.90) m/uL Hgb (13.0-17.5) gm/dL Hct (39.0-53.0) % MCV (80.0-100.0) fL ABG O2 Saturation (94-97) % Hemoglobin (13.0-17.5) gm/dL Chloride 109 H (98-107) mmol/L Carbon Dioxide 21 L (22-30) mmol/L BUN 47 H (9-20) mg/dL Creatinine 3.30 H (0.66-1.25) mg/dL Glucose 102 H (74-99) mg/dL POC Glucose (mg/dL) 112 H 112 H (70-110) mg/dL 12/14/24 12/14/24 12/14/24 Range/Units 05:01 05:49 06:12 RBC 2.25 L (4.30-5.90) m/uL Hgb 7.6 L (13.0-17.5) gm/dL Hct 23.7 L (39.0-53.0) % MCV 105.5 H (80.0-100.0) fL ABG O2 Saturation 97.3 H (94-97) % Hemoglobin 7.6 L (13.0-17.5) gm/dL Chloride (98-107) mmol/L Carbon Dioxide (22-30) mmol/L BUN (9-20) mg/dL Creatinine (0.66-1.25) mg/dL Glucose (74-99) mg/dL POC Glucose (mg/dL) 114 H (70-110) mg/dL Microbiology - Last 24 Hours (Table) 12/13/24 01:10 Gram Stain - Preliminary Sputum Assessment and Plan Assessment: Acute hypoxic respiratory failure required intubation and mechanical ventilation Malignant large pleural effusion status post thoracocentesis. On 12/13 has breathing that worsened because of CHF and large pleural effusion and patient has to be placed on mechanical ventilation. Pathology sample came back positive for malignant cells Iatrogenic right pneumothorax status post Thora vent placement, which was remove d on 12/13 Multiple myeloma Acute kidney injury Hypercalcemia Chronic anemia Hypertension Hyperlipidemia Obstructive sleep apnea A-fib and RVR Plan: Continue patient care in the ICU Continue with intubation and mechanical ventilation as per pulmonary/critical care team On Lasix per restaurant hourly manager Antibiotics were discontinued Continue with home dose of Eliquis Continue with the breathing treatment Pulmonary/cardiology team consult Renal ultrasound is reviewed which was basically unremarkable and hematology collagen and nephrology team are also on consult DVT prophylaxis: Eliquis GI prophylaxis: Pepcid Prognosis is guarded
[2024-12-14] MEDS: dexAMETHasone 4 MG TAB PO SCH (10:17)
--- NOTE | 2024-12-14 10:23 | P.PN ---
Subjective Progress Note Date: 12/14/24 Principal diagnosis: Pneumonia. Patient is a 79-year-old male with past medical history significant for hypertension, hyperlipidemia, KYM, multiple myeloma. His PCP is Dr. Jaimes. Also, follows with his oncologist Dr. Broderick. Patient had a bone marrow biopsy back on 11/11/2023 which was positive for multiple myeloma. Previously on systemic treatment, which he had stopped, apparently confused on whether he should continue the medication. Patient sent in by his oncologist yesterday for abnormal labs. On arrival, complaining of increased work of breathing over the last month. Occasional cough with mucus and occasional blood tinge. Workup in the ED including a chest CT angio which did not show any definite acute central pulmonary embolism, but technically limited due to suboptimal timing of contrast bolus. Overall, findings were consistent with disease progression. There was extensive soft tissue pleural metastatic deposits throughout bilateral lung henderson right greater than left. Extensive pleural metastatic disease in the left apex with involvement of the left first, second, and third ribs. Large right-sided pleural effusion and trace left-sided pleural effusion. Partially visualized upper abdomen demonstrating peritoneal carcinomatosis with large soft tissue implant in the left retroperitoneum measuring 6.4 x 4.1 cm. Bilateral hydronephrosis partially visualized. Enlarged retroperitoneal lymph node. Extensive osteolytic lesions throughout the visualized axial and appendicular skeleton compatible with osseous metastatic disease. CBC: WBC count 3.8, hemoglobin 9, platelets 134. CMP: Sodium 142, potassium 4, chloride 107, serum bicarb 21, BUN 40, creatinine 1.4, glucose 103. Lactic 1.2. Ionized calcium 5.4, magnesium 1.4, phosphorus 3.7. LFTs not elevated. Troponin 0.018. NT proBNP 1550. Viral screen negative for influenza, RSV, COVID. Patient currently being seen on the oncology floor. He is awake and alert, on 3 L/min nasal cannula, tachypneic in the mid 20s per minute. States he has been progressively more short of breath over the last month. States he uses 2 L supplemental oxygen hooked to his CPAP at bedtime. Denies chest pain, heart palpitations, lightheadedness or syncopal events, lower extremity edema. Does r eport occasional productive cough with brown mucus and occasional blood tinge. Denies any fevers, chills, chest pain, olivia hemoptysis. Denies known sick contacts. Appetite has been poor. Denies abdominal pain, nausea, vomiting, diarrhea, melena, hematochezia. Denies anticoagulant use. Denies history of previous thoracentesis. Patient was empirically covered on a combination of Zosyn and Levaquin in the ED. Current vital signs: Temperature 97.9 F, heart rate 100 bpm, blood pressure 145/66 mmHg, SpO2 recorded at 94% on 2 L/min nasal cannula. Patient was seen today on 12/07/2024, I had to move the patient earlier this morning to ICU as his right-sided pneumothorax showed some progression went from 10% to 30% overnight. Came into the ICU, and placed a Thora vent, 13 Prydeinig in the right pleural space with complete resolution of his right-sided pneumothorax. And more bloody effusion was drained through the Thora vent shortly after the Thora vent was placed. Again there was complete resolution of his pneumothorax, and almost near complete resolution of his pleural effusion which was bloody all along. Patient is now on 4 L nasal cannula, in no distress, he is off heparin, and considering the bloody effusion, I will hold on anticoagulation therapy for now. Patient remains on amiodarone, bronchodilators/updrafts, he is also on Zosyn and Levaquin empirically. WBC count is 4.4 hemoglobin 8.5 electrolytes are normal BUN is 33 creatinine 1.74. The fluid I drained yesterday is clearly exudative with high LDH of 1400 and protein more than 3600 this is likely consistent with malignant pleural effusion most likely related to his multiple myeloma. Patient was seen today on 12/08/2024, remains in the ICU, continues to have Thora vent in place, patient had over 1200 cc of bloody effusion drained over the last 24 hours, and prior to this I have drained over 700 cc initially and the fluid was also bloody. This is most likely a pleural effusion related to multiple myeloma, cytology is pending. Patient remains empirically on antibiotics, however I went ahead and discontinued Levaquin on this patient, and I kept him on Zosyn as he seems to be developing some worsening of his renal status, patient is clinically dry dehydrated, and I am recommending increase of his IV f luid. Hemoglobin is 7.7 WBC count is 4.7 electrolytes are normal however creatinine went up to 1.92 from 1.74 yesterday, baseline on admission was 1.40. Patient remains off heparin mostly because of his bloody effusion, patient is on 3 L nasal cannula with O2 sats of 96%. Chest x-ray today was reviewed, I did not truly appreciate a pneumothorax on the chest x-ray today, and hardly any air leak is noted. Patient was seen today on 12/09/2024, remains in the ICU, continues to have Thora vent in place, and connected to Pleur-evac. No airleak is noted, minimal drainage overnight, less than 50 cc. No further air leak is noted, hence I went ahead and disconnected the Thora vent from Pleur-evac, and applied the one-way valve on the Thora vent. Patient is doing well, relatively asymptomatic, remains on IV fluid at 75 cc/h with slight improvement in his renal status, renal ultrasound showed no evidence of hydronephrosis. Patient remains on Zosyn, Eliquis is on hold, he is also on Seroquel. Chest x-ray will be repeated sometime later today to make sure the patient does not have any expansion of pneumothorax in the right lung. Continues to have some right lower lobe consolidation,, patient remains on antibiotics. The results on the pleural effusion are pending especially the cytology, the protein in the pleural effusion and the LDH suggest that it is malignant unless proven otherwise., It is definitely exudative. WBC count is 4.5 hemoglobin 7.4 electrolytes are normal BUN is 41 creatinine 1.75. Platelets are 1 27,000. Seen today on 12/10/2024, patient is now on medical floor, very comfortable, on 3 L nasal cannula, not in distress. Patient is hemodynamically stable blood pressure is 128/65, heart rate is 84, patient is afebrile. Temp is 97.6. Chest x-ray this morning was read by the ER physician as a left-sided pneumothorax which I reviewed myself, and I fully disagreed with the reading, this would have been a spontaneous left-sided pneumothorax, however follow-up chest x-ray was done and there was no evidence of pneumothorax on the left side. But both x-rays did reflect evidence of fluid overload and pulmonary edema with bilateral pleural effusions, has I recommended diuresing the patient further today. Yesterday he responded well to Lasix, and I am recommending another dose of Lasix 40 mg IV push to be given today. His Thora vent remains off suction, but he does have the one-way valve/occluding valve. And there is no evidence of pneumothorax on the right side. But again I believe the patient is building bilateral pleural effusions again. Cytology from his pleural effusion which I drained back on 12/07 is still pending I expect it to be related to multiple myeloma. Labs today showed relatively normal electrolytes BUN is 31 creatinine is up to 1.82 Progress note dated December 11, 2024. 79-year-old male seen today in room 363. The patient appears to. He was diagnosed with pneumonia on admission. He is currently on 3 L of oxygen. He is getting Zosyn, and is getting saline at 10 cc an hour. The patient had a right pneumothorax, and had a right Thora vent placed. The patient has a history of multiple myeloma, with acute mental status changes, possibly related to hypercalcemia. Apparently the patient was off his myeloma medications for a period of time. Current laboratory data includes a white count 5.2, hemoglobin 8.1, hematocrit 24.8, and a platelet count of 140,000. Sodium 147, potassium 3.8, chlorides 112, CO2 24, anion gap 11, BUN 32, creatinine 1.99. Glucose is 103. Calcium is 10. Magnesium is 1.9. Pleural fluid sampling has thus far negative. Chest x-ray shows persistent cardiomegaly, small left-sided pleural effusion, and a larger right sided effusion. Progress note dated December 12, 2024. 79-year-old male seen today in room 363. The patient's Thora vent was removed. A repeat chest x-ray has been ordered. He is getting D5W at 50 cc an hour, and nasal O2 at 2 L. A chest x-ray done before the Thora vent was removed, did not reveal a right-sided pneumothorax. The patient's right-sided pleural effusion appears smaller. Current laboratory data includes a sodium 145, potassium 3.8, chlorides 111, CO2 24, anion gap 10, BUN 34, and creatinine 2.03. Glucose is 104. Calcium 9.9, magnesium 1.9. Progress note dated December 13, 2024. 79-year-old male seen today in the intensive care unit, room 251. Last night, the patient developed respiratory distress, with hypercapnic and hypoxemic respiratory failure. We attempted BiPAP initially, and that did not turn things around, so the patient was electively intubated and transferred to the intensive care unit. That happened before midnight. The patient is on volume assist- control, rate 20, tidal line 450, FiO2 50% PEEP of 5. Blood gases show pO2 139, pCO2 41, pH is 7.37. The patient is currently on propofol at 20 mcg/kg/min, norepinephrine at 2.5 mcg/min and D5W at 75 cc an hour, which is started today. The patient was a full code, which is why he was electively intubated. An art line was placed by the nurse pipe fittings molder. Current labs include a white count 5.5, hemoglobin 7, hematocrit 21.3, and a platelet count of 139,000. Initial postintubation gases show pO2 of 286, pCO2 45, pH is 7.33. That was on 100%. Sodium 146, potassium 4, chlorides 111, CO2 24, anion gap 11, BUN 41, creatinine 2.67. Glucose of 156. Calcium 9.2. Magnesium 1.9. Chest x-ray shows cardiomegaly, with bilateral effusions, right greater than left. There is also some central vascular congestion demonstrated. Progress note dated December 14, 2024. 79-year-old male seen in the intensive care unit again, room 251. He remains on mechanical ventilator. He is on volume assist-control, rate 20, tidal volume 450, FiO2 40%, PEEP of 5. Blood gases show pO2 of 91, pCO2 of 40, pH is 7.35. He is on propofol at 30 mcg/kg/min, D5W at 75 cc an hour. I have asked the nurses and dietary to start tube feedings. The patient had a thoracentesis done by my partner in December 06. It was positive for plasma cell myeloma. The patient is going to get chemotherapy today, as per medical oncology, which I think is extremely risky, given how sick the patient is. White count 6.6, hemoglobin 7.6, hematocrit 23.7, platelet count 154,000. Sodium 141, potassium 3.5, chlorides 109, CO2 21, BUN 47, creatinine 3.30. Glucose is 114. Calcium 9.2, magnesium 2.0. Chest x-ray shows findings consistent with either fluid overload/CHF, or pneumonia. Objective - Vital Signs Vital signs: Vital Signs Temp 100.4 F H 12/14/24 08:00 Pulse 105 H 12/14/24 10:00 Resp 27 H 12/14/24 10:00 BP 106/49 12/14/24 10:00 Pulse Ox 96 12/14/24 10:00 FiO2 40 12/14/24 08:15 Intake & Output 12/13/24 12/14/24 12/14/24 18:59 06:59 18:59 Intake Total 7438.781 8357.671 175 Output Total 900 420 70 Balance 193.176 652.671 105 Weight 79.9 kg Intake: IV 825 175 Dextrose 5% in Water 1, 825 75 000 ml @ 75 mls/hr IV . [id number] [facility] Rx#:[id number] Sodium Ferric Gluconat- 100 Sucrose 125 mg In Sodium Chloride 0.9% 100 ml @ 100 mls/hr IVPB DAILY [facility] Rx#:[id number] Intake, IV Titration 1093.176 247.671 Amount Dextrose 5% in Water 1, 750 75 000 ml @ 75 mls/hr IV . [id number] [facility] Rx#:[id number] Norepinephrine 4 mg In 193.773 29.654 Sodium Chloride 0.9% 250 ml @ 0.05 MCG/KG/MIN 16. 116 mls/hr IV .[id number] [facility] Rx#:[id number] propofoL 1,000 mg In 149.403 143.017 Empty Bag 1 bag @ 15 MCG/ KG/MIN 7.614 mls/hr IV . [id number] [facility] Rx#:[id number] Output: Urine 900 420 70 Other: Voiding Method Indwelling Catheter Indwelling Catheter ABP, PAP, CO, CI - Last Documented Arterial Blood Pressure 124/40 - Exam No acute distress, sedated, with an orally placed endotracheal tube, and NG tube. HEENT examination is grossly unremarkable. Neck supple. Full range of motion. No adenopathy thyromegaly or neck vein distention. Cardiovascular examination reveals regular rhythm rate. S1-S2 normal. No S3 or S4. No discernible murmur noted. Heart sounds are distant. Lungs reveal diminished bilateral breath sounds, right greater than left. Scattered rhonchi are appreciated. No crackles. No wheezes. Abdomen soft bowel sounds are heard. No masses or tenderness. Extremities are intact. No cyanosis clubbing or edema. Skin is without rash or lesion. Neurologic examination cannot be evaluated as the patient is currently sedated. - Labs CBC & Chem 7: 12/14/24 05:01 12/14/24 05:01 Labs: Abnormal Lab Results - Last 24 Hours (Table) 12/13/24 12/14/24 12/14/24 Range/Units 18:47 00:47 05:01 RBC (4.30-5.90) m/uL Hgb (13.0-17.5) gm/dL Hct (39.0-53.0) % MCV (80.0-100.0) fL ABG O2 Saturation (94-97) % Hemoglobin (13.0-17.5) gm/dL Chloride 109 H (98-107) mmol/L Carbon Dioxide 21 L (22-30) mmol/L BUN 47 H (9-20) mg/dL Creatinine 3.30 H (0.66-1.25) mg/dL Glucose 102 H (74-99) mg/dL POC Glucose (mg/dL) 112 H 112 H (70-110) mg/dL 12/14/24 12/14/24 12/14/24 Range/Units 05:01 05:49 06:12 RBC 2.25 L (4.30-5.90) m/uL Hgb 7.6 L (13.0-17.5) gm/dL Hct 23.7 L (39.0-53.0) % MCV 105.5 H (80.0-100.0) fL ABG O2 Saturation 97.3 H (94-97) % Hemoglobin 7.6 L (13.0-17.5) gm/dL Chloride (98-107) mmol/L Carbon Dioxide (22-30) mmol/L BUN (9-20) mg/dL Creatinine (0.66-1.25) mg/dL Glucose (74-99) mg/dL POC Glucose (mg/dL) 114 H (70-110) mg/dL Microbiology - Last 24 Hours (Table) 12/13/24 01:10 Gram Stain - Preliminary Sputum Assessment and Plan Assessment: Acute hypoxemic and hypercapnic respiratory failure, multifactorial, requiring intubation, and mechanical ventilation, on December 12, 2024. S/P right sided thoracentesis, with a right-sided iatrogenic pneumothorax. S/P right Thora vent placement, with removal on December 12, 2024. Multiple myeloma. Acute kidney injury with bilateral hydronephrosis. Hypercalcemia, resolved. Chronic anemia. Hypertension. History of hyperlipidemia. History of obstructive sleep apnea syndrome, maintained on home CPAP. Possible right lower lobe pneumonia. Plan: Plan dated December 11, 2024. The patient is seen today in room 363. He currently is on 3 L of oxygen. No respiratory distress. He sustained a right pneumothorax after thoracentesis. Right Thora vent device is in place. The Thora vent device will be capped. Currently he is got a one-way valve on the Thora vent device. He continues on Zosyn. He is getting saline at 10 cc an hour. The patient will have a repeat chest x-ray at 1:00 today. Additional recommendations and suggestions are forthcoming. Should his lungs stay expanded, the Thora vent device will be removed. Clinically, the patient is not in any respiratory distress. He is very confused. Family members are in the room. Findings are discussed. Plan dated December 12, 2024. The patient is seen today in room 363. He continues on nasal O2 at 2 L. He is getting D5W at 50 cc an hour. A chest x-ray this morning did not reveal right- sided pneumothorax. The pleural effusion appears smaller. The Thora vent device was removed. A repeat chest x-ray has been ordered. Clinically, the patient is confused, but stable. He is not manifesting any signs or symptoms of respiratory distress. He has been weaned down to 2 L from 3. Labs, x-rays, medications are reviewed. We will continue to follow. Prognosis is guarded. Dictation was produced using [employer] software. Please excuse any grammatical, word or spelling errors. Plan dated December 13, 2024. The patient developed hypoxemic and hypercapnic respiratory failure yesterday, and failed BiPAP intervention, and was electively intubated and mechanically ventilated, and brought to the intensive care unit. The patient remains on mechanical ventilator. He is on volume assist-control, rate 20, tidal volume 450, FiO2 50% to be reduced to 40%, with a PEEP of 5. Gases show pO2 139, pCO2 41 and pH is 7.37. He is on propofol at 20 mcg/kg/min, norepinephrine at 2.5 mcg/min. We will add D5W at 75 cc an hour. I attempted to speak to a family member, Amanda Ivan, at [phone], who apparently is making the decision along with the patient's , as it relates to medical issues. She apparently is on her way into the hospital. Prognosis is poor. He remains a full code. Labs, x-rays, medications are reviewed. Dictation was produced using [employer] software. Please excuse any grammatical, word or spelling errors. Plan dated December 14, 2024. The patient is again seen in the intensive care unit, room 251. The patient's recently was weaned off norepinephrine. The patient is going to have tube feeds started, and he continues on D5W at 75 cc an hour. He is getting sedation with propofol at 30 mcg/kg/min. Thoracentesis performed on December 06, showed plasma cell myeloma. He is on the ventilator, gases show pO2 of 91, pCO2 of 40, pH of 7.35. His blood gases are consistent with a very mild metabolic acidosis. Medical oncology is planning on giving the patient chemotherapy today. I am a little concerned, as the patient is still critically ill, but I did discuss this with medical oncology who feels like this is the patient's only chance. Anyway, we will continue to support. I had a conversation with the patient's sister yesterday. At this point, the patient remains a full code. Prognosis is poor. Dictation was produced using [employer] software. Please excuse any grammatical, word or spelling errors. Time with Patient: Greater than 30
[2024-12-14] MEDS: IPRATROPIUM-ALBUTEROL 3 ML NEB INHALATION SCH (11:05)
[2024-12-14 11:41] LABS: Phosphorus 5.8 mg/dL (2.5-4.5)
[2024-12-14 11:56] LABS: Uric Acid 17.5 mg/dL (3.5-8.5)
[2024-12-14] MEDS: RASBURICASE 6 MG in SODIUM CHLORIDE 0.9% 46 ML IV STA (12:56)
[2024-12-14] MEDS: ONDANSETRON 16 MG in SODIUM CHLORIDE 0.9% 50 ML IVPB SCH (13:38)
[2024-12-14] MEDS: FAMOTIDINE 20 MG/2 ML VIAL IVP SCH (13:39)
[2024-12-14 13:48] LABS: Glucose,Whole Blood 156 mg/dL (70-110)
[2024-12-14] MEDS: BORTEZOMIB 3.5 MG VIAL SQ ONE (14:34)
--- NOTE | 2024-12-14 14:39 | P.PN ---
Subjective Progress Note Date: 12/14/24 Remains in ICU, ventilated and sedated. Plan to initiate inpt chemo today. Wbc 6.6, hgb 7.6, plt 154. Kidney function worsening today, Creatinine 3.3, GFR 17 Objective - Vital Signs Vital signs: Vital Signs Temp 100.4 F H 12/14/24 08:00 Pulse 102 H 12/14/24 11:05 Resp 26 H 12/14/24 11:00 BP 110/47 12/14/24 11:00 Pulse Ox 97 12/14/24 11:00 FiO2 40 12/14/24 11:06 Intake & Output 12/13/24 12/14/24 12/14/24 18:59 06:59 18:59 Intake Total 8823.016 8647.671 271.19 Output Total 900 420 70 Balance 193.176 652.671 201.19 Weight 79.9 kg 79.9 kg Intake: IV 825 175 Dextrose 5% in Water 1, 825 75 000 ml @ 75 mls/hr IV . [id number] [facility] Rx#:[id number] Sodium Ferric Gluconat- 100 Sucrose 125 mg In Sodium Chloride 0.9% 100 ml @ 100 mls/hr IVPB DAILY [facility] Rx#:[id number] Intake, IV Titration 1093.176 247.671 96.19 Amount Dextrose 5% in Water 1, 750 75 000 ml @ 75 mls/hr IV . [id number] [facility] Rx#:[id number] Norepinephrine 4 mg In 193.773 29.654 Sodium Chloride 0.9% 250 ml @ 0.05 MCG/KG/MIN 16. 116 mls/hr IV .[id number] [facility] Rx#:[id number] propofoL 1,000 mg In 149.403 143.017 96.19 Empty Bag 1 bag @ 15 MCG/ KG/MIN 7.614 mls/hr IV . [id number] [facility] Rx#:[id number] Output: Urine 900 420 70 Other: Voiding Method Indwelling Catheter Indwelling Catheter Indwelling Catheter ABP, PAP, CO, CI - Last Documented Arterial Blood Pressure 130/39 - Constitutional General appearance: Present: no acute distress - EENT Eyes: Present: anicteric sclerae, EOMI ENT: Present: hearing grossly normal - Respiratory Details: breathing is even and unlabored - Cardiovascular Details: skin warm and dry - Integumentary Integumentary: Absent: cyanotic, jaundiced - Neurologic Neurologic Comment(s): sedated - Musculoskeletal Musculoskeletal: Present: strength equal bilaterally - Psychiatric Psychiatric: Present: A&O x's 3 - Labs CBC & Chem 7: 12/14/24 05:01 12/14/24 05:01 Labs: Abnormal Lab Results - Last 24 Hours (Table) 12/13/24 12/14/24 12/14/24 Range/Units 18:47 00:47 05:01 RBC (4.30-5.90) m/uL Hgb (13.0-17.5) gm/dL Hct (39.0-53.0) % MCV (80.0-100.0) fL ABG O2 Saturation (94-97) % Hemoglobin (13.0-17.5) gm/dL Chloride 109 H (98-107) mmol/L Carbon Dioxide 21 L (22-30) mmol/L BUN 47 H (9-20) mg/dL Creatinine 3.30 H (0.66-1.25) mg/dL Glucose 102 H (74-99) mg/dL POC Glucose (mg/dL) 112 H 112 H (70-110) mg/dL 12/14/24 12/14/24 12/14/24 Range/Units 05:01 05:49 06:12 RBC 2.25 L (4.30-5.90) m/uL Hgb 7.6 L (13.0-17.5) gm/dL Hct 23.7 L (39.0-53.0) % MCV 105.5 H (80.0-100.0) fL ABG O2 Saturation 97.3 H (94-97) % Hemoglobin 7.6 L (13.0-17.5) gm/dL Chloride (98-107) mmol/L Carbon Dioxide (22-30) mmol/L BUN (9-20) mg/dL Creatinine (0.66-1.25) mg/dL Glucose (74-99) mg/dL POC Glucose (mg/dL) 114 H (70-110) mg/dL Microbiology - Last 24 Hours (Table) 12/13/24 01:10 Gram Stain - Preliminary Sputum Assessment and Plan (1) Hypercalcemia Current Visit: Yes Status: Acute Priority: High Code(s): E83.52 - HYPERCALCEMIA SNOMED Code(s): 12508782 (2) [place] light chain myeloma Current Visit: Yes Status: Acute Priority: High Code(s): C90.00 - MULTIPLE MYELOMA NOT HAVING ACHIEVED REMISSION SNOMED Code(s): 414012182 (3) New onset atrial fibrillation Current Visit: Yes Status: Acute Code(s): I48.91 - UNSPECIFIED ATRIAL FIBRILLATION SNOMED Code(s): 01897397 Plan: 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 -Completed 7 cycles of RVD in May 2024 achieving very good partial response with 99% reduction in kappa light chain -Had been on maintenance Revlimid 10 mg daily, which he stopped taking September 2024 for unclear reasons, he then developed progressive disease and symptoms of weakness, MICKEY, anemia, and thrombocytopenia -Admitted with failure to thrive with weakness, dehydration -CTA ruled out PE but reported pleural-based nodules with large right sided pleural effusion, peritoneal carcinomatosis, and retroperitoneal lymphadenopathy -720cc Right-sided thoracentesis performed, post procedure pneumo, thoravent sita maddy. -Cytology positive for plasma cell myeloma -Urine kappa/lambda ratio elevated at 60.4, UPEP positive for monoclonal protein. Concern there is multi-organ involvement of his myeloma. Typically myeloma is rather chemo sensitive and can achieve a quick response. Also, pt responded very well to previous regimen. Discussed with family about initiating CyBorD inpatient to try to achieve disease control. They were agreeable to the same. -Chemo orders have been placed. Plan to initiate CyBorD today -Once he is outpatient, he can be transitioned back to oral Revlimid as his initial disease responded very well to Revlimid and did not progress on this MICKEY: -Kidney function worsening. -Uric acid tested today, elevated at 17.5. Concern for TLS. Elitek ordered -Appears to be multifactorial, r/t to ATN, multiple myeloma involvement, and TLS -Nephrology following -Repeat uric acid in the morning Diarrhea: -C-diff testing negative -Scheduled imodium started Hypercalcemia -Noted to have calcium of 10.5 on admission -Due to relapsed multiple myeloma -Received IV fluids with no significant elevation in his calcium subsequently -For now, we will hold off on bisphosphonate and continue to assess calcium -If he has progressive rise in calcium, bisphosphonate can be given Doctor attests: I performed a history and physical examination of this patient, developed impression and plan of care. Discussed with dictator. I agree with dictators note, documented as a scribe.
[2024-12-14 17:50] LABS: Glucose,Whole Blood 213 mg/dL (70-110)
[2024-12-14 23:54] LABS: Glucose,Whole Blood 201 mg/dL (70-110)
[2024-12-15 05:11] LABS: Basophils % (A) 0 %; Eosinophils % (A) 0 %; HCT 22.9 % (39.0-53.0); HGB 7.4 gm/dL (13.0-17.5); Hypochromasia Moderate; Lymphocytes # (A) 0.3 k/uL (1.0-4.8); Lymphocytes % (A) 4 %; MCH 34.2 pg (25.0-35.0); MCHC 32.5 g/dL (31.0-37.0); MCV 105.3 fL (80.0-100.0); Macrocytosis Moderate; Mean Platelet Volume 10.6; Monocytes # (A) 0.6 k/uL (0-1.0); Monocytes % (A) 9 %; Neutrophils # (A) 6.3 k/uL (1.3-7.7); Neutrophils % (A) 87 %; Platelet Count 140 k/uL (150-450); RBC 2.17 m/uL (4.30-5.90); RDW 14.7 % (11.5-15.5); WBC 7.3 k/uL (3.8-10.6)
[2024-12-15 05:22] LABS: ALT 9 U/L (4-49); AST 22 U/L (17-59); African American GFR (CKD) 15 (>60 ml/min/1.73 sqM); Albumin 3.2 g/dL (3.5-5.0); Alkaline Phosphatase 52 U/L (38-126); Anion Gap 11 mmol/L; Blood Urea Nitrogen 67 mg/dL (9-20); Calcium 8.8 mg/dL (8.4-10.2); Carbon Dioxide 21 mmol/L (22-30); Chloride 107 mmol/L (98-107); Glucose 173 mg/dL (74-99); Non-African American GFR(CKD) 13 (>60 ml/min/1.73 sqM); Potassium 4.3 mmol/L (3.5-5.1); Sodium 139 mmol/L (137-145); Total Bilirubin 0.5 mg/dL (0.2-1.3); Total Protein 5.4 g/dL (6.3-8.2); Uric Acid 10.9 mg/dL (3.5-8.5)
[2024-12-15 05:32] LABS: Glucose,Whole Blood 183 mg/dL (70-110)
[2024-12-15 05:40] LABS: ABG Base Excess -4.9 mmol/L; ABG HCO3 21 mmol/L (21-25); ABG Oxygen Saturation 97.2 % (94-97); ABG PCO2 44 mmHg (35-45); ABG PH 7.29 (7.35-7.45); ABG PO2 93 mmHg (83-108); ABG TCO2 23 mmol/L (19-24)
[2024-12-15 05:41] LABS: Allen Test Performed? no
--- NOTE | 2024-12-15 07:00 | XR ---
EXAMINATION TYPE: XR chest 1V DATE OF EXAM: 12/15/2024 CLINICAL INDICATION: Male, 79 years old with history of Intubated, progress study. SOB. TECHNIQUE: Single AP portable semi-upright view of the chest is obtained. COMPARISON: Chest x-ray from one day earlier and older studies. FINDINGS: Stable endotracheal and orogastric tubes. Persistent small to moderate-size right greater than left pleural effusions. Prominent left apical pl eural thickening redemonstrated. Persistent right lung increased opacity and Central vascular congest ion again seen. Osseous structures are intact. IMPRESSION: . No significant change from one day earlier. Persistent diffuse right lung edema and/or acute infiltrates are noted. Persistent [id number] size right greater than left pleural effusi ons. [facility], , 12/15/2024 6:57 AM
--- NOTE | 2024-12-15 07:52 | P.PN ---
Subjective Date of service for this note is 12/12/2024 patient is 79-year-old gentleman with past medical history significant for mul tiple myeloma, hypertension, hyperlipidemia presented to the ER because of abnormal labs. Patient normally sees Dr. Broderick and was on systemic treatment which apparently had stopped taking. Patient had blood work drawn outpatient and was told by the outreach associate to come to the ER. Patient states over the last couple of days he has been having increasing shortness of breath. Shortness of breath was present at rest as on exertion. Patient was complaining of being lethargic and weakness. Patient also complaining of productive cough with occasional episodes of hemoptysis. Denies any chest pain. There is no complaint of fever or chills. There is no complaint of orthopnea or PND. Patient denies any nausea, vomiting, pain. Patient denies any lightheaded or dizziness. Initial lab work done in the ER showed WBC 3.8, hemoglobin 9, platelet count 134 sodium 142, potassium 4, BUN 40, creatinine 1.40 glucose 103, lactate 1.2, calcium 10.5, magnesium 1.4 bilirubin 0.7, AST 27, ALT 11, troponin 0.018, proBNP 1550 Influenza A not detected Influenza B not detected RSV not detected COVID-19 not detected EKG done in the ER showed heart rate of , no ST segment elevation or depression seen, no T-wave inversions seen. Chest x-ray done in the ER showed patchy infiltrative opacity throughout the right lung with small to moderate size right pleural effusion. Questionable air-fluid level versus overlying skinfold is indeterminate for cavitary lesion or abscess. Recommend CT chest for further evaluation, consolidation in the left lung apex CT chest PE protocol done showed no definite acute PE within the vasculature, significant progression of metastatic disease with numerous pleural-based metastatic deposits and involvement of the left-sided ribs additionally there is peritoneal carcinomatosis in the partially visualized upper abdomen. Patient admitted to internal medicine service 12/07. Patient seen and examined. Status post right-sided thoracentesis with removal of 720 cc of fluid. Blood work done today showed WBC 4.9, hemoglobin 8.8, platelet count 138, sodium 143, potassium 4.1, BUN 33, creatinine 1.74, calcium 9.7 Patient had right-sided Thora vent placed this morning. Currently on 4 L of oxygen. 12/08. Patient seen and examined. Vital signs done this morning showedTemp 98, heart rate 98, respirations 30, blood pressure 125/84, currently on 2 L of oxygen. Denies any shortness of breath at rest. Currently has a Thora vent in place. Chest x-ray done this morning shows right-sided pleural effusion, right- sided chest tube in place with residual pneumothorax. 12/09. Old male patient currently sleeping, he was agitated and restless overnight and he was prescribed Seroquel 25 mg which made him calm He still tachypneic with a breathing rate around 28, he is saturating high 90s on 3 L oxygen via nasal cannula Hemoglobin slightly trending down to 7.7 and creatinine up to 1.9 His proBNP is 1550 and procalcitonin negative at 0.16 Chest x-ray reviewed by myself showing right more than left infiltrate but looks better than 2 days ago Renal ultrasound showing no hydronephrosis finger right renal cyst He is currently kept on Zosyn. On home dose of Eliquis 2.5 mg. He had pneumothorax on the right side status post Thora vent, currently he has minimal discharge from his right Thora vent 12/10 Patient moved out of the ICU to select unit He is more awake today but still confused, he was trying to pull out his lines and Thora vent. He is mildly tachypneic with talking. He can tell he is in the hospital but also still mildly confused. Serevent was Today. Repeat chest x-ray showing mild improvement in the right pneumothorax, I reviewed the chest x-ray by myself. He remains on Zosyn and home dose of Eliquis 2.5 Will going to add small dose of Seroquel 12.5. 12/11 Patient more awake trying to talk Still feel short of breath although slightly better than yesterday, breathing rate around 22 compared to 28 yesterday, his right upper chest Thora vent is in place and capped Repeat chest x-ray this morning showing right pleural effusion more than left with pulmonary vascular congestion suspicious for CHF. Currently patient off IV fluid He is on Zosyn and Eliquis 2.5 mg. 12/12 Patient in the morning was awake and alert but slightly agitated, he had a sitter at bedside. Thora vent was taken out after it was capped yesterday. His mentation was getting worse through the day and he became more tachypneic and tachycardic and he has to be placed on BiPAP. Repeat chest x-ray showing moderate to large right pleural effusion and evidence of CHF. Patient was moved to the ICU for more monitoring pH was 7.2 worsening to early childhood worker to 7.08 and pCO2 was elevated at 58 worsened to 92. Creatinine also worsened up to 2.7 and sodium 146., With worsening breathing patient had to be intubated and placed on mechanical ventilation 12/13 Patient remains in the ICU intubated and sedated His breathing more quiet today. Abdomen soft Hemoglobin dropped to 7.0. Platelet count stable at 139, creatinine stable or slightly improved 2.7 down to 2.6. Patient placed on normal saline 75 mL/h. 12/14 Patient remains intubated and sedated He does not need pressors and Zosyn was discontinued He received some IV fluid Chest x-ray still showing pulmonary vascular congestion Pathology from pleural fluid came back positive for malignancy Sister and at bedside, oncology team discussing the case with them. Patient still at risk. 12/15 Patient remains intubated on mechanical ventilation in the ICU Family yesterday discussed the case with oncology team and patient remains full code and he was started on chemotherapy. Imodium can be stopped Chest x-ray showing persistent right-sided infiltrate most likely secondary to fluid and malignancy. Prognosis remains guarded and patient still high risk Objective - Vital Signs Vital signs: Vital Signs Temp 99.4 F 12/15/24 04:00 Pulse 106 H 12/15/24 07:00 Resp 21 12/15/24 07:00 BP 117/47 12/15/24 07:00 Pulse Ox 95 12/15/24 07:00 FiO2 40 12/15/24 04:00 Intake & Output 12/14/24 12/15/24 12/15/24 18:59 06:59 18:59 Intake Total 622.190 689.751 Output Total 210 295 Balance 412.190 394.751 Weight 79.9 kg 82.6 kg Intake: IV 196 36 0.9 21 36 Dextrose 5% in Water 1, 75 000 ml @ 75 mls/hr IV . [id number] [facility] Rx#:[id number] Sodium Ferric Gluconat- 100 Sucrose 125 mg In Sodium Chloride 0.9% 100 ml @ 100 mls/hr IVPB DAILY [facility]KY Rx#:[id number] Intake, IV Titration 196.190 183.751 Amount propofoL 1,000 mg In 196.190 183.751 Empty Bag 1 bag @ 15 MCG/ KG/MIN 7.614 mls/hr IV . [id number] [facility]KY Rx#:[id number] Tube Feeding 140 380 Other 90 90 Output: Urine 210 295 Other: Voiding Method Indwelling Catheter Indwelling Catheter ABP, PAP, CO, CI - Last Documented Arterial Blood Pressure 109/39 - Exam -GENERAL: The patient is sleepy, not in any acute distress. Well developed, well nourished. HEENT: Pupils are round and equally reacting to light. EOMI. No scleral icterus. No conjunctival pallor. Normocephalic, atraumatic. No pharyngeal erythema. No thyromegaly. CARDIOVASCULAR: S1 and S2 present. No murmurs, rubs, or gallops. -PULMONARY: Chest is clear to auscultation, no wheezing , no crackles. Tachypneic, decreased breath sounds on the right side ABDOMEN: Soft, nontender, nondistended, normoactive bowel sounds. No palpable organomegaly. MUSCULOSKELETAL: No joint swelling or deformity. EXTREMITIES: No cyanosis, clubbing, or pedal edema. NEUROLOGICAL: Gross neurological examination did not reveal any focal deficits. SKIN: No rashes. no petechiae. Transfer to - Labs CBC & Chem 7: 12/15/24 05:00 12/15/24 05:00 Labs: Abnormal Lab Results - Last 24 Hours (Table) 12/14/24 12/14/24 12/14/24 Range/Units 05:01 13:47 17:48 RBC (4.30-5.90) m/uL Hgb (13.0-17.5) gm/dL Hct (39.0-53.0) % MCV (80.0-100.0) fL Plt Count (150-450) k/uL Lymphocytes # (1.0-4.8) k/uL ABG pH (7.35-7.45) ABG O2 Saturation (94-97) % Hemoglobin (13.0-17.5) gm/dL Carbon Dioxide (22-30) mmol/L BUN (9-20) mg/dL Creatinine (0.66-1.25) mg/dL Glucose (74-99) mg/dL POC Glucose (mg/dL) 156 H 213 H (70-110) mg/dL Uric Acid 17.5 H* (3.5-8.5) mg/dL Phosphorus 5.8 H (2.5-4.5) mg/dL Total Protein (6.3-8.2) g/dL Albumin (3.5-5.0) g/dL 12/14/24 12/15/24 12/15/24 Range/Units 23:53 05:00 05:00 RBC 2.17 L (4.30-5.90) m/uL Hgb 7.4 L (13.0-17.5) gm/dL Hct 22.9 L (39.0-53.0) % MCV 105.3 H (80.0-100.0) fL Plt Count 140 L (150-450) k/uL Lymphocytes # 0.3 L (1.0-4.8) k/uL ABG pH (7.35-7.45) ABG O2 Saturation (94-97) % Hemoglobin (13.0-17.5) gm/dL Carbon Dioxide 21 L (22-30) mmol/L BUN 67 H (9-20) mg/dL Creatinine 4.11 H (0.66-1.25) mg/dL Glucose 173 H (74-99) mg/dL POC Glucose (mg/dL) 201 H (70-110) mg/dL Uric Acid 10.9 H (3.5-8.5) mg/dL Phosphorus 7.0 H (2.5-4.5) mg/dL Total Protein 5.4 L (6.3-8.2) g/dL Albumin 3.2 L (3.5-5.0) g/dL 12/15/24 12/15/24 Range/Units 05:30 05:40 RBC (4.30-5.90) m/uL Hgb (13.0-17.5) gm/dL Hct (39.0-53.0) % MCV (80.0-100.0) fL Plt Count (150-450) k/uL Lymphocytes # (1.0-4.8) k/uL ABG pH 7.29 L (7.35-7.45) ABG O2 Saturation 97.2 H (94-97) % Hemoglobin 7.2 L (13.0-17.5) gm/dL Carbon Dioxide (22-30) mmol/L BUN (9-20) mg/dL Creatinine (0.66-1.25) mg/dL Glucose (74-99) mg/dL POC Glucose (mg/dL) 183 H (70-110) mg/dL Uric Acid (3.5-8.5) mg/dL Phosphorus (2.5-4.5) mg/dL Total Protein (6.3-8.2) g/dL Albumin (3.5-5.0) g/dL Microbiology - Last 24 Hours (Table) 12/06/24 15:30 Acid Fast Bacilli Smear - Preliminary Pleural Fluid Acid Fast Bacilli Culture - Preliminary 12/13/24 01:10 Gram Stain - Preliminary Sputum Sputum Culture - Preliminary Assessment and Plan Assessment: Acute hypoxic respiratory failure required intubation and mechanical ventilation Malignant large pleural effusion status post thoracocentesis. On 12/13 has breathing that worsened because of CHF and large pleural effusion and patient has to be placed on mechanical ventilation. Pathology sample came back positive for malignant cells Iatrogenic right pneumothorax status post Thora vent placement, which was removed on 12/13 Multiple myeloma Acute kidney injury Hypercalcemia Chronic anemia Hypertension Hyperlipidemia Obstructive sleep apnea A-fib and RVR Plan: Continue patient care in the ICU Started chemotherapy on 12/15 Continue with intubation and mechanical ventilation as per pulmonary/critical care team On Lasix per computer systems consultant Antibiotics were discontinued Continue with home dose of Eliquis Continue with the breathing treatment Pulmonary/cardiology team consult Renal ultrasound is reviewed which was basically unremarkable and hematology collagen and nephrology team are also on consult DVT prophylaxis: Eliquis GI prophylaxis: Pepcid Prognosis is guarded
[2024-12-15] MEDS: FUROSEMIDE 10 MG/ML 10 ML VIAL IV STA (09:20)
--- NOTE | 2024-12-15 09:34 | P.PN ---
Subjective Patient is seen in follow-up for acute kidney injury. Remains off vasopressors. Intubated. Chemo started February 13, 2025. Urine output 20 to 30 cc an hour. Vital signs are stable. General: No resting in bed. HEENT: Intubated. 40% FiO2. LUNGS: No audible rhonchi or wheezes. HEART: Rate and Rhythm are regular. ABDOMEN: Nontender. EXTREMITITES: No edema. Objective - Vital Signs Vital signs: Vital Signs Temp 99.5 F 12/15/24 09:00 Pulse 109 H 12/15/24 09:00 Resp 20 12/15/24 09:00 BP 108/47 12/15/24 09:00 Pulse Ox 95 12/15/24 09:00 FiO2 40 12/15/24 09:00 Intake & Output 12/14/24 12/15/24 12/15/24 18:59 06:59 18:59 Intake Total 622.190 689.751 Output Total 210 295 Balance 412.190 394.751 Weight 79.9 kg 82.6 kg Intake: IV 196 36 0.9 21 36 Dextrose 5% in Water 1, 75 000 ml @ 75 mls/hr IV . [id number] [facility] Rx#:[id number] Sodium Ferric Gluconat- 100 Sucrose 125 mg In Sodium Chloride 0.9% 100 ml @ 100 mls/hr IVPB DAILY [facility] Rx#:[id number] Intake, IV Titration 196.190 183.751 Amount propofoL 1,000 mg In 196.190 183.751 Empty Bag 1 bag @ 15 MCG/ KG/MIN 7.614 mls/hr IV . [id number] [facility] Rx#:[id number] Tube Feeding 140 380 Other 90 90 Output: Urine 210 295 Other: Voiding Method Indwelling Catheter Indwelling Catheter ABP, PAP, CO, CI - Last Documented Arterial Blood Pressure 121/39 - Labs CBC & Chem 7: 12/15/24 05:00 12/15/24 05:00 Labs: Abnormal Lab Results - Last 24 Hours (Table) 12/14/24 12/14/24 12/14/24 Range/Units 05:01 13:47 17:48 RBC (4.30-5.90) m/uL Hgb (13.0-17.5) gm/dL Hct (39.0-53.0) % MCV (80.0-100.0) fL Plt Count (150-450) k/uL Lymphocytes # (1.0-4.8) k/uL ABG pH (7.35-7.45) ABG O2 Saturation (94-97) % Hemoglobin (13.0-17.5) gm/dL Carbon Dioxide (22-30) mmol/L BUN (9-20) mg/dL Creatinine (0.66-1.25) mg/dL Glucose (74-99) mg/dL POC Glucose (mg/dL) 156 H 213 H (70-110) mg/dL Uric Acid 17.5 H* (3.5-8.5) mg/dL Phosphorus 5.8 H (2.5-4.5) mg/dL Total Protein (6.3-8.2) g/dL Albumin (3.5-5.0) g/dL 12/14/24 12/15/24 12/15/24 Range/Units 23:53 05:00 05:00 RBC 2.17 L (4.30-5.90) m/uL Hgb 7.4 L (13.0-17.5) gm/dL Hct 22.9 L (39.0-53.0) % MCV 105.3 H (80.0-100.0) fL Plt Count 140 L (150-450) k/uL Lymphocytes # 0.3 L (1.0-4.8) k/uL ABG pH (7.35-7.45) ABG O2 Saturation (94-97) % Hemoglobin (13.0-17.5) gm/dL Carbon Dioxide 21 L (22-30) mmol/L BUN 67 H (9-20) mg/dL Creatinine 4.11 H (0.66-1.25) mg/dL Glucose 173 H (74-99) mg/dL POC Glucose (mg/dL) 201 H (70-110) mg/dL Uric Acid 10.9 H (3.5-8.5) mg/dL Phosphorus 7.0 H (2.5-4.5) mg/dL Total Protein 5.4 L (6.3-8.2) g/dL Albumin 3.2 L (3.5-5.0) g/dL 12/15/24 12/15/24 Range/Units 05:30 05:40 RBC (4.30-5.90) m/uL Hgb (13.0-17.5) gm/dL Hct (39.0-53.0) % MCV (80.0-100.0) fL Plt Count (150-450) k/uL Lymphocytes # (1.0-4.8) k/uL ABG pH 7.29 L (7.35-7.45) ABG O2 Saturation 97.2 H (94-97) % Hemoglobin 7.2 L (13.0-17.5) gm/dL Carbon Dioxide (22-30) mmol/L BUN (9-20) mg/dL Creatinine (0.66-1.25) mg/dL Glucose (74-99) mg/dL POC Glucose (mg/dL) 183 H (70-110) mg/dL Uric Acid (3.5-8.5) mg/dL Phosphorus (2.5-4.5) mg/dL Total Protein (6.3-8.2) g/dL Albumin (3.5-5.0) g/dL Microbiology - Last 24 Hours (Table) 12/06/24 15:30 Acid Fast Bacilli Smear - Preliminary Pleural Fluid Acid Fast Bacilli Culture - Preliminary 12/13/24 01:10 Gram Stain - Preliminary Sputum Sputum Culture - Preliminary Assessment and Plan Plan: Assessment: 1. Acute kidney injury secondary to ATN. No hydronephrosis noted on imaging. UA fairly benign. Creatinine 1.4 on admission and is 4.1 today. Urine output 20 to 30 cc an hour. Creatinine in July 2024 was 0.8. 2. Hypernatremia from lack of oral water intake. Improved with D5W. status post D5W. Improved. 3. Volume overload with pleural effusions. 4. Multiple myeloma. On chemotherapy. 5. Hypercalcemia secondary to volume contraction as well as multiple myeloma. Improved. 6. Pneumonia s/p antibiotics. 7. Anemia. Due to underlying multiple myeloma. Iron deficiency noted. Receiving IV iron. Plan: Lasix 80 mg IV once today. Avoid nephrotoxins. Continue to monitor renal function and urine output. Wean FiO2. Prognosis guarded. Continue to assess daily for need for renal replacement therapy. Patient not an ideal candidate for renal replacement therapy Currently full code.
--- NOTE | 2024-12-15 10:50 | P.PN ---
Subjective Progress Note Date: 12/15/24 Principal diagnosis: Pneumonia. Patient is a 79-year-old male with past medical history significant for hypertension, hyperlipidemia, KYM, multiple myeloma. His PCP is Dr. Jaimes. Also, follows with his oncologist Dr. Broderick. Patient had a bone marrow biopsy back on 11/11/2023 which was positive for multiple myeloma. Previously on systemic treatment, which he had stopped, apparently confused on whether he should continue the medication. Patient sent in by his oncologist yesterday for abnormal labs. On arrival, complaining of increased work of breathing over the last month. Occasional cough with mucus and occasional blood tinge. Workup in the ED including a chest CT angio which did not show any definite acute central pulmonary embolism, but technically limited due to suboptimal timing of contrast bolus. Overall, findings were consistent with disease progression. There was extensive soft tissue pleural metastatic deposits throughout bilateral lung henderson right greater than left. Extensive pleural metastatic disease in the left apex with involvement of the left first, second, and third ribs. Large right-sided pleural effusion and trace left-sided pleural effusion. Partially visualized upper abdomen demonstrating peritoneal carcinomatosis with large soft tissue implant in the left retroperitoneum measuring 6.4 x 4.1 cm. Bilateral hydronephrosis partially visualized. Enlarged retroperitoneal lymph node. Extensive osteolytic lesions throughout the visualized axial and appendicular skeleton compatible with osseous metastatic disease. CBC: WBC count 3.8, hemoglobin 9, platelets 134. CMP: Sodium 142, potassium 4, chloride 107, serum bicarb 21, BUN 40, creatinine 1.4, glucose 103. Lactic 1.2. Ionized calcium 5.4, magnesium 1.4, phosphorus 3.7. LFTs not elevated. Troponin 0.018. NT proBNP 1550. Viral screen negative for influenza, RSV, COVID. Patient currently being seen on the oncology floor. He is awake and alert, on 3 L/min nasal cannula, tachypneic in the mid 20s per minute. States he has been progressively more short of breath over the last month. States he uses 2 L supplemental oxygen hooked to his CPAP at bedtime. Denies chest pain, heart palpitations, lightheadedness or syncopal events, lower extremity edema. Does r eport occasional productive cough with brown mucus and occasional blood tinge. Denies any fevers, chills, chest pain, olivia hemoptysis. Denies known sick contacts. Appetite has been poor. Denies abdominal pain, nausea, vomiting, diarrhea, melena, hematochezia. Denies anticoagulant use. Denies history of previous thoracentesis. Patient was empirically covered on a combination of Zosyn and Levaquin in the ED. Current vital signs: Temperature 97.9 F, heart rate 100 bpm, blood pressure 145/66 mmHg, SpO2 recorded at 94% on 2 L/min nasal cannula. Patient was seen today on 12/07/2024, I had to move the patient earlier this morning to ICU as his right-sided pneumothorax showed some progression went from 10% to 30% overnight. Came into the ICU, and placed a Thora vent, 13 [place] in the right pleural space with complete resolution of his right-sided pneumothorax. And more bloody effusion was drained through the Thora vent shortly after the Thora vent was placed. Again there was complete resolution of his pneumothorax, and almost near complete resolution of his pleural effusion which was bloody all along. Patient is now on 4 L nasal cannula, in no distress, he is off heparin, and considering the bloody effusion, I will hold on anticoagulation therapy for now. Patient remains on amiodarone, bronchodilators/updrafts, he is also on Zosyn and Levaquin empirically. WBC count is 4.4 hemoglobin 8.5 electrolytes are normal BUN is 33 creatinine 1.74. The fluid I drained yesterday is clearly exudative with high LDH of 1400 and protein more than 3600 this is likely consistent with malignant pleural effusion most likely related to his multiple myeloma. Patient was seen today on 12/08/2024, remains in the ICU, continues to have Thora vent in place, patient had over 1200 cc of bloody effusion drained over the last 24 hours, and prior to this I have drained over 700 cc initially and the fluid was also bloody. This is most likely a pleural effusion related to multiple myeloma, cytology is pending. Patient remains empirically on antibiotics, however I went ahead and discontinued Levaquin on this patient, and I kept him on Zosyn as he seems to be developing some worsening of his renal status, patient is clinically dry dehydrated, and I am recommending increase of his IV f luid. Hemoglobin is 7.7 WBC count is 4.7 electrolytes are normal however creatinine went up to 1.92 from 1.74 yesterday, baseline on admission was 1.40. Patient remains off heparin mostly because of his bloody effusion, patient is on 3 L nasal cannula with O2 sats of 96%. Chest x-ray today was reviewed, I did not truly appreciate a pneumothorax on the chest x-ray today, and hardly any air leak is noted. Patient was seen today on 12/09/2024, remains in the ICU, continues to have Thora vent in place, and connected to Pleur-evac. No airleak is noted, minimal drainage overnight, less than 50 cc. No further air leak is noted, hence I went ahead and disconnected the Thora vent from Pleur-evac, and applied the one-way valve on the Thora vent. Patient is doing well, relatively asymptomatic, remains on IV fluid at 75 cc/h with slight improvement in his renal status, renal ultrasound showed no evidence of hydronephrosis. Patient remains on Zosyn, Eliquis is on hold, he is also on Seroquel. Chest x-ray will be repeated sometime later today to make sure the patient does not have any expansion of pneumothorax in the right lung. Continues to have some right lower lobe consolidation,, patient remains on antibiotics. The results on the pleural effusion are pending especially the cytology, the protein in the pleural effusion and the LDH suggest that it is malignant unless proven otherwise., It is definitely exudative. WBC count is 4.5 hemoglobin 7.4 electrolytes are normal BUN is 41 creatinine 1.75. Platelets are 1 27,000. Seen today on 12/10/2024, patient is now on medical floor, very comfortable, on 3 L nasal cannula, not in distress. Patient is hemodynamically stable blood pressure is 128/65, heart rate is 84, patient is afebrile. Temp is 97.6. Chest x-ray this morning was read by the ER physician as a left-sided pneumothorax which I reviewed myself, and I fully disagreed with the reading, this would have been a spontaneous left-sided pneumothorax, however follow-up chest x-ray was done and there was no evidence of pneumothorax on the left side. But both x-rays did reflect evidence of fluid overload and pulmonary edema with bilateral pleural effusions, has I recommended diuresing the patient further today. Yesterday he responded well to Lasix, and I am recommending another dose of Lasix 40 mg IV push to be given today. His Thora vent remains off suction, but he does have the one-way valve/occluding valve. And there is no evidence of pneumothorax on the right side. But again I believe the patient is building bilateral pleural effusions again. Cytology from his pleural effusion which I drained back on 12/07 is still pending I expect it to be related to multiple myeloma. Labs today showed relatively normal electrolytes BUN is 31 creatinine is up to 1.82 Progress note dated December 11, 2024. 79-year-old male seen today in room 363. The patient appears to. He was diagnosed with pneumonia on admission. He is currently on 3 L of oxygen. He is getting Zosyn, and is getting saline at 10 cc an hour. The patient had a right pneumothorax, and had a right Thora vent placed. The patient has a history of multiple myeloma, with acute mental status changes, possibly related to hypercalcemia. Apparently the patient was off his myeloma medications for a period of time. Current laboratory data includes a white count 5.2, hemoglobin 8.1, hematocrit 24.8, and a platelet count of 140,000. Sodium 147, potassium 3.8, chlorides 112, CO2 24, anion gap 11, BUN 32, creatinine 1.99. Glucose is 103. Calcium is 10. Magnesium is 1.9. Pleural fluid sampling has thus far negative. Chest x-ray shows persistent cardiomegaly, small left-sided pleural effusion, and a larger right sided effusion. Progress note dated December 12, 2024. 79-year-old male seen today in room 363. The patient's Thora vent was removed. A repeat chest x-ray has been ordered. He is getting D5W at 50 cc an hour, and nasal O2 at 2 L. A chest x-ray done before the Thora vent was removed, did not reveal a right-sided pneumothorax. The patient's right-sided pleural effusion appears smaller. Current laboratory data includes a sodium 145, potassium 3.8, chlorides 111, CO2 24, anion gap 10, BUN 34, and creatinine 2.03. Glucose is 104. Calcium 9.9, magnesium 1.9. Progress note dated December 13, 2024. 79-year-old male seen today in the intensive care unit, room 251. Last night, the patient developed respiratory distress, with hypercapnic and hypoxemic respiratory failure. We attempted BiPAP initially, and that did not turn things around, so the patient was electively intubated and transferred to the intensive care unit. That happened before midnight. The patient is on volume assist- control, rate 20, tidal line 450, FiO2 50% PEEP of 5. Blood gases show pO2 139, pCO2 41, pH is 7.37. The patient is currently on propofol at 20 mcg/kg/min, norepinephrine at 2.5 mcg/min and D5W at 75 cc an hour, which is started today. The patient was a full code, which is why he was electively intubated. An art line was placed by the nurse restoration officer. Current labs include a white count 5.5, hemoglobin 7, hematocrit 21.3, and a platelet count of 139,000. Initial postintubation gases show pO2 of 286, pCO2 45, pH is 7.33. That was on 100%. Sodium 146, potassium 4, chlorides 111, CO2 24, anion gap 11, BUN 41, creatinine 2.67. Glucose of 156. Calcium 9.2. Magnesium 1.9. Chest x-ray shows cardiomegaly, with bilateral effusions, right greater than left. There is also some central vascular congestion demonstrated. Progress note dated December 14, 2024. 79-year-old male seen in the intensive care unit again, room 251. He remains on mechanical ventilator. He is on volume assist-control, rate 20, tidal volume 450, FiO2 40%, PEEP of 5. Blood gases show pO2 of 91, pCO2 of 40, pH is 7.35. He is on propofol at 30 mcg/kg/min, D5W at 75 cc an hour. I have asked the nurses and dietary to start tube feedings. The patient had a thoracentesis done by my partner in December 06. It was positive for plasma cell myeloma. The patient is going to get chemotherapy today, as per medical oncology, which I think is extremely risky, given how sick the patient is. White count 6.6, hemoglobin 7.6, hematocrit 23.7, platelet count 154,000. Sodium 141, potassium 3.5, chlorides 109, CO2 21, BUN 47, creatinine 3.30. Glucose is 114. Calcium 9.2, magnesium 2.0. Chest x-ray shows findings consistent with either fluid overload/CHF, or pneumonia. Progress note dated December 15, 2024. 79-year-old male seen again in the intensive care unit, room 251. He remains on mechanical ventilation. He is on volume assist-control, rate 20, tidal volume 450, FiO2 40%, PEEP of 5. Blood gases show pO2 of 93, pCO2 44, pH of 7.29. The patient has a mild metabolic acidosis. He is getting propofol at 40 mcg/kg/min, vital HP at 40, with a goal of 65 cc an hour. No IV fluids. The patient may be developing tumor lysis syndrome as his uric acid is elevated as is his swati sphate. Apparently from 10 PM to 4 AM this morning, the patient did have atrial flutter, with a rate of about 100 bpm. Current labs include a white count of 7.3, hemoglobin 7.4, macro 22.9, and a platelet count of 140,000. Sodium 139, potassium 4.3, chlorides 107, CO2 21, anion gap 11, BUN 67, and creatinine 4.11. Glucose was 183. Calcium is 8.8. Uric acid is 10.9. Phosphorus is 7. Albumin is 3.2. Chest x-ray shows persistent diffuse right lung edema and/or infiltrates. The patient has a right greater than left pleural effusion. Objective - Vital Signs Vital signs: Vital Signs Temp 99.5 F 12/15/24 09:00 Pulse 108 H 12/15/24 10:00 Resp 27 H 12/15/24 10:00 BP 133/55 12/15/24 10:00 Pulse Ox 95 12/15/24 10:00 FiO2 40 12/15/24 09:00 Intake & Output 12/14/24 12/15/24 12/15/24 18:59 06:59 18:59 Intake Total 622.190 689.751 Output Total 210 295 Balance 412.190 394.751 Weight 79.9 kg 82.6 kg Intake: IV 196 36 0.9 21 36 Dextrose 5% in Water 1, 75 000 ml @ 75 mls/hr IV . [id number] [facility] Rx#:[id number] Sodium Ferric Gluconat- 100 Sucrose 125 mg In Sodium Chloride 0.9% 100 ml @ 100 mls/hr IVPB DAILY [facility] Rx#:[id number] Intake, IV Titration 196.190 183.751 Amount propofoL 1,000 mg In 196.190 183.751 Empty Bag 1 bag @ 15 MCG/ KG/MIN 7.614 mls/hr IV . [id number] [facility] Rx#:[id number] Tube Feeding 140 380 Other 90 90 Output: Urine 210 295 Other: Voiding Method Indwelling Catheter Indwelling Catheter Indwelling Catheter ABP, PAP, CO, CI - Last Documented Arterial Blood Pressure 135/40 - Exam No acute distress, sedated, with an orally placed endotracheal tube, and NG tube. HEENT examination is grossly unremarkable. Neck supple. Full range of motion. No adenopathy thyromegaly or neck vein distention. Cardiovascular examination reveals regular rhythm rate. S1-S2 normal. No S3 or S4. No discernible murmur noted. Heart sounds are distant. Lungs reveal diminished bilateral breath sounds, right greater than left. Scattered rhonchi are appreciated. No crackles. No wheezes. Abdomen soft bowel sounds are heard. No masses or tenderness. Extremities are intact. No cyanosis clubbing or edema. Skin is without rash or lesion. Neurologic examination cannot be evaluated as the patient is currently sedated. - Labs CBC & Chem 7: 12/15/24 05:00 12/15/24 05:00 Labs: Abnormal Lab Results - Last 24 Hours (Table) 12/14/24 12/14/24 12/14/24 Range/Units 05:01 13:47 17:48 RBC (4.30-5.90) m/uL Hgb (13.0-17.5) gm/dL Hct (39.0-53.0) % MCV (80.0-100.0) fL Plt Count (150-450) k/uL Lymphocytes # (1.0-4.8) k/uL ABG pH (7.35-7.45) ABG O2 Saturation (94-97) % Hemoglobin (13.0-17.5) gm/dL Carbon Dioxide (22-30) mmol/L BUN (9-20) mg/dL Creatinine (0.66-1.25) mg/dL Glucose (74-99) mg/dL POC Glucose (mg/dL) 156 H 213 H (70-110) mg/dL Uric Acid 17.5 H* (3.5-8.5) mg/dL Phosphorus 5.8 H (2.5-4.5) mg/dL Total Protein (6.3-8.2) g/dL Albumin (3.5-5.0) g/dL 12/14/24 12/15/24 12/15/24 Range/Units 23:53 05:00 05:00 RBC 2.17 L (4.30-5.90) m/uL Hgb 7.4 L (13.0-17.5) gm/dL Hct 22.9 L (39.0-53.0) % MCV 105.3 H (80.0-100.0) fL Plt Count 140 L (150-450) k/uL Lymphocytes # 0.3 L (1.0-4.8) k/uL ABG pH (7.35-7.45) ABG O2 Saturation (94-97) % Hemoglobin (13.0-17.5) gm/dL Carbon Dioxide 21 L (22-30) mmol/L BUN 67 H (9-20) mg/dL Creatinine 4.11 H (0.66-1.25) mg/dL Glucose 173 H (74-99) mg/dL POC Glucose (mg/dL) 201 H (70-110) mg/dL Uric Acid 10.9 H (3.5-8.5) mg/dL Phosphorus 7.0 H (2.5-4.5) mg/dL Total Protein 5.4 L (6.3-8.2) g/dL Albumin 3.2 L (3.5-5.0) g/dL 12/15/24 12/15/24 Range/Units 05:30 05:40 RBC (4.30-5.90) m/uL Hgb (13.0-17.5) gm/dL Hct (39.0-53.0) % MCV (80.0-100.0) fL Plt Count (150-450) k/uL Lymphocytes # (1.0-4.8) k/uL ABG pH 7.29 L (7.35-7.45) ABG O2 Saturation 97.2 H (94-97) % Hemoglobin 7.2 L (13.0-17.5) gm/dL Carbon Dioxide (22-30) mmol/L BUN (9-20) mg/dL Creatinine (0.66-1.25) mg/dL Glucose (74-99) mg/dL POC Glucose (mg/dL) 183 H (70-110) mg/dL Uric Acid (3.5-8.5) mg/dL Phosphorus (2.5-4.5) mg/dL Total Protein (6.3-8.2) g/dL Albumin (3.5-5.0) g/dL Microbiology - Last 24 Hours (Table) 12/06/24 15:30 Acid Fast Bacilli Smear - Preliminary Pleural Fluid Acid Fast Bacilli Culture - Preliminary 12/13/24 01:10 Gram Stain - Preliminary Sputum Sputum Culture - Preliminary Assessment and Plan Assessment: Acute hypoxemic and hypercapnic respiratory failure, multifactorial, requiring intubation, and mechanical ventilation, on December 12, 2024. S/P right sided thoracentesis, with a right-sided iatrogenic pneumothorax. S/P right Thora vent placement, with removal on December 12, 2024. Multiple myeloma. Acute kidney injury with bilateral hydronephrosis. Hypercalcemia, resolved. Chronic anemia. Hypertension. History of hyperlipidemia. History of obstructive sleep apnea syndrome, maintained on home CPAP. Possible right lower lobe pneumonia. Plan: Plan dated December 11, 2024. The patient is seen today in room 363. He currently is on 3 L of oxygen. No respiratory distress. He sustained a right pneumothorax after thoracentesis. Right Thora vent device is in place. The Thora vent device will be capped. Currently he is got a one-way valve on the Thora vent device. He continues on Zosyn. He is getting saline at 10 cc an hour. The patient will have a repeat chest x-ray at 1:00 today. Additional recommendations and suggestions are forthcoming. Should his lungs stay expanded, the Thora vent device will be removed. Clinically, the patient is not in any respiratory distress. He is very confused. Family members are in the room. Findings are discussed. Plan dated December 12, 2024. The patient is seen today in room 363. He continues on nasal O2 at 2 L. He is getting D5W at 50 cc an hour. A chest x-ray this morning did not reveal right- sided pneumothorax. The pleural effusion appears smaller. The Thora vent device was removed. A repeat chest x-ray has been ordered. Clinically, the patient is confused, but stable. He is not manifesting any signs or symptoms of respiratory distress. He has been weaned down to 2 L from 3. Labs, x-rays, medications are reviewed. We will continue to follow. Prognosis is guarded. Dictation was produced using Scope 5ation software. Please excuse any grammatical, word or spelling errors. Plan dated December 13, 2024. The patient developed hypoxemic and hypercapnic respiratory failure yesterday, and failed BiPAP intervention, and was electively intubated and mechanically ventilated, and brought to the intensive care unit. The patient remains on mechanical ventilator. He is on volume assist-control, rate 20, tidal volume 450, FiO2 50% to be reduced to 40%, with a PEEP of 5. Gases show pO2 139, pCO2 41 and pH is 7.37. He is on propofol at 20 mcg/kg/min, norepinephrine at 2.5 mcg/min. We will add D5W at 75 cc an hour. I attempted to speak to a family member, Amanda Ivan, at [phone], who apparently is making the decision along with the patient's , as it relates to medical issues. She apparently is on her way into the hospital. Prognosis is poor. He remains a full code. Labs, x-rays, medications are reviewed. Dictation was produced using Predictive[employer] software. Please excuse any grammatical, word or spelling errors. Plan dated December 14, 2024. The patient is again seen in the intensive care unit, room 251. The patient's recently was weaned off norepinephrine. The patient is going to have tube feeds started, and he continues on D5W at 75 cc an hour. He is getting sedation with propofol at 30 mcg/kg/min. Thoracentesis performed on December 06, showed plasma cell myeloma. He is on the ventilator, gases show pO2 of 91, pCO2 of 40, pH of 7.35. His blood gases are consistent with a very mild metabolic acidosis. Medical oncology is planning on giving the patient chemotherapy today. I am a little concerned, as the patient is still critically ill, but I did discuss this with medical oncology who feels like this is the patient's only chance. Anyway, we will continue to support. I had a conversation with the patient's sister yesterday. At this point, the patient remains a full code. Prognosis is poor. Dictation was produced using [employer] software. Please excuse any grammatical, word or spelling errors. Plan dated December 15, 2024. The patient did receive chemotherapy as per medical oncology. Labs, x-rays, and medications are reviewed. The patient's renal function is worsening. The patient may be developing tumor lysis syndrome. The patient does have a non- anion gap metabolic acidosis. Labs, x-rays, and all medications are reviewed. Prognosis is very poor in my opinion. The arterial blood gases show pO2 of 93, pCO2 of 44, pH of 7.29. The patient continues on propofol at 40 mcg/kg/min, and vital HP at 40 cc an hour, with a goal of 65 cc an hour. The patient did have episodes of atrial flutter last night. We will continue to follow. Prognosis is guarded. Dictation was produced using Scope 5ation software. Please exc use any grammatical, word or spelling errors. Time with Patient: Greater than 30
[2024-12-15 11:44] LABS: Glucose,Whole Blood 168 mg/dL (70-110)
--- NOTE | 2024-12-15 14:08 | P.PN ---
Subjective Progress Note Date: 12/15/24 Remains in ICU, ventilated and sedated. S/p inpt chemo yesterday. Continues on pulse dose dex. Wbc 7.3, hgb 7.4, plt 209. Kidney function worsening, Creatinine 4.11, GFR 13. Decreased UO. Discussing possible HD Objective - Vital Signs Vital signs: Vital Signs Temp 99.9 F H 12/15/24 12:00 Pulse 104 H 12/15/24 12:00 Resp 24 12/15/24 12:00 BP 118/51 12/15/24 12:00 Pulse Ox 95 12/15/24 12:00 FiO2 40 12/15/24 12:00 Intake & Output 12/14/24 12/15/24 12/15/24 18:59 06:59 18:59 Intake Total 622.190 689.751 375 Output Total 210 295 90 Balance 412.190 394.751 285 Weight 79.9 kg 82.6 kg Intake: IV 196 36 115 0.9 21 36 15 Dextrose 5% in Water 1, 75 000 ml @ 75 mls/hr IV . [id number] [facility] Rx#:[id number] Sodium Ferric Gluconat- 100 100 Sucrose 125 mg In Sodium Chloride 0.9% 100 ml @ 100 mls/hr IVPB DAILY [facility] Rx#:[id number] Intake, IV Titration 196.190 183.751 Amount propofoL 1,000 mg In 196.190 183.751 Empty Bag 1 bag @ 15 MCG/ KG/MIN 7.614 mls/hr IV . Q13H9M [facility] Rx#:[id number] Tube Feeding 140 380 200 Other 90 90 60 Output: Urine 210 295 90 Other: Voiding Method Indwelling Catheter Indwelling Catheter Indwelling Catheter ABP, PAP, CO, CI - Last Documented Arterial Blood Pressure 110/62 - Constitutional General appearance: Present: average body habitus, no acute distress - Respiratory Details: ventilated breath sounds - Cardiovascular Details: skin warm and dry - Integumentary Integumentary: Absent: cyanotic - Neurologic Neurologic Comment(s): sedated - Labs CBC & Chem 7: 12/15/24 05:00 12/15/24 05:00 Labs: Abnormal Lab Results - Last 24 Hours (Table) 12/14/24 12/14/24 12/14/24 Range/Units 13:47 17:48 23:53 RBC (4.30-5.90) m/uL Hgb (13.0-17.5) gm/dL Hct (39.0-53.0) % MCV (80.0-100.0) fL Plt Count (150-450) k/uL Lymphocytes # (1.0-4.8) k/uL ABG pH (7.35-7.45) ABG O2 Saturation (94-97) % Hemoglobin (13.0-17.5) gm/dL Carbon Dioxide (22-30) mmol/L BUN (9-20) mg/dL Creatinine (0.66-1.25) mg/dL Glucose (74-99) mg/dL POC Glucose (mg/dL) 156 H 213 H 201 H (70-110) mg/dL Uric Acid (3.5-8.5) mg/dL Phosphorus (2.5-4.5) mg/dL Total Protein (6.3-8.2) g/dL Albumin (3.5-5.0) g/dL 12/15/24 12/15/24 12/15/24 Range/Units 05:00 05:00 05:30 RBC 2.17 L (4.30-5.90) m/uL Hgb 7.4 L (13.0-17.5) gm/dL Hct 22.9 L (39.0-53.0) % MCV 105.3 H (80.0-100.0) fL Plt Count 140 L (150-450) k/uL Lymphocytes # 0.3 L (1.0-4.8) k/uL ABG pH (7.35-7.45) ABG O2 Saturation (94-97) % Hemoglobin (13.0-17.5) gm/dL Carbon Dioxide 21 L (22-30) mmol/L BUN 67 H (9-20) mg/dL Creatinine 4.11 H (0.66-1.25) mg/dL Glucose 173 H (74-99) mg/dL POC Glucose (mg/dL) 183 H (70-110) mg/dL Uric Acid 10.9 H (3.5-8.5) mg/dL Phosphorus 7.0 H (2.5-4.5) mg/dL Total Protein 5.4 L (6.3-8.2) g/dL Albumin 3.2 L (3.5-5.0) g/dL 12/15/24 12/15/24 Range/Units 05:40 11:43 RBC (4.30-5.90) m/uL Hgb (13.0-17.5) gm/dL Hct (39.0-53.0) % MCV (80.0-100.0) fL Plt Count (150-450) k/uL Lymphocytes # (1.0-4.8) k/uL ABG pH 7.29 L (7.35-7.45) ABG O2 Saturation 97.2 H (94-97) % Hemoglobin 7.2 L (13.0-17.5) gm/dL Carbon Dioxide (22-30) mmol/L BUN (9-20) mg/dL Creatinine (0.66-1.25) mg/dL Glucose (74-99) mg/dL POC Glucose (mg/dL) 168 H (70-110) mg/dL Uric Acid (3.5-8.5) mg/dL Phosphorus (2.5-4.5) mg/dL Total Protein (6.3-8.2) g/dL Albumin (3.5-5.0) g/dL Microbiology - Last 24 Hours (Table) 12/06/24 15:30 Acid Fast Bacilli Smear - Preliminary Pleural Fluid Acid Fast Bacilli Culture - Preliminary 12/13/24 01:10 Gram Stain - Preliminary Sputum Sputum Culture - Preliminary Assessment and Plan (1) Hypercalcemia Current Visit: Yes Status: Acute Priority: High Code(s): E83.52 - HYPERCALCEMIA SNOMED Code(s): 06288254 (2) Kennard light chain myeloma Current Visit: Yes Status: Acute Priority: High Code(s): C90.00 - MULTIPLE MYELOMA NOT HAVING ACHIEVED REMISSION SNOMED Code(s): 825427196 (3) New onset atrial fibrillation Current Visit: Yes Status: Acute Code(s): I48.91 - UNSPECIFIED ATRIAL FIBRIL LATION SNOMED Code(s): 30276061 Plan: 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 -Completed 7 cycles of RVD in May 2024 achieving very good partial response with 99% reduction in kappa light chain -Had been on maintenance Revlimid 10 mg daily, which he stopped taking September 2024 for unclear reasons, he then developed progressive disease and symptoms of weakness, MICKEY, anemia, and thrombocytopenia -Admitted with failure to thrive with weakness, dehydration -CTA ruled out PE but reported pleural-based nodules with large right sided pleural effusion, peritoneal carcinomatosis, and retroperitoneal lymphadenopathy -720cc Right-sided thoracentesis performed, post procedure pneumo, thoravent placed. -Cytology positive for plasma cell myeloma -Urine kappa/lambda ratio elevated at 60.4, UPEP positive for monoclonal protein. Concern there is multi-organ involvement of his myeloma. Typically myeloma is rather chemo sensitive and can achieve a quick response. Also, pt responded very well to previous regimen. Discussed with family about initiating CyBorD inpatient to try to achieve disease control. They were agreeable to the same. -Chemo orders have been placed. S/p CyBorD on 12/14. Will continue to closely monitor patient's course of hospitalization -Once he is outpatient, he can be transitioned back to oral Revlimid as his initial disease responded very well to Revlimid and did not progress on this MICKEY: -Kidney function worsening. Considering HD -Uric acid elevated at 17.5. S/p 1 dose Elitek. Uric acid 10.9 today -Appears to be multifactorial, r/t to ATN, multiple myeloma involvement, and possible component of TLS, although TLS is rare with MM -Nephrology following -Repeat uric acid in the morning Diarrhea: -C-diff testing negative -Scheduled imodium started Hypercalcemia -Noted to have calcium of 10.5 on admission -Due to relapsed multiple myeloma -Received IV fluids with no significant elevation in his calcium subsequently -For now, we will hold off on bisphosphonate and continue to assess calcium -If he has progressive rise in calcium, bisphosphonate can be given Doctor attests: I performed a history and physical examination of this patient, developed impression and plan of care. Discussed with dictator. I agree with dictators note, documented as a scribe.
[2024-12-15] MEDS: HYDROmorphone 1 MG/ML 1 ML SYRINGE IVP PRN (15:23)
[2024-12-15 17:34] LABS: Glucose,Whole Blood 196 mg/dL (70-110)
[2024-12-15] MEDS ORDERED: DEXTROSE 50% SYRINGE 50 ML IVP PRN ×2 (19:22)
[2024-12-15 20:02] LABS: Glucose,Whole Blood 196 mg/dL (70-110)
[2024-12-15] MEDS: INSULIN LISPRO (HumaLOG) 100 UNIT/ML 10 mL VL SQ SCH (20:24)
[2024-12-16 00:02] LABS: Glucose,Whole Blood 190 mg/dL (70-110)
[2024-12-16 04:13] LABS: ABG HCO3 20 mmol/L (21-25); ABG Oxygen Saturation 98.4 % (94-97); ABG PCO2 46 mmHg (35-45); ABG PH 7.25 (7.35-7.45); ABG PO2 111 mmHg (83-108); ABG TCO2 21 mmol/L (19-24)
[2024-12-16 04:14] LABS: Allen Test Performed? No
[2024-12-16 05:03] LABS: Basophils % (A) 0 %; Eosinophils % (A) 0 %; HCT 23.1 % (39.0-53.0); HGB 7.3 gm/dL (13.0-17.5); Hypochromasia Marked; Lymphocytes # (A) 0.4 k/uL (1.0-4.8); Lymphocytes % (A) 3 %; MCH 33.7 pg (25.0-35.0); MCHC 31.8 g/dL (31.0-37.0); MCV 106.1 fL (80.0-100.0); Macrocytosis Moderate; Monocytes # (A) 0.9 k/uL (0-1.0); Monocytes % (A) 6 %; Neutrophils # (A) 12.3 k/uL (1.3-7.7); Neutrophils % (A) 90 %; Platelet Count 142 k/uL (150-450); RBC 2.18 m/uL (4.30-5.90); RDW 14.9 % (11.5-15.5); WBC 13.6 k/uL (3.8-10.6)
[2024-12-16 05:18] LABS: ALT 7 U/L (4-49); AST 18 U/L (17-59); Albumin 3.3 g/dL (3.5-5.0); Alkaline Phosphatase 49 U/L (38-126); Anion Gap 17 mmol/L; Blood Urea Nitrogen 100 mg/dL (9-20); Calcium 8.5 mg/dL (8.4-10.2); Carbon Dioxide 18 mmol/L (22-30); Chloride 105 mmol/L (98-107); Glucose 151 mg/dL (74-99); Potassium 5.2 mmol/L (3.5-5.1); Sodium 140 mmol/L (137-145); Total Bilirubin 0.4 mg/dL (0.2-1.3); Total Protein 5.5 g/dL (6.3-8.2); Uric Acid 8.6 mg/dL (3.5-8.5)
[2024-12-16 05:24] LABS: African American GFR (CKD) 13 (>60 ml/min/1.73 sqM); Non-African American GFR(CKD) 11 (>60 ml/min/1.73 sqM)
[2024-12-16 05:56] LABS: Phosphorus 11.1 mg/dL (2.5-4.5)
[2024-12-16 06:29] LABS: Glucose,Whole Blood 168 mg/dL (70-110)
--- NOTE | 2024-12-16 06:37 | XR ---
EXAMINATION TYPE: XR chest 1V portable DATE OF EXAM: 12/16/2024 COMPARISON: 12/13/2024 CLINICAL INDICATION: Male, 79 years old with history of intubated; TECHNIQUE: Single frontal view of the chest is obtained. FINDINGS: The ET tube is 6 cm above the cleve. There is an NG tube within the stomach No change in acute cardiopulmonary disease. There is a moderate stable right pleural effusion and sta ble small left pleural effusion. Stable pulmonary vascular congestion and scattered airspace consolid ation in the right lung consistent with pulmonary edema. There is no pneumothorax. IMPRESSION: Acute cardiopulmonary disease most consistent with CHF unchanged compared to the prior study. ET tube 6 cm above the cleve. [facility], , 12/16/2024 6:35 AM
--- NOTE | 2024-12-16 07:48 | P.PN ---
Subjective Date of service for this note is 12/12/2024 patient is 79-year-old gentleman with past medical history significant for mul tiple myeloma, hypertension, hyperlipidemia presented to the ER because of abnormal labs. Patient normally sees Dr. Broderick and was on systemic treatment which apparently had stopped taking. Patient had blood work drawn outpatient and was told by the level glass vial filler to come to the ER. Patient states over the last couple of days he has been having increasing shortness of breath. Shortness of breath was present at rest as on exertion. Patient was complaining of being lethargic and weakness. Patient also complaining of productive cough with occasional episodes of hemoptysis. Denies any chest pain. There is no complaint of fever or chills. There is no complaint of orthopnea or PND. Patient denies any nausea, vomiting, pain. Patient denies any lightheaded or dizziness. Initial lab work done in the ER showed WBC 3.8, hemoglobin 9, platelet count 134 sodium 142, potassium 4, BUN 40, creatinine 1.40 glucose 103, lactate 1.2, calcium 10.5, magnesium 1.4 bilirubin 0.7, AST 27, ALT 11, troponin 0.018, proBNP 1550 Influenza A not detected Influenza B not detected RSV not detected COVID-19 not detected EKG done in the ER showed heart rate of , no ST segment elevation or depression seen, no T-wave inversions seen. Chest x-ray done in the ER showed patchy infiltrative opacity throughout the right lung with small to moderate size right pleural effusion. Questionable air-fluid level versus overlying skinfold is indeterminate for cavitary lesion or abscess. Recommend CT chest for further evaluation, consolidation in the left lung apex CT chest PE protocol done showed no definite acute PE within the vasculature, significant progression of metastatic disease with numerous pleural-based metastatic deposits and involvement of the left-sided ribs additionally there is peritoneal carcinomatosis in the partially visualized upper abdomen. Patient admitted to internal medicine service 12/07. Patient seen and examined. Status post right-sided thoracentesis with removal of 720 cc of fluid. Blood work done today showed WBC 4.9, hemoglobin 8.8, platelet count 138, sodium 143, potassium 4.1, BUN 33, creatinine 1.74, calcium 9.7 Patient had right-sided Thora vent placed this morning. Currently on 4 L of oxygen. 12/08. Patient seen and examined. Vital signs done this morning showedTemp 98, heart rate 98, respirations 30, blood pressure 125/84, currently on 2 L of oxygen. Denies any shortness of breath at rest. Currently has a Thora vent in place. Chest x-ray done this morning shows right-sided pleural effusion, right- sided chest tube in place with residual pneumothorax. 12/09. Old male patient currently sleeping, he was agitated and restless overnight and he was prescribed Seroquel 25 mg which made him calm He still tachypneic with a breathing rate around 28, he is saturating high 90s on 3 L oxygen via nasal cannula Hemoglobin slightly trending down to 7.7 and creatinine up to 1.9 His proBNP is 1550 and procalcitonin negative at 0.16 Chest x-ray reviewed by myself showing right more than left infiltrate but looks better than 2 days ago Renal ultrasound showing no hydronephrosis finger right renal cyst He is currently kept on Zosyn. On home dose of Eliquis 2.5 mg. He had pneumothorax on the right side status post Thora vent, currently he has minimal discharge from his right Thora vent 12/10 Patient moved out of the ICU to select unit He is more awake today but still confused, he was trying to pull out his lines and Thora vent. He is mildly tachypneic with talking. He can tell he is in the hospital but also still mildly confused. Serevent was Today. Repeat chest x-ray showing mild improvement in the right pneumothorax, I reviewed the chest x-ray by myself. He remains on Zosyn and home dose of Eliquis 2.5 Will going to add small dose of Seroquel 12.5. 12/11 Patient more awake trying to talk Still feel short of breath although slightly better than yesterday, breathing rate around 22 compared to 28 yesterday, his right upper chest Thora vent is in place and capped Repeat chest x-ray this morning showing right pleural effusion more than left with pulmonary vascular congestion suspicious for CHF. Currently patient off IV fluid He is on Zosyn and Eliquis 2.5 mg. 12/12 Patient in the morning was awake and alert but slightly agitated, he had a sitter at bedside. Thora vent was taken out after it was capped yesterday. His mentation was getting worse through the day and he became more tachypneic and tachycardic and he has to be placed on BiPAP. Repeat chest x-ray showing moderate to large right pleural effusion and evidence of CHF. Patient was moved to the ICU for more monitoring pH was 7.2 worsening to record cutter to 7.08 and pCO2 was elevated at 58 worsened to 92. Creatinine also worsened up to 2.7 and sodium 146., With worsening breathing patient had to be intubated and placed on mechanical ventilation 12/13 Patient remains in the ICU intubated and sedated His breathing more quiet today. Abdomen soft Hemoglobin dropped to 7.0. Platelet count stable at 139, creatinine stable or slightly improved 2.7 down to 2.6. Patient placed on normal saline 75 mL/h. 12/14 Patient remains intubated and sedated He does not need pressors and Zosyn was discontinued He received some IV fluid Chest x-ray still showing pulmonary vascular congestion Pathology from pleural fluid came back positive for malignancy Sister and at bedside, oncology team discussing the case with them. Patient still at risk. 12/15 Patient remains intubated on mechanical ventilation in the ICU Family yesterday discussed the case with oncology team and patient remains full code and he was started on chemotherapy. Imodium can be stopped Chest x-ray showing persistent right-sided infiltrate most likely secondary to fluid and malignancy. Prognosis remains guarded and patient still high risk 12/16 Patient remains intubated and sedated Patient has no events overnight He was getting chemotherapy No IV fluid, no antibiotic chest tube feeding, he got 1 dose of 80 mg of Lasix yesterday He has good urine output of about 15 to 20 mL/h Also has low-grade temperature 100.2 yesterday and 9.9 today. Repeat chest x-ray showing CHF for right pleural effusion which is malignant pleural effusion Patient continue to get chemotherapy through tomorrow Patient has negative C. diff test Objective - Vital Signs Vital signs: Vital Signs Temp 98.3 F 12/16/24 04:00 Pulse 85 12/16/24 07:00 Resp 20 12/16/24 07:00 BP 102/46 12/16/24 07:00 Pulse Ox 96 12/16/24 07:00 FiO2 40 12/16/24 04:02 Intake & Output 12/15/24 12/16/24 12/16/24 18:59 06:59 18:59 Intake Total 970.539 859.048 43.034 Output Total 190 240 20 Balance 780.539 619.048 23.034 Weight 82.7 kg Intake: IV 130 36 3 0.9 30 36 3 Sodium Ferric Gluconat- 100 Sucrose 125 mg In Sodium Chloride 0.9% 100 ml @ 100 mls/hr IVPB DAILY [facility] Rx#:[id number] Intake, IV Titration 280.539 298.048 5.034 Amount propofoL 1,000 mg In 280.539 298.048 5.034 Empty Bag 1 bag @ 15 MCG/ KG/MIN 7.614 mls/hr IV . Q13H9M [facility] Rx#:[id number] Tube Feeding 470 435 35 Other 90 90 Output: Urine 190 240 20 Other: Voiding Method Indwelling Catheter Indwelling Catheter ABP, PAP, CO, CI - Last Documented Arterial Blood Pressure 111/34 - Exam -GENERAL: The patient is sleepy, not in any acute distress. Well developed, well nourished. HEENT: Pupils are round and equally reacting to light. EOMI. No scleral icterus. No conjunctival pallor. Normocephalic, atraumatic. No pharyngeal erythema. No thyromegaly. CARDIOVASCULAR: S1 and S2 present. No murmurs, rubs, or gallops. -PULMONARY: Chest is clear to auscultation, no wheezing , no crackles. Tachypneic, decreased breath sounds on the right side ABDOMEN: Soft, nontender, nondistended, normoactive bowel sounds. No palpable organomegaly. MUSCULOSKELETAL: No joint swelling or deformity. EXTREMITIES: No cyanosis, clubbing, or pedal edema. NEUROLOGICAL: Gross neurological examination did not reveal any focal deficits. SKIN: No rashes. no petechiae. Transfer to - Labs CBC & Chem 7: 12/16/24 04:32 12/16/24 04:32 Labs: Abnormal Lab Results - Last 24 Hours (Table) 12/15/24 12/15/24 12/15/24 Range/Units 11:43 17:33 20:01 WBC (3.8-10.6) k/uL RBC (4.30-5.90) m/uL Hgb (13.0-17.5) gm/dL Hct (39.0-53.0) % MCV (80.0-100.0) fL Plt Count (150-450) k/uL Neutrophils # (1.3-7.7) k/uL Lymphocytes # (1.0-4.8) k/uL ABG pH (7.35-7.45) ABG pCO2 (35-45) mmHg ABG pO2 (83-108) mmHg ABG HCO3 (21-25) mmol/L ABG O2 Saturation (94-97) % Hemoglobin (13.0-17.5) gm/dL Potassium (3.5-5.1) mmol/L Carbon Dioxide (22-30) mmol/L BUN (9-20) mg/dL Creatinine (0.66-1.25) mg/dL Glucose (74-99) mg/dL POC Glucose (mg/dL) 168 H 196 H 196 H (70-110) mg/dL Uric Acid (3.5-8.5) mg/dL Phosphorus (2.5-4.5) mg/dL Total Protein (6.3-8.2) g/dL Albumin (3.5-5.0) g/dL 12/16/24 12/16/24 12/16/24 Range/Units 00:01 04:07 04:32 WBC (3.8-10.6) k/uL RBC (4.30-5.90) m/uL Hgb (13.0-17.5) gm/dL Hct (39.0-53.0) % MCV (80.0-100.0) fL Plt Count (150-450) k/uL Neutrophils # (1.3-7.7) k/uL Lymphocytes # (1.0-4.8) k/uL ABG pH 7.25 L (7.35-7.45) ABG pCO2 46 H (35-45) mmHg ABG pO2 111 H (83-108) mmHg ABG HCO3 20 L (21-25) mmol/L ABG O2 Saturation 98.4 H (94-97) % Hemoglobin 7.3 L (13.0-17.5) gm/dL Potassium 5.2 H (3.5-5.1) mmol/L Carbon Dioxide 18 L (22-30) mmol/L BUN 100 H (9-20) mg/dL Creatinine 4.54 H (0.66-1.25) mg/dL Glucose 151 H (74-99) mg/dL POC Glucose (mg/dL) 190 H (70-110) mg/dL Uric Acid 8.6 H (3.5-8.5) mg/dL Phosphorus 11.1 H* (2.5-4.5) mg/dL Total Protein 5.5 L (6.3-8.2) g/dL Albumin 3.3 L (3.5-5.0) g/dL 12/16/24 12/16/24 Range/Units 04:32 06:27 WBC 13.6 H (3.8-10.6) k/uL RBC 2.18 L (4.30-5.90) m/uL Hgb 7.3 L (13.0-17.5) gm/dL Hct 23.1 L (39.0-53.0) % MCV 106.1 H (80.0-100.0) fL Plt Count 142 L (150-450) k/uL Neutrophils # 12.3 H (1.3-7.7) k/uL Lymphocytes # 0.4 L (1.0-4.8) k/uL ABG pH (7.35-7.45) ABG pCO2 (35-45) mmHg ABG pO2 (83-108) mmHg ABG HCO3 (21-25) mmol/L ABG O2 Saturation (94-97) % Hemoglobin (13.0-17.5) gm/dL Potassium (3.5-5.1) mmol/L Carbon Dioxide (22-30) mmol/L BUN (9-20) mg/dL Creatinine (0.66-1.25) mg/dL Glucose (74-99) mg/dL POC Glucose (mg/dL) 168 H (70-110) mg/dL Uric Acid (3.5-8.5) mg/dL Phosphorus (2.5-4.5) mg/dL Total Protein (6.3-8.2) g/dL Albumin (3.5-5.0) g/dL Microbiology - Last 24 Hours (Table) 12/06/24 15:30 Fungal Culture - Preliminary Pleural Fluid 12/13/24 01:10 Gram Stain - Final Sputum Sputum Culture - Final Assessment and Plan Assessment: Acute hypoxic respiratory failure required intubation and mechanical ventilation Malignant large pleural effusion status post thoracocentesis. On 12/13 has breathing that worsened because of CHF and large pleural effusion and patient has to be placed on mechanical ventilation. Pathology sample came back positive for malignant cells Iatrogenic right pneumothorax status post Thora vent placement, which was removed on 12/13 Multiple myeloma Acute kidney injury Hypercalcemia Chronic anemia Hypertension Hyperlipidemia Obstructive sleep apnea A-fib and RVR Plan: Continue patient care in the ICU Started chemotherapy on 12/15-12/17 Continue with intubation and mechanical ventilation as per pulmonary/critical care team On Lasix per gifted teacher Antibiotics were discontinued Continue with home dose of Eliquis Continue with the breathing treatment Pulmonary/cardiology team consult Renal ultrasound is reviewed which was basically unremarkable and hematology collagen and nephrology team are also on consult DVT prophylaxis: Eliquis GI prophylaxis: Pepcid Prognosis is guarded
[2024-12-16] MEDS: DEXAMETHASONE SOD PHOS (MDV) 40 MG in DEXTROSE 5% IN WATER 50 ML IVPB SCH (09:19)
--- NOTE | 2024-12-16 10:15 | P.PN ---
Subjective Progress Note Date: 12/16/24 Principal diagnosis: Pneumonia. Patient is a 79-year-old male with past medical history significant for hypertension, hyperlipidemia, KYM, multiple myeloma. His PCP is Dr. Jaimes. Also, follows with his oncologist Dr. Broderick. Patient had a bone marrow biopsy back on 11/11/2023 which was positive for multiple myeloma. Previously on systemic treatment, which he had stopped, apparently confused on whether he should continue the medication. Patient sent in by his oncologist yesterday for abnormal labs. On arrival, complaining of increased work of breathing over the last month. Occasional cough with mucus and occasional blood tinge. Workup in the ED including a chest CT angio which did not show any definite acute central pulmonary embolism, but technically limited due to suboptimal timing of contrast bolus. Overall, findings were consistent with disease progression. There was extensive soft tissue pleural metastatic deposits throughout bilateral lung henderson right greater than left. Extensive pleural metastatic disease in the left apex with involvement of the left first, second, and third ribs. Large right-sided pleural effusion and trace left-sided pleural effusion. Partially visualized upper abdomen demonstrating peritoneal carcinomatosis with large soft tissue implant in the left retroperitoneum measuring 6.4 x 4.1 cm. Bilateral hydronephrosis partially visualized. Enlarged retroperitoneal lymph node. Extensive osteolytic lesions throughout the visualized axial and appendicular skeleton compatible with osseous metastatic disease. CBC: WBC count 3.8, hemoglobin 9, platelets 134. CMP: Sodium 142, potassium 4, chloride 107, serum bicarb 21, BUN 40, creatinine 1.4, glucose 103. Lactic 1.2. Ionized calcium 5.4, magnesium 1.4, phosphorus 3.7. LFTs not elevated. Troponin 0.018. NT proBNP 1550. Viral screen negative for influenza, RSV, COVID. Patient currently being seen on the oncology floor. He is awake and alert, on 3 L/min nasal cannula, tachypneic in the mid 20s per minute. States he has been progressively more short of breath over the last month. States he uses 2 L supplemental oxygen hooked to his CPAP at bedtime. Denies chest pain, heart palpitations, lightheadedness or syncopal events, lower extremity edema. Does r eport occasional productive cough with brown mucus and occasional blood tinge. Denies any fevers, chills, chest pain, olivia hemoptysis. Denies known sick contacts. Appetite has been poor. Denies abdominal pain, nausea, vomiting, diarrhea, melena, hematochezia. Denies anticoagulant use. Denies history of previous thoracentesis. Patient was empirically covered on a combination of Zosyn and Levaquin in the ED. Current vital signs: Temperature 97.9 F, heart rate 100 bpm, blood pressure 145/66 mmHg, SpO2 recorded at 94% on 2 L/min nasal cannula. Patient was seen today on 12/07/2024, I had to move the patient earlier this morning to ICU as his right-sided pneumothorax showed some progression went from 10% to 30% overnight. Came into the ICU, and placed a Thora vent, 13 Czech in the right pleural space with complete resolution of his right-sided pneumothorax. And more bloody effusion was drained through the Thora vent shortly after the Thora vent was placed. Again there was complete resolution of his pneumothorax, and almost near complete resolution of his pleural effusion which was bloody all along. Patient is now on 4 L nasal cannula, in no distress, he is off heparin, and considering the bloody effusion, I will hold on anticoagulation therapy for now. Patient remains on amiodarone, bronchodilators/updrafts, he is also on Zosyn and Levaquin empirically. WBC count is 4.4 hemoglobin 8.5 electrolytes are normal BUN is 33 creatinine 1.74. The fluid I drained yesterday is clearly exudative with high LDH of 1400 and protein more than 3600 this is likely consistent with malignant pleural effusion most likely related to his multiple myeloma. Patient was seen today on 12/08/2024, remains in the ICU, continues to have Thora vent in place, patient had over 1200 cc of bloody effusion drained over the last 24 hours, and prior to this I have drained over 700 cc initially and the fluid was also bloody. This is most likely a pleural effusion related to multiple myeloma, cytology is pending. Patient remains empirically on antibiotics, however I went ahead and discontinued Levaquin on this patient, and I kept him on Zosyn as he seems to be developing some worsening of his renal status, patient is clinically dry dehydrated, and I am recommending increase of his IV f luid. Hemoglobin is 7.7 WBC count is 4.7 electrolytes are normal however creatinine went up to 1.92 from 1.74 yesterday, baseline on admission was 1.40. Patient remains off heparin mostly because of his bloody effusion, patient is on 3 L nasal cannula with O2 sats of 96%. Chest x-ray today was reviewed, I did not truly appreciate a pneumothorax on the chest x-ray today, and hardly any air leak is noted. Patient was seen today on 12/09/2024, remains in the ICU, continues to have Thora vent in place, and connected to Pleur-evac. No airleak is noted, minimal drainage overnight, less than 50 cc. No further air leak is noted, hence I went ahead and disconnected the Thora vent from Pleur-evac, and applied the one-way valve on the Thora vent. Patient is doing well, relatively asymptomatic, remains on IV fluid at 75 cc/h with slight improvement in his renal status, renal ultrasound showed no evidence of hydronephrosis. Patient remains on Zosyn, Eliquis is on hold, he is also on Seroquel. Chest x-ray will be repeated sometime later today to make sure the patient does not have any expansion of pneumothorax in the right lung. Continues to have some right lower lobe consolidation,, patient remains on antibiotics. The results on the pleural effusion are pending especially the cytology, the protein in the pleural effusion and the LDH suggest that it is malignant unless proven otherwise., It is definitely exudative. WBC count is 4.5 hemoglobin 7.4 electrolytes are normal BUN is 41 creatinine 1.75. Platelets are 1 27,000. Seen today on 12/10/2024, patient is now on medical floor, very comfortable, on 3 L nasal cannula, not in distress. Patient is hemodynamically stable blood pressure is 128/65, heart rate is 84, patient is afebrile. Temp is 97.6. Chest x-ray this morning was read by the ER physician as a left-sided pneumothorax which I reviewed myself, and I fully disagreed with the reading, this would have been a spontaneous left-sided pneumothorax, however follow-up chest x-ray was done and there was no evidence of pneumothorax on the left side. But both x-rays did reflect evidence of fluid overload and pulmonary edema with bilateral pleural effusions, has I recommended diuresing the patient further today. Yesterday he responded well to Lasix, and I am recommending another dose of Lasix 40 mg IV push to be given today. His Thora vent remains off suction, but he does have the one-way valve/occluding valve. And there is no evidence of pneumothorax on the right side. But again I believe the patient is building bilateral pleural effusions again. Cytology from his pleural effusion which I drained back on 12/07 is still pending I expect it to be related to multiple myeloma. Labs today showed relatively normal electrolytes BUN is 31 creatinine is up to 1.82 Progress note dated December 11, 2024. 79-year-old male seen today in room 363. The patient appears to. He was diagnosed with pneumonia on admission. He is currently on 3 L of oxygen. He is getting Zosyn, and is getting saline at 10 cc an hour. The patient had a right pneumothorax, and had a right Thora vent placed. The patient has a history of multiple myeloma, with acute mental status changes, possibly related to hypercalcemia. Apparently the patient was off his myeloma medications for a period of time. Current laboratory data includes a white count 5.2, hemoglobin 8.1, hematocrit 24.8, and a platelet count of 140,000. Sodium 147, potassium 3.8, chlorides 112, CO2 24, anion gap 11, BUN 32, creatinine 1.99. Glucose is 103. Calcium is 10. Magnesium is 1.9. Pleural fluid sampling has thus far negative. Chest x-ray shows persistent cardiomegaly, small left-sided pleural effusion, and a larger right sided effusion. Progress note dated December 12, 2024. 79-year-old male seen today in room 363. The patient's Thora vent was removed. A repeat chest x-ray has been ordered. He is getting D5W at 50 cc an hour, and nasal O2 at 2 L. A chest x-ray done before the Thora vent was removed, did not reveal a right-sided pneumothorax. The patient's right-sided pleural effusion appears smaller. Current laboratory data includes a sodium 145, potassium 3.8, chlorides 111, CO2 24, anion gap 10, BUN 34, and creatinine 2.03. Glucose is 104. Calcium 9.9, magnesium 1.9. Progress note dated December 13, 2024. 79-year-old male seen today in the intensive care unit, room 251. Last night, the patient developed respiratory distress, with hypercapnic and hypoxemic respiratory failure. We attempted BiPAP initially, and that did not turn things around, so the patient was electively intubated and transferred to the intensive care unit. That happened before midnight. The patient is on volume assist- control, rate 20, tidal line 450, FiO2 50% PEEP of 5. Blood gases show pO2 139, pCO2 41, pH is 7.37. The patient is currently on propofol at 20 mcg/kg/min, norepinephrine at 2.5 mcg/min and D5W at 75 cc an hour, which is started today. The patient was a full code, which is why he was electively intubated. An art line was placed by the nurse venue coordinator. Current labs include a white count 5.5, hemoglobin 7, hematocrit 21.3, and a platelet count of 139,000. Initial postintubation gases show pO2 of 286, pCO2 45, pH is 7.33. That was on 100%. Sodium 146, potassium 4, chlorides 111, CO2 24, anion gap 11, BUN 41, creatinine 2.67. Glucose of 156. Calcium 9.2. Magnesium 1.9. Chest x-ray shows cardiomegaly, with bilateral effusions, right greater than left. There is also some central vascular congestion demonstrated. Progress note dated December 14, 2024. 79-year-old male seen in the intensive care unit again, room 251. He remains on mechanical ventilator. He is on volume assist-control, rate 20, tidal volume 450, FiO2 40%, PEEP of 5. Blood gases show pO2 of 91, pCO2 of 40, pH is 7.35. He is on propofol at 30 mcg/kg/min, D5W at 75 cc an hour. I have asked the nurses and dietary to start tube feedings. The patient had a thoracentesis done by my partner in December 06. It was positive for plasma cell myeloma. The patient is going to get chemotherapy today, as per medical oncology, which I think is extremely risky, given how sick the patient is. White count 6.6, hemoglobin 7.6, hematocrit 23.7, platelet count 154,000. Sodium 141, potassium 3.5, chlorides 109, CO2 21, BUN 47, creatinine 3.30. Glucose is 114. Calcium 9.2, magnesium 2.0. Chest x-ray shows findings consistent with either fluid overload/CHF, or pneumonia. Progress note dated December 15, 2024. 79-year-old male seen again in the intensive care unit, room 251. He remains on mechanical ventilation. He is on volume assist-control, rate 20, tidal volume 450, FiO2 40%, PEEP of 5. Blood gases show pO2 of 93, pCO2 44, pH of 7.29. The patient has a mild metabolic acidosis. He is getting propofol at 40 mcg/kg/min, vital HP at 40, with a goal of 65 cc an hour. No IV fluids. The patient may be developing tumor lysis syndrome as his uric acid is elevated as is his swati sphate. Apparently from 10 PM to 4 AM this morning, the patient did have atrial flutter, with a rate of about 100 bpm. Current labs include a white count of 7.3, hemoglobin 7.4, macro 22.9, and a platelet count of 140,000. Sodium 139, potassium 4.3, chlorides 107, CO2 21, anion gap 11, BUN 67, and creatinine 4.11. Glucose was 183. Calcium is 8.8. Uric acid is 10.9. Phosphorus is 7. Albumin is 3.2. Chest x-ray shows persistent diffuse right lung edema and/or infiltrates. The patient has a right greater than left pleural effusion. Progress note dated December 16, 2024. 79-year-old male seen again in room 251, intensive care unit. The patient remains on mechanical ventilation. He is on volume assist-control, rate 20, tidal volume 450, FiO2 35%, PEEP of 5. Blood gases show pO2 of 111, pCO2 of 46, pH 7.25. Both blood gases were done on 40% FiO2. He is on propofol at 30 mcg/kg/min, and vital high-protein at 35 cc an hour, with a goal of 65 cc an hour. White count 13.6, hemoglobin 7.3, hematocrit 23.1, platelet count 142,000. Sodium 140, potassium 5.2, chloride 105, CO2 18, anion gap 17, BUN 100, creatinine 4.54. Glucose 168. Calcium is 8.5, phosphorus is 11.1, and uric acid is 8.6. Chest x-ray shows a findings, consistent with CHF/fluid overload. Objective - Vital Signs Vital signs: Vital Signs Temp 98.3 F 12/16/24 08:00 Pulse 86 12/16/24 09:00 Resp 20 03/29/25 09:00 BP 105/43 12/16/24 09:00 Pulse Ox 96 12/16/24 09:00 FiO2 35 12/16/24 08:04 Intake & Output 12/15/24 12/16/24 12/16/24 18:59 06:59 18:59 Intake Total 970.539 859.048 111.034 Output Total 190 240 70 Balance 780.539 619.048 41.034 Weight 82.7 kg Intake: IV 130 36 6 0.9 pressure bag 30 36 6 Sodium Ferric Gluconat- 100 Sucrose 125 mg In Sodium Chloride 0.9% 100 ml @ 100 mls/hr IVPB DAILY [facility] Rx#:[id number] Intake, IV Titration 280.539 298.048 5.034 Amount propofoL 1,000 mg In 280.539 298.048 5.034 Empty Bag 1 bag @ 15 MCG/ KG/MIN 7.614 mls/hr IV . [id number] [facility] Rx#:[id number] Tube Feeding 470 435 70 Other 90 90 30 Output: Urine 190 240 70 Other: Voiding Method Indwelling Catheter Indwelling Catheter Indwelling Catheter ABP, PAP, CO, CI - Last Documented Arterial Blood Pressure 111/34 - Exam No acute distress, sedated, with an orally placed endotracheal tube, and NG tube. HEENT examination is grossly unremarkable. Neck supple. Full range of motion. No adenopathy thyromegaly or neck vein distention. Cardiovascular examination reveals regular rhythm rate. S1-S2 normal. No S3 or S4. No discernible murmur noted. Heart sounds are distant. Lungs reveal diminished bilateral breath sounds, right greater than left. Scatt ered rhonchi are appreciated. No crackles. No wheezes. Abdomen soft bowel sounds are heard. No masses or tenderness. Extremities are intact. No cyanosis clubbing or edema. Skin is without rash or lesion. Neurologic examination cannot be evaluated as the patient is currently sedated. - Labs CBC & Chem 7: 12/16/24 04:32 12/16/24 04:32 Labs: Abnormal Lab Results - Last 24 Hours (Table) 12/15/24 12/15/24 12/15/24 Range/Units 11:43 17:33 20:01 WBC (3.8-10.6) k/uL RBC (4.30-5.90) m/uL Hgb (13.0-17.5) gm/dL Hct (39.0-53.0) % MCV (80.0-100.0) fL Plt Count (150-450) k/uL Neutrophils # (1.3-7.7) k/uL Lymphocytes # (1.0-4.8) k/uL ABG pH (7.35-7.45) ABG pCO2 (35-45) mmHg ABG pO2 (83-108) mmHg ABG HCO3 (21-25) mmol/L ABG O2 Saturation (94-97) % Hemoglobin (13.0-17.5) gm/dL Potassium (3.5-5.1) mmol/L Carbon Dioxide (22-30) mmol/L BUN (9-20) mg/dL Creatinine (0.66-1.25) mg/dL Glucose (74-99) mg/dL POC Glucose (mg/dL) 168 H 196 H 196 H (70-110) mg/dL Uric Acid (3.5-8.5) mg/dL Phosphorus (2.5-4.5) mg/dL Total Protein (6.3-8.2) g/dL Albumin (3.5-5.0) g/dL 12/16/24 12/16/24 12/16/24 Range/Units 00:01 04:07 04:32 WBC (3.8-10.6) k/uL RBC (4.30-5.90) m/uL Hgb (13.0-17.5) gm/dL Hct (39.0-53.0) % MCV (80.0-100.0) fL Plt Count (150-450) k/uL Neutrophils # (1.3-7.7) k/uL Lymphocytes # (1.0-4.8) k/uL ABG pH 7.25 L (7.35-7.45) ABG pCO2 46 H (35-45) mmHg ABG pO2 111 H (83-108) mmHg ABG HCO3 20 L (21-25) mmol/L ABG O2 Saturation 98.4 H (94-97) % Hemoglobin 7.3 L (13.0-17.5) gm/dL Potassium 5.2 H (3.5-5.1) mmol/L Carbon Dioxide 18 L (22-30) mmol/L BUN 100 H (9-20) mg/dL Creatinine 4.54 H (0.66-1.25) mg/dL Glucose 151 H (74-99) mg/dL POC Glucose (mg/dL) 190 H (70-110) mg/dL Uric Acid 8.6 H (3.5-8.5) mg/dL Phosphorus 11.1 H* (2.5-4.5) mg/dL Total Protein 5.5 L (6.3-8.2) g/dL Albumin 3.3 L (3.5-5.0) g/dL 12/16/24 12/16/24 Range/Units 04:32 06:27 WBC 13.6 H (3.8-10.6) k/uL RBC 2.18 L (4.30-5.90) m/uL Hgb 7.3 L (13.0-17.5) gm/dL Hct 23.1 L (39.0-53.0) % MCV 106.1 H (80.0-100.0) fL Plt Count 142 L (150-450) k/uL Neutrophils # 12.3 H (1.3-7.7) k/uL Lymphocytes # 0.4 L (1.0-4.8) k/uL ABG pH (7.35-7.45) ABG pCO2 (35-45) mmHg ABG pO2 (83-108) mmHg ABG HCO3 (21-25) mmol/L ABG O2 Saturation (94-97) % Hemoglobin (13.0-17.5) gm/dL Potassium (3.5-5.1) mmol/L Carbon Dioxide (22-30) mmol/L BUN (9-20) mg/dL Creatinine (0.66-1.25) mg/dL Glucose (74-99) mg/dL POC Glucose (mg/dL) 168 H (70-110) mg/dL Uric Acid (3.5-8.5) mg/dL Phosphorus (2.5-4.5) mg/dL Total Protein (6.3-8.2) g/dL Albumin (3.5-5.0) g/dL Microbiology - Last 24 Hours (Table) 12/06/24 15:30 Fungal Culture - Preliminary Pleural Fluid 12/13/24 01:10 Gram Stain - Final Sputum Sputum Culture - Final Assessment and Plan Assessment: Acute hypoxemic and hypercapnic respiratory failure, multifactorial, requiring intubation, and mechanical ventilation, on December 12, 2024. S/P right sided thoracentesis, with a right-sided iatrogenic pneumothorax. S/P right Thora vent placement, with removal on December 12, 2024. Multiple myeloma. Acute kidney injury with bilateral hydronephrosis. Hypercalcemia, resolved. Chronic anemia. Hypertension. History of hyperlipidemia. History of obstructive sleep apnea syndrome, maintained on home CPAP. Possible right lower lobe pneumonia. Plan: Plan dated December 11, 2024. The patient is seen today in room 363. He currently is on 3 L of oxygen. No respiratory distress. He sustained a right pneumothorax after thoracentesis. Right Thora vent device is in place. The Thora vent device will be capped. Currently he is got a one-way valve on the Thora vent device. He continues on Zosyn. He is getting saline at 10 cc an hour. The patient will have a repeat chest x-ray at 1:00 today. Additional recommendations and suggestions are forthcoming. Should his lungs stay expanded, the Thora vent device will be removed. Clinically, the patient is not in any respiratory distress. He is very confused. Family members are in the room. Findings are discussed. Plan dated December 12, 2024. The patient is seen today in room 363. He continues on nasal O2 at 2 L. He is getting D5W at 50 cc an hour. A chest x-ray this morning did not reveal right- sided pneumothorax. The pleural effusion appears smaller. The Thora vent device was removed. A repeat chest x-ray has been ordered. Clinically, the patient is confused, but stable. He is not manifesting any signs or symptoms of respiratory distress. He has been weaned down to 2 L from 3. Labs, x-rays, medications are reviewed. We will continue to follow. Prognosis is guarded. Dictation was produced using [employer]ation software. Please excuse any grammatical, word or spelling errors. Plan dated December 13, 2024. The patient developed hypoxemic and hypercapnic respiratory failure yesterday, and failed BiPAP intervention, and was electively intubated and mechanically ventilated, and brought to the intensive care unit. The patient remains on mechanical ventilator. He is on volume assist-control, rate 20, tidal volume 450, FiO2 50% to be reduced to 40%, with a PEEP of 5. Gases show pO2 139, pCO2 41 and pH is 7.37. He is on propofol at 20 mcg/kg/min, norepinephrine at 2.5 mcg/min. We will add D5W at 75 cc an hour. I attempted to speak to a family member, Amanda Ivan, at [phone], who apparently is making the decision along with the patient's , as it relates to medical issues. She apparently is on her way into the hospital. Prognosis is poor. He remains a full code. Labs, x-rays, medications are reviewed. Dictation was produced using [employer]ation software. Please excuse any grammatical, word or spelling errors. Plan dated December 14, 2024. The patient is again seen in the intensive care unit, room 251. The patient's recently was weaned off norepinephrine. The patient is going to have tube feeds started, and he continues on D5W at 75 cc an hour. He is getting sedation with propofol at 30 mcg/kg/min. Thoracentesis performed on December 06, showed plasma cell myeloma. He is on the ventilator, gases show pO2 of 91, pCO2 of 40, pH of 7.35. His blood gases are consistent with a very mild metabolic acidosis. Medical oncology is planning on giving the patient chemotherapy today. I am a little concerned, as the patient is still critically ill, but I did discuss this with medical oncology who feels like this is the patient's only chance. Anyway, we will continue to support. I had a conversation with the patient's sister yesterday. At this point, the patient remains a full code. Prognosis is poor. Dictation was produced using [employer] software. Please excuse any grammatical, word or spelling errors. Plan dated December 15, 2024. The patient did receive chemotherapy as per medical oncology. Labs, x-rays, and medications are reviewed. The patient's renal function is worsening. The patient may be developing tumor lysis syndrome. The patient does have a non- anion gap metabolic acidosis. Labs, x-rays, and all medications are reviewed. Prognosis is very poor in my opinion. The arterial blood gases show pO2 of 93, pCO2 of 44, pH of 7.29. The patient continues on propofol at 40 mcg/kg/min, and vital HP at 40 cc an hour, with a goal of 65 cc an hour. The patient did have episodes of atrial flutter last night. We will continue to follow. Prognosis is guarded. Dictation was produced using [employer] software. Please excuse any grammatical, word or spelling errors. Plan dated December 16, 2024 The patient is again seen today in room 251. He continues on mechanical ventilation. In my opinion, the patient's overall prognosis is very poor. Renal function continues to deteriorate. Patient is on propofol at 30 mcg/kg/min, and vital high-protein at 35 with a goal of 65 cc an hour. Blood gases show pO2 of 111, pCO2 of 46, pH of 7.25. Blood gases are consistent with both respiratory and metabolic acidosis. All labs, x-rays, and medications are reviewed. Prognosis is certainly guarded. We will continue to follow. Di ctation was produced using [employer] software. Please excuse any grammatical, word or spelling errors. Time with Patient: Greater than 30
--- NOTE | 2024-12-16 10:40 | P.PN ---
Subjective Progress Note Date: 12/16/24 Patient is seen in follow-up for acute kidney injury. Remains off vasopressors. Intubated. n 35% FiO2 and PEEP 5 , Chemo started February 13, 2025. Urine output 15 to 30 cc an hour. discussed with RN to give IV Lasix 80 mg once General: No resting in bed. HEENT: Intubated. 35% FiO2. LUNGS: No audible rhonchi or wheezes. HEART: Rate and Rhythm are regular. ABDOMEN: Nontender. EXTREMITITES: No edema. Objective - Vital Signs Vital signs: Vital Signs Temp 98.3 F 12/16/24 08:00 Pulse 86 12/16/24 09:00 Resp 20 12/16/24 09:00 BP 105/43 12/16/24 09:00 Pulse Ox 96 12/16/24 09:00 FiO2 35 12/16/24 08:04 Intake & Output 12/15/24 12/16/24 12/16/24 18:59 06:59 18:59 Intake Total 970.539 859.048 111.034 Output Total 190 240 70 Balance 780.539 619.048 41.034 Weight 82.7 kg Intake: IV 130 36 6 0.9 pressure bag 30 36 6 Sodium Ferric Gluconat- 100 Sucrose 125 mg In Sodium Chloride 0.9% 100 ml @ 100 mls/hr IVPB DAILY VIKY Rx#:[id number] Intake, IV Titration 280.539 298.048 5.034 Amount propofoL 1,000 mg In 280.539 298.048 5.034 Empty Bag 1 bag @ 15 MCG/ KG/MIN 7.614 mls/hr IV . Q13H9M VIKY Rx#:[id number] Tube Feeding 470 435 70 Other 90 90 30 Output: Urine 190 240 70 Other: Voiding Method Indwelling Catheter Indwelling Catheter Indwelling Catheter ABP, PAP, CO, CI - Last Documented Arterial Blood Pressure 111/34 - Labs CBC & Chem 7: 12/16/24 04:32 12/16/24 04:32 Labs: Abnormal Lab Results - Last 24 Hours (Table) 12/15/24 12/15/24 12/15/24 Range/Units 11:43 17:33 20:01 WBC (3.8-10.6) k/uL RBC (4.30-5.90) m/uL Hgb (13.0-17.5) gm/dL Hct (39.0-53.0) % MCV (80.0-100.0) fL Plt Count (150-450) k/uL Neutrophils # (1.3-7.7) k/uL Lymphocytes # (1.0-4.8) k/uL ABG pH (7.35-7.45) ABG pCO2 (35-45) mmHg ABG pO2 (83-108) mmHg ABG HCO3 (21-25) mmol/L ABG O2 Saturation (94-97) % Hemoglobin (13.0-17.5) gm/dL Potassium (3.5-5.1) mmol/L Carbon Dioxide (22-30) mmol/L BUN (9-20) mg/dL Creatinine (0.66-1.25) mg/dL Glucose (74-99) mg/dL POC Glucose (mg/dL) 168 H 196 H 196 H (70-110) mg/dL Uric Acid (3.5-8.5) mg/dL Phosphorus (2.5-4.5) mg/dL Total Protein (6.3-8.2) g/dL Albumin (3.5-5.0) g/dL 12/16/24 12/16/24 12/16/24 Range/Units 00:01 04:07 04:32 WBC (3.8-10.6) k/uL RBC (4.30-5.90) m/uL Hgb (13.0-17.5) gm/dL Hct (39.0-53.0) % MCV (80.0-100.0) fL Plt Count (150-450) k/uL Neutrophils # (1.3-7.7) k/uL Lymphocytes # (1.0-4.8) k/uL ABG pH 7.25 L (7.35-7.45) ABG pCO2 46 H (35-45) mmHg ABG pO2 111 H (83-108) mmHg ABG HCO3 20 L (21-25) mmol/L ABG O2 Saturation 98.4 H (94-97) % Hemoglobin 7.3 L (13.0-17.5) gm/dL Potassium 5.2 H (3.5-5.1) mmol/L Carbon Dioxide 18 L (22-30) mmol/L BUN 100 H (9-20) mg/dL Creatinine 4.54 H (0.66-1.25) mg/dL Glucose 151 H (74-99) mg/dL POC Glucose (mg/dL) 190 H (70-110) mg/dL Uric Acid 8.6 H (3.5-8.5) mg/dL Phosphorus 11.1 H* (2.5-4.5) mg/dL Total Protein 5.5 L (6.3-8.2) g/dL Albumin 3.3 L (3.5-5.0) g/dL 12/16/24 12/16/24 Range/Units 04:32 06:27 WBC 13.6 H (3.8-10.6) k/uL RBC 2.18 L (4.30-5.90) m/uL Hgb 7.3 L (13.0-17.5) gm/dL Hct 23.1 L (39.0-53.0) % MCV 106.1 H (80.0-100.0) fL Plt Count 142 L (150-450) k/uL Neutrophils # 12.3 H (1.3-7.7) k/uL Lymphocytes # 0.4 L (1.0-4.8) k/uL ABG pH (7.35-7.45) ABG pCO2 (35-45) mmHg ABG pO2 (83-108) mmHg ABG HCO3 (21-25) mmol/L ABG O2 Saturation (94-97) % Hemoglobin (13.0-17.5) gm/dL Potassium (3.5-5.1) mmol/L Carbon Dioxide (22-30) mmol/L BUN (9-20) mg/dL Creatinine (0.66-1.25) mg/dL Glucose (74-99) mg/dL POC Glucose (mg/dL) 168 H (70-110) mg/dL Uric Acid (3.5-8.5) mg/dL Phosphorus (2.5-4.5) mg/dL Total Protein (6.3-8.2) g/dL Albumin (3.5-5.0) g/dL Microbiology - Last 24 Hours (Table) 12/06/24 15:30 Fungal Culture - Preliminary Pleural Fluid 12/13/24 01:10 Gram Stain - Final Sputum Sputum Culture - Final Assessment and Plan Plan: Assessment: 1. Acute kidney injury secondary to ATN. No hydronephrosis noted on imaging. UA fairly benign. Creatinine 1.4 on admission and is 4.1 -> 4.5 today. Lasix 80 mg x1 on 12/15, Urine output 15 to 30 cc an hour. Creatinine in July 2024 was 0.8. 2. Hypernatremia from lack of oral water intake. Improved with D5W. status post D5W. resolved 3. Volume overload with pleural effusions. 4. Multiple myeloma. On chemotherapy. 5. Hypercalcemia secondary to volume contraction as well as multiple myeloma. Improved. 6. Pneumonia s/p antibiotics. 7. Anemia. Due to underlying multiple myeloma. Iron deficiency noted. Receiving IV iron. Plan: no urgent indication to initiate renal replacement therapy, will give IV Lasix 80 mg once today. Avoid nephrotoxins. Continue to monitor renal function and urine output. Wean FiO2. Prognosis guarded. Continue to assess daily for need for renal replacement therapy. Patient not an ideal candidate for renal replacement therapy Currently full code.
[2024-12-16 11:53] LABS: Glucose,Whole Blood 163 mg/dL (70-110)
[2024-12-16] MEDS: FUROSEMIDE 10 MG/ML 10 ML VIAL IV STA (12:35)
--- NOTE | 2024-12-16 13:02 | P.PN ---
Subjective Progress Note Date: 12/16/24 Principal diagnosis: Idamay light chain multiple myeloma -Afebrile, no acute events overnight with Tmax of 99.9 F -Remains intubated and sedated Objective - Vital Signs Vital signs: Vital Signs Temp 98.8 F 12/16/24 12:00 Pulse 85 12/16/24 12:00 Resp 20 12/16/24 12:00 BP 107/48 12/16/24 12:00 Pulse Ox 96 12/16/24 12:00 FiO2 35 12/16/24 12:00 Intake & Output 12/15/24 12/16/24 12/16/24 18:59 06:59 18:59 Intake Total 970.539 859.048 384.403 Output Total 190 240 170 Balance 780.539 619.048 214.403 Weight 82.7 kg Intake: IV 130 36 68 0.9 pressure bag 30 36 18 Dexamethasone Sod Phos ( 50 Mdv) 40 mg In Dextrose 5% in Water 50 ml @ 100 mls /hr IVPB DAILY [facility] Rx#: [id number] Sodium Ferric Gluconat- 100 Sucrose 125 mg In Sodium Chloride 0.9% 100 ml @ 100 mls/hr IVPB DAILY [facility] Rx#:[id number] Intake, IV Titration 280.539 298.048 46.403 Amount propofoL 1,000 mg In 280.539 298.048 46.403 Empty Bag 1 bag @ 15 MCG/ KG/MIN 7.614 mls/hr IV . Q13H9M [facility] Rx#:[id number] Tube Feeding 470 435 210 Other 90 90 60 Output: Urine 190 240 170 Other: Voiding Method Indwelling Catheter Indwelling Catheter Indwelling Catheter ABP, PAP, CO, CI - Last Documented Arterial Blood Pressure 117/34 - Constitutional Constitutional Comment(s): Intubated and sedated - EENT EENT Comment(s): Endotracheal and orogastric tube midline - Respiratory Details: Mechanical breath sounds - Cardiovascular Rhythm: regular - Gastrointestinal Gastrointestinal Comment(s): Palpable periumbilical abdominal wall lesion is less prominent General gastrointestinal: Present: soft. Absent: distended, tenderness - Integumentary Integumentary: Present: pale. Absent: rash - Labs CBC & Chem 7: 12/16/24 04:32 12/16/24 04:32 Labs: Abnormal Lab Results - Last 24 Hours (Table) 12/15/24 12/15/24 12/16/24 Range/Units 17:33 20:01 00:01 WBC (3.8-10.6) k/uL RBC (4.30-5.90) m/uL Hgb (13.0-17.5) gm/dL Hct (39.0-53.0) % MCV (80.0-100.0) fL Plt Count (150-450) k/uL Neutrophils # (1.3-7.7) k/uL Lymphocytes # (1.0-4.8) k/uL ABG pH (7.35-7.45) ABG pCO2 (35-45) mmHg ABG pO2 (83-108) mmHg ABG HCO3 (21-25) mmol/L ABG O2 Saturation (94-97) % Hemoglobin (13.0-17.5) gm/dL Potassium (3.5-5.1) mmol/L Carbon Dioxide (22-30) mmol/L BUN (9-20) mg/dL Creatinine (0.66-1.25) mg/dL Glucose (74-99) mg/dL POC Glucose (mg/dL) 196 H 196 H 190 H (70-110) mg/dL Uric Acid (3.5-8.5) mg/dL Phosphorus (2.5-4.5) mg/dL Total Protein (6.3-8.2) g/dL Albumin (3.5-5.0) g/dL 12/16/24 12/16/24 12/16/24 Range/Units 04:07 04:32 04:32 WBC 13.6 H (3.8-10.6) k/uL RBC 2.18 L (4.30-5.90) m/uL Hgb 7.3 L (13.0-17.5) gm/dL Hct 23.1 L (39.0-53.0) % MCV 106.1 H (80.0-100.0) fL Plt Count 142 L (150-450) k/uL Neutrophils # 12.3 H (1.3-7.7) k/uL Lymphocytes # 0.4 L (1.0-4.8) k/uL ABG pH 7.25 L (7.35-7.45) ABG pCO2 46 H (35-45) mmHg ABG pO2 111 H (83-108) mmHg ABG HCO3 20 L (21-25) mmol/L ABG O2 Saturation 98.4 H (94-97) % Hemoglobin 7.3 L (13.0-17.5) gm/dL Potassium 5.2 H (3.5-5.1) mmol/L Carbon Dioxide 18 L (22-30) mmol/L BUN 100 H (9-20) mg/dL Creatinine 4.54 H (0.66-1.25) mg/dL Glucose 151 H (74-99) mg/dL POC Glucose (mg/dL) (70-110) mg/dL Uric Acid 8.6 H (3.5-8.5) mg/dL Phosphorus 11.1 H* (2.5-4.5) mg/dL Total Protein 5.5 L (6.3-8.2) g/dL Albumin 3.3 L (3.5-5.0) g/dL 12/16/24 12/16/24 Range/Units 06:27 11:51 WBC (3.8-10.6) k/uL RBC (4.30-5.90) m/uL Hgb (13.0-17.5) gm/dL Hct (39.0-53.0) % MCV (80.0-100.0) fL Plt Count (150-450) k/uL Neutrophils # (1.3-7.7) k/uL Lymphocytes # (1.0-4.8) k/uL ABG pH (7.35-7.45) ABG pCO2 (35-45) mmHg ABG pO2 (83-108) mmHg ABG HCO3 (21-25) mmol/L ABG O2 Saturation (94-97) % Hemoglobin (13.0-17.5) gm/dL Potassium (3.5-5.1) mmol/L Carbon Dioxide (22-30) mmol/L BUN (9-20) mg/dL Creatinine (0.66-1.25) mg/dL Glucose (74-99) mg/dL POC Glucose (mg/dL) 168 H 163 H (70-110) mg/dL Uric Acid (3.5-8.5) mg/dL Phosphorus (2.5-4.5) mg/dL Total Protein (6.3-8.2) g/dL Albumin (3.5-5.0) g/dL Microbiology - Last 24 Hours (Table) 12/06/24 15:30 Fungal Culture - Preliminary Pleural Fluid 12/13/24 01:10 Gram Stain - Final Sputum Sputum Culture - Final Assessment and Plan (1) Multiple myeloma in relapse Current Visit: Yes Status: Acute Code(s): C90.02 - MULTIPLE MYELOMA IN RELAPSE SNOMED Code(s): 010785585 (2) Hypercalcemia Current Visit: Yes Status: Acute Priority: High Code(s): E83.52 - HYPERCALCEMIA SNOMED Code(s): 66103374 Plan: 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 -Completed 7 cycles of RVD in May 2024 achieving very good partial response with 99% reduction in kappa light chain -Had been on maintenance Revlimid 10 mg daily, which he stopped taking September 2024 for unclear reasons, he then developed progressive disease and symptoms of weakness, MICKEY, anemia, and thrombocytopenia -Admitted with failure to thrive with weakness, dehydration -CTA ruled out PE but reported pleural-based nodules with large right sided pleural effusion, peritoneal carcinomatosis, and retroperitoneal lymphadenopathy -720cc Right-sided thoracentesis performed, post procedure pneumo, thoravent placed. -Cytology positive for plasma cell myeloma -Urine kappa/lambda ratio elevated at 60.4, UPEP positive for monoclonal protein. Concern there is multi-organ involvement of his myeloma. Typically myeloma is rather chemo sensitive and can achieve a quick response. Also, pt responded very well to previous regimen. Discussed with family about initiating CyBorD inpatient to try to achieve disease control. They were agreeable to the same -Cycle 1 of CyBorD was initiated on 12/14/2024 and is currently on day 3 of cycle 1 -He will be due for day 4 Velcade tomorrow -We will continue to monitor his progress clinically while on treatment -I previously discussed with his sister and niece at bedside that he does not make clinical improvement with regards to his breathing and kidney function by the beginning of next week, we would likely need to have goals of care discussion MICKEY: -Kidney function worsening. Considering HD -Uric acid elevated at 17.5. S/p 1 dose Elitek. Uric acid 8.6 today -Appears to be multifactorial, r/t to ATN, multiple myeloma involvement, and possible component of TLS, although TLS is rare with MM -Nephrology following Diarrhea: -C-diff testing negative -Was receiving scheduled Imodium prior to transfer to the ICU Hypercalcemia -Noted to have calcium of 10.5 on admission -Likely multifactorial given dehydration on admission along with relapsed multiple myeloma -Received IV fluids with no significant elevation in his calcium subsequently -For now, we will hold off on bisphosphonate and continue to assess calcium -If he has progressive rise in calcium, bisphosphonate can be given Pascual Broderick MD
[2024-12-16 20:25] LABS: Glucose,Whole Blood 189 mg/dL (70-110)
[2024-12-17 02:18] LABS: Glucose,Whole Blood 162 mg/dL (70-110)
[2024-12-17 04:02] LABS: ABG Base Excess -8.7 mmol/L; ABG HCO3 18 mmol/L (21-25); ABG Oxygen Saturation 97.4 % (94-97); ABG PCO2 44 mmHg (35-45); ABG PH 7.23 (7.35-7.45); ABG PO2 99 mmHg (83-108); ABG TCO2 20 mmol/L (19-24)
[2024-12-17 04:04] LABS: Allen Test Performed? No
[2024-12-17 04:31] LABS: ALT 7 U/L (4-49); AST 17 U/L (17-59); Albumin 3.1 g/dL (3.5-5.0); Alkaline Phosphatase 47 U/L (38-126); Anion Gap 16 mmol/L; Calcium 8.4 mg/dL (8.4-10.2); Carbon Dioxide 18 mmol/L (22-30); Chloride 105 mmol/L (98-107); Glucose 136 mg/dL (74-99); Sodium 139 mmol/L (137-145); Total Bilirubin 0.4 mg/dL (0.2-1.3); Total Protein 5.2 g/dL (6.3-8.2); Uric Acid 7.9 mg/dL (3.5-8.5)
[2024-12-17 04:32] LABS: Basophils % (A) 0 %; Eosinophils % (A) 0 %; HCT 22.7 % (39.0-53.0); HGB 7.1 gm/dL (13.0-17.5); Hypochromasia Slight; Lymphocytes # (A) 0.3 k/uL (1.0-4.8); Lymphocytes % (A) 3 %; MCH 33.8 pg (25.0-35.0); MCHC 31.2 g/dL (31.0-37.0); Macrocytosis Marked; Mean Platelet Volume 10.6; Monocytes % (A) 8 %; Neutrophils # (A) 10.6 k/uL (1.3-7.7); Neutrophils % (A) 88 %; Platelet Count 153 k/uL (150-450); RBC 2.09 m/uL (4.30-5.90); RDW 15.3 % (11.5-15.5); WBC 12.1 k/uL (3.8-10.6)
[2024-12-17 04:36] LABS: MCV 108.4 fL (80.0-100.0)
[2024-12-17 04:37] LABS: African American GFR (CKD) 12 (>60 ml/min/1.73 sqM); Non-African American GFR(CKD) 10 (>60 ml/min/1.73 sqM)
[2024-12-17 05:42] LABS: Phosphorus 12.7 mg/dL (2.5-4.5)
[2024-12-17 05:43] LABS: Blood Urea Nitrogen 146 mg/dL (9-20)
--- NOTE | 2024-12-17 06:48 | XR ---
EXAMINATION TYPE: XR chest 1V portable DATE OF EXAM: 12/17/2024 COMPARISON: 12/16/2024 CLINICAL INDICATION: Male, 79 years old with history of On ventilator; TECHNIQUE: Single frontal view of the chest is obtained. FINDINGS: ET tube is 5.2 cm above the cleve. There is an NG tube within the stomach. The hazy opacification of the right hemithorax has decreased consistent with decreasing pleural effus ion. The pulmonary vasculature remains congested. There is persistent retrocardiac opacity reflecting either pneumonia or atelectasis. There is a probable small left pleural effusion as well. There is n o pneumothorax. The heart size is normal for the technique. IMPRESSION: Persistent acute cardiopulmonary process, right greater than left, but improved compared to the prior study as described above. [facility], , 12/17/2024 6:45 AM
[2024-12-17 08:08] LABS: Glucose,Whole Blood 158 mg/dL (70-110)
[2024-12-17] MEDS: METOPROLOL TARTRATE 50 MG TAB PO SCH (09:02)
[2024-12-17] MEDS: SODIUM ZIRCONIUM CYCLOSILICATE 10 GM PACKET PO ONE (09:25)
[2024-12-17] MEDS: DEXTROSE 50% SYRINGE 50 ML IVP STA (09:25)
[2024-12-17] MEDS: INSULIN REGULAR 100 UNIT/ML VIAL (IV) IV ONE (09:25)
--- NOTE | 2024-12-17 09:42 | P.PN ---
Subjective Progress Note Date: 12/17/24 Patient is seen in follow-up for acute kidney injury. Remains off vasopressors. Intubated. On 35% FiO2 and PEEP 5 , Chemo started February 13, 2025. plan for second dose later today. Urine output 20-30 ml/hr s/p IV Lasix 80 mg yesterday worsening BUN/ Cr. K is 6.0 discussed with RN to give D50 and insulin General: No acute distress HEENT: Intubated. 35% FiO2. LUNGS: No audible rhonchi or wheezes. HEART: Rate and Rhythm are regular. ABDOMEN: Nontender. EXTREMITITES: No edema. Objective - Vital Signs Vital signs: Vital Signs Temp 98.6 F 12/17/24 08:00 Pulse 87 12/17/24 08:03 Resp 26 H 12/17/24 08:00 BP 116/52 12/17/24 08:00 Pulse Ox 95 12/17/24 08:00 FiO2 35 12/17/24 08:00 Intake & Output 12/16/24 12/17/24 12/17/24 18:59 06:59 18:59 Intake Total 733.263 707.163 154.8 Output Total 345 415 75 Balance 388.263 292.163 79.8 Weight 80.7 kg Intake: IV 86 36 3 0.9 pressure bag 36 36 3 Dexamethasone Sod Phos ( 50 Mdv) 40 mg In Dextrose 5% in Water 50 ml @ 100 mls /hr IVPB DAILY [facility] Rx#: [id number] Intake, IV Titration 137.263 161.163 86.8 Amount propofoL 1,000 mg In 137.263 161.163 86.8 Empty Bag 1 bag @ 15 MCG/ KG/MIN 7.614 mls/hr IV . Q13H9M [facility] Rx#:[id number] Tube Feeding 420 420 35 Other 90 90 30 Output: Urine 345 415 75 Other: Voiding Method Indwelling Catheter Indwelling Catheter ABP, PAP, CO, CI - Last Documented Arterial Blood Pressure 135/42 - Labs CBC & Chem 7: 12/17/24 04:00 12/17/24 04:00 Labs: Abnormal Lab Results - Last 24 Hours (Table) 12/16/24 12/16/24 12/17/24 Range/Units 11:51 20:21 02:17 WBC (3.8-10.6) k/uL RBC (4.30-5.90) m/uL Hgb (13.0-17.5) gm/dL Hct (39.0-53.0) % MCV (80.0-100.0) fL Neutrophils # (1.3-7.7) k/uL Lymphocytes # (1.0-4.8) k/uL Macrocytosis ABG pH (7.35-7.45) ABG HCO3 (21-25) mmol/L ABG O2 Saturation (94-97) % Hemoglobin (13.0-17.5) gm/dL Potassium (3.5-5.1) mmol/L Carbon Dioxide (22-30) mmol/L BUN (9-20) mg/dL Creatinine (0.66-1.25) mg/dL Glucose (74-99) mg/dL POC Glucose (mg/dL) 163 H 189 H 162 H (70-110) mg/dL Phosphorus (2.5-4.5) mg/dL Total Protein (6.3-8.2) g/dL Albumin (3.5-5.0) g/dL 12/17/24 12/17/24 12/17/24 Range/Units 03:57 04:00 04:00 WBC 12.1 H (3.8-10.6) k/uL RBC 2.09 L (4.30-5.90) m/uL Hgb 7.1 L (13.0-17.5) gm/dL Hct 22.7 L (39.0-53.0) % MCV 108.4 H (80.0-100.0) fL Neutrophils # 10.6 H (1.3-7.7) k/uL Lymphocytes # 0.3 L (1.0-4.8) k/uL Macrocytosis Marked A ABG pH 7.23 L (7.35-7.45) ABG HCO3 18 L (21-25) mmol/L ABG O2 Saturation 97.4 H (94-97) % Hemoglobin 6.9 L* (13.0-17.5) gm/dL Potassium 6.0 H (3.5-5.1) mmol/L Carbon Dioxide 18 L (22-30) mmol/L BUN 146 H* (9-20) mg/dL Creatinine 5.02 H (0.66-1.25) mg/dL Glucose 136 H (74-99) mg/dL POC Glucose (mg/dL) (70-110) mg/dL Phosphorus 12.7 H* (2.5-4.5) mg/dL Total Protein 5.2 L (6.3-8.2) g/dL Albumin 3.1 L (3.5-5.0) g/dL 12/17/24 Range/Units 08:06 WBC (3.8-10.6) k/uL RBC (4.30-5.90) m/uL Hgb (13.0-17.5) gm/dL Hct (39.0-53.0) % MCV (80.0-100.0) fL Neutrophils # (1.3-7.7) k/uL Lymphocytes # (1.0-4.8) k/uL Macrocytosis ABG pH (7.35-7.45) ABG HCO3 (21-25) mmol/L ABG O2 Saturation (94-97) % Hemoglobin (13.0-17.5) gm/dL Potassium (3.5-5.1) mmol/L Carbon Dioxide (22-30) mmol/L BUN (9-20) mg/dL Creatinine (0.66-1.25) mg/dL Glucose (74-99) mg/dL POC Glucose (mg/dL) 158 H (70-110) mg/dL Phosphorus (2.5-4.5) mg/dL Total Protein (6.3-8.2) g/dL Albumin (3.5-5.0) g/dL Assessment and Plan Assessment: Assessment: 1. Acute kidney injury secondary to ATN. No hydronephrosis noted on imaging. UA fairly benign. Creatinine 1.4 on admission and is 4.1 -> 4.5-> 5.0 today. Lasix 80 mg x1 on 12/15 and 12/16, Urine output 15 to 30 cc an hour. Creatinine in July 2024 was 0.8. hyperkalemia, hyperphosphatemia ? TLS unlikely in MM 2. Hypernatremia from lack of oral water intake. Improved with D5W. status post D5W. resolved 3. Volume overload with pleural effusions. 4. Multiple myeloma. On chemotherapy. 5. Hypercalcemia secondary to volume contraction as well as multiple myeloma. Improved. 6. Pneumonia s/p antibiotics. 7. Anemia. Due to underlying multiple myeloma. Iron deficiency noted. Receiving IV iron. Plan: medical amanagement of hyperkalemia, D50%, Insulin and Lokelma concern for TLS, S/p 1 dose Elitek., uric acid improved 17-> 7. called the patient's sister Ms. Ivan and discussed current renal function status, no significant volume overload, but high solute burden, will give IV Lasix 80 mg today, repeat labs in the afternoon, if no improvement then will plan hemodialysis initiation, will need IJ or femoral catheter. sister agreed to the plan. Avoid nephrotoxins. Continue to monitor renal function and urine output. Wean FiO2. Prognosis guarded. Continue to assess daily for need for renal replacement therapy. Patient not an ideal candidate for renal replacement therapy, Currently full code.
[2024-12-17] MEDS: FUROSEMIDE 10 MG/ML 4 ML VIAL IV STA (10:04)
--- NOTE | 2024-12-17 10:35 | P.PN ---
Subjective Progress Note Date: 12/17/24 Principal diagnosis: Pneumonia. Patient is a 79-year-old male with past medical history significant for hypertension, hyperlipidemia, KYM, multiple myeloma. His PCP is Dr. Jaimes. Also, follows with his oncologist Dr. Broderick. Patient had a bone marrow biopsy back on 11/11/2023 which was positive for multiple myeloma. Previously on systemic treatment, which he had stopped, apparently confused on whether he should continue the medication. Patient sent in by his oncologist yesterday for abnormal labs. On arrival, complaining of increased work of breathing over the last month. Occasional cough with mucus and occasional blood tinge. Workup in the ED including a chest CT angio which did not show any definite acute central pulmonary embolism, but technically limited due to suboptimal timing of contrast bolus. Overall, findings were consistent with disease progression. There was extensive soft tissue pleural metastatic deposits throughout bilateral lung henderson right greater than left. Extensive pleural metastatic disease in the left apex with involvement of the left first, second, and third ribs. Large right-sided pleural effusion and trace left-sided pleural effusion. Partially visualized upper abdomen demonstrating peritoneal carcinomatosis with large soft tissue implant in the left retroperitoneum measuring 6.4 x 4.1 cm. Bilateral hydronephrosis partially visualized. Enlarged retroperitoneal lymph node. Extensive osteolytic lesions throughout the visualized axial and appendicular skeleton compatible with osseous metastatic disease. CBC: WBC count 3.8, hemoglobin 9, platelets 134. CMP: Sodium 142, potassium 4, chloride 107, serum bicarb 21, BUN 40, creatinine 1.4, glucose 103. Lactic 1.2. Ionized calcium 5.4, magnesium 1.4, phosphorus 3.7. LFTs not elevated. Troponin 0.018. NT proBNP 1550. Viral screen negative for influenza, RSV, COVID. Patient currently being seen on the oncology floor. He is awake and alert, on 3 L/min nasal cannula, tachypneic in the mid 20s per minute. States he has been progressively more short of breath over the last month. States he uses 2 L supplemental oxygen hooked to his CPAP at bedtime. Denies chest pain, heart palpitations, lightheadedness or syncopal events, lower extremity edema. Does r eport occasional productive cough with brown mucus and occasional blood tinge. Denies any fevers, chills, chest pain, olivia hemoptysis. Denies known sick contacts. Appetite has been poor. Denies abdominal pain, nausea, vomiting, diarrhea, melena, hematochezia. Denies anticoagulant use. Denies history of previous thoracentesis. Patient was empirically covered on a combination of Zosyn and Levaquin in the ED. Current vital signs: Temperature 97.9 F, heart rate 100 bpm, blood pressure 145/66 mmHg, SpO2 recorded at 94% on 2 L/min nasal cannula. Patient was seen today on 12/07/2024, I had to move the patient earlier this morning to ICU as his right-sided pneumothorax showed some progression went from 10% to 30% overnight. Came into the ICU, and placed a Thora vent, 13 Qatari in the right pleural space with complete resolution of his right-sided pneumothorax. And more bloody effusion was drained through the Thora vent shortly after the Thora vent was placed. Again there was complete resolution of his pneumothorax, and almost near complete resolution of his pleural effusion which was bloody all along. Patient is now on 4 L nasal cannula, in no distress, he is off heparin, and considering the bloody effusion, I will hold on anticoagulation therapy for now. Patient remains on amiodarone, bronchodilators/updrafts, he is also on Zosyn and Levaquin empirically. WBC count is 4.4 hemoglobin 8.5 electrolytes are normal BUN is 33 creatinine 1.74. The fluid I drained yesterday is clearly exudative with high LDH of 1400 and protein more than 3600 this is likely consistent with malignant pleural effusion most likely related to his multiple myeloma. Patient was seen today on 12/08/2024, remains in the ICU, continues to have Thora vent in place, patient had over 1200 cc of bloody effusion drained over the last 24 hours, and prior to this I have drained over 700 cc initially and the fluid was also bloody. This is most likely a pleural effusion related to multiple myeloma, cytology is pending. Patient remains empirically on antibiotics, however I went ahead and discontinued Levaquin on this patient, and I kept him on Zosyn as he seems to be developing some worsening of his renal status, patient is clinically dry dehydrated, and I am recommending increase of his IV f luid. Hemoglobin is 7.7 WBC count is 4.7 electrolytes are normal however creatinine went up to 1.92 from 1.74 yesterday, baseline on admission was 1.40. Patient remains off heparin mostly because of his bloody effusion, patient is on 3 L nasal cannula with O2 sats of 96%. Chest x-ray today was reviewed, I did not truly appreciate a pneumothorax on the chest x-ray today, and hardly any air leak is noted. Patient was seen today on 12/09/2024, remains in the ICU, continues to have Thora vent in place, and connected to Pleur-evac. No airleak is noted, minimal drainage overnight, less than 50 cc. No further air leak is noted, hence I went ahead and disconnected the Thora vent from Pleur-evac, and applied the one-way valve on the Thora vent. Patient is doing well, relatively asymptomatic, remains on IV fluid at 75 cc/h with slight improvement in his renal status, renal ultrasound showed no evidence of hydronephrosis. Patient remains on Zosyn, Eliquis is on hold, he is also on Seroquel. Chest x-ray will be repeated sometime later today to make sure the patient does not have any expansion of pneumothorax in the right lung. Continues to have some right lower lobe consolidation,, patient remains on antibiotics. The results on the pleural effusion are pending especially the cytology, the protein in the pleural effusion and the LDH suggest that it is malignant unless proven otherwise., It is definitely exudative. WBC count is 4.5 hemoglobin 7.4 electrolytes are normal BUN is 41 creatinine 1.75. Platelets are 1 27,000. Seen today on 12/10/2024, patient is now on medical floor, very comfortable, on 3 L nasal cannula, not in distress. Patient is hemodynamically stable blood pressure is 128/65, heart rate is 84, patient is afebrile. Temp is 97.6. Chest x-ray this morning was read by the ER physician as a left-sided pneumothorax which I reviewed myself, and I fully disagreed with the reading, this would have been a spontaneous left-sided pneumothorax, however follow-up chest x-ray was done and there was no evidence of pneumothorax on the left side. But both x-rays did reflect evidence of fluid overload and pulmonary edema with bilateral pleural effusions, has I recommended diuresing the patient further today. Yesterday he responded well to Lasix, and I am recommending another dose of Lasix 40 mg IV push to be given today. His Thora vent remains off suction, but he does have the one-way valve/occluding valve. And there is no evidence of pneumothorax on the right side. But again I believe the patient is building bilateral pleural effusions again. Cytology from his pleural effusion which I drained back on 12/07 is still pending I expect it to be related to multiple myeloma. Labs today showed relatively normal electrolytes BUN is 31 creatinine is up to 1.82 Progress note dated December 11, 2024. 79-year-old male seen today in room 363. The patient appears to. He was diagnosed with pneumonia on admission. He is currently on 3 L of oxygen. He is getting Zosyn, and is getting saline at 10 cc an hour. The patient had a right pneumothorax, and had a right Thora vent placed. The patient has a history of multiple myeloma, with acute mental status changes, possibly related to hypercalcemia. Apparently the patient was off his myeloma medications for a period of time. Current laboratory data includes a white count 5.2, hemoglobin 8.1, hematocrit 24.8, and a platelet count of 140,000. Sodium 147, potassium 3.8, chlorides 112, CO2 24, anion gap 11, BUN 32, creatinine 1.99. Glucose is 103. Calcium is 10. Magnesium is 1.9. Pleural fluid sampling has thus far negative. Chest x-ray shows persistent cardiomegaly, small left-sided pleural effusion, and a larger right sided effusion. Progress note dated December 12, 2024. 79-year-old male seen today in room 363. The patient's Thora vent was removed. A repeat chest x-ray has been ordered. He is getting D5W at 50 cc an hour, and nasal O2 at 2 L. A chest x-ray done before the Thora vent was removed, did not reveal a right-sided pneumothorax. The patient's right-sided pleural effusion appears smaller. Current laboratory data includes a sodium 145, potassium 3.8, chlorides 111, CO2 24, anion gap 10, BUN 34, and creatinine 2.03. Glucose is 104. Calcium 9.9, magnesium 1.9. Progress note dated December 13, 2024. 79-year-old male seen today in the intensive care unit, room 251. Last night, the patient developed respiratory distress, with hypercapnic and hypoxemic respiratory failure. We attempted BiPAP initially, and that did not turn things around, so the patient was electively intubated and transferred to the intensive care unit. That happened before midnight. The patient is on volume assist- control, rate 20, tidal line 450, FiO2 50% PEEP of 5. Blood gases show pO2 139, pCO2 41, pH is 7.37. The patient is currently on propofol at 20 mcg/kg/min, norepinephrine at 2.5 mcg/min and D5W at 75 cc an hour, which is started today. The patient was a full code, which is why he was electively intubated. An art line was placed by the nurse mycologist. Current labs include a white count 5.5, hemoglobin 7, hematocrit 21.3, and a platelet count of 139,000. Initial postintubation gases show pO2 of 286, pCO2 45, pH is 7.33. That was on 100%. Sodium 146, potassium 4, chlorides 111, CO2 24, anion gap 11, BUN 41, creatinine 2.67. Glucose of 156. Calcium 9.2. Magnesium 1.9. Chest x-ray shows cardiomegaly, with bilateral effusions, right greater than left. There is also some central vascular congestion demonstrated. Progress note dated December 14, 2024. 79-year-old male seen in the intensive care unit again, room 251. He remains on mechanical ventilator. He is on volume assist-control, rate 20, tidal volume 450, FiO2 40%, PEEP of 5. Blood gases show pO2 of 91, pCO2 of 40, pH is 7.35. He is on propofol at 30 mcg/kg/min, D5W at 75 cc an hour. I have asked the nurses and dietary to start tube feedings. The patient had a thoracentesis done by my partner in December 06. It was positive for plasma cell myeloma. The patient is going to get chemotherapy today, as per medical oncology, which I think is extremely risky, given how sick the patient is. White count 6.6, hemoglobin 7.6, hematocrit 23.7, platelet count 154,000. Sodium 141, potassium 3.5, chlorides 109, CO2 21, BUN 47, creatinine 3.30. Glucose is 114. Calcium 9.2, magnesium 2.0. Chest x-ray shows findings consistent with either fluid overload/CHF, or pneumonia. Progress note dated December 15, 2024. 79-year-old male seen again in the intensive care unit, room 251. He remains on mechanical ventilation. He is on volume assist-control, rate 20, tidal volume 450, FiO2 40%, PEEP of 5. Blood gases show pO2 of 93, pCO2 44, pH of 7.29. The patient has a mild metabolic acidosis. He is getting propofol at 40 mcg/kg/min, vital HP at 40, with a goal of 65 cc an hour. No IV fluids. The patient may be developing tumor lysis syndrome as his uric acid is elevated as is his swati sphate. Apparently from 10 PM to 4 AM this morning, the patient did have atrial flutter, with a rate of about 100 bpm. Current labs include a white count of 7.3, hemoglobin 7.4, macro 22.9, and a platelet count of 140,000. Sodium 139, potassium 4.3, chlorides 107, CO2 21, anion gap 11, BUN 67, and creatinine 4.11. Glucose was 183. Calcium is 8.8. Uric acid is 10.9. Phosphorus is 7. Albumin is 3.2. Chest x-ray shows persistent diffuse right lung edema and/or infiltrates. The patient has a right greater than left pleural effusion. Progress note dated December 16, 2024. 79-year-old male seen again in room 251, intensive care unit. The patient remains on mechanical ventilation. He is on volume assist-control, rate 20, tidal volume 450, FiO2 35%, PEEP of 5. Blood gases show pO2 of 111, pCO2 of 46, pH 7.25. Both blood gases were done on 40% FiO2. He is on propofol at 30 mcg/kg/min, and vital high-protein at 35 cc an hour, with a goal of 65 cc an hour. White count 13.6, hemoglobin 7.3, hematocrit 23.1, platelet count 142,000. Sodium 140, potassium 5.2, chloride 105, CO2 18, anion gap 17, BUN 100, creatinine 4.54. Glucose 168. Calcium is 8.5, phosphorus is 11.1, and uric acid is 8.6. Chest x-ray shows a findings, consistent with CHF/fluid overload. Progress note dated December 17, 2024. 79-year-old male seen again in room 251. He remains on mechanical ventilation. He is on volume assist-control, rate 20, tidal volume 450, FiO2 35%, and PEEP of 5. Blood gases show pO2 of 99, pCO2 44, and pH is 7.23. Patient is getting propofol at 30 mcg/kg/min, and vital HP at 35 cc an hour, with a goal of 65. Gastric residual volumes have been elevated, so we add Reglan 10 mg every 6 to the regimen. Current white count 12.1, hemoglobin 7.1, hematocrit 22.7, platelet count 153,000. Sodium 139, potassium 6, chlorides 105, CO2 18, anion gap 16, BUN 46, creatinine 5.02. Glucose 158. Uric acid was 7.9. Phosphorus is 12.7. Albumin 3.1. Chest x-ray is largely unchanged. Objective - Vital Signs Vital signs: Vital Signs Temp 98.6 F 12/17/24 08:00 Pulse 84 12/17/24 10:00 Resp 28 H 12/17/24 10:00 BP 117/55 12/17/24 10:00 Pulse Ox 96 12/17/24 10:00 FiO2 35 12/17/24 08:00 Intake & Output 12/16/24 12/17/24 12/17/24 18:59 06:59 18:59 Intake Total 733.263 707.163 330.8 Output Total 345 415 175 Balance 388.263 292.163 155.8 Weight 80.7 kg Intake: IV 86 36 9 0.9 pressure bag 36 36 9 Dexamethasone Sod Phos ( 50 Mdv) 40 mg In Dextrose 5% in Water 50 ml @ 100 mls /hr IVPB DAILY [facility]KY Rx#: [id number] Intake, IV Titration 137.263 161.163 86.8 Amount propofoL 1,000 mg In 137.263 161.163 86.8 Empty Bag 1 bag @ 15 MCG/ KG/MIN 7.614 mls/hr IV . [id number] VIKY Rx#:[id number] Tube Feeding 420 420 105 Other 90 90 130 Output: Urine 345 415 175 Other: Voiding Method Indwelling Catheter Indwelling Catheter Indwelling Catheter ABP, PAP, CO, CI - Last Documented Arterial Blood Pressure 126/41 - Exam No acute distress, sedated, with an orally placed endotracheal tube, and NG tube. HEENT examination is grossly unremarkable. Neck supple. Full range of motion. No adenopathy thyromegaly or neck vein distention. Cardiovascular examination reveals regular rhythm rate. S1-S2 normal. No S3 or S4. No discernible murmur noted. Heart sounds are distant. Lungs reveal diminished bilateral breath sounds, right greater than left. Scattered rhonchi are appreciated. No crackles. No wheezes. Abdomen soft bowel sounds are heard. No masses or tenderness. Extremities are intact. No cyanosis clubbing or edema. Skin is without rash or lesion. Neurologic examination cannot be evaluated as the patient is currently sedated. - Labs CBC & Chem 7: 12/17/24 04:00 12/17/24 04:00 Labs: Abnormal Lab Results - Last 24 Hours (Table) 12/16/24 12/16/24 12/17/24 Range/Units 11:51 20:21 02:17 WBC (3.8-10.6) k/uL RBC (4.30-5.90) m/uL Hgb (13.0-17.5) gm/dL Hct (39.0-53.0) % MCV (80.0-100.0) fL Neutrophils # (1.3-7.7) k/uL Lymphocytes # (1.0-4.8) k/uL Macrocytosis ABG pH (7.35-7.45) ABG HCO3 (21-25) mmol/L ABG O2 Saturation (94-97) % Hemoglobin (13.0-17.5) gm/dL Potassium (3.5-5.1) mmol/L Carbon Dioxide (22-30) mmol/L BUN (9-20) mg/dL Creatinine (0.66-1.25) mg/dL Glucose (74-99) mg/dL POC Glucose (mg/dL) 163 H 189 H 162 H (70-110) mg/dL Phosphorus (2.5-4.5) mg/dL Total Protein (6.3-8.2) g/dL Albumin (3.5-5.0) g/dL 12/17/24 12/17/24 12/17/24 Range/Units 03:57 04:00 04:00 WBC 12.1 H (3.8-10.6) k/uL RBC 2.09 L (4.30-5.90) m/uL Hgb 7.1 L (13.0-17.5) gm/dL Hct 22.7 L (39.0-53.0) % MCV 108.4 H (80.0-100.0) fL Neutrophils # 10.6 H (1.3-7.7) k/uL Lymphocytes # 0.3 L (1.0-4.8) k/uL Macrocytosis Marked A ABG pH 7.23 L (7.35-7.45) ABG HCO3 18 L (21-25) mmol/L ABG O2 Saturation 97.4 H (94-97) % Hemoglobin 6.9 L* (13.0-17.5) gm/dL Potassium 6.0 H (3.5-5.1) mmol/L Carbon Dioxide 18 L (22-30) mmol/L BUN 146 H* (9-20) mg/dL Creatinine 5.02 H (0.66-1.25) mg/dL Glucose 136 H (74-99) mg/dL POC Glucose (mg/dL) (70-110) mg/dL Phosphorus 12.7 H* (2.5-4.5) mg/dL Total Protein 5.2 L (6.3-8.2) g/dL Albumin 3.1 L (3.5-5.0) g/dL 12/17/24 Range/Units 08:06 WBC (3.8-10.6) k/uL RBC (4.30-5.90) m/uL Hgb (13.0-17.5) gm/dL Hct (39.0-53.0) % MCV (80.0-100.0) fL Neutrophils # (1.3-7.7) k/uL Lymphocytes # (1.0-4.8) k/uL Macrocytosis ABG pH (7.35-7.45) ABG HCO3 (21-25) mmol/L ABG O2 Saturation (94-97) % Hemoglobin (13.0-17.5) gm/dL Potassium (3.5-5.1) mmol/L Carbon Dioxide (22-30) mmol/L BUN (9-20) mg/dL Creatinine (0.66-1.25) mg/dL Glucose (74-99) mg/dL POC Glucose (mg/dL) 158 H (70-110) mg/dL Phosphorus (2.5-4.5) mg/dL Total Protein (6.3-8.2) g/dL Albumin (3.5-5.0) g/dL Assessment and Plan Assessment: Acute hypoxemic and hypercapnic respiratory failure, multifactorial, requiring intubation, and mechanical ventilation, on December 12, 2024. S/P right sided thoracentesis, with a right-sided iatrogenic pneumothorax. S/P right Thora vent placement, with removal on December 12, 2024. Multiple myeloma, currently receiving chemotherapy. Anion gap metabolic acidosis, secondary to renal failure. Tumor lysis syndrome. Acute kidney injury with bilateral hydronephrosis, and significantly worsening renal function. Hypercalcemia, resolved. Chronic anemia. Hypertension. History of hyperlipidemia. History of obstructive sleep apnea syndrome, maintained on home CPAP. Possible right lower lobe pneumonia. Plan: Plan dated December 11, 2024. The patient is seen today in room 363. He currently is on 3 L of oxygen. No respiratory distress. He sustained a right pneumothorax after thoracentesis. Right Thora vent device is in place. The Thora vent device will be capped. Currently he is got a one-way valve on the Thora vent device. He continues on Zosyn. He is getting saline at 10 cc an hour. The patient will have a repeat chest x-ray at 1:00 today. Additional recommendations and suggestions are forthcoming. Should his lungs stay expanded, the Thora vent device will be removed. Clinically, the patient is not in any respiratory distress. He is very confused. Family members are in the room. Findings are discussed. Plan dated December 12, 2024. The patient is seen today in room 363. He continues on nasal O2 at 2 L. He is getting D5W at 50 cc an hour. A chest x-ray this morning did not reveal right- sided pneumothorax. The pleural effusion appears smaller. The Thora vent device was removed. A repeat chest x-ray has been ordered. Clinically, the patient is confused, but stable. He is not manifesting any signs or symptoms of respiratory distress. He has been weaned down to 2 L from 3. Labs, x-rays, medications are reviewed. We will continue to follow. Prognosis is guarded. Dictation was produced using [employer] software. Please excuse any grammatical, word or spelling errors. Plan dated December 13, 2024. The patient developed hypoxemic and hypercapnic respiratory failure yesterday, and failed BiPAP intervention, and was electively intubated and mechanically ventilated, and brought to the intensive care unit. The patient remains on mechanical ventilator. He is on volume assist-control, rate 20, tidal volume 450, FiO2 50% to be reduced to 40%, with a PEEP of 5. Gases show pO2 139, pCO2 41 and pH is 7.37. He is on propofol at 20 mcg/kg/min, norepinephrine at 2.5 mcg/min. We will add D5W at 75 cc an hour. I attempted to speak to a family member, Amanda Ivan, at [phone], who apparently is making the decision along with the patient's , as it relates to medical issues. She apparently is on her way into the hospital. Prognosis is poor. He remains a full code. Labs, x-rays, medications are reviewed. Dictation was produced using [employer] software. Please excuse any grammatical, word or spelling errors. Plan dated December 14, 2024. The patient is again seen in the intensive care unit, room 251. The patient's recently was weaned off norepinephrine. The patient is going to have tube feeds started, and he continues on D5W at 75 cc an hour. He is getting sedation with propofol at 30 mcg/kg/min. Thoracentesis performed on December 06, showed plasma cell myeloma. He is on the ventilator, gases show pO2 of 91, pCO2 of 40, pH of 7.35. His blood gases are consistent with a very mild metabolic acidosis. Medical oncology is planning on giving the patient chemotherapy today. I am a little concerned, as the patient is still critically ill, but I did discuss this with medical oncology who feels like this is the patient's only chance. Anyway, we will continue to support. I had a conversation with the patient's sister yesterday. At this point, the patient remains a full code. Prognosis is poor. Dictation was produced using [employer] software. Please excuse any grammatical, word or spelling errors. Plan dated December 15, 2024. The patient did receive chemotherapy as per medical oncology. Labs, x-rays, and medications are reviewed. The patient's renal function is worsening. The patient may be developing tumor lysis syndrome. The patient does have a non- anion gap metabolic acidosis. Labs, x-rays, and all medications are reviewed. Prognosis is very poor in my opinion. The arterial blood gases show pO2 of 93, pCO2 of 44, pH of 7.29. The patient continues on propofol at 40 mcg/kg/min, and vital HP at 40 cc an hour, with a goal of 65 cc an hour. The patient did have episodes of atrial flutter last night. We will continue to follow. Prognosis is guarded. Dictation was produced using [employer] software. Please excuse any grammatical, word or spelling errors. Plan dated December 16, 2024 The patient is again seen today in room 251. He continues on mechanical ventilation. In my opinion, the patient's overall prognosis is very poor. Renal function continues to deteriorate. Patient is on propofol at 30 mcg/kg/min, and vital high-protein at 35 with a goal of 65 cc an hour. Blood gases show pO2 of 111, pCO2 of 46, pH of 7.25. Blood gases are consistent with both respiratory and metabolic acidosis. All labs, x-rays, and medications are reviewed. Prognosis is certainly guarded. We will continue to follow. Dictation was produced using [employer] software. Please excuse any grammatical, word or spelling errors. Plan dated December 17, 2024. The patient is seen in room 251. The patient's renal function is worsening, and likely, he will need hemodialysis in the near future. He likely has developed tumor lysis syndrome, with hyperkalemia, hyperuricemia, and hyperphosphatemia. The patient is currently receiving chemotherapy for his multiple myeloma. Labs, x-rays, and all medications reviewed. Patient's blood gases show pO2 of 99, pCO2 44, pH is 7.23. He remains on propofol at 30 mcg/kg/min. He is getting vital high-protein at 35 with a goal of 65 cc an hour. Gastric residual volume is elevated, so we add Reglan 10 mg every 6. We will continue to follow. Prognosis is guarded. Dictation was produced using [employer] software. Please excuse any grammatical, word or spelling errors. Time with Patient: Greater than 30
--- NOTE | 2024-12-17 11:04 | P.PN ---
Subjective Date of service for this note is 12/12/2024 patient is 79-year-old gentleman with past medical history significant for mul tiple myeloma, hypertension, hyperlipidemia presented to the ER because of abnormal labs. Patient normally sees Dr. Broderick and was on systemic treatment which apparently had stopped taking. Patient had blood work drawn outpatient and was told by the dog handler to come to the ER. Patient states over the last couple of days he has been having increasing shortness of breath. Shortness of breath was present at rest as on exertion. Patient was complaining of being lethargic and weakness. Patient also complaining of productive cough with occasional episodes of hemoptysis. Denies any chest pain. There is no complaint of fever or chills. There is no complaint of orthopnea or PND. Patient denies any nausea, vomiting, pain. Patient denies any lightheaded or dizziness. Initial lab work done in the ER showed WBC 3.8, hemoglobin 9, platelet count 134 sodium 142, potassium 4, BUN 40, creatinine 1.40 glucose 103, lactate 1.2, calcium 10.5, magnesium 1.4 bilirubin 0.7, AST 27, ALT 11, troponin 0.018, proBNP 1550 Influenza A not detected Influenza B not detected RSV not detected COVID-19 not detected EKG done in the ER showed heart rate of , no ST segment elevation or depression seen, no T-wave inversions seen. Chest x-ray done in the ER showed patchy infiltrative opacity throughout the right lung with small to moderate size right pleural effusion. Questionable air-fluid level versus overlying skinfold is indeterminate for cavitary lesion or abscess. Recommend CT chest for further evaluation, consolidation in the left lung apex CT chest PE protocol done showed no definite acute PE within the vasculature, significant progression of metastatic disease with numerous pleural-based metastatic deposits and involvement of the left-sided ribs additionally there is peritoneal carcinomatosis in the partially visualized upper abdomen. Patient admitted to internal medicine service 12/07. Patient seen and examined. Status post right-sided thoracentesis with removal of 720 cc of fluid. Blood work done today showed WBC 4.9, hemoglobin 8.8, platelet count 138, sodium 143, potassium 4.1, BUN 33, creatinine 1.74, calcium 9.7 Patient had right-sided Thora vent placed this morning. Currently on 4 L of oxygen. 12/08. Patient seen and examined. Vital signs done this morning showedTemp 98, heart rate 98, respirations 30, blood pressure 125/84, currently on 2 L of oxygen. Denies any shortness of breath at rest. Currently has a Thora vent in place. Chest x-ray done this morning shows right-sided pleural effusion, right- sided chest tube in place with residual pneumothorax. 12/09. Old male patient currently sleeping, he was agitated and restless overnight and he was prescribed Seroquel 25 mg which made him calm He still tachypneic with a breathing rate around 28, he is saturating high 90s on 3 L oxygen via nasal cannula Hemoglobin slightly trending down to 7.7 and creatinine up to 1.9 His proBNP is 1550 and procalcitonin negative at 0.16 Chest x-ray reviewed by myself showing right more than left infiltrate but looks better than 2 days ago Renal ultrasound showing no hydronephrosis finger right renal cyst He is currently kept on Zosyn. On home dose of Eliquis 2.5 mg. He had pneumothorax on the right side status post Thora vent, currently he has minimal discharge from his right Thora vent 12/10 Patient moved out of the ICU to select unit He is more awake today but still confused, he was trying to pull out his lines and Thora vent. He is mildly tachypneic with talking. He can tell he is in the hospital but also still mildly confused. Serevent was Today. Repeat chest x-ray showing mild improvement in the right pneumothorax, I reviewed the chest x-ray by myself. He remains on Zosyn and home dose of Eliquis 2.5 Will going to add small dose of Seroquel 12.5. 12/11 Patient more awake trying to talk Still feel short of breath although slightly better than yesterday, breathing rate around 22 compared to 28 yesterday, his right upper chest Thora vent is in place and capped Repeat chest x-ray this morning showing right pleural effusion more than left with pulmonary vascular congestion suspicious for CHF. Currently patient off IV fluid He is on Zosyn and Eliquis 2.5 mg. 12/12 Patient in the morning was awake and alert but slightly agitated, he had a sitter at bedside. Thora vent was taken out after it was capped yesterday. His mentation was getting worse through the day and he became more tachypneic and tachycardic and he has to be placed on BiPAP. Repeat chest x-ray showing moderate to large right pleural effusion and evidence of CHF. Patient was moved to the ICU for more monitoring pH was 7.2 worsening to dispatcher tow truck to 7.08 and pCO2 was elevated at 58 worsened to 92. Creatinine also worsened up to 2.7 and sodium 146., With worsening breathing patient had to be intubated and placed on mechanical ventilation 12/13 Patient remains in the ICU intubated and sedated His breathing more quiet today. Abdomen soft Hemoglobin dropped to 7.0. Platelet count stable at 139, creatinine stable or slightly improved 2.7 down to 2.6. Patient placed on normal saline 75 mL/h. 12/14 Patient remains intubated and sedated He does not need pressors and Zosyn was discontinued He received some IV fluid Chest x-ray still showing pulmonary vascular congestion Pathology from pleural fluid came back positive for malignancy Sister and at bedside, oncology team discussing the case with them. Patient still at risk. 12/15 Patient remains intubated on mechanical ventilation in the ICU Family yesterday discussed the case with oncology team and patient remains full code and he was started on chemotherapy. Imodium can be stopped Chest x-ray showing persistent right-sided infiltrate most likely secondary to fluid and malignancy. Prognosis remains guarded and patient still high risk 12/16 Patient remains intubated and sedated Patient has no events overnight He was getting chemotherapy No IV fluid, no antibiotic chest tube feeding, he got 1 dose of 80 mg of Lasix yesterday He has good urine output of about 15 to 20 mL/h Also has low-grade temperature 100.2 yesterday and 9.9 today. Repeat chest x-ray showing CHF for right pleural effusion which is malignant pleural effusion Patient continue to get chemotherapy through tomorrow Patient has negative C. diff test 12/17 Patient still getting chemotherapy His creatinine gets worse and he has hemodialysis catheter placed in He remains intubated in the ICU on mechanical ventilation Breathing rate about 27 Creatinine worse at 5.0. Phosphorus 12.7. Glucose controlled. pH 7.23 Objective - Vital Signs Vital signs: Vital Signs Temp 98.6 F 12/17/24 08:00 Pulse 84 12/17/24 10:00 Resp 28 H 12/17/24 10:00 BP 117/55 12/17/24 10:00 Pulse Ox 96 12/17/24 10:00 FiO2 35 12/17/24 08:00 Intake & Output 12/16/24 12/17/24 12/17/24 18:59 06:59 18:59 Intake Total 733.263 707.163 330.8 Output Total 345 415 175 Balance 388.263 292.163 155.8 Weight 80.7 kg Intake: IV 86 36 9 0.9 pressure bag 36 36 9 Dexamethasone Sod Phos ( 50 Mdv) 40 mg In Dextrose 5% in Water 50 ml @ 100 mls /hr IVPB DAILY [facility] Rx#: [id number] Intake, IV Titration 137.263 161.163 86.8 Amount propofoL 1,000 mg In 137.263 161.163 86.8 Empty Bag 1 bag @ 15 MCG/ KG/MIN 7.614 mls/hr IV . Q13H9M [facility] Rx#:[id number] Tube Feeding 420 420 105 Other 90 90 130 Output: Urine 345 415 175 Other: Voiding Method Indwelling Catheter Indwelling Catheter Indwelling Catheter ABP, PAP, CO, CI - Last Documented Arterial Blood Pressure 126/41 - Exam -GENERAL: The patient is sleepy, not in any acute distress. Well developed, well nourished. HEENT: Pupils are round and equally reacting to light. EOMI. No scleral icterus. No conjunctival pallor. Normocephalic, atraumatic. No pharyngeal erythema. No thyromegaly. CARDIOVASCULAR: S1 and S2 present. No murmurs, rubs, or gallops. -PULMONARY: Chest is clear to auscultation, no wheezing , no crackles. Tachypneic, decreased breath sounds on the right side ABDOMEN: Soft, nontender, nondistended, normoactive bowel sounds. No palpable organomegaly. MUSCULOSKELETAL: No joint swelling or deformity. EXTREMITIES: No cyanosis, clubbing, or pedal edema. NEUROLOGICAL: Gross neurological examination did not reveal any focal deficits. SKIN: No rashes. no petechiae. Transfer to - Labs CBC & Chem 7: 12/17/24 04:00 12/17/24 04:00 Labs: Abnormal Lab Results - Last 24 Hours (Table) 12/16/24 12/16/24 12/17/24 Range/Units 11:51 20:21 02:17 WBC (3.8-10.6) k/uL RBC (4.30-5.90) m/uL Hgb (13.0-17.5) gm/dL Hct (39.0-53.0) % MCV (80.0-100.0) fL Neutrophils # (1.3-7.7) k/uL Lymphocytes # (1.0-4.8) k/uL Macrocytosis ABG pH (7.35-7.45) ABG HCO3 (21-25) mmol/L ABG O2 Saturation (94-97) % Hemoglobin (13.0-17.5) gm/dL Potassium (3.5-5.1) mmol/L Carbon Dioxide (22-30) mmol/L BUN (9-20) mg/dL Creatinine (0.66-1.25) mg/dL Glucose (74-99) mg/dL POC Glucose (mg/dL) 163 H 189 H 162 H (70-110) mg/dL Phosphorus (2.5-4.5) mg/dL Total Protein (6.3-8.2) g/dL Albumin (3.5-5.0) g/dL 12/17/24 12/17/24 12/17/24 Range/Units 03:57 04:00 04:00 WBC 12.1 H (3.8-10.6) k/uL RBC 2.09 L (4.30-5.90) m/uL Hgb 7.1 L (13.0-17.5) gm/dL Hct 22.7 L (39.0-53.0) % MCV 108.4 H (80.0-100.0) fL Neutrophils # 10.6 H (1.3-7.7) k/uL Lymphocytes # 0.3 L (1.0-4.8) k/uL Macrocytosis Marked A ABG pH 7.23 L (7.35-7.45) ABG HCO3 18 L (21-25) mmol/L ABG O2 Saturation 97.4 H (94-97) % Hemoglobin 6.9 L* (13.0-17.5) gm/dL Potassium 6.0 H (3.5-5.1) mmol/L Carbon Dioxide 18 L (22-30) mmol/L BUN 146 H* (9-20) mg/dL Creatinine 5.02 H (0.66-1.25) mg/dL Glucose 136 H (74-99) mg/dL POC Glucose (mg/dL) (70-110) mg/dL Phosphorus 12.7 H* (2.5-4.5) mg/dL Total Protein 5.2 L (6.3-8.2) g/dL Albumin 3.1 L (3.5-5.0) g/dL 12/17/24 Range/Units 08:06 WBC (3.8-10.6) k/uL RBC (4.30-5.90) m/uL Hgb (13.0-17.5) gm/dL Hct (39.0-53.0) % MCV (80.0-100.0) fL Neutrophils # (1.3-7.7) k/uL Lymphocytes # (1.0-4.8) k/uL Macrocytosis ABG pH (7.35-7.45) ABG HCO3 (21-25) mmol/L ABG O2 Saturation (94-97) % Hemoglobin (13.0-17.5) gm/dL Potassium (3.5-5.1) mmol/L Carbon Dioxide (22-30) mmol/L BUN (9-20) mg/dL Creatinine (0.66-1.25) mg/dL Glucose (74-99) mg/dL POC Glucose (mg/dL) 158 H (70-110) mg/dL Phosphorus (2.5-4.5) mg/dL Total Protein (6.3-8.2) g/dL Albumin (3.5-5.0) g/dL Assessment and Plan Assessment: Acute hypoxic respiratory failure required intubation and mechanical ventilation Malignant large pleural effusion status post thoracocentesis. On 12/13 has breathing that worsened because of CHF and large pleural effusion and patient has to be placed on mechanical ventilation. Pathology sample came back positive for malignant cells Iatrogenic right pneumothorax status post Thora vent placement, which was removed on 12/13 Acute kidney injury with plan to start on dialysis Multiple myeloma, s/p chemotherapy 12/15-12/17 Hypercalcemia Chronic anemia Hypertension Hyperlipidemia Obstructive sleep apnea A-fib and RVR Plan: Continue patient care in the ICU Started chemotherapy on 12/15-12/17 Patient will need probably hemodialysis per nephrology team recommendation Continue with intubation and mechanical ventilation as per pulmonary/critical care team On Lasix per material engineer Antibiotics were discontinued Continue with home dose of Eliquis Continue with the breathing treatment Pulmonary/cardiology team consult Renal ultrasound is reviewed which was basically unremarkable and hematology collagen and nephrology team are also on consult DVT prophylaxis: Eliquis GI prophylaxis: Pepcid Prognosis is guarded
[2024-12-17] MEDS: METOCLOPRAMIDE 5 MG/ML 2 ML VIAL IVP SCH (12:22)
[2024-12-17 12:32] LABS: Anion Gap 17 mmol/L; Calcium 8.4 mg/dL (8.4-10.2); Carbon Dioxide 16 mmol/L (22-30); Chloride 105 mmol/L (98-107); Glucose 139 mg/dL (74-99); Potassium 5.8 mmol/L (3.5-5.1); Sodium 138 mmol/L (137-145)
[2024-12-17 12:38] LABS: African American GFR (CKD) 11 (>60 ml/min/1.73 sqM); Non-African American GFR(CKD) 10 (>60 ml/min/1.73 sqM)
[2024-12-17 12:44] LABS: Blood Urea Nitrogen 157 mg/dL (9-20)
[2024-12-17 13:42] LABS: Glucose,Whole Blood 148 mg/dL (70-110)
[2024-12-17] MEDS: BORTEZOMIB 3.5 MG VIAL SQ ONE (13:50)
[2024-12-17 19:37] LABS: Glucose,Whole Blood 145 mg/dL (70-110)
[2024-12-17 23:53] LABS: Glucose,Whole Blood 130 mg/dL (70-110)
[2024-12-18 05:21] LABS: ABG Base Excess -10.7 mmol/L; ABG HCO3 17 mmol/L (21-25); ABG Oxygen Saturation 96.5 % (94-97); ABG PCO2 43 mmHg (35-45); ABG PO2 95 mmHg (83-108); ABG TCO2 18 mmol/L (19-24)
[2024-12-18 05:23] LABS: ABG PH 7.19 (7.35-7.45)
[2024-12-18 05:24] LABS: Allen Test Performed? no
[2024-12-18 05:56] LABS: Basophils % (A) 0 %; Eosinophils % (A) 0 %; HCT 21.9 % (39.0-53.0); Hypochromasia Marked; Lymphocytes # (A) 0.6 k/uL (1.0-4.8); Lymphocytes % (A) 5 %; MCH 34.2 pg (25.0-35.0); MCHC 32.1 g/dL (31.0-37.0); MCV 106.6 fL (80.0-100.0); Macrocytosis Moderate; Mean Platelet Volume 10.1; Monocytes # (A) 1.1 k/uL (0-1.0); Monocytes % (A) 9 %; Neutrophils # (A) 10.3 k/uL (1.3-7.7); Neutrophils % (A) 84 %; Platelet Count 164 k/uL (150-450); RBC 2.05 m/uL (4.30-5.90); RDW 14.8 % (11.5-15.5); WBC 12.3 k/uL (3.8-10.6)
[2024-12-18 06:08] LABS: Anion Gap 19 mmol/L; Calcium 8.7 mg/dL (8.4-10.2); Carbon Dioxide 16 mmol/L (22-30); Chloride 104 mmol/L (98-107); Glucose 110 mg/dL (74-99); Potassium 5.7 mmol/L (3.5-5.1); Sodium 139 mmol/L (137-145)
[2024-12-18 06:14] LABS: African American GFR (CKD) 10 (>60 ml/min/1.73 sqM); Non-African American GFR(CKD) 9 (>60 ml/min/1.73 sqM)
[2024-12-18 06:18] LABS: Blood Urea Nitrogen 191 mg/dL (9-20)
--- NOTE | 2024-12-18 08:16 | XR ---
EXAMINATION TYPE: XR chest 1V portable DATE OF EXAM: 12/18/2024 5:21 AM COMPARISON: Chest radiographs from 12/17/2024 CLINICAL INDICATION: Male, 79 years old with history of on vent.; [facility] TECHNIQUE: XR chest 1V portable Frontal view of the chest. FINDINGS: Prominent skinfold folds throughout the left thorax lung markings are seen beyond this. Lungs/Pleura: Blunting of the right costophrenic angle. There is no evidence of left pleural effusio n, focal consolidation, or pneumothorax Pulmonary vascularity: Unremarkable. Heart/mediastinum: Cardiomediastinal silhouette is unremarkable. Musculoskeletal: No acute osseous pathology. Other findings: None Lines/Tubes: Endotracheal tube with distal tip 5.9 cm above the cleve. Nasogastric tube with its distal tip and side-port projecting under the diaphragm. IMPRESSION: 1. Layering right pleural effusion. 2. Endotracheal tube in satisfactory position. [facility], , 12/18/2024 8:14 AM
[2024-12-18 09:03] LABS: Glucose,Whole Blood 144 mg/dL (70-110)
[2024-12-18] MEDS: SODIUM BICARB 8.4% 50 ML SYR (1 MEQ/ML) IV STA (09:03)
[2024-12-18] MEDS: DEXTROSE 5% IN WATER 1,000 ML with SODIUM BICARB (1 MEQ/ML) 150 ML IV SCH (09:36)
[2024-12-18] MEDS: NOREPINEPHRINE 4 MG in SODIUM CHLORIDE 0.9% 250 ML IV SCH (09:52)
--- NOTE | 2024-12-18 11:55 | P.PN ---
Subjective Date of service for this note is 12/12/2024 patient is 79-year-old gentleman with past medical history significant for mul tiple myeloma, hypertension, hyperlipidemia presented to the ER because of abnormal labs. Patient normally sees Dr. Broderick and was on systemic treatment which apparently had stopped taking. Patient had blood work drawn outpatient and was told by the lockstitch lining setter to come to the ER. Patient states over the last couple of days he has been having increasing shortness of breath. Shortness of breath was present at rest as on exertion. Patient was complaining of being lethargic and weakness. Patient also complaining of productive cough with occasional episodes of hemoptysis. Denies any chest pain. There is no complaint of fever or chills. There is no complaint of orthopnea or PND. Patient denies any nausea, vomiting, pain. Patient denies any lightheaded or dizziness. Initial lab work done in the ER showed WBC 3.8, hemoglobin 9, platelet count 134 sodium 142, potassium 4, BUN 40, creatinine 1.40 glucose 103, lactate 1.2, calcium 10.5, magnesium 1.4 bilirubin 0.7, AST 27, ALT 11, troponin 0.018, proBNP 1550 Influenza A not detected Influenza B not detected RSV not detected COVID-19 not detected EKG done in the ER showed heart rate of , no ST segment elevation or depression seen, no T-wave inversions seen. Chest x-ray done in the ER showed patchy infiltrative opacity throughout the right lung with small to moderate size right pleural effusion. Questionable air-fluid level versus overlying skinfold is indeterminate for cavitary lesion or abscess. Recommend CT chest for further evaluation, consolidation in the left lung apex CT chest PE protocol done showed no definite acute PE within the vasculature, significant progression of metastatic disease with numerous pleural-based metastatic deposits and involvement of the left-sided ribs additionally there is peritoneal carcinomatosis in the partially visualized upper abdomen. Patient admitted to internal medicine service 12/07. Patient seen and examined. Status post right-sided thoracentesis with removal of 720 cc of fluid. Blood work done today showed WBC 4.9, hemoglobin 8.8, platelet count 138, sodium 143, potassium 4.1, BUN 33, creatinine 1.74, calcium 9.7 Patient had right-sided Thora vent placed this morning. Currently on 4 L of oxygen. 12/08. Patient seen and examined. Vital signs done this morning showedTemp 98, heart rate 98, respirations 30, blood pressure 125/84, currently on 2 L of oxygen. Denies any shortness of breath at rest. Currently has a Thora vent in place. Chest x-ray done this morning shows right-sided pleural effusion, right- sided chest tube in place with residual pneumothorax. 12/09. Old male patient currently sleeping, he was agitated and restless overnight and he was prescribed Seroquel 25 mg which made him calm He still tachypneic with a breathing rate around 28, he is saturating high 90s on 3 L oxygen via nasal cannula Hemoglobin slightly trending down to 7.7 and creatinine up to 1.9 His proBNP is 1550 and procalcitonin negative at 0.16 Chest x-ray reviewed by myself showing right more than left infiltrate but looks better than 2 days ago Renal ultrasound showing no hydronephrosis finger right renal cyst He is currently kept on Zosyn. On home dose of Eliquis 2.5 mg. He had pneumothorax on the right side status post Thora vent, currently he has minimal discharge from his right Thora vent 12/10 Patient moved out of the ICU to select unit He is more awake today but still confused, he was trying to pull out his lines and Thora vent. He is mildly tachypneic with talking. He can tell he is in the hospital but also still mildly confused. Serevent was Today. Repeat chest x-ray showing mild improvement in the right pneumothorax, I reviewed the chest x-ray by myself. He remains on Zosyn and home dose of Eliquis 2.5 Will going to add small dose of Seroquel 12.5. 12/11 Patient more awake trying to talk Still feel short of breath although slightly better than yesterday, breathing rate around 22 compared to 28 yesterday, his right upper chest Thora vent is in place and capped Repeat chest x-ray this morning showing right pleural effusion more than left with pulmonary vascular congestion suspicious for CHF. Currently patient off IV fluid He is on Zosyn and Eliquis 2.5 mg. 12/12 Patient in the morning was awake and alert but slightly agitated, he had a sitter at bedside. Thora vent was taken out after it was capped yesterday. His mentation was getting worse through the day and he became more tachypneic and tachycardic and he has to be placed on BiPAP. Repeat chest x-ray showing moderate to large right pleural effusion and evidence of CHF. Patient was moved to the ICU for more monitoring pH was 7.2 worsening to factory helper to 7.08 and pCO2 was elevated at 58 worsened to 92. Creatinine also worsened up to 2.7 and sodium 146., With worsening breathing patient had to be intubated and placed on mechanical ventilation 12/13 Patient remains in the ICU intubated and sedated His breathing more quiet today. Abdomen soft Hemoglobin dropped to 7.0. Platelet count stable at 139, creatinine stable or slightly improved 2.7 down to 2.6. Patient placed on normal saline 75 mL/h. 12/14 Patient remains intubated and sedated He does not need pressors and Zosyn was discontinued He received some IV fluid Chest x-ray still showing pulmonary vascular congestion Pathology from pleural fluid came back positive for malignancy Sister and at bedside, oncology team discussing the case with them. Patient still at risk. 12/15 Patient remains intubated on mechanical ventilation in the ICU Family yesterday discussed the case with oncology team and patient remains full code and he was started on chemotherapy. Imodium can be stopped Chest x-ray showing persistent right-sided infiltrate most likely secondary to fluid and malignancy. Prognosis remains guarded and patient still high risk 12/16 Patient remains intubated and sedated Patient has no events overnight He was getting chemotherapy No IV fluid, no antibiotic chest tube feeding, he got 1 dose of 80 mg of Lasix yesterday He has good urine output of about 15 to 20 mL/h Also has low-grade temperature 100.2 yesterday and 9.9 today. Repeat chest x-ray showing CHF for right pleural effusion which is malignant pleural effusion Patient continue to get chemotherapy through tomorrow Patient has negative C. diff test 12/17 Patient still getting chemotherapy His creatinine gets worse and he has hemodialysis catheter placed in He remains intubated in the ICU on mechanical ventilation Breathing rate about 27 Creatinine worse at 5.0. Phosphorus 12.7. Glucose controlled. pH 7.23 12/18 Patient remains in the ICU intubated and sedated. Patient is today finished his chemotherapy per oncology team. Today he is not getting chemotherapy there is another cycle in order for chemotherapy on 12/21. However patient today developing worsening hypotension requiring Levophed and also started on sodium bicarb. Potassium and creatinine trending up, currently 5.6 with a plan for hemodialysis per production corrugator. Hemoglobin 7.0. Leukocytosis is increased but pH is low at 7.1. Chest x-ray showing same malignant pleural effusion. Prognosis tomy guarded Active Medications Generic Name Dose Route Start Last Admin Trade Name Freq PRN Reason Stop Dose Admin Albuterol/Ipratropium 3 ml 12/14/24 12:00 12/18/24 11:06 Ipratropium-Albuterol 3 Ml Neb INHALATION 3 ml RT-Q4H VIKY Administration Amiodarone HCl 200 mg 12/07/24 12:30 12/18/24 09:11 Amiodarone 200 Mg Tab PO 200 mg BID VIKY Administration Bortezomib 2.75 mg 12/21/24 14:00 Bortezomib 3.5 Mg Vial SQ 12/21/24 14:01 ONCE ONE Bortezomib 2.75 mg 12/24/24 14:00 Bortezomib 3.5 Mg Vial SQ 12/24/24 14:01 ONCE ONE Chlorhexidine Gluconate 15 ml 12/13/24 01:00 12/18/24 09:11 Chlorhexidine Gluconate 15 Ml Cup MUCOUS MEM 15 ml BID VIKY Administration Dexamethasone 40 mg 12/22/24 09:00 Dexamethasone 4 Mg Tab PO 12/25/24 09:01 DAILY VIKY Dexamethasone 40 mg 12/30/24 09:00 Dexamethasone 4 Mg Tab PO 01/02/25 09:01 DAILY VIKY Dextrose/Water 25 ml 12/15/24 19:22 Dextrose 50% Syringe 50 Ml IVP PER PROTOCOL PRN Hypoglycemia Protocol Dextrose/Water 50 ml 12/15/24 19:22 Dextrose 50% Syringe 50 Ml IVP PER PROTOCOL PRN Hypoglycemia Protocol Famotidine 20 mg 12/14/24 13:00 12/14/24 13:39 Famotidine 20 Mg/2 Ml Vial IVP 01/04/25 13:01 20 mg Q7D VIKY Administration Hydromorphone HCl 1 mg 12/15/24 15:14 12/17/24 02:19 Hydromorphone 1 Mg/Ml 1 Ml Syringe IVP 1 mg Q4HR PRN Administration Pain Propofol 1,000 mg/ IV Solution 100 mls @ 7.614 mls/hr 12/13/24 01:00 12/18/24 09:30 IV 15 mcg/kg/min .Q13H9M VIKY 7.614 mls/hr Titration Protocol 15 MCG/KG/MIN Cyclophosphamide 600 mg/ 253 mls @ 506 mls/hr 12/14/24 14:00 12/14/24 14:36 Sodium Chloride IV 01/04/25 14:29 506 mls/hr Q7D VIKY Administration Ondansetron HCl 16 mg/ Sodium 58 mls @ 232 mls/hr 12/14/24 13:00 12/14/24 13:38 Chloride IVPB 01/04/25 13:14 232 mls/hr Q7D VIKY Administration Sodium Bicarbonate 150 ml/ 1,150 mls @ 75 mls/hr 12/18/24 09:00 12/18/24 09 :36 Dextrose/Water IV 75 mls/hr .[id number] VIKY Administration Norepinephrine Bitartrate 4 mg 254 mls @ 9.464 mls/hr 12/18/24 09:45 12/18/24 10:34 / Sodium Chloride IV 0.05 mcg/kg/min .Q24H VIKY 15.773 mls/hr Titration Protocol 0.03 MCG/KG/MIN Insulin Human Lispro 0 unit 12/15/24 20:00 12/18/24 09:06 Insulin Lispro (Humalog) 100 Unit/Ml 10 Ml Vl SQ Not Given Q6H VIKY Protocol Metoclopramide HCl 10 mg 12/17/24 12:00 12/18/24 05:26 Metoclopramide 5 Mg/Ml 2 Ml Vial IVP 10 mg Q6HR VIKY Administration Metoprolol Tartrate 50 mg 12/17/24 09:00 12/18/24 09:11 Metoprolol Tartrate 50 Mg Tab PO 50 mg DAILY VIKY Administration Miscellaneous Information 1 each 12/05/24 18:42 Pneumonia Protocol Utilized 1 Each Misc PO ONCE PRN Per Protocol Miscellaneous Information 1 each 12/08/24 06:49 Potassium Replacement Protocol 1 Each Misc MISCELLANE DAILY PRN Per Protocol Protocol Miscellaneous Information 1 each 12/13/24 01:51 Magnesium Replacement Protocol 1 Each Misc MISCELLANE DAILY PRN Per Protocol Protocol Naloxone HCl 0.2 mg 12/13/24 01:51 Naloxone 0.4 Mg/Ml 1 Ml Vial IV Q2M PRN Opioid Reversal Objective - Vital Signs Vital signs: Vital Signs Temp 99.6 F 12/18/24 09:00 Pulse 84 12/18/24 11:06 Resp 26 H 12/18/24 11:00 BP 104/53 12/18/24 10:45 Pulse Ox 98 12/18/24 11:00 FiO2 35 12/18/24 11:06 Intake & Output 12/17/24 12/18/24 12/18/24 18:59 06:59 18:59 Intake Total 774.239 682.322 280.594 Output Total 485 1385 515 Balance 289.239 -702.678 -234.406 Weight 82.8 kg 82.8 kg Intake: IV 33 39 9 0.9 pressure bag 33 39 9 Intake, IV Titration 166.239 188.322 136.594 Amount Dextrose 5% in Water 1, 75 000 ml @ 75 mls/hr IV . [id number] VIKY with Sodium Bicarb (1 Meq/ml) 150 ml Rx#:[id number] Norepinephrine 4 mg In 8.465 Sodium Chloride 0.9% 250 ml @ 0.03 MCG/KG/MIN 9. 464 mls/hr IV .Q24H VIKY Rx#:[id number] propofoL 1,000 mg In 166.239 188.322 53.129 Empty Bag 1 bag @ 15 MCG/ KG/MIN 7.614 mls/hr IV . Q13H9M VIKY Rx#:[id number] Tube Feeding 385 455 105 Other 190 30 Output: Urine 485 385 115 Stool 1000 400 Other: Voiding Method Indwelling Catheter Indwelling Catheter ABP, PAP, CO, CI - Last Documented Arterial Blood Pressure 96/35 - Exam -GENERAL: The patient is sleepy, not in any acute distress. Well developed, well nourished. HEENT: Pupils are round and equally reacting to light. EOMI. No scleral icterus. No conjunctival pallor. Normocephalic, atraumatic. No pharyngeal erythema. No thyromegaly. CARDIOVASCULAR: S1 and S2 present. No murmurs, rubs, or gallops. -PULMONARY: Chest is clear to auscultation, no wheezing , no crackles. Tachypneic, decreased breath sounds on the right side ABDOMEN: Soft, nontender, nondistended, normoactive bowel sounds. No palpable organomegaly. MUSCULOSKELETAL: No joint swelling or deformity. EXTREMITIES: No cyanosis, clubbing, or pedal edema. NEUROLOGICAL: Gross neurological examination did not reveal any focal deficits. SKIN: No rashes. no petechiae. Transfer to - Labs CBC & Chem 7: 12/18/24 05:30 12/18/24 05:30 Labs: Abnormal Lab Results - Last 24 Hours (Table) 12/17/24 12/17/24 12/17/24 Range/Units 12:10 13:40 19:36 WBC (3.8-10.6) k/uL RBC (4.30-5.90) m/uL Hgb (13.0-17.5) gm/dL Hct (39.0-53.0) % MCV (80.0-100.0) fL Neutrophils # (1.3-7.7) k/uL Lymphocytes # (1.0-4.8) k/uL Monocytes # (0-1.0) k/uL ABG pH (7.35-7.45) ABG HCO3 (21-25) mmol/L ABG Total CO2 (19-24) mmol/L Hemoglobin (13.0-17.5) gm/dL Potassium 5.8 H (3.5-5.1) mmol/L Carbon Dioxide 16 L (22-30) mmol/L BUN 157 H* (9-20) mg/dL Creatinine 5.13 H (0.66-1.25) mg/dL Glucose 139 H (74-99) mg/dL POC Glucose (mg/dL) 148 H 145 H (70-110) mg/dL 12/17/24 12/18/24 12/18/24 Range/Units 23:51 05:16 05:30 WBC 12.3 H (3.8-10.6) k/uL RBC 2.05 L (4.30-5.90) m/uL Hgb 7.0 L (13.0-17.5) gm/dL Hct 21.9 L (39.0-53.0) % MCV 106.6 H (80.0-100.0) fL Neutrophils # 10.3 H (1.3-7.7) k/uL Lymphocytes # 0.6 L (1.0-4.8) k/uL Monocytes # 1.1 H (0-1.0) k/uL ABG pH 7.19 L* (7.35-7.45) ABG HCO3 17 L (21-25) mmol/L ABG Total CO2 18 L (19-24) mmol/L Hemoglobin 6.8 L* (13.0-17.5) gm/dL Potassium (3.5-5.1) mmol/L Carbon Dioxide (22-30) mmol/L BUN (9-20) mg/dL Creatinine (0.66-1.25) mg/dL Glucose (74-99) mg/dL POC Glucose (mg/dL) 130 H (70-110) mg/dL 12/18/24 12/18/24 Range/Units 05:30 09:02 WBC (3.8-10.6) k/uL RBC (4.30-5.90) m/uL Hgb (13.0-17.5) gm/dL Hct (39.0-53.0) % MCV (80.0-100.0) fL Neutrophils # (1.3-7.7) k/uL Lymphocytes # (1.0-4.8) k/uL Monocytes # (0-1.0) k/uL ABG pH (7.35-7.45) ABG HCO3 (21-25) mmol/L ABG Total CO2 (19-24) mmol/L Hemoglobin (13.0-17.5) gm/dL Potassium 5.7 H (3.5-5.1) mmol/L Carbon Dioxide 16 L (22-30) mmol/L BUN 191 H* (9-20) mg/dL Creatinine 5.67 H (0.66-1.25) mg/dL Glucose 110 H (74-99) mg/dL POC Glucose (mg/dL) 144 H (70-110) mg/dL Assessment and Plan Assessment: Acute hypoxic respiratory failure required intubation and mechanical ventilation Malignant large pleural effusion status post thoracocentesis. On 12/13 has breathing that worsened because of CHF and large pleural effusion and patient has to be placed on mechanical ventilation. Pathology sample came back positive for malignant cells Iatrogenic right pneumothorax status post Thora vent placement, which was removed on 12/13 Possible septic shock Acute kidney injury with plan to start on dialysis Multiple myeloma, s/p chemotherapy 12/15-12/17 Hypercalcemia Chronic anemia Hypertension Hyperlipidemia Obstructive sleep apnea A-fib and RVR Plan: Continue patient care in the ICU Started chemotherapy on 12/15-12/17. Another plan of chemotherapy is planned on Started on Levophed and sodium bicarb Patient with worsening leukocytosis although this also could be explained by steroids. Also patient has a fever around 100 degree and chest x-ray showing malignant effusion, there is suspicion of infection therefore recommend start the patient on Zosyn and check procalcitonin Patient will need probably hemodialysis per nephrology team recommendation Continue with intubation and mechanical ventilation as per pulmonary/critical care team On Lasix per production corrugator Antibiotics were discontinued Continue with home dose of Eliquis Continue with the breathing treatment Pulmonary/cardiology team consult Renal ultrasound is reviewed which was basically unremarkable and hematology collagen and nephrology team are also on consult DVT prophylaxis: Eliquis GI prophylaxis: Pepcid Prognosis is guarded
[2024-12-18 12:19] LABS: Glucose,Whole Blood 149 mg/dL (70-110)
--- NOTE | 2024-12-18 12:40 | P.PN ---
Subjective Patient is seen for follow-up for acute kidney injury. Patient is intubated, FiO2 at 35%. Family is present at bedside Renal replacement therapy has been discussed with the family and at this point they have not made the decision yet. BUN is 191 today with creatinine of 5.67. Potassium was 5.7. Started on bicarb drip this morning. Urine output 30 to 35 cc an hour. Objective - Vital Signs Vital signs: Vital Signs Temp 99.6 F 12/18/24 09:00 Pulse 86 12/18/24 12:00 Resp 25 H 12/18/24 12:00 BP 104/53 12/18/24 10:45 Pulse Ox 98 12/18/24 12:00 FiO2 35 12/18/24 11:06 Intake & Output 12/17/24 12/18/24 12/18/24 18:59 06:59 18:59 Intake Total 774.239 682.322 436.594 Output Total 485 1385 585 Balance 289.239 -702.678 -148.406 Weight 82.8 kg 82.8 kg Intake: IV 33 39 15 0.9 pressure bag 33 39 15 Intake, IV Titration 166.239 188.322 286.594 Amount Dextrose 5% in Water 1, 225 000 ml @ 75 mls/hr IV . [id number] VIKY with Sodium Bicarb (1 Meq/ml) 150 ml Rx#:[id number] Norepinephrine 4 mg In 8.465 Sodium Chloride 0.9% 250 ml @ 0.03 MCG/KG/MIN 9. 464 mls/hr IV .Q24H VIKY Rx#:[id number] propofoL 1,000 mg In 166.239 188.322 53.129 Empty Bag 1 bag @ 15 MCG/ KG/MIN 7.614 mls/hr IV . Q13H9M VIKY Rx#:[id number] Tube Feeding 385 455 105 Other 190 30 Output: Urine 485 385 185 Stool 1000 400 Other: Voiding Method Indwelling Catheter Indwelling Catheter ABP, PAP, CO, CI - Last Documented Arterial Blood Pressure 106/36 - Exam Patient is intubated and on the vent Examination of the heart S1 and S2 Examination of the lungs bilateral breath sounds are heard Abdomen is soft nontender Examination of lower extremities shows no significant edema - Labs CBC & Chem 7: 12/18/24 05:30 12/18/24 05:30 Labs: Abnormal Lab Results - Last 24 Hours (Table) 12/17/24 12/17/24 12/17/24 Range/Units 12:10 13:40 19:36 WBC (3.8-10.6) k/uL RBC (4.30-5.90) m/uL Hgb (13.0-17.5) gm/dL Hct (39.0-53.0) % MCV (80.0-100.0) fL Neutrophils # (1.3-7.7) k/uL Lymphocytes # (1.0-4.8) k/uL Monocytes # (0-1.0) k/uL ABG pH (7.35-7.45) ABG HCO3 (21-25) mmol/L ABG Total CO2 (19-24) mmol/L Hemoglobin (13.0-17.5) gm/dL Potassium 5.8 H (3.5-5.1) mmol/L Carbon Dioxide 16 L (22-30) mmol/L BUN 157 H* (9-20) mg/dL Creatinine 5.13 H (0.66-1.25) mg/dL Glucose 139 H (74-99) mg/dL POC Glucose (mg/dL) 148 H 145 H (70-110) mg/dL 12/17/24 12/18/24 12/18/24 Range/Units 23:51 05:16 05:30 WBC 12.3 H (3.8-10.6) k/uL RBC 2.05 L (4.30-5.90) m/uL Hgb 7.0 L (13.0-17.5) gm/dL Hct 21.9 L (39.0-53.0) % MCV 106.6 H (80.0-100.0) fL Neutrophils # 10.3 H (1.3-7.7) k/uL Lymphocytes # 0.6 L (1.0-4.8) k/uL Monocytes # 1.1 H (0-1.0) k/uL ABG pH 7.19 L* (7.35-7.45) ABG HCO3 17 L (21-25) mmol/L ABG Total CO2 18 L (19-24) mmol/L Hemoglobin 6.8 L* (13.0-17.5) gm/dL Potassium (3.5-5.1) mmol/L Carbon Dioxide (22-30) mmol/L BUN (9-20) mg/dL Creatinine (0.66-1.25) mg/dL Glucose (74-99) mg/dL POC Glucose (mg/dL) 130 H (70-110) mg/dL 12/18/24 12/18/24 12/18/24 Range/Units 05:30 09:02 12:18 WBC (3.8-10.6) k/uL RBC (4.30-5.90) m/uL Hgb (13.0-17.5) gm/dL Hct (39.0-53.0) % MCV (80.0-100.0) fL Neutrophils # (1.3-7.7) k/uL Lymphocytes # (1.0-4.8) k/uL Monocytes # (0-1.0) k/uL ABG pH (7.35-7.45) ABG HCO3 (21-25) mmol/L ABG Total CO2 (19-24) mmol/L Hemoglobin (13.0-17.5) gm/dL Potassium 5.7 H (3.5-5.1) mmol/L Carbon Dioxide 16 L (22-30) mmol/L BUN 191 H* (9-20) mg/dL Creatinine 5.67 H (0.66-1.25) mg/dL Glucose 110 H (74-99) mg/dL POC Glucose (mg/dL) 144 H 149 H (70-110) mg/dL Assessment and Plan Assessment: 1. Acute kidney injury most likely ATN currently nonoliguric, UA is benign ult rasound does not show any evidence of obstruction. Serum creatinine 1.4 on admission and 0.8 on 07/27/2024. Renal function continues to deteriorate. Discussed renal replacement therapy with patient's family. They are undecided at this point. 2. Right pleural effusion status post thoracentesis with development of pneumothorax status post Thora vent with resolution of pneumothorax 3. Anemia with no active bleeding noted. Underlying history of multiple myeloma 4. Multiple myeloma being followed by Dr. Aden. Maintained on chemotherapy 5. Hypercalcemia on initial admission possibly related to hypovolemia, now improved to 9.4. Patient has had significant hypercalcemia previously most l ikely related to multiple myeloma in October 2023 6. Anion gap metabolic acidosis secondary to acute kidney injury and 7. Hyperkalemia associated with acute kidney injury Plan: Agree with switching to bicarb drip Discussed renal replacement therapy with patient's family. I have advised them that if they decide to proceed with aggressive care we will need to plan for first treatment of hemodialysis today. Repeat potassium later on this afternoon. Overall prognosis is guarded.
[2024-12-18] MEDS: PIPERACILLIN-TAZOBACTAM 3.375 GM in SODIUM CHLORIDE 0.9% 100 ML IVPB SCH ×2 (12:49→18:38)
--- NOTE | 2024-12-18 14:15 | P.PN ---
Subjective Progress Note Date: 12/18/24 Will continue to follow 12/18/2024 the patient is being seen for a follow-up. The patient remains intubated on mechanical ventilator. This morning, the patient on propofol running at 20 mcg/kg/min. The patient remains on assist- control mode mechanical ventilation and the patient is on a rate of 20, tidal volume of 450, FiO2 of 35% with a PEEP of 5. Blood gas showed a pH of 7.19 with a pCO2 of 43 and pO2 of 95. Chest x-ray is essentially unchanged. There is no evidence of any pneumothorax. There is a large right-sided pleural effusion and no evidence of any left-sided pleural effusion. ET tube is in a good location. The patient is producing urine output in the order of 30 to 40 cc an hour. The cardiac rhythm In the sinus. The patient did has a fecal management system in place and the patient has produced a total of 100 cc of stool every 2 hours, a total of 1 L over the past 24 hours. Stool for C. difficile has been negative. He continues to receive enteral feeding for nutritional support and the patient is on a vital high-protein at 20 to 35 cc an hour. The white cell count is at 1.3 with a hemoglobin of 7 and a platelet count of 164. Potassium level is at 5.7. BUN is 191 and the creatinine is at 5.6 and a sodium levels of 139 and potassium level is at 5.7. Nephrology on the case. Renal replacement therapy was discussed with the family and at this point they have not made the decision. The patient was started on a bicarb infusion. Afebrile. Hemodynamically stabl e. Remains on Velcade. Remains on cyclophosphamide. Remains on Decadron regarding multiple myeloma. Objective - Vital Signs Vital signs: Vital Signs Temp 100.0 F H 12/18/24 04:00 Pulse 100 12/18/24 07:40 Resp 16 12/18/24 07:00 BP 114/47 12/18/24 07:00 Pulse Ox 96 12/18/24 07:00 FiO2 35 12/18/24 07:29 Intake & Output 12/17/24 12/18/24 12/18/24 18:59 06:59 18:59 Intake Total 774.239 682.322 Output Total 485 1385 Balance 289.239 -702.678 Weight 82.8 kg Intake: IV 33 39 0.9 pressure bag 33 39 Intake, IV Titration 166.239 188.322 Amount propofoL 1,000 mg In 166.239 188.322 Empty Bag 1 bag @ 15 MCG/ KG/MIN 7.614 mls/hr IV . Q13H9M [facility] [place] Rx#:[id number] Tube Feeding 385 455 Other 190 Output: Urine 485 385 Stool 1000 Other: Voiding Method Indwelling Catheter Indwelling Catheter ABP, PAP, CO, CI - Last Documented Arterial Blood Pressure 106/35 - Exam The patient appeared well nourished and normally developed. Vital signs as documented. The patient remains intubated on mechanical ventilator. The patient is sedated with propofol. Head exam is unremarkable. No scleral icterus or corneal arcus noted. Neck is without jugular venous distension, thyromegaly, or carotid bruits. Carotid upstrokes are brisk bilaterally. Orogastric and orotracheal tube are both in place. Lungs irregular breathing and diminished breath sound right compared to the left related to pleural effusion. Cardiac exam reveals the PMI to be normally sized and situated. Rhythm is regular. First and second heart sounds normal. No murmurs, rubs or gallops. Abdominal exam reveals normal bowel sounds, no masses, no organomegaly and no aortic enlargement. Extremities are edematous and both femoral and pedal pulses are normal. The pulses in general are diminished and the extremities are edematous. Examination of the skin revealed no evidence of significant rashes, suspicious appearing nevi or other concerning lesions. Neurologically, the patient is sedated, unable to communicate , Withdraws only to deep painful stimulation. - Labs CBC & Chem 7: 12/18/24 05:30 12/18/24 12:40 Labs: Abnormal Lab Results - Last 24 Hours (Table) 12/17/24 12/17/24 12/17/24 Range/Units 08:06 12:10 13:40 WBC (3.8-10.6) k/uL RBC (4.30-5.90) m/uL Hgb (13.0-17.5) gm/dL Hct (39.0-53.0) % MCV (80.0-100.0) fL Neutrophils # (1.3-7.7) k/uL Lymphocytes # (1.0-4.8) k/uL Monocytes # (0-1.0) k/uL ABG pH (7.35-7.45) ABG HCO3 (21-25) mmol/L ABG Total CO2 (19-24) mmol/L Hemoglobin (13.0-17.5) gm/dL Potassium 5.8 H (3.5-5.1) mmol/L Carbon Dioxide 16 L (22-30) mmol/L BUN 157 H* (9-20) mg/dL Creatinine 5.13 H (0.66-1.25) mg/dL Glucose 139 H (74-99) mg/dL POC Glucose (mg/dL) 158 H 148 H (70-110) mg/dL 12/17/24 12/17/24 12/18/24 Range/Units 19:36 23:51 05:16 WBC (3.8-10.6) k/uL RBC (4.30-5.90) m/uL Hgb (13.0-17.5) gm/dL Hct (39.0-53.0) % MCV (80.0-100.0) fL Neutrophils # (1.3-7.7) k/uL Lymphocytes # (1.0-4.8) k/uL Monocytes # (0-1.0) k/uL ABG pH 7.19 L* (7.35-7.45) ABG HCO3 17 L (21-25) mmol/L ABG Total CO2 18 L (19-24) mmol/L Hemoglobin 6.8 L* (13.0-17.5) gm/dL Potassium (3.5-5.1) mmol/L Carbon Dioxide (22-30) mmol/L BUN (9-20) mg/dL Creatinine (0.66-1.25) mg/dL Glucose (74-99) mg/dL POC Glucose (mg/dL) 145 H 130 H (70-110) mg/dL 12/18/24 12/18/24 Range/Units 05:30 05:30 WBC 12.3 H (3.8-10.6) k/uL RBC 2.05 L (4.30-5.90) m/uL Hgb 7.0 L (13.0-17.5) gm/dL Hct 21.9 L (39.0-53.0) % MCV 106.6 H (80.0-100.0) fL Neutrophils # 10.3 H (1.3-7.7) k/uL Lymphocytes # 0.6 L (1.0-4.8) k/uL Monocytes # 1.1 H (0-1.0) k/uL ABG pH (7.35-7.45) ABG HCO3 (21-25) mmol/L ABG Total CO2 (19-24) mmol/L Hemoglobin (13.0-17.5) gm/dL Potassium 5.7 H (3.5-5.1) mmol/L Carbon Dioxide 16 L (22-30) mmol/L BUN 191 H* (9-20) mg/dL Creatinine 5.67 H (0.66-1.25) mg/dL Glucose 110 H (74-99) mg/dL POC Glucose (mg/dL) (70-110) mg/dL Assessment and Plan Plan: Acute hypoxemic and hypercapnic respiratory failure, multifactorial, requiring intubation, and mechanical ventilation, on December 12, 2024. The patient has a large right-sided pleural effusion. Oxygenation is stable while being on mechanical ventilator. Nevertheless, the patient has developed significant metabolic acidosis. S/P right sided thoracentesis, with a right-sided iatrogenic pneumothorax, recovered. Pleural fluid was exudative and there is reaccumulation of the right-sided pleural effusion S/P right Thora vent placement, with removal on December 12, 2024. Multiple myeloma, relapsed high 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, the patient completed 7 cycles of RVD in May 2024 achieving very good partial response with 99% reduction in kappa light chain. The patient has been on maintenance Revlimid 10 mg daily, which he stopped taking September 2024 for unclear reasons, and the patient is currently on Revlimid, Cytoxan and Decadron. Anion gap metabolic acidosis, secondary to renal failure Hyperkalemia Tumor lysis syndrome, improved Acute kidney injury with bilateral hydronephrosis, and significantly worsening renal function. Hypercalcemia, resolved. Chronic anemia. Hypertension. History of hyperlipidemia. History of obstructive sleep apnea syndrome, maintained on home CPAP. Diarrhea, and the patient has a fecal management system in place Plan: Keep the patient sedated for now and the patient is currently on propofol Continue ventilator support Increase tidal volume to 550 Increase the rate to 26 Give the patient 2 doses of sodium bicarb 50 mEq each Start the patient on a bicarb infusion at rate of 100 cc an hour IV fluids are to KVO The patient will need renal replacement therapy and dialysis was discussed with the family and the final decision has not been made yet Unable to wean this patient off the mechanical ventilator especially with his underlying renal failure and severe metabolic acidosis Start the patient empiric antibiotic coverage with IV Zosyn Pressors if needed Nephrology on the case Hematology oncology is on the case Prognosis remains poor based on above-mentioned comorbidities. Will continue to follow make further recommendations based on his progress. Critical care evaluation, 33 minutes. Time with Patient: Greater than 30
--- NOTE | 2024-12-18 15:31 | P.PN ---
Subjective Progress Note Date: 12/18/24 Remains in ICU, ventilated and sedated. Wbc 12.3, hgb 7.0, plt 164. Kidney function worsening, Creatinine 5.67, GFR 9. Nephrology recommended HD, but family unsure how they want to proceed, family meeting held today to discuss goals of care. Objective - Vital Signs Vital signs: Vital Signs Temp 99.6 F 12/18/24 09:00 Pulse 86 12/18/24 12:00 Resp 25 H 12/18/24 12:00 BP 104/53 12/18/24 10:45 Pulse Ox 98 12/18/24 12:00 FiO2 35 12/18/24 11:06 Intake & Output 12/17/24 12/18/24 12/18/24 18:59 06:59 18:59 Intake Total 774.239 682.322 436.594 Output Total 485 1385 585 Balance 289.239 -702.678 -148.406 Weight 82.8 kg 82.8 kg Intake: IV 33 39 15 0.9 pressure bag 33 39 15 Intake, IV Titration 166.239 188.322 286.594 Amount Dextrose 5% in Water 1, 225 000 ml @ 75 mls/hr IV . [id number] [facility] with Sodium Bicarb (1 Meq/ml) 150 ml Rx#:[id number] Norepinephrine 4 mg In 8.465 Sodium Chloride 0.9% 250 ml @ 0.03 MCG/KG/MIN 9. 464 mls/hr IV .Q24H [facility] Rx#:[id number] propofoL 1,000 mg In 166.239 188.322 53.129 Empty Bag 1 bag @ 15 MCG/ KG/MIN 7.614 mls/hr IV . Q13H9M [facility] Rx#:[id number] Tube Feeding 385 455 105 Other 190 30 Output: Urine 485 385 185 Stool 1000 400 Other: Voiding Method Indwelling Catheter Indwelling Catheter ABP, PAP, CO, CI - Last Documented Arterial Blood Pressure 106/36 - Labs CBC & Chem 7: 12/18/24 05:30 12/18/24 12:40 Labs: Abnormal Lab Results - Last 24 Hours (Table) 12/17/24 12/17/24 12/17/24 Range/Units 12:10 13:40 19:36 WBC (3.8-10.6) k/uL RBC (4.30-5.90) m/uL Hgb (13.0-17.5) gm/dL Hct (39.0-53.0) % MCV (80.0-100.0) fL Neutrophils # (1.3-7.7) k/uL Lymphocytes # (1.0-4.8) k/uL Monocytes # (0-1.0) k/uL ABG pH (7.35-7.45) ABG HCO3 (21-25) mmol/L ABG Total CO2 (19-24) mmol/L Hemoglobin (13.0-17.5) gm/dL Potassium 5.8 H (3.5-5.1) mmol/L Carbon Dioxide 16 L (22-30) mmol/L BUN 157 H* (9-20) mg/dL Creatinine 5.13 H (0.66-1.25) mg/dL Glucose 139 H (74-99) mg/dL POC Glucose (mg/dL) 148 H 145 H (70-110) mg/dL 12/17/24 12/18/24 12/18/24 Range/Units 23:51 05:16 05:30 WBC 12.3 H (3.8-10.6) k/uL RBC 2.05 L (4.30-5.90) m/uL Hgb 7.0 L (13.0-17.5) gm/dL Hct 21.9 L (39.0-53.0) % MCV 106.6 H (80.0-100.0) fL Neutrophils # 10.3 H (1.3-7.7) k/uL Lymphocytes # 0.6 L (1.0-4.8) k/uL Monocytes # 1.1 H (0-1.0) k/uL ABG pH 7.19 L* (7.35-7.45) ABG HCO3 17 L (21-25) mmol/L ABG Total CO2 18 L (19-24) mmol/L Hemoglobin 6.8 L* (13.0-17.5) gm/dL Potassium (3.5-5.1) mmol/L Carbon Dioxide (22-30) mmol/L BUN (9-20) mg/dL Creatinine (0.66-1.25) mg/dL Glucose (74-99) mg/dL POC Glucose (mg/dL) 130 H (70-110) mg/dL 12/18/24 12/18/24 12/18/24 Range/Units 05:30 09:02 12:18 WBC (3.8-10.6) k/uL RBC (4.30-5.90) m/uL Hgb (13.0-17.5) gm/dL Hct (39.0-53.0) % MCV (80.0-100.0) fL Neutrophils # (1.3-7.7) k/uL Lymphocytes # (1.0-4.8) k/uL Monocytes # (0-1.0) k/uL ABG pH (7.35-7.45) ABG HCO3 (21-25) mmol/L ABG Total CO2 (19-24) mmol/L Hemoglobin (13.0-17.5) gm/dL Potassium 5.7 H (3.5-5.1) mmol/L Carbon Dioxide 16 L (22-30) mmol/L BUN 191 H* (9-20) mg/dL Creatinine 5.67 H (0.66-1.25) mg/dL Glucose 110 H (74-99) mg/dL POC Glucose (mg/dL) 144 H 149 H (70-110) mg/dL Assessment and Plan (1) Hypercalcemia Current Visit: Yes Status: Acute Priority: High Code(s): E83.52 - HYPERCALCEMIA SNOMED Code(s): 73660160 (2) [place] light chain myeloma Current Visit: Yes Status: Acute Priority: High Code(s): C90.00 - MULTIPLE MYELOMA NOT HAVING ACHIEVED REMISSION SNOMED Code(s): 934942306 (3) New onset atrial fibrillation Current Visit: Yes Status: Acute Code(s): I48.91 - UNSPECIFIED ATRIAL FIBRILLATION SNOMED Code(s): 68908201 Plan: 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 -Completed 7 cycles of RVD in May 2024 achieving very good partial response with 99% reduction in kappa light chain -Had been on maintenance Revlimid 10 mg daily, which he stopped taking September 2024 for unclear reasons, he then developed progressive disease and symptoms of weakness, MICKEY, anemia, and thrombocytopenia -Admitted with failure to thrive with weakness, dehydration -CTA ruled out PE but reported pleural-based nodules with large right sided pleural effusion, peritoneal carcinomatosis, and retroperitoneal lymphadenopathy -720cc Right-sided thoracentesis performed, post procedure pneumo, thoravent placed. -Cytology positive for plasma cell myeloma -Urine kappa/lambda ratio elevated at 60.4, UPEP positive for monoclonal protein. Concern there is multi-organ involvement of his myeloma. Typically myeloma is rather chemo sensitive and can achieve a quick response. Also, pt responded very well to previous regimen. Discussed with family about initiating CyBorD inpatient to try to achieve disease control. They were agreeable to the same -Cycle 1 of CyBorD was initiated on 12/14/2024, received day 4 of Velcade on 12/17/24. -We will continue to monitor his progress clinically while on treatment *It was previously discussed with his sister and niece at bedside that if he does not make clinical improvement with regards to his breathing and kidney function, we would likely need to have goals of care discussion. Family meeting held today. Had detailed discussion regarding, diagnosis, prognosis, and goals of care. Family is unsure at this time, if they want to pursue HD vs comfort care measures, would like more time to think about it, and to discuss with patients spouse. All questions and concerns were addressed. MICKEY: -Kidney function worsening. Considering HD -Uric acid elevated at 17.5. S/p 1 dose Elitek. Uric acid now normal -Appears to be multifactorial, r/t to ATN, multiple myeloma involvement, and possible component of TLS, although TLS is rare with MM -Nephrology following Diarrhea: -C-diff testing negative -Was receiving scheduled Imodium prior to transfer to the ICU Hypercalcemia -Noted to have calcium of 10.5 on admission -Likely multifactorial given dehydration on admission along with relapsed multiple myeloma -Received IV fluids with no significant elevation in his calcium subsequently -For now, we will hold off on bisphosphonate and continue to assess calcium -If he has progressive rise in calcium, bisphosphonate can be given Doctor attests: I performed a history and physical examination of this patient, developed impression and plan of care. Discussed with dictator. I agree with dictators note, documented as a scribe.
--- NOTE | 2024-12-18 18:29 | P.GSCN ---
History of Present Illness History of present illness: 79-year-old gentleman consulted for placement of a dialysis catheter. Patient BUN is 191, creatinine 5.67 potassium 5.7 Patient was seen in intensive care unit patient has been intubated Chest crackles bilateral Assessment her heart sounds are present Abdomen nontender vascular femorals are 2+ bilateral Plan is placement of dialysis catheter right femoral approach risk and complica tion discussed Past Medical History Past Medical History: Cancer, Hyperlipidemia, Hypertension Additional Past Medical History / Comment(s): multiple myeloma History of Any Multi-Drug Resistant Organisms: None Reported Past Surgical History: No Surgical Hx Reported Additional Past Surgical History / Comment(s): Broken arm that required surgery, colon resection Past Anesthesia/Blood Transfusion Reactions: No Reported Reaction Past Psychological History: No Psychological Hx Reported Smoking Status: Never smoker Past Alcohol Use History: None Reported Past Drug Use History: None Reported Medications and Allergies Home Medications Medication Instructions Recorded Confirmed Type Omeprazole 20 mg PO DAILY 11/06/23 12/05/24 History amLODIPine [Norvasc] 5 mg PO DAILY tab 11/13/23 12/05/24 Rx Aspirin 81 mg PO DAILY 03/09/24 12/05/24 History Docusate Sodium 250 mg PO DAILY 03/09/24 12/05/24 History Metoprolol Succinate (ER) [Toprol 25 mg PO DAILY 03/09/24 12/05/24 History Xl] clonazePAM [KlonoPIN] 0.5 mg PO HS 03/09/24 12/05/24 History Acetaminophen Tab [Tylenol Tab] 1,000 mg PO Q6H PRN 12/05/24 12/05/24 History Atorvastatin [Lipitor] 20 mg PO HS 12/05/24 12/05/24 History Calcium Citrate/Vitamin D3 1 tab PO DAILY 12/05/24 12/05/24 History [Calcium Cit 315-Vit D3 6.25 Mcg (250 Iu)] Diphenoxylate HCl/Atropine 1 tab PO QID PRN 12/05/24 12/05/24 History [Lomotil 2.5-0.025 mg Tablet] Loperamide [Imodium] 2 - 4 mg PO QID PRN 12/05/24 12/05/24 History Multivit-Min/FA/Lycopen/Lutein 1 tab PO DAILY 12/05/24 12/05/24 History [Centrum Silver Tablet] Naproxen Sodium [Aleve] 220 mg PO BID PRN 12/05/24 12/05/24 History Allergies Allergy/AdvReac Type Severity Reaction Status Date / Time No Known Allergies Allergy Verified 12/05/24 18:09 Surgical - Exam Vital Signs Temp Pulse Resp BP Pulse Ox 97.4 F L 92 18 146/65 94 L 12/05/24 15:47 12/05/24 15:47 12/05/24 15:47 12/05/24 15:47 12/05/24 15:47 Results - Labs 12/18/24 05:30 12/18/24 12:40 Abnormal Lab Results - Last 24 Hours (Table) 12/17/24 12/17/24 12/18/24 Range/Units 19:36 23:51 05:16 WBC (3.8-10.6) k/uL RBC (4.30-5.90) m/uL Hgb (13.0-17.5) gm/dL Hct (39.0-53.0) % MCV (80.0-100.0) fL Neutrophils # (1.3-7.7) k/uL Lymphocytes # (1.0-4.8) k/uL Monocytes # (0-1.0) k/uL ABG pH 7.19 L* (7.35-7.45) ABG HCO3 17 L (21-25) mmol/L ABG Total CO2 18 L (19-24) mmol/L Hemoglobin 6.8 L* (13.0-17.5) gm/dL Potassium (3.5-5.1) mmol/L Carbon Dioxide (22-30) mmol/L BUN (9-20) mg/dL Creatinine (0.66-1.25) mg/dL Glucose (74-99) mg/dL POC Glucose (mg/dL) 145 H 130 H (70-110) mg/dL 12/18/24 12/18/24 12/18/24 Range/Units 05:30 05:30 09:02 WBC 12.3 H (3.8-10.6) k/uL RBC 2.05 L (4.30-5.90) m/uL Hgb 7.0 L (13.0-17.5) gm/dL Hct 21.9 L (39.0-53.0) % MCV 106.6 H (80.0-100.0) fL Neutrophils # 10.3 H (1.3-7.7) k/uL Lymphocytes # 0.6 L (1.0-4.8) k/uL Monocytes # 1.1 H (0-1.0) k/uL ABG pH (7.35-7.45) ABG HCO3 (21-25) mmol/L ABG Total CO2 (19-24) mmol/L Hemoglobin (13.0-17.5) gm/dL Potassium 5.7 H (3.5-5.1) mmol/L Carbon Dioxide 16 L (22-30) mmol/L BUN 191 H* (9-20) mg/dL Creatinine 5.67 H (0.66-1.25) mg/dL Glucose 110 H (74-99) mg/dL POC Glucose (mg/dL) 144 H (70-110) mg/dL 12/18/24 12/18/24 Range/Units 12:18 12:40 WBC (3.8-10.6) k/uL RBC (4.30-5.90) m/uL Hgb (13.0-17.5) gm/dL Hct (39.0-53.0) % MCV (80.0-100.0) fL Neutrophils # (1.3-7.7) k/uL Lymphocytes # (1.0-4.8) k/uL Monocytes # (0-1.0) k/uL ABG pH (7.35-7.45) ABG HCO3 (21-25) mmol/L ABG Total CO2 (19-24) mmol/L Hemoglobin (13.0-17.5) gm/dL Potassium 5.4 H (3.5-5.1) mmol/L Carbon Dioxide (22-30) mmol/L BUN (9-20) mg/dL Creatinine (0.66-1.25) mg/dL Glucose (74-99) mg/dL POC Glucose (mg/dL) 149 H (70-110) mg/dL Diabetes panel 12/18/24 12/18/24 Range/Units 05:30 12:40 Sodium 139 (137-145) mmol/L Potassium 5.7 H 5.4 H (3.5-5.1) mmol/L Chloride 104 (98-107) mmol/L Carbon Dioxide 16 L (22-30) mmol/L BUN 191 H* (9-20) mg/dL Creatinine 5.67 H (0.66-1.25) mg/dL Glucose 110 H (74-99) mg/dL Calcium 8.7 (8.4-10.2) mg/dL Calcium panel 12/18/24 Range/Units 05:30 Calcium 8.7 (8.4-10.2) mg/dL Pituitary panel 12/18/24 12/18/24 Range/Units 05:30 12:40 Sodium 139 (137-145) mmol/L Potassium 5.7 H 5.4 H (3.5-5.1) mmol/L Chloride 104 (98-107) mmol/L Carbon Dioxide 16 L (22-30) mmol/L BUN 191 H* (9-20) mg/dL Creatinine 5.67 H (0.66-1.25) mg/dL Glucose 110 H (74-99) mg/dL Calcium 8.7 (8.4-10.2) mg/dL Adrenal panel 12/18/24 12/18/24 Range/Units 05:30 12:40 Sodium 139 (137-145) mmol/L Potassium 5.7 H 5.4 H (3.5-5.1) mmol/L Chloride 104 (98-107) mmol/L Carbon Dioxide 16 L (22-30) mmol/L BUN 191 H* (9-20) mg/dL Creatinine 5.67 H (0.66-1.25) mg/dL Glucose 110 H (74-99) mg/dL Calcium 8.7 (8.4-10.2) mg/dL
--- NOTE | 2024-12-18 18:31 | P.PCN ---
Description of Procedure: Preop diagnosis acute chronic renal failure hyperkalemia Procedure right tonsil prepped and draped you sterile manner percent lidocaine for infiltrated right groin area. Sound guided micropuncture introduced right femoral vein micropuncture guide was passed. And sheath was brought of the guidewire. Regular guidewire which was advanced with any difficulty dilator was advanced up the guidewire then we placed 20 cm dialysis catheter on the top of guidewire guidewire was removed flushed with heparin saline and hep-locked secured with a nylon dressing applied patient tarted the procedure well
[2024-12-18] MEDS: LIDOCAINE 1% INJ 10MG/ML (20 ML MDV) SQ ONE (18:35)
[2024-12-19 00:15] LABS: Glucose,Whole Blood 171 mg/dL (70-110)
[2024-12-19 05:54] LABS: ABG Base Excess -4.4 mmol/L; ABG HCO3 20 mmol/L (21-25); ABG Oxygen Saturation 97.8 % (94-97); ABG PCO2 33 mmHg (35-45); ABG PO2 95 mmHg (83-108); ABG TCO2 21 mmol/L (19-24)
[2024-12-19 05:56] LABS: Allen Test Performed? no
[2024-12-19 06:54] LABS: Anion Gap 16 mmol/L; Calcium 8.3 mg/dL (8.4-10.2); Carbon Dioxide 19 mmol/L (22-30); Chloride 108 mmol/L (98-107); Glucose 147 mg/dL (74-99); Potassium 4.9 mmol/L (3.5-5.1); Sodium 143 mmol/L (137-145)
[2024-12-19 07:01] LABS: African American GFR (CKD) 13 (>60 ml/min/1.73 sqM); Non-African American GFR(CKD) 11 (>60 ml/min/1.73 sqM)
[2024-12-19 07:09] LABS: Blood Urea Nitrogen 203 mg/dL (9-20)
[2024-12-19 07:17] LABS: Basophils % (A) 1 %; Eosinophils % (A) 0 %; Lymphocytes # (A) 0.3 k/uL (1.0-4.8); Lymphocytes % (A) 5 %; MCHC 32.4 g/dL (31.0-37.0); MCV 104.9 fL (80.0-100.0); Macrocytosis Moderate; Mean Platelet Volume 10.2; Monocytes # (A) 0.5 k/uL (0-1.0); Monocytes % (A) 8 %; Neutrophils # (A) 5.9 k/uL (1.3-7.7); Neutrophils % (A) 85 %; RBC 1.74 m/uL (4.30-5.90); RDW 15.1 % (11.5-15.5); WBC 6.9 k/uL (3.8-10.6)
[2024-12-19 07:25] LABS: HCT 18.3 % (39.0-53.0); HGB 5.9 gm/dL (13.0-17.5); Platelet Count 135 k/uL (150-450)
--- NOTE | 2024-12-19 08:08 | XR ---
EXAMINATION TYPE: XR chest 1V portable DATE OF EXAM: 12/19/2024 5:20 AM COMPARISON: Chest radiograph from one day prior. CLINICAL INDICATION: Male, 79 years old with history of assess lungs; [facility] TECHNIQUE: XR chest 1V portable Frontal view of the chest. FINDINGS: FINDINGS: Prominent skinfold folds throughout the left thorax lung markings are seen beyond this. Lungs/Pleura: Blunting of the right costophrenic angle. There is no evidence of left pleural effusio n, focal consolidation, or pneumothorax Pulmonary vascularity: Unremarkable. Heart/mediastinum: Cardiomediastinal silhouette is unremarkable. Musculoskeletal: No acute osseous pathology. Other findings: None Lines/Tubes: Endotracheal tube with distal tip 6.9 cm above the cleve. Nasogastric tube with its distal tip and side-port projecting under the diaphragm. IMPRESSION: 1. Layering right pleural effusion. 2. Endotracheal tube in satisfactory position. [facility], , 12/19/2024 8:05 AM
[2024-12-19] MEDS: PANTOPRAZOLE 40 MG/10 ML VIAL IVP SCH (09:28)
[2024-12-19 11:21] LABS: Glucose,Whole Blood 154 mg/dL (70-110)
--- NOTE | 2024-12-19 11:27 | P.PN ---
Subjective Patient is seen for follow-up for acute kidney injury. Patient is intubated, FiO2 at 35%. Family has decided to proceed with aggressive care including dialysis. Vascular surgery was consulted yesterday and dialysis catheter has been placed. Patient will be dialyzed today. Urine output increased to 100 to 125 cc/h Patient remains on bicarb drip Sedation has been weaned off and Levophed is almost off now. Objective - Vital Signs Vital signs: Vital Signs Temp 100.9 F H 12/19/24 10:28 Pulse 108 H 12/19/24 11:15 Resp 26 H 12/19/24 10:28 BP 123/46 12/19/24 10:28 Pulse Ox 97 12/19/24 10:28 FiO2 35 12/19/24 11:06 Intake & Output 12/18/24 12/19/24 12/19/24 18:59 06:59 18:59 Intake Total 1550.268 904.655 966.634 Output Total 1250 1170 545 Balance 300.268 -265.345 421.634 Weight 82.8 kg 83.2 kg Intake: IV 36 33 12 0.9 pressure bag 36 33 12 Intake, IV Titration 984.268 376.655 504.634 Amount Dextrose 5% in Water 1, 750 300 225 000 ml @ 75 mls/hr IV . [id number] VIKY with Sodium Bicarb (1 Meq/ml) 150 ml Rx#:[id number] Norepinephrine 4 mg In 135.963 6.099 112.885 Sodium Chloride 0.9% 250 ml @ 0.03 MCG/KG/MIN 9. 464 mls/hr IV .Q24H VIKY Rx#:[id number] Piperacillin-Tazobactam 3 100 .375 gm In Sodium Chloride 0.9% 100 ml @ 25 mls/hr IVPB Q12H VIKY Rx# :[id number] propofoL 1,000 mg In 98.305 70.556 66.749 Empty Bag 1 bag @ 15 MCG/ KG/MIN 7.614 mls/hr IV . Q13H9M VIKY Rx#:[id number] Tube Feeding 440 495 135 Blood Product 285 Rc As-1 Unit 0 [id number] Rc Pheresis 2 As3 Unit 285 [id number] Other 90 30 Output: Urine 850 570 545 Stool 400 Urine/Stool Mix 600 Other: Voiding Method Indwelling Catheter Indwelling Catheter ABP, PAP, CO, CI - Last Documented Arterial Blood Pressure 123/43 - Exam Patient is intubated and on the vent Examination of the heart S1 and S2 Examination of the lungs bilateral breath sounds are heard Abdomen is soft nontender Examination of lower extremities shows no significant edema - Labs CBC & Chem 7: 12/19/24 06:00 12/19/24 06:00 Labs: Abnormal Lab Results - Last 24 Hours (Table) 12/18/24 12/18/24 12/19/24 Range/Units 12:18 12:40 00:14 RBC (4.30-5.90) m/uL Hgb (13.0-17.5) gm/dL Hct (39.0-53.0) % MCV (80.0-100.0) fL Plt Count (150-450) k/uL Lymphocytes # (1.0-4.8) k/uL ABG pCO2 (35-45) mmHg ABG HCO3 (21-25) mmol/L ABG O2 Saturation (94-97) % Hemoglobin (13.0-17.5) gm/dL Potassium 5.4 H (3.5-5.1) mmol/L Chloride (98-107) mmol/L Carbon Dioxide (22-30) mmol/L BUN (9-20) mg/dL Creatinine (0.66-1.25) mg/dL Glucose (74-99) mg/dL POC Glucose (mg/dL) 149 H 171 H (70-110) mg/dL Calcium (8.4-10.2) mg/dL Procalcitonin (0.02-0.50) ng/mL Crossmatch 12/19/24 12/19/24 12/19/24 Range/Units 05:51 06:00 06:00 RBC (4.30-5.90) m/uL Hgb (13.0-17.5) gm/dL Hct (39.0-53.0) % MCV (80.0-100.0) fL Plt Count (150-450) k/uL Lymphocytes # (1.0-4.8) k/uL ABG pCO2 33 L (35-45) mmHg ABG HCO3 20 L (21-25) mmol/L ABG O2 Saturation 97.8 H (94-97) % Hemoglobin 5.9 L* (13.0-17.5) gm/dL Potassium (3.5-5.1) mmol/L Chloride 108 H (98-107) mmol/L Carbon Dioxide 19 L (22-30) mmol/L BUN 203 H* (9-20) mg/dL Creatinine 4.54 H (0.66-1.25) mg/dL Glucose 147 H (74-99) mg/dL POC Glucose (mg/dL) (70-110) mg/dL Calcium 8.3 L (8.4-10.2) mg/dL Procalcitonin 0.67 H (0.02-0.50) ng/mL Crossmatch 12/19/24 12/19/24 12/19/24 Range/Units 06:00 06:00 11:20 RBC 1.74 L (4.30-5.90) m/uL Hgb 5.9 L* (13.0-17.5) gm/dL Hct 18.3 L* (39.0-53.0) % MCV 104.9 H (80.0-100.0) fL Plt Count 135 L (150-450) k/uL Lymphocytes # 0.3 L (1.0-4.8) k/uL ABG pCO2 (35-45) mmHg ABG HCO3 (21-25) mmol/L ABG O2 Saturation (94-97) % Hemoglobin (13.0-17.5) gm/dL Potassium (3.5-5.1) mmol/L Chloride (98-107) mmol/L Carbon Dioxide (22-30) mmol/L BUN (9-20) mg/dL Creatinine (0.66-1.25) mg/dL Glucose (74-99) mg/dL POC Glucose (mg/dL) 154 H (70-110) mg/dL Calcium (8.4-10.2) mg/dL Procalcitonin (0.02-0.50) ng/mL Crossmatch See Detail Assessment and Plan Assessment: 1. Acute kidney injury most likely ATN currently nonoliguric, UA is benign ultrasound does not show any evidence of obstruction. Serum creatinine 1.4 on admission and 0.8 on 07/27/2024. Renal function seems to be improving with a decrease in creatinine however BUN is significantly elevated at 203. Patient will need at least 1-2 treatments of hemodialysis. We will proceed with first treatment today. 2. Right pleural effusion status post thoracentesis with development of pneumothorax status post Thora vent with resolution of pneumothorax 3. Anemia with no active bleeding noted. Underlying history of multiple myeloma 4. Multiple myeloma being followed by Dr. Aden. Maintained on chemotherapy 5. Hypercalcemia on initial admission possibly related to hypovolemia, now improved to 9.4. Patient has had significant hypercalcemia previously most likely related to multiple myeloma in October 2023 6. Anion gap metabolic acidosis secondary to acute kidney injury and 7. Hyperkalemia associated with acute kidney injury Plan: Hemodialysis today Repeat labs this evening and DC bicarb drip based on labs. Repeat hemodialysis in a.m. and continue to monitor for recovery of renal function.
[2024-12-19 12:10] LABS: Hepatitis B Surface AB- Quant 3.5 mIU/mL
--- NOTE | 2024-12-19 12:45 | P.PN ---
Subjective Progress Note Date: 12/19/24 Will continue to follow 12/18/2024 the patient is being seen for a follow-up. The patient remains intubated on mechanical ventilator. This morning, the patient on propofol running at 20 mcg/kg/min. The patient remains on assist- control mode mechanical ventilation and the patient is on a rate of 20, tidal volume of 450, FiO2 of 35% with a PEEP of 5. Blood gas showed a pH of 7.19 with a pCO2 of 43 and pO2 of 95. Chest x-ray is essentially unchanged. There is no evidence of any pneumothorax. There is a large right-sided pleural effusion and no evidence of any left-sided pleural effusion. ET tube is in a good location. The patient is producing urine output in the order of 30 to 40 cc an hour. The cardiac rhythm In the sinus. The patient did has a fecal management system in place and the patient has produced a total of 100 cc of stool every 2 hours, a total of 1 L over the past 24 hours. Stool for C. difficile has been negative. He continues to receive enteral feeding for nutritional support and the patient is on a vital high-protein at 20 to 35 cc an hour. The white cell count is at 1.3 with a hemoglobin of 7 and a platelet count of 164. Potassium level is at 5.7. BUN is 191 and the creatinine is at 5.6 and a sodium levels of 139 and potassium level is at 5.7. Nephrology on the case. Renal replacement therapy was discussed with the family and at this point they have not made the decision. The patient was started on a bicarb infusion. Afebrile. Hemodynamically stabl e. Remains on Velcade. Remains on cyclophosphamide. Remains on Decadron regarding multiple myeloma. 12/19/2024, patient is being seen in follow-up. Remains intubated on mechanical ventilator. On today's evaluation, the patient is on propofol running at 50 mcg/kg/min. Remains on control mode of mechanical ventilation at rate of 26, tidal volume of 550, FiO2 35% with a PEEP of 5. Blood gas showed a pH of 7.4 with a pCO2 33 and pO2 of 95. The patient had a follow-up chest x-ray shows a moderate to large right-sided pleural effusion, essentially stable in the ED to be seen in the location. The patient remains on a bicarb infusion at rate of 35 cc an hour. He did have some borderline hypotension yesterday and the patient is currently on norepinephrine at 0.02 mcg/kg/min. Urine output is in order of 50 cc an hour. He has fecal management system in place and the patient continues to have diarrhea with a total of 1 L of stool over the past 24 hours. At the same time, he has coffee-ground residual in the stomach. He received enteral feeding with vital HP at rate of 45 cc an hour. His cardiac rhythm is sinus and the patient has some sinus tachycardia. There is also a drop in hemoglobin down to 5.5. The white cell count is 6.8. Platelet count is at 135. BUN is 203, creatinine is 4.5, sodium is at 143 with a potassium level of 4.9. Procalcitonin level is at 0.67. The patient was given a hemodialysis catheter yesterday. Objective - Vital Signs Vital signs: Vital Signs Temp 100 F H 12/19/24 04:00 Pulse 104 H 12/19/24 07:44 Resp 26 H 12/19/24 07:00 BP 93/50 12/19/24 07:00 Pulse Ox 98 12/19/24 07:00 FiO2 35 12/19/24 07:29 Intake & Output 12/18/24 12/19/24 12/19/24 18:59 06:59 18:59 Intake Total 1550.268 904.655 48 Output Total 1250 1170 70 Balance 300.268 -265.345 -22 Weight 82.8 kg 83.2 kg Intake: IV 36 33 3 0.9 pressure bag 36 33 3 Intake, IV Titration 984.268 376.655 Amount Dextrose 5% in Water 1, 750 300 000 ml @ 75 mls/hr IV . [id number] VIKY with Sodium Bicarb (1 Meq/ml) 150 ml Rx#:[id number] Norepinephrine 4 mg In 135.963 6.099 Sodium Chloride 0.9% 250 ml @ 0.03 MCG/KG/MIN 9. 464 mls/hr IV .Q24H VIKY Rx#:[id number] propofoL 1,000 mg In 98.305 70.556 Empty Bag 1 bag @ 15 MCG/ KG/MIN 7.614 mls/hr IV . Q13H9M VIKY Rx#:[id number] Tube Feeding 440 495 45 Other 90 Output: Urine 850 570 70 Stool 400 Urine/Stool Mix 600 Other: Voiding Method Indwelling Catheter Indwelling Catheter ABP, PAP, CO, CI - Last Documented Arterial Blood Pressure 111/39 - Exam The patient appeared well nourished and normally developed. Vital signs as documented. The patient remains intubated on mechanical ventilator. The patient is sedated with propofol. Head exam is unremarkable. No scleral icterus or corneal arcus noted. Neck is without jugular venous distension, thyromegaly, or carotid bruits. Carotid upstrokes are brisk bilaterally. Orogastric and orotracheal tube are both in place. Lungs irregular breathing and diminished breath sound right compared to the left related to pleural effusion. Cardiac exam reveals the PMI to be normally sized and situated. Rhythm is regular. First and second heart sounds normal. No murmurs, rubs or gallops. Abdominal exam reveals normal bowel sounds, no masses, no organomegaly and no aortic enlargement. Extremities are edematous and both femoral and pedal pulses are normal. The pulses in general are diminished and the extremities are edematous. Examination of the skin revealed no evidence of significant rashes, suspicious appearing nevi or other concerning lesions. Neurologically, the patient is sedated, unable to communicate , Withdraws only to deep painful stimulation. - Labs CBC & Chem 7: 12/19/24 06:00 12/19/24 06:00 Labs: Abnormal Lab Results - Last 24 Hours (Table) 12/18/24 12/18/24 12/18/24 Range/Units 09:02 12:18 12:40 RBC (4.30-5.90) m/uL Hgb (13.0-17.5) gm/dL Hct (39.0-53.0) % MCV (80.0-100.0) fL Plt Count (150-450) k/uL Lymphocytes # (1.0-4.8) k/uL ABG pCO2 (35-45) mmHg ABG HCO3 (21-25) mmol/L ABG O2 Saturation (94-97) % Hemoglobin (13.0-17.5) gm/dL Potassium 5.4 H (3.5-5.1) mmol/L Chloride (98-107) mmol/L Carbon Dioxide (22-30) mmol/L BUN (9-20) mg/dL Creatinine (0.66-1.25) mg/dL Glucose (74-99) mg/dL POC Glucose (mg/dL) 144 H 149 H (70-110) mg/dL Calcium (8.4-10.2) mg/dL Crossmatch 12/19/24 12/19/24 12/19/24 Range/Units 00:14 05:51 06:00 RBC (4.30-5.90) m/uL Hgb (13.0-17.5) gm/dL Hct (39.0-53.0) % MCV (80.0-100.0) fL Plt Count (150-450) k/uL Lymphocytes # (1.0-4.8) k/uL ABG pCO2 33 L (35-45) mmHg ABG HCO3 20 L (21-25) mmol/L ABG O2 Saturation 97.8 H (94-97) % Hemoglobin 5.9 L* (13.0-17.5) gm/dL Potassium (3.5-5.1) mmol/L Chloride 108 H (98-107) mmol/L Carbon Dioxide 19 L (22-30) mmol/L BUN 203 H* (9-20) mg/dL Creatinine 4.54 H (0.66-1.25) mg/dL Glucose 147 H (74-99) mg/dL POC Glucose (mg/dL) 171 H (70-110) mg/dL Calcium 8.3 L (8.4-10.2) mg/dL Crossmatch 12/19/24 12/19/24 Range/Units 06:00 06:00 RBC 1.74 L (4.30-5.90) m/uL Hgb 5.9 L* (13.0-17.5) gm/dL Hct 18.3 L* (39.0-53.0) % MCV 104.9 H (80.0-100.0) fL Plt Count 135 L (150-450) k/uL Lymphocytes # 0.3 L (1.0-4.8) k/uL ABG pCO2 (35-45) mmHg ABG HCO3 (21-25) mmol/L ABG O2 Saturation (94-97) % Hemoglobin (13.0-17.5) gm/dL Potassium (3.5-5.1) mmol/L Chloride (98-107) mmol/L Carbon Dioxide (22-30) mmol/L BUN (9-20) mg/dL Creatinine (0.66-1.25) mg/dL Glucose (74-99) mg/dL POC Glucose (mg/dL) (70-110) mg/dL Calcium (8.4-10.2) mg/dL Crossmatch See Detail Assessment and Plan Plan: Acute hypoxemic and hypercapnic respiratory failure, multifactorial, requiring intubation, and mechanical ventilation, on December 12, 2024. The patient has a large right-sided pleural effusion. Oxygenation is stable while being on mechanical ventilator. Chest x-ray remains unchanged on today's evaluation. No evidence of any pneumothorax. Improvement in acid-base status on today's blood work. S/P right sided thoracentesis, with a right-sided iatrogenic pneumothorax, recovered. Pleural fluid was exudative and there is reaccumulation of the right-sided pleural effusion S/P right Thora vent placement, with removal on December 12, 2024. Multiple myeloma, relapsed high 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, the patient completed 7 cycles of RVD in May 2024 achieving very good partial response with 99% reduction in kappa light chain. The patient has been on maintenance Revlimid 10 mg daily, which he stopped taking September 2024 for unclear reasons, and the patient is currently on Revlimid, Cytoxan and Decadron. Anion gap metabolic acidosis, secondary to renal failure, improved with bicarb infusion Hyperkalemia, improved Acute on chronic anemia with questionable upper GI source of bleeding as the patient has some coffee-ground gastric material. Tumor lysis syndrome, improved Acute kidney injury with bilateral hydronephrosis, and significantly worsening renal function. Hypercalcemia, resolved. Chronic anemia. Hypertension. History of hyperlipidemia. History of obstructive sleep apnea syndrome, maintained on home CPAP. Diarrhea, and the patient has a fecal management system in place Plan: Give the patient a sedation holiday Continue ventilator support, no vent changes for today Continue the bicarb infusion repeat labs in the afternoon and decide accordingly Dialysis catheter has been inserted and the patient will receive dialysis today Titrate norepinephrine and patient is currently on a low-dose Continue empiric antibiotic coverage with IV Zosyn Transfused with a unit of packed RBC Discontinue Pepcid and put the patient on IV Protonix 40 mg every 24 hours Hold tube feeds for now and watch for any signs of GI bleeding and monitor the hemoglobin Nephrology on the case Hematology oncology is on the case Prognosis remains poor based on above-mentioned comorbidities. Will continue to follow make further recommendations based on his progress. Critical care evaluation, 33 minutes. Time with Patient: Greater than 30
[2024-12-19 13:14] LABS: Glucose,Whole Blood 166 mg/dL (70-110)
[2024-12-19 13:32] LABS: Anisocytosis Slight; Basophils % (A) 0 %; Eosinophils % (A) 0 %; HCT 20.2 % (39.0-53.0); Lymphocytes # (A) 0.4 k/uL (1.0-4.8); Lymphocytes % (A) 5 %; MCH 33.1 pg (25.0-35.0); MCHC 33.7 g/dL (31.0-37.0); Macrocytosis Slight; Mean Platelet Volume 10.7; Monocytes # (A) 0.6 k/uL (0-1.0); Monocytes % (A) 7 %; Neutrophils # (A) 6.7 k/uL (1.3-7.7); Neutrophils % (A) 85 %; Platelet Count 124 k/uL (150-450); RBC 2.06 m/uL (4.30-5.90); RDW 17.5 % (11.5-15.5); WBC 7.8 k/uL (3.8-10.6)
[2024-12-19 13:34] LABS: HGB 6.8 gm/dL (13.0-17.5); MCV 98.4 fL (80.0-100.0)
[2024-12-19 16:00] LABS: Hepatitis B Surface Antigen Nonreactive (Nonreactive)
--- NOTE | 2024-12-19 17:28 | P.PN ---
Subjective Progress Note Date: 12/19/24 Remains in ICU, ventilated and sedated. Wbc 6.9, hgb 5.9, plt 135. 2 units PRBCs ordered. HD has been started, creatinine 4.54, GFR 11. Fever 100.4. BC ordered. Zosyn started Objective - Vital Signs Vital signs: Vital Signs Temp 100.9 F H 12/19/24 10:28 Pulse 108 H 12/19/24 11:15 Resp 26 H 12/19/24 10:28 BP 123/46 12/19/24 10:28 Pulse Ox 97 12/19/24 10:28 FiO2 35 12/19/24 11:06 Intake & Output 12/18/24 12/19/24 12/19/24 18:59 06:59 18:59 Intake Total 1550.268 904.655 966.634 Output Total 1250 1170 545 Balance 300.268 -265.345 421.634 Weight 82.8 kg 83.2 kg Intake: IV 36 33 12 0.9 pressure bag 36 33 12 Intake, IV Titration 984.268 376.655 504.634 Amount Dextrose 5% in Water 1, 750 300 225 000 ml @ 75 mls/hr IV . [id number] with Sodium Bicarb (1 Meq/ml) 150 ml Rx#:[id number] Norepinephrine 4 mg In 135.963 6.099 112.885 Sodium Chloride 0.9% 250 ml @ 0.03 MCG/KG/MIN 9. 464 mls/hr IV .Q24H VIKY Rx#:[id number] Piperacillin-Tazobactam 3 100 .375 gm In Sodium Chloride 0.9% 100 ml @ 25 mls/hr IVPB Q12H VIKY Rx# :[id number] propofoL 1,000 mg In 98.305 70.556 66.749 Empty Bag 1 bag @ 15 MCG/ KG/MIN 7.614 mls/hr IV . Q13H9M VIKY Rx#:[id number] Tube Feeding 440 495 135 Blood Product 285 Rc As-1 Unit 0 [id number] Rc Pheresis 2 As3 Unit 285 [id number] Other 90 30 Output: Urine 850 570 545 Stool 400 Urine/Stool Mix 600 Other: Voiding Method Indwelling Catheter Indwelling Catheter ABP, PAP, CO, CI - Last Documented Arterial Blood Pressure 123/43 - Constitutional General appearance: Present: no acute distress - Respiratory Details: ventilated breath sounds - Cardiovascular Details: skin warm and dry - Integumentary Integumentary: Absent: cyanotic - Neurologic Neurologic Comment(s): sedated - Labs CBC & Chem 7: 12/19/24 13:12 12/19/24 06:00 Labs: Abnormal Lab Results - Last 24 Hours (Table) 12/18/24 12/18/24 12/19/24 Range/Units 12:18 12:40 00:14 RBC (4.30-5.90) m/uL Hgb (13.0-17.5) gm/dL Hct (39.0-53.0) % MCV (80.0-100.0) fL Plt Count (150-450) k/uL Lymphocytes # (1.0-4.8) k/uL ABG pCO2 (35-45) mmHg ABG HCO3 (21-25) mmol/L ABG O2 Saturation (94-97) % Hemoglobin (13.0-17.5) gm/dL Potassium 5.4 H (3.5-5.1) mmol/L Chloride (98-107) mmol/L Carbon Dioxide (22-30) mmol/L BUN (9-20) mg/dL Creatinine (0.66-1.25) mg/dL Glucose (74-99) mg/dL POC Glucose (mg/dL) 149 H 171 H (70-110) mg/dL Calcium (8.4-10.2) mg/dL Procalcitonin (0.02-0.50) ng/mL Crossmatch 12/19/24 12/19/24 12/19/24 Range/Units 05:51 06:00 06:00 RBC (4.30-5.90) m/uL Hgb (13.0-17.5) gm/dL Hct (39.0-53.0) % MCV (80.0-100.0) fL Plt Count (150-450) k/uL Lymphocytes # (1.0-4.8) k/uL ABG pCO2 33 L (35-45) mmHg ABG HCO3 20 L (21-25) mmol/L ABG O2 Saturation 97.8 H (94-97) % Hemoglobin 5.9 L* (13.0-17.5) gm/dL Potassium (3.5-5.1) mmol/L Chloride 108 H (98-107) mmol/L Carbon Dioxide 19 L (22-30) mmol/L BUN 203 H* (9-20) mg/dL Creatinine 4.54 H (0.66-1.25) mg/dL Glucose 147 H (74-99) mg/dL POC Glucose (mg/dL) (70-110) mg/dL Calcium 8.3 L (8.4-10.2) mg/dL Procalcitonin 0.67 H (0.02-0.50) ng/mL Crossmatch 12/19/24 12/19/24 12/19/24 Range/Units 06:00 06:00 11:20 RBC 1.74 L (4.30-5.90) m/uL Hgb 5.9 L* (13.0-17.5) gm/dL Hct 18.3 L* (39.0-53.0) % MCV 104.9 H (80.0-100.0) fL Plt Count 135 L (150-450) k/uL Lymphocytes # 0.3 L (1.0-4.8) k/uL ABG pCO2 (35-45) mmHg ABG HCO3 (21-25) mmol/L ABG O2 Saturation (94-97) % Hemoglobin (13.0-17.5) gm/dL Potassium (3.5-5.1) mmol/L Chloride (98-107) mmol/L Carbon Dioxide (22-30) mmol/L BUN (9-20) mg/dL Creatinine (0.66-1.25) mg/dL Glucose (74-99) mg/dL POC Glucose (mg/dL) 154 H (70-110) mg/dL Calcium (8.4-10.2) mg/dL Procalcitonin (0.02-0.50) ng/mL Crossmatch See Detail Assessment and Plan (1) Hypercalcemia Current Visit: Yes Status: Acute Priority: High Code(s): E83.52 - HYPERCALCEMIA SNOMED Code(s): 61669385 (2) [place] light chain myeloma Current Visit: Yes Status: Acute Priority: High Code(s): C90.00 - MULTIPLE MYELOMA NOT HAVING ACHIEVED REMISSION SNOMED Code(s): 095737562 (3) New onset atrial fibrillation Current Visit: Yes Status: Acute Code(s): I48.91 - UNSPECIFIED ATRIAL FIBRILLATION SNOMED Code(s): 53210391 Plan: 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 -Completed 7 cycles of RVD in May 2024 achieving very good partial response with 99% reduction in kappa light chain -Had been on maintenance Revlimid 10 mg daily, which he stopped taking September 2024 for unclear reasons, he then developed progressive disease and symptoms of weakness, MICKEY, anemia, and thrombocytopenia -Admitted with failure to thrive with weakness, dehydration -CTA ruled out PE but reported pleural-based nodules with large right sided pleural effusion, peritoneal carcinomatosis, and retroperitoneal lymphadenopathy -720cc Right-sided thoracentesis performed, post procedure pneumo, thoravent placed. -Cytology positive for plasma cell myeloma -Urine kappa/lambda ratio elevated at 60.4, UPEP positive for monoclonal protein. Concern there is multi-organ involvement of his myeloma. Typically myeloma is rather chemo sensitive and can achieve a quick response. Also, pt responded very well to previous regimen. Discussed with family about initiating CyBorD inpatient to try to achieve disease control. They were agreeable to the same -Cycle 1 of CyBorD was initiated on 12/14/2024, received day 4 of Velcade on 11/20 . -IgG on 11/23 was 654. Will repeat immunoglobulins, IVIG will be given if hypogammaglobulinemia noted -We will continue to monitor course of hospitalization *It was previously discussed with his sister and niece at bedside that if he does not make clinical improvement with regards to his breathing and kidney function, we would likely need to have goals of care discussion. Family meeting was held. Had detailed discussion regarding, diagnosis, prognosis, and goals of care. Family as unsure if they wanted to pursue HD vs comfort care measures, would like more time to think about it, and to discuss with patients spouse. All questions and concerns were addressed. Since, family has decided to proceed with HD MICKEY: -Kidney function has been declining -Uric acid elevated at 17.5. S/p 1 dose Elitek. Uric acid now normal -Appears to be multifactorial, r/t to ATN, multiple myeloma involvement, and possible component of TLS, although TLS is rare with MM -HD has been started -Nephrology following Hypercalcemia -Noted to have calcium of 10.5 on admission -Likely multifactorial given dehydration on admission along with relapsed multiple myeloma -Received IV fluids with no significant elevation in his calcium subsequently -For now, we will hold off on bisphosphonate and continue to assess calcium -If he has progressive rise in calcium, bisphosphonate can be given Doctor attests: I performed a history and physical examination of this patient, developed impression and plan of care. Discussed with dictator. I agree with dictators note, documented as a scribe.
[2024-12-19 17:48] LABS: Glucose,Whole Blood 172 mg/dL (70-110)
[2024-12-19 18:00] LABS: Anisocytosis Slight; Basophils % (A) 0 %; Eosinophils % (A) 0 %; HCT 24.4 % (39.0-53.0); HGB 8.1 gm/dL (13.0-17.5); Lymphocytes # (A) 0.4 k/uL (1.0-4.8); Lymphocytes % (A) 4 %; MCH 31.8 pg (25.0-35.0); MCV 96.5 fL (80.0-100.0); Macrocytosis Slight; Mean Platelet Volume 10.9; Monocytes # (A) 0.7 k/uL (0-1.0); Monocytes % (A) 6 %; Neutrophils # (A) 9.9 k/uL (1.3-7.7); Neutrophils % (A) 89 %; Platelet Count 108 k/uL (150-450); RBC 2.53 m/uL (4.30-5.90); RDW 18.1 % (11.5-15.5); WBC 11.1 k/uL (3.8-10.6)
[2024-12-19 19:00] LABS: Anion Gap 12 mmol/L; Calcium 8.3 mg/dL (8.4-10.2); Carbon Dioxide 25 mmol/L (22-30); Chloride 102 mmol/L (98-107); Glucose 155 mg/dL (74-99); Potassium 4.3 mmol/L (3.5-5.1); Sodium 139 mmol/L (137-145)
[2024-12-19 19:06] LABS: African American GFR (CKD) 22 (>60 ml/min/1.73 sqM); Non-African American GFR(CKD) 19 (>60 ml/min/1.73 sqM)
[2024-12-19 20:26] LABS: Glucose,Whole Blood 163 mg/dL (70-110)
[2024-12-19 20:34] LABS: Blood Urea Nitrogen 139 mg/dL (9-20)
[2024-12-19] MEDS: SODIUM CHLORIDE 0.9% 1,000 ML IV SCH (21:41)
[2024-12-20] LABS: Glucose,Whole Blood 147 mg/dL (70-110)
[2024-12-20] MEDS: INSULIN LISPRO (HumaLOG) 100 UNIT/ML 10 mL VL SQ SCH (01:10)
[2024-12-20 03:32] LABS: Immunoglobulin M <35.0 mg/dL (40.0-280.0)
[2024-12-20 04:14] LABS: ABG HCO3 23 mmol/L (21-25); ABG Oxygen Saturation 98.5 % (94-97); ABG PCO2 31 mmHg (35-45); ABG PH 7.48 (7.35-7.45); ABG PO2 105 mmHg (83-108); ABG TCO2 24 mmol/L (19-24); Allen Test Performed? Yes
[2024-12-20 05:13] LABS: Glucose,Whole Blood 148 mg/dL (70-110)
[2024-12-20 05:30] LABS: Anisocytosis Slight; Basophils % (A) 0 %; Eosinophils % (A) 0 %; HCT 22.9 % (39.0-53.0); HGB 7.8 gm/dL (13.0-17.5); Lymphocytes # (A) 0.6 k/uL (1.0-4.8); Lymphocytes % (A) 5 %; MCH 32.7 pg (25.0-35.0); MCHC 33.9 g/dL (31.0-37.0); MCV 96.5 fL (80.0-100.0); Macrocytosis Slight; Mean Platelet Volume 11.1; Monocytes # (A) 0.7 k/uL (0-1.0); Monocytes % (A) 6 %; Neutrophils # (A) 10.1 k/uL (1.3-7.7); Neutrophils % (A) 87 %; Platelet Count 107 k/uL (150-450); RBC 2.37 m/uL (4.30-5.90); RDW 17.5 % (11.5-15.5); WBC 11.6 k/uL (3.8-10.6)
[2024-12-20 05:38] LABS: Anion Gap 12 mmol/L; Calcium 8.5 mg/dL (8.4-10.2); Carbon Dioxide 23 mmol/L (22-30); Chloride 105 mmol/L (98-107); Glucose 125 mg/dL (74-99); Magnesium 2.2 mg/dL (1.6-2.3); Potassium 4.4 mmol/L (3.5-5.1); Sodium 140 mmol/L (137-145)
[2024-12-20 05:44] LABS: African American GFR (CKD) 23 (>60 ml/min/1.73 sqM); Non-African American GFR(CKD) 20 (>60 ml/min/1.73 sqM)
[2024-12-20 05:55] LABS: Blood Urea Nitrogen 144 mg/dL (9-20)
--- NOTE | 2024-12-20 06:20 | P.PN ---
Subjective Progress Note Date: 12/19/24 patient is 79-year-old gentleman with past medical history significant for multiple myeloma, hypertension, hyperlipidemia presented to the ER because of abnormal labs. Patient normally sees Dr. Broderick and was on systemic treatment which apparently had stopped taking. Patient had blood work drawn outpatient and was told by the wallpaper remover steam to come to the ER. Patient states over the last couple of days he has been having increasing shortness of breath. Shortness of breath was present at rest as on exertion. Patient was complaining of being lethargic and weakness. Patient also complaining of productive cough with occasional episodes of hemoptysis. Denies any chest pain. There is no complaint of fever or chills. There is no complaint of orthopnea or PND. Patient denies any nausea, vomiting, pain. Patient denies any lightheaded or dizziness. Initial lab work done in the ER showed WBC 3.8, hemoglobin 9, platelet count 134 sodium 142, potassium 4, BUN 40, creatinine 1.40 glucose 103, lactate 1.2, calcium 10.5, magnesium 1.4 bilirubin 0.7, AST 27, ALT 11, troponin 0.018, proBNP 1550 Influenza A not detected Influenza B not detected RSV not detected COVID-19 not detected EKG done in the ER showed heart rate of , no ST segment elevation or depression seen, no T-wave inversions seen. Chest x-ray done in the ER showed patchy infiltrative opacity throughout the right lung with small to moderate size right pleural effusion. Questionable air-fluid level versus overlying skinfold is indeterminate for cavitary lesion or abscess. Recommend CT chest for further evaluation, consolidation in the left lung apex CT chest PE protocol done showed no definite acute PE within the vasculature, significant progression of metastatic disease with numerous pleural-based metastatic deposits and involvement of the left-sided ribs additionally there is peritoneal carcinomatosis in the partially visualized upper abdomen. Patient admitted to internal medicine service 12/07. Patient seen and examined. Status post right-sided thoracentesis with removal of 720 cc of fluid. Blood work done today showed WBC 4.9, hemoglobin 8.8, platelet count 138, sodium 143, potassium 4.1, BUN 33, creatinine 1.74, calcium 9.7 Patient had right-sided Thora vent placed this morning. Currently on 4 L of oxy gen. 12/08. Patient seen and examined. Vital signs done this morning showedTemp 98, heart rate 98, respirations 30, blood pressure 125/84, currently on 2 L of oxygen. Denies any shortness of breath at rest. Currently has a Thora vent in place. Chest x-ray done this morning shows right-sided pleural effusion, right- sided chest tube in place with residual pneumothorax. 12/09. Old male patient currently sleeping, he was agitated and restless overnight and he was prescribed Seroquel 25 mg which made him calm He still tachypneic with a breathing rate around 28, he is saturating high 90s on 3 L oxygen via nasal cannula Hemoglobin slightly trending down to 7.7 and creatinine up to 1.9 His proBNP is 1550 and procalcitonin negative at 0.16 Chest x-ray reviewed by myself showing right more than left infiltrate but looks better than 2 days ago Renal ultrasound showing no hydronephrosis finger right renal cyst He is currently kept on Zosyn. On home dose of Eliquis 2.5 mg. He had pneumothorax on the right side status post Thora vent, currently he has minimal discharge from his right Thora vent 12/10 Patient moved out of the ICU to select unit He is more awake today but still confused, he was trying to pull out his lines and Thora vent. He is mildly tachypneic with talking. He can tell he is in the hospital but also still mildly confused. Serevent was Today. Repeat chest x-ray showing mild improvement in the right pneumothorax, I reviewed the chest x-ray by myself. He remains on Zosyn and home dose of Eliquis 2.5 Will going to add small dose of Seroquel 12.5. 12/11 Patient more awake trying to talk Still feel short of breath although slightly better than yesterday, breathing r ate around 22 compared to 28 yesterday, his right upper chest Thora vent is in place and capped Repeat chest x-ray this morning showing right pleural effusion more than left with pulmonary vascular congestion suspicious for CHF. Currently patient off IV fluid He is on Zosyn and Eliquis 2.5 mg. 12/12 Patient in the morning was awake and alert but slightly agitated, he had a sitter at bedside. Thora vent was taken out after it was capped yesterday. His mentation was getting worse through the day and he became more tachypneic and tachycardic and he has to be placed on BiPAP. Repeat chest x-ray showing moderate to large right pleural effusion and evidence of CHF. Patient was moved to the ICU for more monitoring pH was 7.2 worsening to instructor hairspring to 7.08 and pCO2 was elevated at 58 wor sened to 92. Creatinine also worsened up to 2.7 and sodium 146., With worsening breathing patient had to be intubated and placed on mechanical ventilation 12/13 Patient remains in the ICU intubated and sedated His breathing more quiet today. Abdomen soft Hemoglobin dropped to 7.0. Platelet count stable at 139, creatinine stable or slightly improved 2.7 down to 2.6. Patient placed on normal saline 75 mL/h. 12/14 Patient remains intubated and sedated He does not need pressors and Zosyn was discontinued He received some IV fluid Chest x-ray still showing pulmonary vascular congestion Pathology from pleural fluid came back positive for malignancy Sister and at bedside, oncology team discussing the case with them. Patient still at risk. 12/15 Patient remains intubated on mechanical ventilation in the ICU Family yesterday discussed the case with oncology team and patient remains full code and he was started on chemotherapy. Imodium can be stopped Chest x-ray showing persistent right-sided infiltrate most likely secondary to fluid and malignancy. Prognosis remains guarded and patient still high risk 12/16 Patient remains intubated and sedated Patient has no events overnight He was getting chemotherapy No IV fluid, no antibiotic chest tube feeding, he got 1 dose of 80 mg of Lasix yesterday He has good urine output of about 15 to 20 mL/h Also has low-grade temperature 100.2 yesterday and 9.9 today. Repeat chest x-ray showing CHF for right pleural effusion which is malignant p leural effusion Patient continue to get chemotherapy through tomorrow Patient has negative C. diff test 12/17 Patient still getting chemotherapy His creatinine gets worse and he has hemodialysis catheter placed in He remains intubated in the ICU on mechanical ventilation Breathing rate about 27 Creatinine worse at 5.0. Phosphorus 12.7. Glucose controlled. pH 7.23 12/18 Patient remains in the ICU intubated and sedated. Patient is today finished his chemotherapy per oncology team. Today he is not getting chemotherapy there is another cycle in order for chemotherapy on 12/21. However patient today developing worsening hypotension requiring Levophed and also started on sodium bicarb. Potassium and creatinine trending up, currently 5.6 with a plan for hemodialysis per dish up person. Hemoglobin 7.0. Leukocytosis is increased but pH is low at 7.1. Chest x-ray showing same malignant pleural effusion. Prognosis tomy guarded 12/19/2024 Patient is seen in follow-up today continues in the ICU with multiple consultations following maintained on mechanical ventilation. Kidney functions are worsening with nephrology following and vascular surgery was consulted and dialysis catheter was placed. Patient scheduled to undergo hemodialysis today. Patient continues on pressor support which is being weaned and overall prognosis remains significantly guarded. Hemoglobin is stable today and being given a unit of PRBC. Will follow-up on repeat labs and monitor closely. Review of systems: Unable to obtain as patient is on mechanical ventilation and sedated Active Medications Albuterol/Ipratropium (Ipratropium-Albuterol 3 Ml Neb) 3 ml INHALATION RT-Q4H [facility] Last Admin: 12/20/24 04:04 Dose: 3 ml Amiodarone HCl (Amiodarone 200 Mg Tab) 200 mg PO BID [facility] Last Admin: 12/19/24 21:41 Dose: 200 mg Bortezomib (Bortezomib 3.5 Mg Vial) 2.75 mg SQ ONCE ONE Stop: 12/21/24 14:01 Bortezomib (Bortezomib 3.5 Mg Vial) 2.75 mg SQ ONCE ONE Stop: 12/24/24 14:01 Chlorhexidine Gluconate (Chlorhexidine Gluconate 15 Ml Cup) 15 ml MUCOUS MEM BID [facility] Last Admin: 12/19/24 21:41 Dose: 15 ml Dexamethasone (Dexamethasone 4 Mg Tab) 40 mg PO DAILY [facility] Stop: 12/25/24 09:01 Dexamethasone (Dexamethasone 4 Mg Tab) 40 mg PO DAILY [facility] Stop: 01/02/25 09:01 Dextrose/Water (Dextrose 50% Syringe 50 Ml) 25 ml IVP PER PROTOCOL PRN; Protocol PRN Reason: Hypoglycemia Dextrose/Water (Dextrose 50% Syringe 50 Ml) 50 ml IVP PER PROTOCOL PRN; Mason col PRN Reason: Hypoglycemia Hydromorphone HCl (Hydromorphone 1 Mg/Ml 1 Ml Syringe) 1 mg IVP Q4HR PRN PRN Reason: Pain Last Admin: 12/19/24 05:20 Dose: 1 mg Propofol 1,000 mg/ IV Solution 100 mls @ 7.614 mls/hr IV .Q13H9M [facility]; Protocol Last Admin: 12/19/24 17:19 Dose: 10 mcg/kg/min, 5.076 mls/hr Cyclophosphamide 600 mg/ (Sodium Chloride) 253 mls @ 506 mls/hr IV Q7D [facility] Stop: 01/04/25 14:29 Last Admin: 12/14/24 14:36 Dose: 506 mls/hr Ondansetron HCl 16 mg/ Sodium (Chloride) 58 mls @ 232 mls/hr IVPB Q7D [facility] Stop: 01/04/25 13:14 Last Admin: 12/14/24 13:38 Dose: 232 mls/hr Norepinephrine Bitartrate 4 mg (/ Sodium Chloride) 254 mls @ 9.464 mls/hr IV .Q24H [facility]; Protocol Last Admin: 12/20/24 01:16 Dose: 0.06 mcg/kg/min, 18.928 mls/hr Piperacillin Sod/Tazobactam (Sod 3.375 gm/ Sodium Chloride) 100 mls @ 25 mls/hr IVPB Q12H [facility]; Protocol Last Admin: 12/19/24 17:20 Dose: 25 mls/hr Sodium Chloride (Saline 0.9%) 1,000 mls @ 70 mls/hr IV .[id number] [facility] Last Admin: 12/19/24 21:41 Dose: 70 mls/hr Insulin Human Lispro (Insulin Lispro (Humalog) 100 Unit/Ml 10 Ml Vl) 0 unit SQ Q6H [facility]; Protocol Last Admin: 12/20/24 05:44 Dose: Not Given Metoclopramide HCl (Metoclopramide 5 Mg/Ml 2 Ml Vial) 10 mg IVP Q6HR [facility] Last Admin: 12/20/24 01:11 Dose: 10 mg Metoprolol Tartrate (Metoprolol Tartrate 50 Mg Tab) 50 mg PO DAILY [facility] Last Admin: 12/19/24 13:56 Dose: Not Given Miscellaneous Information (Pneumonia Protocol Utilized 1 Each Misc) 1 each PO ONCE PRN PRN Reason: Per Protocol Miscellaneous Information (Potassium Replacement Protocol 1 Each Misc) 1 each MISCELLANE DAILY PRN; Protocol PRN Reason: Per Protocol Miscellaneous Information (Magnesium Replacement Protocol 1 Each Misc) 1 each MISCELLANE DAILY PRN; Protocol PRN Reason: Per Protocol Naloxone HCl (Naloxone 0.4 Mg/Ml 1 Ml Vial) 0.2 mg IV Q2M PRN PRN Reason: Opioid Reversal Pantoprazole Sodium (Pantoprazole 40 Mg/10 Ml Vial) 40 mg IVP DAILY [facility] Last Admin: 12/19/24 09:28 Dose: 40 mg Physical exam: GENERAL: The patient is currently undergoing sedation trial and is opening eyes although not following commands, maintained on mechanical ventilation, well- developed, elderly appearing, ill-appearing HEENT: Pupils are round and equally reacting to light. EOMI. No scleral icterus. No conjunctival pallor. Normocephalic, atraumatic. No pharyngeal erythema. No thyromegaly. CARDIOVASCULAR: S1 and S2 muffled PULMONARY: Chest is clear to auscultation, no wheezing , no crackles. Tachypneic, decreased breath sounds on the right side ABDOMEN: Soft, nontender, nondistended, normoactive bowel sounds. No palpable organomegaly. MUSCULOSKELETAL: No joint swelling or deformity. EXTREMITIES: No cyanosis, clubbing, or pedal edema. NEUROLOGICAL: Gross neurological examination did not reveal any focal deficits. Diffusely weak SKIN: No rashes. no petechiae. Assessment: Acute hypoxic respiratory failure required intubation and mechanical ventilation Malignant large pleural effusion status post thoracocentesis. On 12/13 has breathing that worsened because of CHF and large pleural effusion and patient has to be placed on mechanical ventilation. Pathology sample came back positive for malignant cells Iatrogenic right pneumothorax status post Thora vent placement, which was removed on 12/13 Possible septic shock Acute kidney injury with worsening kidney functions, status post dialysis catheter placement and scheduled to undergo hemodialysis today 12/19/2024 Multiple myeloma, s/p chemotherapy 12/15-12/17 Hypercalcemia Chronic anemia Hypertension Hyperlipidemia Obstructive sleep apnea A-fib and RVR GI prophylaxis DVT prophylaxis Full code Plan: Continue patient care in the ICU with multiple consultations following maintained on mechanical ventilation, undergoing sedation trials and is opening eyes although not following commands Started chemotherapy on 12/15-12/17. Another plan of chemotherapy is planned on 12/21 which may be held Started on Levophed and sodium bicarb, weaning as tolerated Patient with worsening leukocytosis although this also could be explained by steroids. Also patient has a fever around 100 degree and chest x-ray showing malignant effusion, there is suspicion of infection therefore recommend start the patient on Zosyn and check procalcitonin Patient with worsening kidney functions per nephrology, vascular surgery consulted and patient is status post dialysis catheter placement scheduled to undergo hemodialysis today 12/19/2024 Continue with intubation and mechanical ventilation as per pulmonary/critical care team On Lasix per dish up person Antibiotics were discontinued Due to multiple complex medical issues, overall prognosis is extremely guarded at this time The impression and plan of care has been dictated by Mildred Goff, Nurse Practitioner as directed. Dr. Keith MD I have performed a history and examination and MDM of this patient, discussed the same with the dictator, and agree with the dictator's assessment and plan as written ,documented as a scribe. Based on total visit time, I have performed more than 50% of the visit. Objective - Vital Signs Vital signs: Vital Signs Temp 97.8 F 12/20/24 03:00 Pulse 113 H 12/20/24 05:30 Resp 26 H 12/20/24 05:30 BP 141/77 12/20/24 05:00 Pulse Ox 97 12/20/24 05:30 FiO2 35 12/20/24 05:30 Intake & Output 12/19/24 12/19/24 12/20/24 06:59 18:59 06:59 Intake Total 907.692 4570.292 905.948 Output Total 1170 3005 1085 Balance -265.345 -207.708 -179.052 Weight 83.2 kg 82.9 kg Intake: IV 33 39 27 0.9 pressure bag 33 39 27 Intake, IV Titration 824.746 9587.292 818.948 Amount Dextrose 5% in Water 1, 300 900 75 000 ml @ 75 mls/hr IV . [id number] [facility] with Sodium Bicarb (1 Meq/ml) 150 ml Rx#:[id number] Norepinephrine 4 mg In 6.099 182.708 153.948 Sodium Chloride 0.9% 250 ml @ 0.03 MCG/KG/MIN 9. 464 mls/hr IV .Q24H [facility] Rx#:[id number] Piperacillin-Tazobactam 3 100 100 .375 gm In Sodium Chloride 0.9% 100 ml @ 25 mls/hr IVPB Q12H [facility] Rx# :[id number] Sodium Chloride 0.9% 1, 490 000 ml @ 70 mls/hr IV . [id number] [facility] Rx#:[id number] propofoL 1,000 mg In 70.556 83.584 Empty Bag 1 bag @ 15 MCG/ KG/MIN 7.614 mls/hr IV . [id number] [facility] Rx#:[id number] Oral 0 Tube Feeding 495 135 Blood Product 577 Rc As-1 Unit 0 [id number] Rc Pheresis 2 As3 Unit 285 [id number] Rc Pheresis As-3 Unit 292 [id number] Hemodialysis 750 Other 30 60 Output: Gastric Drainage 200 300 Urine 570 1355 785 Stool 700 Urine/Stool Mix 600 Hemodialysis 450 Hemodialysis Net Amount 300 Other: Voiding Method Indwelling Catheter Indwelling Catheter Indwelling Catheter ABP, PAP, CO, CI - Last Documented Arterial Blood Pressure 148/54 - Labs CBC & Chem 7: 12/20/24 05:14 12/20/24 05:14 Labs: Abnormal Lab Results - Last 24 Hours (Table) 12/19/24 12/19/24 12/19/24 Range/Units 06:00 06:00 06:00 WBC (3.8-10.6) k/uL RBC (4.30-5.90) m/uL Hgb (13.0-17.5) gm/dL Hct (39.0-53.0) % MCV (80.0-100.0) fL RDW (11.5-15.5) % Plt Count (150-450) k/uL Neutrophils # (1.3-7.7) k/uL Lymphocytes # (1.0-4.8) k/uL ABG pH (7.35-7.45) ABG pCO2 (35-45) mmHg ABG O2 Saturation (94-97) % Hemoglobin (13.0-17.5) gm/dL Chloride 108 H (98-107) mmol/L Carbon Dioxide 19 L (22-30) mmol/L BUN 203 H* (9-20) mg/dL Creatinine 4.54 H (0.66-1.25) mg/dL Glucose 147 H (74-99) mg/dL POC Glucose (mg/dL) (70-110) mg/dL Calcium 8.3 L (8.4-10.2) mg/dL Procalcitonin 0.67 H (0.02-0.50) ng/mL IgG (700.0-1600.0) mg/dL IgM (40.0-280.0) mg/dL Crossmatch See Detail 12/19/24 12/19/24 12/19/24 Range/Units 06:00 11:20 13:12 WBC (3.8-10.6) k/uL RBC 1.74 L (4.30-5.90) m/uL Hgb 5.9 L* (13.0-17.5) gm/dL Hct 18.3 L* (39.0-53.0) % MCV 104.9 H (80.0-100.0) fL RDW (11.5-15.5) % Plt Count 135 L (150-450) k/uL Neutrophils # (1.3-7.7) k/uL Lymphocytes # 0.3 L (1.0-4.8) k/uL ABG pH (7.35-7.45) ABG pCO2 (35-45) mmHg ABG O2 Saturation (94-97) % Hemoglobin (13.0-17.5) gm/dL Chloride (98-107) mmol/L Carbon Dioxide (22-30) mmol/L BUN (9-20) mg/dL Creatinine (0.66-1.25) mg/dL Glucose (74-99) mg/dL POC Glucose (mg/dL) 154 H 166 H (70-110) mg/dL Calcium (8.4-10.2) mg/dL Procalcitonin (0.02-0.50) ng/mL IgG (700.0-1600.0) mg/dL IgM (40.0-280.0) mg/dL Crossmatch 12/19/24 12/19/24 12/19/24 Range/Units 13:12 17:28 17:47 WBC 11.1 H (3.8-10.6) k/uL RBC 2.06 L 2.53 L (4.30-5.90) m/uL Hgb 6.8 L* 8.1 L (13.0-17.5) gm/dL Hct 20.2 L 24.4 L (39.0-53.0) % MCV (80.0-100.0) fL RDW 17.5 H 18.1 H (11.5-15.5) % Plt Count 124 L 108 L (150-450) k/uL Neutrophils # 9.9 H (1.3-7.7) k/uL Lymphocytes # 0.4 L 0.4 L (1.0-4.8) k/uL ABG pH (7.35-7.45) ABG pCO2 (35-45) mmHg ABG O2 Saturation (94-97) % Hemoglobin (13.0-17.5) gm/dL Chloride (98-107) mmol/L Carbon Dioxide (22-30) mmol/L BUN (9-20) mg/dL Creatinine (0.66-1.25) mg/dL Glucose (74-99) mg/dL POC Glucose (mg/dL) 172 H (70-110) mg/dL Calcium (8.4-10.2) mg/dL Procalcitonin (0.02-0.50) ng/mL IgG (700.0-1600.0) mg/dL IgM (40.0-280.0) mg/dL Crossmatch 12/19/24 12/19/24 12/19/24 Range/Units 18:32 18:32 20:25 WBC (3.8-10.6) k/uL RBC (4.30-5.90) m/uL Hgb (13.0-17.5) gm/dL Hct (39.0-53.0) % MCV (80.0-100.0) fL RDW (11.5-15.5) % Plt Count (150-450) k/uL Neutrophils # (1.3-7.7) k/uL Lymphocytes # (1.0-4.8) k/uL ABG pH (7.35-7.45) ABG pCO2 (35-45) mmHg ABG O2 Saturation (94-97) % Hemoglobin (13.0-17.5) gm/dL Chloride (98-107) mmol/L Carbon Dioxide (22-30) mmol/L BUN 139 H* (9-20) mg/dL Creatinine 2.97 H (0.66-1.25) mg/dL Glucose 155 H (74-99) mg/dL POC Glucose (mg/dL) 163 H (70-110) mg/dL Calcium 8.3 L (8.4-10.2) mg/dL Procalcitonin (0.02-0.50) ng/mL IgG 379.0 L (700.0-1600.0) mg/dL IgM <35.0 L (40.0-280.0) mg/dL Crossmatch 12/19/24 12/20/24 12/20/24 Range/Units 23:59 04:08 05:12 WBC (3.8-10.6) k/uL RBC (4.30-5.90) m/uL Hgb (13.0-17.5) gm/dL Hct (39.0-53.0) % MCV (80.0-100.0) fL RDW (11.5-15.5) % Plt Count (150-450) k/uL Neutrophils # (1.3-7.7) k/uL Lymphocytes # (1.0-4.8) k/uL ABG pH 7.48 H (7.35-7.45) ABG pCO2 31 L (35-45) mmHg ABG O2 Saturation 98.5 H (94-97) % Hemoglobin 7.6 L (13.0-17.5) gm/dL Chloride (98-107) mmol/L Carbon Dioxide (22-30) mmol/L BUN (9-20) mg/dL Creatinine (0.66-1.25) mg/dL Glucose (74-99) mg/dL POC Glucose (mg/dL) 147 H 148 H (70-110) mg/dL Calcium (8.4-10.2) mg/dL Procalcitonin (0.02-0.50) ng/mL IgG (700.0-1600.0) mg/dL IgM (40.0-280.0) mg/dL Crossmatch 12/20/24 12/20/24 Range/Units 05:14 05:14 WBC 11.6 H (3.8-10.6) k/uL RBC 2.37 L (4.30-5.90) m/uL Hgb 7.8 L (13.0-17.5) gm/dL Hct 22.9 L (39.0-53.0) % MCV (80.0-100.0) fL RDW 17.5 H (11.5-15.5) % Plt Count 107 L (150-450) k/uL Neutrophils # 10.1 H (1.3-7.7) k/uL Lymphocytes # 0.6 L (1.0-4.8) k/uL ABG pH (7.35-7.45) ABG pCO2 (35-45) mmHg ABG O2 Saturation (94-97) % Hemoglobin (13.0-17.5) gm/dL Chloride (98-107) mmol/L Carbon Dioxide (22-30) mmol/L BUN 144 H* (9-20) mg/dL Creatinine 2.85 H (0.66-1.25) mg/dL Glucose 125 H (74-99) mg/dL POC Glucose (mg/dL) (70-110) mg/dL Calcium (8.4-10.2) mg/dL Procalcitonin (0.02-0.50) ng/mL IgG (700.0-1600.0) mg/dL IgM (40.0-280.0) mg/dL Crossmatch Microbiology - Last 24 Hours (Table) 12/18/24 12:40 Blood Culture - Preliminary Blood
--- NOTE | 2024-12-20 07:51 | XR ---
EXAMINATION TYPE: XR chest 1V portable DATE OF EXAM: 12/20/2024 6:15 AM COMPARISON: Chest radiograph from one day prior. CLINICAL INDICATION: Male, 79 years old with history of cont intubation; [facility] TECHNIQUE: XR chest 1V portable Frontal view of the chest. FINDINGS: FINDINGS: Prominent skinfold folds throughout the left thorax lung markings are seen beyond this. Lungs/Pleura: Blunting of the right costophrenic angle. There is no evidence of left pleural effusio n, focal consolidation, or pneumothorax Pulmonary vascularity: Unremarkable. Heart/mediastinum: Cardiomediastinal silhouette is unremarkable. Musculoskeletal: No acute osseous pathology. Other findings: None Lines/Tubes: Endotracheal tube with distal tip 8.3 cm above the cleve. Nasogastric tube with its distal tip and side-port projecting under the diaphragm. IMPRESSION: 1. Layering right pleural effusion. 2. Endotracheal tube in satisfactory position. [facility], , 12/20/2024 7:49 AM
[2024-12-20] MEDS: ACETAMINOPHEN TAB 325 MG TAB PO PRN (08:29)
[2024-12-20 11:51] LABS: Glucose,Whole Blood 140 mg/dL (70-110)
--- NOTE | 2024-12-20 12:07 | P.PN ---
Subjective Patient is seen for follow-up for acute kidney injury. Patient is intubated, FiO2 at 35%. Started hemodialysis on 12/19/2024 Urine output at 45-70 cc/h Maintained on normal saline Sedation has been weaned off and Levophed is almost off now. Objective - Vital Signs Vital signs: Vital Signs Temp 100.3 F H 12/20/24 08:00 Pulse 116 H 12/20/24 11:20 Resp 22 12/20/24 11:00 BP 135/75 12/20/24 08:30 Pulse Ox 97 12/20/24 11:00 FiO2 35 12/20/24 11:10 Intake & Output 12/19/24 12/20/24 12/20/24 18:59 06:59 18:59 Intake Total 2797.292 1223.359 176 Output Total 3005 1460 85 Balance -207.708 -236.641 91 Weight 82.9 kg Intake: IV 39 33 6 0.9 pressure bag 39 33 6 Intake, IV Titration 9969.022 3793.359 170 Amount Dextrose 5% in Water 1, 900 75 000 ml @ 75 mls/hr IV . [id number] [facility] with Sodium Bicarb (1 Meq/ml) 150 ml Rx#:[id number] Norepinephrine 4 mg In 182.708 258.525 Sodium Chloride 0.9% 250 ml @ 0.03 MCG/KG/MIN 9. 464 mls/hr IV .Q24H [facility] Rx#:[id number] Piperacillin-Tazobactam 3 100 100 100 .375 gm In Sodium Chloride 0.9% 100 ml @ 25 mls/hr IVPB Q12H [facility] Rx# :[id number] Sodium Chloride 0.9% 1, 630 70 000 ml @ 70 mls/hr IV . [id number] [facility] Rx#:[id number] propofoL 1,000 mg In 83.584 66.834 Empty Bag 1 bag @ 15 MCG/ KG/MIN 7.614 mls/hr IV . Q13H9M [facility] Rx#:[id number] Oral 0 0 Tube Feeding 135 Blood Product 577 Rc As-1 Unit 0 [id number] Rc Pheresis 2 As3 Unit 285 [id number] Rc Pheresis As-3 Unit 292 [id number] Hemodialysis 750 Other 30 60 Output: Gastric Drainage 200 450 Urine 1355 935 85 Stool 700 Urine/Stool Mix 75 Hemodialysis 450 Hemodialysis Net Amount 300 Other: Voiding Method Indwelling Catheter Indwelling Catheter Indwelling Catheter ABP, PAP, CO, CI - Last Documented Arterial Blood Pressure 127/47 - Exam Patient is intubated and on the vent. Follows commands Examination of the heart S1 and S2 Examination of the lungs bilateral breath sounds are heard Abdomen is soft nontender Examination of lower extremities shows 1+ edema - Labs CBC & Chem 7: 12/20/24 05:14 12/20/24 05:14 Labs: Abnormal Lab Results - Last 24 Hours (Table) 12/19/24 12/19/24 12/19/24 Range/Units 06:00 13:12 13:12 WBC (3.8-10.6) k/uL RBC 2.06 L (4.30-5.90) m/uL Hgb 6.8 L* (13.0-17.5) gm/dL Hct 20.2 L (39.0-53.0) % RDW 17.5 H (11.5-15.5) % Plt Count 124 L (150-450) k/uL Neutrophils # (1.3-7.7) k/uL Lymphocytes # 0.4 L (1.0-4.8) k/uL ABG pH (7.35-7.45) ABG pCO2 (35-45) mmHg ABG O2 Saturation (94-97) % Hemoglobin (13.0-17.5) gm/dL BUN (9-20) mg/dL Creatinine (0.66-1.25) mg/dL Glucose (74-99) mg/dL POC Glucose (mg/dL) 166 H (70-110) mg/dL Calcium (8.4-10.2) mg/dL IgG (700.0-1600.0) mg/dL IgM (40.0-280.0) mg/dL Crossmatch See Detail 12/19/24 12/19/24 12/19/24 Range/Units 17:28 17:47 18:32 WBC 11.1 H (3.8-10.6) k/uL RBC 2.53 L (4.30-5.90) m/uL Hgb 8.1 L (13.0-17.5) gm/dL Hct 24.4 L (39.0-53.0) % RDW 18.1 H (11.5-15.5) % Plt Count 108 L (150-450) k/uL Neutrophils # 9.9 H (1.3-7.7) k/uL Lymphocytes # 0.4 L (1.0-4.8) k/uL ABG pH (7.35-7.45) ABG pCO2 (35-45) mmHg ABG O2 Saturation (94-97) % Hemoglobin (13.0-17.5) gm/dL BUN (9-20) mg/dL Creatinine (0.66-1.25) mg/dL Glucose (74-99) mg/dL POC Glucose (mg/dL) 172 H (70-110) mg/dL Calcium (8.4-10.2) mg/dL IgG 379.0 L (700.0-1600.0) mg/dL IgM <35.0 L (40.0-280.0) mg/dL Crossmatch 12/19/24 12/19/24 12/19/24 Range/Units 18:32 20:25 23:59 WBC (3.8-10.6) k/uL RBC (4.30-5.90) m/uL Hgb (13.0-17.5) gm/dL Hct (39.0-53.0) % RDW (11.5-15.5) % Plt Count (150-450) k/uL Neutrophils # (1.3-7.7) k/uL Lymphocytes # (1.0-4.8) k/uL ABG pH (7.35-7.45) ABG pCO2 (35-45) mmHg ABG O2 Saturation (94-97) % Hemoglobin (13.0-17.5) gm/dL BUN 139 H* (9-20) mg/dL Creatinine 2.97 H (0.66-1.25) mg/dL Glucose 155 H (74-99) mg/dL POC Glucose (mg/dL) 163 H 147 H (70-110) mg/dL Calcium 8.3 L (8.4-10.2) mg/dL IgG (700.0-1600.0) mg/dL IgM (40.0-280.0) mg/dL Crossmatch 12/20/24 12/20/2412/20/25 Range/Units 04:08 05:12 05:14 WBC (3.8-10.6) k/uL RBC (4.30-5.90) m/uL Hgb (13.0-17.5) gm/dL Hct (39.0-53.0) % RDW (11.5-15.5) % Plt Count (150-450) k/uL Neutrophils # (1.3-7.7) k/uL Lymphocytes # (1.0-4.8) k/uL ABG pH 7.48 H (7.35-7.45) ABG pCO2 31 L (35-45) mmHg ABG O2 Saturation 98.5 H (94-97) % Hemoglobin 7.6 L (13.0-17.5) gm/dL BUN 144 H* (9-20) mg/dL Creatinine 2.85 H (0.66-1.25) mg/dL Glucose 125 H (74-99) mg/dL POC Glucose (mg/dL) 148 H (70-110) mg/dL Calcium (8.4-10.2) mg/dL IgG (700.0-1600.0) mg/dL IgM (40.0-280.0) mg/dL Crossmatch 12/20/24 12/20/24 Range/Units 05:14 11:50 WBC 11.6 H (3.8-10.6) k/uL RBC 2.37 L (4.30-5.90) m/uL Hgb 7.8 L (13.0-17.5) gm/dL Hct 22.9 L (39.0-53.0) % RDW 17.5 H (11.5-15.5) % Plt Count 107 L (150-450) k/uL Neutrophils # 10.1 H (1.3-7.7) k/uL Lymphocytes # 0.6 L (1.0-4.8) k/uL ABG pH (7.35-7.45) ABG pCO2 (35-45) mmHg ABG O2 Saturation (94-97) % Hemoglobin (13.0-17.5) gm/dL BUN (9-20) mg/dL Creatinine (0.66-1.25) mg/dL Glucose (74-99) mg/dL POC Glucose (mg/dL) 140 H (70-110) mg/dL Calcium (8.4-10.2) mg/dL IgG (700.0-1600.0) mg/dL IgM (40.0-280.0) mg/dL Crossmatch Microbiology - Last 24 Hours (Table) 12/18/24 12:40 Blood Culture - Preliminary Blood Assessment and Plan Assessment: 1. Acute kidney injury most likely ATN currently nonoliguric, UA is benign ultrasound does not show any evidence of obstruction. Serum creatinine 1.4 on admission and 0.8 on 07/27/2024. Renal function seems to be improving with a decrease in creatinine however BUN is significantly elevated. Started hemodialysis on 12/19/2024 mostly for significantly elevated solute load and BUN above 200 2. Right pleural effusion status post thoracentesis with development of pneumothorax status post Thora vent with resolution of pneumothorax 3. Anemia with no active bleeding noted. Underlying history of multiple myeloma 4. Multiple myeloma being followed by Dr. Aden. Maintained on chemotherapy 5. Hypercalcemia on initial admission possibly related to hypovolemia, now improved to 9.4. Patient has had significant hypercalcemia previously most likely related to multiple myeloma in October 2023 6. Anion gap metabolic acidosis secondary to acute kidney injury 7. Hyperkalemia associated with acute kidney injury, improved with dialysis and improving urine output. Plan: Hemodialysis today DC IV fluids UF 1 to 1.5 L today with hemodialysis.
[2024-12-20] MEDS: IMMUNE GLOBULIN (GAMMAGARD) 20 GM in EMPTY BAG 1 BAG IV ONE ×2 (12:35→15:02)
--- NOTE | 2024-12-20 13:46 | P.PN ---
Subjective Progress Note Date: 12/20/24 Remains in ICU, ventilated and sedated. Wbc 11.6, hgb 7.8, plt 107. HD has been started, creatinine 2.85, GFR 20. BC negative at 24 hrs, temp 100.3 this morning. Covered with Zosyn Objective - Vital Signs Vital signs: Vital Signs Temp 100.3 F H 12/20/24 08:00 Pulse 114 H 12/20/24 08:30 Resp 26 H 12/20/24 08:30 BP 135/75 12/20/24 08:30 Pulse Ox 96 12/20/24 08:30 FiO2 35 12/20/24 08:00 Intake & Output 12/19/24 12/20/24 12/20/24 18:59 06:59 18:59 Intake Total 2797.292 1223.359 176 Output Total 3005 1460 85 Balance -207.708 -236.641 91 Weight 82.9 kg Intake: IV 39 33 6 0.9 pressure bag 39 33 6 Intake, IV Titration 4777.003 6577.359 170 Amount Dextrose 5% in Water 1, 900 75 000 ml @ 75 mls/hr IV . [id number] [facility] with Sodium Bicarb (1 Meq/ml) 150 ml Rx#:[id number] Norepinephrine 4 mg In 182.708 258.525 Sodium Chloride 0.9% 250 ml @ 0.03 MCG/KG/MIN 9. 464 mls/hr IV .Q24H [facility] Rx#:[id number] Piperacillin-Tazobactam 3 100 100 100 .375 gm In Sodium Chloride 0.9% 100 ml @ 25 mls/hr IVPB Q12H [facility] Rx# :[id number] Sodium Chloride 0.9% 1, 630 70 000 ml @ 70 mls/hr IV . [id number] [facility] Rx#:[id number] propofoL 1,000 mg In 83.584 66.834 Empty Bag 1 bag @ 15 MCG/ KG/MIN 7.614 mls/hr IV . Q13H9M [facility] Rx#:[id number] Oral 0 0 Tube Feeding 135 Blood Product 577 Rc As-1 Unit 0 [id number] Rc Pheresis 2 As3 Unit 285 [id number] Rc Pheresis As-3 Unit 292 [id number] Hemodialysis 750 Other 30 60 Output: Gastric Drainage 200 450 Urine 1355 935 85 Stool 700 Urine/Stool Mix 75 Hemodialysis 450 Hemodialysis Net Amount 300 Other: Voiding Method Indwelling Catheter Indwelling Catheter ABP, PAP, CO, CI - Last Documented Arterial Blood Pressure 111/44 - Constitutional General appearance: Present: no acute distress - Respiratory Details: ventilated breath sounds - Cardiovascular Details: skin warm and dry - Integumentary Integumentary: Absent: cyanotic, jaundiced - Labs CBC & Chem 7: 12/20/24 05:14 12/20/24 05:14 Labs: Abnormal Lab Results - Last 24 Hours (Table) 12/19/24 12/19/24 12/19/24 Range/Units 06:00 06:00 11:20 WBC (3.8-10.6) k/uL RBC (4.30-5.90) m/uL Hgb (13.0-17.5) gm/dL Hct (39.0-53.0) % RDW (11.5-15.5) % Plt Count (150-450) k/uL Neutrophils # (1.3-7.7) k/uL Lymphocytes # (1.0-4.8) k/uL ABG pH (7.35-7.45) ABG pCO2 (35-45) mmHg ABG O2 Saturation (94-97) % Hemoglobin (13.0-17.5) gm/dL BUN (9-20) mg/dL Creatinine (0.66-1.25) mg/dL Glucose (74-99) mg/dL POC Glucose (mg/dL) 154 H (70-110) mg/dL Calcium (8.4-10.2) mg/dL Procalcitonin 0.67 H (0.02-0.50) ng/mL IgG (700.0-1600.0) mg/dL IgM (40.0-280.0) mg/dL Crossmatch See Detail 12/19/24 12/19/24 12/19/24 Range/Units 13:12 13:12 17:28 WBC 11.1 H (3.8-10.6) k/uL RBC 2.06 L 2.53 L (4.30-5.90) m/uL Hgb 6.8 L* 8.1 L (13.0-17.5) gm/dL Hct 20.2 L 24.4 L (39.0-53.0) % RDW 17.5 H 18.1 H (11.5-15.5) % Plt Count 124 L 108 L (150-450) k/uL Neutrophils # 9.9 H (1.3-7.7) k/uL Lymphocytes # 0.4 L 0.4 L (1.0-4.8) k/uL ABG pH (7.35-7.45) ABG pCO2 (35-45) mmHg ABG O2 Saturation (94-97) % Hemoglobin (13.0-17.5) gm/dL BUN (9-20) mg/dL Creatinine (0.66-1.25) mg/dL Glucose (74-99) mg/dL POC Glucose (mg/dL) 166 H (70-110) mg/dL Calcium (8.4-10.2) mg/dL Procalcitonin (0.02-0.50) ng/mL IgG (700.0-1600.0) mg/dL IgM (40.0-280.0) mg/dL Crossmatch 12/19/24 12/19/24 12/19/24 Range/Units 17:47 18:32 18:32 WBC (3.8-10.6) k/uL RBC (4.30-5.90) m/uL Hgb (13.0-17.5) gm/dL Hct (39.0-53.0) % RDW (11.5-15.5) % Plt Count (150-450) k/uL Neutrophils # (1.3-7.7) k/uL Lymphocytes # (1.0-4.8) k/uL ABG pH (7.35-7.45) ABG pCO2 (35-45) mmHg ABG O2 Saturation (94-97) % Hemoglobin (13.0-17.5) gm/dL BUN 139 H* (9-20) mg/dL Creatinine 2.97 H (0.66-1.25) mg/dL Glucose 155 H (74-99) mg/dL POC Glucose (mg/dL) 172 H (70-110) mg/dL Calcium 8.3 L (8.4-10.2) mg/dL Procalcitonin (0.02-0.50) ng/mL IgG 379.0 L (700.0-1600.0) mg/dL IgM <35.0 L (40.0-280.0) mg/dL Crossmatch 12/19/24 12/19/24 12/20/24 Range/Units 20:25 23:59 04:08 WBC (3.8-10.6) k/uL RBC (4.30-5.90) m/uL Hgb (13.0-17.5) gm/dL Hct (39.0-53.0) % RDW (11.5-15.5) % Plt Count (150-450) k/uL Neutrophils # (1.3-7.7) k/uL Lymphocytes # (1.0-4.8) k/uL ABG pH 7.48 H (7.35-7.45) ABG pCO2 31 L (35-45) mmHg ABG O2 Saturation 98.5 H (94-97) % Hemoglobin 7.6 L (13.0-17.5) gm/dL BUN (9-20) mg/dL Creatinine (0.66-1.25) mg/dL Glucose (74-99) mg/dL POC Glucose (mg/dL) 163 H 147 H (70-110) mg/dL Calcium (8.4-10.2) mg/dL Procalcitonin (0.02-0.50) ng/mL IgG (700.0-1600.0) mg/dL IgM (40.0-280.0) mg/dL Crossmatch 12/20/24 12/20/24 12/20/24 Range/Units 05:12 05:14 05:14 WBC 11.6 H (3.8-10.6) k/uL RBC 2.37 L (4.30-5.90) m/uL Hgb 7.8 L (13.0-17.5) gm/dL Hct 22.9 L (39.0-53.0) % RDW 17.5 H (11.5-15.5) % Plt Count 107 L (150-450) k/uL Neutrophils # 10.1 H (1.3-7.7) k/uL Lymphocytes # 0.6 L (1.0-4.8) k/uL ABG pH (7.35-7.45) ABG pCO2 (35-45) mmHg ABG O2 Saturation (94-97) % Hemoglobin (13.0-17.5) gm/dL BUN 144 H* (9-20) mg/dL Creatinine 2.85 H (0.66-1.25) mg/dL Glucose 125 H (74-99) mg/dL POC Glucose (mg/dL) 148 H (70-110) mg/dL Calcium (8.4-10.2) mg/dL Procalcitonin (0.02-0.50) ng/mL IgG (700.0-1600.0) mg/dL IgM (40.0-280.0) mg/dL Crossmatch Microbiology - Last 24 Hours (Table) 12/18/24 12:40 Blood Culture - Preliminary Blood Assessment and Plan (1) Hypercalcemia Current Visit: Yes Status: Acute Priority: High Code(s): E83.52 - HYPERCALCEMIA SNOMED Code(s): 67953860 (2) [place] light chain myeloma Current Visit: Yes Status: Acute Priority: High Code(s): C90.00 - MULTIPLE MYELOMA NOT HAVING ACHIEVED REMISSION SNOMED Code(s): 704608141 (3) New onset atrial fibrillation Current Visit: Yes Status: Acute Code(s): I48.91 - UNSPECIFIED ATRIAL FIBRILLATION SNOMED Code(s): 30612398 Plan: 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 -Completed 7 cycles of RVD in May 2024 achieving very good partial response with 99% reduction in kappa light chain -Had been on maintenance Revlimid 10 mg daily, which he stopped taking September 2024 for unclear reasons, he then developed progressive disease and symptoms of weakness, MICKEY, anemia, and thrombocytopenia -Admitted with failure to thrive with weakness, dehydration -CTA ruled out PE but reported pleural-based nodules with large right sided pleural effusion, peritoneal carcinomatosis, and retroperitoneal lymphadenopathy -720cc Right-sided thoracentesis performed, post procedure pneumo, thoravent placed. -Cytology positive for plasma cell myeloma -Urine kappa/lambda ratio elevated at 60.4, UPEP positive for monoclonal protein. Concern there is multi-organ involvement of his myeloma. Typically m yeloma is rather chemo sensitive and can achieve a quick response. Also, pt responded very well to previous regimen. Discussed with family about initiating CyBorD inpatient to try to achieve disease control. They were agreeable to the same -Cycle 1 of CyBorD was initiated on 12/14/2024, received day 4 of Velcade on 12/17/24. -IgG 379, due to fever and possible infection, will give IVIG for hypogamm aglobulinemia -We will continue to closely monitor course of hospitalization. MICKEY: -Kidney function has been declining during admit -Uric acid elevated at 17.5. S/p 1 dose Elitek. Uric acid now normal -Appears to be multifactorial, r/t to ATN, multiple myeloma involvement, and possible component of TLS, although TLS is rare with MM -HD has been started, kidney function improving -Nephrology following Diarrhea: -Has been noting increased watery stool in rectal tube. Stool is dark. -Tube feedings have been held, and outpt has slowed down -Continue to monitor for GI bleed, and closely monitor CBC -S/p 2 units PRBCs, hgb stable at 7.8 today from 8.1 Hypercalcemia -Noted to have calcium of 10.5 on admission -Likely multifactorial given dehydration on admission along with relapsed mu ltiple myeloma -Received IV fluids with no significant elevation in his calcium subsequently -For now, we will hold off on bisphosphonate and continue to assess calcium -If he has progressive rise in calcium, bisphosphonate can be given
--- NOTE | 2024-12-20 14:04 | P.PN ---
Subjective Progress Note Date: 12/20/24 Will continue to follow 12/18/2024 the patient is being seen for a follow-up. The patient remains intubated on mechanical ventilator. This morning, the patient on propofol running at 20 mcg/kg/min. The patient remains on assist- control mode mechanical ventilation and the patient is on a rate of 20, tidal volume of 450, FiO2 of 35% with a PEEP of 5. Blood gas showed a pH of 7.19 with a pCO2 of 43 and pO2 of 95. Chest x-ray is essentially unchanged. There is no evidence of any pneumothorax. There is a large right-sided pleural effusion and no evidence of any left-sided pleural effusion. ET tube is in a good location. The patient is producing urine output in the order of 30 to 40 cc an hour. The cardiac rhythm In the sinus. The patient did has a fecal management system in place and the patient has produced a total of 100 cc of stool every 2 hours, a total of 1 L over the past 24 hours. Stool for C. difficile has been negative. He continues to receive enteral feeding for nutritional support and the patient is on a vital high-protein at 20 to 35 cc an hour. The white cell count is at 1.3 with a hemoglobin of 7 and a platelet count of 164. Potassium level is at 5.7. BUN is 191 and the creatinine is at 5.6 and a sodium levels of 139 and potassium level is at 5.7. Nephrology on the case. Renal replacement therapy was discussed with the family and at this point they have not made the decision. The patient was started on a bicarb infusion. Afebrile. Hemodynamically stabl e. Remains on Velcade. Remains on cyclophosphamide. Remains on Decadron regarding multiple myeloma. 12/19/2024, patient is being seen in follow-up. Remains intubated on mechanical ventilator. On today's evaluation, the patient is on propofol running at 50 mcg/kg/min. Remains on control mode of mechanical ventilation at rate of 26, tidal volume of 550, FiO2 35% with a PEEP of 5. Blood gas showed a pH of 7.4 with a pCO2 33 and pO2 of 95. The patient had a follow-up chest x-ray shows a moderate to large right-sided pleural effusion, essentially stable in the ED to be seen in the location. The patient remains on a bicarb infusion at rate of 35 cc an hour. He did have some borderline hypotension yesterday and the patient is currently on norepinephrine at 0.02 mcg/kg/min. Urine output is in order of 50 cc an hour. He has fecal management system in place and the patient continues to have diarrhea with a total of 1 L of stool over the past 24 hours. At the same time, he has coffee-ground residual in the stomach. He received enteral feeding with vital HP at rate of 45 cc an hour. His cardiac rhythm is sinus and the patient has some sinus tachycardia. There is also a drop in hemoglobin down to 5.5. The white cell count is 6.8. Platelet count is at 135. BUN is 203, creatinine is 4.5, sodium is at 143 with a potassium level of 4.9. Procalcitonin level is at 0.67. The patient was given a hemodialysis catheter yesterday. 12/20/2024, the patient is being seen for a follow-up. This morning, the patient remains sedated on propofol at 10 mcg/kg/min. Noted the patient was given a sedation holiday yesterday. He was able to follow simple commands. He remains profoundly weak and lethargic. This morning, he is on assist-control mode of mechanical ventilation at rate of 26, percent blood gas with a pH of 7 point large right-sided pleural effusion. No evidence of any pneumothorax. The patient underwent hemodialysis yesterday and another session of hemodialysis to be done today. He remains in normal sinus rate of 70 cc an hour. He received a total of 2 nights of packed RBC and since then the patient is spiking a low- grade temperature. Urine output is the order of 30 to 40 cc an hour. He is currently n.p.o. suspecting a GI bleed. FMS is still in place and the stool output is dropped down to 75 cc over the past 8 hours. Remains on IV Zosyn as a broad-spectrum antibiotic coverage. Hemoglobin today is at 7.8. The white cell count 11.6 with a platelet count of 107. Sodium is at 140, potassium is at 4.4, BUN is 144 with a creatinine of 2.8 and a serum bicarb is at 23. Objective - Vital Signs Vital signs: Vital Signs Temp 100.3 F H 12/20/24 08:00 Pulse 114 H 12/20/24 08:30 Resp 26 H 12/20/24 08:30 BP 135/75 12/20/24 08:30 Pulse Ox 96 12/20/24 08:30 FiO2 35 12/20/24 08:00 Intake & Output 12/19/24 12/20/24 12/20/24 18:59 06:59 18:59 Intake Total 2797.292 1223.359 176 Output Total 3005 1460 85 Balance -207.708 -236.641 91 Weight 82.9 kg Intake: IV 39 33 6 0.9 pressure bag 39 33 6 Intake, IV Titration 4511.236 0911.359 170 Amount Dextrose 5% in Water 1, 900 75 000 ml @ 75 mls/hr IV . [id number] [facility] with Sodium Bicarb (1 Meq/ml) 150 ml Rx#:[id number] Norepinephrine 4 mg In 182.708 258.525 Sodium Chloride 0.9% 250 ml @ 0.03 MCG/KG/MIN 9. 464 mls/hr IV .Q24H [facility] Rx#:[id number] Piperacillin-Tazobactam 3 100 100 100 .375 gm In Sodium Chloride 0.9% 100 ml @ 25 mls/hr IVPB Q12H [facility] Rx# :[id number] Sodium Chloride 0.9% 1, 630 70 000 ml @ 70 mls/hr IV . [id number] [facility] Rx#:[id number] propofoL 1,000 mg In 83.584 66.834 Empty Bag 1 bag @ 15 MCG/ KG/MIN 7.614 mls/hr IV . [id number] [facility] Rx#:[id number] Oral 0 0 Tube Feeding 135 Blood Product 577 Rc As-1 Unit 0 [id number] Rc Pheresis 2 As3 Unit 285 [id number] Rc Pheresis As-3 Unit 292 [id number] Hemodialysis 750 Other 30 60 Output: Gastric Drainage 200 450 Urine 1355 935 85 Stool 700 Urine/Stool Mix 75 Hemodialysis 450 Hemodialysis Net Amount 300 Other: Voiding Method Indwelling Catheter Indwelling Catheter ABP, PAP, CO, CI - Last Documented Arterial Blood Pressure 111/44 - Exam The patient appeared well nourished and normally developed. Vital signs as documented. The patient remains intubated on mechanical ventilator. The patient is sedated with propofol. Head exam is unremarkable. No scleral icterus or corneal arcus noted. Neck is without jugular venous distension, thyromegaly, or carotid bruits. Carotid upstrokes are brisk bilaterally. Orogastric and orotracheal tube are both in place. Lungs irregular breathing and diminished breath sound right compared to the left related to pleural effusion. Cardiac exam reveals the PMI to be normally sized and situated. Rhythm is regular. First and second heart sounds normal. No murmurs, rubs or gallops. Abdominal exam reveals normal bowel sounds, no masses, no organomegaly and no aortic enlargement. Extremities are edematous and both femoral and pedal pulses are normal. The pulses in general are diminished and the extremities are edematous. Examination of the skin revealed no evidence of significant rashes, suspicious appearing nevi or other concerning lesions. Neurologically, the patient is sedated, unable to communicate , Withdraws only to deep painful stimulation. - Labs CBC & Chem 7: 12/20/24 05:14 12/20/24 05:14 Labs: Abnormal Lab Results - Last 24 Hours (Table) 12/19/24 12/19/24 12/19/24 Range/Units 06:00 06:00 11:20 WBC (3.8-10.6) k/uL RBC (4.30-5.90) m/uL Hgb (13.0-17.5) gm/dL Hct (39.0-53.0) % RDW (11.5-15.5) % Plt Count (150-450) k/uL Neutrophils # (1.3-7.7) k/uL Lymphocytes # (1.0-4.8) k/uL ABG pH (7.35-7.45) ABG pCO2 (35-45) mmHg ABG O2 Saturation (94-97) % Hemoglobin (13.0-17.5) gm/dL BUN (9-20) mg/dL Creatinine (0.66-1.25) mg/dL Glucose (74-99) mg/dL POC Glucose (mg/dL) 154 H (70-110) mg/dL Calcium (8.4-10.2) mg/dL Procalcitonin 0.67 H (0.02-0.50) ng/mL IgG (700.0-1600.0) mg/dL IgM (40.0-280.0) mg/dL Crossmatch See Detail 12/19/24 12/19/24 12/19/24 Range/Units 13:12 13:12 17:28 WBC 11.1 H (3.8-10.6) k/uL RBC 2.06 L 2.53 L (4.30-5.90) m/uL Hgb 6.8 L* 8.1 L (13.0-17.5) gm/dL Hct 20.2 L 24.4 L (39.0-53.0) % RDW 17.5 H 18.1 H (11.5-15.5) % Plt Count 124 L 108 L (150-450) k/uL Neutrophils # 9.9 H (1.3-7.7) k/uL Lymphocytes # 0.4 L 0.4 L (1.0-4.8) k/uL ABG pH (7.35-7.45) ABG pCO2 (35-45) mmHg ABG O2 Saturation (94-97) % Hemoglobin (13.0-17.5) gm/dL BUN (9-20) mg/dL Creatinine (0.66-1.25) mg/dL Glucose (74-99) mg/dL POC Glucose (mg/dL) 166 H (70-110) mg/dL Calcium (8.4-10.2) mg/dL Procalcitonin (0.02-0.50) ng/mL IgG (700.0-1600.0) mg/dL IgM (40.0-280.0) mg/dL Crossmatch 12/19/24 12/19/24 12/19/24 Range/Units 17:47 18:32 18:32 WBC (3.8-10.6) k/uL RBC (4.30-5.90) m/uL Hgb (13.0-17.5) gm/dL Hct (39.0-53.0) % RDW (11.5-15.5) % Plt Count (150-450) k/uL Neutrophils # (1.3-7.7) k/uL Lymphocytes # (1.0-4.8) k/uL ABG pH (7.35-7.45) ABG pCO2 (35-45) mmHg ABG O2 Saturation (94-97) % Hemoglobin (13.0-17.5) gm/dL BUN 139 H* (9-20) mg/dL Creatinine 2.97 H (0.66-1.25) mg/dL Glucose 155 H (74-99) mg/dL POC Glucose (mg/dL) 172 H (70-110) mg/dL Calcium 8.3 L (8.4-10.2) mg/dL Procalcitonin (0.02-0.50) ng/mL IgG 379.0 L (700.0-1600.0) mg/dL IgM <35.0 L (40.0-280.0) mg/dL Crossmatch 12/19/24 12/19/24 12/20/24 Range/Units 20:25 23:59 04:08 WBC (3.8-10.6) k/uL RBC (4.30-5.90) m/uL Hgb (13.0-17.5) gm/dL Hct (39.0-53.0) % RDW (11.5-15.5) % Plt Count (150-450) k/uL Neutrophils # (1.3-7.7) k/uL Lymphocytes # (1.0-4.8) k/uL ABG pH 7.48 H (7.35-7.45) ABG pCO2 31 L (35-45) mmHg ABG O2 Saturation 98.5 H (94-97) % Hemoglobin 7.6 L (13.0-17.5) gm/dL BUN (9-20) mg/dL Creatinine (0.66-1.25) mg/dL Glucose (74-99) mg/dL POC Glucose (mg/dL) 163 H 147 H (70-110) mg/dL Calcium (8.4-10.2) mg/dL Procalcitonin (0.02-0.50) ng/mL IgG (700.0-1600.0) mg/dL IgM (40.0-280.0) mg/dL Crossmatch 12/20/24 12/20/24 12/20/24 Range/Units 05:12 05:14 05:14 WBC 11.6 H (3.8-10.6) k/uL RBC 2.37 L (4.30-5.90) m/uL Hgb 7.8 L (13.0-17.5) gm/dL Hct 22.9 L (39.0-53.0) % RDW 17.5 H (11.5-15.5) % Plt Count 107 L (150-450) k/uL Neutrophils # 10.1 H (1.3-7.7) k/uL Lymphocytes # 0.6 L (1.0-4.8) k/uL ABG pH (7.35-7.45) ABG pCO2 (35-45) mmHg ABG O2 Saturation (94-97) % Hemoglobin (13.0-17.5) gm/dL BUN 144 H* (9-20) mg/dL Creatinine 2.85 H (0.66-1.25) mg/dL Glucose 125 H (74-99) mg/dL POC Glucose (mg/dL) 148 H (70-110) mg/dL Calcium (8.4-10.2) mg/dL Procalcitonin (0.02-0.50) ng/mL IgG (700.0-1600.0) mg/dL IgM (40.0-280.0) mg/dL Crossmatch Microbiology - Last 24 Hours (Table) 12/18/24 12:40 Blood Culture - Preliminary Blood Assessment and Plan Plan: Acute hypoxemic and hypercapnic respiratory failure, multifactorial, requiring intubation, and mechanical ventilation, on December 12, 2024. The patient has a large right-sided pleural effusion. Oxygenation is stable while being on mechanical ventilator. Chest x-ray remains unchanged on today's evaluation. No evidence of any pneumothorax. Blood gas from today showing atrial flutter respiratory alkalosis S/P right sided thoracentesis, with a right-sided iatrogenic pneumothorax, recovered. Pleural fluid was exudative and there is reaccumulation of the rig ht-sided pleural effusion S/P right Thora vent placement, with removal on December 12, 2024. Multiple myeloma, relapsed high 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, the patient completed 7 cycles of RVD in May 2024 achieving very good partial response with 99% reduction in kappa light chain. The patient has been on maintenance Revlimid 10 mg daily, which he stopped taking September 2024 for unclear reasons, and the patient is currently on Revlimid, Cytoxan and Decadron. Anion gap metabolic acidosis, secondary to renal failure, improved with bicarb infusion, currently on normal saline at rate of 75 cc an hour Hyperkalemia, improved Acute on chronic anemia with questionable upper GI source of bleeding as the patient has some coffee-ground gastric material.. FMS still in place.the patient is currently NPO. Transfused with a total of 2 L of packed RBCs Tumor lysis syndrome, improved Acute kidney injury with bilateral hydronephrosis, and significantly worsening renal function. The patient was started on hemodialysis. Received the first session of hemodialysis on 12/19/2024 and another session is to follow Hypercalcemia, resolved. Chronic anemia. Hypertension. History of hyperlipidemia. History of obstructive sleep apnea syndrome, maintained on home CPAP. Diarrhea, and the patient has a fecal management system in place Plan: Give the patient a sedation holiday Continue ventilator support, and dropped respiratory rate down to 20. Keep the rest of the ventilator settings unchanged. Change IV fluids to KVO Dialysis catheter has been inserted and the patient received first session of hemodialysis yesterday another session is to follow Titrate norepinephrine and patient is currently on a low-dose Continue empiric antibiotic coverage with IV Zosyn Transfused with a unit of packed RBC Discontinue Pepcid and put the patient on IV Protonix 40 mg every 24 hours Keep tube feeds on hold Nephrology on the case Hematology oncology is on the case Prognosis remains poor based on above-mentioned comorbidities. Will continue to follow make further recommendations based on his progress. Critical care evaluation, 33 minutes. Time with Patient: Greater than 30
[2024-12-20] MEDS: PIPERACILLIN-TAZOBACTAM 3.375 GM in SODIUM CHLORIDE 0.9% 100 ML IVPB SCH (14:35)
[2024-12-20 17:51] LABS: Glucose,Whole Blood 130 mg/dL (70-110)
[2024-12-20] MEDS: FUROSEMIDE 10 MG/ML 10 ML VIAL IV STA (23:23)
[2024-12-20 23:28] LABS: Glucose,Whole Blood 123 mg/dL (70-110)
[2024-12-21 05:07] LABS: Glucose,Whole Blood 119 mg/dL (70-110)
[2024-12-21 05:15] LABS: Anisocytosis Slight; Basophils % (A) 0 %; Eosinophils # (A) 0.1 k/uL (0-0.7); Eosinophils % (A) 1 %; HCT 20.7 % (39.0-53.0); Lymphocytes # (A) 0.5 k/uL (1.0-4.8); Lymphocytes % (A) 5 %; MCH 33.1 pg (25.0-35.0); MCV 97.2 fL (80.0-100.0); Macrocytosis Slight; Mean Platelet Volume 12.3; Monocytes # (A) 0.6 k/uL (0-1.0); Monocytes % (A) 6 %; Neutrophils # (A) 9.2 k/uL (1.3-7.7); Neutrophils % (A) 88 %; RBC 2.13 m/uL (4.30-5.90); RDW 17.4 % (11.5-15.5); WBC 10.6 k/uL (3.8-10.6)
[2024-12-21 05:17] LABS: ABG Base Excess -0.6 mmol/L; ABG HCO3 23 mmol/L (21-25); ABG Oxygen Saturation 98.4 % (94-97); ABG PCO2 33 mmHg (35-45); ABG PH 7.45 (7.35-7.45); ABG PO2 102 mmHg (83-108); ABG TCO2 24 mmol/L (19-24)
[2024-12-21 05:19] LABS: Allen Test Performed? no
[2024-12-21 05:55] LABS: Anion Gap 14 mmol/L; Calcium 8.1 mg/dL (8.4-10.2); Carbon Dioxide 22 mmol/L (22-30); Chloride 101 mmol/L (98-107); Glucose 105 mg/dL (74-99); Sodium 137 mmol/L (137-145)
[2024-12-21 05:56] LABS: Potassium 4.4 mmol/L (3.5-5.1)
[2024-12-21 06:01] LABS: African American GFR (CKD) 24 (>60 ml/min/1.73 sqM); Non-African American GFR(CKD) 21 (>60 ml/min/1.73 sqM)
[2024-12-21 06:08] LABS: Blood Urea Nitrogen 103 mg/dL (9-20)
--- NOTE | 2024-12-21 06:11 | P.PN ---
Subjective Progress Note Date: 12/20/24 patient is 79-year-old gentleman with past medical history significant for multiple myeloma, hypertension, hyperlipidemia presented to the ER because of abnormal labs. Patient normally sees Dr. Broderick and was on systemic treatment which apparently had stopped taking. Patient had blood work drawn outpatient and was told by the stone splitter to come to the ER. Patient states over the last couple of days he has been having increasing shortness of breath. Shortness of breath was present at rest as on exertion. Patient was complaining of being lethargic and weakness. Patient also complaining of productive cough with occasional episodes of hemoptysis. Denies any chest pain. There is no complaint of fever or chills. There is no complaint of orthopnea or PND. Patient denies any nausea, vomiting, pain. Patient denies any lightheaded or dizziness. Initial lab work done in the ER showed WBC 3.8, hemoglobin 9, platelet count 134 sodium 142, potassium 4, BUN 40, creatinine 1.40 glucose 103, lactate 1.2, calcium 10.5, magnesium 1.4 bilirubin 0.7, AST 27, ALT 11, troponin 0.018, proBNP 1550 Influenza A not detected Influenza B not detected RSV not detected COVID-19 not detected EKG done in the ER showed heart rate of , no ST segment elevation or depression seen, no T-wave inversions seen. Chest x-ray done in the ER showed patchy infiltrative opacity throughout the right lung with small to moderate size right pleural effusion. Questionable air-fluid level versus overlying skinfold is indeterminate for cavitary lesion or abscess. Recommend CT chest for further evaluation, consolidation in the left lung apex CT chest PE protocol done showed no definite acute PE within the vasculature, significant progression of metastatic disease with numerous pleural-based metastatic deposits and involvement of the left-sided ribs additionally there is peritoneal carcinomatosis in the partially visualized upper abdomen. Patient admitted to internal medicine service 12/07. Patient seen and examined. Status post right-sided thoracentesis with removal of 720 cc of fluid. Blood work done today showed WBC 4.9, hemoglobin 8.8, platelet count 138, sodium 143, potassium 4.1, BUN 33, creatinine 1.74, calcium 9.7 Patient had right-sided Thora vent placed this morning. Currently on 4 L of oxy gen. 12/08. Patient seen and examined. Vital signs done this morning showedTemp 98, heart rate 98, respirations 30, blood pressure 125/84, currently on 2 L of oxygen. Denies any shortness of breath at rest. Currently has a Thora vent in place. Chest x-ray done this morning shows right-sided pleural effusion, right- sided chest tube in place with residual pneumothorax. 12/09. Old male patient currently sleeping, he was agitated and restless overnight and he was prescribed Seroquel 25 mg which made him calm He still tachypneic with a breathing rate around 28, he is saturating high 90s on 3 L oxygen via nasal cannula Hemoglobin slightly trending down to 7.7 and creatinine up to 1.9 His proBNP is 1550 and procalcitonin negative at 0.16 Chest x-ray reviewed by myself showing right more than left infiltrate but looks better than 2 days ago Renal ultrasound showing no hydronephrosis finger right renal cyst He is currently kept on Zosyn. On home dose of Eliquis 2.5 mg. He had pneumothorax on the right side status post Thora vent, currently he has minimal discharge from his right Thora vent 12/10 Patient moved out of the ICU to select unit He is more awake today but still confused, he was trying to pull out his lines and Thora vent. He is mildly tachypneic with talking. He can tell he is in the hospital but also still mildly confused. Serevent was Today. Repeat chest x-ray showing mild improvement in the right pneumothorax, I reviewed the chest x-ray by myself. He remains on Zosyn and home dose of Eliquis 2.5 Will going to add small dose of Seroquel 12.5. 12/11 Patient more awake trying to talk Still feel short of breath although slightly better than yesterday, breathing r ate around 22 compared to 28 yesterday, his right upper chest Thora vent is in place and capped Repeat chest x-ray this morning showing right pleural effusion more than left with pulmonary vascular congestion suspicious for CHF. Currently patient off IV fluid He is on Zosyn and Eliquis 2.5 mg. 12/12 Patient in the morning was awake and alert but slightly agitated, he had a sitter at bedside. Thora vent was taken out after it was capped yesterday. His mentation was getting worse through the day and he became more tachypneic and tachycardic and he has to be placed on BiPAP. Repeat chest x-ray showing moderate to large right pleural effusion and evidence of CHF. Patient was moved to the ICU for more monitoring pH was 7.2 worsening to intelligence support officer to 7.08 and pCO2 was elevated at 58 wor sened to 92. Creatinine also worsened up to 2.7 and sodium 146., With worsening breathing patient had to be intubated and placed on mechanical ventilation 12/13 Patient remains in the ICU intubated and sedated His breathing more quiet today. Abdomen soft Hemoglobin dropped to 7.0. Platelet count stable at 139, creatinine stable or slightly improved 2.7 down to 2.6. Patient placed on normal saline 75 mL/h. 12/14 Patient remains intubated and sedated He does not need pressors and Zosyn was discontinued He received some IV fluid Chest x-ray still showing pulmonary vascular congestion Pathology from pleural fluid came back positive for malignancy Sister and at bedside, oncology team discussing the case with them. Patient still at risk. 12/15 Patient remains intubated on mechanical ventilation in the ICU Family yesterday discussed the case with oncology team and patient remains full code and he was started on chemotherapy. Imodium can be stopped Chest x-ray showing persistent right-sided infiltrate most likely secondary to fluid and malignancy. Prognosis remains guarded and patient still high risk 12/16 Patient remains intubated and sedated Patient has no events overnight He was getting chemotherapy No IV fluid, no antibiotic chest tube feeding, he got 1 dose of 80 mg of Lasix yesterday He has good urine output of about 15 to 20 mL/h Also has low-grade temperature 100.2 yesterday and 9.9 today. Repeat chest x-ray showing CHF for right pleural effusion which is malignant p leural effusion Patient continue to get chemotherapy through tomorrow Patient has negative C. diff test 12/17 Patient still getting chemotherapy His creatinine gets worse and he has hemodialysis catheter placed in He remains intubated in the ICU on mechanical ventilation Breathing rate about 27 Creatinine worse at 5.0. Phosphorus 12.7. Glucose controlled. pH 7.23 12/18 Patient remains in the ICU intubated and sedated. Patient is today finished his chemotherapy per oncology team. Today he is not getting chemotherapy there is another cycle in order for chemotherapy on 12/21. However patient today developing worsening hypotension requiring Levophed and also started on sodium bicarb. Potassium and creatinine trending up, currently 5.6 with a plan for hemodialysis per teacher adventure education. Hemoglobin 7.0. Leukocytosis is increased but pH is low at 7.1. Chest x-ray showing same malignant pleural effusion. Prognosis tomy guarded 12/19/2024 Patient is seen in follow-up today continues in the ICU with multiple consultations following maintained on mechanical ventilation. Kidney functions are worsening with nephrology following and vascular surgery was consulted and dialysis catheter was placed. Patient scheduled to undergo hemodialysis today. Patient continues on pressor support which is being weaned and overall prognosis remains significantly guarded. Hemoglobin is stable today and being given a unit of PRBC. Will follow-up on repeat labs and monitor closely. 12/20/2024 Patient is seen and evaluated in the ICU continues to be on mechanical ventilation FiO2 is 35% with a PEEP of 5. Patient is undergoing sedation holidays and currently not following commands. Patient is receiving hemodialysis and kidney functions are improving although BUN remains elevated. Patient will receive dialysis again. Patient is making urine. Patient does have fecal management system and recommend C. difficile although stool was noted to be black and loose. Prognosis is extremely guarded at this time. Review of systems: Unable to obtain as patient is on mechanical ventilation and sedated Active Medications Acetaminophen (Acetaminophen Tab 325 Mg Tab) 650 mg PO Q6HR PRN PRN Reason: Fever and/ or Pain Last Admin: 12/20/24 08:29 Dose: 650 mg Albuterol/Ipratropium (Ipratropium-Albuterol 3 Ml Neb) 3 ml INHALATION RT-Q4H [facility] Last Admin: 12/21/24 04:44 Dose: 3 ml Amiodarone HCl (Amiodarone 200 Mg Tab) 200 mg PO BID [facility] Last Admin: 12/20/24 21:33 Dose: 200 mg Bortezomib (Bortezomib 3.5 Mg Vial) 2.75 mg SQ ONCE ONE Stop: 12/21/24 14:01 Bortezomib (Bortezomib 3.5 Mg Vial) 2.75 mg SQ ONCE ONE Stop: 12/24/24 14:01 Chlorhexidine Gluconate (Chlorhexidine Gluconate 15 Ml Cup) 15 ml MUCOUS MEM BID [facility] Last Admin: 12/20/24 21:32 Dose: 15 ml Dexamethasone (Dexamethasone 4 Mg Tab) 40 mg PO DAILY [facility] Stop: 12/25/24 09:01 Dexamethasone (Dexamethasone 4 Mg Tab) 40 mg PO DAILY [facility] Stop: 01/02/25 09:01 Dextrose/Water (Dextrose 50% Syringe 50 Ml) 25 ml IVP PER PROTOCOL PRN; Protocol PRN Reason: Hypoglycemia Dextrose/Water (Dextrose 50% Syringe 50 Ml) 50 ml IVP PER PROTOCOL PRN; Protocol PRN Reason: Hypoglycemia Hydromorphone HCl (Hydromorphone 1 Mg/Ml 1 Ml Syringe) 1 mg IVP Q4HR PRN PRN Reason: Pain Last Admin: 12/19/24 05:20 Dose: 1 mg Propofol 1,000 mg/ IV Solution 100 mls @ 7.614 mls/hr IV .Q13H9M [facility]; Protocol Last Admin: 12/21/24 05:49 Dose: 10 mcg/kg/min, 5.076 mls/hr Cyclophosphamide 600 mg/ (Sodium Chloride) 253 mls @ 506 mls/hr IV Q7D [facility] Stop: 01/04/25 14:29 Last Admin: 12/14/24 14:36 Dose: 506 mls/hr Ondansetron HCl 16 mg/ Sodium (Chloride) 58 mls @ 232 mls/hr IVPB Q7D [facility] Stop: 01/04/25 13:14 Last Admin: 12/14/24 13:38 Dose: 232 mls/hr Norepinephrine Bitartrate 4 mg (/ Sodium Chloride) 254 mls @ 9.464 mls/hr IV .Q24H [facility]; Protocol Last Titration: 12/21/24 02:53 Dose: 0.04 mcg/kg/min, 12.619 mls/hr Piperacillin Sod/Tazobactam (Sod 3.375 gm/ Sodium Chloride) 100 mls @ 25 mls/hr IVPB Q8H [facility]; Protocol Last Admin: 12/21/24 05:49 Dose: 25 mls/hr Insulin Human Lispro (Insulin Lispro (Humalog) 100 Unit/Ml 10 Ml Vl) 0 unit SQ Q6H [facility]; Protocol Last Admin: 12/21/24 05:44 Dose: Not Given Metoclopramide HCl (Metoclopramide 5 Mg/Ml 2 Ml Vial) 10 mg IVP Q6HR [facility] Last Admin: 12/21/24 05:49 Dose: 10 mg Metoprolol Tartrate (Metoprolol Tartrate 50 Mg Tab) 50 mg PO DAILY [facility] Last Admin: 12/20/24 08:23 Dose: 50 mg Miscellaneous Information (Pneumonia Protocol Utilized 1 Each Misc) 1 each PO ONCE PRN PRN Reason: Per Protocol Miscellaneous Information (Potassium Replacement Protocol 1 Each Misc) 1 each MISCELLANE DAILY PRN; Protocol PRN Reason: Per Protocol Miscellaneous Information (Magnesium Replacement Protocol 1 Each Misc) 1 each MISCELLANE DAILY PRN; Protocol PRN Reason: Per Protocol Naloxone HCl (Naloxone 0.4 Mg/Ml 1 Ml Vial) 0.2 mg IV Q2M PRN PRN Reason: Opioid Reversal Pantoprazole Sodium (Pantoprazole 40 Mg/10 Ml Vial) 40 mg IVP DAILY [facility] Last Admin: 12/20/24 08:23 Dose: 40 mg Physical exam: GENERAL: The patient is a 79-year-old male who is alert and oriented x 0, currently undergoing sedation trial and is opening eyes although not following commands, maintained on mechanical ventilation with an FiO2 of 35% and PEEP is 5, well-developed, elderly appearing, ill-appearing HEENT: Pupils are round and equally reacting to light. EOMI. No scleral icterus. No conjunctival pallor. Normocephalic, atraumatic. No pharyngeal erythema. No thyromegaly. CARDIOVASCULAR: S1 and S2 muffled PULMONARY: Chest is clear to auscultation, no wheezing , no crackles. Tachypneic, decreased breath sounds on the right side ABDOMEN: Soft, nontender, nondistended, normoactive bowel sounds. No palpable organomegaly. MUSCULOSKELETAL: No joint swelling or deformity. EXTREMITIES: No cyanosis, clubbing, or pedal edema. NEUROLOGICAL: Gross neurological examination did not reveal any focal deficits. Diffusely weak SKIN: No rashes. no petechiae. Assessment: Acute hypoxic respiratory failure required intubation and mechanical ventilation Malignant large pleural effusion status post thoracocentesis. On 12/13 has breathing that worsened because of CHF and large pleural effusion and patient has to be placed on mechanical ventilation. Pathology sample came back positive for malignant cells Iatrogenic right pneumothorax status post Thora vent placement, which was removed on 12/13 Possible septic shock Acute kidney injury with worsening kidney functions, status post dialysis catheter placement and is now on hemodialysis as of 12/19/2024 Multiple myeloma, s/p chemotherapy 12/15-12/17 Hypercalcemia Chronic anemia Hypertension Hyperlipidemia Obstructive sleep apnea A-fib and RVR GI prophylaxis DVT prophylaxis Full code Plan: Continue patient care in the ICU with multiple consultations following maintained on mechanical ventilation, undergoing sedation trials and is opening eyes although not following commands Started chemotherapy on 12/15-12/17. Another plan of chemotherapy is planned on 12/21 which may be held Started on Levophed and sodium bicarb, weaning as tolerated, Levophed has been Patient with worsening kidney functions per nephrology, vascular surgery placed temporary dialysis catheter and is undergoing hemodialysis with titration. Tolerating thus far. Patient continues to make urine and does have an indwelling Escobar catheter and recommend to monitor intake and output closely. Continue with intubation and mechanical ventilation as per pulmonary/critical care team On Lasix per teacher adventure education Antibiotics were discontinued per pulmonary Family to discuss the need for tracheostomy and PEG tube in the near future Due to multiple complex medical issues, overall prognosis is extremely guarded at this time The impression and plan of care has been dictated by Mildred Goff, Nurse Consuelo cortez as directed. Dr. Keith MD I have performed a history and examination and MDM of this patient, discussed the same with the dictator, and agree with the dictator's assessment and plan as written ,documented as a scribe. Based on total visit time, I have performed more than 50% of the visit. Objective - Vital Signs Vital signs: Vital Signs Temp 99.1 F 12/21/24 03:00 Pulse 107 H 12/21/24 05:30 Resp 21 12/21/24 05:30 BP 126/70 12/21/24 04:15 Pulse Ox 97 12/21/24 05:30 FiO2 35 12/21/24 05:30 Intake & Output 12/20/24 12/20/24 12/21/24 06:59 18:59 06:59 Intake Total 9942.682 5488.036 543.900 Output Total 1460 4335 625 Balance -236.641 -3024.964 -81.100 Weight 82.9 kg 80.1 kg Intake: IV 33 291 198 .9 KVO 45 165 0.9 pressure bag 33 36 33 Sodium Chloride 0.9% 1, 210 000 ml @ 70 mls/hr IV . [id number] [facility] Rx#:[id number] Intake, IV Titration 1130.359 419.036 285.900 Amount Dextrose 5% in Water 1, 75 000 ml @ 75 mls/hr IV . [id number] [facility] with Sodium Bicarb (1 Meq/ml) 150 ml Rx#:[id number] Norepinephrine 4 mg In 258.525 192.015 128.287 Sodium Chloride 0.9% 250 ml @ 0.03 MCG/KG/MIN 9. 464 mls/hr IV .Q24H [facility] Rx#:[id number] Piperacillin-Tazobactam 3 100 100 .375 gm In Sodium Chloride 0.9% 100 ml @ 25 mls/hr IVPB Q12H [facility] Rx# :[id number] Piperacillin-Tazobactam 3 100 .375 gm In Sodium Chloride 0.9% 100 ml @ 25 mls/hr IVPB Q8H [facility] Rx#: [id number] Sodium Chloride 0.9% 1, 630 70 000 ml @ 70 mls/hr IV . [id number] [facility] Rx#:[id number] propofoL 1,000 mg In 66.834 57.021 57.613 Empty Bag 1 bag @ 15 MCG/ KG/MIN 7.614 mls/hr IV . Q13H9M [facility] Rx#:[id number] Oral 0 0 0 Hemodialysis 600 Other 60 60 Output: Gastric Drainage 450 500 400 Urine 935 635 175 Stool 50 Urine/Stool Mix 75 Hemodialysis 1900 Hemodialysis Net Amount 1300 Other: Voiding Method Indwelling Catheter Indwelling Catheter Indwelling Catheter ABP, PAP, CO, CI - Last Documented Arterial Blood Pressure 135/51 - Labs CBC & Chem 7: 12/21/24 05:02 12/20/24 05:14 Labs: Abnormal Lab Results - Last 24 Hours (Table) 12/20/24 12/20/24 12/20/24 Range/Units 11:50 17:49 23:25 RBC (4.30-5.90) m/uL Hgb (13.0-17.5) gm/dL Hct (39.0-53.0) % RDW (11.5-15.5) % ABG pCO2 (35-45) mmHg ABG O2 Saturation (94-97) % Hemoglobin (13.0-17.5) gm/dL POC Glucose (mg/dL) 140 H 130 H 123 H (70-110) mg/dL 12/21/24 12/21/2412/21/25 Range/Units 04:43 05:02 05:05 RBC 2.13 L (4.30-5.90) m/uL Hgb 7.0 L (13.0-17.5) gm/dL Hct 20.7 L (39.0-53.0) % RDW 17.4 H (11.5-15.5) % ABG pCO2 33 L (35-45) mmHg ABG O2 Saturation 98.4 H (94-97) % Hemoglobin 6.8 L* (13.0-17.5) gm/dL POC Glucose (mg/dL) 119 H (70-110) mg/dL Microbiology - Last 24 Hours (Table) 12/18/24 12:40 Blood Culture - Preliminary Blood
[2024-12-21 06:28] LABS: Platelet Count 85 k/uL (150-450)
--- NOTE | 2024-12-21 08:15 | XR ---
EXAMINATION TYPE: XR chest 1V portable DATE OF EXAM: 12/21/2024 5:34 AM COMPARISON: Chest radiograph from one day prior. CLINICAL INDICATION: Male, 79 years old with history of ICU, intubation; [facility] TECHNIQUE: XR chest 1V portable Frontal view of the chest. FINDINGS: Prominent skinfold folds throughout the left thorax lung markings are seen beyond this. Lungs/Pleura: Blunting of the right costophrenic angle. There is no evidence of left pleural effusio n, focal consolidation, or pneumothorax Pulmonary vascularity: Unremarkable. Heart/mediastinum: Cardiomediastinal silhouette is unremarkable. Musculoskeletal: No acute osseous pathology. Other findings: None Lines/Tubes: Endotracheal tube with distal tip 5.1 cm above the cleve. Nasogastric tube with its distal tip and side-port projecting under the diaphragm. IMPRESSION: 1. Layering right pleural effusion and airspace opacities.. 2. Endotracheal tube in satisfactory position. [facility], , 12/21/2024 8:13 AM
--- NOTE | 2024-12-21 11:09 | P.PN ---
Subjective Patient is seen for follow-up for acute kidney injury. Patient is intubated, FiO2 at 35%. He is awake and following commands. Started hemodialysis on 12/19/2024 for oliguric acute kidney injury and hyperkalemia Urine output at 10-25 cc/h Maintained on low-dose Levophed Objective - Vital Signs Vital signs: Vital Signs Temp 98.9 F 12/21/24 09:00 Pulse 101 H 12/21/24 09:00 Resp 20 12/21/24 09:00 BP 125/70 12/21/24 08:15 Pulse Ox 97 12/21/24 09:00 FiO2 35 12/21/24 07:58 Intake & Output 12/20/24 12/21/24 12/21/24 18:59 06:59 18:59 Intake Total 1310.036 709.116 94.216 Output Total 4335 740 88 Balance -3024.964 -30.884 6.216 Weight 80.1 kg Intake: IV 291 216 77 .9 KVO 45 180 65 0.9 pressure bag 36 36 12 Sodium Chloride 0.9% 1, 210 000 ml @ 70 mls/hr IV . [id number] [facility] Rx#:[id number] Intake, IV Titration 419.036 433.116 17.216 Amount Norepinephrine 4 mg In 192.015 175.503 Sodium Chloride 0.9% 250 ml @ 0.03 MCG/KG/MIN 9. 464 mls/hr IV .Q24H [facility] Rx#:[id number] Piperacillin-Tazobactam 3 100 .375 gm In Sodium Chloride 0.9% 100 ml @ 25 mls/hr IVPB Q12H [facility] Rx# :[id number] Piperacillin-Tazobactam 3 200 .375 gm In Sodium Chloride 0.9% 100 ml @ 25 mls/hr IVPB Q8H [facility] Rx#: [id number] Sodium Chloride 0.9% 1, 70 000 ml @ 70 mls/hr IV . [id number] [facility] Rx#:[id number] propofoL 1,000 mg In 57.021 57.613 17.216 Empty Bag 1 bag @ 15 MCG/ KG/MIN 7.614 mls/hr IV . Q13H9M [facility] Rx#:[id number] Oral 0 0 0 Tube Feeding 0 Hemodialysis 600 Other 60 Output: Gastric Drainage 500 500 Urine 635 190 88 Stool 50 Hemodialysis 1900 Hemodialysis Net Amount 1300 Other: Voiding Method Indwelling Catheter Indwelling Catheter ABP, PAP, CO, CI - Last Documented Arterial Blood Pressure 103/46 - Exam Patient is intubated and on the vent. Follows commands Examination of the heart S1 and S2 Examination of the lungs bilateral breath sounds are heard Abdomen is soft nontender Examination of lower extremities shows 1+ edema - Labs CBC & Chem 7: 12/21/24 05:02 12/21/24 05:02 Labs: Abnormal Lab Results - Last 24 Hours (Table) 12/20/24 12/20/24 12/20/24 Range/Units 11:50 17:49 23:25 RBC (4.30-5.90) m/uL Hgb (13.0-17.5) gm/dL Hct (39.0-53.0) % RDW (11.5-15.5) % Plt Count (150-450) k/uL Neutrophils # (1.3-7.7) k/uL Lymphocytes # (1.0-4.8) k/uL ABG pCO2 (35-45) mmHg ABG O2 Saturation (94-97) % Hemoglobin (13.0-17.5) gm/dL BUN (9-20) mg/dL Creatinine (0.66-1.25) mg/dL Glucose (74-99) mg/dL POC Glucose (mg/dL) 140 H 130 H 123 H (70-110) mg/dL Calcium (8.4-10.2) mg/dL 12/21/24 12/21/24 12/21/24 Range/Units 04:43 05:02 05:02 RBC 2.13 L (4.30-5.90) m/uL Hgb 7.0 L (13.0-17.5) gm/dL Hct 20.7 L (39.0-53.0) % RDW 17.4 H (11.5-15.5) % Plt Count 85 L (150-450) k/uL Neutrophils # 9.2 H (1.3-7.7) k/uL Lymphocytes # 0.5 L (1.0-4.8) k/uL ABG pCO2 33 L (35-45) mmHg ABG O2 Saturation 98.4 H (94-97) % Hemoglobin 6.8 L* (13.0-17.5) gm/dL BUN 103 H* (9-20) mg/dL Creatinine 2.75 H (0.66-1.25) mg/dL Glucose 105 H (74-99) mg/dL POC Glucose (mg/dL) (70-110) mg/dL Calcium 8.1 L (8.4-10.2) mg/dL 12/21/24 Range/Units 05:05 RBC (4.30-5.90) m/uL Hgb (13.0-17.5) gm/dL Hct (39.0-53.0) % RDW (11.5-15.5) % Plt Count (150-450) k/uL Neutrophils # (1.3-7.7) k/uL Lymphocytes # (1.0-4.8) k/uL ABG pCO2 (35-45) mmHg ABG O2 Saturation (94-97) % Hemoglobin (13.0-17.5) gm/dL BUN (9-20) mg/dL Creatinine (0.66-1.25) mg/dL Glucose (74-99) mg/dL POC Glucose (mg/dL) 119 H (70-110) mg/dL Calcium (8.4-10.2) mg/dL Microbiology - Last 24 Hours (Table) 12/18/24 12:40 Blood Culture - Preliminary Blood Assessment and Plan Assessment: 1. Acute kidney injury most likely ATN currently nonoliguric, UA is benign ultrasound does not show any evidence of obstruction. Serum creatinine 1.4 on admission and 0.8 on 07/27/2024. BUN remains significantly elevated. Urine output decreased to about 10 to 20 cc an hour. 2. Right pleural effusion status post thoracentesis with development of pneumothorax status post Thora vent with resolution of pneumothorax 3. Anemia with no active bleeding noted. Underlying history of multiple myeloma 4. Multiple myeloma being followed by Dr. Aden. Maintained on chemotherapy 5. Hypercalcemia on initial admission possibly related to hypovolemia, now improved to 9.4. Patient has had significant hypercalcemia previously most likely related to multiple myeloma in October 2023 6. Anion gap metabolic acidosis secondary to acute kidney injury 7. Hyperkalemia associated with acute kidney injury, improved with dialysis and improving urine output. Plan: Hemodialysis today Continue off of UF 1 to 1.5 L today with hemodialysis. Prognosis is guarded
[2024-12-21 11:54] LABS: Glucose,Whole Blood 113 mg/dL (70-110)
[2024-12-21 12:23] LABS: Glucose,Whole Blood 112 mg/dL (70-110)
--- NOTE | 2024-12-21 16:07 | P.PN ---
Subjective Progress Note Date: 12/21/24 Remains in ICU, ventilated. Pt is opening his eyes and responding to verbal commands. Wbc 10.6, hgb 7.0, plt 85. Chemo scheduled today after HD. Pt afebrile this morning, Continues Zosyn Objective - Vital Signs Vital signs: Vital Signs Temp 98.9 F 12/21/24 09:00 Pulse 101 H 12/21/24 09:00 Resp 20 12/21/24 09:00 BP 125/70 12/21/24 08:15 Pulse Ox 97 12/21/24 09:00 FiO2 35 12/21/24 07:58 Intake & Output 12/20/24 12/21/24 12/21/24 18:59 06:59 18:59 Intake Total 1310.036 709.116 94.216 Output Total 4335 740 88 Balance -3024.964 -30.884 6.216 Weight 80.1 kg Intake: IV 291 216 77 .9 KVO 45 180 65 0.9 pressure bag 36 36 12 Sodium Chloride 0.9% 1, 210 000 ml @ 70 mls/hr IV . [id number] [facility] Rx#:[id number] Intake, IV Titration 419.036 433.116 17.216 Amount Norepinephrine 4 mg In 192.015 175.503 Sodium Chloride 0.9% 250 ml @ 0.03 MCG/KG/MIN 9. 464 mls/hr IV .Q24H [facility] Rx#:[id number] Piperacillin-Tazobactam 3 100 .375 gm In Sodium Chloride 0.9% 100 ml @ 25 mls/hr IVPB Q12H [facility] Rx# :[id number] Piperacillin-Tazobactam 3 200 .375 gm In Sodium Chloride 0.9% 100 ml @ 25 mls/hr IVPB Q8H [facility] Rx#: [id number] Sodium Chloride 0.9% 1, 70 000 ml @ 70 mls/hr IV . [id number] [facility] Rx#:[id number] propofoL 1,000 mg In 57.021 57.613 17.216 Empty Bag 1 bag @ 15 MCG/ KG/MIN 7.614 mls/hr IV . [id number] [facility] Rx#:[id number] Oral 0 0 0 Tube Feeding 0 Hemodialysis 600 Other 60 Output: Gastric Drainage 500 500 Urine 635 190 88 Stool 50 Hemodialysis 1900 Hemodialysis Net Amount 1300 Other: Voiding Method Indwelling Catheter Indwelling Catheter ABP, PAP, CO, CI - Last Documented Arterial Blood Pressure 103/46 - Constitutional General appearance: Present: average body habitus, no acute distress - EENT Eyes: Present: EOMI ENT: Present: hearing grossly normal - Respiratory Details: ventilated breath sounds - Cardiovascular Details: skin warm and dry - Integumentary Integumentary: Absent: cyanotic - Musculoskeletal Musculoskeletal: Present: generalized weakness - Labs CBC & Chem 7: 12/21/24 05:02 12/21/24 05:02 Labs: Abnormal Lab Results - Last 24 Hours (Table) 12/20/24 12/20/24 12/20/24 Range/Units 11:50 17:49 23:25 RBC (4.30-5.90) m/uL Hgb (13.0-17.5) gm/dL Hct (39.0-53.0) % RDW (11.5-15.5) % Plt Count (150-450) k/uL Neutrophils # (1.3-7.7) k/uL Lymphocytes # (1.0-4.8) k/uL ABG pCO2 (35-45) mmHg ABG O2 Saturation (94-97) % Hemoglobin (13.0-17.5) gm/dL BUN (9-20) mg/dL Creatinine (0.66-1.25) mg/dL Glucose (74-99) mg/dL POC Glucose (mg/dL) 140 H 130 H 123 H (70-110) mg/dL Calcium (8.4-10.2) mg/dL 12/21/24 12/21/24 12/21/24 Range/Units 04:43 05:02 05:02 RBC 2.13 L (4.30-5.90) m/uL Hgb 7.0 L (13.0-17.5) gm/dL Hct 20.7 L (39.0-53.0) % RDW 17.4 H (11.5-15.5) % Plt Count 85 L (150-450) k/uL Neutrophils # 9.2 H (1.3-7.7) k/uL Lymphocytes # 0.5 L (1.0-4.8) k/uL ABG pCO2 33 L (35-45) mmHg ABG O2 Saturation 98.4 H (94-97) % Hemoglobin 6.8 L* (13.0-17.5) gm/dL BUN 103 H* (9-20) mg/dL Creatinine 2.75 H (0.66-1.25) mg/dL Glucose 105 H (74-99) mg/dL POC Glucose (mg/dL) (70-110) mg/dL Calcium 8.1 L (8.4-10.2) mg/dL 12/21/24 Range/Units 05:05 RBC (4.30-5.90) m/uL Hgb (13.0-17.5) gm/dL Hct (39.0-53.0) % RDW (11.5-15.5) % Plt Count (150-450) k/uL Neutrophils # (1.3-7.7) k/uL Lymphocytes # (1.0-4.8) k/uL ABG pCO2 (35-45) mmHg ABG O2 Saturation (94-97) % Hemoglobin (13.0-17.5) gm/dL BUN (9-20) mg/dL Creatinine (0.66-1.25) mg/dL Glucose (74-99) mg/dL POC Glucose (mg/dL) 119 H (70-110) mg/dL Calcium (8.4-10.2) mg/dL Microbiology - Last 24 Hours (Table) 12/18/24 12:40 Blood Culture - Preliminary Blood Assessment and Plan (1) Hypercalcemia Current Visit: Yes Status: Acute Priority: High Code(s): E83.52 - HY PERCALCEMIA SNOMED Code(s): 08810648 (2) Goessel light chain myeloma Current Visit: Yes Status: Acute Priority: High Code(s): C90.00 - MULTIPLE MYELOMA NOT HAVING ACHIEVED REMISSION SNOMED Code(s): 300570631 (3) New onset atrial fibrillation Current Visit: Yes Status: Acute Code(s): I48.91 - UNSPECIFIED ATRIAL FIBRILLATION SNOMED Code(s): 47896846 Plan: 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 -Completed 7 cycles of RVD in May 2024 achieving very good partial response with 99% reduction in kappa light chain -Had been on maintenance Revlimid 10 mg daily, which he stopped taking September 2024 for unclear reasons, he then developed progressive disease and symptoms of weakness, MICKEY, anemia, and thrombocytopenia -Admitted with failure to thrive with weakness, dehydration -CTA ruled out PE but reported pleural-based nodules with large right sided pleural effusion, peritoneal carcinomatosis, and retroperitoneal lymphadenopathy -720cc Right-sided thoracentesis performed, post procedure pneumo, thoravent placed. -Cytology positive for plasma cell myeloma -Urine kappa/lambda ratio elevated at 60.4, UPEP positive for monoclonal p rotein. Concern there is multi-organ involvement of his myeloma. Typically myeloma is rather chemo sensitive and can achieve a quick response. Also, pt responded very well to previous regimen. Discussed with family about initiating CyBorD inpatient to try to achieve disease control. They were agreeable to the same -Cycle 1 of CyBorD was initiated on 12/14/2024. Day 8, velcade/cytoxan scheduled for today. Spoke with PharmD regarding dosing and HD. Will decrease cytoxan by 50%, chemo to be given after HD -S/p IVIG for hypogammaglobulinemia -We will continue to closely monitor course of hospitalization. MICKEY: -Kidney function has been declining during admit -Uric acid elevated at 17.5. S/p 1 dose Elitek. Uric acid now normal -Appears to be multifactorial, r/t to ATN, multiple myeloma involvement, and possible component of TLS, although TLS is rare with MM -HD has been started, kidney function improving -Nephrology following Diarrhea: -Has been noting increased watery stool in rectal tube. Stool is dark. -Tube feedings have been held, and outpt has slowed down -Continue to monitor for GI bleed, and closely monitor CBC -S/p 2 units PRBCs. Hgb today 7.0 Hypercalcemia -Noted to have calcium of 10.5 on admission -Likely multifactorial given dehydration on admission along with relapsed multiple myeloma -Received IV fluids with no significant elevation in his calcium subsequently -For now, we will hold off on bisphosphonate and continue to assess calcium -If he has progressive rise in calcium, bisphosphonate can be given Doctor attests: I performed a history and physical examination of this patient, developed impression and plan of care. Discussed with dictator. I agree with dictators note, documented as a scribe.
[2024-12-21] MEDS: BORTEZOMIB 3.5 MG VIAL SQ ONE (17:42)
[2024-12-21 18:09] LABS: Appearance,Urine Cloudy (Clear); Bilirubin,Urine Negative (Negative); Blood,Urine Small (Negative); Color,Urine Colorless; Glucose,Urine (UA) Negative (Negative); Ketones,Urine Negative (Negative); Leukocyte Esterase,Urine Negative (Negative); Nitrite,Urine Negative (Negative); Protein,Urine Trace (Negative); Specific Gravity,Urine 1.014 (1.001-1.035); Urobilinogen,Urine <2.0 mg/dL (<2.0)
[2024-12-21 18:36] LABS: Glucose,Whole Blood 113 mg/dL (70-110)
--- NOTE | 2024-12-21 19:11 | P.PN ---
Subjective Progress Note Date: 12/21/24 Will continue to follow 12/18/2024 the patient is being seen for a follow-up. The patient remains intubated on mechanical ventilator. This morning, the patient on propofol running at 20 mcg/kg/min. The patient remains on assist- control mode mechanical ventilation and the patient is on a rate of 20, tidal volume of 450, FiO2 of 35% with a PEEP of 5. Blood gas showed a pH of 7.19 with a pCO2 of 43 and pO2 of 95. Chest x-ray is essentially unchanged. There is no evidence of any pneumothorax. There is a large right-sided pleural effusion and no evidence of any left-sided pleural effusion. ET tube is in a good location. The patient is producing urine output in the order of 30 to 40 cc an hour. The cardiac rhythm In the sinus. The patient did has a fecal management system in place and the patient has produced a total of 100 cc of stool every 2 hours, a total of 1 L over the past 24 hours. Stool for C. difficile has been negative. He continues to receive enteral feeding for nutritional support and the patient is on a vital high-protein at 20 to 35 cc an hour. The white cell count is at 1.3 with a hemoglobin of 7 and a platelet count of 164. Potassium level is at 5.7. BUN is 191 and the creatinine is at 5.6 and a sodium levels of 139 and potassium level is at 5.7. Nephrology on the case. Renal replacement therapy was discussed with the family and at this point they have not made the decision. The patient was started on a bicarb infusion. Afebrile. Hemodynamically stabl e. Remains on Velcade. Remains on cyclophosphamide. Remains on Decadron regarding multiple myeloma. 12/19/2024, patient is being seen in follow-up. Remains intubated on mechanical ventilator. On today's evaluation, the patient is on propofol running at 50 mcg/kg/min. Remains on control mode of mechanical ventilation at rate of 26, tidal volume of 550, FiO2 35% with a PEEP of 5. Blood gas showed a pH of 7.4 with a pCO2 33 and pO2 of 95. The patient had a follow-up chest x-ray shows a moderate to large right-sided pleural effusion, essentially stable in the ED to be seen in the location. The patient remains on a bicarb infusion at rate of 35 cc an hour. He did have some borderline hypotension yesterday and the patient is currently on norepinephrine at 0.02 mcg/kg/min. Urine output is in order of 50 cc an hour. He has fecal management system in place and the patient continues to have diarrhea with a total of 1 L of stool over the past 24 hours. At the same time, he has coffee-ground residual in the stomach. He received enteral feeding with vital HP at rate of 45 cc an hour. His cardiac rhythm is sinus and the patient has some sinus tachycardia. There is also a drop in hemoglobin down to 5.5. The white cell count is 6.8. Platelet count is at 135. BUN is 203, creatinine is 4.5, sodium is at 143 with a potassium level of 4.9. Procalcitonin level is at 0.67. The patient was given a hemodialysis catheter yesterday. 12/20/2024, the patient is being seen for a follow-up. This morning, the patient remains sedated on propofol at 10 mcg/kg/min. Noted the patient was given a sedation holiday yesterday. He was able to follow simple commands. He remains profoundly weak and lethargic. This morning, he is on assist-control mode of mechanical ventilation at rate of 26, percent blood gas with a pH of 7 point large right-sided pleural effusion. No evidence of any pneumothorax. The patient underwent hemodialysis yesterday and another session of hemodialysis to be done today. He remains in normal sinus rate of 70 cc an hour. He received a total of 2 nights of packed RBC and since then the patient is spiking a low- grade temperature. Urine output is the order of 30 to 40 cc an hour. He is currently n.p.o. suspecting a GI bleed. FMS is still in place and the stool output is dropped down to 75 cc over the past 8 hours. Remains on IV Zosyn as a broad-spectrum antibiotic coverage. Hemoglobin today is at 7.8. The white cell count 11.6 with a platelet count of 107. Sodium is at 140, potassium is at 4.4, BUN is 144 with a creatinine of 2.8 and a serum bicarb is at 23. 12/21/2024, patient is being seen for a follow-up. The patient was taken off the sedation this morning. The patient was able to follow simple commands. He remains profoundly weak. He wiggles his toes and moves his fingers. Unable to raise his head up to bed and not able to raise his arms against gravity. His cough remains weak. He is on assist-control mode of mechanical ventilation at rate of 20, tidal volume of 550, FiO2 of 35% with a PEEP of 5. Blood gas showed pH of 7.45 with a pCO2 of 33 and pO2 of 102. Weaning parameters were done and they are essentially poor. The patient was unable to generate adequate tidal volumes and the patient's respiratory rate was quite elevated. Based on that, no CPAP trial was given. Urine output in the order of 30 cc an hour. The patient remains on low-dose norepinephrine running at 0.04 mcg/kg/min he is undergoing daily hemodialysis. Hemodialysis was done yesterday and another session is to be done today. Fluid balance -3 L over the past 24 hours. Cardiac rhythm is sinus. He was given a dose of Lasix yesterday without any significant improvement in his urine output. He has a fecal management system in place. Diarrhea has subsided as the patient is currently NPO. The white cell count is at 10.6 with a hemoglobin of 7 and a platelet count of 85. BUN is 103 with a creatinine of 2.7. Sodium levels at 137, potassium level is at 4.4. The patient is continuing his treatment. Receiving cyclophosphamide on a weekly basis. He is also on high-dose Decadron. He is also on empiric antibiotic coverage with IV Zosyn. He is still being seen by oncology. The patient will be given Velcade and Cytoxan as scheduled for today. Will decrease his Cytoxan dose by 50% and the chemotherapy will be given following his hemodialysis. Objective - Vital Signs Vital signs: Vital Signs Temp 98.9 F 12/21/24 09:00 Pulse 101 H 12/21/24 09:00 Resp 20 12/21/24 09:00 BP 125/70 12/21/24 08:15 Pulse Ox 97 12/21/24 09:00 FiO2 35 12/21/24 07:58 Intake & Output 12/20/24 12/21/24 12/21/24 18:59 06:59 18:59 Intake Total 1310.036 709.116 18 Output Total 4335 740 28 Balance -3024.964 -30.884 -10 Weight 80.1 kg Intake: IV 291 216 18 .9 KVO 45 180 15 0.9 pressure bag 36 36 3 Sodium Chloride 0.9% 1, 210 000 ml @ 70 mls/hr IV . [id number] [facility] Rx#:[id number] Intake, IV Titration 419.036 433.116 Amount Norepinephrine 4 mg In 192.015 175.503 Sodium Chloride 0.9% 250 ml @ 0.03 MCG/KG/MIN 9. 464 mls/hr IV .Q24H [facility] Rx#:[id number] Piperacillin-Tazobactam 3 100 .375 gm In Sodium Chloride 0.9% 100 ml @ 25 mls/hr IVPB Q12H [facility] Rx# :[id number] Piperacillin-Tazobactam 3 200 .375 gm In Sodium Chloride 0.9% 100 ml @ 25 mls/hr IVPB Q8H [facility] Rx#: [id number] Sodium Chloride 0.9% 1, 70 000 ml @ 70 mls/hr IV . [id number] [facility] Rx#:[id number] propofoL 1,000 mg In 57.021 57.613 Empty Bag 1 bag @ 15 MCG/ KG/MIN 7.614 mls/hr IV . [id number] [facility] Rx#:[id number] Oral 0 0 0 Hemodialysis 600 Other 60 Output: Gastric Drainage 500 500 Urine 635 190 28 Stool 50 Hemodialysis 1900 Hemodialysis Net Amount 1300 Other: Voiding Method Indwelling Catheter Indwelling Catheter ABP, PAP, CO, CI - Last Documented Arterial Blood Pressure 103/46 - Exam The patient appeared well nourished and normally developed. Vital signs as documented. The patient remains intubated on mechanical ventilator. The patient is off sedation, following simple commands. Continues to have profound weakness in all 4 extremities. Head exam is unremarkable. No scleral icterus or corneal arcus noted. Neck is without jugular venous distension, thyromegaly, or carotid bruits. Carotid upstrokes are brisk bilaterally. Orogastric and orotracheal tube are both in place. Lungs irregular breathing and diminished breath sound right compared to the left related to pleural effusion. Cardiac exam reveals the PMI to be normally sized and situated. Rhythm is regular. First and second heart sounds normal. No murmurs, rubs or gallops. Abdominal exam reveals normal bowel sounds, no masses, no organomegaly and no aortic enlargement. Extremities are edematous and both femoral and pedal pulses are normal. The pulses in general are diminished and the extremities are edematous. Examination of the skin revealed no evidence of significant rashes, suspicious appearing nevi or other concerning lesions. Neurologically, the patient is off sedation, able to communicate, no focal neurological deficit as the patient has global generalized weakness in all 4 extremities. - Labs CBC & Chem 7: 12/21/24 05:02 12/21/24 05:02 Labs: Abnormal Lab Results - Last 24 Hours (Table) 12/20/24 12/20/24 12/20/24 Range/Units 11:50 17:49 23:25 RBC (4.30-5.90) m/uL Hgb (13.0-17.5) gm/dL Hct (39.0-53.0) % RDW (11.5-15.5) % Plt Count (150-450) k/uL Neutrophils # (1.3-7.7) k/uL Lymphocytes # (1.0-4.8) k/uL ABG pCO2 (35-45) mmHg ABG O2 Saturation (94-97) % Hemoglobin (13.0-17.5) gm/dL BUN (9-20) mg/dL Creatinine (0.66-1.25) mg/dL Glucose (74-99) mg/dL POC Glucose (mg/dL) 140 H 130 H 123 H (70-110) mg/dL Calcium (8.4-10.2) mg/dL 12/21/24 12/21/24 12/21/24 Range/Units 04:43 05:02 05:02 RBC 2.13 L (4.30-5.90) m/uL Hgb 7.0 L (13.0-17.5) gm/dL Hct 20.7 L (39.0-53.0) % RDW 17.4 H (11.5-15.5) % Plt Count 85 L (150-450) k/uL Neutrophils # 9.2 H (1.3-7.7) k/uL Lymphocytes # 0.5 L (1.0-4.8) k/uL ABG pCO2 33 L (35-45) mmHg ABG O2 Saturation 98.4 H (94-97) % Hemoglobin 6.8 L* (13.0-17.5) gm/dL BUN 103 H* (9-20) mg/dL Creatinine 2.75 H (0.66-1.25) mg/dL Glucose 105 H (74-99) mg/dL POC Glucose (mg/dL) (70-110) mg/dL Calcium 8.1 L (8.4-10.2) mg/dL 12/21/24 Range/Units 05:05 RBC (4.30-5.90) m/uL Hgb (13.0-17.5) gm/dL Hct (39.0-53.0) % RDW (11.5-15.5) % Plt Count (150-450) k/uL Neutrophils # (1.3-7.7) k/uL Lymphocytes # (1.0-4.8) k/uL ABG pCO2 (35-45) mmHg ABG O2 Saturation (94-97) % Hemoglobin (13.0-17.5) gm/dL BUN (9-20) mg/dL Creatinine (0.66-1.25) mg/dL Glucose (74-99) mg/dL POC Glucose (mg/dL) 119 H (70-110) mg/dL Calcium (8.4-10.2) mg/dL Microbiology - Last 24 Hours (Table) 12/18/24 12:40 Blood Culture - Preliminary Blood Assessment and Plan Plan: Acute hypoxemic and hypercapnic respiratory failure, multifactorial, requiring intubation, and mechanical ventilation, on December 12, 2024. The patient has a large right-sided pleural effusion. Oxygenation is stable while being on mechanical ventilator. Chest x-ray remains unchanged on today's evaluation. No evidence of any pneumothorax. Chest x-ray remains unchanged and the patient continues to have a large right-sided pleural effusion. This has not affected his oxygenation. Weaning parameters are poor. Unable to perform a spontaneous breathing trial yet. S/P right sided thoracentesis, with a right-sided iatrogenic pneumothorax, recovered. Pleural fluid was exudative and there is reaccumulation of the right-sided pleural effusion S/P right Thora vent placement, with removal on December 12, 2024. Multiple myeloma, relapsed high 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, the patient completed 7 cycles of RVD in May 2024 achieving very good partial response with 99% reduction in kappa light chain. The patient has been on maintenance Revlimid 10 mg daily, which he stopped taking September 2024 for unclear reasons, and the patient is currently on Revlimid, Cytoxan and Decadron. The patient is scheduled to undergo treatment with Revlimid and Cytoxan today and the treatment will be given with a 50% reduction in the dose post hemodialysis. Anion gap metabolic acidosis, recovered Hyperkalemia, improved Acute on chronic anemia with questionable upper GI source of bleeding as the patient has some coffee-ground gastric material.. FMS still in place.the patient is currently NPO. No evidence of any acute bleeding and the patient is hemoglobin is stable for now Tumor lysis syndrome, improved Acute kidney injury with bilateral hydronephrosis, and significantly worsening renal function. The patient is currently undergoing daily hemodialysis Hypercalcemia, resolved. Chronic anemia. Hypertension. History of hyperlipidemia. History of obstructive sleep apnea syndrome, maintained on home CPAP. Diarrhea, and the patient has a fecal management system in place Plan: Keep the patient off sedation Weaning parameters are poor Will check weaning paralysis periodically Not a candidate for a spontaneous breathing trial yet C will keep the patient on assist-control mode of mechanical ventilation without any vent changes Change IV fluids to KVO Continue hemodialysis and another session will be done today We will consider drainage of the right-sided pleural effusion if the weaning parameters remain weak and suboptimal Titrate norepinephrine and patient is currently on a low-dose Continue empiric antibiotic coverage with IV Zosyn Will administer chemotherapy with a combination of Velcade and Cytoxan with a 50% dose reduction post hemodialysis Continue IV Protonix 40 mg every 24 hours Keep tube feeds on hold and tube feeds will be restarted tomorrow Insert PICC line Nephrology on the case Hematology oncology is on the case Prognosis remains poor based on above-mentioned comorbidities. Will continue to follow make further recommendations based on his progress. Critical care evaluation 31 minutes. Time with Patient: Greater than 30
[2024-12-21] MEDS: PIPERACILLIN-TAZOBACTAM 3.375 GM in SODIUM CHLORIDE 0.9% 100 ML IVPB SCH (20:54)
[2024-12-22] LABS: Glucose,Whole Blood 98 mg/dL (70-110)
[2024-12-22 04:47] LABS: ABG Base Excess -1.3 mmol/L; ABG HCO3 23 mmol/L (21-25); ABG Oxygen Saturation 97.6 % (94-97); ABG PCO2 34 mmHg (35-45); ABG PH 7.43 (7.35-7.45); ABG PO2 92 mmHg (83-108); ABG TCO2 24 mmol/L (19-24)
[2024-12-22 05:31] LABS: Anisocytosis Slight; Basophils % (A) 0 %; Eosinophils # (A) 0.1 k/uL (0-0.7); Eosinophils % (A) 1 %; HCT 20.9 % (39.0-53.0); Lymphocytes # (A) 0.4 k/uL (1.0-4.8); Lymphocytes % (A) 5 %; MCH 32.3 pg (25.0-35.0); MCHC 32.4 g/dL (31.0-37.0); MCV 99.5 fL (80.0-100.0); Macrocytosis Slight; Mean Platelet Volume 11.7; Monocytes # (A) 0.4 k/uL (0-1.0); Monocytes % (A) 5 %; Neutrophils # (A) 7.7 k/uL (1.3-7.7); Neutrophils % (A) 88 %; RDW 17.3 % (11.5-15.5); WBC 8.7 k/uL (3.8-10.6)
[2024-12-22 05:32] LABS: Allen Test Performed? no
[2024-12-22 05:33] LABS: HGB 6.8 gm/dL (13.0-17.5)
[2024-12-22 05:38] LABS: Glucose,Whole Blood 83 mg/dL (70-110)
[2024-12-22] MEDS: DEXTROSE 5% IN WATER 100 ML with AMIODARONE 150 MG IV ONE (05:57)
--- NOTE | 2024-12-22 05:58 | P.PN ---
Subjective Progress Note Date: 12/21/24 patient is 79-year-old gentleman with past medical history significant for multiple myeloma, hypertension, hyperlipidemia presented to the ER because of abnormal labs. Patient normally sees Dr. Broderick and was on systemic treatment which apparently had stopped taking. Patient had blood work drawn outpatient and was told by the peg driver to come to the ER. Patient states over the last couple of days he has been having increasing shortness of breath. Shortness of breath was present at rest as on exertion. Patient was complaining of being lethargic and weakness. Patient also complaining of productive cough with occasional episodes of hemoptysis. Denies any chest pain. There is no complaint of fever or chills. There is no complaint of orthopnea or PND. Patient denies any nausea, vomiting, pain. Patient denies any lightheaded or dizziness. Initial lab work done in the ER showed WBC 3.8, hemoglobin 9, platelet count 134 sodium 142, potassium 4, BUN 40, creatinine 1.40 glucose 103, lactate 1.2, calcium 10.5, magnesium 1.4 bilirubin 0.7, AST 27, ALT 11, troponin 0.018, proBNP 1550 Influenza A not detected Influenza B not detected RSV not detected COVID-19 not detected EKG done in the ER showed heart rate of , no ST segment elevation or depression seen, no T-wave inversions seen. Chest x-ray done in the ER showed patchy infiltrative opacity throughout the right lung with small to moderate size right pleural effusion. Questionable air-fluid level versus overlying skinfold is indeterminate for cavitary lesion or abscess. Recommend CT chest for further evaluation, consolidation in the left lung apex CT chest PE protocol done showed no definite acute PE within the vasculature, significant progression of metastatic disease with numerous pleural-based metastatic deposits and involvement of the left-sided ribs additionally there is peritoneal carcinomatosis in the partially visualized upper abdomen. Patient admitted to internal medicine service 12/07. Patient seen and examined. Status post right-sided thoracentesis with removal of 720 cc of fluid. Blood work done today showed WBC 4.9, hemoglobin 8.8, platelet count 138, sodium 143, potassium 4.1, BUN 33, creatinine 1.74, calcium 9.7 Patient had right-sided Thora vent placed this morning. Currently on 4 L of oxy gen. 12/08. Patient seen and examined. Vital signs done this morning showedTemp 98, heart rate 98, respirations 30, blood pressure 125/84, currently on 2 L of oxygen. Denies any shortness of breath at rest. Currently has a Thora vent in place. Chest x-ray done this morning shows right-sided pleural effusion, right- sided chest tube in place with residual pneumothorax. 12/09. Old male patient currently sleeping, he was agitated and restless overnight and he was prescribed Seroquel 25 mg which made him calm He still tachypneic with a breathing rate around 28, he is saturating high 90s on 3 L oxygen via nasal cannula Hemoglobin slightly trending down to 7.7 and creatinine up to 1.9 His proBNP is 1550 and procalcitonin negative at 0.16 Chest x-ray reviewed by myself showing right more than left infiltrate but looks better than 2 days ago Renal ultrasound showing no hydronephrosis finger right renal cyst He is currently kept on Zosyn. On home dose of Eliquis 2.5 mg. He had pneumothorax on the right side status post Thora vent, currently he has minimal discharge from his right Thora vent 12/10 Patient moved out of the ICU to select unit He is more awake today but still confused, he was trying to pull out his lines and Thora vent. He is mildly tachypneic with talking. He can tell he is in the hospital but also still mildly confused. Serevent was Today. Repeat chest x-ray showing mild improvement in the right pneumothorax, I reviewed the chest x-ray by myself. He remains on Zosyn and home dose of Eliquis 2.5 Will going to add small dose of Seroquel 12.5. 12/11 Patient more awake trying to talk Still feel short of breath although slightly better than yesterday, breathing r ate around 22 compared to 28 yesterday, his right upper chest Thora vent is in place and capped Repeat chest x-ray this morning showing right pleural effusion more than left with pulmonary vascular congestion suspicious for CHF. Currently patient off IV fluid He is on Zosyn and Eliquis 2.5 mg. 12/12 Patient in the morning was awake and alert but slightly agitated, he had a sitter at bedside. Thora vent was taken out after it was capped yesterday. His mentation was getting worse through the day and he became more tachypneic and tachycardic and he has to be placed on BiPAP. Repeat chest x-ray showing moderate to large right pleural effusion and evidence of CHF. Patient was moved to the ICU for more monitoring pH was 7.2 worsening to veneer measurer to 7.08 and pCO2 was elevated at 58 wor sened to 92. Creatinine also worsened up to 2.7 and sodium 146., With worsening breathing patient had to be intubated and placed on mechanical ventilation 12/13 Patient remains in the ICU intubated and sedated His breathing more quiet today. Abdomen soft Hemoglobin dropped to 7.0. Platelet count stable at 139, creatinine stable or slightly improved 2.7 down to 2.6. Patient placed on normal saline 75 mL/h. 12/14 Patient remains intubated and sedated He does not need pressors and Zosyn was discontinued He received some IV fluid Chest x-ray still showing pulmonary vascular congestion Pathology from pleural fluid came back positive for malignancy Sister and at bedside, oncology team discussing the case with them. Patient still at risk. 12/15 Patient remains intubated on mechanical ventilation in the ICU Family yesterday discussed the case with oncology team and patient remains full code and he was started on chemotherapy. Imodium can be stopped Chest x-ray showing persistent right-sided infiltrate most likely secondary to fluid and malignancy. Prognosis remains guarded and patient still high risk 12/16 Patient remains intubated and sedated Patient has no events overnight He was getting chemotherapy No IV fluid, no antibiotic chest tube feeding, he got 1 dose of 80 mg of Lasix yesterday He has good urine output of about 15 to 20 mL/h Also has low-grade temperature 100.2 yesterday and 9.9 today. Repeat chest x-ray showing CHF for right pleural effusion which is malignant p leural effusion Patient continue to get chemotherapy through tomorrow Patient has negative C. diff test 12/17 Patient still getting chemotherapy His creatinine gets worse and he has hemodialysis catheter placed in He remains intubated in the ICU on mechanical ventilation Breathing rate about 27 Creatinine worse at 5.0. Phosphorus 12.7. Glucose controlled. pH 7.23 12/18 Patient remains in the ICU intubated and sedated. Patient is today finished his chemotherapy per oncology team. Today he is not getting chemotherapy there is another cycle in order for chemotherapy on 12/21. However patient today developing worsening hypotension requiring Levophed and also started on sodium bicarb. Potassium and creatinine trending up, currently 5.6 with a plan for hemodialysis per retail salesperson. Hemoglobin 7.0. Leukocytosis is increased but pH is low at 7.1. Chest x-ray showing same malignant pleural effusion. Prognosis tomy guarded 12/19/2024 Patient is seen in follow-up today continues in the ICU with multiple consultations following maintained on mechanical ventilation. Kidney functions are worsening with nephrology following and vascular surgery was consulted and dialysis catheter was placed. Patient scheduled to undergo hemodialysis today. Patient continues on pressor support which is being weaned and overall prognosis remains significantly guarded. Hemoglobin is stable today and being given a unit of PRBC. Will follow-up on repeat labs and monitor closely. 12/20/2024 Patient is seen and evaluated in the ICU continues to be on mechanical ventilation FiO2 is 35% with a PEEP of 5. Patient is undergoing sedation holidays and currently not following commands. Patient is receiving hemodialysis and kidney functions are improving although BUN remains elevated. Patient will receive dialysis again. Patient is making urine. Patient does have fecal management system and recommend C. difficile although stool was noted to be black and loose. Prognosis is extremely guarded at this time. 12/21/2024 Patient is seen in follow-up continues on mechanical ventilation with an FiO2 of 35% and PEEP is 5. Patient undergoing sedation holidays and does open eyes and eye track although significantly weak unable to follow commands. Patient with indwelling Escobar catheter monitoring intake and output and urine appears cloudy, will send urine for evaluation. Hemoglobin 7.1 and will likely need a unit of blood. Patient continued on hemodialysis and will possibly plan for unit of blood with next session of dialysis. Patient is afebrile and maintained on Zo syn and will continue. Low-dose pressor support remains at this time and weaning as tolerated. Review of systems: Unable to obtain as patient is on mechanical ventilation and sedated Physical exam: GENERAL: The patient is a 79-year-old male who is alert and oriented x 0, currently undergoing sedation trial and is opening eyes and tracking although not following commands, maintained on mechanical ventilation with an FiO2 of 35% and PEEP is 5, well-developed, elderly appearing, ill-appearing HEENT: Pupils are round and equally reacting to light. EOMI. No scleral icterus. No conjunctival pallor. Normocephalic, atraumatic. No pharyngeal erythema. No thyromegaly. CARDIOVASCULAR: S1 and S2 muffled PULMONARY: Chest is clear to auscultation, no wheezing , no crackles. Tachypneic, decreased breath sounds on the right side ABDOMEN: Soft, nontender, nondistended, normoactive bowel sounds. No palpable organomegaly. MUSCULOSKELETAL: No joint swelling or deformity. EXTREMITIES: No cyanosis, clubbing, or pedal edema. NEUROLOGICAL: Gross neurological examination did not reveal any focal deficits. Diffusely weak SKIN: No rashes. no petechiae. Assessment: Acute hypoxic respiratory failure required intubation and mechanical ventilation Malignant large pleural effusion status post thoracocentesis. On 12/13 has breathing that worsened because of CHF and large pleural effusion and patient has to be placed on mechanical ventilation. Pathology sample came back positive for malignant cells Iatrogenic right pneumothorax status post Thora vent placement, which was removed on 12/13 Possible septic shock Acute kidney injury with worsening kidney functions, status post dialysis catheter placement and is now on hemodialysis as of 12/19/2024 Multiple myeloma, s/p chemotherapy 12/15-12/17 Hypercalcemia Chronic anemia Hypertension Hyperlipidemia Obstructive sleep apnea A-fib and RVR GI prophylaxis DVT prophylaxis Full code Plan: Continue patient care in the ICU with multiple consultations following maintained on mechanical ventilation, undergoing sedation trials and is opening eyes and tracking although not following commands and is extremely weak Started chemotherapy on 12/15-12/17. Another plan of chemotherapy is planned for today with oncology following Patient is continued on Levophed and sodium bicarb, weaning as tolerated Patient with worsening kidney functions per nephrology, vascular surgery placed temporary dialysis catheter and is undergoing hemodialysis with titration. Tolerating thus far. Patient continues to make urine and does have an indwelling Escobar catheter and recommend to monitor intake and output closely. Urine appears cloudy will send for urinalysis Continue with intubation and mechanical ventilation as per pulmonary/critical care team, with no immediate plans of extubation at this time On Lasix per retail salesperson Antibiotics being resumed Family to discuss the need for tracheostomy and PEG tube in the near future Due to multiple complex medical issues, overall prognosis is extremely guarded at this time The impression and plan of care has been dictated by Mildred Goff, Nurse Practitioner as directed. Dr. Keith MD I have performed a history and examination and MDM of this patient, discussed the same with the dictator, and agree with the dictator's assessment and plan as written ,documented as a scribe. Based on total visit time, I have performed more than 50% of the visit. Objective - Vital Signs Vital signs: Vital Signs Temp 97.8 F 12/22/24 00:00 Pulse 141 H 12/22/24 05:30 Resp 23 12/22/24 05:30 BP 111/64 12/22/24 05:30 Pulse Ox 97 12/22/24 05:30 FiO2 35 12/22/24 05:30 Intake & Output 12/21/24 12/21/24 12/22/24 06:59 18:59 06:59 Intake Total 709.116 776.328 668.787 Output Total 740 4833 260 Balance -30.884 -4056.672 408.787 Weight 80.1 kg 80.1 kg 78.1 kg Intake: IV 216 261 253 .9 KVO 180 225 220 0.9 pressure bag 36 36 33 Intake, IV Titration 433.116 115.328 415.787 Amount Norepinephrine 4 mg In 175.503 98.112 182.709 Sodium Chloride 0.9% 250 ml @ 0.03 MCG/KG/MIN 9. 464 mls/hr IV .Q24H [facility] Rx#:[id number] Piperacillin-Tazobactam 3 200 .375 gm In Sodium Chloride 0.9% 100 ml @ 25 mls/hr IVPB Q8H [facility] Rx#: [id number] Piperacillin-Tazobactam 3 200 .375 gm In Sodium Chloride 0.9% 100 ml @ 25 mls/hr IVPB Q8H [facility] Rx#: [id number] propofoL 1,000 mg In 57.613 17.216 33.078 Empty Bag 1 bag @ 15 MCG/ KG/MIN 7.614 mls/hr IV . Q13H9M [facility] Rx#:[id number] Oral 0 0 Tube Feeding 0 0 Hemodialysis 400 Other 60 Output: Gastric Drainage 500 100 50 Urine 190 283 210 Stool 50 50 Hemodialysis 2400 Hemodialysis Net Amount 2000 Other: Voiding Method Indwelling Catheter Indwelling Catheter Indwelling Catheter ABP, PAP, CO, CI - Last Documented Arterial Blood Pressure 117/53 - Labs CBC & Chem 7: 12/22/24 04:44 12/21/24 05:02 Labs: Abnormal Lab Results - Last 24 Hours (Table) 12/21/24 12/21/24 12/21/24 Range/Units 05:02 05:02 11:52 RBC (4.30-5.90) m/uL Hgb (13.0-17.5) gm/dL Hct (39.0-53.0) % RDW (11.5-15.5) % Plt Count 85 L (150-450) k/uL Neutrophils # 9.2 H (1.3-7.7) k/uL Lymphocytes # 0.5 L (1.0-4.8) k/uL ABG pCO2 (35-45) mmHg ABG O2 Saturation (94-97) % Hemoglobin (13.0-17.5) gm/dL BUN 103 H* (9-20) mg/dL Creatinine 2.75 H (0.66-1.25) mg/dL Glucose 105 H (74-99) mg/dL POC Glucose (mg/dL) 113 H (70-110) mg/dL Calcium 8.1 L (8.4-10.2) mg/dL Urine Protein (Negative) Urine Blood (Negative) 12/21/24 12/21/24 12/21/24 Range/Units 12:21 17:50 18:33 RBC (4.30-5.90) m/uL Hgb (13.0-17.5) gm/dL Hct (39.0-53.0) % RDW (11.5-15.5) % Plt Count (150-450) k/uL Neutrophils # (1.3-7.7) k/uL Lymphocytes # (1.0-4.8) k/uL ABG pCO2 (35-45) mmHg ABG O2 Saturation (94-97) % Hemoglobin (13.0-17.5) gm/dL BUN (9-20) mg/dL Creatinine (0.66-1.25) mg/dL Glucose (74-99) mg/dL POC Glucose (mg/dL) 112 H 113 H (70-110) mg/dL Calcium (8.4-10.2) mg/dL Urine Protein Trace H (Negative) Urine Blood Small H (Negative) 12/22/24 12/22/24 Range/Units 04:44 04:44 RBC 2.10 L (4.30-5.90) m/uL Hgb 6.8 L* (13.0-17.5) gm/dL Hct 20.9 L (39.0-53.0) % RDW 17.3 H (11.5-15.5) % Plt Count (150-450) k/uL Neutrophils # (1.3-7.7) k/uL Lymphocytes # (1.0-4.8) k/uL ABG pCO2 34 L (35-45) mmHg ABG O2 Saturation 97.6 H (94-97) % Hemoglobin 6.7 L* (13.0-17.5) gm/dL BUN (9-20) mg/dL Creatinine (0.66-1.25) mg/dL Glucose (74-99) mg/dL POC Glucose (mg/dL) (70-110) mg/dL Calcium (8.4-10.2) mg/dL Urine Protein (Negative) Urine Blood (Negative) Microbiology - Last 24 Hours (Table) 12/06/24 15:30 Acid Fast Bacilli Smear - Preliminary Pleural Fluid Acid Fast Bacilli Culture - Preliminary 12/18/24 12:40 Blood Culture - Preliminary Blood
[2024-12-22 06:02] LABS: ALT 18 U/L (4-49); AST 55 U/L (17-59); Albumin 2.8 g/dL (3.5-5.0); Alkaline Phosphatase 52 U/L (38-126); Anion Gap 12 mmol/L; Blood Urea Nitrogen 68 mg/dL (9-20); Calcium 8.1 mg/dL (8.4-10.2); Carbon Dioxide 22 mmol/L (22-30); Chloride 101 mmol/L (98-107); Glucose 79 mg/dL (74-99); Magnesium 1.9 mg/dL (1.6-2.3); Potassium 3.7 mmol/L (3.5-5.1); Sodium 135 mmol/L (137-145); Total Bilirubin 0.7 mg/dL (0.2-1.3); Total Protein 5.3 g/dL (6.3-8.2)
[2024-12-22] MEDS: AMIODARONE 360 MG in DEXTROSE 5% IN WATER 200 ML IV ONE (06:02)
[2024-12-22 06:08] LABS: African American GFR (CKD) 25 (>60 ml/min/1.73 sqM); Non-African American GFR(CKD) 21 (>60 ml/min/1.73 sqM)
--- NOTE | 2024-12-22 07:08 | XR ---
EXAMINATION TYPE: XR chest 1V portable DATE OF EXAM: 12/22/2024 CLINICAL INDICATION: Male, 79 years old with history of ICU intubation, progress study. TECHNIQUE: 2 AP portable upright views the chest are obtained. COMPARISON: Chest x-ray from one day earlier and older studies. FINDINGS: Stable endotracheal and orogastric tubes. Persistent small to moderate-sized right pleural effusion and diffuse right mid to lower lung increas ed opacity. Left lung is clear. Cardiac silhouette size stable and within normal limits. Surgical hoang nge to right humerus is partially imaged. IMPRESSION: Persistent small to moderate-sized right pleural effusion and right mid to lower lung acu te infiltrate and/or edema. No significant change from one day earlier. [facility], , 12/22/2024 7:06 AM
[2024-12-22] MEDS: dexAMETHasone 4 MG TAB PO SCH (08:39)
[2024-12-22 09:39] LABS: Large Platelets Present; Platelet Count 79 k/uL (150-450)
--- NOTE | 2024-12-22 10:20 | US ---
EXAMINATION TYPE: US chest DATE OF EXAM: 12/22/2024 COMPARISON: Chest x-ray earlier today CLINICAL INDICATION: Male, 79 years old with history of sob, pleural effusion; right effusion TECHNIQUE: Grayscale imaging of the chest. Targeted ultrasound of the posterior lower right hemithor ax FINDINGS: EXAM MEASUREMENTS: Right Pleural Effusion pocket size: 7.6 cm Right skin surface to fluid distance: 2.8 cm Right side marked for possible thoracentesis outside the dept. Pulmonologists are able to review the images in the patient?s EMR. IMPRESSIONS: Moderate sized right sided pleural effusion confirmed on images saved correlates with x-ray. [facility], , 12/22/2024 10:18 AM
[2024-12-22] MEDS: AMIODARONE 450 MG in DEXTROSE 5% IN WATER 250 ML IV SCH (11:51)
[2024-12-22 12:01] LABS: Glucose,Whole Blood 94 mg/dL (70-110)
--- NOTE | 2024-12-22 13:30 | P.PN ---
Subjective Progress Note Date: 12/22/24 Will continue to follow 12/18/2024 the patient is being seen for a follow-up. The patient remains intubated on mechanical ventilator. This morning, the patient on propofol running at 20 mcg/kg/min. The patient remains on assist- control mode mechanical ventilation and the patient is on a rate of 20, tidal volume of 450, FiO2 of 35% with a PEEP of 5. Blood gas showed a pH of 7.19 with a pCO2 of 43 and pO2 of 95. Chest x-ray is essentially unchanged. There is no evidence of any pneumothorax. There is a large right-sided pleural effusion and no evidence of any left-sided pleural effusion. ET tube is in a good location. The patient is producing urine output in the order of 30 to 40 cc an hour. The cardiac rhythm In the sinus. The patient did has a fecal management system in place and the patient has produced a total of 100 cc of stool every 2 hours, a total of 1 L over the past 24 hours. Stool for C. difficile has been negative. He continues to receive enteral feeding for nutritional support and the patient is on a vital high-protein at 20 to 35 cc an hour. The white cell count is at 1.3 with a hemoglobin of 7 and a platelet count of 164. Potassium level is at 5.7. BUN is 191 and the creatinine is at 5.6 and a sodium levels of 139 and potassium level is at 5.7. Nephrology on the case. Renal replacement therapy was discussed with the family and at this point they have not made the decision. The patient was started on a bicarb infusion. Afebrile. Hemodynamically stabl e. Remains on Velcade. Remains on cyclophosphamide. Remains on Decadron regarding multiple myeloma. 12/19/2024, patient is being seen in follow-up. Remains intubated on mechanical ventilator. On today's evaluation, the patient is on propofol running at 50 mcg/kg/min. Remains on control mode of mechanical ventilation at rate of 26, tidal volume of 550, FiO2 35% with a PEEP of 5. Blood gas showed a pH of 7.4 with a pCO2 33 and pO2 of 95. The patient had a follow-up chest x-ray shows a moderate to large right-sided pleural effusion, essentially stable in the ED to be seen in the location. The patient remains on a bicarb infusion at rate of 35 cc an hour. He did have some borderline hypotension yesterday and the patient is currently on norepinephrine at 0.02 mcg/kg/min. Urine output is in order of 50 cc an hour. He has fecal management system in place and the patient continues to have diarrhea with a total of 1 L of stool over the past 24 hours. At the same time, he has coffee-ground residual in the stomach. He received enteral feeding with vital HP at rate of 45 cc an hour. His cardiac rhythm is sinus and the patient has some sinus tachycardia. There is also a drop in hemoglobin down to 5.5. The white cell count is 6.8. Platelet count is at 135. BUN is 203, creatinine is 4.5, sodium is at 143 with a potassium level of 4.9. Procalcitonin level is at 0.67. The patient was given a hemodialysis catheter yesterday. 12/20/2024, the patient is being seen for a follow-up. This morning, the patient remains sedated on propofol at 10 mcg/kg/min. Noted the patient was given a sedation holiday yesterday. He was able to follow simple commands. He remains profoundly weak and lethargic. This morning, he is on assist-control mode of mechanical ventilation at rate of 26, percent blood gas with a pH of 7 point large right-sided pleural effusion. No evidence of any pneumothorax. The patient underwent hemodialysis yesterday and another session of hemodialysis to be done today. He remains in normal sinus rate of 70 cc an hour. He received a total of 2 nights of packed RBC and since then the patient is spiking a low- grade temperature. Urine output is the order of 30 to 40 cc an hour. He is currently n.p.o. suspecting a GI bleed. FMS is still in place and the stool output is dropped down to 75 cc over the past 8 hours. Remains on IV Zosyn as a broad-spectrum antibiotic coverage. Hemoglobin today is at 7.8. The white cell count 11.6 with a platelet count of 107. Sodium is at 140, potassium is at 4.4, BUN is 144 with a creatinine of 2.8 and a serum bicarb is at 23. 12/21/2024, patient is being seen for a follow-up. The patient was taken off the sedation this morning. The patient was able to follow simple commands. He remains profoundly weak. He wiggles his toes and moves his fingers. Unable to raise his head up to bed and not able to raise his arms against gravity. His cough remains weak. He is on assist-control mode of mechanical ventilation at rate of 20, tidal volume of 550, FiO2 of 35% with a PEEP of 5. Blood gas showed pH of 7.45 with a pCO2 of 33 and pO2 of 102. Weaning parameters were done and they are essentially poor. The patient was unable to generate adequate tidal volumes and the patient's respiratory rate was quite elevated. Based on that, no CPAP trial was given. Urine output in the order of 30 cc an hour. The patient remains on low-dose norepinephrine running at 0.04 mcg/kg/min he is undergoing daily hemodialysis. Hemodialysis was done yesterday and another session is to be done today. Fluid balance -3 L over the past 24 hours. Cardiac rhythm is sinus. He was given a dose of Lasix yesterday without any significant improvement in his urine output. He has a fecal management system in place. Diarrhea has subsided as the patient is currently NPO. The white cell count is at 10.6 with a hemoglobin of 7 and a platelet count of 85. BUN is 103 with a creatinine of 2.7. Sodium levels at 137, potassium level is at 4.4. The patient is continuing his treatment. Receiving cyclophosphamide on a weekly basis. He is also on high-dose Decadron. He is also on empiric antibiotic coverage with IV Zosyn. He is still being seen by oncology. The patient will be given Velcade and Cytoxan as scheduled for today. Will decrease his Cytoxan dose by 50% and the chemotherapy will be given following his hemodialysis. 12/22/2024, remains intubated on the mechanical ventilator. This morning, the patient is on a low-dose propofol running at 10 mcg/kg/min. Arousable. Awake. Following simple commands. Underwent hemodialysis yesterday with a total of 2 L of fluid removal. Overnight, the patient went into atrial fibrillation with rapid ventricular response. Remains in A-fib. The patient was given amiodarone bolus and the patient is currently on a drip of 1 mg/min. Still in atrial fibrillation. Rate is under better control. Remains on norepinephrine at 0.12 mcg/kg/min. Received Velcade and cyclophosphamide yesterday. Hemoglobin dropped down to 6.8 and the patient will be receiving a unit of packed RBC. On today's evaluation, he is on assist-control mode at rate of 20, tidal volume of 550, FiO2 of 35% with a PEEP of 5. Blood gas showed a pH of 7.43 with a pCO2 of 34 and pO2 of 92. Chest x-ray is essentially unchanged. There is a right-sided pleural effusion. Left lung is unchanged. Ultrasound of the chest was done and the patient was found to have a 7.6 cm pocket of pleural fluid in the posterior right hemithorax. The hemoglobin is at 6.8 with a white cell count of 8.7 and a platelet count of 79. BUN 68 with a creatinine of 2.7. Sodium levels at 135. Objective - Vital Signs Vital signs: Vital Signs Temp 99.2 F 12/22/24 09:00 Pulse 125 H 12/22/24 09:00 Resp 26 H 12/22/24 09:00 BP 137/58 12/22/24 09:00 Pulse Ox 98 12/22/24 09:00 FiO2 35 12/22/24 08:11 Intake & Output 12/21/24 12/22/24 12/22/24 18:59 06:59 18:59 Intake Total 776.328 855.616 494.195 Output Total 4833 265 100 Balance -4056.672 590.616 394.195 Weight 80.1 kg 78.1 kg Intake: IV 261 276 66 .9 KVO 225 240 60 0.9 pressure bag 36 36 6 Intake, IV Titration 115.328 579.616 118.195 Amount Dextrose 5% in Water 100 100 ml @ 618 mls/hr IV .Q10M ONE with Amiodarone 150 mg Rx#:[id number] Norepinephrine 4 mg In 98.112 246.538 118.195 Sodium Chloride 0.9% 250 ml @ 0.03 MCG/KG/MIN 9. 464 mls/hr IV .Q24H [facility] Rx#:[id number] Piperacillin-Tazobactam 3 200 .375 gm In Sodium Chloride 0.9% 100 ml @ 25 mls/hr IVPB Q8H [facility] Rx#: [id number] propofoL 1,000 mg In 17.216 33.078 Empty Bag 1 bag @ 15 MCG/ KG/MIN 7.614 mls/hr IV . Q13H9M [facility] Rx#:[id number] Oral 0 Tube Feeding 0 0 Blood Product 310 Rc As-1 Unit 310 [id number] Hemodialysis 400 Output: Gastric Drainage 100 50 100 Urine 283 215 0 Stool 50 Hemodialysis 2400 Hemodialysis Net Amount 1999 Other: Voiding Method Indwelling Catheter Indwelling Catheter ABP, PAP, CO, CI - Last Documented Arterial Blood Pressure 127/57 - Exam The patient appeared well nourished and normally developed. Vital signs as documented. The patient remains intubated on mechanical ventilator. The patient is low-dose propofol, following simple commands. Continues to have profound weakness in all 4 extremities. Head exam is unremarkable. No scleral icterus or corneal arcus noted. Neck is without jugular venous distension, thyromegaly, or carotid bruits. Carotid upstrokes are brisk bilaterally. Orogastric and orotracheal tube are both in place. Lungs irregular breathing and diminished breath sound right compared to the left related to pleural effusion. Cardiac exam reveals the PMI to be normally sized and situated. Rhythm is regular. First and second heart sounds normal. No murmurs, rubs or gallops. Abdominal exam reveals normal bowel sounds, no masses, no organomegaly and no aortic enlargement. Extremities are edematous and both femoral and pedal pulses are normal. The pulses in general are diminished and the extremities are edematous. Examination of the skin revealed no evidence of significant rashes, suspicious appearing nevi or other concerning lesions. Neurologically, the patient is low-dose propofol, able to communicate, no focal neurological deficit as the patient has global generalized weakness in all 4 extremities. - Labs CBC & Chem 7: 12/22/24 04:44 12/22/24 04:44 Labs: Abnormal Lab Results - Last 24 Hours (Table) 12/19/24 12/21/24 12/21/24 Range/Units 06:00 11:52 12:21 RBC (4.30-5.90) m/uL Hgb (13.0-17.5) gm/dL Hct (39.0-53.0) % RDW (11.5-15.5) % ABG pCO2 (35-45) mmHg ABG O2 Saturation (94-97) % Hemoglobin (13.0-17.5) gm/dL Sodium (137-145) mmol/L BUN (9-20) mg/dL Creatinine (0.66-1.25) mg/dL POC Glucose (mg/dL) 113 H 112 H (70-110) mg/dL Calcium (8.4-10.2) mg/dL Total Protein (6.3-8.2) g/dL Albumin (3.5-5.0) g/dL Urine Protein (Negative) Urine Blood (Negative) Crossmatch See Detail 12/21/24 12/21/24 12/22/24 Range/Units 17:50 18:33 04:44 RBC 2.10 L (4.30-5.90) m/uL Hgb 6.8 L* (13.0-17.5) gm/dL Hct 20.9 L (39.0-53.0) % RDW 17.3 H (11.5-15.5) % ABG pCO2 (35-45) mmHg ABG O2 Saturation (94-97) % Hemoglobin (13.0-17.5) gm/dL Sodium (137-145) mmol/L BUN (9-20) mg/dL Creatinine (0.66-1.25) mg/dL POC Glucose (mg/dL) 113 H (70-110) mg/dL Calcium (8.4-10.2) mg/dL Total Protein (6.3-8.2) g/dL Albumin (3.5-5.0) g/dL Urine Protein Trace H (Negative) Urine Blood Small H (Negative) Crossmatch 12/22/24 12/22/24 Range/Units 04:44 04:44 RBC (4.30-5.90) m/uL Hgb (13.0-17.5) gm/dL Hct (39.0-53.0) % RDW (11.5-15.5) % ABG pCO2 34 L (35-45) mmHg ABG O2 Saturation 97.6 H (94-97) % Hemoglobin 6.7 L* (13.0-17.5) gm/dL Sodium 135 L (137-145) mmol/L BUN 68 H (9-20) mg/dL Creatinine 2.72 H (0.66-1.25) mg/dL POC Glucose (mg/dL) (70-110) mg/dL Calcium 8.1 L (8.4-10.2) mg/dL Total Protein 5.3 L (6.3-8.2) g/dL Albumin 2.8 L (3.5-5.0) g/dL Urine Protein (Negative) Urine Blood (Negative) Crossmatch Microbiology - Last 24 Hours (Table) 12/06/24 15:30 Acid Fast Bacilli Smear - Preliminary Pleural Fluid Acid Fast Bacilli Culture - Preliminary 12/18/24 12:40 Blood Culture - Preliminary Blood Assessment and Plan Plan: Acute hypoxemic and hypercapnic respiratory failure, multifactorial, requiring intubation, and mechanical ventilation, on December 12, 2024. The patient has a large right-sided pleural effusion. Oxygenation is stable while being on mechanical ventilator. Chest x-ray remains unchanged on today's evaluation. No evidence of any pneumothorax. Chest x-ray remains unchanged and the patient continues to have a large right-sided pleural effusion. This has not affected his oxygenation. Weaning parameters remain poor. Chest x-ray shows a 7. 6 cm pocket of pleural effusion involving the right posterior right hemithorax. S/P right sided thoracentesis, with a right-sided iatrogenic pneumothorax, recovered. Pleural fluid was exudative and there is reaccumulation of the right-sided pleural effusion, has a recurrent right-sided pleural effusion, confirmed by an ultrasound of the chest S/P right Thora vent placement, with removal on December 12, 2024. No residual pneumothorax. Multiple myeloma, relapsed high 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, the patient completed 7 cycles of RVD in May 2024 achieving very good partial response with 99% reduction in kappa light chain. The patient has been on maintenance Revlimid 10 mg daily, which he stopped taking September 2024 for unclear reasons, and the patient is currently on Revlimid, Cytoxan and Decadron. The patient is scheduled to undergo treatment with Revlimid and Cytoxan today and the treatment will be given with a 50% reduction in the dose post hemodialysis. Atrial fibrillation with rapid ventricular response. Currently on amiodarone drip. Rate is under better control. No anticoagulants. Anion gap metabolic acidosis, recovered Hyperkalemia, improved Acute on chronic anemia with questionable upper GI source of bleeding as the patient has some coffee-ground gastric material.. FMS still in place.the patient is currently NPO. No evidence of any acute bleeding and the patient is hemoglobin is stable for now Tumor lysis syndrome, improved Acute kidney injury with bilateral hydronephrosis, and significantly worsening renal function. The patient is currently undergoing daily hemodialysis, last hemodialysis session was yesterday with a total of 2 L of ultrafiltration Hypercalcemia, resolved. Chronic anemia. Hypertension. History of hyperlipidemia. History of obstructive sleep apnea syndrome, maintained on home CPAP. Diarrhea, and the patient has a fecal management system in place Plan: Keep the patient low-dose propofol Weaning parameters are poor, not completely ready for weaning. Will check weaning paralysis periodically I will keep the patient on assist-control mode of mechanical ventilation without any vent changes Change IV fluids to KVO Continue hemodialysis and another session will be done today We will consider drainage of the right-sided pleural effusion if the weaning parameters remain weak and suboptimal. For now, the procedure is placed on hold as the family is going to meet oncology and discuss goals of care. Titrate norepinephrine Continue amiodarone drip Monitor atrial fibrillation No anticoagulants Start low-dose enteral feeding for nutritional support with vital HP at rate of 10 cc an hour No diarrhea for now Continue empiric antibiotic coverage with IV Zosyn Received chemotherapy with a combination of Velcade and Cytoxan with a 50% dose reduction post hemodialysis, given to him on 12/21/2024 Transfused with a unit of packed RBC Continue IV Protonix 40 mg every 24 hours Nephrology on the case Hematology oncology is on the case Prognosis remains poor based on above-mentioned comorbidities. Will continue to follow make further recommendations based on his progress. Critical care evaluation 31 minutes. Time with Patient: Greater than 30
--- NOTE | 2024-12-22 14:50 | P.PN ---
Subjective Patient is seen for follow-up for acute kidney injury. Patient is intubated, FiO2 at 35%. He is awake and following commands. Started hemodialysis on 12/19/2024 for oliguric acute kidney injury and hyperkalemia Urine output at 10-25 cc/h Maintained on low-dose Levophed. Family wishes to hold dialysis until further discussion with oncology. Patient had expressed his wishes that he would not want long-term dialysis. Objective - Vital Signs Vital signs: Vital Signs Temp 99.6 F 12/22/24 12:00 Pulse 78 12/22/24 14:30 Resp 20 12/22/24 14:30 BP 113/61 12/22/24 14:30 Pulse Ox 97 12/22/24 14:30 FiO2 35 12/22/24 12:11 Intake & Output 12/21/24 12/22/24 12/22/24 18:59 06:59 18:59 Intake Total 776.328 086.679 9250.523 Output Total 4833 265 225 Balance -4056.672 590.616 807.523 Weight 80.1 kg 78.1 kg 78.1 kg Intake: IV 261 276 204 .9 KVO 225 240 180 0.9 pressure bag 36 36 24 Intake, IV Titration 115.328 579.616 208.523 Amount Dextrose 5% in Water 100 100 ml @ 618 mls/hr IV .Q10M [facility] with Amiodarone 150 mg Rx#:[id number] Norepinephrine 4 mg In 98.112 246.538 208.523 Sodium Chloride 0.9% 250 ml @ 0.03 MCG/KG/MIN 9. 464 mls/hr IV .Q24H [facility] Rx#:[id number] Piperacillin-Tazobactam 3 200 .375 gm In Sodium Chloride 0.9% 100 ml @ 25 mls/hr IVPB Q8H [facility] Rx#: [id number] propofoL 1,000 mg In 17.216 33.078 Empty Bag 1 bag @ 15 MCG/ KG/MIN 7.614 mls/hr IV . Q13H9M [facility] Rx#:[id number] Oral 0 Tube Feeding 0 0 Blood Product 620 Rc As-1 Unit 310 [id number] Hemodialysis 400 Output: Gastric Drainage 100 50 100 Urine 283 215 125 Stool 50 Hemodialysis 2400 Hemodialysis Net Amount 1999 Other: Voiding Method Indwelling Catheter Indwelling Catheter Indwelling Catheter ABP, PAP, CO, CI - Last Documented Arterial Blood Pressure 114/44 - Exam Patient is intubated and on the vent. Follows commands Examination of the heart S1 and S2 Examination of the lungs bilateral breath sounds are heard Abdomen is soft nontender Examination of lower extremities shows 1+ edema - Labs CBC & Chem 7: 12/22/24 04:44 12/22/24 04:44 Labs: Abnormal Lab Results - Last 24 Hours (Table) 12/19/24 12/21/24 12/21/24 Range/Units 06:00 17:50 18:33 RBC (4.30-5.90) m/uL Hgb (13.0-17.5) gm/dL Hct (39.0-53.0) % RDW (11.5-15.5) % Plt Count (150-450) k/uL Lymphocytes # (1.0-4.8) k/uL ABG pCO2 (35-45) mmHg ABG O2 Saturation (94-97) % Hemoglobin (13.0-17.5) gm/dL Sodium (137-145) mmol/L BUN (9-20) mg/dL Creatinine (0.66-1.25) mg/dL POC Glucose (mg/dL) 113 H (70-110) mg/dL Calcium (8.4-10.2) mg/dL Total Protein (6.3-8.2) g/dL Albumin (3.5-5.0) g/dL Urine Protein Trace H (Negative) Urine Blood Small H (Negative) Crossmatch See Detail 12/22/24 12/22/24 12/22/24 Range/Units 04:44 04:44 04:44 RBC 2.10 L (4.30-5.90) m/uL Hgb 6.8 L* (13.0-17.5) gm/dL Hct 20.9 L (39.0-53.0) % RDW 17.3 H (11.5-15.5) % Plt Count 79 L (150-450) k/uL Lymphocytes # 0.4 L (1.0-4.8) k/uL ABG pCO2 34 L (35-45) mmHg ABG O2 Saturation 97.6 H (94-97) % Hemoglobin 6.7 L* (13.0-17.5) gm/dL Sodium 135 L (137-145) mmol/L BUN 68 H (9-20) mg/dL Creatinine 2.72 H (0.66-1.25) mg/dL POC Glucose (mg/dL) (70-110) mg/dL Calcium 8.1 L (8.4-10.2) mg/dL Total Protein 5.3 L (6.3-8.2) g/dL Albumin 2.8 L (3.5-5.0) g/dL Urine Protein (Negative) Urine Blood (Negative) Crossmatch Microbiology - Last 24 Hours (Table) 12/06/24 15:30 Acid Fast Bacilli Smear - Preliminary Pleural Fluid Acid Fast Bacilli Culture - Preliminary 12/18/24 12:40 Blood Culture - Preliminary Blood Assessment and Plan Assessment: 1. Acute kidney injury most likely ATN currently nonoliguric, UA is benign ultrasound does not show any evidence of obstruction. Serum creatinine 1.4 on admission and 0.8 on 07/27/2024. BUN remains significantly elevated. Urine output at 10 to 20 cc an hour. Started hemodialysis on 12/19/2024 for oliguric acute kidney injury. 2. Right pleural effusion status post thoracentesis with development of pneumothorax status post Thora vent with resolution of pneumothorax 3. Anemia with no active bleeding noted. Underlying history of multiple myeloma 4. Multiple myeloma being followed by Dr. Aden. Maintained on chemotherapy 5. Hypercalcemia on initial admission possibly related to hypovolemia, now improved to 9.4. Patient has had significant hypercalcemia previously most likely related to multiple myeloma in October 2023 6. Anion gap metabolic acidosis secondary to acute kidney injury 7. Hyperkalemia associated with acute kidney injury, improved with dialysis and improving urine output. Plan: Dialysis on hold until further decision by family. Patient had expressed his wishes earlier that he did not want renal replacement therapy. If aggressive medical care is desired patient will need another dialysis catheter as the current catheter has had poor flows.
[2024-12-22 17:19] LABS: Glucose,Whole Blood 128 mg/dL (70-110)
[2024-12-22 17:28] LABS: Anisocytosis Slight; Basophils % (A) 0 %; Eosinophils % (A) 0 %; HGB 7.6 gm/dL (13.0-17.5); Lymphocytes # (A) 0.2 k/uL (1.0-4.8); Lymphocytes % (A) 2 %; MCH 32.6 pg (25.0-35.0); MCV 98.8 fL (80.0-100.0); Macrocytosis Slight; Mean Platelet Volume 13.5; Monocytes # (A) 0.2 k/uL (0-1.0); Monocytes % (A) 3 %; Neutrophils # (A) 8.2 k/uL (1.3-7.7); Neutrophils % (A) 94 %; RBC 2.33 m/uL (4.30-5.90); RDW 17.1 % (11.5-15.5); WBC 8.7 k/uL (3.8-10.6)
[2024-12-22 17:42] LABS: Prothrombin Time 10.9 sec (10.0-12.5)
[2024-12-22] MEDS: DESMOPRESSIN ACETATE 20 MCG in SODIUM CHLORIDE 0.9% 50 ML IVPB ONE (17:55)
[2024-12-22 17:59] LABS: Platelet Count 68 k/uL (150-450)
--- NOTE | 2024-12-22 18:20 | P.PN ---
Subjective Progress Note Date: 12/22/24 Remains in ICU, ventilated. Pt is opening his eyes and responding to verbal commands. Wbc 8.7, hgb 6.8, plt 79,000. 1 unit PRBCs ordered. Continues HD. Plan for possible repeat thoracentesis Objective - Vital Signs Vital signs: Vital Signs Temp 98.5 F 12/22/24 16:00 Pulse 78 12/22/24 17:00 Resp 21 12/22/24 17:00 BP 107/63 12/22/24 17:00 Pulse Ox 96 12/22/24 17:00 FiO2 35 12/22/24 16:00 Intake & Output 12/21/24 12/22/24 12/22/24 18:59 06:59 18:59 Intake Total 776.328 713.316 3379.905 Output Total 4833 265 320 Balance -4056.672 297.731 6703.905 Weight 80.1 kg 78.1 kg 78.1 kg Intake: IV 261 276 373 .9 KVO 225 240 240 0.9 pressure bag 36 36 33 Piperacillin-Tazobactam 3 100 .375 gm In Sodium Chloride 0.9% 100 ml @ 25 mls/hr IVPB Q8H [facility]KY Rx#: [id number] Intake, IV Titration 115.328 579.616 361.905 Amount Dextrose 5% in Water 100 100 ml @ 618 mls/hr IV .Q10M ONE with Amiodarone 150 mg Rx#:[id number] Norepinephrine 4 mg In 98.112 246.538 307.423 Sodium Chloride 0.9% 250 ml @ 0.03 MCG/KG/MIN 9. 464 mls/hr IV .Q24H [facility]KY Rx#:[id number] Piperacillin-Tazobactam 3 200 .375 gm In Sodium Chloride 0.9% 100 ml @ 25 mls/hr IVPB Q8H [facility] Rx#: [id number] propofoL 1,000 mg In 17.216 33.078 54.482 Empty Bag 1 bag @ 15 MCG/ KG/MIN 7.614 mls/hr IV . Q13H9M [facility]KY Rx#:[id number] Oral 0 Tube Feeding 0 0 30 Blood Product 620 Rc As-1 Unit 310 [id number] Hemodialysis 400 Output: Gastric Drainage 100 50 100 Urine 283 215 220 Stool 50 Hemodialysis 2400 Hemodialysis Net Amount 1999 Other: Voiding Method Indwelling Catheter Indwelling Catheter Indwelling Catheter # Bowel Movements 1 ABP, PAP, CO, CI - Last Documented Arterial Blood Pressure 128/47 - Constitutional General appearance: Present: no acute distress - Respiratory Details: ventilated breath sounds - Cardiovascular Details: skin warm and dry - Integumentary Integumentary: Absent: cyanotic - Labs CBC & Chem 7: 12/22/24 17:20 12/22/24 04:44 Labs: Abnormal Lab Results - Last 24 Hours (Table) 12/19/24 12/21/24 12/21/24 Range/Units 06:00 17:50 18:33 RBC (4.30-5.90) m/uL Hgb (13.0-17.5) gm/dL Hct (39.0-53.0) % RDW (11.5-15.5) % Plt Count (150-450) k/uL Lymphocytes # (1.0-4.8) k/uL ABG pCO2 (35-45) mmHg ABG O2 Saturation (94-97) % Hemoglobin (13.0-17.5) gm/dL Sodium (137-145) mmol/L BUN (9-20) mg/dL Creatinine (0.66-1.25) mg/dL POC Glucose (mg/dL) 113 H (70-110) mg/dL Calcium (8.4-10.2) mg/dL Total Protein (6.3-8.2) g/dL Albumin (3.5-5.0) g/dL Urine Protein Trace H (Negative) Urine Blood Small H (Negative) Crossmatch See Detail 12/22/24 12/22/24 12/22/24 Range/Units 04:44 04:44 04:44 RBC 2.10 L (4.30-5.90) m/uL Hgb 6.8 L* (13.0-17.5) gm/dL Hct 20.9 L (39.0-53.0) % RDW 17.3 H (11.5-15.5) % Plt Count 79 L (150-450) k/uL Lymphocytes # 0.4 L (1.0-4.8) k/uL ABG pCO2 34 L (35-45) mmHg ABG O2 Saturation 97.6 H (94-97) % Hemoglobin 6.7 L* (13.0-17.5) gm/dL Sodium 135 L (137-145) mmol/L BUN 68 H (9-20) mg/dL Creatinine 2.72 H (0.66-1.25) mg/dL POC Glucose (mg/dL) (70-110) mg/dL Calcium 8.1 L (8.4-10.2) mg/dL Total Protein 5.3 L (6.3-8.2) g/dL Albumin 2.8 L (3.5-5.0) g/dL Urine Protein (Negative) Urine Blood (Negative) Crossmatch 12/22/24 12/22/24 Range/Units 17:17 17:20 RBC 2.33 L (4.30-5.90) m/uL Hgb 7.6 L (13.0-17.5) gm/dL Hct 23.0 L (39.0-53.0) % RDW 17.1 H (11.5-15.5) % Plt Count (150-450) k/uL Lymphocytes # (1.0-4.8) k/uL ABG pCO2 (35-45) mmHg ABG O2 Saturation (94-97) % Hemoglobin (13.0-17.5) gm/dL Sodium (137-145) mmol/L BUN (9-20) mg/dL Creatinine (0.66-1.25) mg/dL POC Glucose (mg/dL) 128 H (70-110) mg/dL Calcium (8.4-10.2) mg/dL Total Protein (6.3-8.2) g/dL Albumin (3.5-5.0) g/dL Urine Protein (Negative) Urine Blood (Negative) Crossmatch Microbiology - Last 24 Hours (Table) 12/06/24 15:30 Acid Fast Bacilli Smear - Preliminary Pleural Fluid Acid Fast Bacilli Culture - Preliminary 12/18/24 12:40 Blood Culture - Preliminary Blood Assessment and Plan (1) Hypercalcemia Current Visit: Yes Status: Acute Priority: High Code(s): E83.52 - HYPERCALCEMIA SNOMED Code(s): 67108904 (2) [place] light chain myeloma Current Visit: Yes Status: Acute Priority: High Code(s): C90.00 - MULTIPLE MYELOMA NOT HAVING ACHIEVED REMISSION SNOMED Code(s): 097745880 (3) New onset atrial fibrillation Current Visit: Yes Status: Acute Code(s): I48.91 - UNSPECIFIED ATRIAL FIBRILLATION SNOMED Code(s): 03674640 Plan: 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 -Completed 7 cycles of RVD in May 2024 achieving very good partial response with 99% reduction in kappa light chain -Had been on maintenance Revlimid 10 mg daily, which he stopped taking September 2024 for unclear reasons, he then developed progressive disease and symptoms of weakness, MICKEY, anemia, and thrombocytopenia -Admitted with failure to thrive with weakness, dehydration -CTA ruled out PE but reported pleural-based nodules with large right sided pleural effusion, peritoneal carcinomatosis, and retroperitoneal lymphadenopathy -720cc Right-sided thoracentesis performed, post procedure pneumo, thoravent placed. -Cytology positive for plasma cell myeloma -Urine kappa/lambda ratio elevated at 60.4, UPEP positive for monoclonal protein. Concern there is multi-organ involvement of his myeloma. Typically myeloma is rather chemo sensitive and can achieve a quick response. Also, pt responded very well to previous regimen. Discussed with family about initiating CyBorD inpatient to try to achieve disease control. They were agreeable to the same -Cycle 1 of CyBorD was initiated on 12/14/2024. S/p Day 8, velcade/cytoxan on 12/21/24. Spoke with PharmD regarding dosing and HD. Cytoxan decreased by 50%, no dose adjustment recommended for Velcade, chemo to be given after HD -S/p IVIG for hypogammaglobulinemia -Hgb 6.8 today, 1 unit PRBCs ordered. Continue to closely monitor CBC -We will continue to closely monitor course of hospitalization. Hopefully patient can be weaned off of ventilation over the next couple days, otherwise will need to discuss trach and peg tube placement and further discuss goals of care and patient's wishes IMCKEY: -Kidney function has been declining during admit -Uric acid elevated at 17.5. S/p 1 dose Elitek. Uric acid now normal -Appears to be multifactorial, r/t to ATN, multiple myeloma involvement, and possible component of TLS, although TLS is rare with MM -HD has been started, kidney function improving -Family agreed to permacath placement -Nephrology following Diarrhea: -Has been noting increased watery stool in rectal tube. Stool is dark. -Tube feedings were held, and outpt slowed down -Continue to monitor for GI bleed, and monitor CBC Hypercalcemia -Noted to have calcium of 10.5 on admission -Likely multifactorial given dehydration on admission along with relapsed multiple myeloma -Received IV fluids with no significant elevation in his calcium subsequently -For now, we will hold off on bisphosphonate and continue to assess calcium -If he has progressive rise in calcium, bisphosphonate can be given
--- NOTE | 2024-12-22 18:26 | P.PN ---
Subjective Progress Note Date: 12/22/24 patient is 79-year-old gentleman with past medical history significant for multiple myeloma, hypertension, hyperlipidemia presented to the ER because of abnormal labs. Patient normally sees Dr. Broderick and was on systemic treatment which apparently had stopped taking. Patient had blood work drawn outpatient and was told by the supervisor floor assembly to come to the ER. Patient states over the last couple of days he has been having increasing shortness of breath. Shortness of breath was present at rest as on exertion. Patient was complaining of being lethargic and weakness. Patient also complaining of productive cough with occasional episodes of hemoptysis. Denies any chest pain. There is no complaint of fever or chills. There is no complaint of orthopnea or PND. Patient denies any nausea, vomiting, pain. Patient denies any lightheaded or dizziness. Initial lab work done in the ER showed WBC 3.8, hemoglobin 9, platelet count 134 sodium 142, potassium 4, BUN 40, creatinine 1.40 glucose 103, lactate 1.2, calcium 10.5, magnesium 1.4 bilirubin 0.7, AST 27, ALT 11, troponin 0.018, proBNP 1550 Influenza A not detected Influenza B not detected RSV not detected COVID-19 not detected EKG done in the ER showed heart rate of , no ST segment elevation or depression seen, no T-wave inversions seen. Chest x-ray done in the ER showed patchy infiltrative opacity throughout the right lung with small to moderate size right pleural effusion. Questionable air-fluid level versus overlying skinfold is indeterminate for cavitary lesion or abscess. Recommend CT chest for further evaluation, consolidation in the left lung apex CT chest PE protocol done showed no definite acute PE within the vasculature, significant progression of metastatic disease with numerous pleural-based metastatic deposits and involvement of the left-sided ribs additionally there is peritoneal carcinomatosis in the partially visualized upper abdomen. Patient admitted to internal medicine service 12/07. Patient seen and examined. Status post right-sided thoracentesis with removal of 720 cc of fluid. Blood work done today showed WBC 4.9, hemoglobin 8.8, platelet count 138, sodium 143, potassium 4.1, BUN 33, creatinine 1.74, calcium 9.7 Patient had right-sided Thora vent placed this morning. Currently on 4 L of oxy gen. 12/08. Patient seen and examined. Vital signs done this morning showedTemp 98, heart rate 98, respirations 30, blood pressure 125/84, currently on 2 L of oxygen. Denies any shortness of breath at rest. Currently has a Thora vent in place. Chest x-ray done this morning shows right-sided pleural effusion, right- sided chest tube in place with residual pneumothorax. 12/09. Old male patient currently sleeping, he was agitated and restless overnight and he was prescribed Seroquel 25 mg which made him calm He still tachypneic with a breathing rate around 28, he is saturating high 90s on 3 L oxygen via nasal cannula Hemoglobin slightly trending down to 7.7 and creatinine up to 1.9 His proBNP is 1550 and procalcitonin negative at 0.16 Chest x-ray reviewed by myself showing right more than left infiltrate but looks better than 2 days ago Renal ultrasound showing no hydronephrosis finger right renal cyst He is currently kept on Zosyn. On home dose of Eliquis 2.5 mg. He had pneumothorax on the right side status post Thora vent, currently he has minimal discharge from his right Thora vent 12/10 Patient moved out of the ICU to select unit He is more awake today but still confused, he was trying to pull out his lines and Thora vent. He is mildly tachypneic with talking. He can tell he is in the hospital but also still mildly confused. Serevent was Today. Repeat chest x-ray showing mild improvement in the right pneumothorax, I reviewed the chest x-ray by myself. He remains on Zosyn and home dose of Eliquis 2.5 Will going to add small dose of Seroquel 12.5. 12/11 Patient more awake trying to talk Still feel short of breath although slightly better than yesterday, breathing r ate around 22 compared to 28 yesterday, his right upper chest Thora vent is in place and capped Repeat chest x-ray this morning showing right pleural effusion more than left with pulmonary vascular congestion suspicious for CHF. Currently patient off IV fluid He is on Zosyn and Eliquis 2.5 mg. 12/12 Patient in the morning was awake and alert but slightly agitated, he had a sitter at bedside. Thora vent was taken out after it was capped yesterday. His mentation was getting worse through the day and he became more tachypneic and tachycardic and he has to be placed on BiPAP. Repeat chest x-ray showing moderate to large right pleural effusion and evidence of CHF. Patient was moved to the ICU for more monitoring pH was 7.2 worsening to deputy fire chief to 7.08 and pCO2 was elevated at 58 wor sened to 92. Creatinine also worsened up to 2.7 and sodium 146., With worsening breathing patient had to be intubated and placed on mechanical ventilation 12/13 Patient remains in the ICU intubated and sedated His breathing more quiet today. Abdomen soft Hemoglobin dropped to 7.0. Platelet count stable at 139, creatinine stable or slightly improved 2.7 down to 2.6. Patient placed on normal saline 75 mL/h. 12/14 Patient remains intubated and sedated He does not need pressors and Zosyn was discontinued He received some IV fluid Chest x-ray still showing pulmonary vascular congestion Pathology from pleural fluid came back positive for malignancy Sister and at bedside, oncology team discussing the case with them. Patient still at risk. 12/15 Patient remains intubated on mechanical ventilation in the ICU Family yesterday discussed the case with oncology team and patient remains full code and he was started on chemotherapy. Imodium can be stopped Chest x-ray showing persistent right-sided infiltrate most likely secondary to fluid and malignancy. Prognosis remains guarded and patient still high risk 12/16 Patient remains intubated and sedated Patient has no events overnight He was getting chemotherapy No IV fluid, no antibiotic chest tube feeding, he got 1 dose of 80 mg of Lasix yesterday He has good urine output of about 15 to 20 mL/h Also has low-grade temperature 100.2 yesterday and 9.9 today. Repeat chest x-ray showing CHF for right pleural effusion which is malignant p leural effusion Patient continue to get chemotherapy through tomorrow Patient has negative C. diff test 12/17 Patient still getting chemotherapy His creatinine gets worse and he has hemodialysis catheter placed in He remains intubated in the ICU on mechanical ventilation Breathing rate about 27 Creatinine worse at 5.0. Phosphorus 12.7. Glucose controlled. pH 7.23 12/18 Patient remains in the ICU intubated and sedated. Patient is today finished his chemotherapy per oncology team. Today he is not getting chemotherapy there is another cycle in order for chemotherapy on 12/21. However patient today developing worsening hypotension requiring Levophed and also started on sodium bicarb. Potassium and creatinine trending up, currently 5.6 with a plan for hemodialysis per wet pour mixer. Hemoglobin 7.0. Leukocytosis is increased but pH is low at 7.1. Chest x-ray showing same malignant pleural effusion. Prognosis tomy guarded 12/19/2024 Patient is seen in follow-up today continues in the ICU with multiple consultations following maintained on mechanical ventilation. Kidney functions are worsening with nephrology following and vascular surgery was consulted and dialysis catheter was placed. Patient scheduled to undergo hemodialysis today. Patient continues on pressor support which is being weaned and overall prognosis remains significantly guarded. Hemoglobin is stable today and being given a unit of PRBC. Will follow-up on repeat labs and monitor closely. 12/20/2024 Patient is seen and evaluated in the ICU continues to be on mechanical ventilation FiO2 is 35% with a PEEP of 5. Patient is undergoing sedation holidays and currently not following commands. Patient is receiving hemodialysis and kidney functions are improving although BUN remains elevated. Patient will receive dialysis again. Patient is making urine. Patient does have fecal management system and recommend C. difficile although stool was noted to be black and loose. Prognosis is extremely guarded at this time. 12/21/2024 Patient is seen in follow-up continues on mechanical ventilation with an FiO2 of 35% and PEEP is 5. Patient undergoing sedation holidays and does open eyes and eye track although significantly weak unable to follow commands. Patient with indwelling Escobar catheter monitoring intake and output and urine appears cloudy, will send urine for evaluation. Hemoglobin 7.1 and will likely need a unit of blood. Patient continued on hemodialysis and will possibly plan for unit of blood with next session of dialysis. Patient is afebrile and maintained on Zo syn and will continue. Low-dose pressor support remains at this time and weaning as tolerated. 12/22/2024 Patient is seen in follow-up today remains critically ill although showing some improvements. Patient is maintained on mechanical ventilation and not ready for weaning with chest x-ray showing pleural effusion recurrence and chest ultrasound was done with discussion of possible thoracentesis. Hemoglobin low and will be given a unit of blood and will discuss with oncology regarding treatment plans. Patient is ongoing chemotherapy at this time and prognosis remains extremely guarded. Patient is maintained on low-dose pressor support, continued IV Zosyn, and amiodarone drip as patient was found to be in atrial fibrillation with RVR last night. Multiple consultations following. Patient is mildly sedated on low-dose propofol although is awake tracking and following commands, extremely weak although is attempting to lift upper extremities. Patient will require extensive physical therapy. Review of systems: Unable to obtain as patient is on mechanical ventilation and lethargic remains on low-dose propofol Active Medications Acetaminophen (Acetaminophen Tab 325 Mg Tab) 650 mg PO Q6HR PRN PRN Reason: Fever and/ or Pain Last Admin: 12/20/24 08:29 Dose: 650 mg Albuterol/Ipratropium (Ipratropium-Albuterol 3 Ml Neb) 3 ml INHALATION RT-Q4H [facility] Last Admin: 12/22/24 15:46 Dose: 3 ml Amiodarone HCl (Amiodarone 200 Mg Tab) 200 mg PO BID [facility] Last Admin: 12/22/24 08:39 Dose: Not Given Bortezomib (Bortezomib 3.5 Mg Vial) 2.75 mg SQ ONCE ONE Stop: 12/24/24 14:01 Chlorhexidine Gluconate (Chlorhexidine Gluconate 15 Ml Cup) 15 ml MUCOUS MEM BID [facility] Last Admin: 12/22/24 08:39 Dose: 15 ml Dexamethasone (Dexamethasone 4 Mg Tab) 40 mg PO DAILY [facility] Stop: 12/25/24 09:01 Last Admin: 12/22/24 08:39 Dose: 40 mg Dexamethasone (Dexamethasone 4 Mg Tab) 40 mg PO DAILY [facility] Stop: 01/02/25 09:01 Dextrose/Water (Dextrose 50% Syringe 50 Ml) 25 ml IVP PER PROTOCOL PRN; Protocol PRN Reason: Hypoglycemia Dextrose/Water (Dextrose 50% Syringe 50 Ml) 50 ml IVP PER PROTOCOL PRN; Protocol PRN Reason: Hypoglycemia Famotidine (Famotidine 20 Mg/2 Ml Vial) 20 mg IVP Q7D [facility] Stop: 01/04/25 13:01 Last Admin: 12/21/24 15:15 Dose: 20 mg Hydromorphone HCl (Hydromorphone 1 Mg/Ml 1 Ml Syringe) 1 mg IVP Q4HR PRN PRN Reason: Pain Last Admin: 12/19/24 05:20 Dose: 1 mg Propofol 1,000 mg/ IV Solution 100 mls @ 7.614 mls/hr IV .Q13H9M [facility]; Protocol Last Admin: 12/22/24 15:37 Dose: 10 mcg/kg/min, 5.076 mls/hr Ondansetron HCl 16 mg/ Sodium (Chloride) 58 mls @ 232 mls/hr IVPB Q7D [facility] Stop: 01/04/25 13:14 Last Admin: 12/21/24 12:30 Dose: 232 mls/hr Norepinephrine Bitartrate 4 mg (/ Sodium Chloride) 254 mls @ 9.464 mls/hr IV .Q24H [facility]; Protocol Last Admin: 12/22/24 15:38 Dose: 0.07 mcg/kg/min, 22.083 mls/hr Cyclophosphamide 300 mg/ (Sodium Chloride) 101.5 mls @ 203 mls/hr IV Q7D [facility] Stop: 01/04/25 17:29 Last Admin: 12/21/24 17:43 Dose: 203 mls/hr Piperacillin Sod/Tazobactam (Sod 3.375 gm/ Sodium Chloride) 100 mls @ 25 mls/hr IVPB Q8H [facility]; Protocol Last Admin: 12/22/24 12:13 Dose: 25 mls/hr Amiodarone HCl 450 mg/ (Dextrose/Water) 250 mls @ 16.667 mls/hr IV .Q15H [facility]; Protocol Stop: 12/23/24 05:44 Last Admin: 12/22/24 11:51 Dose: 0.5 mg/min, 16.667 mls/hr Insulin Human Lispro (Insulin Lispro (Humalog) 100 Unit/Ml 10 Ml Vl) 0 unit SQ Q6H [facility]; Protocol Last Admin: 12/22/24 17:39 Dose: Not Given Metoclopramide HCl (Metoclopramide 5 Mg/Ml 2 Ml Vial) 10 mg IVP Q6HR [facility] Last Admin: 12/22/24 17:59 Dose: 10 mg Metoprolol Tartrate (Metoprolol Tartrate 50 Mg Tab) 50 mg PO DAILY [facility] Last Admin: 12/22/24 08:39 Dose: 50 mg Miscellaneous Information (Pneumonia Protocol Utilized 1 Each Misc) 1 each PO ONCE PRN PRN Reason: Per Protocol Miscellaneous Information (Potassium Replacement Protocol 1 Each Misc) 1 each MISCELLANE DAILY PRN; Protocol PRN Reason: Per Protocol Miscellaneous Information (Magnesium Replacement Protocol 1 Each Misc) 1 each MISCELLANE DAILY PRN; Protocol PRN Reason: Per Protocol Naloxone HCl (Naloxone 0.4 Mg/Ml 1 Ml Vial) 0.2 mg IV Q2M PRN PRN Reason: Opioid Reversal Pantoprazole Sodium (Pantoprazole 40 Mg/10 Ml Vial) 40 mg IVP DAILY [facility] Last Admin: 12/22/24 08:39 Dose: 40 mg Physical exam: GENERAL: The patient is a 79-year-old male who is alert and oriented x 2, currently undergoing sedation trial and is opening eyes and tracking, following simple commands extremely weak. No maintained on mechanical ventilation with an FiO2 of 35% and PEEP is 5, well-developed, elderly appearing, ill-appearing HEENT: Pupils are round and equally reacting to light. EOMI. No scleral icterus. No conjunctival pallor. Normocephalic, atraumatic. No pharyngeal erythema. No thyromegaly. CARDIOVASCULAR: S1 and S2 muffled, irregular, A-fib on the monitor PULMONARY: Chest is clear to auscultation, no wheezing , no crackles. Tachypneic, decreased breath sounds on the right side ABDOMEN: Soft, nontender, nondistended, normoactive bowel sounds. No palpable organomegaly. MUSCULOSKELETAL: No joint swelling or deformity. EXTREMITIES: No cyanosis, clubbing, or pedal edema. NEUROLOGICAL: Gross neurological examination did not reveal any focal deficits. Diffusely weak SKIN: No rashes. no petechiae. Assessment: Acute hypoxic respiratory failure required intubation and mechanical ventilation Malignant large pleural effusion status post thoracocentesis. On 12/13 has breathing that worsened because of CHF and large pleural effusion and patient michelle d to be placed on mechanical ventilation. Pathology sample came back positive for malignant cells Iatrogenic right pneumothorax status post Thora vent placement, which was removed on 12/13 Possible septic shock Acute kidney injury with worsening kidney functions, status post dialysis catheter placement and is now on hemodialysis as of 12/19/2024 Multiple myeloma, s/p chemotherapy 12/15-12/17 Hypercalcemia Chronic anemia Hypertension Hyperlipidemia Obstructive sleep apnea A-fib and RVR, currently on amiodarone drip 12/22/2024 GI prophylaxis DVT prophylaxis Full code Plan: Continue critical patient care in the ICU with multiple consultations following maintained on mechanical ventilation, undergoing sedation trials and is opening eyes and tracking and following simple commands. Patient maintained on low-dose propofol Started chemotherapy on 12/15-12/17. Another plan of chemotherapy today with oncology following at a reduced dose Patient is continued on Levophed and sodium bicarb, weaning as tolerated Patient with worsening kidney functions per nephrology, vascular surgery placed temporary dialysis catheter and is undergoing hemodialysis with titration. Tolerating thus far. Patient continues to make urine and does have an indwelling Escobar catheter and recommend to monitor intake and output closely. Urine appears cloudy and sent for urinalysis Continue with intubation and mechanical ventilation as per pulmonary/critical care team, with no immediate plans of extubation at this time On Lasix per wet pour mixer Antibiotics being resumed Family to discuss the need for tracheostomy and PEG tube in the near future as well as discuss treatment plan with oncology today. Family member mentioned patient wishes and stated he would not have wanted all of this including mechanical ventilation. Patient remains full code at this time. Due to multiple complex medical issues, overall prognosis is extremely guarded at this time The impression and plan of care has been dictated by Mildred Goff, Nurse Practitioner as directed. Dr. Keith MD I have performed a history and examination and MDM of this patient, discussed the same with the dictator, and agree with the dictator's assessment and plan as written ,documented as a scribe. Based on total visit time, I have performed more than 50% of the visit. Objective - Vital Signs Vital signs: Vital Signs Temp 99.2 F 12/22/24 09:00 Pulse 125 H 12/22/24 09:00 Resp 26 H 12/22/24 09:00 BP 137/58 12/22/24 09:00 Pulse Ox 98 12/22/24 09:00 FiO2 35 12/22/24 09:35 Intake & Output 12/21/24 12/22/24 12/22/24 18:59 06:59 18:59 Intake Total 776.328 855.616 827.195 Output Total 4833 265 120 Balance -4056.672 590.616 707.195 Weight 80.1 kg 78.1 kg Intake: IV 261 276 89 .9 KVO 225 240 80 0.9 pressure bag 36 36 9 Intake, IV Titration 115.328 579.616 118.195 Amount Dextrose 5% in Water 100 100 ml @ 618 mls/hr IV .Q10M ONE with Amiodarone 150 mg Rx#:[id number] Norepinephrine 4 mg In 98.112 246.538 118.195 Sodium Chloride 0.9% 250 ml @ 0.03 MCG/KG/MIN 9. 464 mls/hr IV .Q24H [facility] Rx#:[id number] Piperacillin-Tazobactam 3 200 .375 gm In Sodium Chloride 0.9% 100 ml @ 25 mls/hr IVPB Q8H [facility] Rx#: [id number] propofoL 1,000 mg In 17.216 33.078 Empty Bag 1 bag @ 15 MCG/ KG/MIN 7.614 mls/hr IV . Q13H9M [facility] Rx#:[id number] Oral 0 Tube Feeding 0 0 Blood Product 620 Rc As-1 Unit 310 [id number] Hemodialysis 400 Output: Gastric Drainage 100 50 100 Urine 283 215 20 Stool 50 Hemodialysis 2400 Hemodialysis Net Amount 2000 Other: Voiding Method Indwelling Catheter Indwelling Catheter ABP, PAP, CO, CI - Last Documented Arterial Blood Pressure 127/57 - Labs CBC & Chem 7: 12/22/24 17:20 12/22/24 04:44 Labs: Abnormal Lab Results - Last 24 Hours (Table) 12/19/24 12/21/24 12/21/24 Range/Units 06:00 11:52 12:21 RBC (4.30-5.90) m/uL Hgb (13.0-17.5) gm/dL Hct (39.0-53.0) % RDW (11.5-15.5) % Plt Count (150-450) k/uL Lymphocytes # (1.0-4.8) k/uL ABG pCO2 (35-45) mmHg ABG O2 Saturation (94-97) % Hemoglobin (13.0-17.5) gm/dL Sodium (137-145) mmol/L BUN (9-20) mg/dL Creatinine (0.66-1.25) mg/dL POC Glucose (mg/dL) 113 H 112 H (70-110) mg/dL Calcium (8.4-10.2) mg/dL Total Protein (6.3-8.2) g/dL Albumin (3.5-5.0) g/dL Urine Protein (Negative) Urine Blood (Negative) Crossmatch See Detail 0412/21/24 12/22/24 Range/Units 17:50 18:33 04:44 RBC 2.10 L (4.30-5.90) m/uL Hgb 6.8 L* (13.0-17.5) gm/dL Hct 20.9 L (39.0-53.0) % RDW 17.3 H (11.5-15.5) % Plt Count 79 L (150-450) k/uL Lymphocytes # 0.4 L (1.0-4.8) k/uL ABG pCO2 (35-45) mmHg ABG O2 Saturation (94-97) % Hemoglobin (13.0-17.5) gm/dL Sodium (137-145) mmol/L BUN (9-20) mg/dL Creatinine (0.66-1.25) mg/dL POC Glucose (mg/dL) 113 H (70-110) mg/dL Calcium (8.4-10.2) mg/dL Total Protein (6.3-8.2) g/dL Albumin (3.5-5.0) g/dL Urine Protein Trace H (Negative) Urine Blood Small H (Negative) Crossmatch 12/22/24 12/22/24 Range/Units 04:44 04:44 RBC (4.30-5.90) m/uL Hgb (13.0-17.5) gm/dL Hct (39.0-53.0) % RDW (11.5-15.5) % Plt Count (150-450) k/uL Lymphocytes # (1.0-4.8) k/uL ABG pCO2 34 L (35-45) mmHg ABG O2 Saturation 97.6 H (94-97) % Hemoglobin 6.7 L* (13.0-17.5) gm/dL Sodium 135 L (137-145) mmol/L BUN 68 H (9-20) mg/dL Creatinine 2.72 H (0.66-1.25) mg/dL POC Glucose (mg/dL) (70-110) mg/dL Calcium 8.1 L (8.4-10.2) mg/dL Total Protein 5.3 L (6.3-8.2) g/dL Albumin 2.8 L (3.5-5.0) g/dL Urine Protein (Negative) Urine Blood (Negative) Crossmatch Microbiology - Last 24 Hours (Table) 12/06/24 15:30 Acid Fast Bacilli Smear - Preliminary Pleural Fluid Acid Fast Bacilli Culture - Preliminary 12/18/24 12:40 Blood Culture - Preliminary Blood
[2024-12-22] MEDS ORDERED: HYDROmorphone 2 MG/ML 1 ML SYRINGE IVP PRN (18:57)
[2024-12-22 23:29] LABS: Glucose,Whole Blood 142 mg/dL (70-110)
[2024-12-23 05:06] LABS: ALT 20 U/L (4-49); AST 60 U/L (17-59); Albumin 2.8 g/dL (3.5-5.0); Alkaline Phosphatase 49 U/L (38-126); Anion Gap 17 mmol/L; Blood Urea Nitrogen 89 mg/dL (9-20); Calcium 7.7 mg/dL (8.4-10.2); Carbon Dioxide 18 mmol/L (22-30); Chloride 101 mmol/L (98-107); Glucose 122 mg/dL (74-99); Sodium 136 mmol/L (137-145); Total Bilirubin 0.5 mg/dL (0.2-1.3); Total Protein 5.3 g/dL (6.3-8.2)
[2024-12-23 05:08] LABS: Anisocytosis Slight; Basophils % (A) 0 %; Eosinophils % (A) 0 %; HGB 7.9 gm/dL (13.0-17.5); Lymphocytes # (A) 0.2 k/uL (1.0-4.8); Lymphocytes % (A) 2 %; MCH 32.6 pg (25.0-35.0); MCHC 32.8 g/dL (31.0-37.0); MCV 99.6 fL (80.0-100.0); Macrocytosis Slight; Mean Platelet Volume 13.3; Monocytes # (A) 0.5 k/uL (0-1.0); Monocytes % (A) 6 %; Neutrophils # (A) 7.9 k/uL (1.3-7.7); Neutrophils % (A) 90 %; RBC 2.41 m/uL (4.30-5.90); RDW 17.4 % (11.5-15.5); WBC 8.7 k/uL (3.8-10.6)
[2024-12-23 05:10] LABS: Platelet Count 64 k/uL (150-450); Potassium 4.1 mmol/L (3.5-5.1)
[2024-12-23 05:11] LABS: ABG Base Excess -4.6 mmol/L; ABG HCO3 20 mmol/L (21-25); ABG Oxygen Saturation 97.2 % (94-97); ABG PCO2 32 mmHg (35-45); ABG PO2 90 mmHg (83-108); ABG TCO2 21 mmol/L (19-24)
[2024-12-23 05:12] LABS: Allen Test Performed? no
[2024-12-23 05:39] LABS: African American GFR (CKD) 22 (>60 ml/min/1.73 sqM); Non-African American GFR(CKD) 19 (>60 ml/min/1.73 sqM)
[2024-12-23 06:29] LABS: Glucose,Whole Blood 132 mg/dL (70-110)
--- NOTE | 2024-12-23 07:50 | XR ---
EXAMINATION TYPE: XR chest 1V DATE OF EXAM: 12/23/2024 5:16 AM COMPARISON: 12/22/2024 CLINICAL INDICATION: Male, 79 years old with history of intubation, TECHNIQUE: XR chest 1V view(s) obtained. FINDINGS: The heart size is normal. The pulmonary vasculature is normal. Lung markings extending beyond the lateral two thirds portion a re not identified. Small air-fluid level may be within the right inferior lower lateral lung Mild increase densities through the right lung. Correlate for atelectasis or pneumonia. Right-sided pneumothorax is not excluded. This may be better visualized due to the suspected atelecta sis within the lung henderson. Confirmation can be performed with CT. Report was provided to the ICU at the time of interpretation. Endotracheal tube is 6.4 cm above the cleve. Nasogastric tube transverses the thorax. IMPRESSION: 1. Pneumothorax not excluded on this exam. Confirmation could be performed with CT. 2. Increasing atelectatic changes within the aerated right lung. 3. Lines and catheters discussed above. [facility], , 12/23/2024 7:48 AM
--- NOTE | 2024-12-23 08:54 | XR ---
EXAMINATION TYPE: XR chest 1V portable DATE OF EXAM: 12/23/2024 8:30 AM COMPARISON: 12/23/2024 earlier exam CLINICAL INDICATION: Male, 79 years old with history of r/o pneumo, TECHNIQUE: XR chest 1V portable view(s) obtained. FINDINGS: The heart size is normal. The pulmonary vasculature is normal. There is improved aeration of the right lung with markedly diminished opacity on the right compared t o previous earlier examination can be compatible with resolving atelectasis. There is persistent opac ity within the right lower lung field. On the current examination lung markings are evident extending to the periphery. Suspected large pneu mothorax is not evident based on the current exam findings. Some very minimal lung markings on the la teral mid lung could indicate some residual pneumothorax or artifact. Imaging can be performed as cli nically indicated. Endotracheal tube is 5 cm above the cleve. Nasogastric tube transverses the thorax. IMPRESSION: 1. No suspicious changes to suggest large pneumothorax on the current exam. 2. Suspected atelectasis largely resolved. 3. Persistent right lower lobe infiltrate with poor visualization of the diaphragm. Correlate for ate lectasis or pneumonia. [facility], , 12/23/2024 8:52 AM
[2024-12-23] MEDS: HEPARIN SODIUM 1,000 UN/ML (10ML VL) MISCELLANE ONE (09:01)
--- NOTE | 2024-12-23 10:38 | P.PN ---
Subjective Patient is seen in follow-up for acute kidney injury. Remains off vasopressors. Intubated. Urine output 25 to 30 cc an hour. Last hemodialysis December 21, 2024. Started on dialysis December 19, 2024. Plan for extubation today. Vital signs are stable. General: No resting in bed. HEENT: Intubated. LUNGS: No audible rhonchi or wheezes. HEART: Rate and Rhythm are regular. ABDOMEN: Nontender. EXTREMITITES: 1+ edema. Objective - Vital Signs Vital signs: Vital Signs Temp 97.9 F 12/23/24 04:00 Pulse 85 12/23/24 07:57 Resp 25 H 12/23/24 06:45 BP 116/54 12/23/24 06:45 Pulse Ox 96 12/23/24 06:45 FiO2 35 12/23/24 08:38 Intake & Output 12/22/24 12/23/24 12/23/24 18:59 06:59 18:59 Intake Total 1481.573 706.600 Output Total 340 360 Balance 1141.573 346.600 Weight 78.1 kg Intake: IV 396 276 .9 KVO 260 240 0.9 pressure bag 36 36 Piperacillin-Tazobactam 3 100 .375 gm In Sodium Chloride 0.9% 100 ml @ 25 mls/hr IVPB Q8H [facility] Rx#: [id number] Intake, IV Titration 425.573 280.600 Amount Amiodarone 450 mg In 250 Dextrose 5% in Water 250 ml @ 0.5 MG/MIN 16.667 mls/hr IV .Q15H [facility] Rx#: [id number] Norepinephrine 4 mg In 369.991 30.600 Sodium Chloride 0.9% 250 ml @ 0.03 MCG/KG/MIN 9. 464 mls/hr IV .Q24H [facility] Rx#:[id number] propofoL 1,000 mg In 55.582 Empty Bag 1 bag @ 15 MCG/ KG/MIN 7.614 mls/hr IV . Q13H9M [facility] Rx#:[id number] Tube Feeding 40 150 Blood Product 620 Rc As-1 Unit 310 [id number] Output: Gastric Drainage 100 Urine 240 360 Other: Voiding Method Indwelling Catheter Indwelling Catheter # Bowel Movements 1 1 ABP, PAP, CO, CI - Last Documented Arterial Blood Pressure 137/56 - Labs CBC & Chem 7: 04/05/25 04:45 12/23/24 04:45 Labs: Abnormal Lab Results - Last 24 Hours (Table) 12/22/24 12/22/24 12/22/24 Range/Units 17:17 17:20 17:20 RBC 2.33 L (4.30-5.90) m/uL Hgb 7.6 L (13.0-17.5) gm/dL Hct 23.0 L (39.0-53.0) % RDW 17.1 H (11.5-15.5) % Plt Count 68 L (150-450) k/uL Neutrophils # 8.2 H (1.3-7.7) k/uL Lymphocytes # 0.2 L (1.0-4.8) k/uL APTT 21.0 L (22.0-30.0) sec ABG pCO2 (35-45) mmHg ABG HCO3 (21-25) mmol/L ABG O2 Saturation (94-97) % Hemoglobin (13.0-17.5) gm/dL Sodium (137-145) mmol/L Carbon Dioxide (22-30) mmol/L BUN (9-20) mg/dL Creatinine (0.66-1.25) mg/dL Glucose (74-99) mg/dL POC Glucose (mg/dL) 128 H (70-110) mg/dL Calcium (8.4-10.2) mg/dL AST (17-59) U/L Total Protein (6.3-8.2) g/dL Albumin (3.5-5.0) g/dL 12/22/24 12/23/24 12/23/24 Range/Units 23:26 04:45 04:45 RBC 2.41 L (4.30-5.90) m/uL Hgb 7.9 L (13.0-17.5) gm/dL Hct 24.0 L (39.0-53.0) % RDW 17.4 H (11.5-15.5) % Plt Count 64 L (150-450) k/uL Neutrophils # 7.9 H (1.3-7.7) k/uL Lymphocytes # 0.2 L (1.0-4.8) k/uL APTT (22.0-30.0) sec ABG pCO2 (35-45) mmHg ABG HCO3 (21-25) mmol/L ABG O2 Saturation (94-97) % Hemoglobin (13.0-17.5) gm/dL Sodium 136 L (137-145) mmol/L Carbon Dioxide 18 L (22-30) mmol/L BUN 89 H (9-20) mg/dL Creatinine 3.03 H (0.66-1.25) mg/dL Glucose 122 H (74-99) mg/dL POC Glucose (mg/dL) 142 H (70-110) mg/dL Calcium 7.7 L (8.4-10.2) mg/dL AST 60 H (17-59) U/L Total Protein 5.3 L (6.3-8.2) g/dL Albumin 2.8 L (3.5-5.0) g/dL 12/23/24 12/23/24 Range/Units 05:07 06:27 RBC (4.30-5.90) m/uL Hgb (13.0-17.5) gm/dL Hct (39.0-53.0) % RDW (11.5-15.5) % Plt Count (150-450) k/uL Neutrophils # (1.3-7.7) k/uL Lymphocytes # (1.0-4.8) k/uL APTT (22.0-30.0) sec ABG pCO2 32 L (35-45) mmHg ABG HCO3 20 L (21-25) mmol/L ABG O2 Saturation 97.2 H (94-97) % Hemoglobin 7.1 L (13.0-17.5) gm/dL Sodium (137-145) mmol/L Carbon Dioxide (22-30) mmol/L BUN (9-20) mg/dL Creatinine (0.66-1.25) mg/dL Glucose (74-99) mg/dL POC Glucose (mg/dL) 132 H (70-110) mg/dL Calcium (8.4-10.2) mg/dL AST (17-59) U/L Total Protein (6.3-8.2) g/dL Albumin (3.5-5.0) g/dL Microbiology - Last 24 Hours (Table) 12/06/24 15:30 Fungal Culture - Preliminary Pleural Fluid Assessment and Plan Plan: Assessment: 1. Acute kidney injury secondary to ATN. No hydronephrosis noted on imaging. UA fairly benign. Started on hemodialysis December 19, 2024. Urine output 20 to 30 cc an hour. Creatinine in July 2024 was 0.8. 2. Hypernatremia from lack of oral water intake. Status post D5W. Resolved. 3. Volume overload with pleural effusions. 4. Multiple myeloma. On chemotherapy. 5. Hypercalcemia secondary to volume contraction as well as multiple myeloma. Improved. 6. Pneumonia s/p antibiotics. 7. Anemia. Due to underlying multiple myeloma. Status post IV iron. Has received blood transfusions this admission. 8. Metabolic acidosis secondary to acute kidney injury. Plan: Hemodialysis today. Current dialysis catheter with poor blood flows. Being exchanged today. Continue to monitor renal function and urine output. Wean FiO2. Possible extubation today. Prognosis guarded.
--- NOTE | 2024-12-23 10:40 | OP ---
OPERATIVE REPORT DATE OF SERVICE : PREOPERATIVE DIAGNOSIS: Acute chronic renal failure, malfunction of dialysis catheter and right femoral vein catheter. PROCEDURE: Exchange of dialysis catheter, right femoral approach. PROCEDURE IN DETAIL: This patient was seen in the room. Right groin was prepped and draped in usual sterile manner. 1% lidocaine was infiltrated at the exit site of the catheter. Guidewire was passed through the catheter. Old catheter was removed. After that, we placed 20 cm dialysis catheter on the top of the guidewire, flushed with heparin saline and hep- locked, secured with 3-0 nylon. The patient tolerated the procedure well. MMODL / IJN: [id number] /
[2024-12-23 11:39] LABS: Glucose,Whole Blood 126 mg/dL (70-110)
[2024-12-23 12:24] LABS: ABG Base Excess -4.6 mmol/L; ABG HCO3 20 mmol/L (21-25); ABG Oxygen Saturation 98.5 % (94-97); ABG PCO2 33 mmHg (35-45); ABG PH 7.39 (7.35-7.45); ABG PO2 108 mmHg (83-108); ABG TCO2 21 mmol/L (19-24); Allen Test Performed? Yes
--- NOTE | 2024-12-23 12:35 | P.PN ---
Subjective Progress Note Date: 12/23/24 Will continue to follow 12/18/2024 the patient is being seen for a follow-up. The patient remains intubated on mechanical ventilator. This morning, the patient on propofol running at 20 mcg/kg/min. The patient remains on assist- control mode mechanical ventilation and the patient is on a rate of 20, tidal volume of 450, FiO2 of 35% with a PEEP of 5. Blood gas showed a pH of 7.19 with a pCO2 of 43 and pO2 of 95. Chest x-ray is essentially unchanged. There is no evidence of any pneumothorax. There is a large right-sided pleural effusion and no evidence of any left-sided pleural effusion. ET tube is in a good location. The patient is producing urine output in the order of 30 to 40 cc an hour. The cardiac rhythm In the sinus. The patient did has a fecal management system in place and the patient has produced a total of 100 cc of stool every 2 hours, a total of 1 L over the past 24 hours. Stool for C. difficile has been negative. He continues to receive enteral feeding for nutritional support and the patient is on a vital high-protein at 20 to 35 cc an hour. The white cell count is at 1.3 with a hemoglobin of 7 and a platelet count of 164. Potassium level is at 5.7. BUN is 191 and the creatinine is at 5.6 and a sodium levels of 139 and potassium level is at 5.7. Nephrology on the case. Renal replacement therapy was discussed with the family and at this point they have not made the decision. The patient was started on a bicarb infusion. Afebrile. Hemodynamically stabl e. Remains on Velcade. Remains on cyclophosphamide. Remains on Decadron regarding multiple myeloma. 12/19/2024, patient is being seen in follow-up. Remains intubated on mechanical ventilator. On today's evaluation, the patient is on propofol running at 50 mcg/kg/min. Remains on control mode of mechanical ventilation at rate of 26, tidal volume of 550, FiO2 35% with a PEEP of 5. Blood gas showed a pH of 7.4 with a pCO2 33 and pO2 of 95. The patient had a follow-up chest x-ray shows a moderate to large right-sided pleural effusion, essentially stable in the ED to be seen in the location. The patient remains on a bicarb infusion at rate of 35 cc an hour. He did have some borderline hypotension yesterday and the patient is currently on norepinephrine at 0.02 mcg/kg/min. Urine output is in order of 50 cc an hour. He has fecal management system in place and the patient continues to have diarrhea with a total of 1 L of stool over the past 24 hours. At the same time, he has coffee-ground residual in the stomach. He received enteral feeding with vital HP at rate of 45 cc an hour. His cardiac rhythm is sinus and the patient has some sinus tachycardia. There is also a drop in hemoglobin down to 5.5. The white cell count is 6.8. Platelet count is at 135. BUN is 203, creatinine is 4.5, sodium is at 143 with a potassium level of 4.9. Procalcitonin level is at 0.67. The patient was given a hemodialysis catheter yesterday. 12/20/2024, the patient is being seen for a follow-up. This morning, the patient remains sedated on propofol at 10 mcg/kg/min. Noted the patient was given a sedation holiday yesterday. He was able to follow simple commands. He remains profoundly weak and lethargic. This morning, he is on assist-control mode of mechanical ventilation at rate of 26, percent blood gas with a pH of 7 point large right-sided pleural effusion. No evidence of any pneumothorax. The patient underwent hemodialysis yesterday and another session of hemodialysis to be done today. He remains in normal sinus rate of 70 cc an hour. He received a total of 2 nights of packed RBC and since then the patient is spiking a low- grade temperature. Urine output is the order of 30 to 40 cc an hour. He is currently n.p.o. suspecting a GI bleed. FMS is still in place and the stool output is dropped down to 75 cc over the past 8 hours. Remains on IV Zosyn as a broad-spectrum antibiotic coverage. Hemoglobin today is at 7.8. The white cell count 11.6 with a platelet count of 107. Sodium is at 140, potassium is at 4.4, BUN is 144 with a creatinine of 2.8 and a serum bicarb is at 23. 12/21/2024, patient is being seen for a follow-up. The patient was taken off the sedation this morning. The patient was able to follow simple commands. He remains profoundly weak. He wiggles his toes and moves his fingers. Unable to raise his head up to bed and not able to raise his arms against gravity. His cough remains weak. He is on assist-control mode of mechanical ventilation at rate of 20, tidal volume of 550, FiO2 of 35% with a PEEP of 5. Blood gas showed pH of 7.45 with a pCO2 of 33 and pO2 of 102. Weaning parameters were done and they are essentially poor. The patient was unable to generate adequate tidal volumes and the patient's respiratory rate was quite elevated. Based on that, no CPAP trial was given. Urine output in the order of 30 cc an hour. The patient remains on low-dose norepinephrine running at 0.04 mcg/kg/min he is undergoing daily hemodialysis. Hemodialysis was done yesterday and another session is to be done today. Fluid balance -3 L over the past 24 hours. Cardiac rhythm is sinus. He was given a dose of Lasix yesterday without any significant improvement in his urine output. He has a fecal management system in place. Diarrhea has subsided as the patient is currently NPO. The white cell count is at 10.6 with a hemoglobin of 7 and a platelet count of 85. BUN is 103 with a creatinine of 2.7. Sodium levels at 137, potassium level is at 4.4. The patient is continuing his treatment. Receiving cyclophosphamide on a weekly basis. He is also on high-dose Decadron. He is also on empiric antibiotic coverage with IV Zosyn. He is still being seen by oncology. The patient will be given Velcade and Cytoxan as scheduled for today. Will decrease his Cytoxan dose by 50% and the chemotherapy will be given following his hemodialysis. 12/22/2024, remains intubated on the mechanical ventilator. This morning, the patient is on a low-dose propofol running at 10 mcg/kg/min. Arousable. Awake. Following simple commands. Underwent hemodialysis yesterday with a total of 2 L of fluid removal. Overnight, the patient went into atrial fibrillation with rapid ventricular response. Remains in A-fib. The patient was given amiodarone bolus and the patient is currently on a drip of 1 mg/min. Still in atrial fibrillation. Rate is under better control. Remains on norepinephrine at 0.12 mcg/kg/min. Received Velcade and cyclophosphamide yesterday. Hemoglobin dropped down to 6.8 and the patient will be receiving a unit of packed RBC. On today's evaluation, he is on assist-control mode at rate of 20, tidal volume of 550, FiO2 of 35% with a PEEP of 5. Blood gas showed a pH of 7.43 with a pCO2 of 34 and pO2 of 92. Chest x-ray is essentially unchanged. There is a right-sided pleural effusion. Left lung is unchanged. Ultrasound of the chest was done and the patient was found to have a 7.6 cm pocket of pleural fluid in the posterior right hemithorax. The hemoglobin is at 6.8 with a white cell count of 8.7 and a platelet count of 79. BUN 68 with a creatinine of 2.7. Sodium levels at 135. 12/23/2024, the patient is still intubated on the mechanical ventilator. Awake and communicating. Slightly better and improvement in motor functions compared to yesterday. He remains on propofol running at 50 mcg/kg/min. He is off norepinephrine. Cardiac rhythm is back into sinus rhythm and the patient rem ains on amiodarone 0.5 mg/min. He is on assist-control mode at rate of 20, tidal volume of 550, FiO2 of 35% with a PEEP of 5. Blood gas showed a pH of 7.4 with a pCO2 of 32 and pO2 of 90. Started on vital HP at rate of 20 cc an hour. Urine output remains low. Undergoing hemodialysis and last session was yesterday. Dialysis catheter needs to be replaced as the catheter itself is functioning. Chest x-ray shows a right-sided pleural effusion and ongoing right lung consolidation. Ultrasound also showed the presence of a right-sided pleural effusion. Left lung remains essentially clear. The white cell count of 8.7, hemoglobin 7.9 and a platelet count of 64. Sodium is at 136, potassium is at 4.1, bicarb is at 18, BUN is 89 with a creatinine of 3.03. Glucose at 126. Patient was taken off sedation. Weaning parameters were done and the patient showed a rapid shallow breathing index of 77. The NIF was 18, FVC was 1.2 L, tidal volume was 413. Following that, the patient was given a pressure support of 5 and a PEEP of 5 and a subsequent blood gas showed a pH of 7.39 with a pCO2 of 33 and pO2 of 108. Objective - Vital Signs Vital signs: Vital Signs Temp 97.8 F 12/23/24 12:00 Pulse 71 12/23/24 12:00 Resp 32 H 12/23/24 12:00 BP 123/63 12/23/24 12:00 Pulse Ox 99 12/23/24 12:00 FiO2 35 12/23/24 12:00 Intake & Output 12/22/24 12/23/24 12/23/24 18:59 06:59 18:59 Intake Total 1481.573 706.600 198 Output Total 340 360 240 Balance 1141.573 346.600 -42 Weight 78.1 kg 79.9 kg Intake: IV 396 276 138 .9 KVO 260 240 120 0.9 pressure bag 36 36 18 Piperacillin-Tazobactam 3 100 .375 gm In Sodium Chloride 0.9% 100 ml @ 25 mls/hr IVPB Q8H [facility] Rx#: [id number] Intake, IV Titration 425.573 280.600 Amount Amiodarone 450 mg In 250 Dextrose 5% in Water 250 ml @ 0.5 MG/MIN 16.667 mls/hr IV .Q15H [facility] Rx#: [id number] Norepinephrine 4 mg In 369.991 30.600 Sodium Chloride 0.9% 250 ml @ 0.03 MCG/KG/MIN 9. 464 mls/hr IV .Q24H [facility] Rx#:[id number] propofoL 1,000 mg In 55.582 Empty Bag 1 bag @ 15 MCG/ KG/MIN 7.614 mls/hr IV . Q13H9M [facility] Rx#:[id number] Tube Feeding 40 150 60 Blood Product 620 Rc As-1 Unit 310 [id number] Output: Gastric Drainage 100 Urine 240 360 240 Other: Voiding Method Indwelling Catheter Indwelling Catheter Indwelling Catheter # Bowel Movements 1 1 ABP, PAP, CO, CI - Last Documented Arterial Blood Pressure 138/56 - Exam The patient appeared well nourished and normally developed. Vital signs as documented. The patient remains intubated on mechanical ventilator. The patient is low-dose propofol, following simple commands. Continues to have profound weakness in all 4 extremities. Head exam is unremarkable. No scleral icterus or corneal arcus noted. Neck is without jugular venous distension, thyromegaly, or carotid bruits. Carotid upstrokes are brisk bilaterally. Orogastric and orotracheal tube are both in place. Lungs irregular breathing and diminished breath sound right compared to the left related to pleural effusion. Cardiac exam reveals the PMI to be normally sized and situated. Rhythm is regular. First and second heart sounds normal. No murmurs, rubs or gallops. Abdominal exam reveals normal bowel sounds, no masses, no organomegaly and no aortic enlargement. Extremities are edematous and both femoral and pedal pulses are normal. The pulses in general are diminished and the extremities are edematous. Examination of the skin revealed no evidence of significant rashes, suspicious appearing nevi or other concerning lesions. Neurologically, the patient is low-dose propofol, able to communicate, no focal neurological deficit as the patient has global generalized weakness in all 4 extremities. - Labs CBC & Chem 7: 12/23/24 04:45 12/23/24 04:45 Labs: Abnormal Lab Results - Last 24 Hours (Table) 12/22/24 12/22/24 12/22/24 Range/Units 17:17 17:20 17:20 RBC 2.33 L (4.30-5.90) m/uL Hgb 7.6 L (13.0-17.5) gm/dL Hct 23.0 L (39.0-53.0) % RDW 17.1 H (11.5-15.5) % Plt Count 68 L (150-450) k/uL Neutrophils # 8.2 H (1.3-7.7) k/uL Lymphocytes # 0.2 L (1.0-4.8) k/uL APTT 21.0 L (22.0-30.0) sec ABG pCO2 (35-45) mmHg ABG HCO3 (21-25) mmol/L ABG O2 Saturation (94-97) % Hemoglobin (13.0-17.5) gm/dL Sodium (137-145) mmol/L Carbon Dioxide (22-30) mmol/L BUN (9-20) mg/dL Creatinine (0.66-1.25) mg/dL Glucose (74-99) mg/dL POC Glucose (mg/dL) 128 H (70-110) mg/dL Calcium (8.4-10.2) mg/dL AST (17-59) U/L Total Protein (6.3-8.2) g/dL Albumin (3.5-5.0) g/dL 12/22/24 12/23/24 12/23/24 Range/Units 23:26 04:45 04:45 RBC 2.41 L (4.30-5.90) m/uL Hgb 7.9 L (13.0-17.5) gm/dL Hct 24.0 L (39.0-53.0) % RDW 17.4 H (11.5-15.5) % Plt Count 64 L (150-450) k/uL Neutrophils # 7.9 H (1.3-7.7) k/uL Lymphocytes # 0.2 L (1.0-4.8) k/uL APTT (22.0-30.0) sec ABG pCO2 (35-45) mmHg ABG HCO3 (21-25) mmol/L ABG O2 Saturation (94-97) % Hemoglobin (13.0-17.5) gm/dL Sodium 136 L (137-145) mmol/L Carbon Dioxide 18 L (22-30) mmol/L BUN 89 H (9-20) mg/dL Creatinine 3.03 H (0.66-1.25) mg/dL Glucose 122 H (74-99) mg/dL POC Glucose (mg/dL) 142 H (70-110) mg/dL Calcium 7.7 L (8.4-10.2) mg/dL AST 60 H (17-59) U/L Total Protein 5.3 L (6.3-8.2) g/dL Albumin 2.8 L (3.5-5.0) g/dL 12/23/24 12/23/24 12/23/24 Range/Units 05:07 06:27 11:38 RBC (4.30-5.90) m/uL Hgb (13.0-17.5) gm/dL Hct (39.0-53.0) % RDW (11.5-15.5) % Plt Count (150-450) k/uL Neutrophils # (1.3-7.7) k/uL Lymphocytes # (1.0-4.8) k/uL APTT (22.0-30.0) sec ABG pCO2 32 L (35-45) mmHg ABG HCO3 20 L (21-25) mmol/L ABG O2 Saturation 97.2 H (94-97) % Hemoglobin 7.1 L (13.0-17.5) gm/dL Sodium (137-145) mmol/L Carbon Dioxide (22-30) mmol/L BUN (9-20) mg/dL Creatinine (0.66-1.25) mg/dL Glucose (74-99) mg/dL POC Glucose (mg/dL) 132 H 126 H (70-110) mg/dL Calcium (8.4-10.2) mg/dL AST (17-59) U/L Total Protein (6.3-8.2) g/dL Albumin (3.5-5.0) g/dL 12/23/24 Range/Units 12:20 RBC (4.30-5.90) m/uL Hgb (13.0-17.5) gm/dL Hct (39.0-53.0) % RDW (11.5-15.5) % Plt Count (150-450) k/uL Neutrophils # (1.3-7.7) k/uL Lymphocytes # (1.0-4.8) k/uL APTT (22.0-30.0) sec ABG pCO2 33 L (35-45) mmHg ABG HCO3 20 L (21-25) mmol/L ABG O2 Saturation 98.5 H (94-97) % Hemoglobin 7.1 L (13.0-17.5) gm/dL Sodium (137-145) mmol/L Carbon Dioxide (22-30) mmol/L BUN (9-20) mg/dL Creatinine (0.66-1.25) mg/dL Glucose (74-99) mg/dL POC Glucose (mg/dL) (70-110) mg/dL Calcium (8.4-10.2) mg/dL AST (17-59) U/L Total Protein (6.3-8.2) g/dL Albumin (3.5-5.0) g/dL Microbiology - Last 24 Hours (Table) 12/06/24 15:30 Fungal Culture - Preliminary Pleural Fluid Assessment and Plan Plan: Acute hypoxemic and hypercapnic respiratory failure, multifactorial, requiring intubation, and mechanical ventilation, on December 12, 2024. The patient has a large right-sided pleural effusion. Oxygenation is stable while being on mechanical ventilator. Chest x-ray remains unchanged on today's evaluation. No evidence of any pneumothorax. Chest x-ray remains unchanged and the patient continues to have a right-sided pleural effusion. This has not affected his oxygenation. Weaning parameters have improved. Spontaneous breathing trial was done with adequate blood gases after 30 minutes. The patient is being considered for extubation. Chest x-ray shows a persistent right-sided pleural effusion. S/P right sided thoracentesis, with a right-sided iatrogenic pneumothorax, recovered. Pleural fluid was exudative and there is reaccumulation of the right-sided pleural effusion, has a recurrent right-sided pleural effusion, confirmed by an ultrasound of the chest S/P right Thora vent placement, with removal on December 12, 2024. No residual pneumothorax. Multiple myeloma, relapsed high 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, the patient completed 7 cycles of RVD in May 2024 achieving very good partial response with 99% reduction in kappa light chain. The patient has been on maintenance Revlimid 10 mg daily, which he stopped taking September 2024 for unclear reasons, and the patient is currently on Revlimid, Cytoxan and Decadron. The patient is scheduled to undergo treatment with Revlimid and Cytoxan today and the treatment will be given with a 50% reduction in the dose post hemo dialysis. Atrial fibrillation with rapid ventricular response. Currently on amiodarone drip. Rate is under better control. No anticoagulants. Anion gap metabolic acidosis, recovered Hyperkalemia, improved Acute on chronic anemia with questionable upper GI source of bleeding as the patient has some coffee-ground gastric material.. FMS has been discontinued and the patient was restarted on enteral feeding for nutritional support and vital HP Tumor lysis syndrome, improved Acute kidney injury with bilateral hydronephrosis, and significantly worsening renal function. The patient is currently undergoing daily hemodialysis, last hemodialysis session was yesterday Hypercalcemia, resolved. Chronic anemia. Hypertension. History of hyperlipidemia. History of obstructive sleep apnea syndrome, maintained on home CPAP. Diarrhea, and the patient has a fecal management system in place Plan: Discontinue propofol Weaning parameters were checked. Spontaneous breathing trial was done. Blood gas was done. Will extubate the patient. Will reintubate if the patient fails extubation. Change IV fluids to KVO Continue hemodialysis and another session will be done today at around 2 PM. We will consider drainage of the right-sided pleural effusion Patient is currently off pressors Discontinue the amiodarone drip and the patient is currently on oral amiodarone Cardiac rhythm is sinus No anticoagulants May need to keep an NG tube in place post extubation No diarrhea for now Continue empiric antibiotic coverage with IV Zosyn Received chemotherapy with a combination of Velcade and Cytoxan with a 50% dose reduction post hemodialysis, given to him on 12/21/2024 Continue IV Protonix 40 mg every 24 hours Nephrology on the case Hematology oncology is on the case Prognosis remains poor based on above-mentioned comorbidities. Will continue to follow make further recommendations based on his progress. Critical care evaluation 31 minutes. Time with Patient: Greater than 30
--- NOTE | 2024-12-23 13:00 | P.PN ---
Subjective Progress Note Date: 12/23/24 The patient was awake on the vent. He was able to respond with head and hand gestures. Small amount of melena noted in the bed Objective - Vital Signs Vital signs: Vital Signs Temp 97.8 F 12/23/24 12:00 Pulse 71 12/23/24 12:00 Resp 32 H 12/23/24 12:00 BP 123/63 12/23/24 12:00 Pulse Ox 96 12/23/24 12:39 FiO2 35 12/23/24 12:00 Intake & Output 12/22/24 12/23/24 12/23/24 18:59 06:59 18:59 Intake Total 1481.573 706.600 198 Output Total 340 360 240 Balance 1141.573 346.600 -42 Weight 78.1 kg 79.9 kg Intake: IV 396 276 138 .9 KVO 260 240 120 0.9 pressure bag 36 36 18 Piperacillin-Tazobactam 3 100 .375 gm In Sodium Chloride 0.9% 100 ml @ 25 mls/hr IVPB Q8H [facility] Rx#: [id number] Intake, IV Titration 425.573 280.600 Amount Amiodarone 450 mg In 250 Dextrose 5% in Water 250 ml @ 0.5 MG/MIN 16.667 mls/hr IV .Q15H [facility] Rx#: [id number] Norepinephrine 4 mg In 369.991 30.600 Sodium Chloride 0.9% 250 ml @ 0.03 MCG/KG/MIN 9. 464 mls/hr IV .Q24H [facility] Rx#:[id number] propofoL 1,000 mg In 55.582 Empty Bag 1 bag @ 15 MCG/ KG/MIN 7.614 mls/hr IV . Q13H9M [facility] Rx#:[id number] Tube Feeding 40 150 60 Blood Product 620 Rc As-1 Unit 310 [id number] Output: Gastric Drainage 100 Urine 240 360 240 Other: Voiding Method Indwelling Catheter Indwelling Catheter Indwelling Catheter # Bowel Movements 1 1 ABP, PAP, CO, CI - Last Documented Arterial Blood Pressure 138/56 - Constitutional General appearance: Present: no acute distress - EENT Eyes: Present: EOMI ENT: Present: hearing grossly normal - Respiratory Respiratory: right: diminished - Cardiovascular Rhythm: regular Heart sounds: normal: S1, S2 - Gastrointestinal General gastrointestinal: Present: normal bowel sounds, soft - Integumentary Integumentary: Present: normal - Musculoskeletal Musculoskeletal: Present: generalized weakness, strength equal bilaterally - Labs CBC & Chem 7: 12/23/24 04:45 12/23/24 04:45 Labs: Abnormal Lab Results - Last 24 Hours (Table) 12/22/24 12/22/24 12/22/24 Range/Units 17:17 17:20 17:20 RBC 2.33 L (4.30-5.90) m/uL Hgb 7.6 L (13.0-17.5) gm/dL Hct 23.0 L (39.0-53.0) % RDW 17.1 H (11.5-15.5) % Plt Count 68 L (150-450) k/uL Neutrophils # 8.2 H (1.3-7.7) k/uL Lymphocytes # 0.2 L (1.0-4.8) k/uL APTT 21.0 L (22.0-30.0) sec ABG pCO2 (35-45) mmHg ABG HCO3 (21-25) mmol/L ABG O2 Saturation (94-97) % Hemoglobin (13.0-17.5) gm/dL Sodium (137-145) mmol/L Carbon Dioxide (22-30) mmol/L BUN (9-20) mg/dL Creatinine (0.66-1.25) mg/dL Glucose (74-99) mg/dL POC Glucose (mg/dL) 128 H (70-110) mg/dL Calcium (8.4-10.2) mg/dL AST (17-59) U/L Total Protein (6.3-8.2) g/dL Albumin (3.5-5.0) g/dL 12/22/24 12/23/24 12/23/24 Range/Units 23:26 04:45 04:45 RBC 2.41 L (4.30-5.90) m/uL Hgb 7.9 L (13.0-17.5) gm/dL Hct 24.0 L (39.0-53.0) % RDW 17.4 H (11.5-15.5) % Plt Count 64 L (150-450) k/uL Neutrophils # 7.9 H (1.3-7.7) k/uL Lymphocytes # 0.2 L (1.0-4.8) k/uL APTT (22.0-30.0) sec ABG pCO2 (35-45) mmHg ABG HCO3 (21-25) mmol/L ABG O2 Saturation (94-97) % Hemoglobin (13.0-17.5) gm/dL Sodium 136 L (137-145) mmol/L Carbon Dioxide 18 L (22-30) mmol/L BUN 89 H (9-20) mg/dL Creatinine 3.03 H (0.66-1.25) mg/dL Glucose 122 H (74-99) mg/dL POC Glucose (mg/dL) 142 H (70-110) mg/dL Calcium 7.7 L (8.4-10.2) mg/dL AST 60 H (17-59) U/L Total Protein 5.3 L (6.3-8.2) g/dL Albumin 2.8 L (3.5-5.0) g/dL 12/23/24 12/23/24 12/23/24 Range/Units 05:07 06:27 11:38 RBC (4.30-5.90) m/uL Hgb (13.0-17.5) gm/dL Hct (39.0-53.0) % RDW (11.5-15.5) % Plt Count (150-450) k/uL Neutrophils # (1.3-7.7) k/uL Lymphocytes # (1.0-4.8) k/uL APTT (22.0-30.0) sec ABG pCO2 32 L (35-45) mmHg ABG HCO3 20 L (21-25) mmol/L ABG O2 Saturation 97.2 H (94-97) % Hemoglobin 7.1 L (13.0-17.5) gm/dL Sodium (137-145) mmol/L Carbon Dioxide (22-30) mmol/L BUN (9-20) mg/dL Creatinine (0.66-1.25) mg/dL Glucose (74-99) mg/dL POC Glucose (mg/dL) 132 H 126 H (70-110) mg/dL Calcium (8.4-10.2) mg/dL AST (17-59) U/L Total Protein (6.3-8.2) g/dL Albumin (3.5-5.0) g/dL 12/23/24 Range/Units 12:20 RBC (4.30-5.90) m/uL Hgb (13.0-17.5) gm/dL Hct (39.0-53.0) % RDW (11.5-15.5) % Plt Count (150-450) k/uL Neutrophils # (1.3-7.7) k/uL Lymphocytes # (1.0-4.8) k/uL APTT (22.0-30.0) sec ABG pCO2 33 L (35-45) mmHg ABG HCO3 20 L (21-25) mmol/L ABG O2 Saturation 98.5 H (94-97) % Hemoglobin 7.1 L (13.0-17.5) gm/dL Sodium (137-145) mmol/L Carbon Dioxide (22-30) mmol/L BUN (9-20) mg/dL Creatinine (0.66-1.25) mg/dL Glucose (74-99) mg/dL POC Glucose (mg/dL) (70-110) mg/dL Calcium (8.4-10.2) mg/dL AST (17-59) U/L Total Protein (6.3-8.2) g/dL Albumin (3.5-5.0) g/dL Microbiology - Last 24 Hours (Table) 12/06/24 15:30 Fungal Culture - Preliminary Pleural Fluid Assessment and Plan (1) Multiple myeloma in relapse Narrative/Plan: The patient has received salvage treatment with 1 cycle of CyBOR- D. Second phase of treatment was administered yesterday, for cycle 1. This was timed appropriately with dialysis, after discussion with pharmacy. Subjective tolerance appears to be reasonable so far. Continue to monitor counts with supportive transfusions as needed. It has been discussed with the patient and his family, that we do not typically see an immediate response. Current Visit: Yes Status: Acute Code(s): C90.02 - MULTIPLE MYELOMA IN RELAPSE SNOMED Code(s): 901930961 (2) GI bleed Narrative/Plan: The patient had dropped his hemoglobin yesterday, and subsequently in the afternoon significant amount of melena was noted in the bed. This is felt to be likely due to upper GI blood loss with a primary differential being stress gastritis, as well as platelet dysfunction from his renal insufficiency. The patient is on Pepcid. He was given a transfusion yesterday. He also received DDAVP. Small amount of melena was noted today, but hemoglobin is stable at 7.8. Assuming that the hemoglobin remained stable, this most likely would represent residual old blood. It was discussed with nursing to inform me if the patient has persistent episodes. In that case he will need repeat hemoglobin later in the day, with supportive transfusions if needed. I would also consider Sandostatin in that situation Current Visit: Yes Status: Acute Code(s): K92.2 - GASTROINTESTINAL HEMORRHAGE, UNSPECIFIED SNOMED Code(s): 84515667 Plan: The patient is currently undergoing weaning trials
[2024-12-23 18:02] LABS: Glucose,Whole Blood 118 mg/dL (70-110)
[2024-12-23 23:30] LABS: Glucose,Whole Blood 114 mg/dL (70-110)
--- NOTE | 2024-12-24 00:37 | PN ---
PROGRESS NOTE DATE OF SERVICE: 12/23/2024 SUBJECTIVE: This is a 79-year-old gentleman, who was admitted with multiple medical problems including acute hypoxic respiratory failure, who is also on mechanical ventilation. The patient had malignant pleural effusion and thoracocentesis was done. The patient also with underlying multiple myeloma and renal failure also. The patient is conscious, but confused at this time. Chest x-ray reviewed. PAST MEDICAL HISTORY: Reviewed. REVIEW OF SYSTEMS: Could not be taken. CURRENT MEDICATIONS: Reviewed. PHYSICAL EXAMINATION: VITAL SIGNS: Pulse is 71, blood pressure 123/66, respirations 32. CHEST: A few scattered rhonchi. ABDOMEN: Soft. NERVOUS SYSTEM: Nonfocal. LABORATORY DATA: Hemoglobin is 7.9. Other labs are noted. Creatinine of 3.03. ASSESSMENT: 1. Malignant large pleural effusion with acute hypoxic respiratory failure, status post mechanical ventilation. 2. Acute on chronic renal failure, on hemodialysis. 3. Iatrogenic right pneumothorax. 4. Multiple myeloma. 5. Hypercalcemia. 6. Multiple medical issues. 7. Change in mental status, metabolic encephalopathy. RECOMMENDATIONS: Recommended to continue with current management, continue with symptomatic treatment otherwise. At this time, I will recommend to continue with the bronchodilators. Cultures are negative so far. We will continue to monitor. Chest x-ray as mentioned earlier is reviewed. Closely follow up with multiple consultants. Repeat labs are ordered for tomorrow. Further recommendations to follow. Closely follow with Dr. Pérez. TAMMI / VERNON: [id number] /
[2024-12-24 05:56] LABS: Anion Gap 9 mmol/L; Blood Urea Nitrogen 56 mg/dL (9-20); Calcium 7.7 mg/dL (8.4-10.2); Carbon Dioxide 26 mmol/L (22-30); Chloride 98 mmol/L (98-107); Glucose 99 mg/dL (74-99); Potassium 3.5 mmol/L (3.5-5.1); Sodium 133 mmol/L (137-145)
[2024-12-24 06:02] LABS: African American GFR (CKD) 30 (>60 ml/min/1.73 sqM); Non-African American GFR(CKD) 26 (>60 ml/min/1.73 sqM)
[2024-12-24 06:12] LABS: Anisocytosis Slight; Basophils % (A) 0 %; Eosinophils % (A) 0 %; HCT 20.8 % (39.0-53.0); Lymphocytes # (A) 0.3 k/uL (1.0-4.8); Lymphocytes % (A) 3 %; MCH 32.7 pg (25.0-35.0); MCHC 33.6 g/dL (31.0-37.0); MCV 97.3 fL (80.0-100.0); Macrocytosis Slight; Mean Platelet Volume 11.9; Monocytes # (A) 0.5 k/uL (0-1.0); Monocytes % (A) 5 %; Neutrophils % (A) 91 %; RBC 2.14 m/uL (4.30-5.90); RDW 16.6 % (11.5-15.5); WBC 8.8 k/uL (3.8-10.6)
[2024-12-24 06:17] LABS: Platelet Count 50 k/uL (150-450)
[2024-12-24] MEDS ORDERED: Potassium Replacement Protocol 1 EACH MISC MISCELLANE PRN (07:13)
--- NOTE | 2024-12-24 09:53 | XR ---
EXAMINATION TYPE: XR chest 1V portable DATE OF EXAM: 12/24/2024 9:21 AM COMPARISON: 12/23/2024 CLINICAL INDICATION: Male, 79 years old with history of pleural effusion, TECHNIQUE: XR chest 1V portable view(s) obtained. FINDINGS: The heart size is normal. The pulmonary vasculature is normal. Right lower lobe infiltrate or right pleural effusion is present. There is silhouetting of the right diaphragm. Tiny residual pneumothorax not identified on the current exam. Endotracheal tube and nasogastric tube has been removed. IMPRESSION: 1. Right lower lobe infiltrate and/or effusion, stable from comparison. [facility], , 12/24/2024 9:50 AM
[2024-12-24] MEDS: POTASSIUM CHLORIDE 10 MEQ in WATER FOR INJECTION 1 100ML.BAG IVPB SCH (09:54)
--- NOTE | 2024-12-24 10:16 | P.PN ---
Subjective Patient is seen in follow-up for acute kidney injury. Remains off vasopressors. Extubated December 23, 2024. Urine output 25 to 30 cc an hour. Last hemodialysis December 23, 2024. Started on dialysis December 19, 2024. Vital signs are stable. General: No resting in bed. HEENT: On nasal cannula. LUNGS: No audible rhonchi or wheezes. HEART: Rate and Rhythm are regular. ABDOMEN: Nontender. EXTREMITITES: 1+ edema. Objective - Vital Signs Vital signs: Vital Signs Temp 97.9 F 12/24/24 04:00 Pulse 71 12/24/24 09:19 Resp 21 12/24/24 07:00 BP 111/51 12/24/24 07:00 Pulse Ox 98 12/24/24 09:09 FiO2 35 12/23/24 12:00 Intake & Output 12/23/24 12/24/24 12/24/24 18:59 06:59 18:59 Intake Total 836 276 23 Output Total 3970 285 30 Balance -3134 -9 -7 Weight 79.9 kg 77.1 kg Intake: IV 276 276 23 .9 KVO 240 240 20 0.9 pressure bag 36 36 3 Tube Feeding 60 Hemodialysis 500 Output: Urine 470 285 30 Hemodialysis 2000 Hemodialysis Net Amount 1500 Other: Voiding Method Indwelling Catheter Indwelling Catheter ABP, PAP, CO, CI - Last Documented Arterial Blood Pressure 123/47 - Labs CBC & Chem 7: 12/24/24 05:30 12/24/24 05:30 Labs: Abnormal Lab Results - Last 24 Hours (Table) 12/23/24 12/23/24 12/23/24 Range/Units 11:38 12:20 18:00 RBC (4.30-5.90) m/uL Hgb (13.0-17.5) gm/dL Hct (39.0-53.0) % RDW (11.5-15.5) % Plt Count (150-450) k/uL Neutrophils # (1.3-7.7) k/uL Lymphocytes # (1.0-4.8) k/uL ABG pCO2 33 L (35-45) mmHg ABG HCO3 20 L (21-25) mmol/L ABG O2 Saturation 98.5 H (94-97) % Hemoglobin 7.1 L (13.0-17.5) gm/dL Sodium (137-145) mmol/L BUN (9-20) mg/dL Creatinine (0.66-1.25) mg/dL POC Glucose (mg/dL) 126 H 118 H (70-110) mg/dL Calcium (8.4-10.2) mg/dL 12/23/24 12/24/24 12/24/24 Range/Units 23:28 05:30 05:30 RBC 2.14 L (4.30-5.90) m/uL Hgb 7.0 L (13.0-17.5) gm/dL Hct 20.8 L (39.0-53.0) % RDW 16.6 H (11.5-15.5) % Plt Count 50 L (150-450) k/uL Neutrophils # 8.0 H (1.3-7.7) k/uL Lymphocytes # 0.3 L (1.0-4.8) k/uL ABG pCO2 (35-45) mmHg ABG HCO3 (21-25) mmol/L ABG O2 Saturation (94-97) % Hemoglobin (13.0-17.5) gm/dL Sodium 133 L (137-145) mmol/L BUN 56 H (9-20) mg/dL Creatinine 2.32 H (0.66-1.25) mg/dL POC Glucose (mg/dL) 114 H (70-110) mg/dL Calcium 7.7 L (8.4-10.2) mg/dL Microbiology - Last 24 Hours (Table) 12/18/24 12:40 Blood Culture - Final Blood Assessment and Plan Plan: Assessment: 1. Acute kidney injury secondary to ATN. No hydronephrosis noted on imaging. UA fairly benign. Started on hemodialysis December 19, 2024. Femoral catheter was exchanged December 23, 2024. Urine output 20 to 30 cc an hour. Creatinine in July 2024 was 0.8. 2. Hypernatremia from lack of oral water intake. Status post D5W. Resolved. 3. Volume overload with pleural effusions. Improved with ultrafiltration and diuresis. 4. Multiple myeloma. On chemotherapy. 5. Hypercalcemia secondary to volume contraction as well as multiple myeloma. Improved. 6. Pneumonia s/p antibiotics. 7. Anemia. Due to underlying multiple myeloma. Status post IV iron. Has received blood transfusions this admission. 8. Metabolic acidosis secondary to acute kidney injury. Improved. Plan: Hemodialysis tomorrow. Lasix 80 mg IV once today. Potassium replaced. Continue to monitor renal function and urine output. Prognosis guarded.
--- NOTE | 2024-12-24 10:26 | P.PN ---
Subjective Progress Note Date: 12/24/24 Will continue to follow 12/18/2024 the patient is being seen for a follow-up. The patient remains intubated on mechanical ventilator. This morning, the patient on propofol running at 20 mcg/kg/min. The patient remains on assist- control mode mechanical ventilation and the patient is on a rate of 20, tidal volume of 450, FiO2 of 35% with a PEEP of 5. Blood gas showed a pH of 7.19 with a pCO2 of 43 and pO2 of 95. Chest x-ray is essentially unchanged. There is no evidence of any pneumothorax. There is a large right-sided pleural effusion and no evidence of any left-sided pleural effusion. ET tube is in a good location. The patient is producing urine output in the order of 30 to 40 cc an hour. The cardiac rhythm In the sinus. The patient did has a fecal management system in place and the patient has produced a total of 100 cc of stool every 2 hours, a total of 1 L over the past 24 hours. Stool for C. difficile has been negative. He continues to receive enteral feeding for nutritional support and the patient is on a vital high-protein at 20 to 35 cc an hour. The white cell count is at 1.3 with a hemoglobin of 7 and a platelet count of 164. Potassium level is at 5.7. BUN is 191 and the creatinine is at 5.6 and a sodium levels of 139 and potassium level is at 5.7. Nephrology on the case. Renal replacement therapy was discussed with the family and at this point they have not made the decision. The patient was started on a bicarb infusion. Afebrile. Hemodynamically stabl e. Remains on Velcade. Remains on cyclophosphamide. Remains on Decadron regarding multiple myeloma. 12/19/2024, patient is being seen in follow-up. Remains intubated on mechanical ventilator. On today's evaluation, the patient is on propofol running at 50 mcg/kg/min. Remains on control mode of mechanical ventilation at rate of 26, tidal volume of 550, FiO2 35% with a PEEP of 5. Blood gas showed a pH of 7.4 with a pCO2 33 and pO2 of 95. The patient had a follow-up chest x-ray shows a moderate to large right-sided pleural effusion, essentially stable in the ED to be seen in the location. The patient remains on a bicarb infusion at rate of 35 cc an hour. He did have some borderline hypotension yesterday and the patient is currently on norepinephrine at 0.02 mcg/kg/min. Urine output is in order of 50 cc an hour. He has fecal management system in place and the patient continues to have diarrhea with a total of 1 L of stool over the past 24 hours. At the same time, he has coffee-ground residual in the stomach. He received enteral feeding with vital HP at rate of 45 cc an hour. His cardiac rhythm is sinus and the patient has some sinus tachycardia. There is also a drop in hemoglobin down to 5.5. The white cell count is 6.8. Platelet count is at 135. BUN is 203, creatinine is 4.5, sodium is at 143 with a potassium level of 4.9. Procalcitonin level is at 0.67. The patient was given a hemodialysis catheter yesterday. 12/20/2024, the patient is being seen for a follow-up. This morning, the patient remains sedated on propofol at 10 mcg/kg/min. Noted the patient was given a sedation holiday yesterday. He was able to follow simple commands. He remains profoundly weak and lethargic. This morning, he is on assist-control mode of mechanical ventilation at rate of 26, percent blood gas with a pH of 7 point large right-sided pleural effusion. No evidence of any pneumothorax. The patient underwent hemodialysis yesterday and another session of hemodialysis to be done today. He remains in normal sinus rate of 70 cc an hour. He received a total of 2 nights of packed RBC and since then the patient is spiking a low- grade temperature. Urine output is the order of 30 to 40 cc an hour. He is currently n.p.o. suspecting a GI bleed. FMS is still in place and the stool output is dropped down to 75 cc over the past 8 hours. Remains on IV Zosyn as a broad-spectrum antibiotic coverage. Hemoglobin today is at 7.8. The white cell count 11.6 with a platelet count of 107. Sodium is at 140, potassium is at 4.4, BUN is 144 with a creatinine of 2.8 and a serum bicarb is at 23. 12/21/2024, patient is being seen for a follow-up. The patient was taken off the sedation this morning. The patient was able to follow simple commands. He remains profoundly weak. He wiggles his toes and moves his fingers. Unable to raise his head up to bed and not able to raise his arms against gravity. His cough remains weak. He is on assist-control mode of mechanical ventilation at rate of 20, tidal volume of 550, FiO2 of 35% with a PEEP of 5. Blood gas showed pH of 7.45 with a pCO2 of 33 and pO2 of 102. Weaning parameters were done and they are essentially poor. The patient was unable to generate adequate tidal volumes and the patient's respiratory rate was quite elevated. Based on that, no CPAP trial was given. Urine output in the order of 30 cc an hour. The patient remains on low-dose norepinephrine running at 0.04 mcg/kg/min he is undergoing daily hemodialysis. Hemodialysis was done yesterday and another session is to be done today. Fluid balance -3 L over the past 24 hours. Cardiac rhythm is sinus. He was given a dose of Lasix yesterday without any significant improvement in his urine output. He has a fecal management system in place. Diarrhea has subsided as the patient is currently NPO. The white cell count is at 10.6 with a hemoglobin of 7 and a platelet count of 85. BUN is 103 with a creatinine of 2.7. Sodium levels at 137, potassium level is at 4.4. The patient is continuing his treatment. Receiving cyclophosphamide on a weekly basis. He is also on high-dose Decadron. He is also on empiric antibiotic coverage with IV Zosyn. He is still being seen by oncology. The patient will be given Velcade and Cytoxan as scheduled for today. Will decrease his Cytoxan dose by 50% and the chemotherapy will be given following his hemodialysis. 12/22/2024, remains intubated on the mechanical ventilator. This morning, the patient is on a low-dose propofol running at 10 mcg/kg/min. Arousable. Awake. Following simple commands. Underwent hemodialysis yesterday with a total of 2 L of fluid removal. Overnight, the patient went into atrial fibrillation with rapid ventricular response. Remains in A-fib. The patient was given amiodarone bolus and the patient is currently on a drip of 1 mg/min. Still in atrial fibrillation. Rate is under better control. Remains on norepinephrine at 0.12 mcg/kg/min. Received Velcade and cyclophosphamide yesterday. Hemoglobin dropped down to 6.8 and the patient will be receiving a unit of packed RBC. On today's evaluation, he is on assist-control mode at rate of 20, tidal volume of 550, FiO2 of 35% with a PEEP of 5. Blood gas showed a pH of 7.43 with a pCO2 of 34 and pO2 of 92. Chest x-ray is essentially unchanged. There is a right-sided pleural effusion. Left lung is unchanged. Ultrasound of the chest was done and the patient was found to have a 7.6 cm pocket of pleural fluid in the posterior right hemithorax. The hemoglobin is at 6.8 with a white cell count of 8.7 and a platelet count of 79. BUN 68 with a creatinine of 2.7. Sodium levels at 135. 12/23/2024, the patient is still intubated on the mechanical ventilator. Awake and communicating. Slightly better and improvement in motor functions compared to yesterday. He remains on propofol running at 50 mcg/kg/min. He is off norepinephrine. Cardiac rhythm is back into sinus rhythm and the patient rem ains on amiodarone 0.5 mg/min. He is on assist-control mode at rate of 20, tidal volume of 550, FiO2 of 35% with a PEEP of 5. Blood gas showed a pH of 7.4 with a pCO2 of 32 and pO2 of 90. Started on vital HP at rate of 20 cc an hour. Urine output remains low. Undergoing hemodialysis and last session was yesterday. Dialysis catheter needs to be replaced as the catheter itself is functioning. Chest x-ray shows a right-sided pleural effusion and ongoing right lung consolidation. Ultrasound also showed the presence of a right-sided pleural effusion. Left lung remains essentially clear. The white cell count of 8.7, hemoglobin 7.9 and a platelet count of 64. Sodium is at 136, potassium is at 4.1, bicarb is at 18, BUN is 89 with a creatinine of 3.03. Glucose at 126. Patient was taken off sedation. Weaning parameters were done and the patient showed a rapid shallow breathing index of 77. The NIF was 18, FVC was 1.2 L, tidal volume was 413. Following that, the patient was given a pressure support of 5 and a PEEP of 5 and a subsequent blood gas showed a pH of 7.39 with a pCO2 of 33 and pO2 of 108. 12/24/2024, the patient remains extubated on 3 L of oxygen by nasal cannula. Awake and alert and communicating. He is profoundly weak. Adequate cough. Urine output in the order of 20 cc an hour. Underwent hemodialysis yesterday with a total of 1.5 L of ultrafiltration. Cardiac rhythm is sinus. Diarrhea has subsided. Remains on IV Zosyn. No other significant events overnight. Blood work shows white cell count of 8.8, hemoglobin of 7 and a platelet count of 50. Sodium is at 133, K is at 3.5, BUN is 56 with a creatinine of 2.3 Objective - Vital Signs Vital signs: Vital Signs Temp 97.9 F 12/24/24 04:00 Pulse 74 12/24/24 07:00 Resp 21 12/24/24 07:00 BP 111/51 12/24/24 07:00 Pulse Ox 98 12/24/24 07:00 FiO2 35 12/23/24 12:00 Intake & Output 12/23/24 12/24/24 12/24/24 18:59 06:59 18:59 Intake Total 836 276 23 Output Total 3970 285 30 Balance -3134 -9 -7 Weight 79.9 kg 77.1 kg Intake: IV 276 276 23 .9 KVO 240 240 20 0.9 pressure bag 36 36 3 Tube Feeding 60 Hemodialysis 500 Output: Urine 470 285 30 Hemodialysis 2000 Hemodialysis Net Amount 1500 Other: Voiding Method Indwelling Catheter Indwelling Catheter ABP, PAP, CO, CI - Last Documented Arterial Blood Pressure 123/47 - Exam The patient appeared well nourished and normally developed. Vital signs as documented. The patient extubated to 2 liters/min. Awake and alert and communicating. Continues to have profound weakness in all 4 extremities. Head exam is unremarkable. No scleral icterus or corneal arcus noted. Neck is without jugular venous distension, thyromegaly, or carotid bruits. Carotid upstrokes are brisk bilaterally. Lungs irregular breathing and diminished breath sound right compared to the left related to pleural effusion. Cardiac exam reveals the PMI to be normally sized and situated. Rhythm is regular. First and second heart sounds normal. No murmurs, rubs or gallops. Abdominal exam reveals normal bowel sounds, no masses, no organomegaly and no aortic enlargement. Extremities are edematous and both femoral and pedal pulses are normal. The pulses in general are diminished and the extremities are edematous. Examination of the skin revealed no evidence of significant rashes, suspicious appearing nevi or other concerning lesions. Neurologically, able to communicate, no focal neurological deficit as the patient has global generalized weakness in all 4 extremities. - Labs CBC & Chem 7: 12/24/24 05:30 12/24/24 05:30 Labs: Abnormal Lab Results - Last 24 Hours (Table) 12/23/24 12/23/24 12/23/24 Range/Units 11:38 12:20 18:00 RBC (4.30-5.90) m/uL Hgb (13.0-17.5) gm/dL Hct (39.0-53.0) % RDW (11.5-15.5) % Plt Count (150-450) k/uL Neutrophils # (1.3-7.7) k/uL Lymphocytes # (1.0-4.8) k/uL ABG pCO2 33 L (35-45) mmHg ABG HCO3 20 L (21-25) mmol/L ABG O2 Saturation 98.5 H (94-97) % Hemoglobin 7.1 L (13.0-17.5) gm/dL Sodium (137-145) mmol/L BUN (9-20) mg/dL Creatinine (0.66-1.25) mg/dL POC Glucose (mg/dL) 126 H 118 H (70-110) mg/dL Calcium (8.4-10.2) mg/dL 12/23/24 12/24/24 12/24/24 Range/Units 23:28 05:30 05:30 RBC 2.14 L (4.30-5.90) m/uL Hgb 7.0 L (13.0-17.5) gm/dL Hct 20.8 L (39.0-53.0) % RDW 16.6 H (11.5-15.5) % Plt Count 50 L (150-450) k/uL Neutrophils # 8.0 H (1.3-7.7) k/uL Lymphocytes # 0.3 L (1.0-4.8) k/uL ABG pCO2 (35-45) mmHg ABG HCO3 (21-25) mmol/L ABG O2 Saturation (94-97) % Hemoglobin (13.0-17.5) gm/dL Sodium 133 L (137-145) mmol/L BUN 56 H (9-20) mg/dL Creatinine 2.32 H (0.66-1.25) mg/dL POC Glucose (mg/dL) 114 H (70-110) mg/dL Calcium 7.7 L (8.4-10.2) mg/dL Microbiology - Last 24 Hours (Table) 12/18/24 12:40 Blood Culture - Final Blood Assessment and Plan Plan: Acute hypoxemic and hypercapnic respiratory failure, multifactorial, requiring intubation, and mechanical ventilation, on December 12, 2024. The patient has a large right-sided pleural effusion. Oxygenation is stable while being on mechanical ventilator. Chest x-ray remains unchanged on today's evaluation. No evidence of any pneumothorax. Chest x-ray remains unchanged and the patient continues to have a right-sided pleural effusion. Extubated on 12/23/2024 and c urrently on 2 L of O2 nasal cannula. Continues to have right-sided pleural effusion. S/P right sided thoracentesis, with a right-sided iatrogenic pneumothorax, recovered. Pleural fluid was exudative and there is reaccumulation of the right-sided pleural effusion, has a recurrent right-sided pleural effusion, confirmed by an ultrasound of the chest S/P right Thora vent placement, with removal on December 12, 2024. No residual pneumothorax. Multiple myeloma, relapsed high 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, the patient completed 7 cycles of RVD in May 2024 achieving very good partial response with 99% reduction in kappa light chain. The patient has been on maintenance Revlimid 10 mg daily, which he stopped taking September 2024 for unclear reasons, and the patient is currently on Revlimid, Cytoxan and Decadron. The patient is scheduled to undergo treatment with Revlimid and Cytoxan today and the treatment will be given with a 50% reduction in the dose post hemodialysis. Atrial fibrillation with rapid ventricular response. Currently on amiodarone drip. Rate is under better control. No anticoagulants. Anion gap metabolic acidosis, recovered Hyperkalemia, improved Acute on chronic anemia with questionable upper GI source of bleeding as the patient has some coffee-ground gastric material.. FMS has been discontinued and the patient was restarted on enteral feeding for nutritional support and vital HP Tumor lysis syndrome, improved Acute kidney injury with bilateral hydronephrosis, and significantly worsening renal function. The patient is currently undergoing daily hemodialysis, last hemodialysis session was yesterday Hypercalcemia, resolved. Chronic anemia. Hypertension. History of hyperlipidemia. History of obstructive sleep apnea syndrome, maintained on home CPAP. Diarrhea, and the patient has a fecal management system in place Plan: Extubated currently on 2 L of oxygen by nasal cannula Change IV fluids to KVO Continue hemodialysis and last session was on 12/23/2024 with a total of 1.5 L of ultrafiltration We will consider drainage of the right-sided pleural effusion, we will hold off on the thoracentesis for now specially with his underlying thrombocytopenia Patient is currently off pressors Swallow evaluation Diet if he is able to swallow Continue amiodarone Cardiac rhythm is sinus No anticoagulants Discontinue IV Zosyn Received chemotherapy with a combination of Velcade and Cytoxan with a 50% dose reduction post hemodialysis, given to him on 12/21/2024 Continue IV Protonix 40 mg every 24 hours Nephrology on the case Hematology oncology is on the case Prognosis remains poor based on above-mentioned comorbidities. Will continue to follow make further recommendations based on his progress. Critical care evaluation 31 minutes. Time with Patient: Greater than 30
[2024-12-24 11:55] LABS: Glucose,Whole Blood 100 mg/dL (70-110)
[2024-12-24] MEDS: FUROSEMIDE 10 MG/ML 10 ML VIAL IV STA (12:20)
[2024-12-24] MEDS: BORTEZOMIB 3.5 MG VIAL SQ ONE (16:08)
--- NOTE | 2024-12-24 16:52 | CT ---
EXAMINATION TYPE: CT brain wo con DATE OF EXAM: 12/24/2024 4:41 PM COMPARISON: None. CLINICAL INDICATION: Male, 79 years old with history of stroke??, Multiple myeloma, ams, R/O stroke TECHNIQUE: Brain: Axial CT images of the brain were obtained with coronal and sagittal reformats created and rev iewed. Contrast used: None. Oral contrast used: None. CT DLP: 1239.4 mGycm, Automated exposure control for dose reduction was used. FINDINGS: Brain: Extra-axial spaces: No abnormal extra-axial fluid collections. Ventricular system: Dilatation in proportion to cerebral atrophy. Cerebral parenchyma: No acute intraparenchymal hemorrhage or mass effect. The mera-white junction is well differentiated. Scattered hypoattenuating areas are seen within the white matter. Cerebellum: Unremarkable. Mass effect: No evidence of midline shift. Intracranial vasculature: unremarkable Soft tissues: Normal. Calvarium/osseous structures: No depressed skull fracture. Paranasal sinuses and mastoid air cells: Mild scattered paranasal sinus disease. Visualized orbits: Orbital contents are intact. IMPRESSION: 1. No acute intracranial process. Recommend MRI brain for further evaluation if there is continued c linical concern for acute ischemia. 2. Patchy periventricular and subcortical white matter hypoattenuation likely affecting chronic vasc ular ischemia. [facility], , 12/24/2024 4:50 PM
[2024-12-24 17:25] LABS: Glucose,Whole Blood 136 mg/dL (70-110)
[2024-12-24 20:03] LABS: Glucose,Whole Blood 122 mg/dL (70-110)
[2024-12-25 00:43] LABS: Glucose,Whole Blood 112 mg/dL (70-110)
[2024-12-25 04:56] LABS: Anisocytosis Slight; Basophils % (A) 0 %; Eosinophils % (A) 0 %; HCT 22.7 % (39.0-53.0); HGB 7.4 gm/dL (13.0-17.5); Hypochromasia Slight; Lymphocytes # (A) 0.2 k/uL (1.0-4.8); Lymphocytes % (A) 2 %; MCH 31.8 pg (25.0-35.0); MCHC 32.5 g/dL (31.0-37.0); MCV 97.9 fL (80.0-100.0); Macrocytosis Slight; Mean Platelet Volume 11.9; Monocytes # (A) 0.5 k/uL (0-1.0); Monocytes % (A) 4 %; Neutrophils # (A) 10.6 k/uL (1.3-7.7); Neutrophils % (A) 93 %; RBC 2.32 m/uL (4.30-5.90); RDW 16.5 % (11.5-15.5); WBC 11.4 k/uL (3.8-10.6)
[2024-12-25 04:57] LABS: ALT 25 U/L (4-49); AST 48 U/L (17-59); Albumin 2.9 g/dL (3.5-5.0); Alkaline Phosphatase 56 U/L (38-126); Anion Gap 9 mmol/L; Blood Urea Nitrogen 73 mg/dL (9-20); Calcium 8.4 mg/dL (8.4-10.2); Carbon Dioxide 25 mmol/L (22-30); Chloride 103 mmol/L (98-107); Glucose 83 mg/dL (74-99); Potassium 4.1 mmol/L (3.5-5.1); Sodium 137 mmol/L (137-145); Total Bilirubin 0.6 mg/dL (0.2-1.3); Total Protein 5.3 g/dL (6.3-8.2)
[2024-12-25 04:58] LABS: Platelet Count 51 k/uL (150-450)
[2024-12-25 05:02] LABS: African American GFR (CKD) 25 (>60 ml/min/1.73 sqM); Non-African American GFR(CKD) 22 (>60 ml/min/1.73 sqM)
--- NOTE | 2024-12-25 06:35 | XR ---
EXAMINATION TYPE: XR chest 1V portable DATE OF EXAM: 12/25/2024 CLINICAL INDICATION: Male, 79 years old with history of chf, progress study. TECHNIQUE: Single AP portable semi-upright view of the chest is obtained. COMPARISON: Chest x-ray from one day earlier and older studies. Persistent small to moderate-sized right greater than left pleural effusions and diffuse right mid to lower lung increased opacity. Cardiac silhouette size stable and upper limits of normal. Surgical ch bonnie to right humerus is partially imaged. IMPRESSION: Persistent small to moderate-sized right greater than left pleural effusions and right mi d to lower lung acute infiltrate and/or edema. No significant change from one day earlier. [facility], , 12/25/2024 6:33 AM
--- NOTE | 2024-12-25 06:53 | PN ---
PROGRESS NOTE DATE OF SERVICE: 12/24/2024 SUBJECTIVE: This is a 79-year-old gentleman admitted with multiple complex medical issues including malignant large right pleural effusion as well as acute hypoxic respiratory failure, also had underlying multiple myeloma. The patient also had renal failure. The patient is extubated. The patient is confused at this time. The patient also drooling and the patient is at high risk for aspiration at this time. I would recommend speech pathology evaluation in the morning before feeding at this time. Otherwise, there is no history of any fever, rigors, or chills. PAST MEDICAL HISTORY: Reviewed. REVIEW OF SYSTEMS: A 14-point review of systems is negative except as mentioned earlier. CURRENT MEDICATIONS: Reviewed. PHYSICAL EXAMINATION: VITAL SIGNS: Pulse is 58, blood pressure 108/59, respirations 20. HEENT: Conjunctivae normal. NECK: No JVD. CARDIOVASCULAR: S1, S2. RESPIRATIONS: Breath sounds diminished at the bases. Bilateral scattered rhonchi and crackles. ABDOMEN: Soft. NERVOUS SYSTEM: Nonfocal. LABORATORY DATA: Hemoglobin is 7. Rest of the labs are noted. ASSESSMENT: 1. Malignant large pleural effusion with acute hypoxic respiratory failure, status post mechanical ventilation. 2. Change in mental status, metabolic encephalopathy. 3. Symptomatic anemia. 4. Acute on chronic renal failure, on hemodialysis. 5. High risk for aspiration. 6. Iatrogenic right pneumothorax. 7. Multiple myeloma. 8. Hypercalcemia. 9. Multiple medical issues. RECOMMENDATIONS: Recommended to continue current management and continue symptomatic treatment. I recommend 1 unit of transfusion with Lasix. Otherwise, today's x-ray was reviewed personally by me. I would also recommend CT scan of the brain without any contrast. Continue to monitor. Guarded prognosis. Further recommendations to follow. MMODL / IJN: [id number] /
[2024-12-25 06:54] LABS: Glucose,Whole Blood 82 mg/dL (70-110)
--- NOTE | 2024-12-25 09:43 | P.PN ---
Subjective Patient is seen in follow-up for acute kidney injury. Remains off vasopressors. Extubated December 23, 2024. Urine output improved post IV Lasix yesterday. Last hemodialysis December 23, 2024. Started on dialysis December 19, 2024. Vital signs are stable. General: No resting in bed. HEENT: On nasal cannula. LUNGS: No audible rhonchi or wheezes. HEART: Rate and Rhythm are regular. ABDOMEN: Nontender. EXTREMITITES: 1+ edema. Objective - Vital Signs Vital signs: Vital Signs Temp 97.9 F 12/25/24 00:00 Pulse 63 12/25/24 09:00 Resp 26 H 12/25/24 09:00 BP 110/54 12/25/24 09:00 Pulse Ox 99 12/25/24 09:00 FiO2 35 12/23/24 12:00 Intake & Output 12/24/24 12/25/24 12/25/24 18:59 06:59 18:59 Intake Total 276 276 69 Output Total 415 625 160 Balance -139 -349 -91 Weight 78.9 kg Intake: IV 276 276 69 .9 KVO 240 240 60 0.9 pressure bag 36 36 9 Output: Urine 415 625 160 Other: Voiding Method Indwelling Catheter Indwelling Catheter # Bowel Movements 1 ABP, PAP, CO, CI - Last Documented Arterial Blood Pressure 120/40 - Labs CBC & Chem 7: 12/25/24 04:30 12/25/24 04:30 Labs: Abnormal Lab Results - Last 24 Hours (Table) 12/24/24 12/24/24 12/25/24 Range/Units 17:24 19:51 00:41 WBC (3.8-10.6) k/uL RBC (4.30-5.90) m/uL Hgb (13.0-17.5) gm/dL Hct (39.0-53.0) % RDW (11.5-15.5) % Plt Count (150-450) k/uL Neutrophils # (1.3-7.7) k/uL Lymphocytes # (1.0-4.8) k/uL BUN (9-20) mg/dL Creatinine (0.66-1.25) mg/dL POC Glucose (mg/dL) 136 H 122 H 112 H (70-110) mg/dL Total Protein (6.3-8.2) g/dL Albumin (3.5-5.0) g/dL 12/25/24 12/25/24 Range/Units 04:30 04:30 WBC 11.4 H (3.8-10.6) k/uL RBC 2.32 L (4.30-5.90) m/uL Hgb 7.4 L (13.0-17.5) gm/dL Hct 22.7 L (39.0-53.0) % RDW 16.5 H (11.5-15.5) % Plt Count 51 L (150-450) k/uL Neutrophils # 10.6 H (1.3-7.7) k/uL Lymphocytes # 0.2 L (1.0-4.8) k/uL BUN 73 H (9-20) mg/dL Creatinine 2.65 H (0.66-1.25) mg/dL POC Glucose (mg/dL) (70-110) mg/dL Total Protein 5.3 L (6.3-8.2) g/dL Albumin 2.9 L (3.5-5.0) g/dL Assessment and Plan Plan: Assessment: 1. Acute kidney injury secondary to ATN. No hydronephrosis noted on imaging. UA fairly benign. Started on hemodialysis December 19, 2024. Femoral catheter was exchanged December 23, 2024. Urine output improved to 50 to 60 cc an hour post IV Lasix. Creatinine in July 2024 was 0.8. 2. Hypernatremia from lack of oral water intake. Status post D5W. Resolved. 3. Volume overload with pleural effusions. Improved with ultrafiltration and diuresis. 4. Multiple myeloma. On chemotherapy. 5. Hypercalcemia secondary to volume contraction as well as multiple myeloma. Improved. 6. Pneumonia s/p antibiotics. 7. Anemia. Due to underlying multiple myeloma. Status post IV iron. Has received blood transfusions this admission. 8. Metabolic acidosis secondary to acute kidney injury. Improved. Plan: Hold off on hemodialysis. Add IV Lasix 40 mg twice daily. Continue to monitor renal function and urine output. Prognosis guarded.
[2024-12-25] MEDS: FUROSEMIDE 10 MG/ML 4 ML VIAL IV SCH (10:57)
[2024-12-25] MEDS: METOPROLOL TARTRATE 25 MG TAB PO SCH (11:45)
[2024-12-25] MEDS: DEXAMETHASONE SOD PHOS (MDV) 40 MG in DEXTROSE 5% IN WATER 50 ML IVPB ONE (11:53)
--- NOTE | 2024-12-25 12:25 | P.CNNES ---
History of Present Illness Consult date: 12/25/24 Requesting physician: Lucina Márquez Reason for Consult: ams History of Present Illness: This is a 79-year-old gentleman with a history of multiple myeloma who has stopped his medication who presents per the request of his oncologist because of abnormal labs and respiratory difficulty. Some of the history is obtained from patient nurse and medical record. Neurology is consulted for altered mental status. During this hospital visit the patient was intubated and was extubated this past weekend. According to the nurse yesterday he was severely confused but today he is doing better and was able to state his name as well as the place. Also during this hospital visit patient received hemodialysis. Patient creatinine was as high as 5.67 and currently is 2.65. Some of the workup during this hospital visit consisted of: This hospital visit patient had worsening of the anemia and it was as low as 5.9 currently 7.4. Patient has acute kidney injury and received hemodialysis currently the creatinine is trending down I reviewed the rest of the lab workup. CT of the head is reported as no acute intracranial process. I personally reviewed the CT and agree with the report Review of Systems Limited but as per HPI. Past Medical History Past Medical History: Cancer, Hyperlipidemia, Hypertension Additional Past Medical History / Comment(s): multiple myeloma History of Any Multi-Drug Resistant Organisms: None Reported Past Surgical History: No Surgical Hx Reported Additional Past Surgical History / Comment(s): Broken arm that required surgery, colon resection Past Anesthesia/Blood Transfusion Reactions: No Reported Reaction Past Psychological History: No Psychological Hx Reported Smoking Status: Never smoker Past Alcohol Use History: None Reported Past Drug Use History: None Reported Medications and Allergies Home Medications Medication Instructions Recorded Confirmed Type Omeprazole 20 mg PO DAILY 11/06/23 12/05/24 History amLODIPine [Norvasc] 5 mg PO DAILY tab 11/13/23 12/05/24 Rx Aspirin 81 mg PO DAILY 03/09/24 12/05/24 History Docusate Sodium 250 mg PO DAILY 03/09/24 12/05/24 History Metoprolol Succinate (ER) [Toprol 25 mg PO DAILY 03/09/24 12/05/24 History Xl] clonazePAM [KlonoPIN] 0.5 mg PO HS 03/09/24 12/05/24 History Acetaminophen Tab [Tylenol Tab] 1,000 mg PO Q6H PRN 12/05/24 12/05/24 History Atorvastatin [Lipitor] 20 mg PO HS 12/05/24 12/05/24 History Calcium Citrate/Vitamin D3 1 tab PO DAILY 12/05/24 12/05/24 History [Calcium Cit 315-Vit D3 6.25 Mcg (250 Iu)] Diphenoxylate HCl/Atropine 1 tab PO QID PRN 12/05/24 12/05/24 History [Lomotil 2.5-0.025 mg Tablet] Loperamide [Imodium] 2 - 4 mg PO QID PRN 12/05/24 12/05/24 History Multivit-Min/FA/Lycopen/Lutein 1 tab PO DAILY 12/05/24 12/05/24 History [Centrum Silver Tablet] Naproxen Sodium [Aleve] 220 mg PO BID PRN 12/05/24 12/05/24 History Allergies Allergy/AdvReac Type Severity Reaction Status Date / Time No Known Allergies Allergy Verified 12/05/24 18:09 Physical Examination - Vital Signs Vital Signs: Vital Signs Temp Pulse Resp BP Pulse Ox 12/25/24 11:45 64 12/25/24 11:35 65 12/25/24 10:00 62 15 107/56 95 12/25/24 09:00 63 26 H 110/54 99 12/25/24 08:00 97.6 F 68 29 H 116/58 97 12/25/24 07:00 75 22 104/48 94 L 12/25/24 06:00 68 20 103/53 98 12/25/24 05:00 76 31 H 108/61 93 L 12/25/24 04:40 74 12/25/24 04:29 72 12/25/24 04:00 71 28 H 104/58 97 12/25/24 03:00 75 24 103/55 96 12/25/24 02:00 69 22 104/55 94 L 12/25/24 01:00 74 21 110/62 94 L 12/25/24 00:08 68 12/25/24 00:00 97.9 F 70 23 102/53 96 12/24/24 23:58 68 12/24/24 23:17 67 25 H 102/53 92 L 12/24/24 23:00 63 21 119/61 92 L 12/24/24 22:00 65 19 109/59 93 L 12/24/24 21:00 70 30 H 114/66 92 L 12/24/24 20:53 67 12/24/24 20:41 61 12/24/24 20:00 97.8 F 58 L 13 122/62 98 12/24/24 19:00 59 L 11 L 112/57 98 12/24/24 18:00 54 L 22 113/56 99 12/24/24 17:00 58 L 24 106/59 100 12/24/24 16:00 98.2 F 58 L 24 106/53 96 12/24/24 15:00 58 L 22 110/66 98 12/24/24 14:00 63 26 H 115/67 98 12/24/24 13:00 60 22 108/59 97 12/24/24 12:39 58 L 12/24/24 12:28 59 L Intake and Output 12/24/24 12/25/24 12/25/24 22:59 06:59 14:59 Intake Total 184 184 92 Output Total 330 450 195 Balance -146 -266 -103 Intake: IV 184 184 92 .9 KVO 160 160 80 0.9 pressure bag 24 24 12 Output: Urine 330 450 195 Other: Voiding Method Indwelling Catheter Indwelling Catheter # Bowel Movements 1 Weight 78.9 kg 78.9 kg ABP, PAP, CO, CI - Last 8 Hours Arterial Blood Pressure 123/27 Arterial Blood Pressure 120/40 Arterial Blood Pressure 114/40 Arterial Blood Pressure 127/45 Arterial Blood Pressure 113/36 Arterial Blood Pressure 113/35 General: Lying in bed and does not appear in acute distress but appears lethargic. Lung: Coarse to auscultation throughout. Neuro: Is moderate to severely drowsy but is awakeable to voice. He nods appropriately to name and place. Followed few simple commands such as closing eyes to commands. No facial weakness. Has mild increase tone in the uppers upon flexion elbows. Otherwise rest is limited. Results - Laboratory Findings CBC and BMP: 12/25/24 04:30 12/25/24 04:30 Abnormal Lab Findings: Abnormal Labs 12/05/24 12/05/24 12/05/24 16:30 16:30 16:30 WBC RBC 2.70 L Hgb 9.0 L Hct 26.9 L MCV RDW Plt Count 134 L Neutrophils # Lymphocytes # Lymphocytes # (Manual) 0.87 L Monocytes # Macrocytosis PT INR APTT 19.8 L ABG pH ABG pCO2 ABG pO2 ABG HCO3 ABG Total CO2 ABG O2 Saturation Hemoglobin Sodium Potassium Chloride Carbon Dioxide 21 L Anion Gap BUN 40 H Creatinine 1.40 H Est GFR (CKD-EPI) BUN/Creatinine Ratio Glucose 103 H POC Glucose (mg/dL) Uric Acid Calcium 10.5 H Ionized Calcium Maggie 5.4 H Phosphorus Magnesium 1.4 L Iron % Saturation Transferrin Ferritin AST Total Protein Albumin Procalcitonin Urine Protein Urine Blood Uric Acid Crystals U Free [place] Ch U Free Lambda Light Ch IgG IgM Crossmatch 12/06/24 12/06/24 12/06/24 04:32 08:36 08:36 WBC RBC 2.67 L Hgb 9.3 L Hct 27.4 L MCV 102.7 H RDW Plt Count 122 L Neutrophils # Lymphocytes # 0.9 L Lymphocytes # (Manual) Monocytes # Macrocytosis PT 13.8 H INR 1.3 H APTT 42.0 H ABG pH ABG pCO2 ABG pO2 ABG HCO3 ABG Total CO2 ABG O2 Saturation Hemoglobin Sodium Potassium Chloride Carbon Dioxide 21.2 L Anion Gap 14.80 H BUN 31.9 H Creatinine Est GFR (CKD-EPI) 51 L BUN/Creatinine Ratio 22.79 H Glucose POC Glucose (mg/dL) Uric Acid Calcium Ionized Calcium Maggie Phosphorus Magnesium Iron % Saturation Transferrin Ferritin AST Total Protein Albumin Procalcitonin Urine Protein Urine Blood Uric Acid Crystals U Free [place] Ch U Free Lambda Light Ch IgG IgM Crossmatch 12/06/24 12/07/24 12/07/24 10:00 00:04 02:20 WBC RBC Hgb Hct MCV RDW Plt Count Neutrophils # Lymphocytes # Lymphocytes # (Manual) Monocytes # Macrocytosis PT INR APTT 30.6 H ABG pH ABG pCO2 ABG pO2 ABG HCO3 ABG Total CO2 ABG O2 Saturation Hemoglobin Sodium Potassium Chloride 108 H Carbon Dioxide 21 L Anion Gap BUN 32 H Creatinine 1.41 H Est GFR (CKD-EPI) BUN/Creatinine Ratio Glucose 109 H POC Glucose (mg/dL) 126 H Uric Acid Calcium Ionized Calcium Maggie Phosphorus Magnesium Iron % Saturation Transferrin Ferritin AST Total Protein 5.7 L Albumin 3.4 L Procalcitonin Urine Protein Urine Blood Uric Acid Crystals U Free [place] Ch U Free [place] Light Ch IgG IgM Crossmatch 0312/07/24 12/07/24 07:03 07:03 10:41 WBC RBC 2.69 L 2.49 L Hgb 8.8 L 8.5 L Hct 28.1 L 25.3 L MCV 104.5 H 101.8 H RDW 15.7 H Plt Count 138 L 115 L Neutrophils # Lymphocytes # 0.7 L 0.5 L Lymphocytes # (Manual) Monocytes # Macrocytosis PT INR APTT ABG pH ABG pCO2 ABG pO2 ABG HCO3 ABG Total CO2 ABG O2 Saturation Hemoglobin Sodium Potassium Chloride 109 H Carbon Dioxide Anion Gap BUN 33 H Creatinine 1.74 H Est GFR (CKD-EPI) BUN/Creatinine Ratio Glucose 114 H POC Glucose (mg/dL) Uric Acid Calcium Ionized Calcium Maggie Phosphorus Magnesium Iron % Saturation Transferrin Ferritin AST Total Protein Albumin Procalcitonin Urine Protein Urine Blood Uric Acid Crystals U Free [place] Ch U Free [place] Light Ch IgG IgM Crossmatch 12/08/24 12/08/24 12/09/24 05:21 05:21 08:09 WBC RBC 2.26 L 2.20 L Hgb 7.7 L 7.4 L Hct 23.1 L 23.2 L MCV 102.3 H 105.3 H RDW 15.9 H Plt Count 121 L 127 L Neutrophils # Lymphocytes # 0.7 L 0.9 L Lymphocytes # (Manual) Monocytes # Macrocytosis PT INR APTT ABG pH ABG pCO2 ABG pO2 ABG HCO3 ABG Total CO2 ABG O2 Saturation Hemoglobin Sodium Potassium Chloride Carbon Dioxide Anion Gap BUN 34 H Creatinine 1.92 H Est GFR (CKD-EPI) BUN/Creatinine Ratio Glucose POC Glucose (mg/dL) Uric Acid Calcium Ionized Calcium Maggie Phosphorus Magnesium Iron % Saturation Transferrin Ferritin AST Total Protein 5.2 L Albumin 3.1 L Procalcitonin Urine Protein Urine Blood Uric Acid Crystals U Free [place] Ch U Free [place] Light Ch IgG IgM Crossmatch 12/09/24 12/10/24 12/10/24 08:09 10:18 14:20 WBC RBC Hgb Hct MCV RDW Plt Count Neutrophils # Lymphocytes # Lymphocytes # (Manual) Monocytes # Macrocytosis PT INR APTT ABG pH ABG pCO2 ABG pO2 ABG HCO3 ABG Total CO2 ABG O2 Saturation Hemoglobin Sodium Potassium Chloride 112 H 111 H Carbon Dioxide Anion Gap BUN 31 H 31 H Creatinine 1.75 H 1.82 H Est GFR (CKD-EPI) BUN/Creatinine Ratio Glucose POC Glucose (mg/dL) Uric Acid Calcium Ionized Calcium Maggie Phosphorus Magnesium Iron % Saturation Transferrin Ferritin AST Total Protein Albumin Procalcitonin Urine Protein Trace H Urine Blood Uric Acid Crystals Occasional H U Free [place] Ch U Free [place] Ch IgG IgM Crossmatch 12/11/24 12/11/24 12/11/24 04:52 04:52 04:52 WBC RBC 2.38 L Hgb 8.1 L Hct 24.8 L MCV 104.2 H RDW Plt Count 140 L Neutrophils # Lymphocytes # Lymphocytes # (Manual) Monocytes # Macrocytosis PT INR APTT ABG pH ABG pCO2 ABG pO2 ABG HCO3 ABG Total CO2 ABG O2 Saturation Hemoglobin Sodium 147 H Potassium Chloride 112 H Carbon Dioxide Anion Gap BUN 32 H Creatinine 1.99 H Est GFR (CKD-EPI) BUN/Creatinine Ratio Glucose 103 H POC Glucose (mg/dL) Uric Acid Calcium Ionized Calcium Maggie Phosphorus Magnesium Iron 36 L % Saturation 13.95 L Transferrin 184.0 L Ferritin 989.0 H AST Total Protein Albumin Procalcitonin Urine Protein Urine Blood Uric Acid Crystals U Free [place] Ch U Free [place] Ch IgG IgM Crossmatch 12/11/24 12/12/24 12/12/24 14:20 07:12 22:10 WBC RBC Hgb Hct MCV RDW Plt Count Neutrophils # Lymphocytes # Lymphocytes # (Manual) Monocytes # Macrocytosis PT INR APTT ABG pH ABG pCO2 ABG pO2 ABG HCO3 ABG Total CO2 ABG O2 Saturation Hemoglobin Sodium Potassium Chloride 111 H Carbon Dioxide Anion Gap BUN 34 H Creatinine 2.03 H Est GFR (CKD-EPI) BUN/Creatinine Ratio Glucose 104 H POC Glucose (mg/dL) 137 H Uric Acid Calcium Ionized Calcium Maggie Phosphorus Magnesium Iron % Saturation Transferrin Ferritin AST Total Protein Albumin Procalcitonin Urine Protein Urine Blood Uric Acid Crystals U Free [place] Ch 65.89 H U Free [place] Light Ch 1.09 H IgG IgM Crossmatch 12/12/24 12/12/24 12/13/24 22:21 22:24 00:03 WBC RBC Hgb Hct MCV RDW Plt Count Neutrophils # Lymphocytes # Lymphocytes # (Manual) Monocytes # Macrocytosis PT INR APTT ABG pH 7.26 L ABG pCO2 58 H ABG pO2 80 L ABG HCO3 26 H ABG Total CO2 28 H ABG O2 Saturation Hemoglobin 8.2 L Sodium 146 H Potassium Chloride 109 H Carbon Dioxide Anion Gap BUN 39 H Creatinine 2.73 H Est GFR (CKD-EPI) BUN/Creatinine Ratio Glucose 130 H POC Glucose (mg/dL) 174 H Uric Acid Calcium Ionized Calcium Maggie Phosphorus Magnesium Iron % Saturation Transferrin Ferritin AST Total Protein Albumin Procalcitonin Urine Protein Urine Blood Uric Acid Crystals U Free [place] Ch U Free [place] Light Ch IgG IgM Crossmatch 12/13/24 12/13/24 12/13/24 00:08 00:20 01:29 WBC RBC Hgb Hct MCV RDW Plt Count Neutrophils # Lymphocytes # Lymphocytes # (Manual) Monocytes # Macrocytosis PT INR APTT ABG pH 7.08 L* 7.33 L ABG pCO2 92 H* ABG pO2 112 H 286 H ABG HCO3 28 H ABG Total CO2 30 H 25 H ABG O2 Saturation >100.0 H Hemoglobin 7.3 L Sodium Potassium Chloride Carbon Dioxide Anion Gap BUN Creatinine Est GFR (CKD-EPI) BUN/Creatinine Ratio Glucose POC Glucose (mg/dL) 190 H Uric Acid Calcium Ionized Calcium Maggie Phosphorus Magnesium Iron % Saturation Transferrin Ferritin AST Total Protein Albumin Procalcitonin Urine Protein Urine Blood Uric Acid Crystals U Free [place] Ch U Free [place] Ch IgG IgM Crossmatch 12/13/24 12/13/24 12/13/24 02:12 02:48 05:24 WBC RBC 2.04 L Hgb 7.0 L Hct 21.3 L MCV 104.5 H RDW Plt Count 139 L Neutrophils # Lymphocytes # 0.3 L Lymphocytes # (Manual) Monocytes # Macrocytosis PT INR APTT ABG pH ABG pCO2 ABG pO2 139 H ABG HCO3 ABG Total CO2 25 H ABG O2 Saturation 99.6 H Hemoglobin 7.3 L Sodium 146 H Potassium Chloride 111 H Carbon Dioxide Anion Gap BUN 41 H Creatinine 2.67 H Est GFR (CKD-EPI) BUN/Creatinine Ratio Glucose 156 H POC Glucose (mg/dL) Uric Acid Calcium Ionized Calcium Maggie Phosphorus Magnesium Iron % Saturation Transferrin Ferritin AST Total Protein Albumin Procalcitonin Urine Protein Urine Blood Uric Acid Crystals U Free [place] Ch U Free [place] Ch IgG IgM Crossmatch 12/13/24 12/14/24 12/14/24 18:47 00:47 05:01 WBC RBC Hgb Hct MCV RDW Plt Count Neutrophils # Lymphocytes # Lymphocytes # (Manual) Monocytes # Macrocytosis PT INR APTT ABG pH ABG pCO2 ABG pO2 ABG HCO3 ABG Total CO2 ABG O2 Saturation Hemoglobin Sodium Potassium Chloride 109 H Carbon Dioxide 21 L Anion Gap BUN 47 H Creatinine 3.30 H Est GFR (CKD-EPI) BUN/Creatinine Ratio Glucose 102 H POC Glucose (mg/dL) 112 H 112 H Uric Acid Calcium Ionized Calcium Maggie Phosphorus Magnesium Iron % Saturation Transferrin Ferritin AST Total Protein Albumin Procalcitonin Urine Protein Urine Blood Uric Acid Crystals U Free [place] Ch U Free [place] Ch IgG IgM Crossmatch 12/14/24 12/14/24 12/14/24 05:01 05:01 05:49 WBC RBC 2.25 L Hgb 7.6 L Hct 23.7 L MCV 105.5 H RDW Plt Count Neutrophils # Lymphocytes # Lymphocytes # (Manual) Monocytes # Macrocytosis PT INR APTT ABG pH ABG pCO2 ABG pO2 ABG HCO3 ABG Total CO2 ABG O2 Saturation 97.3 H Hemoglobin 7.6 L Sodium Potassium Chloride Carbon Dioxide Anion Gap BUN Creatinine Est GFR (CKD-EPI) BUN/Creatinine Ratio Glucose POC Glucose (mg/dL) Uric Acid 17.5 H* Calcium Ionized Calcium Maggie Phosphorus 5.8 H Magnesium Iron % Saturation Transferrin Ferritin AST Total Protein Albumin Procalcitonin Urine Protein Urine Blood Uric Acid Crystals U Free [place] Ch U Free [place] Ch IgG IgM Crossmatch 12/14/24 12/14/24 12/14/24 06:12 13:47 17:48 WBC RBC Hgb Hct MCV RDW Plt Count Neutrophils # Lymphocytes # Lymphocytes # (Manual) Monocytes # Macrocytosis PT INR APTT ABG pH ABG pCO2 ABG pO2 ABG HCO3 ABG Total CO2 ABG O2 Saturation Hemoglobin Sodium Potassium Chloride Carbon Dioxide Anion Gap BUN Creatinine Est GFR (CKD-EPI) BUN/Creatinine Ratio Glucose POC Glucose (mg/dL) 114 H 156 H 213 H Uric Acid Calcium Ionized Calcium Maggie Phosphorus Magnesium Iron % Saturation Transferrin Ferritin AST Total Protein Albumin Procalcitonin Urine Protein Urine Blood Uric Acid Crystals U Free [place] Ch U Free [place] Ch IgG IgM Crossmatch 12/14/24 12/15/24 12/15/24 23:53 05:00 05:00 WBC RBC 2.17 L Hgb 7.4 L Hct 22.9 L MCV 105.3 H RDW Plt Count 140 L Neutrophils # Lymphocytes # 0.3 L Lymphocytes # (Manual) Monocytes # Macrocytosis PT INR APTT ABG pH ABG pCO2 ABG pO2 ABG HCO3 ABG Total CO2 ABG O2 Saturation Hemoglobin Sodium Potassium Chloride Carbon Dioxide 21 L Anion Gap BUN 67 H Creatinine 4.11 H Est GFR (CKD-EPI) BUN/Creatinine Ratio Glucose 173 H POC Glucose (mg/dL) 201 H Uric Acid 10.9 H Calcium Ionized Calcium Maggie Phosphorus 7.0 H Magnesium Iron % Saturation Transferrin Ferritin AST Total Protein 5.4 L Albumin 3.2 L Procalcitonin Urine Protein Urine Blood Uric Acid Crystals U Free [place] Ch U Free [place] Ch IgG IgM Crossmatch 12/15/24 12/15/24 12/15/24 05:30 05:40 11:43 WBC RBC Hgb Hct MCV RDW Plt Count Neutrophils # Lymphocytes # Lymphocytes # (Manual) Monocytes # Macrocytosis PT INR APTT ABG pH 7.29 L ABG pCO2 ABG pO2 ABG HCO3 ABG Total CO2 ABG O2 Saturation 97.2 H Hemoglobin 7.2 L Sodium Potassium Chloride Carbon Dioxide Anion Gap BUN Creatinine Est GFR (CKD-EPI) BUN/Creatinine Ratio Glucose POC Glucose (mg/dL) 183 H 168 H Uric Acid Calcium Ionized Calcium Maggie Phosphorus Magnesium Iron % Saturation Transferrin Ferritin AST Total Protein Albumin Procalcitonin Urine Protein Urine Blood Uric Acid Crystals U Free [place] Ch U Free [place] Ch IgG IgM Crossmatch 12/15/24 12/15/24 12/16/24 17:33 20:01 00:01 WBC RBC Hgb Hct MCV RDW Plt Count Neutrophils # Lymphocytes # Lymphocytes # (Manual) Monocytes # Macrocytosis PT INR APTT ABG pH ABG pCO2 ABG pO2 ABG HCO3 ABG Total CO2 ABG O2 Saturation Hemoglobin Sodium Potassium Chloride Carbon Dioxide Anion Gap BUN Creatinine Est GFR (CKD-EPI) BUN/Creatinine Ratio Glucose POC Glucose (mg/dL) 196 H 196 H 190 H Uric Acid Calcium Ionized Calcium Maggie Phosphorus Magnesium Iron % Saturation Transferrin Ferritin AST Total Protein Albumin Procalcitonin Urine Protein Urine Blood Uric Acid Crystals U Free [place] Ch U Free [place] Ch IgG IgM Crossmatch 12/16/24 12/16/24 12/16/24 04:07 04:32 04:32 WBC 13.6 H RBC 2.18 L Hgb 7.3 L Hct 23.1 L MCV 106.1 H RDW Plt Count 142 L Neutrophils # 12.3 H Lymphocytes # 0.4 L Lymphocytes # (Manual) Monocytes # Macrocytosis PT INR APTT ABG pH 7.25 L ABG pCO2 46 H ABG pO2 111 H ABG HCO3 20 L ABG Total CO2 ABG O2 Saturation 98.4 H Hemoglobin 7.3 L Sodium Potassium 5.2 H Chloride Carbon Dioxide 18 L Anion Gap BUN 100 H Creatinine 4.54 H Est GFR (CKD-EPI) BUN/Creatinine Ratio Glucose 151 H POC Glucose (mg/dL) Uric Acid 8.6 H Calcium Ionized Calcium Maggie Phosphorus 11.1 H* Magnesium Iron % Saturation Transferrin Ferritin AST Total Protein 5.5 L Albumin 3.3 L Procalcitonin Urine Protein Urine Blood Uric Acid Crystals U Free [place] Ch U Free [place] Ch IgG IgM Crossmatch 12/16/24 12/16/24 12/16/24 06:27 11:51 20:21 WBC RBC Hgb Hct MCV RDW Plt Count Neutrophils # Lymphocytes # Lymphocytes # (Manual) Monocytes # Macrocytosis PT INR APTT ABG pH ABG pCO2 ABG pO2 ABG HCO3 ABG Total CO2 ABG O2 Saturation Hemoglobin Sodium Potassium Chloride Carbon Dioxide Anion Gap BUN Creatinine Est GFR (CKD-EPI) BUN/Creatinine Ratio Glucose POC Glucose (mg/dL) 168 H 163 H 189 H Uric Acid Calcium Ionized Calcium Maggie Phosphorus Magnesium Iron % Saturation Transferrin Ferritin AST Total Protein Albumin Procalcitonin Urine Protein Urine Blood Uric Acid Crystals U Free [place] U Free [place] Ch IgG IgM Crossmatch 12/17/24 12/17/24 12/17/24 02:17 03:57 04:00 WBC RBC Hgb Hct MCV RDW Plt Count Neutrophils # Lymphocytes # Lymphocytes # (Manual) Monocytes # Macrocytosis PT INR APTT ABG pH 7.23 L ABG pCO2 ABG pO2 ABG HCO3 18 L ABG Total CO2 ABG O2 Saturation 97.4 H Hemoglobin 6.9 L* Sodium Potassium 6.0 H Chloride Carbon Dioxide 18 L Anion Gap BUN 146 H* Creatinine 5.02 H Est GFR (CKD-EPI) BUN/Creatinine Ratio Glucose 136 H POC Glucose (mg/dL) 162 H Uric Acid Calcium Ionized Calcium Maggie Phosphorus 12.7 H* Magnesium Iron % Saturation Transferrin Ferritin AST Total Protein 5.2 L Albumin 3.1 L Procalcitonin Urine Protein Urine Blood Uric Acid Crystals U Free [place] Ch U Free [place] Ch IgG IgM Crossmatch 12/17/24 12/17/24 12/17/24 04:00 08:06 12:10 WBC 12.1 H RBC 2.09 L Hgb 7.1 L Hct 22.7 L MCV 108.4 H RDW Plt Count Neutrophils # 10.6 H Lymphocytes # 0.3 L Lymphocytes # (Manual) Monocytes # Macrocytosis Marked A PT INR APTT ABG pH ABG pCO2 ABG pO2 ABG HCO3 ABG Total CO2 ABG O2 Saturation Hemoglobin Sodium Potassium 5.8 H Chloride Carbon Dioxide 16 L Anion Gap BUN 157 H* Creatinine 5.13 H Est GFR (CKD-EPI) BUN/Creatinine Ratio Glucose 139 H POC Glucose (mg/dL) 158 H Uric Acid Calcium Ionized Calcium Maggie Phosphorus Magnesium Iron % Saturation Transferrin Ferritin AST Total Protein Albumin Procalcitonin Urine Protein Urine Blood Uric Acid Crystals U Free [place] Ch U Free [place] Ch IgG IgM Crossmatch 12/17/24 12/17/24 12/17/24 13:40 19:36 23:51 WBC RBC Hgb Hct MCV RDW Plt Count Neutrophils # Lymphocytes # Lymphocytes # (Manual) Monocytes # Macrocytosis PT INR APTT ABG pH ABG pCO2 ABG pO2 ABG HCO3 ABG Total CO2 ABG O2 Saturation Hemoglobin Sodium Potassium Chloride Carbon Dioxide Anion Gap BUN Creatinine Est GFR (CKD-EPI) BUN/Creatinine Ratio Glucose POC Glucose (mg/dL) 148 H 145 H 130 H Uric Acid Calcium Ionized Calcium Maggie Phosphorus Magnesium Iron % Saturation Transferrin Ferritin AST Total Protein Albumin Procalcitonin Urine Protein Urine Blood Uric Acid Crystals U Free [place] Ch U Free [place] Ch IgG IgM Crossmatch 12/18/24 12/18/24 12/18/24 05:16 05:30 05:30 WBC 12.3 H RBC 2.05 L Hgb 7.0 L Hct 21.9 L MCV 106.6 H RDW Plt Count Neutrophils # 10.3 H Lymphocytes # 0.6 L Lymphocytes # (Manual) Monocytes # 1.1 H Macrocytosis PT INR APTT ABG pH 7.19 L* ABG pCO2 ABG pO2 ABG HCO3 17 L ABG Total CO2 18 L ABG O2 Saturation Hemoglobin 6.8 L* Sodium Potassium 5.7 H Chloride Carbon Dioxide 16 L Anion Gap BUN 191 H* Creatinine 5.67 H Est GFR (CKD-EPI) BUN/Creatinine Ratio Glucose 110 H POC Glucose (mg/dL) Uric Acid Calcium Ionized Calcium Maggie Phosphorus Magnesium Iron % Saturation Transferrin Ferritin AST Total Protein Albumin Procalcitonin Urine Protein Urine Blood Uric Acid Crystals U Free [place] Ch U Free [place] Ch IgG IgM Crossmatch 12/18/24 12/18/24 12/18/24 09:02 12:18 12:40 WBC RBC Hgb Hct MCV RDW Plt Count Neutrophils # Lymphocytes # Lymphocytes # (Manual) Monocytes # Macrocytosis PT INR APTT ABG pH ABG pCO2 ABG pO2 ABG HCO3 ABG Total CO2 ABG O2 Saturation Hemoglobin Sodium Potassium 5.4 H Chloride Carbon Dioxide Anion Gap BUN Creatinine Est GFR (CKD-EPI) BUN/Creatinine Ratio Glucose POC Glucose (mg/dL) 144 H 149 H Uric Acid Calcium Ionized Calcium Maggie Phosphorus Magnesium Iron % Saturation Transferrin Ferritin AST Total Protein Albumin Procalcitonin Urine Protein Urine Blood Uric Acid Crystals U Free [place] Ch U Free [place] Ch IgG IgM Crossmatch 12/19/24 12/19/24 12/19/24 00:14 05:51 06:00 WBC RBC Hgb Hct MCV RDW Plt Count Neutrophils # Lymphocytes # Lymphocytes # (Manual) Monocytes # Macrocytosis PT INR APTT ABG pH ABG pCO2 33 L ABG pO2 ABG HCO3 20 L ABG Total CO2 ABG O2 Saturation 97.8 H Hemoglobin 5.9 L* Sodium Potassium Chloride Carbon Dioxide Anion Gap BUN Creatinine Est GFR (CKD-EPI) BUN/Creatinine Ratio Glucose POC Glucose (mg/dL) 171 H Uric Acid Calcium Ionized Calcium Maggie Phosphorus Magnesium Iron % Saturation Transferrin Ferritin AST Total Protein Albumin Procalcitonin 0.67 H Urine Protein Urine Blood Uric Acid Crystals U Free [place] Ch U Free [place] Ch IgG IgM Crossmatch 12/19/24 12/19/24 12/19/24 06:00 06:00 06:00 WBC RBC 1.74 L Hgb 5.9 L* Hct 18.3 L* MCV 104.9 H RDW Plt Count 135 L Neutrophils # Lymphocytes # 0.3 L Lymphocytes # (Manual) Monocytes # Macrocytosis PT INR APTT ABG pH ABG pCO2 ABG pO2 ABG HCO3 ABG Total CO2 ABG O2 Saturation Hemoglobin Sodium Potassium Chloride 108 H Carbon Dioxide 19 L Anion Gap BUN 203 H* Creatinine 4.54 H Est GFR (CKD-EPI) BUN/Creatinine Ratio Glucose 147 H POC Glucose (mg/dL) Uric Acid Calcium 8.3 L Ionized Calcium Maggie Phosphorus Magnesium Iron % Saturation Transferrin Ferritin AST Total Protein Albumin Procalcitonin Urine Protein Urine Blood Uric Acid Crystals U Free [place] Ch U Free [place] Ch IgG IgM Crossmatch See Detail 12/19/24 12/19/24 12/19/24 11:20 13:12 13:12 WBC RBC 2.06 L Hgb 6.8 L* Hct 20.2 L MCV RDW 17.5 H Plt Count 124 L Neutrophils # Lymphocytes # 0.4 L Lymphocytes # (Manual) Monocytes # Macrocytosis PT INR APTT ABG pH ABG pCO2 ABG pO2 ABG HCO3 ABG Total CO2 ABG O2 Saturation Hemoglobin Sodium Potassium Chloride Carbon Dioxide Anion Gap BUN Creatinine Est GFR (CKD-EPI) BUN/Creatinine Ratio Glucose POC Glucose (mg/dL) 154 H 166 H Uric Acid Calcium Ionized Calcium Maggie Phosphorus Magnesium Iron % Saturation Transferrin Ferritin AST Total Protein Albumin Procalcitonin Urine Protein Urine Blood Uric Acid Crystals U Free [place] Ch U Free [place] Light Ch IgG IgM Crossmatch 12/19/24 12/19/24 12/19/24 17:28 17:47 18:32 WBC 11.1 H RBC 2.53 L Hgb 8.1 L Hct 24.4 L MCV RDW 18.1 H Plt Count 108 L Neutrophils # 9.9 H Lymphocytes # 0.4 L Lymphocytes # (Manual) Monocytes # Macrocytosis PT INR APTT ABG pH ABG pCO2 ABG pO2 ABG HCO3 ABG Total CO2 ABG O2 Saturation Hemoglobin Sodium Potassium Chloride Carbon Dioxide Anion Gap BUN Creatinine Est GFR (CKD-EPI) BUN/Creatinine Ratio Glucose POC Glucose (mg/dL) 172 H Uric Acid Calcium Ionized Calcium Maggie Phosphorus Magnesium Iron % Saturation Transferrin Ferritin AST Total Protein Albumin Procalcitonin Urine Protein Urine Blood Uric Acid Crystals U Free [place] Ch U Free Lambda Light Ch IgG 379.0 L IgM <35.0 L Crossmatch 12/19/24 12/19/24 12/19/24 18:32 20:25 23:59 WBC RBC Hgb Hct MCV RDW Plt Count Neutrophils # Lymphocytes # Lymphocytes # (Manual) Monocytes # Macrocytosis PT INR APTT ABG pH ABG pCO2 ABG pO2 ABG HCO3 ABG Total CO2 ABG O2 Saturation Hemoglobin Sodium Potassium Chloride Carbon Dioxide Anion Gap BUN 139 H* Creatinine 2.97 H Est GFR (CKD-EPI) BUN/Creatinine Ratio Glucose 155 H POC Glucose (mg/dL) 163 H 147 H Uric Acid Calcium 8.3 L Ionized Calcium Maggie Phosphorus Magnesium Iron % Saturation Transferrin Ferritin AST Total Protein Albumin Procalcitonin Urine Protein Urine Blood Uric Acid Crystals U Free [place] Ch U Free Lambda Light Ch IgG IgM Crossmatch 12/20/24 12/20/24 12/20/24 04:08 05:12 05:14 WBC RBC Hgb Hct MCV RDW Plt Count Neutrophils # Lymphocytes # Lymphocytes # (Manual) Monocytes # Macrocytosis PT INR APTT ABG pH 7.48 H ABG pCO2 31 L ABG pO2 ABG HCO3 ABG Total CO2 ABG O2 Saturation 98.5 H Hemoglobin 7.6 L Sodium Potassium Chloride Carbon Dioxide Anion Gap BUN 144 H* Creatinine 2.85 H Est GFR (CKD-EPI) BUN/Creatinine Ratio Glucose 125 H POC Glucose (mg/dL) 148 H Uric Acid Calcium Ionized Calcium Maggie Phosphorus Magnesium Iron % Saturation Transferrin Ferritin AST Total Protein Albumin Procalcitonin Urine Protein Urine Blood Uric Acid Crystals U Free [place] Ch U Free [place] Light Ch IgG IgM Crossmatch 12/20/24 12/20/24 12/20/24 05:14 11:50 17:49 WBC 11.6 H RBC 2.37 L Hgb 7.8 L Hct 22.9 L MCV RDW 17.5 H Plt Count 107 L Neutrophils # 10.1 H Lymphocytes # 0.6 L Lymphocytes # (Manual) Monocytes # Macrocytosis PT INR APTT ABG pH ABG pCO2 ABG pO2 ABG HCO3 ABG Total CO2 ABG O2 Saturation Hemoglobin Sodium Potassium Chloride Carbon Dioxide Anion Gap BUN Creatinine Est GFR (CKD-EPI) BUN/Creatinine Ratio Glucose POC Glucose (mg/dL) 140 H 130 H Uric Acid Calcium Ionized Calcium Maggie Phosphorus Magnesium Iron % Saturation Transferrin Ferritin AST Total Protein Albumin Procalcitonin Urine Protein Urine Blood Uric Acid Crystals U Free [place] Ch U Free [place] Light Ch IgG IgM Crossmatch 12/20/24 12/21/24 12/21/24 23:25 04:43 05:02 WBC RBC Hgb Hct MCV RDW Plt Count Neutrophils # Lymphocytes # Lymphocytes # (Manual) Monocytes # Macrocytosis PT INR APTT ABG pH ABG pCO2 33 L ABG pO2 ABG HCO3 ABG Total CO2 ABG O2 Saturation 98.4 H Hemoglobin 6.8 L* Sodium Potassium Chloride Carbon Dioxide Anion Gap BUN 103 H* Creatinine 2.75 H Est GFR (CKD-EPI) BUN/Creatinine Ratio Glucose 105 H POC Glucose (mg/dL) 123 H Uric Acid Calcium 8.1 L Ionized Calcium Maggie Phosphorus Magnesium Iron % Saturation Transferrin Ferritin AST Total Protein Albumin Procalcitonin Urine Protein Urine Blood Uric Acid Crystals U Free [place] Ch U Free [place] Light Ch IgG IgM Crossmatch 12/21/24 12/21/24 12/21/24 05:02 05:05 11:52 WBC RBC 2.13 L Hgb 7.0 L Hct 20.7 L MCV RDW 17.4 H Plt Count 85 L Neutrophils # 9.2 H Lymphocytes # 0.5 L Lymphocytes # (Manual) Monocytes # Macrocytosis PT INR APTT ABG pH ABG pCO2 ABG pO2 ABG HCO3 ABG Total CO2 ABG O2 Saturation Hemoglobin Sodium Potassium Chloride Carbon Dioxide Anion Gap BUN Creatinine Est GFR (CKD-EPI) BUN/Creatinine Ratio Glucose POC Glucose (mg/dL) 119 H 113 H Uric Acid Calcium Ionized Calcium Maggie Phosphorus Magnesium Iron % Saturation Transferrin Ferritin AST Total Protein Albumin Procalcitonin Urine Protein Urine Blood Uric Acid Crystals U Free [place] Ch U Free [place] Light Ch IgG IgM Crossmatch 12/21/24 12/21/24 12/21/24 12:21 17:50 18:33 WBC RBC Hgb Hct MCV RDW Plt Count Neutrophils # Lymphocytes # Lymphocytes # (Manual) Monocytes # Macrocytosis PT INR APTT ABG pH ABG pCO2 ABG pO2 ABG HCO3 ABG Total CO2 ABG O2 Saturation Hemoglobin Sodium Potassium Chloride Carbon Dioxide Anion Gap BUN Creatinine Est GFR (CKD-EPI) BUN/Creatinine Ratio Glucose POC Glucose (mg/dL) 112 H 113 H Uric Acid Calcium Ionized Calcium Maggie Phosphorus Magnesium Iron % Saturation Transferrin Ferritin AST Total Protein Albumin Procalcitonin Urine Protein Trace H Urine Blood Small H Uric Acid Crystals U Free [place] Ch U Free [place] Ch IgG IgM Crossmatch 12/22/24 12/22/24 12/22/24 04:44 04:44 04:44 WBC RBC 2.10 L Hgb 6.8 L* Hct 20.9 L MCV RDW 17.3 H Plt Count 79 L Neutrophils # Lymphocytes # 0.4 L Lymphocytes # (Manual) Monocytes # Macrocytosis PT INR APTT ABG pH ABG pCO2 34 L ABG pO2 ABG HCO3 ABG Total CO2 ABG O2 Saturation 97.6 H Hemoglobin 6.7 L* Sodium 135 L Potassium Chloride Carbon Dioxide Anion Gap BUN 68 H Creatinine 2.72 H Est GFR (CKD-EPI) BUN/Creatinine Ratio Glucose POC Glucose (mg/dL) Uric Acid Calcium 8.1 L Ionized Calcium Maggie Phosphorus Magnesium Iron % Saturation Transferrin Ferritin AST Total Protein 5.3 L Albumin 2.8 L Procalcitonin Urine Protein Urine Blood Uric Acid Crystals U Free [place] Ch U Free [place] Ch IgG IgM Crossmatch 12/22/24 12/22/24 12/22/24 17:17 17:20 17:20 WBC RBC 2.33 L Hgb 7.6 L Hct 23.0 L MCV RDW 17.1 H Plt Count 68 L Neutrophils # 8.2 H Lymphocytes # 0.2 L Lymphocytes # (Manual) Monocytes # Macrocytosis PT INR APTT 21.0 L ABG pH ABG pCO2 ABG pO2 ABG HCO3 ABG Total CO2 ABG O2 Saturation Hemoglobin Sodium Potassium Chloride Carbon Dioxide Anion Gap BUN Creatinine Est GFR (CKD-EPI) BUN/Creatinine Ratio Glucose POC Glucose (mg/dL) 128 H Uric Acid Calcium Ionized Calcium Maggie Phosphorus Magnesium Iron % Saturation Transferrin Ferritin AST Total Protein Albumin Procalcitonin Urine Protein Urine Blood Uric Acid Crystals U Free [place] Ch U Free [place] Ch IgG IgM Crossmatch 12/22/24 12/23/24 12/23/24 23:26 04:45 04:45 WBC RBC 2.41 L Hgb 7.9 L Hct 24.0 L MCV RDW 17.4 H Plt Count 64 L Neutrophils # 7.9 H Lymphocytes # 0.2 L Lymphocytes # (Manual) Monocytes # Macrocytosis PT INR APTT ABG pH ABG pCO2 ABG pO2 ABG HCO3 ABG Total CO2 ABG O2 Saturation Hemoglobin Sodium 136 L Potassium Chloride Carbon Dioxide 18 L Anion Gap BUN 89 H Creatinine 3.03 H Est GFR (CKD-EPI) BUN/Creatinine Ratio Glucose 122 H POC Glucose (mg/dL) 142 H Uric Acid Calcium 7.7 L Ionized Calcium Maggie Phosphorus Magnesium Iron % Saturation Transferrin Ferritin AST 60 H Total Protein 5.3 L Albumin 2.8 L Procalcitonin Urine Protein Urine Blood Uric Acid Crystals U Free [place] Ch U Free [place] Ch IgG IgM Crossmatch 04/02/1112/23/24 12/23/24 05:07 06:27 11:38 WBC RBC Hgb Hct MCV RDW Plt Count Neutrophils # Lymphocytes # Lymphocytes # (Manual) Monocytes # Macrocytosis PT INR APTT ABG pH ABG pCO2 32 L ABG pO2 ABG HCO3 20 L ABG Total CO2 ABG O2 Saturation 97.2 H Hemoglobin 7.1 L Sodium Potassium Chloride Carbon Dioxide Anion Gap BUN Creatinine Est GFR (CKD-EPI) BUN/Creatinine Ratio Glucose POC Glucose (mg/dL) 132 H 126 H Uric Acid Calcium Ionized Calcium Maggie Phosphorus Magnesium Iron % Saturation Transferrin Ferritin AST Total Protein Albumin Procalcitonin Urine Protein Urine Blood Uric Acid Crystals U Free [place] Ch U Free [place] Ch IgG IgM Crossmatch 12/23/24 12/23/24 12/23/24 12:20 18:00 23:28 WBC RBC Hgb Hct MCV RDW Plt Count Neutrophils # Lymphocytes # Lymphocytes # (Manual) Monocytes # Macrocytosis PT INR APTT ABG pH ABG pCO2 33 L ABG pO2 ABG HCO3 20 L ABG Total CO2 ABG O2 Saturation 98.5 H Hemoglobin 7.1 L Sodium Potassium Chloride Carbon Dioxide Anion Gap BUN Creatinine Est GFR (CKD-EPI) BUN/Creatinine Ratio Glucose POC Glucose (mg/dL) 118 H 114 H Uric Acid Calcium Ionized Calcium Maggie Phosphorus Magnesium Iron % Saturation Transferrin Ferritin AST Total Protein Albumin Procalcitonin Urine Protein Urine Blood Uric Acid Crystals U Free [place] Ch U Free [place] Ch IgG IgM Crossmatch 12/24/24 12/24/24 12/24/24 05:30 05:30 17:24 WBC RBC 2.14 L Hgb 7.0 L Hct 20.8 L MCV RDW 16.6 H Plt Count 50 L Neutrophils # 8.0 H Lymphocytes # 0.3 L Lymphocytes # (Manual) Monocytes # Macrocytosis PT INR APTT ABG pH ABG pCO2 ABG pO2 ABG HCO3 ABG Total CO2 ABG O2 Saturation Hemoglobin Sodium 133 L Potassium Chloride Carbon Dioxide Anion Gap BUN 56 H Creatinine 2.32 H Est GFR (CKD-EPI) BUN/Creatinine Ratio Glucose POC Glucose (mg/dL) 136 H Uric Acid Calcium 7.7 L Ionized Calcium Maggie Phosphorus Magnesium Iron % Saturation Transferrin Ferritin AST Total Protein Albumin Procalcitonin Urine Protein Urine Blood Uric Acid Crystals U Free [place] Ch U Free [place] Ch IgG IgM Crossmatch 12/24/24 12/25/24 12/25/24 19:51 00:41 04:30 WBC 11.4 H RBC 2.32 L Hgb 7.4 L Hct 22.7 L MCV RDW 16.5 H Plt Count 51 L Neutrophils # 10.6 H Lymphocytes # 0.2 L Lymphocytes # (Manual) Monocytes # Macrocytosis PT INR APTT ABG pH ABG pCO2 ABG pO2 ABG HCO3 ABG Total CO2 ABG O2 Saturation Hemoglobin Sodium Potassium Chloride Carbon Dioxide Anion Gap BUN Creatinine Est GFR (CKD-EPI) BUN/Creatinine Ratio Glucose POC Glucose (mg/dL) 122 H 112 H Uric Acid Calcium Ionized Calcium Maggie Phosphorus Magnesium Iron % Saturation Transferrin Ferritin AST Total Protein Albumin Procalcitonin Urine Protein Urine Blood Uric Acid Crystals U Free [place] Ch U Free [place] Ch IgG IgM Crossmatch 12/25/24 04:30 WBC RBC Hgb Hct MCV RDW Plt Count Neutrophils # Lymphocytes # Lymphocytes # (Manual) Monocytes # Macrocytosis PT INR APTT ABG pH ABG pCO2 ABG pO2 ABG HCO3 ABG Total CO2 ABG O2 Saturation Hemoglobin Sodium Potassium Chloride Carbon Dioxide Anion Gap BUN 73 H Creatinine 2.65 H Est GFR (CKD-EPI) BUN/Creatinine Ratio Glucose POC Glucose (mg/dL) Uric Acid Calcium Ionized Calcium Maggie Phosphorus Magnesium Iron % Saturation Transferrin Ferritin AST Total Protein 5.3 L Albumin 2.9 L Procalcitonin Urine Protein Urine Blood Uric Acid Crystals U Free [place] Ch U Free [place] Light Ch IgG IgM Crossmatch Assessment and Plan Assessment: This is a 79-year-old gentleman with a history of multiple myeloma who is noncompliant with his cancer medication who presents to the emergency department on 12/05/2024 per his oncology request because of elevated temps and respiratory issues. Social patient was intubated and he recently extubated as well as had dialysis during this hospital visit. Altered mental status due to toxic metabolic encephalopathy. Patient has acute kidney injury and required dialysis, has elevated ionized calcium, anemia level and respiratory issues. CT of the head is unremarkable for any acute process. Per the nurse, his mentation is better today compared to yesterday. Acute on chronic kidney injury patient received dialysis Hypernatremia--resolved Hypercalcemia Multiple myeloma on chemotherapy Volume overload with pleural effusion Acute on chronic anemia Medication noncompliance and patient was not compliant with his cancer therapy Plan: I ordered a routine EEG, ammonia level, vitamin B12, folate, TSH Oncology consulted Nephrology is consulted Will defer the rest of the medical management to primary other specialist Plan discussed with the patient's nurse. Thank you for the consultation Time with Patient: Greater than 30
[2024-12-25 12:45] LABS: Glucose,Whole Blood 87 mg/dL (70-110)
--- NOTE | 2024-12-25 13:07 | P.PN ---
Subjective Progress Note Date: 12/25/24 Principal diagnosis: Acute hypoxic respiratory failure with large right-sided pleural effusion, multiple myeloma, Patient is a 79-year-old male with past medical history significant for hypertension, hyperlipidemia, KYM, multiple myeloma. His PCP is Dr. Jaimes. Also, follows with his oncologist Dr. Broderick. Patient had a bone marrow biopsy back on 11/11/2023 which was positive for multiple myeloma. Previously on systemic treatment, which he had stopped, apparently confused on whether he should continue the medication. Patient sent in by his oncologist yesterday for abnormal labs. On arrival, complaining of increased work of breathing over the last month. Occasional cough with mucus and occasional blood tinge. Workup in the ED including a chest CT angio which did not show any definite acute central pulmonary embolism, but technically limited due to suboptimal timing of contrast bolus. Overall, findings were consistent with disease progression. There was extensive soft tissue pleural metastatic deposits throughout bilateral lung henderson right greater than left. Extensive pleural metastatic disease in the left apex with involvement of the left first, second, and third ribs. Large right-sided pleural effusion and trace left-sided pleural effusion. Partially visualized upper abdomen demonstrating peritoneal carcinomatosis with large soft tissue implant in the left retroperitoneum measuring 6.4 x 4.1 cm. Bilateral hydronephrosis partially visualized. Enlarged retroperitoneal lymph node. Extensive osteolytic lesions throughout the visualized axial and appendicular skeleton compatible with osseous metastatic disease. CBC: WBC count 3.8, hemoglobin 9, platelets 134. CMP: Sodium 142, potassium 4, chloride 107, serum bicarb 21, BUN 40, creatinine 1.4, glucose 103. Lactic 1.2. Ionized calcium 5.4, magnesium 1.4, phosphorus 3.7. LFTs not elevated. Troponin 0.018. NT proBNP 1550. Viral screen negative for influenza, RSV, COVID. Patient currently being seen on the oncology floor. He is awake and alert, on 3 L/min nasal cannula, tachypneic in the mid 20s per minute. States he has been progressively more short of breath over the last month. States he uses 2 L supplemental oxygen hooked to his CPAP at bedtime. Denies chest pain, heart palpitations, lightheadedness or syncopal events, lower extremity edema. Does report occasional productive cough with brown mucus and occasional blood tinge. Denies any fevers, chills, chest pain, olivia hemoptysis. Denies known sick contacts. Appetite has been poor. Denies abdominal pain, nausea, vomiting, diarrhea, melena, hematochezia. Denies anticoagulant use. Denies history of previous thoracentesis. Patient was empirically covered on a combination of Zosyn and Levaquin in the ED. Current vital signs: Temperature 97.9 F, heart rate 100 bpm, blood pressure 145/66 mmHg, SpO2 recorded at 94% on 2 L/min nasal cannula. Patient was seen today on 12/07/2024, I had to move the patient earlier this morning to ICU as his right-sided pneumothorax showed some progression went from 10% to 30% overnight. Came into the ICU, and placed a Thora vent, 13 [place] in the right pleural space with complete resolution of his right-sided pneumothorax. And more bloody effusion was drained through the Thora vent shortly after the Thora vent was placed. Again there was complete resolution of his pneumothorax, and almost near complete resolution of his pleural effusion which was bloody all along. Patient is now on 4 L nasal cannula, in no distress, he is off heparin, and considering the bloody effusion, I will hold on anticoagulation therapy for now. Patient remains on amiodarone, bron chodilators/updrafts, he is also on Zosyn and Levaquin empirically. WBC count is 4.4 hemoglobin 8.5 electrolytes are normal BUN is 33 creatinine 1.74. The fluid I drained yesterday is clearly exudative with high LDH of 1400 and protein more than 3600 this is likely consistent with malignant pleural effusion most likely related to his multiple myeloma. Patient was seen today on 12/08/2024, remains in the ICU, continues to have Thora vent in place, patient had over 1200 cc of bloody effusion drained over the last 24 hours, and prior to this I have drained over 700 cc initially and the fluid was also bloody. This is most likely a pleural effusion related to multiple myeloma, cytology is pending. Patient remains empirically on antibiotics, however I went ahead and discontinued Levaquin on this patient, and I kept him on Zosyn as he seems to be developing some worsening of his renal status, patient is clinically dry dehydrated, and I am recommending increase of his IV fluid. Hemoglobin is 7.7 WBC count is 4.7 electrolytes are normal however creatinine went up to 1.92 from 1.74 yesterday, baseline on admission was 1.40. Patient remains off heparin mostly because of his bloody effusion, patient is on 3 L nasal cannula with O2 sats of 96%. Chest x-ray today was reviewed, I did not truly appreciate a pneumothorax on the chest x-ray today, and hardly any air leak is noted. Patient was seen today on 12/09/2024, remains in the ICU, continues to have Thora vent in place, and connected to Pleur-evac. No airleak is noted, minimal drainage overnight, less than 50 cc. No further air leak is noted, hence I went ahead and disconnected the Thora vent from Pleur-evac, and applied the one-way valve on the Thora vent. Patient is doing well, relatively asymptomatic, remains on IV fluid at 75 cc/h with slight improvement in his renal status, renal ultrasound showed no evidence of hydronephrosis. Patient remains on Zosyn, Eliquis is on hold, he is also on Seroquel. Chest x-ray will be repeated sometime later today to make sure the patient does not have any expansion of pneumothorax in the right lung. Continues to have some right lower lobe consolidation,, patient remains on antibiotics. The results on the pleural effusion are pending especially the cytology, the protein in the pleural effusion and the LDH suggest that it is malignant unless proven otherwise., It is definitely exudative. WBC count is 4.5 hemoglobin 7.4 electrolytes are normal BUN is 41 creatinine 1.75. Platelets are 1 27,000. Seen today on 12/10/2024, patient is now on medical floor, very comfortable, on 3 L nasal cannula, not in distress. Patient is hemodynamically stable blood pressure is 128/65, heart rate is 84, patient is afebrile. Temp is 97.6. Chest x-ray this morning was read by the ER physician as a left-sided pneumothorax which I reviewed myself, and I fully disagreed with the reading, this would have been a spontaneous left-sided pneumothorax, however follow-up chest x-ray was done and there was no evidence of pneumothorax on the left side. But both x- rays did reflect evidence of fluid overload and pulmonary edema with bilateral pleural effusions, has I recommended diuresing the patient further today. Yesterday he responded well to Lasix, and I am recommending another dose of Lasix 40 mg IV push to be given today. His Thora vent remains off suction, but he does have the one-way valve/occluding valve. And there is no evidence of pneumothorax on the right side. But again I believe the patient is building bilateral pleural effusions again. Cytology from his pleural effusion which I drained back on 12/07 is still pending I expect it to be related to multiple my eloma. Labs today showed relatively normal electrolytes BUN is 31 creatinine is up to 1.82 12/23/2024, the patient is still intubated on the mechanical ventilator. Awake and communicating. Slightly better and improvement in motor functions compared to yesterday. He remains on propofol running at 50 mcg/kg/min. He is off norepinephrine. Cardiac rhythm is back into sinus rhythm and the patient remains on amiodarone 0.5 mg/min. He is on assist-control mode at rate of 20, tidal volume of 550, FiO2 of 35% with a PEEP of 5. Blood gas showed a pH of 7.4 with a pCO2 of 32 and pO2 of 90. Started on vital HP at rate of 20 cc an hour. Urine output remains low. Undergoing hemodialysis and last session was yesterday. Dialysis catheter needs to be replaced as the catheter itself is functioning. Chest x-ray shows a right-sided pleural effusion and ongoing right lung consolidation. Ultrasound also showed the presence of a right-sided pleural effusion. Left lung remains essentially clear. The white cell count of 8.7, hemoglobin 7.9 and a platelet count of 64. Sodium is at 136, potassium is at 4.1, bicarb is at 18, BUN is 89 with a creatinine of 3.03. Glucose at 126. Patient was taken off sedation. Weaning parameters were done and the patient showed a rapid shallow breathing index of 77. The NIF was 18, FVC was 1.2 L, tidal volume was 413. Following that, the patient was given a pressure support of 5 and a PEEP of 5 and a subsequent blood gas showed a pH of 7.39 with a pCO2 of 33 and pO2 of 108. 12/24/2024, the patient remains extubated on 3 L of oxygen by nasal cannula. Awake and alert and communicating. He is profoundly weak. Adequate cough. Urine output in the order of 20 cc an hour. Underwent hemodialysis yesterday with a total of 1.5 L of ultrafiltration. Cardiac rhythm is sinus. Diarrhea has subsided. Remains on IV Zosyn. No other significant events overnight. Blood work shows white cell count of 8.8, hemoglobin of 7 and a platelet count of 50. Sodium is at 133, K is at 3.5, BUN is 56 with a creatinine of 2.3 4 Patient was seen today on 12/25/2024, remains in the ICU, patient was extubated on 12/23/24, tolerated extubation well. Patient remains in the ICU, he is on 3 L nasal cannula, patient is on IV fluid at 0.9 normal saline 10 cc/h. Patient remains on Velcade Cytoxan and Decadron, as per her hematology/oncology. Patient seems to be a bit confused, has I recommended your evaluation, apparently has been confused for the last few days, and I could not assess CODE STATUS with the patient himself. Supposed to have hemodialysis today, patient has received a total of 4 units of packed RBCs since admission, and considering may have to put a nasogastric tube in this patient with platelets are 50,000, may have to give him 2 units of platelets prior to nasogastric tube placement. Will have a swallow evaluation, if he fails the swallow evaluation, then he needs to have a nasogastric tube placed or have to use TPN. I prefer. Enteral feeding over TPN feeding. Labs today WBC count is 11.4 hemoglobin 7.4 electrolytes are normal BUN is 73 creatinine 2.65. Chest x-ray showed small to moderate right-sided pleural effusion and small left pleural effusion with some component of edema, not much of a change in the x-ray today compared to the day prior. Objective - Vital Signs Vital signs: Vital Signs Temp 97.8 F 12/25/24 12:00 Pulse 66 12/25/24 12:00 Resp 26 H 12/25/24 12:00 BP 111/61 12/25/24 12:00 Pulse Ox 98 12/25/24 12:00 FiO2 35 12/23/24 12:00 Intake & Output 12/24/24 12/25/24 12/25/24 18:59 06:59 18:59 Intake Total 276 276 138 Output Total 415 625 300 Balance -139 -349 -162 Weight 78.9 kg 78.9 kg Intake: IV 276 276 138 .9 KVO 240 240 120 0.9 pressure bag 36 36 18 Output: Urine 415 625 300 Other: Voiding Method Indwelling Catheter Indwelling Catheter # Bowel Movements 1 ABP, PAP, CO, CI - Last Documented Arterial Blood Pressure 113/31 - Exam GENERAL EXAM: Revealed 79-year-old white male in no distress, on 3 L nasal cannula continues to remain frail, chronically ill. HEAD: Normocephalic and atraumatic, EYES: Normal reaction of pupils, equal size. NOSE: Clear with pink turbinates. THROAT: No erythema or exudates. NECK: No masses, no JVD. CHEST: No chest wall deformity. Diminished breath sounds at the right base and left base no crackles rhonchi or wheezes LUNGS: Diminished breath sound bilaterally with crackles no rhonchi no wheezes CVS: S1 and S2 normal with no audible murmur, regular rhythm. No extra heart sounds ABDOMEN: No hepatosplenomegaly, active bowel sounds, no guarding or rigidity. SKIN: No rashes CENTRAL NERVOUS SYSTEM: Awake, however seems to be confused, answers yes and no not mentally intact. EXTREMITIES: No clubbing, trace of bipedal edema no cyanosis - Labs CBC & Chem 7: 12/25/24 04:30 12/25/24 04:30 Labs: Abnormal Lab Results - Last 24 Hours (Table) 12/24/24 12/24/24 12/25/24 Range/Units 17:24 19:51 00:41 WBC (3.8-10.6) k/uL RBC (4.30-5.90) m/uL Hgb (13.0-17.5) gm/dL Hct (39.0-53.0) % RDW (11.5-15.5) % Plt Count (150-450) k/uL Neutrophils # (1.3-7.7) k/uL Lymphocytes # (1.0-4.8) k/uL BUN (9-20) mg/dL Creatinine (0.66-1.25) mg/dL POC Glucose (mg/dL) 136 H 122 H 112 H (70-110) mg/dL Total Protein (6.3-8.2) g/dL Albumin (3.5-5.0) g/dL 12/25/24 12/25/24 Range/Units 04:30 04:30 WBC 11.4 H (3.8-10.6) k/uL RBC 2.32 L (4.30-5.90) m/uL Hgb 7.4 L (13.0-17.5) gm/dL Hct 22.7 L (39.0-53.0) % RDW 16.5 H (11.5-15.5) % Plt Count 51 L (150-450) k/uL Neutrophils # 10.6 H (1.3-7.7) k/uL Lymphocytes # 0.2 L (1.0-4.8) k/uL BUN 73 H (9-20) mg/dL Creatinine 2.65 H (0.66-1.25) mg/dL POC Glucose (mg/dL) (70-110) mg/dL Total Protein 5.3 L (6.3-8.2) g/dL Albumin 2.9 L (3.5-5.0) g/dL Assessment and Plan Assessment: Impression: Acute hypoxemic respiratory failure, multifactorial Status post right-sided thoracentesis with right-sided iatrogenic pneumothorax requiring Thora vent placement however this was removed after a few days without any residual effect. Large right-sided pleural effusion, most likely secondary to multiple myeloma, bloody effusion. Multiple myeloma, chest CT angio concerning for disease progression Atrial fibrillation with RVR, being addressed by cardiology Tumor lysis syndrome resolved Acute kidney injury, with bilateral hydronephrosis, on hemodialysis Hypercalcemia, ionized calcium 5.4 Chronic anemia Hypertension History of hyperlipidemia History of obstructive sleep apnea with CPAP Acute metabolic encephalopathy Recommendation: Continue to monitor in the ICU Nasogastric tube placement for enteral feeding May have to use platelets prior to placement of a nasogastric tube Continue chemotherapy as per oncology on the case Continue amiodarone Continue to avoid anticoagulation therapy Patient is now off Zon Neurology to see for mental status change/acute metabolic encephalopathy Overall prognosis remains extremely poor and guarded We will continue to follow not ready for discharge planning. Patient remains quite ill and has multiple complex medical issues as noted above. Again prognosis is poor. Will continue to follow Time with Patient: Less than 30
[2024-12-25 14:02] LABS: Appearance,Urine Cloudy (Clear); Bacteria,Urine Occasional /hpf; Bilirubin,Urine Negative (Negative); Blood,Urine Moderate (Negative); Color,Urine Light Yellow; Glucose,Urine (UA) Negative (Negative); Hyaline Casts,Urine 4 /lpf (0-2); Ketones,Urine Negative (Negative); Leukocyte Esterase,Urine Negative (Negative); Mucus,Urine Rare /hpf; Nitrite,Urine Negative (Negative); Protein,Urine Trace (Negative); RBC,Urine >182 /hpf (0-5); Specific Gravity,Urine 1.011 (1.001-1.035); Urobilinogen,Urine <2.0 mg/dL (<2.0); WBC,Urine 23 /hpf (0-5)
[2024-12-25 14:50] LABS: T4, Free (Free Thyroxine) 1.76 ng/dL (0.78-2.19)
--- NOTE | 2024-12-25 18:24 | P.PN ---
Subjective Progress Note Date: 12/25/24 patient is 79-year-old gentleman with past medical history significant for multiple myeloma, hypertension, hyperlipidemia presented to the ER because of abnormal labs. Patient normally sees Dr. Broderick and was on systemic treatment which apparently had stopped taking. Patient had blood work drawn outpatient and was told by the head operator to come to the ER. Patient states over the last couple of days he has been having increasing shortness of breath. Shortness of breath was present at rest as on exertion. Patient was complaining of being lethargic and weakness. Patient also complaining of productive cough with occasional episodes of hemoptysis. Denies any chest pain. There is no complaint of fever or chills. There is no complaint of orthopnea or PND. Patient denies any nausea, vomiting, pain. Patient denies any lightheaded or dizziness. Initial lab work done in the ER showed WBC 3.8, hemoglobin 9, platelet count 134 sodium 142, potassium 4, BUN 40, creatinine 1.40 glucose 103, lactate 1.2, calcium 10.5, magnesium 1.4 bilirubin 0.7, AST 27, ALT 11, troponin 0.018, proBNP 1550 Influenza A not detected Influenza B not detected RSV not detected COVID-19 not detected EKG done in the ER showed heart rate of , no ST segment elevation or depression seen, no T-wave inversions seen. Chest x-ray done in the ER showed patchy infiltrative opacity throughout the right lung with small to moderate size right pleural effusion. Questionable air-fluid level versus overlying skinfold is indeterminate for cavitary lesion or abscess. Recommend CT chest for further evaluation, consolidation in the left lung apex CT chest PE protocol done showed no definite acute PE within the vasculature, significant progression of metastatic disease with numerous pleural-based metastatic deposits and involvement of the left-sided ribs additionally there is peritoneal carcinomatosis in the partially visualized upper abdomen. Patient admitted to internal medicine service 12/07. Patient seen and examined. Status post right-sided thoracentesis with removal of 720 cc of fluid. Blood work done today showed WBC 4.9, hemoglobin 8.8, platelet count 138, sodium 143, potassium 4.1, BUN 33, creatinine 1.74, calcium 9.7 Patient had right-sided Thora vent placed this morning. Currently on 4 L of oxy gen. 12/08. Patient seen and examined. Vital signs done this morning showedTemp 98, heart rate 98, respirations 30, blood pressure 125/84, currently on 2 L of oxygen. Denies any shortness of breath at rest. Currently has a Thora vent in place. Chest x-ray done this morning shows right-sided pleural effusion, right- sided chest tube in place with residual pneumothorax. 12/09. Old male patient currently sleeping, he was agitated and restless overnight and he was prescribed Seroquel 25 mg which made him calm He still tachypneic with a breathing rate around 28, he is saturating high 90s on 3 L oxygen via nasal cannula Hemoglobin slightly trending down to 7.7 and creatinine up to 1.9 His proBNP is 1550 and procalcitonin negative at 0.16 Chest x-ray reviewed by myself showing right more than left infiltrate but looks better than 2 days ago Renal ultrasound showing no hydronephrosis finger right renal cyst He is currently kept on Zosyn. On home dose of Eliquis 2.5 mg. He had pneumothorax on the right side status post Thora vent, currently he has minimal discharge from his right Thora vent 12/10 Patient moved out of the ICU to select unit He is more awake today but still confused, he was trying to pull out his lines and Thora vent. He is mildly tachypneic with talking. He can tell he is in the hospital but also still mildly confused. Serevent was Today. Repeat chest x-ray showing mild improvement in the right pneumothorax, I reviewed the chest x-ray by myself. He remains on Zosyn and home dose of Eliquis 2.5 Will going to add small dose of Seroquel 12.5. 12/11 Patient more awake trying to talk Still feel short of breath although slightly better than yesterday, breathing r ate around 22 compared to 28 yesterday, his right upper chest Thora vent is in place and capped Repeat chest x-ray this morning showing right pleural effusion more than left with pulmonary vascular congestion suspicious for CHF. Currently patient off IV fluid He is on Zosyn and Eliquis 2.5 mg. 12/12 Patient in the morning was awake and alert but slightly agitated, he had a sitter at bedside. Thora vent was taken out after it was capped yesterday. His mentation was getting worse through the day and he became more tachypneic and tachycardic and he has to be placed on BiPAP. Repeat chest x-ray showing moderate to large right pleural effusion and evidence of CHF. Patient was moved to the ICU for more monitoring pH was 7.[address] production to 7.08 and pCO2 was elevated at 58 wor sened to 92. Creatinine also worsened up to 2.7 and sodium 146., With worsening breathing patient had to be intubated and placed on mechanical ventilation 12/13 Patient remains in the ICU intubated and sedated His breathing more quiet today. Abdomen soft Hemoglobin dropped to 7.0. Platelet count stable at 139, creatinine stable or slightly improved 2.7 down to 2.6. Patient placed on normal saline 75 mL/h. 12/14 Patient remains intubated and sedated He does not need pressors and Zosyn was discontinued He received some IV fluid Chest x-ray still showing pulmonary vascular congestion Pathology from pleural fluid came back positive for malignancy Sister and at bedside, oncology team discussing the case with them. Patient still at risk. 12/15 Patient remains intubated on mechanical ventilation in the ICU Family yesterday discussed the case with oncology team and patient remains full code and he was started on chemotherapy. Imodium can be stopped Chest x-ray showing persistent right-sided infiltrate most likely secondary to fluid and malignancy. Prognosis remains guarded and patient still high risk 12/16 Patient remains intubated and sedated Patient has no events overnight He was getting chemotherapy No IV fluid, no antibiotic chest tube feeding, he got 1 dose of 80 mg of Lasix yesterday He has good urine output of about 15 to 20 mL/h Also has low-grade temperature 100.2 yesterday and 9.9 today. Repeat chest x-ray showing CHF for right pleural effusion which is malignant p leural effusion Patient continue to get chemotherapy through tomorrow Patient has negative C. diff test 12/17 Patient still getting chemotherapy His creatinine gets worse and he has hemodialysis catheter placed in He remains intubated in the ICU on mechanical ventilation Breathing rate about 27 Creatinine worse at 5.0. Phosphorus 12.7. Glucose controlled. pH 7.23 12/18 Patient remains in the ICU intubated and sedated. Patient is today finished his chemotherapy per oncology team. Today he is not getting chemotherapy there is another cycle in order for chemotherapy on 12/21. However patient today developing worsening hypotension requiring Levophed and also started on sodium bicarb. Potassium and creatinine trending up, currently 5.6 with a plan for hemodialysis per plastic sewer. Hemoglobin 7.0. Leukocytosis is increased but pH is low at 7.1. Chest x-ray showing same malignant pleural effusion. Prognosis tomy guarded 12/19/2024 Patient is seen in follow-up today continues in the ICU with multiple consultations following maintained on mechanical ventilation. Kidney functions are worsening with nephrology following and vascular surgery was consulted and dialysis catheter was placed. Patient scheduled to undergo hemodialysis today. Patient continues on pressor support which is being weaned and overall prognosis remains significantly guarded. Hemoglobin is stable today and being given a unit of PRBC. Will follow-up on repeat labs and monitor closely. 12/20/2024 Patient is seen and evaluated in the ICU continues to be on mechanical ventilation FiO2 is 35% with a PEEP of 5. Patient is undergoing sedation holidays and currently not following commands. Patient is receiving hemodialysis and kidney functions are improving although BUN remains elevated. Patient will receive dialysis again. Patient is making urine. Patient does have fecal management system and recommend C. difficile although stool was noted to be black and loose. Prognosis is extremely guarded at this time. 12/21/2024 Patient is seen in follow-up continues on mechanical ventilation with an FiO2 of 35% and PEEP is 5. Patient undergoing sedation holidays and does open eyes and eye track although significantly weak unable to follow commands. Patient with indwelling Escobar catheter monitoring intake and output and urine appears cloudy, will send urine for evaluation. Hemoglobin 7.1 and will likely need a unit of blood. Patient continued on hemodialysis and will possibly plan for unit of blood with next session of dialysis. Patient is afebrile and maintained on Zo syn and will continue. Low-dose pressor support remains at this time and weaning as tolerated. 12/22/2024 Patient is seen in follow-up today remains critically ill although showing some improvements. Patient is maintained on mechanical ventilation and not ready for weaning with chest x-ray showing pleural effusion recurrence and chest ultrasound was done with discussion of possible thoracentesis. Hemoglobin low and will be given a unit of blood and will discuss with oncology regarding treatment plans. Patient is ongoing chemotherapy at this time and prognosis remains extremely guarded. Patient is maintained on low-dose pressor support, continued IV Zosyn, and amiodarone drip as patient was found to be in atrial fibrillation with RVR last night. Multiple consultations following. Patient is mildly sedated on low-dose propofol although is awake tracking and following commands, extremely weak although is attempting to lift upper extremities. Patient will require extensive physical therapy. 12/25/2024 Patient is seen in follow-up today remains in the ICU with multiple medical consultations following. Neurology has been consulted and pending at this time for assessment of mentation. Patient is off sedation has been extubated successfully is maintained on 2 to 3 L via nasal cannula. Patient continues with renal failure with nephrology following undergoing hemodialysis. Currently on hold today. Urine output is cloudy and is being closely monitored off antibiotic therapy at this time. Overall prognosis is extremely poor and guarded at this time. Patient awaiting swallow eval and will continue n.p.o. for now. Review of systems: Unable to obtain as patient is lethargic today. Active Medications Acetaminophen (Acetaminophen Tab 325 Mg Tab) 650 mg PO Q6HR PRN PRN Reason: Fever and/ or Pain Last Admin: 12/20/24 08:29 Dose: 650 mg Albuterol/Ipratropium (Ipratropium-Albuterol 3 Ml Neb) 3 ml INHALATION RT-Q4H [facility] Last Admin: 12/25/24 17:06 Dose: 3 ml Amiodarone HCl (Amiodarone 200 Mg Tab) 200 mg PO BID [facility] Last Admin: 12/25/24 11:45 Dose: Not Given Chlorhexidine Gluconate (Chlorhexidine Gluconate 15 Ml Cup) 15 ml MUCOUS MEM BID [facility] Last Admin: 12/25/24 09:48 Dose: 15 ml Dextrose/Water (Dextrose 50% Syringe 50 Ml) 25 ml IVP PER PROTOCOL PRN; Protocol PRN Reason: Hypoglycemia Dextrose/Water (Dextrose 50% Syringe 50 Ml) 50 ml IVP PER PROTOCOL PRN; Protocol PRN Reason: Hypoglycemia Famotidine (Famotidine 20 Mg/2 Ml Vial) 20 mg IVP Q7D [facility] Stop: 01/04/25 13:01 Last Admin: 12/21/24 15:15 Dose: 20 mg Furosemide (Furosemide 10 Mg/Ml 4 Ml Vial) 40 mg IV Q12HR [facility] Last Admin: 12/25/24 10:57 Dose: 40 mg Hydromorphone HCl (Hydromorphone 2 Mg/Ml 1 Ml Syringe) 1 mg IVP Q4HR PRN PRN Reason: Pain Ondansetron HCl 16 mg/ Sodium (Chloride) 58 mls @ 232 mls/hr IVPB Q7D [facility] Stop: 01/04/25 13:14 Last Admin: 12/21/24 12:30 Dose: 232 mls/hr Cyclophosphamide 300 mg/ (Sodium Chloride) 101.5 mls @ 203 mls/hr IV Q7D [facility] Stop: 01/04/25 17:29 Last Admin: 12/21/24 17:43 Dose: 203 mls/hr Insulin Human Lispro (Insulin Lispro (Humalog) 100 Unit/Ml 10 Ml Vl) 0 unit SQ Q6H [facility]; Protocol Last Admin: 12/25/24 13:03 Dose: Not Given Metoclopramide HCl (Metoclopramide 5 Mg/Ml 2 Ml Vial) 10 mg IVP Q6HR [facility] Last Admin: 12/25/24 12:32 Dose: Not Given Metoprolol Tartrate (Metoprolol Tartrate 25 Mg Tab) 25 mg PO DAILY [facility] Last Admin: 12/25/24 11:45 Dose: Not Given Miscellaneous Information (Pneumonia Protocol Utilized 1 Each Misc) 1 each PO ONCE PRN PRN Reason: Per Protocol Miscellaneous Information (Magnesium Replacement Protocol 1 Each Misc) 1 each MISCELLANE DAILY PRN; Protocol PRN Reason: Per Protocol Miscellaneous Information (Potassium Replacement Protocol 1 Each Misc) 1 each MISCELLANE DAILY PRN; Protocol PRN Reason: Per Protocol Naloxone HCl (Naloxone 0.4 Mg/Ml 1 Ml Vial) 0.2 mg IV Q2M PRN PRN Reason: Opioid Reversal Pantoprazole Sodium (Pantoprazole 40 Mg/10 Ml Vial) 40 mg IVP DAILY [facility] Last Admin: 12/25/24 09:48 Dose: 40 mg Physical exam: GENERAL: The patient is a 79-year-old male who is alert and oriented x 2, extremely lethargic, maintained on 3 L, well-developed, elderly appearing, ill- appearing HEENT: Pupils are round and equally reacting to light. EOMI. No scleral icterus. No conjunctival pallor. Normocephalic, atraumatic. No pharyngeal erythema. No thyromegaly. CARDIOVASCULAR: S1 and S2 muffled, irregular, A-fib on the monitor PULMONARY: Breath sounds diminished bilaterally and congested, no wheezing , faint crackles at the bases. Tachypneic, decreased breath sounds on the right side ABDOMEN: Soft, nontender, nondistended, normoactive bowel sounds. No palpable organomegaly. MUSCULOSKELETAL: No joint swelling or deformity. EXTREMITIES: No cyanosis, clubbing, or pedal edema. NEUROLOGICAL: Gross neurological examination did not reveal any focal deficits. Diffusely weak SKIN: No rashes. no petechiae. Assessment: Acute hypoxic respiratory failure requiring intubation and mechanical ventilation status post successful extubation on 12/23/2024, currently on 3 L via nasal cannula Malignant large pleural effusion status post thoracocentesis. On 12/13 has breathing that worsened because of CHF and large pleural effusion and patient had to be placed on mechanical ventilation. Pathology sample came back positive for malignant cells Change in mental status, metabolic encephalopathy, undergoing neurological workup Iatrogenic right pneumothorax status post Thora vent placement, which was removed on 12/13 Possible septic shock Acute kidney injury with worsening kidney functions, status post dialysis catheter placement and is now on hemodialysis as of 12/19/2024 Multiple myeloma, s/p chemotherapy 12/15-12/17 Hypercalcemia Chronic anemia Hypertension Hyperlipidemia Obstructive sleep apnea A-fib and RVR, currently on amiodarone drip 12/22/2024 GI prophylaxis DVT prophylaxis Full code Plan: Continue critical patient care in the ICU with multiple consultations following maintained on 2 to 3 L via nasal cannula and was successfully extubated on 12/23/2024 Patient is much more lethargic today and neurology has been consulted to assess mentation Patient underwent swallow eval and failed and may need NG tube or possible PICC line placement for TPN. Holding TPN for now. Patient is status post chemotherapy on 12/15-12/17. Oncology following Nephrology following as patient patient with worsening kidney functions requiring hemodialysis. Plan was for hemodialysis today although pending at this time Per patient's family, he would not want reintubation and CODE STATUS to be addressed as patient remains full code at this time due to multiple complex medical issues, overall prognosis is extremely poor and guarded at this time The impression and plan of care has been dictated by Mildred Goff, Nurse Practitioner as directed. Dr. Keith MD I have performed a history and examination and MDM of this patient, discussed the same with the dictator, and agree with the dictator's assessment and plan as written ,documented as a scribe. Based on total visit time, I have performed more than 50% of the visit. Objective - Vital Signs Vital signs: Vital Signs Temp 97.8 F 12/25/24 12:00 Pulse 66 12/25/24 12:00 Resp 26 H 12/25/24 12:00 BP 111/61 12/25/24 12:00 Pulse Ox 98 12/25/24 12:00 FiO2 35 12/23/24 12:00 Intake & Output 12/24/24 12/25/24 12/25/24 18:59 06:59 18:59 Intake Total 276 276 161 Output Total 415 625 425 Balance -139 -349 -264 Weight 78.9 kg 78.9 kg Intake: IV 276 276 161 .9 KVO 240 240 140 0.9 pressure bag 36 36 21 Output: Urine 415 625 425 Other: Voiding Method Indwelling Catheter Indwelling Catheter # Bowel Movements 1 ABP, PAP, CO, CI - Last Documented Arterial Blood Pressure 113/31 - Labs CBC & Chem 7: 12/25/24 04:30 12/25/24 04:30 Labs: Abnormal Lab Results - Last 24 Hours (Table) 12/24/24 12/24/24 12/25/24 Range/Units 17:24 19:51 00:41 WBC (3.8-10.6) k/uL RBC (4.30-5.90) m/uL Hgb (13.0-17.5) gm/dL Hct (39.0-53.0) % RDW (11.5-15.5) % Plt Count (150-450) k/uL Neutrophils # (1.3-7.7) k/uL Lymphocytes # (1.0-4.8) k/uL BUN (9-20) mg/dL Creatinine (0.66-1.25) mg/dL POC Glucose (mg/dL) 136 H 122 H 112 H (70-110) mg/dL Total Protein (6.3-8.2) g/dL Albumin (3.5-5.0) g/dL 12/25/24 12/25/24 Range/Units 04:30 04:30 WBC 11.4 H (3.8-10.6) k/uL RBC 2.32 L (4.30-5.90) m/uL Hgb 7.4 L (13.0-17.5) gm/dL Hct 22.7 L (39.0-53.0) % RDW 16.5 H (11.5-15.5) % Plt Count 51 L (150-450) k/uL Neutrophils # 10.6 H (1.3-7.7) k/uL Lymphocytes # 0.2 L (1.0-4.8) k/uL BUN 73 H (9-20) mg/dL Creatinine 2.65 H (0.66-1.25) mg/dL POC Glucose (mg/dL) (70-110) mg/dL Total Protein 5.3 L (6.3-8.2) g/dL Albumin 2.9 L (3.5-5.0) g/dL
--- NOTE | 2024-12-25 18:29 | P.PN ---
Subjective Progress Note Date: 12/25/24 Remains in ICU. Pt has been extubtaed. Pt is very lethargic. Nursing states pt was A&Ox2 this morning and was able to answer questions and nod his head. CT brain yesterday negative for acute porcesses. Wbc 11.4, hgb 7.4, plt 51,000. No rectal bleeding/melena. Blue was brown/yellowish last night. Objective - Vital Signs Vital signs: Vital Signs Temp 97.9 F 12/25/24 00:00 Pulse 62 12/25/24 10:00 Resp 15 12/25/24 10:00 BP 107/56 12/25/24 10:00 Pulse Ox 95 12/25/24 10:00 FiO2 35 12/23/24 12:00 Intake & Output 12/24/24 12/25/24 12/25/24 18:59 06:59 18:59 Intake Total 276 276 92 Output Total 415 625 195 Balance -139 -349 -103 Weight 78.9 kg Intake: IV 276 276 92 .9 KVO 240 240 80 0.9 pressure bag 36 36 12 Output: Urine 415 625 195 Other: Voiding Method Indwelling Catheter Indwelling Catheter # Bowel Movements 1 ABP, PAP, CO, CI - Last Documented Arterial Blood Pressure 123/27 - Constitutional General appearance: Present: no acute distress - Respiratory Details: breathing even and unlabored - Cardiovascular Details: skin warm and dry - Gastrointestinal General gastrointestinal: Present: soft. Absent: tenderness - Integumentary Integumentary: Absent: cyanotic - Neurologic Neurologic Comment(s): lethargic - Musculoskeletal Musculoskeletal: Present: generalized weakness - Labs CBC & Chem 7: 12/25/24 04:30 12/25/24 04:30 Labs: Abnormal Lab Results - Last 24 Hours (Table) 12/24/24 12/24/24 12/25/24 Range/Units 17:24 19:51 00:41 WBC (3.8-10.6) k/uL RBC (4.30-5.90) m/uL Hgb (13.0-17.5) gm/dL Hct (39.0-53.0) % RDW (11.5-15.5) % Plt Count (150-450) k/uL Neutrophils # (1.3-7.7) k/uL Lymphocytes # (1.0-4.8) k/uL BUN (9-20) mg/dL Creatinine (0.66-1.25) mg/dL POC Glucose (mg/dL) 136 H 122 H 112 H (70-110) mg/dL Total Protein (6.3-8.2) g/dL Albumin (3.5-5.0) g/dL 12/25/24 12/25/24 Range/Units 04:30 04:30 WBC 11.4 H (3.8-10.6) k/uL RBC 2.32 L (4.30-5.90) m/uL Hgb 7.4 L (13.0-17.5) gm/dL Hct 22.7 L (39.0-53.0) % RDW 16.5 H (11.5-15.5) % Plt Count 51 L (150-450) k/uL Neutrophils # 10.6 H (1.3-7.7) k/uL Lymphocytes # 0.2 L (1.0-4.8) k/uL BUN 73 H (9-20) mg/dL Creatinine 2.65 H (0.66-1.25) mg/dL POC Glucose (mg/dL) (70-110) mg/dL Total Protein 5.3 L (6.3-8.2) g/dL Albumin 2.9 L (3.5-5.0) g/dL - Imaging and Cardiology CT Scan - head: report reviewed Assessment and Plan (1) Hypercalcemia Current Visit: Yes Status: Acute Priority: High Code(s): E83.52 - HYPERCALCEMIA SNOMED Code(s): 21156072 (2) Winter light chain myeloma Current Visit: Yes Status: Acute Priority: High Code(s): C90.00 - MULTIPLE MYELOMA NOT HAVING ACHIEVED REMISSION SNOMED Code(s): 665303812 (3) New onset atrial fibrillation Current Visit: Yes Status: Acute Code(s): I48.91 - UNSPECIFIED ATRIAL FIBRILLATION SNOMED Code(s): 62140989 Plan: 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 -Completed 7 cycles of RVD in May 2024 achieving very good partial response with 99% reduction in kappa light chain -Had been on maintenance Revlimid 10 mg daily, which he stopped taking September 2024 for unclear reasons, he then developed progressive disease and symptoms of weakness, MICKEY, anemia, and thrombocytopenia -Admitted with failure to thrive with weakness, dehydration -CTA ruled out PE but reported pleural-based nodules with large right sided pleural effusion, peritoneal carcinomatosis, and retroperitoneal lymphadenopathy -720cc Right-sided thoracentesis performed, post procedure pneumo, thoravent placed. -Cytology positive for plasma cell myeloma --S/p IVIG for hypogammaglobulinemia -Urine kappa/lambda ratio elevated at 60.4, UPEP positive for monoclonal protein. Concern there is multi-organ involvement of his myeloma. Typically myeloma is rather chemo sensitive and can achieve a quick response. Also, pt responded very well to previous regimen. Discussed with family about initiating CyBorD inpatient to try to achieve disease control. They were agreeable to the same -The patient has received salvage treatment with 1 cycle of CyBOR- D. Second phase of treatment was administered on 12/22. Spoke with PharmD regarding dosing and HD. Cytoxan decreased by 50%, no dose adjustment recommended for Velcade, chemo to be given after HD. Subjective tolerance appears to be reasonable so far. It has been discussed with the patient and his family, that we do not typically see an immediate response -Hgb stable at 7.4. Plts 51,000. Continue to closely monitor CBC with transfusions as needed GI bleed: The patient did not a a drop in his hemoglobin, and subsequently had a significant amount of melena. This is felt to be likely due to upper GI blood loss with a primary differential being stress gastritis, as well as platelet dysfunction from his renal insufficiency. The patient is on Pepcid. S/p DDAVP. -Melena has since resolved. Hgb stable at 7.4. Assuming that the hemoglobin remains stable, this most likely would represent residual old blood. -Continue to closely monitor for s/s of bleeding and monitoring of hemoglobin. MICKEY: -Kidney function has been declining during admit -Uric acid elevated at 17.5. S/p 1 dose Elitek. Uric acid now normal -Appears to be multifactorial, r/t to ATN, multiple myeloma involvement, and possible component of TLS -HD had been started, kidney function improved -Plan today to try to treat with IV lasix and hold HD -Nephrology following
[2024-12-25 18:34] LABS: Glucose,Whole Blood 119 mg/dL (70-110)
[2024-12-25 23:38] LABS: Glucose,Whole Blood 119 mg/dL (70-110)
--- NOTE | 2024-12-26 00:38 | XR ---
EXAM: XR Chest, 1 View CLINICAL HISTORY: ITS.REASON XR Reason: NG tube placement TECHNIQUE: Frontal view of the chest. COMPARISON: Multiple prior CXR. FINDINGS: Lungs: See below. Pleural space: Trace LEFT and moderate RIGHT pleural effusions. Pulmonary vascular congestion, correlate for CHF. No pneumothorax. Heart: Unremarkable. No cardiomegaly. Mediastinum: Unremarkable. Bones/joints: Unremarkable. Tubes, lines and devices: Feeding tube terminates in the stomach. IMPRESSION: 1. Trace LEFT and moderate RIGHT pleural effusions. Pulmonary vascular congestion, correlate for CHF. 2. Feeding tube terminates in the stomach.
--- NOTE | 2024-12-26 00:54 | EEG ---
ELECTROENCEPHALOGRAM REPORT CLINICAL HISTORY: This is a 79-year-old gentleman with altered mental status. The video EEG is obtained to evaluate for seizure epileptiform activity. RELEVANT MEDICATIONS: The patient is not on any antiseizure medication. EEG TYPE: This is a routine 21-channel EEG with video using the 10/20 electrode placement system. DESCRIPTION: Wakefulness and drowsiness are obtained. The background consists of [id number] voltage of 5 to 5.5 hertz activity intermixed with delta activity. There was no physiological stage 2 sleep architecture. There is no focal slowing. There is mild to moderate diffuse myogenic artifact. Interictal and ictal is none. ACTIVATION PROCEDURE: Photic stimulation and hyperventilation are not performed. CLINICAL INTERPRETATION: This is an abnormal routine EEG. The background slowing is suggestive of moderate to severe encephalopathy. There is no focal slowing, epileptiform discharge, or seizure on the EEG. Clinical correlation is recommended. TAMMI / VERNON: [id number] /
[2024-12-26 05:18] LABS: HCT 22.3 % (39.6-50.0); HGB 7.5 g/dL (13.0-17.0); Lymphocytes # (A) 0.21 10*3/uL (0.90-5.00); MCH 33.3 pg (27.0-32.0); MCHC 33.6 g/dL (32.0-37.0); MCV 99.1 fL (80.0-97.0); Mean Platelet Volume 11.4 fL (9.5-12.2); Monocytes # (A) 0.58 10*3/uL (0.20-1.00); Monocytes % (A) 8.4 %; RBC 2.25 10*6/uL (4.40-5.60); RDW 16.2 % (11.5-14.5); WBC 6.93 10*3/uL (4.50-10.00)
[2024-12-26 05:33] LABS: Anion Gap 13 mmol/L; Blood Urea Nitrogen 87 mg/dL (9-20); Calcium 7.9 mg/dL (8.4-10.2); Carbon Dioxide 25 mmol/L (22-30); Chloride 103 mmol/L (98-107); Glucose 113 mg/dL (74-99); Magnesium 1.7 mg/dL (1.6-2.3); Potassium 3.6 mmol/L (3.5-5.1); Sodium 141 mmol/L (137-145)
[2024-12-26 05:38] LABS: African American GFR (CKD) 28 (>60 ml/min/1.73 sqM); Non-African American GFR(CKD) 24 (>60 ml/min/1.73 sqM)
[2024-12-26 05:53] LABS: Glucose,Whole Blood 122 mg/dL (70-110)
[2024-12-26] MEDS: POTASSIUM BICARBONATE/CIT AC 20 MEQ TABLET.EFF NG-TUBE SCH ×2 (06:05→20:07)
[2024-12-26] MEDS: MAGNESIUM SULFATE-D5W PMX 1 GM in DEXTROSE/WATER 1 100ML.BAG IVPB ONE (06:06)
[2024-12-26 06:07] LABS: Platelet Count 85 10*3/uL (140-440)
[2024-12-26 08:06] LABS: Poikilocytosis (M) Present
[2024-12-26] MEDS: METOPROLOL TARTRATE 12.5 MG TAB PO SCH (09:13)
--- NOTE | 2024-12-26 09:37 | P.PN ---
Subjective Patient is seen in follow-up for acute kidney injury. Remains off vasopressors. Extubated December 23, 2024. On IV Lasix. Nonoliguric. Receiving tube feeds. Failed swallow eval. Last hemodialysis December 23, 2024. Started on dialysis December 19, 2024. Vital signs are stable. General: No resting in bed. HEENT: On nasal cannula. NG tube noted. LUNGS: No audible rhonchi or wheezes. HEART: Rate and Rhythm are regular. ABDOMEN: Nontender. EXTREMITITES: 1+ edema. Objective - Vital Signs Vital signs: Vital Signs Temp 97.8 F 12/26/24 04:00 Pulse 70 12/26/24 08:42 Resp 26 H 12/26/24 07:00 BP 133/69 12/26/24 07:00 Pulse Ox 95 12/26/24 07:00 FiO2 35 12/23/24 12:00 Intake & Output 12/25/24 12/26/24 12/26/24 18:59 06:59 18:59 Intake Total 511 794 146 Output Total 835 1115 475 Balance -324 -321 -329 Weight 78.9 kg 76.7 kg Intake: IV 166 246 16 .9 KVO 130 110 10 0.9 pressure bag 36 36 6 Magnesium Sulfate-D5w Pmx 100 1 gm In Dextrose/Water 1 100ml.bag @ 100 mls/hr IVPB ONCE ONE Rx#: [id number] Tube Feeding 180 100 Blood Product 345 338 Platelet Pheresis Pas 345 338 Psoralen Unit [id number] Other 30 30 Output: Urine 835 1115 475 Other: Voiding Method Indwelling Catheter Indwelling Catheter ABP, PAP, CO, CI - Last Documented Arterial Blood Pressure 149/56 - Labs CBC & Chem 7: 12/26/24 05:07 12/26/24 05:07 Labs: Abnormal Lab Results - Last 24 Hours (Table) 12/25/24 12/25/24 12/25/24 Range/Units 10:24 13:22 18:33 RBC (4.40-5.60) 10*6/uL Hgb (13.0-17.0) g/dL Hct (39.6-50.0) % MCV (80.0-97.0) fL MCH (27.0-32.0) pg Plt Count (140-440) 10*3/uL Lymphocytes # (0.90-5.00) 10*3/uL Eosinophils # (0.04-0.35) 10*3/uL BUN (9-20) mg/dL Creatinine (0.66-1.25) mg/dL Glucose (74-99) mg/dL POC Glucose (mg/dL) 119 H (70-110) mg/dL Calcium (8.4-10.2) mg/dL Vitamin B12 1155.0 H (200.0-944.0) pg/mL TSH 0.405 L (0.465-4.680) mIU/L Urine Protein Trace H (Negative) Urine Blood Moderate H (Negative) Urine RBC >182 H (0-5) /hpf Urine WBC 23 H (0-5) /hpf Urine Bacteria Occasional H (None) /hpf Hyaline Casts 4 H (0-2) /lpf Urine Mucus Rare H (None) /hpf 12/25/24 12/26/24 12/26/24 Range/Units 23:37 05:07 05:07 RBC 2.25 L (4.40-5.60) 10*6/uL Hgb 7.5 L (13.0-17.0) g/dL Hct 22.3 L (39.6-50.0) % MCV 99.1 H (80.0-97.0) fL MCH 33.3 H (27.0-32.0) pg Plt Count 85 L (140-440) 10*3/uL Lymphocytes # 0.21 L (0.90-5.00) 10*3/uL Eosinophils # 0.00 L (0.04-0.35) 10*3/uL BUN 87 H (9-20) mg/dL Creatinine 2.43 H (0.66-1.25) mg/dL Glucose 113 H (74-99) mg/dL POC Glucose (mg/dL) 119 H (70-110) mg/dL Calcium 7.9 L (8.4-10.2) mg/dL Vitamin B12 (200.0-944.0) pg/mL TSH (0.465-4.680) mIU/L Urine Protein (Negative) Urine Blood (Negative) Urine RBC (0-5) /hpf Urine WBC (0-5) /hpf Urine Bacteria (None) /hpf Hyaline Casts (0-2) /lpf Urine Mucus (None) /hpf 12/26/24 Range/Units 05:52 RBC (4.40-5.60) 10*6/uL Hgb (13.0-17.0) g/dL Hct (39.6-50.0) % MCV (80.0-97.0) fL MCH (27.0-32.0) pg Plt Count (140-440) 10*3/uL Lymphocytes # (0.90-5.00) 10*3/uL Eosinophils # (0.04-0.35) 10*3/uL BUN (9-20) mg/dL Creatinine (0.66-1.25) mg/dL Glucose (74-99) mg/dL POC Glucose (mg/dL) 122 H (70-110) mg/dL Calcium (8.4-10.2) mg/dL Vitamin B12 (200.0-944.0) pg/mL TSH (0.465-4.680) mIU/L Urine Protein (Negative) Urine Blood (Negative) Urine RBC (0-5) /hpf Urine WBC (0-5) /hpf Urine Bacteria (None) /hpf Hyaline Casts (0-2) /lpf Urine Mucus (None) /hpf Assessment and Plan Plan: Assessment: 1. Acute kidney injury secondary to ATN. No hydronephrosis noted on imaging. UA fairly benign. Started on hemodialysis December 19, 2024. Femoral catheter was exchanged December 23, 2024. Last dialysis treatment was December 23, 2024. Now nonoliguric. Creatinine 2.43 today. Creatinine in July 2024 was 0.8. 2. Hypernatremia from lack of oral water intake. Status post D5W. Resolved. 3. Volume overload with pleural effusions. Improved with ultrafiltration and diuresis. 4. Multiple myeloma. On chemotherapy. 5. Hypercalcemia secondary to volume contraction as well as multiple myeloma. Improved. 6. Pneumonia s/p antibiotics. 7. Anemia. Due to underlying multiple myeloma. Status post IV iron. Has received blood transfusions this admission. 8. Metabolic acidosis secondary to acute kidney injury. Improved. Plan: Hold off on hemodialysis. Maintain IV Lasix. Potassium replaced. Receiving tube feeds. Failed swallow eval. Continue to monitor renal function and urine output. Prognosis guarded.
--- NOTE | 2024-12-26 11:59 | P.PN ---
Subjective Progress Note Date: 12/26/24 Principal diagnosis: Acute hypoxic respiratory failure with large right-sided pleural effusion, multiple myeloma, Patient is a 79-year-old male with past medical history significant for hypertension, hyperlipidemia, KYM, multiple myeloma. His PCP is Dr. Jaimes. Also, follows with his oncologist Dr. Broderick. Patient had a bone marrow biopsy back on 11/11/2023 which was positive for multiple myeloma. Previously on systemic treatment, which he had stopped, apparently confused on whether he should continue the medication. Patient sent in by his oncologist yesterday for abnormal labs. On arrival, complaining of increased work of breathing over the last month. Occasional cough with mucus and occasional blood tinge. Workup in the ED including a chest CT angio which did not show any definite acute central pulmonary embolism, but technically limited due to suboptimal timing of contrast bolus. Overall, findings were consistent with disease progression. There was extensive soft tissue pleural metastatic deposits throughout bilateral lung henderson right greater than left. Extensive pleural metastatic disease in the left apex with involvement of the left first, second, and third ribs. Large right-sided pleural effusion and trace left-sided pleural effusion. Partially visualized upper abdomen demonstrating peritoneal carcinomatosis with large soft tissue implant in the left retroperitoneum measuring 6.4 x 4.1 cm. Bilateral hydronephrosis partially visualized. Enlarged retroperitoneal lymph node. Extensive osteolytic lesions throughout the visualized axial and appendicular skeleton compatible with osseous metastatic disease. CBC: WBC count 3.8, hemoglobin 9, platelets 134. CMP: Sodium 142, potassium 4, chloride 107, serum bicarb 21, BUN 40, creatinine 1.4, glucose 103. Lactic 1.2. Ionized calcium 5.4, magnesium 1.4, phosphorus 3.7. LFTs not elevated. Troponin 0.018. NT proBNP 1550. Viral screen negative for influenza, RSV, COVID. Patient currently being seen on the oncology floor. He is awake and alert, on 3 L/min nasal cannula, tachypneic in the mid 20s per minute. States he has been progressively more short of breath over the last month. States he uses 2 L supplemental oxygen hooked to his CPAP at bedtime. Denies chest pain, heart palpitations, lightheadedness or syncopal events, lower extremity edema. Does report occasional productive cough with brown mucus and occasional blood tinge. Denies any fevers, chills, chest pain, olivia hemoptysis. Denies known sick contacts. Appetite has been poor. Denies abdominal pain, nausea, vomiting, diarrhea, melena, hematochezia. Denies anticoagulant use. Denies history of previous thoracentesis. Patient was empirically covered on a combination of Zosyn and Levaquin in the ED. Current vital signs: Temperature 97.9 F, heart rate 100 bpm, blood pressure 145/66 mmHg, SpO2 recorded at 94% on 2 L/min nasal cannula. Patient was seen today on 12/07/2024, I had to move the patient earlier this morning to ICU as his right-sided pneumothorax showed some progression went from 10% to 30% overnight. Came into the ICU, and placed a Thora vent, 13 Setswana in the right pleural space with complete resolution of his right-sided pneumothorax. And more bloody effusion was drained through the Thora vent shortly after the Thora vent was placed. Again there was complete resolution of his pneumothorax, and almost near complete resolution of his pleural effusion which was bloody all along. Patient is now on 4 L nasal cannula, in no distress, he is off heparin, and considering the bloody effusion, I will hold on anticoagulation therapy for now. Patient remains on amiodarone, bron chodilators/updrafts, he is also on Zosyn and Levaquin empirically. WBC count is 4.4 hemoglobin 8.5 electrolytes are normal BUN is 33 creatinine 1.74. The fluid I drained yesterday is clearly exudative with high LDH of 1400 and protein more than 3600 this is likely consistent with malignant pleural effusion most likely related to his multiple myeloma. Patient was seen today on 12/08/2024, remains in the ICU, continues to have Thora vent in place, patient had over 1200 cc of bloody effusion drained over the last 24 hours, and prior to this I have drained over 700 cc initially and the fluid was also bloody. This is most likely a pleural effusion related to multiple myeloma, cytology is pending. Patient remains empirically on antibiotics, however I went ahead and discontinued Levaquin on this patient, and I kept him on Zosyn as he seems to be developing some worsening of his renal status, patient is clinically dry dehydrated, and I am recommending increase of his IV fluid. Hemoglobin is 7.7 WBC count is 4.7 electrolytes are normal however creatinine went up to 1.92 from 1.74 yesterday, baseline on admission was 1.40. Patient remains off heparin mostly because of his bloody effusion, patient is on 3 L nasal cannula with O2 sats of 96%. Chest x-ray today was reviewed, I did not truly appreciate a pneumothorax on the chest x-ray today, and hardly any air leak is noted. Patient was seen today on 12/09/2024, remains in the ICU, continues to have Thora vent in place, and connected to Pleur-evac. No airleak is noted, minimal drainage overnight, less than 50 cc. No further air leak is noted, hence I went ahead and disconnected the Thora vent from Pleur-evac, and applied the one-way valve on the Thora vent. Patient is doing well, relatively asymptomatic, remains on IV fluid at 75 cc/h with slight improvement in his renal status, renal ultrasound showed no evidence of hydronephrosis. Patient remains on Zosyn, Eliquis is on hold, he is also on Seroquel. Chest x-ray will be repeated sometime later today to make sure the patient does not have any expansion of pneumothorax in the right lung. Continues to have some right lower lobe consolidation,, patient remains on antibiotics. The results on the pleural effusion are pending especially the cytology, the protein in the pleural effusion and the LDH suggest that it is malignant unless proven otherwise., It is definitely exudative. WBC count is 4.5 hemoglobin 7.4 electrolytes are normal BUN is 41 creatinine 1.75. Platelets are 1 27,000. Seen today on 12/10/2024, patient is now on medical floor, very comfortable, on 3 L nasal cannula, not in distress. Patient is hemodynamically stable blood pressure is 128/65, heart rate is 84, patient is afebrile. Temp is 97.6. Chest x-ray this morning was read by the ER physician as a left-sided pneumothorax which I reviewed myself, and I fully disagreed with the reading, this would have been a spontaneous left-sided pneumothorax, however follow-up chest x-ray was done and there was no evidence of pneumothorax on the left side. But both x- rays did reflect evidence of fluid overload and pulmonary edema with bilateral pleural effusions, has I recommended diuresing the patient further today. Yesterday he responded well to Lasix, and I am recommending another dose of Lasix 40 mg IV push to be given today. His Thora vent remains off suction, but he does have the one-way valve/occluding valve. And there is no evidence of pneumothorax on the right side. But again I believe the patient is building bilateral pleural effusions again. Cytology from his pleural effusion which I drained back on 12/07 is still pending I expect it to be related to multiple my eloma. Labs today showed relatively normal electrolytes BUN is 31 creatinine is up to 1.82 12/23/2024, the patient is still intubated on the mechanical ventilator. Awake and communicating. Slightly better and improvement in motor functions compared to yesterday. He remains on propofol running at 50 mcg/kg/min. He is off norepinephrine. Cardiac rhythm is back into sinus rhythm and the patient remains on amiodarone 0.5 mg/min. He is on assist-control mode at rate of 20, tidal volume of 550, FiO2 of 35% with a PEEP of 5. Blood gas showed a pH of 7.4 with a pCO2 of 32 and pO2 of 90. Started on vital HP at rate of 20 cc an hour. Urine output remains low. Undergoing hemodialysis and last session was yesterday. Dialysis catheter needs to be replaced as the catheter itself is functioning. Chest x-ray shows a right-sided pleural effusion and ongoing right lung consolidation. Ultrasound also showed the presence of a right-sided pleural effusion. Left lung remains essentially clear. The white cell count of 8.7, hemoglobin 7.9 and a platelet count of 64. Sodium is at 136, potassium is at 4.1, bicarb is at 18, BUN is 89 with a creatinine of 3.03. Glucose at 126. Patient was taken off sedation. Weaning parameters were done and the patient showed a rapid shallow breathing index of 77. The NIF was 18, FVC was 1.2 L, tidal volume was 413. Following that, the patient was given a pressure support of 5 and a PEEP of 5 and a subsequent blood gas showed a pH of 7.39 with a pCO2 of 33 and pO2 of 108. 12/24/2024, the patient remains extubated on 3 L of oxygen by nasal cannula. Awake and alert and communicating. He is profoundly weak. Adequate cough. Urine output in the order of 20 cc an hour. Underwent hemodialysis yesterday with a total of 1.5 L of ultrafiltration. Cardiac rhythm is sinus. Diarrhea has subsided. Remains on IV Zosyn. No other significant events overnight. Blood work shows white cell count of 8.8, hemoglobin of 7 and a platelet count of 50. Sodium is at 133, K is at 3.5, BUN is 56 with a creatinine of 2.3 4 Patient was seen today on 12/25/2024, remains in the ICU, patient was extubated on 12/23/24, tolerated extubation well. Patient remains in the ICU, he is on 3 L nasal cannula, patient is on IV fluid at 0.9 normal saline 10 cc/h. Patient remains on Velcade Cytoxan and Decadron, as per her hematology/oncology. Patient seems to be a bit confused, has I recommended your evaluation, apparently has been confused for the last few days, and I could not assess CODE STATUS with the patient himself. Supposed to have hemodialysis today, patient has received a total of 4 units of packed RBCs since admission, and considering may have to put a nasogastric tube in this patient with platelets are 50,000, may have to give him 2 units of platelets prior to nasogastric tube placement. Will have a swallow evaluation, if he fails the swallow evaluation, then he needs to have a nasogastric tube placed or have to use TPN. I prefer. Enteral feeding over TPN feeding. Labs today WBC count is 11.4 hemoglobin 7.4 electrolytes are normal BUN is 73 creatinine 2.65. Chest x-ray showed small to moderate right-sided pleural effusion and small left pleural effusion with some component of edema, not much of a change in the x-ray today compared to the day prior. Patient was seen today on12/26/24, remains in the ICU, basically about the same, mentation seems to be a little bit better compared to yesterday. Patient seems to be a bit more oriented, on 2 L nasal cannula, he had a nasogastric tube placed yesterday, and he is receiving enteral feeding. Patient still did not pass his swallow evaluation and he is to have another repeat swallow evaluation study tomorrow. He is on vital AF at 40 cc/h. Patient is being fed via nasogastric tube. Chest x-ray continues to show right-sided pleural effusion WBC count is 6.9 hemoglobin 7.5 platelets today are 85,000. Electrolytes are normal BUN is 87 creatinine 2.43. Patient is on Lasix, did not require hemodialysis yesterday. Objective - Vital Signs Vital signs: Vital Signs Temp 97.9 F 12/26/24 08:00 Pulse 64 12/26/24 10:00 Resp 19 12/26/24 09:00 BP 128/67 12/26/24 10:00 Pulse Ox 95 12/26/24 09:00 FiO2 35 12/23/24 12:00 Intake & Output 12/25/24 12/26/24 12/26/24 18:59 06:59 18:59 Intake Total 511 794 152 Output Total 835 1115 680 Balance -324 -321 -528 Weight 78.9 kg 76.7 kg Intake: IV 166 246 22 .9 KVO 130 110 10 0.9 pressure bag 36 36 12 Magnesium Sulfate-D5w Pmx 100 1 gm In Dextrose/Water 1 100ml.bag @ 100 mls/hr IVPB ONCE ONE Rx#: [id number] Tube Feeding 180 100 Blood Product 345 338 Platelet Pheresis Pas 345 338 Psoralen Unit [id number] Other 30 30 Output: Urine 835 1115 680 Other: Voiding Method Indwelling Catheter Indwelling Catheter ABP, PAP, CO, CI - Last Documented Arterial Blood Pressure 155/81 - Exam GENERAL EXAM: Revealed 79-year-old white male in no distress, on 2 L nasal cannula looks frail and chronically ill HEAD: Normocephalic and atraumatic, EYES: Normal reaction of pupils, equal size. NOSE: Clear with pink turbinates. Nasogastric tube in place in the left nares THROAT: No erythema or exudates. NECK: No masses, no JVD. CHEST: No chest wall deformity. Diminished breath sounds at the right base otherwise unremarkable LUNGS: Diminished breath sound bilaterally with crackles no rhonchi no wheezes CVS: S1 and S2 normal with no audible murmur, regular rhythm. No extra heart sounds ABDOMEN: No hepatosplenomegaly, active bowel sounds, no guarding or rigidity. SKIN: No rashes CENTRAL NERVOUS SYSTEM: Awake, bit more oriented today compared to yesterday slight improvement in mental status otherwise no focal deficit. EXTREMITIES: No clubbing, trace of bipedal edema no cyanosis - Labs CBC & Chem 7: 12/26/24 05:07 12/26/24 05:07 Labs: Abnormal Lab Results - Last 24 Hours (Table) 12/25/24 12/25/24 12/25/24 Range/Units 10:24 13:22 18:33 RBC (4.40-5.60) 10*6/uL Hgb (13.0-17.0) g/dL Hct (39.6-50.0) % MCV (80.0-97.0) fL MCH (27.0-32.0) pg Plt Count (140-440) 10*3/uL Lymphocytes # (0.90-5.00) 10*3/uL Eosinophils # (0.04-0.35) 10*3/uL BUN (9-20) mg/dL Creatinine (0.66-1.25) mg/dL Glucose (74-99) mg/dL POC Glucose (mg/dL) 119 H (70-110) mg/dL Calcium (8.4-10.2) mg/dL Vitamin B12 1155.0 H (200.0-944.0) pg/mL TSH 0.405 L (0.465-4.680) mIU/L Urine Protein Trace H (Negative) Urine Blood Moderate H (Negative) Urine RBC >182 H (0-5) /hpf Urine WBC 23 H (0-5) /hpf Urine Bacteria Occasional H (None) /hpf Hyaline Casts 4 H (0-2) /lpf Urine Mucus Rare H (None) /hpf 12/25/24 12/26/24 12/26/24 Range/Units 23:37 05:07 05:07 RBC 2.25 L (4.40-5.60) 10*6/uL Hgb 7.5 L (13.0-17.0) g/dL Hct 22.3 L (39.6-50.0) % MCV 99.1 H (80.0-97.0) fL MCH 33.3 H (27.0-32.0) pg Plt Count 85 L (140-440) 10*3/uL Lymphocytes # 0.21 L (0.90-5.00) 10*3/uL Eosinophils # 0.00 L (0.04-0.35) 10*3/uL BUN 87 H (9-20) mg/dL Creatinine 2.43 H (0.66-1.25) mg/dL Glucose 113 H (74-99) mg/dL POC Glucose (mg/dL) 119 H (70-110) mg/dL Calcium 7.9 L (8.4-10.2) mg/dL Vitamin B12 (200.0-944.0) pg/mL TSH (0.465-4.680) mIU/L Urine Protein (Negative) Urine Blood (Negative) Urine RBC (0-5) /hpf Urine WBC (0-5) /hpf Urine Bacteria (None) /hpf Hyaline Casts (0-2) /lpf Urine Mucus (None) /hpf 12/26/24 Range/Units 05:52 RBC (4.40-5.60) 10*6/uL Hgb (13.0-17.0) g/dL Hct (39.6-50.0) % MCV (80.0-97.0) fL MCH (27.0-32.0) pg Plt Count (140-440) 10*3/uL Lymphocytes # (0.90-5.00) 10*3/uL Eosinophils # (0.04-0.35) 10*3/uL BUN (9-20) mg/dL Creatinine (0.66-1.25) mg/dL Glucose (74-99) mg/dL POC Glucose (mg/dL) 122 H (70-110) mg/dL Calcium (8.4-10.2) mg/dL Vitamin B12 (200.0-944.0) pg/mL TSH (0.465-4.680) mIU/L Urine Protein (Negative) Urine Blood (Negative) Urine RBC (0-5) /hpf Urine WBC (0-5) /hpf Urine Bacteria (None) /hpf Hyaline Casts (0-2) /lpf Urine Mucus (None) /hpf Assessment and Plan Assessment: Impression: Acute hypoxemic respiratory failure, multifactorial Status post right-sided thoracentesis with right-sided iatrogenic pneumothorax requiring Thora vent placement however this was removed after a few days without any residual effect. Large right-sided pleural effusion, most likely secondary to multiple myeloma, bloody effusion. Multiple myeloma, chest CT angio concerning for disease progression Atrial fibrillation with RVR, being addressed by cardiology Tumor lysis syndrome resolved Acute kidney injury, with bilateral hydronephrosis, on hemodialysis Hypercalcemia, ionized calcium 5.4 Chronic anemia Hypertension History of hyperlipidemia History of obstructive sleep apnea with CPAP Acute metabolic encephalopathy Recommendation: Transfer patient out of the ICU to a monitored bed and selective Continue enteral feeding via nasogastric tube, continue n.p.o. Continue chemotherapy as per oncology on the case Continue amiodarone Continue to hold anticoagulation treatment Mental status is improving however not good enough to be able to discuss CODE STATUS with the patient directly as he is not fully intact Overall prognosis remains extremely poor and guarded We will transfer the patient out of the ICU to a monitored bed and selective, again prognosis is guarded and the patient continues to have multiple complex issues as noted above Will continue to follow Time with Patient: Less than 30
[2024-12-26 12:27] LABS: Glucose,Whole Blood 113 mg/dL (70-110)
--- NOTE | 2024-12-26 13:18 | P.PN ---
Subjective Progress Note Date: 12/26/24 I am following-up with patient and per therapy team he is doing better today and more responsive. Objective - Vital Signs Vital signs: Vital Signs Temp 97.5 F L 12/26/24 12:00 Pulse 64 12/26/24 12:07 Resp 16 12/26/24 12:00 BP 137/125 12/26/24 12:00 Pulse Ox 98 12/26/24 12:00 FiO2 35 12/23/24 12:00 Intake & Output 12/25/24 12/26/24 12/26/24 18:59 06:59 18:59 Intake Total 511 794 158 Output Total 835 1115 680 Balance -324 -321 -522 Weight 78.9 kg 76.7 kg Intake: IV 166 246 28 .9 KVO 130 110 10 0.9 pressure bag 36 36 18 Magnesium Sulfate-D5w Pmx 100 1 gm In Dextrose/Water 1 100ml.bag @ 100 mls/hr IVPB ONCE ONE Rx#: [id number] Tube Feeding 180 100 Blood Product 345 338 Platelet Pheresis Pas 345 338 Psoralen Unit [id number] Other 30 30 Output: Urine 835 1115 680 Other: Voiding Method Indwelling Catheter Indwelling Catheter ABP, PAP, CO, CI - Last Documented Arterial Blood Pressure 134/47 - Exam General: Sitting up in chair and is not in acute distress. HENT: Has NG tube. Neuro: Is more awake today and more responsive. He is oriented to self and correctly states he is in the hospital with options. Is following simple commands. No facial weakness. Motor: Lifting bilateral uppers above gravity and appears equal. Some of the workup during this hospital visit consisted of: During this hospital visit patient had worsening of the anemia and it was as low as 5.9 currently 7.4. Patient has acute kidney injury and received hemodialysis currently the creatinine is trending down B12: 1155 Folate: 5.20 TSH: 0.405 and free T4 1.76 Ammonia <9 I reviewed the rest of the lab workup. CT of the head is reported as no acute intracranial process. I personally reviewed the CT and agree with the report Routine EEG: Is abnormal. The background slowing is suggestive of moderate to severe encephalopathy. There is no focal slowing, epileptiform discharge or seizure. - Labs CBC & Chem 7: 12/26/24 05:07 12/26/24 05:07 Labs: Abnormal Lab Results - Last 24 Hours (Table) 12/25/24 12/25/24 12/25/24 Range/Units 10:24 13:22 18:33 RBC (4.40-5.60) 10*6/uL Hgb (13.0-17.0) g/dL Hct (39.6-50.0) % MCV (80.0-97.0) fL MCH (27.0-32.0) pg Plt Count (140-440) 10*3/uL Lymphocytes # (0.90-5.00) 10*3/uL Eosinophils # (0.04-0.35) 10*3/uL BUN (9-20) mg/dL Creatinine (0.66-1.25) mg/dL Glucose (74-99) mg/dL POC Glucose (mg/dL) 119 H (70-110) mg/dL Calcium (8.4-10.2) mg/dL Vitamin B12 1155.0 H (200.0-944.0) pg/mL TSH 0.405 L (0.465-4.680) mIU/L Urine Protein Trace H (Negative) Urine Blood Moderate H (Negative) Urine RBC >182 H (0-5) /hpf Urine WBC 23 H (0-5) /hpf Urine Bacteria Occasional H (None) /hpf Hyaline Casts 4 H (0-2) /lpf Urine Mucus Rare H (None) /hpf 12/25/24 12/26/24 12/26/24 Range/Units 23:37 05:07 05:07 RBC 2.25 L (4.40-5.60) 10*6/uL Hgb 7.5 L (13.0-17.0) g/dL Hct 22.3 L (39.6-50.0) % MCV 99.1 H (80.0-97.0) fL MCH 33.3 H (27.0-32.0) pg Plt Count 85 L (140-440) 10*3/uL Lymphocytes # 0.21 L (0.90-5.00) 10*3/uL Eosinophils # 0.00 L (0.04-0.35) 10*3/uL BUN 87 H (9-20) mg/dL Creatinine 2.43 H (0.66-1.25) mg/dL Glucose 113 H (74-99) mg/dL POC Glucose (mg/dL) 119 H (70-110) mg/dL Calcium 7.9 L (8.4-10.2) mg/dL Vitamin B12 (200.0-944.0) pg/mL TSH (0.465-4.680) mIU/L Urine Protein (Negative) Urine Blood (Negative) Urine RBC (0-5) /hpf Urine WBC (0-5) /hpf Urine Bacteria (None) /hpf Hyaline Casts (0-2) /lpf Urine Mucus (None) /hpf 12/26/24 12/26/24 Range/Units 05:52 12:26 RBC (4.40-5.60) 10*6/uL Hgb (13.0-17.0) g/dL Hct (39.6-50.0) % MCV (80.0-97.0) fL MCH (27.0-32.0) pg Plt Count (140-440) 10*3/uL Lymphocytes # (0.90-5.00) 10*3/uL Eosinophils # (0.04-0.35) 10*3/uL BUN (9-20) mg/dL Creatinine (0.66-1.25) mg/dL Glucose (74-99) mg/dL POC Glucose (mg/dL) 122 H 113 H (70-110) mg/dL Calcium (8.4-10.2) mg/dL Vitamin B12 (200.0-944.0) pg/mL TSH (0.465-4.680) mIU/L Urine Protein (Negative) Urine Blood (Negative) Urine RBC (0-5) /hpf Urine WBC (0-5) /hpf Urine Bacteria (None) /hpf Hyaline Casts (0-2) /lpf Urine Mucus (None) /hpf Assessment and Plan Assessment: This is a 79-year-old gentleman with a history of multiple myeloma who is noncompliant with his cancer medication who presents to the emergency department on 12/05/2024 per his oncology request because of elevated temps and respiratory issues. Social patient was intubated and he recently extubated as well as had dialysis during this hospital visit. Altered mental status due to toxic metabolic encephalopathy. Patient has acute kidney injury and required dialysis, has elevated ionized calcium, anemia level and respiratory issues. CT of the head is unremarkable for any acute process --mentation is improving Acute on chronic kidney injury patient received dialysis Hypernatremia--resolved Hypercalcemia Very low normal folic acid Multiple myeloma on chemotherapy Volume overload with pleural effusion Acute on chronic anemia Medication noncompliance and patient was not compliant with his cancer therapy Plan: Because of very low normal folate, I started him on folic acid 1mg daily. Oncology consulted Nephrology is consulted Will defer the rest of the medical management to primary other specialist Will follow-up with patient sporadically. Time with Patient: Less than 30
[2024-12-26] MEDS: FOLIC ACID 1 MG TAB PO SCH (14:59)
[2024-12-26 19:04] LABS: Glucose,Whole Blood 111 mg/dL (70-110)
--- NOTE | 2024-12-26 22:04 | P.PN ---
Subjective Progress Note Date: 12/26/24 Principal diagnosis: Pleural effusion, MM In f/u today pt is up in chair! He reports it feels good to be up. Reports he is breathing ok, no acute pain, no documented fevers, he failed swallow eval and has NG feedings, he is tolerating well at this time, no abd c/o. Objective - Vital Signs Vital signs: Vital Signs Temp 97.5 F L 12/26/24 12:00 Pulse 64 12/26/24 12:07 Resp 16 12/26/24 12:00 BP 137/125 12/26/24 12:00 Pulse Ox 98 12/26/24 12:00 FiO2 35 12/23/24 12:00 Intake & Output 12/25/24 12/26/24 12/26/24 18:59 06:59 18:59 Intake Total 511 794 152 Output Total 835 1115 680 Balance -324 -321 -528 Weight 78.9 kg 76.7 kg Intake: IV 166 246 22 .9 KVO 130 110 10 0.9 pressure bag 36 36 12 Magnesium Sulfate-D5w Pmx 100 1 gm In Dextrose/Water 1 100ml.bag @ 100 mls/hr IVPB ONCE ONE Rx#: [id number] Tube Feeding 180 100 Blood Product 345 338 Platelet Pheresis Pas 345 338 Psoralen Unit [id number] Other 30 30 Output: Urine 835 1115 680 Other: Voiding Method Indwelling Catheter Indwelling Catheter ABP, PAP, CO, CI - Last Documented Arterial Blood Pressure 134/47 - Constitutional General appearance: Present: average body habitus, cooperative, no acute distress - EENT Eyes: Present: anicteric sclerae, EOMI ENT: Present: hearing grossly normal - Respiratory Respiratory: bilateral: diminished (weak resp effort, slightly increase RR) - Cardiovascular Rhythm: regular Heart sounds: normal: S1, S2 - Peripheral edema foot Peripheral Edema: bilateral: Trace - Gastrointestinal General gastrointestinal: Present: normal bowel sounds, soft - Neurologic Neurologic: Present: CNII-XII intact - Musculoskeletal Musculoskeletal: Present: generalized weakness - Psychiatric Psychiatric: Present: A&O x's 3, appropriate affect, intact judgment & insight - Labs CBC & Chem 7: 12/26/24 05:07 12/26/24 15:15 Labs: Abnormal Lab Results - Last 24 Hours (Table) 12/25/24 12/25/24 12/25/24 Range/Units 10:24 13:22 18:33 RBC (4.40-5.60) 10*6/uL Hgb (13.0-17.0) g/dL Hct (39.6-50.0) % MCV (80.0-97.0) fL MCH (27.0-32.0) pg Plt Count (140-440) 10*3/uL Lymphocytes # (0.90-5.00) 10*3/uL Eosinophils # (0.04-0.35) 10*3/uL BUN (9-20) mg/dL Creatinine (0.66-1.25) mg/dL Glucose (74-99) mg/dL POC Glucose (mg/dL) 119 H (70-110) mg/dL Calcium (8.4-10.2) mg/dL Vitamin B12 1155.0 H (200.0-944.0) pg/mL TSH 0.405 L (0.465-4.680) mIU/L Urine Protein Trace H (Negative) Urine Blood Moderate H (Negative) Urine RBC >182 H (0-5) /hpf Urine WBC 23 H (0-5) /hpf Urine Bacteria Occasional H (None) /hpf Hyaline Casts 4 H (0-2) /lpf Urine Mucus Rare H (None) /hpf 12/25/24 12/26/24 12/26/24 Range/Units 23:37 05:07 05:07 RBC 2.25 L (4.40-5.60) 10*6/uL Hgb 7.5 L (13.0-17.0) g/dL Hct 22.3 L (39.6-50.0) % MCV 99.1 H (80.0-97.0) fL MCH 33.3 H (27.0-32.0) pg Plt Count 85 L (140-440) 10*3/uL Lymphocytes # 0.21 L (0.90-5.00) 10*3/uL Eosinophils # 0.00 L (0.04-0.35) 10*3/uL BUN 87 H (9-20) mg/dL Creatinine 2.43 H (0.66-1.25) mg/dL Glucose 113 H (74-99) mg/dL POC Glucose (mg/dL) 119 H (70-110) mg/dL Calcium 7.9 L (8.4-10.2) mg/dL Vitamin B12 (200.0-944.0) pg/mL TSH (0.465-4.680) mIU/L Urine Protein (Negative) Urine Blood (Negative) Urine RBC (0-5) /hpf Urine WBC (0-5) /hpf Urine Bacteria (None) /hpf Hyaline Casts (0-2) /lpf Urine Mucus (None) /hpf 12/26/24 12/26/24 Range/Units 05:52 12:26 RBC (4.40-5.60) 10*6/uL Hgb (13.0-17.0) g/dL Hct (39.6-50.0) % MCV (80.0-97.0) fL MCH (27.0-32.0) pg Plt Count (140-440) 10*3/uL Lymphocytes # (0.90-5.00) 10*3/uL Eosinophils # (0.04-0.35) 10*3/uL BUN (9-20) mg/dL Creatinine (0.66-1.25) mg/dL Glucose (74-99) mg/dL POC Glucose (mg/dL) 122 H 113 H (70-110) mg/dL Calcium (8.4-10.2) mg/dL Vitamin B12 (200.0-944.0) pg/mL TSH (0.465-4.680) mIU/L Urine Protein (Negative) Urine Blood (Negative) Urine RBC (0-5) /hpf Urine WBC (0-5) /hpf Urine Bacteria (None) /hpf Hyaline Casts (0-2) /lpf Urine Mucus (None) /hpf Assessment and Plan (1) Hypercalcemia Current Visit: Yes Status: Acute Priority: High Code(s): E83.52 - HYPERCALCEMIA SNOMED Code(s): 11248420 (2) Bartelso light chain myeloma Current Visit: Yes Status: Acute Priority: High Code(s): C90.00 - MULTIPLE MYELOMA NOT HAVING ACHIEVED REMISSION SNOMED Code(s): 325454302 Plan: 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 -Completed 7 cycles of RVD in May 2024 achieving very good partial response, 99% reduction in kappa light chain -Had been on maintenance Revlimid 10 mg daily, which he stopped taking September 2024 for unclear reasons, he then developed progressive disease and symptoms of weakness, MICKEY, anemia, and thrombocytopenia -Admitted with failure to thrive with weakness, dehydration -CTA ruled out PE but reported pleural-based nodules with large right sided pleural effusion, peritoneal carcinomatosis, and retroperitoneal lymphadenopathy -720cc Right-sided thoracentesis performed, post procedure pneumo, thoravent placed, now removed. Resp status stable -Pleural fluid positive for plasma cells -Pt was intubated for resp failure -He required elitek for TLS. He required DDAVP for bleeding -CyBorD started and pt is doing better. He is being moved out of ICU today -Counts are stable, no transfusions needed today. -Renal function improving, no dialysis planned for today -Will cont to follow pt hospital course Doctor attests: I performed a history and physical examination of this patient, developed impression and plan of care. Discussed with dictator. I agree with dictators note, documented as a scribe.
[2024-12-26] MEDS ORDERED: IPRATROPIUM-ALBUTEROL 3 ML NEB INHALATION PRN (22:22)
[2024-12-26 23:44] LABS: HCT 24.8 % (39.6-50.0); HGB 8.2 g/dL (13.0-17.0); Lymphocytes # (A) 0.25 10*3/uL (0.90-5.00); MCH 33.3 pg (27.0-32.0); MCHC 33.1 g/dL (32.0-37.0); MCV 100.8 fL (80.0-97.0); Mean Platelet Volume 11.8 fL (9.5-12.2); Monocytes # (A) 0.64 10*3/uL (0.20-1.00); Monocytes % (A) 7.7 %; Neutrophils # (A) 7.41 10*3/uL (1.80-7.70); Neutrophils % (A) 88.6 %; RBC 2.46 10*6/uL (4.40-5.60); RDW 16.3 % (11.5-14.5); WBC 8.36 10*3/uL (4.50-10.00)
[2024-12-26 23:56] LABS: Platelet Count 79 10*3/uL (140-440)
[2024-12-27 00:01] LABS: Glucose,Whole Blood 128 mg/dL (70-110)
[2024-12-27 00:27] LABS: African American GFR (CKD) 39 (>60 ml/min/1.73 sqM); Anion Gap 10 mmol/L; Blood Urea Nitrogen 91 mg/dL (9-20); Calcium 8.7 mg/dL (8.4-10.2); Carbon Dioxide 29 mmol/L (22-30); Chloride 105 mmol/L (98-107); Glucose 119 mg/dL (74-99); Non-African American GFR(CKD) 34 (>60 ml/min/1.73 sqM); Sodium 144 mmol/L (137-145)
--- NOTE | 2024-12-27 06:02 | P.PN ---
Subjective Progress Note Date: 12/26/24 patient is 79-year-old gentleman with past medical history significant for multiple myeloma, hypertension, hyperlipidemia presented to the ER because of abnormal labs. Patient normally sees Dr. Broderick and was on systemic treatment which apparently had stopped taking. Patient had blood work drawn outpatient and was told by the ventilation worker to come to the ER. Patient states over the last couple of days he has been having increasing shortness of breath. Shortness of breath was present at rest as on exertion. Patient was complaining of being lethargic and weakness. Patient also complaining of productive cough with occasional episodes of hemoptysis. Denies any chest pain. There is no complaint of fever or chills. There is no complaint of orthopnea or PND. Patient denies any nausea, vomiting, pain. Patient denies any lightheaded or dizziness. Initial lab work done in the ER showed WBC 3.8, hemoglobin 9, platelet count 134 sodium 142, potassium 4, BUN 40, creatinine 1.40 glucose 103, lactate 1.2, calcium 10.5, magnesium 1.4 bilirubin 0.7, AST 27, ALT 11, troponin 0.018, proBNP 1550 Influenza A not detected Influenza B not detected RSV not detected COVID-19 not detected EKG done in the ER showed heart rate of , no ST segment elevation or depression seen, no T-wave inversions seen. Chest x-ray done in the ER showed patchy infiltrative opacity throughout the right lung with small to moderate size right pleural effusion. Questionable air-fluid level versus overlying skinfold is indeterminate for cavitary lesion or abscess. Recommend CT chest for further evaluation, consolidation in the left lung apex CT chest PE protocol done showed no definite acute PE within the vasculature, significant progression of metastatic disease with numerous pleural-based metastatic deposits and involvement of the left-sided ribs additionally there is peritoneal carcinomatosis in the partially visualized upper abdomen. Patient admitted to internal medicine service 12/07. Patient seen and examined. Status post right-sided thoracentesis with removal of 720 cc of fluid. Blood work done today showed WBC 4.9, hemoglobin 8.8, platelet count 138, sodium 143, potassium 4.1, BUN 33, creatinine 1.74, calcium 9.7 Patient had right-sided Thora vent placed this morning. Currently on 4 L of oxy gen. 12/08. Patient seen and examined. Vital signs done this morning showedTemp 98, heart rate 98, respirations 30, blood pressure 125/84, currently on 2 L of oxygen. Denies any shortness of breath at rest. Currently has a Thora vent in place. Chest x-ray done this morning shows right-sided pleural effusion, right- sided chest tube in place with residual pneumothorax. 12/09. Old male patient currently sleeping, he was agitated and restless overnight and he was prescribed Seroquel 25 mg which made him calm He still tachypneic with a breathing rate around 28, he is saturating high 90s on 3 L oxygen via nasal cannula Hemoglobin slightly trending down to 7.7 and creatinine up to 1.9 His proBNP is 1550 and procalcitonin negative at 0.16 Chest x-ray reviewed by myself showing right more than left infiltrate but looks better than 2 days ago Renal ultrasound showing no hydronephrosis finger right renal cyst He is currently kept on Zosyn. On home dose of Eliquis 2.5 mg. He had pneumothorax on the right side status post Thora vent, currently he has minimal discharge from his right Thora vent 12/10 Patient moved out of the ICU to select unit He is more awake today but still confused, he was trying to pull out his lines and Thora vent. He is mildly tachypneic with talking. He can tell he is in the hospital but also still mildly confused. Serevent was Today. Repeat chest x-ray showing mild improvement in the right pneumothorax, I reviewed the chest x-ray by myself. He remains on Zosyn and home dose of Eliquis 2.5 Will going to add small dose of Seroquel 12.5. 12/11 Patient more awake trying to talk Still feel short of breath although slightly better than yesterday, breathing r ate around 22 compared to 28 yesterday, his right upper chest Thora vent is in place and capped Repeat chest x-ray this morning showing right pleural effusion more than left with pulmonary vascular congestion suspicious for CHF. Currently patient off IV fluid He is on Zosyn and Eliquis 2.5 mg. 12/12 Patient in the morning was awake and alert but slightly agitated, he had a sitter at bedside. Thora vent was taken out after it was capped yesterday. His mentation was getting worse through the day and he became more tachypneic and tachycardic and he has to be placed on BiPAP. Repeat chest x-ray showing moderate to large right pleural effusion and evidence of CHF. Patient was moved to the ICU for more monitoring pH was 7.2 worsening to brake repairer hydraulic to 7.08 and pCO2 was elevated at 58 wor sened to 92. Creatinine also worsened up to 2.7 and sodium 146., With worsening breathing patient had to be intubated and placed on mechanical ventilation 12/13 Patient remains in the ICU intubated and sedated His breathing more quiet today. Abdomen soft Hemoglobin dropped to 7.0. Platelet count stable at 139, creatinine stable or slightly improved 2.7 down to 2.6. Patient placed on normal saline 75 mL/h. 12/14 Patient remains intubated and sedated He does not need pressors and Zosyn was discontinued He received some IV fluid Chest x-ray still showing pulmonary vascular congestion Pathology from pleural fluid came back positive for malignancy Sister and at bedside, oncology team discussing the case with them. Patient still at risk. 12/15 Patient remains intubated on mechanical ventilation in the ICU Family yesterday discussed the case with oncology team and patient remains full code and he was started on chemotherapy. Imodium can be stopped Chest x-ray showing persistent right-sided infiltrate most likely secondary to fluid and malignancy. Prognosis remains guarded and patient still high risk 12/16 Patient remains intubated and sedated Patient has no events overnight He was getting chemotherapy No IV fluid, no antibiotic chest tube feeding, he got 1 dose of 80 mg of Lasix yesterday He has good urine output of about 15 to 20 mL/h Also has low-grade temperature 100.2 yesterday and 9.9 today. Repeat chest x-ray showing CHF for right pleural effusion which is malignant p leural effusion Patient continue to get chemotherapy through tomorrow Patient has negative C. diff test 12/17 Patient still getting chemotherapy His creatinine gets worse and he has hemodialysis catheter placed in He remains intubated in the ICU on mechanical ventilation Breathing rate about 27 Creatinine worse at 5.0. Phosphorus 12.7. Glucose controlled. pH 7.23 12/18 Patient remains in the ICU intubated and sedated. Patient is today finished his chemotherapy per oncology team. Today he is not getting chemotherapy there is another cycle in order for chemotherapy on 12/21. However patient today developing worsening hypotension requiring Levophed and also started on sodium bicarb. Potassium and creatinine trending up, currently 5.6 with a plan for hemodialysis per vendor management associate. Hemoglobin 7.0. Leukocytosis is increased but pH is low at 7.1. Chest x-ray showing same malignant pleural effusion. Prognosis tomy guarded 12/19/2024 Patient is seen in follow-up today continues in the ICU with multiple consultations following maintained on mechanical ventilation. Kidney functions are worsening with nephrology following and vascular surgery was consulted and dialysis catheter was placed. Patient scheduled to undergo hemodialysis today. Patient continues on pressor support which is being weaned and overall prognosis remains significantly guarded. Hemoglobin is stable today and being given a unit of PRBC. Will follow-up on repeat labs and monitor closely. 12/20/2024 Patient is seen and evaluated in the ICU continues to be on mechanical ventilation FiO2 is 35% with a PEEP of 5. Patient is undergoing sedation holidays and currently not following commands. Patient is receiving hemodialysis and kidney functions are improving although BUN remains elevated. Patient will receive dialysis again. Patient is making urine. Patient does have fecal management system and recommend C. difficile although stool was noted to be black and loose. Prognosis is extremely guarded at this time. 12/21/2024 Patient is seen in follow-up continues on mechanical ventilation with an FiO2 of 35% and PEEP is 5. Patient undergoing sedation holidays and does open eyes and eye track although significantly weak unable to follow commands. Patient with indwelling Escobar catheter monitoring intake and output and urine appears cloudy, will send urine for evaluation. Hemoglobin 7.1 and will likely need a unit of blood. Patient continued on hemodialysis and will possibly plan for unit of blood with next session of dialysis. Patient is afebrile and maintained on Zo syn and will continue. Low-dose pressor support remains at this time and weaning as tolerated. 12/22/2024 Patient is seen in follow-up today remains critically ill although showing some improvements. Patient is maintained on mechanical ventilation and not ready for weaning with chest x-ray showing pleural effusion recurrence and chest ultrasound was done with discussion of possible thoracentesis. Hemoglobin low and will be given a unit of blood and will discuss with oncology regarding treatment plans. Patient is ongoing chemotherapy at this time and prognosis remains extremely guarded. Patient is maintained on low-dose pressor support, continued IV Zosyn, and amiodarone drip as patient was found to be in atrial fibrillation with RVR last night. Multiple consultations following. Patient is mildly sedated on low-dose propofol although is awake tracking and following commands, extremely weak although is attempting to lift upper extremities. Patient will require extensive physical therapy. 12/25/2024 Patient is seen in follow-up today remains in the ICU with multiple medical consultations following. Neurology has been consulted and pending at this time for assessment of mentation. Patient is off sedation has been extubated successfully is maintained on 2 to 3 L via nasal cannula. Patient continues with renal failure with nephrology following undergoing hemodialysis. Currently on hold today. Urine output is cloudy and is being closely monitored off antibiotic therapy at this time. Overall prognosis is extremely poor and guarded at this time. Patient awaiting swallow eval and will continue n.p.o. for now. 12/26/2024 Patient is seen in follow-up more awake today on 3 L via nasal cannula currently sitting up in the chair. Patient is a downgrade out of the ICU once a bed becomes available. Multiple consultations following including nephrology and last hemodialysis was 12/23/2024 and holding dialysis for now showing clinical improvement and renal functions. Continued close monitoring of electrolytes and being replaced per protocol. Patient does have an NG tube for now and maintaining on tube feedings will reeval with speech once patient is more strong. Patient is afebrile at this time. Hemoglobin is stable above 8. Review of systems: Constitutional: No reports of fatigue, fever, or chills Cardiovascular: No reports of chest pain or palpitations Respiratory: No reports of shortness of breath or cough GI: No reports of nausea, vomiting, or diarrhea, tolerating tube feeds : No reports of dysuria or retention, continues with indwelling Escobar catheter at this time for strict LADARIUS Neurovascular: reports of significant generalized weakness All medications have been reviewed Physical exam: GENERAL: The patient is a 79-year-old male who is alert and oriented x 3, more awake today, sitting up in the chair. Maintained on 3 L, well-developed, eld erly appearing, ill-appearing HEENT: Pupils are round and equally reacting to light. EOMI. No scleral icterus. No conjunctival pallor. Normocephalic, atraumatic. No pharyngeal erythema. No thyromegaly. CARDIOVASCULAR: S1 and S2 muffled, irregular, rate controlled PULMONARY: Breath sounds diminished bilaterally and congested, no wheezing , faint crackles at the bases. Tachypneic, decreased breath sounds on the right side ABDOMEN: Soft, nontender, nondistended, normoactive bowel sounds. No palpable organomegaly. MUSCULOSKELETAL: No joint swelling or deformity. EXTREMITIES: No cyanosis, clubbing, or pedal edema. NEUROLOGICAL: Gross neurological examination did not reveal any focal deficits. Diffusely weak SKIN: No rashes. no petechiae. Assessment: Acute hypoxic respiratory failure requiring intubation and mechanical ventilation status post successful extubation on 12/23/2024, currently on 3 L via nasal cannula Malignant large pleural effusion status post thoracocentesis. On 12/13 has breathing that worsened because of CHF and large pleural effusion and patient had to be placed on mechanical ventilation. Pathology sample came back positive for malignant cells Change in mental status, metabolic encephalopathy, undergoing neurological workup, improved at baseline Iatrogenic right pneumothorax status post Thora vent placement, which was removed on 12/13 Possible septic shock Acute kidney injury with worsening kidney functions, status post dialysis catheter placement requiring hemodialysis as of 12/19/2024, last hemodialysis 12/23/2024 Multiple myeloma, s/p chemotherapy 12/15-12/17 Hypercalcemia Chronic anemia Hypertension Hyperlipidemia Obstructive sleep apnea A-fib and RVR, currently on amiodarone drip 12/22/2024 GI prophylaxis DVT prophylaxis Full code Plan: Patient is continued in the ICU currently with multiple consultations following was successfully extubated on 12/23/2024 maintained on 3 L via nasal cannula. Patient is a downgrade out of the ICU once a bed becomes available recommend to continue with telemetry monitoring Patient failed swallow eval and currently has an NG tube with tube feeds and will continue for now. Reevaluate with speech as patient is more awake and alert Patient is status post chemotherapy on 12/15-12/17. Oncology following Nephrology following as patient had worsening kidney functions requiring hemodialysis. Last hemodialysis was on 12/23/2024. Per patient's family, he would not want reintubation and CODE STATUS to be addressed as patient remains full code at this time due to multiple complex medical issues, overall prognosis is extremely guarded at this time The impression and plan of care has been dictated by Mildred Goff, Nurse Practitioner as directed. Dr. Kieth MD I have performed a history and examination and MDM of this patient, discussed the same with the dictator, and agree with the dictator's assessment and plan as written ,documented as a scribe. Based on total visit time, I have performed more than 50% of the visit. Objective - Vital Signs Vital signs: Vital Signs Temp 97.8 F 12/26/24 04:00 Pulse 70 12/26/24 08:42 Resp 26 H 12/26/24 07:00 BP 133/69 12/26/24 07:00 Pulse Ox 95 12/26/24 07:00 FiO2 35 12/23/24 12:00 Intake & Output 12/25/24 12/26/24 12/26/24 18:59 06:59 18:59 Intake Total 511 794 146 Output Total 835 1115 475 Balance -324 -321 -329 Weight 78.9 kg 76.7 kg Intake: IV 166 246 16 .9 KVO 130 110 10 0.9 pressure bag 36 36 6 Magnesium Sulfate-D5w Pmx 100 1 gm In Dextrose/Water 1 100ml.bag @ 100 mls/hr IVPB ONCE ONE Rx#: [id number] Tube Feeding 180 100 Blood Product 345 338 Platelet Pheresis Pas 345 338 Psoralen Unit [id number] Other 30 30 Output: Urine 835 1115 475 Other: Voiding Method Indwelling Catheter Indwelling Catheter ABP, PAP, CO, CI - Last Documented Arterial Blood Pressure 149/56 - Labs CBC & Chem 7: 12/26/24 23:22 12/26/24 23:22 Labs: Abnormal Lab Results - Last 24 Hours (Table) 12/25/24 12/25/24 12/25/24 Range/Units 10:24 13:22 18:33 RBC (4.40-5.60) 10*6/uL Hgb (13.0-17.0) g/dL Hct (39.6-50.0) % MCV (80.0-97.0) fL MCH (27.0-32.0) pg Plt Count (140-440) 10*3/uL Lymphocytes # (0.90-5.00) 10*3/uL Eosinophils # (0.04-0.35) 10*3/uL BUN (9-20) mg/dL Creatinine (0.66-1.25) mg/dL Glucose (74-99) mg/dL POC Glucose (mg/dL) 119 H (70-110) mg/dL Calcium (8.4-10.2) mg/dL Vitamin B12 1155.0 H (200.0-944.0) pg/mL TSH 0.405 L (0.465-4.680) mIU/L Urine Protein Trace H (Negative) Urine Blood Moderate H (Negative) Urine RBC >182 H (0-5) /hpf Urine WBC 23 H (0-5) /hpf Urine Bacteria Occasional H (None) /hpf Hyaline Casts 4 H (0-2) /lpf Urine Mucus Rare H (None) /hpf 12/25/24 12/26/24 12/26/24 Range/Units 23:37 05:07 05:07 RBC 2.25 L (4.40-5.60) 10*6/uL Hgb 7.5 L (13.0-17.0) g/dL Hct 22.3 L (39.6-50.0) % MCV 99.1 H (80.0-97.0) fL MCH 33.3 H (27.0-32.0) pg Plt Count 85 L (140-440) 10*3/uL Lymphocytes # 0.21 L (0.90-5.00) 10*3/uL Eosinophils # 0.00 L (0.04-0.35) 10*3/uL BUN 87 H (9-20) mg/dL Creatinine 2.43 H (0.66-1.25) mg/dL Glucose 113 H (74-99) mg/dL POC Glucose (mg/dL) 119 H (70-110) mg/dL Calcium 7.9 L (8.4-10.2) mg/dL Vitamin B12 (200.0-944.0) pg/mL TSH (0.465-4.680) mIU/L Urine Protein (Negative) Urine Blood (Negative) Urine RBC (0-5) /hpf Urine WBC (0-5) /hpf Urine Bacteria (None) /hpf Hyaline Casts (0-2) /lpf Urine Mucus (None) /hpf 12/26/24 Range/Units 05:52 RBC (4.40-5.60) 10*6/uL Hgb (13.0-17.0) g/dL Hct (39.6-50.0) % MCV (80.0-97.0) fL MCH (27.0-32.0) pg Plt Count (140-440) 10*3/uL Lymphocytes # (0.90-5.00) 10*3/uL Eosinophils # (0.04-0.35) 10*3/uL BUN (9-20) mg/dL Creatinine (0.66-1.25) mg/dL Glucose (74-99) mg/dL POC Glucose (mg/dL) 122 H (70-110) mg/dL Calcium (8.4-10.2) mg/dL Vitamin B12 (200.0-944.0) pg/mL TSH (0.465-4.680) mIU/L Urine Protein (Negative) Urine Blood (Negative) Urine RBC (0-5) /hpf Urine WBC (0-5) /hpf Urine Bacteria (None) /hpf Hyaline Casts (0-2) /lpf Urine Mucus (None) /hpf
[2024-12-27 06:06] LABS: Glucose,Whole Blood 116 mg/dL (70-110)
[2024-12-27 06:41] LABS: Basophils # (A) 0.01 10*3/uL (0.00-0.10); Basophils % (A) 0.1 %; HCT 23.8 % (39.6-50.0); HGB 7.7 g/dL (13.0-17.0); Lymphocytes # (A) 0.23 10*3/uL (0.90-5.00); Lymphocytes % (A) 2.9 %; MCH 32.5 pg (27.0-32.0); MCHC 32.4 g/dL (32.0-37.0); MCV 100.4 fL (80.0-97.0); Monocytes % (A) 7.5 %; RBC 2.37 10*6/uL (4.40-5.60); RDW 16.4 % (11.5-14.5); WBC 7.98 10*3/uL (4.50-10.00)
[2024-12-27 07:11] LABS: African American GFR (CKD) 41 (>60 ml/min/1.73 sqM); Anion Gap 8 mmol/L; Blood Urea Nitrogen 91 mg/dL (9-20); Calcium 8.7 mg/dL (8.4-10.2); Carbon Dioxide 32 mmol/L (22-30); Chloride 105 mmol/L (98-107); Glucose 115 mg/dL (74-99); Non-African American GFR(CKD) 36 (>60 ml/min/1.73 sqM); Potassium 3.7 mmol/L (3.5-5.1); Sodium 145 mmol/L (137-145)
[2024-12-27 07:21] LABS: Platelet Count 78 10*3/uL (140-440)
[2024-12-27] MEDS: IPRATROPIUM-ALBUTEROL 3 ML NEB INHALATION SCH (08:47)
--- NOTE | 2024-12-27 10:53 | P.PN ---
Subjective Patient is seen in follow-up for acute kidney injury. Remains off vasopressors. Extubated December 23, 2024. On IV Lasix. Nonoliguric. Receiving tube feeds. Last hemodialysis December 23, 2024. Started on dialysis December 19, 2024. Vital signs are stable. General: No resting in bed. HEENT: On nasal cannula. NG tube noted. LUNGS: No audible rhonchi or wheezes. HEART: Rate and Rhythm are regular. ABDOMEN: Nontender. EXTREMITITES: 1+ edema. Objective - Vital Signs Vital signs: Vital Signs Temp 96.9 F L 12/26/24 20:00 Pulse 78 12/27/24 08:59 Resp 16 12/27/24 03:30 BP 125/62 12/27/24 03:30 Pulse Ox 95 12/27/24 08:50 FiO2 35 12/23/24 12:00 Intake & Output 12/26/24 12/27/24 12/27/24 18:59 06:59 18:59 Intake Total 164 Output Total 975 950 Balance -811 -950 Weight 72.5 kg Intake: IV 34 .9 KVO 10 0.9 pressure bag 24 Tube Feeding 100 Other 30 Output: Urine 975 950 Other: Voiding Method Indwelling Catheter Indwelling Catheter # Bowel Movements 1 1 ABP, PAP, CO, CI - Last Documented Arterial Blood Pressure 113/36 - Labs CBC & Chem 7: 12/27/24 06:08 12/27/24 06:08 Labs: Abnormal Lab Results - Last 24 Hours (Table) 12/26/24 12/26/24 12/26/24 Range/Units 12:26 19:02 23:22 RBC 2.46 L (4.40-5.60) 10*6/uL Hgb 8.2 L (13.0-17.0) g/dL Hct 24.8 L (39.6-50.0) % MCV 100.8 H (80.0-97.0) fL MCH 33.3 H (27.0-32.0) pg Plt Count 79 L (140-440) 10*3/uL Immature Gran # 0.06 H (0.00-0.04) 10*3/uL Lymphocytes # 0.25 L (0.90-5.00) 10*3/uL Eosinophils # 0.00 L (0.04-0.35) 10*3/uL Carbon Dioxide (22-30) mmol/L BUN (9-20) mg/dL Creatinine (0.66-1.25) mg/dL Glucose (74-99) mg/dL POC Glucose (mg/dL) 113 H 111 H (70-110) mg/dL 12/26/24 12/27/24 12/27/24 Range/Units 23:22 00:00 06:05 RBC (4.40-5.60) 10*6/uL Hgb (13.0-17.0) g/dL Hct (39.6-50.0) % MCV (80.0-97.0) fL MCH (27.0-32.0) pg Plt Count (140-440) 10*3/uL Immature Gran # (0.00-0.04) 10*3/uL Lymphocytes # (0.90-5.00) 10*3/uL Eosinophils # (0.04-0.35) 10*3/uL Carbon Dioxide (22-30) mmol/L BUN 91 H (9-20) mg/dL Creatinine 1.87 H (0.66-1.25) mg/dL Glucose 119 H (74-99) mg/dL POC Glucose (mg/dL) 128 H 116 H (70-110) mg/dL 12/27/24 12/27/24 Range/Units 06:08 06:08 RBC 2.37 L (4.40-5.60) 10*6/uL Hgb 7.7 L (13.0-17.0) g/dL Hct 23.8 L (39.6-50.0) % MCV 100.4 H (80.0-97.0) fL MCH 32.5 H (27.0-32.0) pg Plt Count 78 L (140-440) 10*3/uL Immature Gran # (0.00-0.04) 10*3/uL Lymphocytes # 0.23 L (0.90-5.00) 10*3/uL Eosinophils # 0.00 L (0.04-0.35) 10*3/uL Carbon Dioxide 32 H (22-30) mmol/L BUN 91 H (9-20) mg/dL Creatinine 1.77 H (0.66-1.25) mg/dL Glucose 115 H (74-99) mg/dL POC Glucose (mg/dL) (70-110) mg/dL Microbiology - Last 24 Hours (Table) 12/25/24 13:22 Urine Culture - Final Urine,Voided Assessment and Plan Plan: Assessment: 1. Acute kidney injury secondary to ATN. No hydronephrosis noted on imaging. UA fairly benign. Started on hemodialysis December 19, 2024. Femoral catheter was exchanged December 23, 2024. Last dialysis treatment was December 23, 2024. Now nono liguric. Creatinine 1.77 today. Creatinine in July 2024 was 0.8. 2. Hypernatremia from lack of oral water intake. Status post D5W. 3. Volume overload with pleural effusions. Improved with ultrafiltration and diuresis. 4. Multiple myeloma. On chemotherapy. 5. Hypercalcemia secondary to volume contraction as well as multiple myeloma. Improved. 6. Pneumonia s/p antibiotics. 7. Anemia. Due to underlying multiple myeloma. Status post IV iron. Has received blood transfusions this admission. 8. Metabolic acidosis secondary to acute kidney injury. Improved. Plan: Hold off on hemodialysis. Discontinue dialysis catheter. Maintain IV Lasix. Potassium replaced. Receiving tube feeds. Failed swallow eval. Continue to monitor renal function and urine output. Prognosis guarded.
[2024-12-27 11:30] LABS: Glucose,Whole Blood 131 mg/dL (70-110)
[2024-12-27] MEDS: POTASSIUM BICARBONATE/CIT AC 20 MEQ TABLET.EFF NG-TUBE STA (12:14)
[2024-12-27] MEDS: POTASSIUM CHLORIDE ER 20 MEQ TAB.ER PO STA (15:22)
--- NOTE | 2024-12-27 16:28 | P.PN ---
Subjective Progress Note Date: 12/27/24 Principal diagnosis: Acute hypoxic respiratory failure with large right-sided pleural effusion, multiple myeloma, Patient is a 79-year-old male with past medical history significant for hypertension, hyperlipidemia, KYM, multiple myeloma. His PCP is Dr. Jaimes. Also, follows with his oncologist Dr. Broderick. Patient had a bone marrow biopsy back on 11/11/2023 which was positive for multiple myeloma. Previously on systemic treatment, which he had stopped, apparently confused on whether he should continue the medication. Patient sent in by his oncologist yesterday for abnormal labs. On arrival, complaining of increased work of breathing over the last month. Occasional cough with mucus and occasional blood tinge. Workup in the ED including a chest CT angio which did not show any definite acute central pulmonary embolism, but technically limited due to suboptimal timing of contrast bolus. Overall, findings were consistent with disease progression. There was extensive soft tissue pleural metastatic deposits throughout bilateral lung henderson right greater than left. Extensive pleural metastatic disease in the left apex with involvement of the left first, second, and third ribs. Large right-sided pleural effusion and trace left-sided pleural effusion. Partially visualized upper abdomen demonstrating peritoneal carcinomatosis with large soft tissue implant in the left retroperitoneum measuring 6.4 x 4.1 cm. Bilateral hydronephrosis partially visualized. Enlarged retroperitoneal lymph node. Extensive osteolytic lesions throughout the visualized axial and appendicular skeleton compatible with osseous metastatic disease. CBC: WBC count 3.8, hemoglobin 9, platelets 134. CMP: Sodium 142, potassium 4, chloride 107, serum bicarb 21, BUN 40, creatinine 1.4, glucose 103. Lactic 1.2. Ionized calcium 5.4, magnesium 1.4, phosphorus 3.7. LFTs not elevated. Troponin 0.018. NT proBNP 1550. Viral screen negative for influenza, RSV, COVID. Patient currently being seen on the oncology floor. He is awake and alert, on 3 L/min nasal cannula, tachypneic in the mid 20s per minute. States he has been progressively more short of breath over the last month. States he uses 2 L supplemental oxygen hooked to his CPAP at bedtime. Denies chest pain, heart palpitations, lightheadedness or syncopal events, lower extremity edema. Does report occasional productive cough with brown mucus and occasional blood tinge. Denies any fevers, chills, chest pain, olivia hemoptysis. Denies known sick contacts. Appetite has been poor. Denies abdominal pain, nausea, vomiting, diarrhea, melena, hematochezia. Denies anticoagulant use. Denies history of previous thoracentesis. Patient was empirically covered on a combination of Zosyn and Levaquin in the ED. Current vital signs: Temperature 97.9 F, heart rate 100 bpm, blood pressure 145/66 mmHg, SpO2 recorded at 94% on 2 L/min nasal cannula. Patient was seen today on 12/07/2024, I had to move the patient earlier this morning to ICU as his right-sided pneumothorax showed some progression went from 10% to 30% overnight. Came into the ICU, and placed a Thora vent, 13 Telugu in the right pleural space with complete resolution of his right-sided pneumothorax. And more bloody effusion was drained through the Thora vent shortly after the Thora vent was placed. Again there was complete resolution of his pneumothorax, and almost near complete resolution of his pleural effusion which was bloody all along. Patient is now on 4 L nasal cannula, in no distress, he is off heparin, and considering the bloody effusion, I will hold on anticoagulation therapy for now. Patient remains on amiodarone, bron chodilators/updrafts, he is also on Zosyn and Levaquin empirically. WBC count is 4.4 hemoglobin 8.5 electrolytes are normal BUN is 33 creatinine 1.74. The fluid I drained yesterday is clearly exudative with high LDH of 1400 and protein more than 3600 this is likely consistent with malignant pleural effusion most likely related to his multiple myeloma. Patient was seen today on 12/08/2024, remains in the ICU, continues to have Thora vent in place, patient had over 1200 cc of bloody effusion drained over the last 24 hours, and prior to this I have drained over 700 cc initially and the fluid was also bloody. This is most likely a pleural effusion related to multiple myeloma, cytology is pending. Patient remains empirically on antibiotics, however I went ahead and discontinued Levaquin on this patient, and I kept him on Zosyn as he seems to be developing some worsening of his renal status, patient is clinically dry dehydrated, and I am recommending increase of his IV fluid. Hemoglobin is 7.7 WBC count is 4.7 electrolytes are normal however creatinine went up to 1.92 from 1.74 yesterday, baseline on admission was 1.40. Patient remains off heparin mostly because of his bloody effusion, patient is on 3 L nasal cannula with O2 sats of 96%. Chest x-ray today was reviewed, I did not truly appreciate a pneumothorax on the chest x-ray today, and hardly any air leak is noted. Patient was seen today on 12/09/2024, remains in the ICU, continues to have Thora vent in place, and connected to Pleur-evac. No airleak is noted, minimal drainage overnight, less than 50 cc. No further air leak is noted, hence I went ahead and disconnected the Thora vent from Pleur-evac, and applied the one-way valve on the Thora vent. Patient is doing well, relatively asymptomatic, remains on IV fluid at 75 cc/h with slight improvement in his renal status, renal ultrasound showed no evidence of hydronephrosis. Patient remains on Zosyn, Eliquis is on hold, he is also on Seroquel. Chest x-ray will be repeated sometime later today to make sure the patient does not have any expansion of pneumothorax in the right lung. Continues to have some right lower lobe consolidation,, patient remains on antibiotics. The results on the pleural effusion are pending especially the cytology, the protein in the pleural effusion and the LDH suggest that it is malignant unless proven otherwise., It is definitely exudative. WBC count is 4.5 hemoglobin 7.4 electrolytes are normal BUN is 41 creatinine 1.75. Platelets are 1 27,000. Seen today on 12/10/2024, patient is now on medical floor, very comfortable, on 3 L nasal cannula, not in distress. Patient is hemodynamically stable blood pressure is 128/65, heart rate is 84, patient is afebrile. Temp is 97.6. Chest x-ray this morning was read by the ER physician as a left-sided pneumothorax which I reviewed myself, and I fully disagreed with the reading, this would have been a spontaneous left-sided pneumothorax, however follow-up chest x-ray was done and there was no evidence of pneumothorax on the left side. But both x- rays did reflect evidence of fluid overload and pulmonary edema with bilateral pleural effusions, has I recommended diuresing the patient further today. Yesterday he responded well to Lasix, and I am recommending another dose of Lasix 40 mg IV push to be given today. His Thora vent remains off suction, but he does have the one-way valve/occluding valve. And there is no evidence of pneumothorax on the right side. But again I believe the patient is building bilateral pleural effusions again. Cytology from his pleural effusion which I drained back on 12/07 is still pending I expect it to be related to multiple my eloma. Labs today showed relatively normal electrolytes BUN is 31 creatinine is up to 1.82 12/23/2024, the patient is still intubated on the mechanical ventilator. Awake and communicating. Slightly better and improvement in motor functions compared to yesterday. He remains on propofol running at 50 mcg/kg/min. He is off norepinephrine. Cardiac rhythm is back into sinus rhythm and the patient remains on amiodarone 0.5 mg/min. He is on assist-control mode at rate of 20, tidal volume of 550, FiO2 of 35% with a PEEP of 5. Blood gas showed a pH of 7.4 with a pCO2 of 32 and pO2 of 90. Started on vital HP at rate of 20 cc an hour. Urine output remains low. Undergoing hemodialysis and last session was yesterday. Dialysis catheter needs to be replaced as the catheter itself is functioning. Chest x-ray shows a right-sided pleural effusion and ongoing right lung consolidation. Ultrasound also showed the presence of a right-sided pleural effusion. Left lung remains essentially clear. The white cell count of 8.7, hemoglobin 7.9 and a platelet count of 64. Sodium is at 136, potassium is at 4.1, bicarb is at 18, BUN is 89 with a creatinine of 3.03. Glucose at 126. Patient was taken off sedation. Weaning parameters were done and the patient showed a rapid shallow breathing index of 77. The NIF was 18, FVC was 1.2 L, tidal volume was 413. Following that, the patient was given a pressure support of 5 and a PEEP of 5 and a subsequent blood gas showed a pH of 7.39 with a pCO2 of 33 and pO2 of 108. 12/24/2024, the patient remains extubated on 3 L of oxygen by nasal cannula. Awake and alert and communicating. He is profoundly weak. Adequate cough. Urine output in the order of 20 cc an hour. Underwent hemodialysis yesterday with a total of 1.5 L of ultrafiltration. Cardiac rhythm is sinus. Diarrhea has subsided. Remains on IV Zosyn. No other significant events overnight. Blood work shows white cell count of 8.8, hemoglobin of 7 and a platelet count of 50. Sodium is at 133, K is at 3.5, BUN is 56 with a creatinine of 2.3 4 Patient was seen today on 12/25/2024, remains in the ICU, patient was extubated on 12/23/24, tolerated extubation well. Patient remains in the ICU, he is on 3 L nasal cannula, patient is on IV fluid at 0.9 normal saline 10 cc/h. Patient remains on Velcade Cytoxan and Decadron, as per her hematology/oncology. Patient seems to be a bit confused, has I recommended your evaluation, apparently has been confused for the last few days, and I could not assess CODE STATUS with the patient himself. Supposed to have hemodialysis today, patient has received a total of 4 units of packed RBCs since admission, and considering may have to put a nasogastric tube in this patient with platelets are 50,000, may have to give him 2 units of platelets prior to nasogastric tube placement. Will have a swallow evaluation, if he fails the swallow evaluation, then he needs to have a nasogastric tube placed or have to use TPN. I prefer. Enteral feeding over TPN feeding. Labs today WBC count is 11.4 hemoglobin 7.4 electrolytes are normal BUN is 73 creatinine 2.65. Chest x-ray showed small to moderate right-sided pleural effusion and small left pleural effusion with some component of edema, not much of a change in the x-ray today compared to the day prior. Patient was seen today on12/26/24, remains in the ICU, basically about the same, mentation seems to be a little bit better compared to yesterday. Patient seems to be a bit more oriented, on 2 L nasal cannula, he had a nasogastric tube placed yesterday, and he is receiving enteral feeding. Patient still did not pass his swallow evaluation and he is to have another repeat swallow evaluation study tomorrow. He is on vital AF at 40 cc/h. Patient is being fed via nasogastric tube. Chest x-ray continues to show right-sided pleural effusion WBC count is 6.9 hemoglobin 7.5 platelets today are 85,000. Electrolytes are normal BUN is 87 creatinine 2.43. Patient is on Lasix, did not require hemodialysis yesterday. Patient was seen today on 12/27/2024, patient was transferred yesterday out of the ICU, he is now on the medical floor, doing fairly well, remains confused, on 2 L nasal cannula, O2 sats is 94%. WBC count is 7.9 hemoglobin is 7.7 electrolytes are normal BUN is 91 creatinine improving down to 1.77 Objective - Vital Signs Vital signs: Vital Signs Temp 97.6 F 12/27/24 12:00 Pulse 74 12/27/24 16:19 Resp 16 12/27/24 14:00 BP 101/44 12/27/24 12:00 Pulse Ox 94 L 12/27/24 12:00 FiO2 35 12/23/24 12:00 Intake & Output 12/26/24 12/27/24 12/27/24 18:59 06:59 18:59 Intake Total 164 Output Total 769 430 7275 Balance -811 -950 -1550 Weight 72.5 kg Intake: IV 34 .9 KVO 10 0.9 pressure bag 24 Tube Feeding 100 Other 30 Output: Urine 885 017 7028 Stool 50 Other: Voiding Method Indwelling Catheter Indwelling Catheter Indwelling Catheter # Bowel Movements 1 1 ABP, PAP, CO, CI - Last Documented Arterial Blood Pressure 113/36 - Exam GENERAL EXAM: Revealed 79-year-old white male in no distress, on 2 L nasal cannula not in distress, seems to be confused HEAD: Normocephalic and atraumatic, EYES: Normal reaction of pupils, equal size. NOSE: Clear with pink turbinates. Nasogastric tube in place in the left nares THROAT: No erythema or exudates. NECK: No masses, no JVD. CHEST: No chest wall deformity. Diminished breath sounds at the right base otherwise unremarkable LUNGS: Diminished breath sound bilaterally with crackles no rhonchi no wheezes CVS: S1 and S2 normal with no audible murmur, regular rhythm. No extra heart sounds ABDOMEN: No hepatosplenomegaly, active bowel sounds, no guarding or rigidity. SKIN: No rashes CENTRAL NERVOUS SYSTEM: Confused otherwise unremarkable. No focal deficit EXTREMITIES: No clubbing, trace of bipedal edema no cyanosis - Labs CBC & Chem 7: 12/27/24 06:08 12/27/24 06:08 Labs: Abnormal Lab Results - Last 24 Hours (Table) 12/26/24 12/26/24 12/26/24 Range/Units 19:02 23:22 23:22 RBC 2.46 L (4.40-5.60) 10*6/uL Hgb 8.2 L (13.0-17.0) g/dL Hct 24.8 L (39.6-50.0) % MCV 100.8 H (80.0-97.0) fL MCH 33.3 H (27.0-32.0) pg Plt Count 79 L (140-440) 10*3/uL Immature Gran # 0.06 H (0.00-0.04) 10*3/uL Lymphocytes # 0.25 L (0.90-5.00) 10*3/uL Eosinophils # 0.00 L (0.04-0.35) 10*3/uL Carbon Dioxide (22-30) mmol/L BUN 91 H (9-20) mg/dL Creatinine 1.87 H (0.66-1.25) mg/dL Glucose 119 H (74-99) mg/dL POC Glucose (mg/dL) 111 H (70-110) mg/dL 12/27/24 12/27/24 12/27/24 Range/Units 00:00 06:05 06:08 RBC 2.37 L (4.40-5.60) 10*6/uL Hgb 7.7 L (13.0-17.0) g/dL Hct 23.8 L (39.6-50.0) % MCV 100.4 H (80.0-97.0) fL MCH 32.5 H (27.0-32.0) pg Plt Count 78 L (140-440) 10*3/uL Immature Gran # (0.00-0.04) 10*3/uL Lymphocytes # 0.23 L (0.90-5.00) 10*3/uL Eosinophils # 0.00 L (0.04-0.35) 10*3/uL Carbon Dioxide (22-30) mmol/L BUN (9-20) mg/dL Creatinine (0.66-1.25) mg/dL Glucose (74-99) mg/dL POC Glucose (mg/dL) 128 H 116 H (70-110) mg/dL 12/27/24 12/27/24 Range/Units 06:08 11:29 RBC (4.40-5.60) 10*6/uL Hgb (13.0-17.0) g/dL Hct (39.6-50.0) % MCV (80.0-97.0) fL MCH (27.0-32.0) pg Plt Count (140-440) 10*3/uL Immature Gran # (0.00-0.04) 10*3/uL Lymphocytes # (0.90-5.00) 10*3/uL Eosinophils # (0.04-0.35) 10*3/uL Carbon Dioxide 32 H (22-30) mmol/L BUN 91 H (9-20) mg/dL Creatinine 1.77 H (0.66-1.25) mg/dL Glucose 115 H (74-99) mg/dL POC Glucose (mg/dL) 131 H (70-110) mg/dL Microbiology - Last 24 Hours (Table) 12/25/24 13:22 Urine Culture - Final Urine,Voided Assessment and Plan Assessment: Impression: Acute hypoxemic respiratory failure, multifactorial Status post right-sided thoracentesis with right-sided iatrogenic pneumothorax requiring Thora vent placement however this was removed after a few days without any residual effect. Large right-sided pleural effusion, most likely secondary to multiple myeloma, bloody effusion. Multiple myeloma, chest CT angio concerning for disease progression Atrial fibrillation with RVR, being addressed by cardiology Tumor lysis syndrome resolved Acute kidney injury, with bilateral hydronephrosis, on hemodialysis Hypercalcemia, ionized calcium 5.4 Chronic anemia Hypertension History of hyperlipidemia History of obstructive sleep apnea with CPAP Acute metabolic encephalopathy Recommendation: Continue oxygen and titrate accordingly Continue incentive spirometry, ambulate if possible Continue present supportive care measures Continue chemotherapy as per oncology on the case Continue amiodarone Continue to hold anticoagulation treatment Overall prognosis remains extremely poor and guarded Will continue to follow Time with Patient: Less than 30
[2024-12-27 18:12] LABS: Glucose,Whole Blood 135 mg/dL (70-110)
--- NOTE | 2024-12-27 22:17 | P.PN ---
Subjective Progress Note Date: 12/27/24 patient is 79-year-old gentleman with past medical history significant for multiple myeloma, hypertension, hyperlipidemia presented to the ER because of abnormal labs. Patient normally sees Dr. Broderick and was on systemic treatment which apparently had stopped taking. Patient had blood work drawn outpatient and was told by the family protection specialist to come to the ER. Patient states over the last couple of days he has been having increasing shortness of breath. Shortness of breath was present at rest as on exertion. Patient was complaining of being lethargic and weakness. Patient also complaining of productive cough with occasional episodes of hemoptysis. Denies any chest pain. There is no complaint of fever or chills. There is no complaint of orthopnea or PND. Patient denies any nausea, vomiting, pain. Patient denies any lightheaded or dizziness. Initial lab work done in the ER showed WBC 3.8, hemoglobin 9, platelet count 134 sodium 142, potassium 4, BUN 40, creatinine 1.40 glucose 103, lactate 1.2, calcium 10.5, magnesium 1.4 bilirubin 0.7, AST 27, ALT 11, troponin 0.018, proBNP 1550 Influenza A not detected Influenza B not detected RSV not detected COVID-19 not detected EKG done in the ER showed heart rate of , no ST segment elevation or depression seen, no T-wave inversions seen. Chest x-ray done in the ER showed patchy infiltrative opacity throughout the right lung with small to moderate size right pleural effusion. Questionable air-fluid level versus overlying skinfold is indeterminate for cavitary lesion or abscess. Recommend CT chest for further evaluation, consolidation in the left lung apex CT chest PE protocol done showed no definite acute PE within the vasculature, significant progression of metastatic disease with numerous pleural-based metastatic deposits and involvement of the left-sided ribs additionally there is peritoneal carcinomatosis in the partially visualized upper abdomen. Patient admitted to internal medicine service 12/07. Patient seen and examined. Status post right-sided thoracentesis with removal of 720 cc of fluid. Blood work done today showed WBC 4.9, hemoglobin 8.8, platelet count 138, sodium 143, potassium 4.1, BUN 33, creatinine 1.74, calcium 9.7 Patient had right-sided Thora vent placed this morning. Currently on 4 L of oxy gen. 12/08. Patient seen and examined. Vital signs done this morning showedTemp 98, heart rate 98, respirations 30, blood pressure 125/84, currently on 2 L of oxygen. Denies any shortness of breath at rest. Currently has a Thora vent in place. Chest x-ray done this morning shows right-sided pleural effusion, right- sided chest tube in place with residual pneumothorax. 12/09. Old male patient currently sleeping, he was agitated and restless overnight and he was prescribed Seroquel 25 mg which made him calm He still tachypneic with a breathing rate around 28, he is saturating high 90s on 3 L oxygen via nasal cannula Hemoglobin slightly trending down to 7.7 and creatinine up to 1.9 His proBNP is 1550 and procalcitonin negative at 0.16 Chest x-ray reviewed by myself showing right more than left infiltrate but looks better than 2 days ago Renal ultrasound showing no hydronephrosis finger right renal cyst He is currently kept on Zosyn. On home dose of Eliquis 2.5 mg. He had pneumothorax on the right side status post Thora vent, currently he has minimal discharge from his right Thora vent 12/10 Patient moved out of the ICU to select unit He is more awake today but still confused, he was trying to pull out his lines and Thora vent. He is mildly tachypneic with talking. He can tell he is in the hospital but also still mildly confused. Serevent was Today. Repeat chest x-ray showing mild improvement in the right pneumothorax, I reviewed the chest x-ray by myself. He remains on Zosyn and home dose of Eliquis 2.5 Will going to add small dose of Seroquel 12.5. 12/11 Patient more awake trying to talk Still feel short of breath although slightly better than yesterday, breathing r ate around 22 compared to 28 yesterday, his right upper chest Thora vent is in place and capped Repeat chest x-ray this morning showing right pleural effusion more than left with pulmonary vascular congestion suspicious for CHF. Currently patient off IV fluid He is on Zosyn and Eliquis 2.5 mg. 12/12 Patient in the morning was awake and alert but slightly agitated, he had a sitter at bedside. Thora vent was taken out after it was capped yesterday. His mentation was getting worse through the day and he became more tachypneic and tachycardic and he has to be placed on BiPAP. Repeat chest x-ray showing moderate to large right pleural effusion and evidence of CHF. Patient was moved to the ICU for more monitoring pH was 7.2 worsening to mechanical designer to 7.08 and pCO2 was elevated at 58 wor sened to 92. Creatinine also worsened up to 2.7 and sodium 146., With worsening breathing patient had to be intubated and placed on mechanical ventilation 12/13 Patient remains in the ICU intubated and sedated His breathing more quiet today. Abdomen soft Hemoglobin dropped to 7.0. Platelet count stable at 139, creatinine stable or slightly improved 2.7 down to 2.6. Patient placed on normal saline 75 mL/h. 12/14 Patient remains intubated and sedated He does not need pressors and Zosyn was discontinued He received some IV fluid Chest x-ray still showing pulmonary vascular congestion Pathology from pleural fluid came back positive for malignancy Sister and at bedside, oncology team discussing the case with them. Patient still at risk. 12/15 Patient remains intubated on mechanical ventilation in the ICU Family yesterday discussed the case with oncology team and patient remains full code and he was started on chemotherapy. Imodium can be stopped Chest x-ray showing persistent right-sided infiltrate most likely secondary to fluid and malignancy. Prognosis remains guarded and patient still high risk 12/16 Patient remains intubated and sedated Patient has no events overnight He was getting chemotherapy No IV fluid, no antibiotic chest tube feeding, he got 1 dose of 80 mg of Lasix yesterday He has good urine output of about 15 to 20 mL/h Also has low-grade temperature 100.2 yesterday and 9.9 today. Repeat chest x-ray showing CHF for right pleural effusion which is malignant p leural effusion Patient continue to get chemotherapy through tomorrow Patient has negative C. diff test 12/17 Patient still getting chemotherapy His creatinine gets worse and he has hemodialysis catheter placed in He remains intubated in the ICU on mechanical ventilation Breathing rate about 27 Creatinine worse at 5.0. Phosphorus 12.7. Glucose controlled. pH 7.23 12/18 Patient remains in the ICU intubated and sedated. Patient is today finished his chemotherapy per oncology team. Today he is not getting chemotherapy there is another cycle in order for chemotherapy on 12/21. However patient today developing worsening hypotension requiring Levophed and also started on sodium bicarb. Potassium and creatinine trending up, currently 5.6 with a plan for hemodialysis per supervisor coal handling. Hemoglobin 7.0. Leukocytosis is increased but pH is low at 7.1. Chest x-ray showing same malignant pleural effusion. Prognosis tomy guarded 12/19/2024 Patient is seen in follow-up today continues in the ICU with multiple consultations following maintained on mechanical ventilation. Kidney functions are worsening with nephrology following and vascular surgery was consulted and dialysis catheter was placed. Patient scheduled to undergo hemodialysis today. Patient continues on pressor support which is being weaned and overall prognosis remains significantly guarded. Hemoglobin is stable today and being given a unit of PRBC. Will follow-up on repeat labs and monitor closely. 12/20/2024 Patient is seen and evaluated in the ICU continues to be on mechanical ventilation FiO2 is 35% with a PEEP of 5. Patient is undergoing sedation holidays and currently not following commands. Patient is receiving hemodialysis and kidney functions are improving although BUN remains elevated. Patient will receive dialysis again. Patient is making urine. Patient does have fecal management system and recommend C. difficile although stool was noted to be black and loose. Prognosis is extremely guarded at this time. 12/21/2024 Patient is seen in follow-up continues on mechanical ventilation with an FiO2 of 35% and PEEP is 5. Patient undergoing sedation holidays and does open eyes and eye track although significantly weak unable to follow commands. Patient with indwelling Escobar catheter monitoring intake and output and urine appears cloudy, will send urine for evaluation. Hemoglobin 7.1 and will likely need a unit of blood. Patient continued on hemodialysis and will possibly plan for unit of blood with next session of dialysis. Patient is afebrile and maintained on Zo syn and will continue. Low-dose pressor support remains at this time and weaning as tolerated. 12/22/2024 Patient is seen in follow-up today remains critically ill although showing some improvements. Patient is maintained on mechanical ventilation and not ready for weaning with chest x-ray showing pleural effusion recurrence and chest ultrasound was done with discussion of possible thoracentesis. Hemoglobin low and will be given a unit of blood and will discuss with oncology regarding treatment plans. Patient is ongoing chemotherapy at this time and prognosis remains extremely guarded. Patient is maintained on low-dose pressor support, continued IV Zosyn, and amiodarone drip as patient was found to be in atrial fibrillation with RVR last night. Multiple consultations following. Patient is mildly sedated on low-dose propofol although is awake tracking and following commands, extremely weak although is attempting to lift upper extremities. Patient will require extensive physical therapy. 12/25/2024 Patient is seen in follow-up today remains in the ICU with multiple medical consultations following. Neurology has been consulted and pending at this time for assessment of mentation. Patient is off sedation has been extubated successfully is maintained on 2 to 3 L via nasal cannula. Patient continues with renal failure with nephrology following undergoing hemodialysis. Currently on hold today. Urine output is cloudy and is being closely monitored off antibiotic therapy at this time. Overall prognosis is extremely poor and guarded at this time. Patient awaiting swallow eval and will continue n.p.o. for now. 12/26/2024 Patient is seen in follow-up more awake today on 3 L via nasal cannula currently sitting up in the chair. Patient is a downgrade out of the ICU once a bed becomes available. Multiple consultations following including nephrology and last hemodialysis was 12/23/2024 and holding dialysis for now showing clinical improvement and renal functions. Continued close monitoring of electrolytes and being replaced per protocol. Patient does have an NG tube for now and maintaining on tube feedings will reeval with speech once patient is more strong. Patient is afebrile at this time. Hemoglobin is stable above 8. 12/27/2024 Patient is seen in follow-up today out of the ICU on 3 S. doing somewhat better although continues to be extremely weak. Patient currently n.p.o. maintained on NG tube for now and attempting to avoid TPN. Speech therapy to reassess swallow. Patient is continued on chemotherapy treatment with oncology following. Kidney functions improving patient is making urine and creatinine 1.77 today to remove dialysis catheter. Vascular surgery consulted with nephrology following closely. Review of systems: Constitutional: reports of fatigue, no fever, or chills Cardiovascular: No reports of chest pain or palpitations Respiratory: No reports of shortness of breath, extremely weak cough GI: No reports of nausea, vomiting, or diarrhea, tolerating tube feeds : No reports of dysuria or retention, continues with indwelling Escobar catheter at this time for strict LADARIUS Neurovascular: reports of significant generalized weakness All medications have been reviewed Physical exam: GENERAL: The patient is a 79-year-old male who is alert and oriented x 2, more awake today, sitting up in the chair. Maintained on 3 L, well-developed, elderly appearing, ill-appearing HEENT: Pupils are round and equally reacting to light. EOMI. No scleral icterus. No conjunctival pallor. Normocephalic, atraumatic. No pharyngeal erythema. No t hyromegaly. CARDIOVASCULAR: S1 and S2 muffled, irregular, rate controlled PULMONARY: Breath sounds diminished bilaterally and congested, no wheezing , faint crackles at the bases. Tachypneic, decreased breath sounds on the right side ABDOMEN: Soft, nontender, nondistended, normoactive bowel sounds. No palpable organomegaly. MUSCULOSKELETAL: No joint swelling or deformity. EXTREMITIES: No cyanosis, clubbing, or pedal edema. NEUROLOGICAL: Gross neurological examination did not reveal any focal deficits. Diffusely weak SKIN: No rashes. no petechiae. Assessment: Acute hypoxic respiratory failure requiring intubation and mechanical ventilation status post successful extubation on 12/23/2024, currently on 3 L via nasal cannula Malignant large pleural effusion status post thoracocentesis. On 12/13 has breathing that worsened because of CHF and large pleural effusion and patient had to be placed on mechanical ventilation. Pathology sample came back positive for malignant cells Change in mental status, metabolic encephalopathy, undergoing neurological workup, improved at baseline Iatrogenic right pneumothorax status post Thora vent placement, which was removed on 12/13 Possible septic shock Acute kidney injury with worsening kidney functions, status post dialysis catheter placement requiring hemodialysis as of 12/19/2024, last hemodialysis 12/23/2024, catheter being removed today 12/27/2024 Multiple myeloma, s/p chemotherapy 12/15-12/17 Hypercalcemia Chronic anemia Hypertension Hyperlipidemia Obstructive sleep apnea A-fib and RVR, currently on amiodarone drip 12/22/2024 GI prophylaxis DVT prophylaxis Full code Plan: Patient has been moved out of the ICU yesterday on 3 S. with multiple consultations following Vascular surgery reconsulted and will be removing dialysis catheter with nephrology following closely. Patient failed swallow eval and currently has an NG tube with tube feeds and will continue for now. Reevaluate with speech as patient mentation is improving. Patient is extremely weak Patient is status post chemotherapy on 12/15-12/17. Oncology following Per patient's family, he would not want reintubation and CODE STATUS to be addressed as patient remains full code at this time Follow-up on repeat labs and replace electrolytes per protocol Recommend PT/OT therapy for evaluation and will need to discuss further regarding discharge planning. Patient is not ready for discharge at this time. Patient is extremely high risk for readmission given significant ongoing comorbidities. due to multiple complex medical issues, overall prognosis is extremely guarded a t this time The impression and plan of care has been dictated by Mildred Goff, Nurse Practitioner as directed. Dr. Keith MD I have performed a history and examination and MDM of this patient, discussed the same with the dictator, and agree with the dictator's assessment and plan as written ,documented as a scribe. Based on total visit time, I have performed more than 50% of the visit. Objective - Vital Signs Vital signs: Vital Signs Temp 96.9 F L 12/26/24 20:00 Pulse 73 12/27/24 03:30 Resp 16 12/27/24 03:30 BP 125/62 12/27/24 03:30 Pulse Ox 96 12/27/24 03:30 FiO2 35 12/23/24 12:00 Intake & Output 12/26/24 12/27/24 12/27/24 18:59 06:59 18:59 Intake Total 164 Output Total 975 950 Balance -811 -950 Weight 72.5 kg Intake: IV 34 .9 KVO 10 0.9 pressure bag 24 Tube Feeding 100 Other 30 Output: Urine 975 950 Other: Voiding Method Indwelling Catheter Indwelling Catheter # Bowel Movements 1 1 ABP, PAP, CO, CI - Last Documented Arterial Blood Pressure 113/36 - Labs CBC & Chem 7: 12/27/24 06:08 12/27/24 06:08 Labs: Abnormal Lab Results - Last 24 Hours (Table) 12/26/24 12/26/24 12/26/24 Range/Units 12:26 19:02 23:22 RBC 2.46 L (4.40-5.60) 10*6/uL Hgb 8.2 L (13.0-17.0) g/dL Hct 24.8 L (39.6-50.0) % MCV 100.8 H (80.0-97.0) fL MCH 33.3 H (27.0-32.0) pg Plt Count 79 L (140-440) 10*3/uL Immature Gran # 0.06 H (0.00-0.04) 10*3/uL Lymphocytes # 0.25 L (0.90-5.00) 10*3/uL Eosinophils # 0.00 L (0.04-0.35) 10*3/uL Carbon Dioxide (22-30) mmol/L BUN (9-20) mg/dL Creatinine (0.66-1.25) mg/dL Glucose (74-99) mg/dL POC Glucose (mg/dL) 113 H 111 H (70-110) mg/dL 12/26/24 12/27/24 12/27/24 Range/Units 23:22 00:00 06:05 RBC (4.40-5.60) 10*6/uL Hgb (13.0-17.0) g/dL Hct (39.6-50.0) % MCV (80.0-97.0) fL MCH (27.0-32.0) pg Plt Count (140-440) 10*3/uL Immature Gran # (0.00-0.04) 10*3/uL Lymphocytes # (0.90-5.00) 10*3/uL Eosinophils # (0.04-0.35) 10*3/uL Carbon Dioxide (22-30) mmol/L BUN 91 H (9-20) mg/dL Creatinine 1.87 H (0.66-1.25) mg/dL Glucose 119 H (74-99) mg/dL POC Glucose (mg/dL) 128 H 116 H (70-110) mg/dL 12/27/24 12/27/24 Range/Units 06:08 06:08 RBC 2.37 L (4.40-5.60) 10*6/uL Hgb 7.7 L (13.0-17.0) g/dL Hct 23.8 L (39.6-50.0) % MCV 100.4 H (80.0-97.0) fL MCH 32.5 H (27.0-32.0) pg Plt Count 78 L (140-440) 10*3/uL Immature Gran # (0.00-0.04) 10*3/uL Lymphocytes # 0.23 L (0.90-5.00) 10*3/uL Eosinophils # 0.00 L (0.04-0.35) 10*3/uL Carbon Dioxide 32 H (22-30) mmol/L BUN 91 H (9-20) mg/dL Creatinine 1.77 H (0.66-1.25) mg/dL Glucose 115 H (74-99) mg/dL POC Glucose (mg/dL) (70-110) mg/dL Microbiology - Last 24 Hours (Table) 12/25/24 13:22 Urine Culture - Final Urine,Voided
--- NOTE | 2024-12-27 22:22 | P.PN ---
Subjective Progress Note Date: 12/27/24 Principal diagnosis: Pleural effusion, MM In f/u today pt is is out of the ICU, he is sitting up in bed. He reports he is feeling really weak, he is still not able to take anything by mouth because of failed swallow eval. He is tolerating NG feedings, no nausea or vomiting. He has no acute complaints otherwise. Objective - Vital Signs Vital signs: Vital Signs Temp 97.4 F L 12/27/24 08:00 Pulse 70 12/27/24 12:41 Resp 16 12/27/24 08:00 BP 114/60 12/27/24 08:00 Pulse Ox 95 12/27/24 08:50 FiO2 35 12/23/24 12:00 Intake & Output 12/26/24 12/27/24 12/27/24 18:59 06:59 18:59 Intake Total 164 Output Total 975 950 Balance -811 -950 Weight 72.5 kg Intake: IV 34 .9 KVO 10 0.9 pressure bag 24 Tube Feeding 100 Other 30 Output: Urine 975 950 Other: Voiding Method Indwelling Catheter Indwelling Catheter Indwelling Catheter # Bowel Movements 1 1 ABP, PAP, CO, CI - Last Documented Arterial Blood Pressure 113/36 - Constitutional General appearance: Present: cooperative, no acute distress, thin - EENT Eyes: Present: anicteric sclerae, EOMI ENT: Present: hearing grossly normal - Respiratory Details: Respirations mildly labored at rest - Cardiovascular Details: Skin warm and dry to the touch, radial pulse 2+ - Neurologic Neurologic: Present: CNII-XII intact (Grossly) - Musculoskeletal Musculoskeletal: Present: generalized weakness - Psychiatric Psychiatric: Present: A&O x's 3 - Labs CBC & Chem 7: 12/27/24 06:08 12/27/24 06:08 Labs: Abnormal Lab Results - Last 24 Hours (Table) 12/26/24 12/26/24 12/26/24 Range/Units 19:02 23:22 23:22 RBC 2.46 L (4.40-5.60) 10*6/uL Hgb 8.2 L (13.0-17.0) g/dL Hct 24.8 L (39.6-50.0) % MCV 100.8 H (80.0-97.0) fL MCH 33.3 H (27.0-32.0) pg Plt Count 79 L (140-440) 10*3/uL Immature Gran # 0.06 H (0.00-0.04) 10*3/uL Lymphocytes # 0.25 L (0.90-5.00) 10*3/uL Eosinophils # 0.00 L (0.04-0.35) 10*3/uL Carbon Dioxide (22-30) mmol/L BUN 91 H (9-20) mg/dL Creatinine 1.87 H (0.66-1.25) mg/dL Glucose 119 H (74-99) mg/dL POC Glucose (mg/dL) 111 H (70-110) mg/dL 12/27/24 12/27/24 12/27/24 Range/Units 00:00 06:05 06:08 RBC 2.37 L (4.40-5.60) 10*6/uL Hgb 7.7 L (13.0-17.0) g/dL Hct 23.8 L (39.6-50.0) % MCV 100.4 H (80.0-97.0) fL MCH 32.5 H (27.0-32.0) pg Plt Count 78 L (140-440) 10*3/uL Immature Gran # (0.00-0.04) 10*3/uL Lymphocytes # 0.23 L (0.90-5.00) 10*3/uL Eosinophils # 0.00 L (0.04-0.35) 10*3/uL Carbon Dioxide (22-30) mmol/L BUN (9-20) mg/dL Creatinine (0.66-1.25) mg/dL Glucose (74-99) mg/dL POC Glucose (mg/dL) 128 H 116 H (70-110) mg/dL 12/27/24 12/27/24 Range/Units 06:08 11:29 RBC (4.40-5.60) 10*6/uL Hgb (13.0-17.0) g/dL Hct (39.6-50.0) % MCV (80.0-97.0) fL MCH (27.0-32.0) pg Plt Count (140-440) 10*3/uL Immature Gran # (0.00-0.04) 10*3/uL Lymphocytes # (0.90-5.00) 10*3/uL Eosinophils # (0.04-0.35) 10*3/uL Carbon Dioxide 32 H (22-30) mmol/L BUN 91 H (9-20) mg/dL Creatinine 1.77 H (0.66-1.25) mg/dL Glucose 115 H (74-99) mg/dL POC Glucose (mg/dL) 131 H (70-110) mg/dL Microbiology - Last 24 Hours (Table) 12/25/24 13:22 Urine Culture - Final Urine,Voided Assessment and Plan (1) Hypercalcemia Current Visit: Yes Status: Acute Priority: High Code(s): E83.52 - HYPERCALCEMIA SNOMED Code(s): 93789641 (2) [place] light chain myeloma Current Visit: Yes Status: Acute Priority: High Code(s): C90.00 - MULTIPLE MYELOMA NOT HAVING ACHIEVED REMISSION SNOMED Code(s): 494304145 Plan: 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 -Completed 7 cycles of RVD in May 2024 achieving very good partial response, 99% reduction in kappa light chain -Had been on maintenance Revlimid 10 mg daily, which he stopped taking September 2024 for unclear reasons, he then developed progressive disease and symptoms of weakness, MICKEY, anemia, and thrombocytopenia -Admitted with failure to thrive with weakness, dehydration -CTA ruled out PE but reported pleural-based nodules with large right sided p leural effusion, peritoneal carcinomatosis, and retroperitoneal lymphadenopathy -720cc Right-sided thoracentesis performed, post procedure pneumo, thoravent placed, now removed. Resp status stable -Pleural fluid positive for plasma cells -Pt was intubated for resp failure -He required elitek for TLS. He required DDAVP for bleeding -CyBorD started and pt is doing better. -Counts are stable, no transfusions needed today. -Renal function improving, no dialysis -Patient was strongly encouraged to start working with physical therapy. Patient needs to be up out of bed multiple times a day. Patient is going to need rehab. Will continue steroids weekly. All other treatment will be held until patient is discharged from rehab -Will cont to follow pt hospital course
--- NOTE | 2024-12-27 22:44 | PCN ---
PROCEDURE NOTE PROCEDURE PERFORMED: Removal of the dialysis catheter, right femoral approach. DESCRIPTION OF PROCEDURE: The patient was seen in his room. Right groin was prepped and stitches was removed and catheter was removed. Pressure dressing applied. The patient tolerated the procedure well. TAMMI / VERNON: [id number] /
[2024-12-28 00:04] LABS: Glucose,Whole Blood 134 mg/dL (70-110)
[2024-12-28 06:11] LABS: Glucose,Whole Blood 147 mg/dL (70-110)
[2024-12-28] MEDS ORDERED: ZINC OXIDE PASTE (Z-GUARD) 1 APPLIC TOPICAL PRN (06:24)
[2024-12-28 07:53] LABS: African American GFR (CKD) 47 (>60 ml/min/1.73 sqM); Anion Gap 6 mmol/L; Blood Urea Nitrogen 89 mg/dL (9-20); Calcium 8.8 mg/dL (8.4-10.2); Carbon Dioxide 33 mmol/L (22-30); Chloride 110 mmol/L (98-107); Glucose 137 mg/dL (74-99); Magnesium 1.5 mg/dL (1.6-2.3); Non-African American GFR(CKD) 40 (>60 ml/min/1.73 sqM); Potassium 3.2 mmol/L (3.5-5.1); Sodium 149 mmol/L (137-145)
--- NOTE | 2024-12-28 10:16 | P.PN ---
Subjective Patient is seen in follow-up for acute kidney injury. Extubated December 23, 2024. On IV Lasix. Nonoliguric. Receiving tube feeds. Required temporary dialysis this admission. Dialysis catheter removed December 27, 2024. Vital signs are stable. General: No resting in bed. HEENT: On nasal cannula. NG tube noted. LUNGS: No audible rhonchi or wheezes. HEART: Rate and Rhythm are regular. ABDOMEN: Nontender. EXTREMITITES: Trace edema. Objective - Vital Signs Vital signs: Vital Signs Temp 97.2 F L 12/28/24 08:58 Pulse 109 H 12/28/24 08:58 Resp 18 12/28/24 08:58 BP 101/59 12/28/24 08:58 Pulse Ox 98 12/28/24 08:58 FiO2 35 12/23/24 12:00 Intake & Output 12/27/24 12/28/24 12/28/24 18:59 06:59 18:59 Output Total 1550 1425 Balance -1550 -1425 Output: Urine 1500 1425 Stool 50 Other: Voiding Method Indwelling Catheter Indwelling Catheter # Bowel Movements 1 1 ABP, PAP, CO, CI - Last Documented Arterial Blood Pressure 113/36 - Labs CBC & Chem 7: 12/27/24 06:08 12/28/24 07:22 Labs: Abnormal Lab Results - Last 24 Hours (Table) 12/27/24 12/27/24 12/28/24 Range/Units 11:29 18:10 00:00 Sodium (137-145) mmol/L Potassium (3.5-5.1) mmol/L Chloride (98-107) mmol/L Carbon Dioxide (22-30) mmol/L BUN (9-20) mg/dL Creatinine (0.66-1.25) mg/dL Glucose (74-99) mg/dL POC Glucose (mg/dL) 131 H 135 H 134 H (70-110) mg/dL Magnesium (1.6-2.3) mg/dL 12/28/24 12/28/24 Range/Units 06:07 07:22 Sodium 149 H (137-145) mmol/L Potassium 3.2 L (3.5-5.1) mmol/L Chloride 110 H (98-107) mmol/L Carbon Dioxide 33 H (22-30) mmol/L BUN 89 H (9-20) mg/dL Creatinine 1.61 H (0.66-1.25) mg/dL Glucose 137 H (74-99) mg/dL POC Glucose (mg/dL) 147 H (70-110) mg/dL Magnesium 1.5 L (1.6-2.3) mg/dL Assessment and Plan Plan: Assessment: 1. Acute kidney injury secondary to ATN. No hydronephrosis noted on imaging. UA fairly benign. Started on hemodialysis December 19, 2024. Femoral catheter was exchanged December 23, 2024. Last dialysis treatment was December 23, 2024. Now nonoliguric. Creatinine 1.61 today. Creatinine in July 2024 was 0.8. 2. Hypernatremia from lack of oral water intake and free water diuresis. 3. Volume overload with pleural effusions. Improved with ultrafiltration and diuresis. 4. Multiple myeloma. On chemotherapy. 5. Hypercalcemia secondary to volume contraction as well as multiple myeloma. Improved. 6. Pneumonia s/p antibiotics. 7. Anemia. Due to underlying multiple myeloma. Status post IV iron. Has received blood transfusions this admission. 8. Metabolic acidosis secondary to acute kidney injury. Improved. 9. Hypokalemia from diuresis. 10. Hypomagnesemia from diuresis. Plan: Maintain IV Lasix. Decrease frequency to once daily. Start D5W at 80 cc an hour. Replace potassium and magnesium. Receiving tube feeds. Failed swallow eval. Repeat chest x-ray. Continue to monitor renal function and urine output. Prognosis guarded. No further need for renal replacement therapy. Dialysis catheter removed.
[2024-12-28] MEDS: POTASSIUM CHLORIDE ER 20 MEQ TAB.ER PO STA (10:27)
--- NOTE | 2024-12-28 10:59 | XR ---
EXAMINATION TYPE: XR chest 1V DATE OF EXAM: 12/28/2024 CLINICAL INDICATION: Male, 79 years old with history of sob, progress study. TECHNIQUE: Single AP portable upright view of the chest is obtained. COMPARISON: Chest x-ray from 2 days earlier FINDINGS: Stable nasogastric tube. Persistent small to moderate-sized right greater than left pleural effusions and diffuse right mid to lower lung increased opacity. Cardiac silhouette size stable and upper limits of normal. Central vas cular congestion is present. Surgical change to right humerus is partially imaged. IMPRESSION: Persistent small to moderate-sized right greater than left pleural effusions and right mi d to lower lung acute infiltrate and/or edema. No significant change from one day earlier. There is m ore prominent central vascular congestion. Correlate for fluid overload state. [facility], , 12/28/2024 10:57 AM
[2024-12-28 11:28] LABS: Glucose,Whole Blood 150 mg/dL (70-110)
[2024-12-28] MEDS: DEXTROSE 5% IN WATER 1,000 ML IV SCH (11:45)
[2024-12-28] MEDS: POTASSIUM BICARBONATE/CIT AC 20 MEQ TABLET.EFF NG-TUBE SCH (11:46)
[2024-12-28 12:06] LABS: HCT 24.5 % (39.6-50.0); HGB 8.2 g/dL (13.0-17.0); MCH 34.7 pg (27.0-32.0); MCHC 33.5 g/dL (32.0-37.0); MCV 103.8 fL (80.0-97.0); Mean Platelet Volume 12.9 fL (9.5-12.2); RBC 2.36 10*6/uL (4.40-5.60); RDW 16.5 % (11.5-14.5); WBC 8.41 10*3/uL (4.50-10.00)
[2024-12-28] MEDS: CHOLESTYRAMINE (WITH SUGAR) 4 GM PACKET PO SCH (12:08)
[2024-12-28] MEDS: MAGNESIUM SULFATE-D5W PMX 1 GM in DEXTROSE/WATER 1 100ML.BAG IVPB SCH (12:09)
[2024-12-28 12:34] LABS: Platelet Count 71 10*3/uL (140-440)
--- NOTE | 2024-12-28 13:31 | P.PN ---
Subjective Progress Note Date: 12/28/24 Principal diagnosis: Acute hypoxic respiratory failure with large right-sided pleural effusion, multiple myeloma, Patient is a 79-year-old male with past medical history significant for hypertension, hyperlipidemia, KYM, multiple myeloma. His PCP is Dr. Jaimes. Also, follows with his oncologist Dr. Broderick. Patient had a bone marrow biopsy back on 11/11/2023 which was positive for multiple myeloma. Previously on systemic treatment, which he had stopped, apparently confused on whether he should continue the medication. Patient sent in by his oncologist yesterday for abnormal labs. On arrival, complaining of increased work of breathing over the last month. Occasional cough with mucus and occasional blood tinge. Workup in the ED including a chest CT angio which did not show any definite acute central pulmonary embolism, but technically limited due to suboptimal timing of contrast bolus. Overall, findings were consistent with disease progression. There was extensive soft tissue pleural metastatic deposits throughout bilateral lung henderson right greater than left. Extensive pleural metastatic disease in the left apex with involvement of the left first, second, and third ribs. Large right-sided pleural effusion and trace left-sided pleural effusion. Partially visualized upper abdomen demonstrating peritoneal carcinomatosis with large soft tissue implant in the left retroperitoneum measuring 6.4 x 4.1 cm. Bilateral hydronephrosis partially visualized. Enlarged retroperitoneal lymph node. Extensive osteolytic lesions throughout the visualized axial and appendicular skeleton compatible with osseous metastatic disease. CBC: WBC count 3.8, hemoglobin 9, platelets 134. CMP: Sodium 142, potassium 4, chloride 107, serum bicarb 21, BUN 40, creatinine 1.4, glucose 103. Lactic 1.2. Ionized calcium 5.4, magnesium 1.4, phosphorus 3.7. LFTs not elevated. Troponin 0.018. NT proBNP 1550. Viral screen negative for influenza, RSV, COVID. Patient currently being seen on the oncology floor. He is awake and alert, on 3 L/min nasal cannula, tachypneic in the mid 20s per minute. States he has been progressively more short of breath over the last month. States he uses 2 L supplemental oxygen hooked to his CPAP at bedtime. Denies chest pain, heart palpitations, lightheadedness or syncopal events, lower extremity edema. Does report occasional productive cough with brown mucus and occasional blood tinge. Denies any fevers, chills, chest pain, olivia hemoptysis. Denies known sick contacts. Appetite has been poor. Denies abdominal pain, nausea, vomiting, diarrhea, melena, hematochezia. Denies anticoagulant use. Denies history of previous thoracentesis. Patient was empirically covered on a combination of Zosyn and Levaquin in the ED. Current vital signs: Temperature 97.9 F, heart rate 100 bpm, blood pressure 145/66 mmHg, SpO2 recorded at 94% on 2 L/min nasal cannula. Patient was seen today on 12/07/2024, I had to move the patient earlier this morning to ICU as his right-sided pneumothorax showed some progression went from 10% to 30% overnight. Came into the ICU, and placed a Thora vent, 13 Nepali in the right pleural space with complete resolution of his right-sided pneumothorax. And more bloody effusion was drained through the Thora vent shortly after the Thora vent was placed. Again there was complete resolution of his pneumothorax, and almost near complete resolution of his pleural effusion which was bloody all along. Patient is now on 4 L nasal cannula, in no distress, he is off heparin, and considering the bloody effusion, I will hold on anticoagulation therapy for now. Patient remains on amiodarone, bron chodilators/updrafts, he is also on Zosyn and Levaquin empirically. WBC count is 4.4 hemoglobin 8.5 electrolytes are normal BUN is 33 creatinine 1.74. The fluid I drained yesterday is clearly exudative with high LDH of 1400 and protein more than 3600 this is likely consistent with malignant pleural effusion most likely related to his multiple myeloma. Patient was seen today on 12/08/2024, remains in the ICU, continues to have Thora vent in place, patient had over 1200 cc of bloody effusion drained over the last 24 hours, and prior to this I have drained over 700 cc initially and the fluid was also bloody. This is most likely a pleural effusion related to multiple myeloma, cytology is pending. Patient remains empirically on antibiotics, however I went ahead and discontinued Levaquin on this patient, and I kept him on Zosyn as he seems to be developing some worsening of his renal status, patient is clinically dry dehydrated, and I am recommending increase of his IV fluid. Hemoglobin is 7.7 WBC count is 4.7 electrolytes are normal however creatinine went up to 1.92 from 1.74 yesterday, baseline on admission was 1.40. Patient remains off heparin mostly because of his bloody effusion, patient is on 3 L nasal cannula with O2 sats of 96%. Chest x-ray today was reviewed, I did not truly appreciate a pneumothorax on the chest x-ray today, and hardly any air leak is noted. Patient was seen today on 12/09/2024, remains in the ICU, continues to have Thora vent in place, and connected to Pleur-evac. No airleak is noted, minimal drainage overnight, less than 50 cc. No further air leak is noted, hence I went ahead and disconnected the Thora vent from Pleur-evac, and applied the one-way valve on the Thora vent. Patient is doing well, relatively asymptomatic, remains on IV fluid at 75 cc/h with slight improvement in his renal status, renal ultrasound showed no evidence of hydronephrosis. Patient remains on Zosyn, Eliquis is on hold, he is also on Seroquel. Chest x-ray will be repeated sometime later today to make sure the patient does not have any expansion of pneumothorax in the right lung. Continues to have some right lower lobe consolidation,, patient remains on antibiotics. The results on the pleural effusion are pending especially the cytology, the protein in the pleural effusion and the LDH suggest that it is malignant unless proven otherwise., It is definitely exudative. WBC count is 4.5 hemoglobin 7.4 electrolytes are normal BUN is 41 creatinine 1.75. Platelets are 1 27,000. Seen today on 12/10/2024, patient is now on medical floor, very comfortable, on 3 L nasal cannula, not in distress. Patient is hemodynamically stable blood pressure is 128/65, heart rate is 84, patient is afebrile. Temp is 97.6. Chest x-ray this morning was read by the ER physician as a left-sided pneumothorax which I reviewed myself, and I fully disagreed with the reading, this would have been a spontaneous left-sided pneumothorax, however follow-up chest x-ray was done and there was no evidence of pneumothorax on the left side. But both x- rays did reflect evidence of fluid overload and pulmonary edema with bilateral pleural effusions, has I recommended diuresing the patient further today. Yesterday he responded well to Lasix, and I am recommending another dose of Lasix 40 mg IV push to be given today. His Thora vent remains off suction, but he does have the one-way valve/occluding valve. And there is no evidence of pneumothorax on the right side. But again I believe the patient is building bilateral pleural effusions again. Cytology from his pleural effusion which I drained back on 12/07 is still pending I expect it to be related to multiple my eloma. Labs today showed relatively normal electrolytes BUN is 31 creatinine is up to 1.82 12/23/2024, the patient is still intubated on the mechanical ventilator. Awake and communicating. Slightly better and improvement in motor functions compared to yesterday. He remains on propofol running at 50 mcg/kg/min. He is off norepinephrine. Cardiac rhythm is back into sinus rhythm and the patient remains on amiodarone 0.5 mg/min. He is on assist-control mode at rate of 20, tidal volume of 550, FiO2 of 35% with a PEEP of 5. Blood gas showed a pH of 7.4 with a pCO2 of 32 and pO2 of 90. Started on vital HP at rate of 20 cc an hour. Urine output remains low. Undergoing hemodialysis and last session was yesterday. Dialysis catheter needs to be replaced as the catheter itself is functioning. Chest x-ray shows a right-sided pleural effusion and ongoing right lung consolidation. Ultrasound also showed the presence of a right-sided pleural effusion. Left lung remains essentially clear. The white cell count of 8.7, hemoglobin 7.9 and a platelet count of 64. Sodium is at 136, potassium is at 4.1, bicarb is at 18, BUN is 89 with a creatinine of 3.03. Glucose at 126. Patient was taken off sedation. Weaning parameters were done and the patient showed a rapid shallow breathing index of 77. The NIF was 18, FVC was 1.2 L, tidal volume was 413. Following that, the patient was given a pressure support of 5 and a PEEP of 5 and a subsequent blood gas showed a pH of 7.39 with a pCO2 of 33 and pO2 of 108. 12/24/2024, the patient remains extubated on 3 L of oxygen by nasal cannula. Awake and alert and communicating. He is profoundly weak. Adequate cough. Urine output in the order of 20 cc an hour. Underwent hemodialysis yesterday with a total of 1.5 L of ultrafiltration. Cardiac rhythm is sinus. Diarrhea has subsided. Remains on IV Zosyn. No other significant events overnight. Blood work shows white cell count of 8.8, hemoglobin of 7 and a platelet count of 50. Sodium is at 133, K is at 3.5, BUN is 56 with a creatinine of 2.3 4 Patient was seen today on 12/25/2024, remains in the ICU, patient was extubated on 12/23/24, tolerated extubation well. Patient remains in the ICU, he is on 3 L nasal cannula, patient is on IV fluid at 0.9 normal saline 10 cc/h. Patient remains on Velcade Cytoxan and Decadron, as per her hematology/oncology. Patient seems to be a bit confused, has I recommended your evaluation, apparently has been confused for the last few days, and I could not assess CODE STATUS with the patient himself. Supposed to have hemodialysis today, patient has received a total of 4 units of packed RBCs since admission, and considering may have to put a nasogastric tube in this patient with platelets are 50,000, may have to give him 2 units of platelets prior to nasogastric tube placement. Will have a swallow evaluation, if he fails the swallow evaluation, then he needs to have a nasogastric tube placed or have to use TPN. I prefer. Enteral feeding over TPN feeding. Labs today WBC count is 11.4 hemoglobin 7.4 electrolytes are normal BUN is 73 creatinine 2.65. Chest x-ray showed small to moderate right-sided pleural effusion and small left pleural effusion with some component of edema, not much of a change in the x-ray today compared to the day prior. Patient was seen today on12/26/24, remains in the ICU, basically about the same, mentation seems to be a little bit better compared to yesterday. Patient seems to be a bit more oriented, on 2 L nasal cannula, he had a nasogastric tube placed yesterday, and he is receiving enteral feeding. Patient still did not pass his swallow evaluation and he is to have another repeat swallow evaluation study tomorrow. He is on vital AF at 40 cc/h. Patient is being fed via nasogastric tube. Chest x-ray continues to show right-sided pleural effusion WBC count is 6.9 hemoglobin 7.5 platelets today are 85,000. Electrolytes are normal BUN is 87 creatinine 2.43. Patient is on Lasix, did not require hemodialysis yesterday. Patient was seen today on 12/27/2024, patient was transferred yesterday out of the ICU, he is now on the medical floor, doing fairly well, remains confused, on 2 L nasal cannula, O2 sats is 94%. WBC count is 7.9 hemoglobin is 7.7 electrolytes are normal BUN is 91 creatinine improving down to 1.77 Patient was seen today on 12/28/2024, patient is doing fairly well considering his multiple complex issues and comorbidities. On nasal cannula on enteral feeding via nasogastric tube, patient looks frail and chronically ill. But not in any respiratory distress. His dialysis catheter has been removed since the patient has not required any dialysis for the last 5 days and his renal function is improving, patient is making urine with diuretics. WBC count is 8.4 hemoglobin 8.2 sodium is 149 hence will liberalize free water via nasogastric tube to this patient. Potassium 3.2 BUN is 89 creatinine 1.61. Patient feels generally weak, denies any shortness of breath no cough no wheezing. Objective - Vital Signs Vital signs: Vital Signs Temp 97.0 F L 12/28/24 11:58 Pulse 111 H 12/28/24 11:58 Resp 20 12/28/24 11:58 BP 96/56 12/28/24 11:58 Pulse Ox 92 L 12/28/24 11:58 FiO2 35 12/23/24 12:00 Intake & Output 12/27/24 12/28/24 12/28/24 18:59 06:59 18:59 Intake Total 10 Output Total 1550 1425 Balance -1550 -1425 10 Intake: IV 10 Invasive Line 5 10 Output: Urine 1500 1425 Stool 50 Other: Voiding Method Indwelling Catheter Indwelling Catheter Indwelling Catheter # Bowel Movements 1 1 1 ABP, PAP, CO, CI - Last Documented Arterial Blood Pressure 113/36 - Exam GENERAL EXAM: Revealed 79-year-old white male in no distress, on 2 L nasal cannula not in distress, O2 saturation 92% HEAD: Normocephalic and atraumatic, EYES: Normal reaction of pupils, equal size. NOSE: Clear with pink turbinates. Nasogastric tube in place in the left nares THROAT: No erythema or exudates. NECK: No masses, no JVD. CHEST: No chest wall deformity. Diminished breath sounds at the right base otherwise unremarkable LUNGS: Diminished breath sound bilaterally with crackles no rhonchi no wheezes CVS: S1 and S2 normal with no audible murmur, regular rhythm. No extra heart sounds ABDOMEN: No hepatosplenomegaly, active bowel sounds, no guarding or rigidity. SKIN: No rashes CENTRAL NERVOUS SYSTEM less confusion today, no gross focal deficit EXTREMITIES: No clubbing, trace of bipedal edema no cyanosis - Labs CBC & Chem 7: 12/28/24 07:22 12/28/24 07:22 Labs: Abnormal Lab Results - Last 24 Hours (Table) 12/27/24 12/28/24 12/28/24 Range/Units 18:10 00:00 06:07 RBC (4.40-5.60) 10*6/uL Hgb (13.0-17.0) g/dL Hct (39.6-50.0) % MCV (80.0-97.0) fL MCH (27.0-32.0) pg Plt Count (140-440) 10*3/uL MPV (9.5-12.2) fL Sodium (137-145) mmol/L Potassium (3.5-5.1) mmol/L Chloride (98-107) mmol/L Carbon Dioxide (22-30) mmol/L BUN (9-20) mg/dL Creatinine (0.66-1.25) mg/dL Glucose (74-99) mg/dL POC Glucose (mg/dL) 135 H 134 H 147 H (70-110) mg/dL Magnesium (1.6-2.3) mg/dL 12/28/24 12/28/24 12/28/24 Range/Units 07:22 07:22 11:26 RBC 2.36 L (4.40-5.60) 10*6/uL Hgb 8.2 L (13.0-17.0) g/dL Hct 24.5 L (39.6-50.0) % MCV 103.8 H (80.0-97.0) fL MCH 34.7 H (27.0-32.0) pg Plt Count 71 L (140-440) 10*3/uL MPV 12.9 H (9.5-12.2) fL Sodium 149 H (137-145) mmol/L Potassium 3.2 L (3.5-5.1) mmol/L Chloride 110 H (98-107) mmol/L Carbon Dioxide 33 H (22-30) mmol/L BUN 89 H (9-20) mg/dL Creatinine 1.61 H (0.66-1.25) mg/dL Glucose 137 H (74-99) mg/dL POC Glucose (mg/dL) 150 H (70-110) mg/dL Magnesium 1.5 L (1.6-2.3) mg/dL Assessment and Plan Assessment: Impression: Acute hypoxemic respiratory failure, multifactorial Status post right-sided thoracentesis with right-sided iatrogenic pneumothorax requiring Thora vent placement however this was removed after a few days without any residual effect. Large right-sided pleural effusion, most likely secondary to multiple myeloma, bloody effusion. Multiple myeloma, chest CT angio concerning for disease progression Atrial fibrillation with RVR, being addressed by cardiology Tumor lysis syndrome resolved Acute kidney injury, with bilateral hydronephrosis, on hemodialysis Hypercalcemia, ionized calcium 5.4 Chronic anemia Hypertension History of hyperlipidemia History of obstructive sleep apnea with CPAP Acute metabolic encephalopathy Recommendation: Continue oxygen and titrate accordingly Continue incentive spirometry, and hopefully ambulate if possible Continue present supportive care measures Continue chemotherapy as per oncology on the case Continue amiodarone Patient will need placement in rehab May need repeat swallow evaluation and decide on enteral feeding and whether the patient will need a PEG tube placement Continue to hold anticoagulation treatment Overall prognosis remains extremely poor and guarded, patient remains marginal at best. And prognosis is poor. Will continue to follow Time with Patient: Less than 30
[2024-12-28 13:51] VITALS: BMI 21.7
--- NOTE | 2024-12-28 15:38 | P.PN ---
Subjective Progress Note Date: 12/28/24 patient is 79-year-old gentleman with past medical history significant for multiple myeloma, hypertension, hyperlipidemia presented to the ER because of abnormal labs. Patient normally sees Dr. Broderick and was on systemic treatment which apparently had stopped taking. Patient had blood work drawn outpatient and was told by the class 1 owner operator to come to the ER. Patient states over the last couple of days he has been having increasing shortness of breath. Shortness of breath was present at rest as on exertion. Patient was complaining of being lethargic and weakness. Patient also complaining of productive cough with occasional episodes of hemoptysis. Denies any chest pain. There is no complaint of fever or chills. There is no complaint of orthopnea or PND. Patient denies any nausea, vomiting, pain. Patient denies any lightheaded or dizziness. Initial lab work done in the ER showed WBC 3.8, hemoglobin 9, platelet count 134 sodium 142, potassium 4, BUN 40, creatinine 1.40 glucose 103, lactate 1.2, calcium 10.5, magnesium 1.4 bilirubin 0.7, AST 27, ALT 11, troponin 0.018, proBNP 1550 Influenza A not detected Influenza B not detected RSV not detected COVID-19 not detected EKG done in the ER showed heart rate of , no ST segment elevation or depression seen, no T-wave inversions seen. Chest x-ray done in the ER showed patchy infiltrative opacity throughout the right lung with small to moderate size right pleural effusion. Questionable air-fluid level versus overlying skinfold is indeterminate for cavitary lesion or abscess. Recommend CT chest for further evaluation, consolidation in the left lung apex CT chest PE protocol done showed no definite acute PE within the vasculature, significant progression of metastatic disease with numerous pleural-based metastatic deposits and involvement of the left-sided ribs additionally there is peritoneal carcinomatosis in the partially visualized upper abdomen. Patient admitted to internal medicine service 12/07. Patient seen and examined. Status post right-sided thoracentesis with removal of 720 cc of fluid. Blood work done today showed WBC 4.9, hemoglobin 8.8, platelet count 138, sodium 143, potassium 4.1, BUN 33, creatinine 1.74, calcium 9.7 Patient had right-sided Thora vent placed this morning. Currently on 4 L of oxy gen. 12/08. Patient seen and examined. Vital signs done this morning showedTemp 98, heart rate 98, respirations 30, blood pressure 125/84, currently on 2 L of oxygen. Denies any shortness of breath at rest. Currently has a Thora vent in place. Chest x-ray done this morning shows right-sided pleural effusion, right- sided chest tube in place with residual pneumothorax. 12/09. Old male patient currently sleeping, he was agitated and restless overnight and he was prescribed Seroquel 25 mg which made him calm He still tachypneic with a breathing rate around 28, he is saturating high 90s on 3 L oxygen via nasal cannula Hemoglobin slightly trending down to 7.7 and creatinine up to 1.9 His proBNP is 1550 and procalcitonin negative at 0.16 Chest x-ray reviewed by myself showing right more than left infiltrate but looks better than 2 days ago Renal ultrasound showing no hydronephrosis finger right renal cyst He is currently kept on Zosyn. On home dose of Eliquis 2.5 mg. He had pneumothorax on the right side status post Thora vent, currently he has minimal discharge from his right Thora vent 12/10 Patient moved out of the ICU to select unit He is more awake today but still confused, he was trying to pull out his lines and Thora vent. He is mildly tachypneic with talking. He can tell he is in the hospital but also still mildly confused. Serevent was Today. Repeat chest x-ray showing mild improvement in the right pneumothorax, I reviewed the chest x-ray by myself. He remains on Zosyn and home dose of Eliquis 2.5 Will going to add small dose of Seroquel 12.5. 12/11 Patient more awake trying to talk Still feel short of breath although slightly better than yesterday, breathing r ate around 22 compared to 28 yesterday, his right upper chest Thora vent is in place and capped Repeat chest x-ray this morning showing right pleural effusion more than left with pulmonary vascular congestion suspicious for CHF. Currently patient off IV fluid He is on Zosyn and Eliquis 2.5 mg. 12/12 Patient in the morning was awake and alert but slightly agitated, he had a sitter at bedside. Thora vent was taken out after it was capped yesterday. His mentation was getting worse through the day and he became more tachypneic and tachycardic and he has to be placed on BiPAP. Repeat chest x-ray showing moderate to large right pleural effusion and evidence of CHF. Patient was moved to the ICU for more monitoring pH was 7.2 worsening to equipment planner to 7.08 and pCO2 was elevated at 58 wor sened to 92. Creatinine also worsened up to 2.7 and sodium 146., With worsening breathing patient had to be intubated and placed on mechanical ventilation 12/13 Patient remains in the ICU intubated and sedated His breathing more quiet today. Abdomen soft Hemoglobin dropped to 7.0. Platelet count stable at 139, creatinine stable or slightly improved 2.7 down to 2.6. Patient placed on normal saline 75 mL/h. 12/14 Patient remains intubated and sedated He does not need pressors and Zosyn was discontinued He received some IV fluid Chest x-ray still showing pulmonary vascular congestion Pathology from pleural fluid came back positive for malignancy Sister and at bedside, oncology team discussing the case with them. Patient still at risk. 12/15 Patient remains intubated on mechanical ventilation in the ICU Family yesterday discussed the case with oncology team and patient remains full code and he was started on chemotherapy. Imodium can be stopped Chest x-ray showing persistent right-sided infiltrate most likely secondary to fluid and malignancy. Prognosis remains guarded and patient still high risk 12/16 Patient remains intubated and sedated Patient has no events overnight He was getting chemotherapy No IV fluid, no antibiotic chest tube feeding, he got 1 dose of 80 mg of Lasix yesterday He has good urine output of about 15 to 20 mL/h Also has low-grade temperature 100.2 yesterday and 9.9 today. Repeat chest x-ray showing CHF for right pleural effusion which is malignant p leural effusion Patient continue to get chemotherapy through tomorrow Patient has negative C. diff test 12/17 Patient still getting chemotherapy His creatinine gets worse and he has hemodialysis catheter placed in He remains intubated in the ICU on mechanical ventilation Breathing rate about 27 Creatinine worse at 5.0. Phosphorus 12.7. Glucose controlled. pH 7.23 12/18 Patient remains in the ICU intubated and sedated. Patient is today finished his chemotherapy per oncology team. Today he is not getting chemotherapy there is another cycle in order for chemotherapy on 12/21. However patient today developing worsening hypotension requiring Levophed and also started on sodium bicarb. Potassium and creatinine trending up, currently 5.6 with a plan for hemodialysis per caramel cutter machine. Hemoglobin 7.0. Leukocytosis is increased but pH is low at 7.1. Chest x-ray showing same malignant pleural effusion. Prognosis tomy guarded 12/19/2024 Patient is seen in follow-up today continues in the ICU with multiple consultations following maintained on mechanical ventilation. Kidney functions are worsening with nephrology following and vascular surgery was consulted and dialysis catheter was placed. Patient scheduled to undergo hemodialysis today. Patient continues on pressor support which is being weaned and overall prognosis remains significantly guarded. Hemoglobin is stable today and being given a unit of PRBC. Will follow-up on repeat labs and monitor closely. 12/20/2024 Patient is seen and evaluated in the ICU continues to be on mechanical ventilation FiO2 is 35% with a PEEP of 5. Patient is undergoing sedation holidays and currently not following commands. Patient is receiving hemodialysis and kidney functions are improving although BUN remains elevated. Patient will receive dialysis again. Patient is making urine. Patient does have fecal management system and recommend C. difficile although stool was noted to be black and loose. Prognosis is extremely guarded at this time. 12/21/2024 Patient is seen in follow-up continues on mechanical ventilation with an FiO2 of 35% and PEEP is 5. Patient undergoing sedation holidays and does open eyes and eye track although significantly weak unable to follow commands. Patient with indwelling Escobar catheter monitoring intake and output and urine appears cloudy, will send urine for evaluation. Hemoglobin 7.1 and will likely need a unit of blood. Patient continued on hemodialysis and will possibly plan for unit of blood with next session of dialysis. Patient is afebrile and maintained on Zo syn and will continue. Low-dose pressor support remains at this time and weaning as tolerated. 12/22/2024 Patient is seen in follow-up today remains critically ill although showing some improvements. Patient is maintained on mechanical ventilation and not ready for weaning with chest x-ray showing pleural effusion recurrence and chest ultrasound was done with discussion of possible thoracentesis. Hemoglobin low and will be given a unit of blood and will discuss with oncology regarding treatment plans. Patient is ongoing chemotherapy at this time and prognosis remains extremely guarded. Patient is maintained on low-dose pressor support, continued IV Zosyn, and amiodarone drip as patient was found to be in atrial fibrillation with RVR last night. Multiple consultations following. Patient is mildly sedated on low-dose propofol although is awake tracking and following commands, extremely weak although is attempting to lift upper extremities. Patient will require extensive physical therapy. 12/25/2024 Patient is seen in follow-up today remains in the ICU with multiple medical consultations following. Neurology has been consulted and pending at this time for assessment of mentation. Patient is off sedation has been extubated successfully is maintained on 2 to 3 L via nasal cannula. Patient continues with renal failure with nephrology following undergoing hemodialysis. Currently on hold today. Urine output is cloudy and is being closely monitored off antibiotic therapy at this time. Overall prognosis is extremely poor and guarded at this time. Patient awaiting swallow eval and will continue n.p.o. for now. 12/26/2024 Patient is seen in follow-up more awake today on 3 L via nasal cannula currently sitting up in the chair. Patient is a downgrade out of the ICU once a bed becomes available. Multiple consultations following including nephrology and last hemodialysis was 12/23/2024 and holding dialysis for now showing clinical improvement and renal functions. Continued close monitoring of electrolytes and being replaced per protocol. Patient does have an NG tube for now and maintaining on tube feedings will reeval with speech once patient is more strong. Patient is afebrile at this time. Hemoglobin is stable above 8. 12/27/2024 Patient is seen in follow-up today out of the ICU on 3 S. doing somewhat better although continues to be extremely weak. Patient currently n.p.o. maintained on NG tube for now and attempting to avoid TPN. Speech therapy to reassess swallow. Patient is continued on chemotherapy treatment with oncology following. Kidney functions improving patient is making urine and creatinine 1.77 today to remove dialysis catheter. Vascular surgery consulted with nephrology following closely. 12/28/2024 Patient is seen in follow-up today with multiple consultations following. Speech reevaluated the patient again and continues to fail swallow at this time and is continued on NG tube. Discussing possible PICC line and TPN or possible need for PEG tube. Patient does have secretions and is able to clear them somewhat. Patient is continued on breathing treatments and will continue. Patient continues on 2 L of oxygen via nasal cannula. Hemoglobin is stable today at 8.2 and white count remains normal at 8.41, platelets are 71. Sodium is 149 with a potassium of 3.2, BUN is 89 with a creatinine of 1.61 which is improved and patient is now maintained off dialysis. Patient has been transitioned to D5 and water and will follow-up on repeat labs in the a.m. Patient is being started on IV Lasix daily as patient does continue to be significantly overloaded. Bilateral upper extremity swelling is noted with slight improvement. Patient is weak and reporting discomfort in the NG tube. Patient would benefit from daily PT/OT therapy. Review of systems: Constitutional: reports of fatigue, no fever, or chills Cardiovascular: No reports of chest pain or palpitations Respiratory: No reports of worsening shortness of breath, extremely weak cough GI: No reports of nausea, vomiting, or diarrhea, tolerating tube feeds, repo rting discomfort with NG tube : No reports of dysuria or retention, continues with indwelling Escobar catheter at this time for strict I&O Neurovascular: reports of significant generalized weakness All medications have been reviewed Physical exam: GENERAL: The patient is a 79-year-old male who is alert and oriented x 2, more awake today. Maintained on 3 L, well-developed, elderly appearing, ill- appearing HEENT: Pupils are round and equally reacting to light. EOMI. No scleral icterus. No conjunctival pallor. Normocephalic, atraumatic. No pharyngeal erythema. No thyromegaly. CARDIOVASCULAR: S1 and S2 muffled, irregular, rate controlled PULMONARY: Breath sounds diminished bilaterally and congested, no wheezing , faint crackles at the bases. decreased breath sounds on the right side ABDOMEN: Soft, nontender, nondistended, normoactive bowel sounds. No palpable organomegaly. MUSCULOSKELETAL: No joint swelling or deformity. EXTREMITIES: No cyanosis, clubbing, or pedal edema. NEUROLOGICAL: Gross neurological examination did not reveal any focal deficits. Diffusely weak SKIN: No rashes. no petechiae. Assessment: Acute hypoxic respiratory failure requiring intubation and mechanical ventilation status post successful extubation on 12/23/2024, currently on 3 L via nasal cannula Malignant large pleural effusion status post thoracocentesis. On 12/13 has breathing that worsened because of CHF and large pleural effusion and patient had to be placed on mechanical ventilation. Pathology sample came back positive for malignant cells Change in mental status, metabolic encephalopathy, undergoing neurological workup, improved at baseline Iatrogenic right pneumothorax status post Thora vent placement, which was removed on 12/13 Possible septic shock Acute kidney injury with worsening kidney functions, status post dialysis catheter placement requiring hemodialysis as of 12/19/2024, last hemodialysis 12/23/2024, catheter has been removed today 12/27/2024 Multiple myeloma, s/p chemotherapy 12/15-12/17, currently undergoing treatment during hospitalization Hypercalcemia Chronic anemia Hypertension Hyperlipidemia Obstructive sleep apnea A-fib and RVR, currently on amiodarone drip 12/22/2024 GI prophylaxis DVT prophylaxis Full code Plan: Patient has been moved out of the ICU yesterday on 3 S. with multiple consultations following. Plan will be for transferring to 5 N. for further o ncological care and will continue telemetry monitoring Vascular surgery has removed the dialysis catheter with nephrology following closely. Sodium is 149 today and is maintained on D5 and water and will follow- up on repeat labs. Replace potassium as it is also 3.2, creatinine is 1.61 today. Patient failed swallow eval and reevaluation today he continues to be unable to swallow. Currently has an NG tube with tube feeds and will continue for now. Will discuss further with possible PICC line for TPN and/or possible PEG tube placement Patient is status post chemotherapy on 12/15-12/17. Oncology following Per patient's family, he would not want reintubation and CODE STATUS to be addressed as patient remains full code at this time Recommend PT/OT therapy for evaluation and will need to discuss further regarding discharge planning. Patient is not ready for discharge at this time. Patient is extremely high risk for readmission given significant ongoing comorbidities. The impression and plan of care has been dictated by Mildred Goff, Nurse Practitioner as directed. Dr. Anahi MD I have performed a history and examination and MDM of this patient, discussed the same with the dictator, and agree with the dictator's assessment and plan as written ,documented as a scribe. Based on total visit time, I have performed more than 50% of the visit. Objective - Vital Signs Vital signs: Vital Signs Temp 97.0 F L 12/28/24 11:58 Pulse 111 H 12/28/24 11:58 Resp 20 12/28/24 11:58 BP 96/56 12/28/24 11:58 Pulse Ox 92 L 12/28/24 11:58 FiO2 35 12/23/24 12:00 Intake & Output 12/27/24 12/28/24 12/28/24 18:59 06:59 18:59 Intake Total 20 Output Total 1550 1425 Balance -1550 -1425 20 Weight 72.5 kg Intake: IV 20 Invasive Line 5 20 Output: Urine 1500 1425 Stool 50 Other: Voiding Method Indwelling Catheter Indwelling Catheter Indwelling Catheter # Bowel Movements 1 1 1 ABP, PAP, CO, CI - Last Documented Arterial Blood Pressure 113/36 - Labs CBC & Chem 7: 12/28/24 07:22 12/28/24 07:22 Labs: Abnormal Lab Results - Last 24 Hours (Table) 12/27/24 12/28/24 12/28/24 Range/Units 18:10 00:00 06:07 RBC (4.40-5.60) 10*6/uL Hgb (13.0-17.0) g/dL Hct (39.6-50.0) % MCV (80.0-97.0) fL MCH (27.0-32.0) pg Plt Count (140-440) 10*3/uL MPV (9.5-12.2) fL Sodium (137-145) mmol/L Potassium (3.5-5.1) mmol/L Chloride (98-107) mmol/L Carbon Dioxide (22-30) mmol/L BUN (9-20) mg/dL Creatinine (0.66-1.25) mg/dL Glucose (74-99) mg/dL POC Glucose (mg/dL) 135 H 134 H 147 H (70-110) mg/dL Magnesium (1.6-2.3) mg/dL 12/28/24 12/28/24 12/28/24 Range/Units 07:22 07:22 11:26 RBC 2.36 L (4.40-5.60) 10*6/uL Hgb 8.2 L (13.0-17.0) g/dL Hct 24.5 L (39.6-50.0) % MCV 103.8 H (80.0-97.0) fL MCH 34.7 H (27.0-32.0) pg Plt Count 71 L (140-440) 10*3/uL MPV 12.9 H (9.5-12.2) fL Sodium 149 H (137-145) mmol/L Potassium 3.2 L (3.5-5.1) mmol/L Chloride 110 H (98-107) mmol/L Carbon Dioxide 33 H (22-30) mmol/L BUN 89 H (9-20) mg/dL Creatinine 1.61 H (0.66-1.25) mg/dL Glucose 137 H (74-99) mg/dL POC Glucose (mg/dL) 150 H (70-110) mg/dL Magnesium 1.5 L (1.6-2.3) mg/dL
--- NOTE | 2024-12-28 17:04 | P.PN ---
Subjective Progress Note Date: 12/28/24 Principal diagnosis: Pleural effusion, MM In f/u today pt is is out of the ICU, he is sitting up in bed. He reports he is feeling really weak, he is still not able to take anything by mouth because of failed swallow eval. He is tolerating NG feedings, no nausea or vomiting. He has no acute complaints otherwise. Objective - Vital Signs Vital signs: Vital Signs Temp 97.0 F L 12/28/24 11:58 Pulse 112 H 12/28/24 15:48 Resp 20 12/28/24 11:58 BP 96/56 12/28/24 11:58 Pulse Ox 92 L 12/28/24 11:58 FiO2 35 12/23/24 12:00 Intake & Output 12/27/24 12/28/24 12/28/24 18:59 06:59 18:59 Intake Total 20 Output Total 1550 1425 Balance -1550 -1425 20 Weight 72.5 kg Intake: IV 20 Invasive Line 5 20 Output: Urine 1500 1425 Stool 50 Other: Voiding Method Indwelling Catheter Indwelling Catheter Indwelling Catheter # Bowel Movements 1 1 1 ABP, PAP, CO, CI - Last Documented Arterial Blood Pressure 113/36 - Exam Mild distress, pt was pale and diaphoretic, increased respirations. He stated "I feel like I am going to ". Vital were taken and O2 sat 93%, HR 110. After a few moments the patient calm down, he was no longer diaphoretic, he had some color come back to his face, he was able to carry on a conversation. - Constitutional General appearance: Present: thin - EENT Eyes: Present: anicteric sclerae, EOMI ENT: Present: hearing grossly normal - Respiratory Respiratory: bilateral: diminished (R>L) - Cardiovascular Details: tachy - Peripheral edema leg Peripheral Edema: bilateral: Trace - Gastrointestinal General gastrointestinal: Present: soft - Neurologic Neurologic: Present: CNII-XII intact - Musculoskeletal Musculoskeletal: Present: generalized weakness - Psychiatric Psychiatric: Present: A&O x's 3 - Labs CBC & Chem 7: 12/28/24 07:22 12/28/24 07:22 Labs: Abnormal Lab Results - Last 24 Hours (Table) 12/27/24 12/28/24 12/28/24 Range/Units 18:10 00:00 06:07 RBC (4.40-5.60) 10*6/uL Hgb (13.0-17.0) g/dL Hct (39.6-50.0) % MCV (80.0-97.0) fL MCH (27.0-32.0) pg Plt Count (140-440) 10*3/uL MPV (9.5-12.2) fL Sodium (137-145) mmol/L Potassium (3.5-5.1) mmol/L Chloride (98-107) mmol/L Carbon Dioxide (22-30) mmol/L BUN (9-20) mg/dL Creatinine (0.66-1.25) mg/dL Glucose (74-99) mg/dL POC Glucose (mg/dL) 135 H 134 H 147 H (70-110) mg/dL Magnesium (1.6-2.3) mg/dL 12/28/24 12/28/24 12/28/24 Range/Units 07:22 07:22 11:26 RBC 2.36 L (4.40-5.60) 10*6/uL Hgb 8.2 L (13.0-17.0) g/dL Hct 24.5 L (39.6-50.0) % MCV 103.8 H (80.0-97.0) fL MCH 34.7 H (27.0-32.0) pg Plt Count 71 L (140-440) 10*3/uL MPV 12.9 H (9.5-12.2) fL Sodium 149 H (137-145) mmol/L Potassium 3.2 L (3.5-5.1) mmol/L Chloride 110 H (98-107) mmol/L Carbon Dioxide 33 H (22-30) mmol/L BUN 89 H (9-20) mg/dL Creatinine 1.61 H (0.66-1.25) mg/dL Glucose 137 H (74-99) mg/dL POC Glucose (mg/dL) 150 H (70-110) mg/dL Magnesium 1.5 L (1.6-2.3) mg/dL Assessment and Plan (1) [place] light chain myeloma Current Visit: Yes Status: Acute Priority: High Code(s): C90.00 - MULTIPLE MYELOMA NOT HAVING ACHIEVED REMISSION SNOMED Code(s): 480695071 (2) Hypercalcemia Current Visit: Yes Status: Resolved Priority: High Code(s): E83.52 - HYPERCALCEMIA SNOMED Code(s): 71859370 Plan: 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 -Completed 7 cycles of RVD in May 2024 achieving very good partial response, 99% reduction in kappa light chain -Had been on maintenance Revlimid 10 mg daily, which he stopped taking September 2024 for unclear reasons, he then developed progressive disease and symptoms of weakness, MICKEY, anemia, and thrombocytopenia -Admitted with failure to thrive with weakness, dehydration -CTA ruled out PE but reported pleural-based nodules with large right sided pleural effusion, peritoneal carcinomatosis, and retroperitoneal lymphadenopathy -720cc Right-sided thoracentesis performed, post procedure pneumo, thoravent placed, now removed. Resp status stable -Pleural fluid positive for plasma cells -Pt was intubated for resp failure -He required elitek for TLS. He required DDAVP for bleeding -CyBorD started, pt stable today. Treatment due today. Cont cytoxan, change dose reduction to 25% as pt is no longer on dialysis, renal function improved -Counts are stable, no transfusions needed today. -Renal function stable -Patient is going to need rehab on DC. Will continue steroids weekly. All other treatment will be held until patient is discharged from rehab Generalized weakness from prolonged hospitalization - PT/OT on the case. -Patient is having difficulty getting around due to the NG tube. When he moves, and it moves, it causes him nausea and discomfort so, he doesn't like to move. -Patient failed swallow evaluation, felt he failed secondary to intubation, and why he has NG/feeding via NG. He had a follow-up swallow evaluation today, he failed. -Case discussed with Internal Medicine PIPELINE DISPATCHER. Case discussed with Medical Oncologist. Recommendations for PEG tube for now. Surgical consult for placement of the same.
[2024-12-28 17:08] LABS: Glucose,Whole Blood 118 mg/dL (70-110)
[2024-12-28 17:09] VITALS: RESP 17; TEMP 98.2
[2024-12-28 17:24] VITALS: BP 53/33; PULSE 117
[2024-12-28] MEDS ORDERED: ARTIFICIAL TEARS-HYPROMELLOSE DROPS 15 ML BTL BOTH EYES PRN (17:25)
[2024-12-28] MEDS ORDERED: MORPHINE SULFATE 2 MG/ML SYRINGE IVP PRN (17:25)
[2024-12-28] MEDS ORDERED: ATROPINE OPHTH SOLN 1% 5ML BTL SUBLINGUAL PRN (17:25)
[2024-12-28] MEDS: CYCLOPHOSPHAMIDE IV SCH (17:40)
[2024-12-28] MEDS: SODIUM CHLORIDE 0.9% IV SCH (17:40)
[2024-12-28] MEDS: SCOPOLAMINE 1 MG/72 HR PATCH TRANSDERM SCH (17:41)
[2024-12-28] MEDS: MORPHINE SULFATE 100 MG in SODIUM CHLORIDE 0.9% 90 ML IV SCH (18:44)
--- NOTE | 2024-12-28 19:03 | P.DS ---
Providers Date of admission: 12/05/24 18:47 Expected date of discharge: 12/28/24 Attending physician: Zhen Parker Consults: 12/05/24 18:42 Consult Physician Routine Consulting Provider: Frederick Guallpa Consult Reason/Comments: hemoptysis Do you want consulting provider notified?: Yes 12/06/24 03:12 Consult Physician Routine Consulting Provider: Pascual Broderick Consult Reason/Comments: MM; known Do you want consulting provider notified?: Yes 12/06/24 06:08 Consult Physician Urgent Consulting Provider: Neri Cox Consult Reason/Comments: New onset A-fib with RVR Do you want consulting provider notified?: Yes 12/08/24 13:17 Consult Physician Routine Consulting Provider: Patricia Lyons Consult Reason/Comments: acute on chronic kidney dz/mm Do you want consulting provider notified?: Yes 12/13/24 00:51 Consult Physician Stat Consulting Provider: Paulie Waters Consult Reason/Comments: Intubation/transfer Do you want consulting provider notified?: Already Contacted 12/17/24 13:14 Consult Physician Stat Consulting Provider: Benito Dominique Consult Reason/Comments: HD catheter placement Do you want consulting provider notified?: Yes 12/25/24 08:36 Consult Physician Routine Consulting Provider: Juarez Waters Consult Reason/Comments: AMS Do you want consulting provider notified?: Yes 12/28/24 17:05 Consult Physician Routine Consulting Provider: Carrington Galaviz Consult Reason/Comments: PEG tube placement, cont to fail swallow eval Do you want consulting provider notified?: Yes, Notify in am Primary care physician: Kyung Jaimes [facility] Course: Preliminary cause of Multiple myeloma Final diagnosis Acute hypoxic respiratory failure with concerns of septic shock requiring intubation and mechanical ventilation status post successful extubation on 12/23/2024, was currently on 3 L via nasal cannula Malignant large pleural effusion status post thoracocentesis. On 12/13 has breathing that worsened because of CHF and large pleural effusion and patient had to be placed on mechanical ventilation. Pathology sample came back positive for malignant cells Change in mental status, metabolic encephalopathy, undergoing neurological workup, improved at baseline Iatrogenic right pneumothorax status post Thora vent placement, which was removed on 12/13 Acute kidney injury with worsening kidney functions, status post dialysis catheter placement requiring hemodialysis as of 12/19/2024, last hemodialysis 12/23/2024, catheter has been removed 12/27/2024 Multiple myeloma, s/p chemotherapy 12/15-12/17, currently undergoing treatment during hospitalization Hypercalcemia Chronic anemia Hypertension Hyperlipidemia Obstructive sleep apnea A-fib and RVR, currently rate controlled GI prophylaxis DVT prophylaxis No code Discharge disposition Patient has . According to nursing documentation, time of is 1828 on 12/28/2024. Patient was made comfort measures per family. Total time taken is greater than 35 minutes Hospital course patient is 79-year-old gentleman with past medical history significant for multiple myeloma, hypertension, hyperlipidemia presented to the ER because of abnormal labs. Patient normally sees Dr. Broderick and was on systemic treatment which apparently had stopped taking. Patient had blood work drawn outpatient and was told by the soldering machine operator to come to the ER. Patient states over the last couple of days he has been having increasing shortness of breath. Shortness of breath was present at rest as on exertion. Patient was complaining of being lethargic and weakness. Patient also complaining of productive cough with occasional episodes of hemoptysis. Denies any chest pain. There is no complaint of fever or chills. There is no complaint of orthopnea or PND. Patient denies any nausea, vomiting, pain. Patient denies any lightheaded or dizziness. Initial lab work done in the ER showed WBC 3.8, hemoglobin 9, platelet count 134 sodium 142, potassium 4, BUN 40, creatinine 1.40 glucose 103, lactate 1.2, calcium 10.5, magnesium 1.4 bilirubin 0.7, AST 27, ALT 11, troponin 0.018, proBNP 1550 Influenza A not detected Influenza B not detected RSV not detected COVID-19 not detected EKG done in the ER showed heart rate of , no ST segment elevation or depression seen, no T-wave inversions seen. Chest x-ray done in the ER showed patchy infiltrative opacity throughout the right lung with small to moderate size right pleural effusion. Questionable air-fluid level versus overlying skinfold is indeterminate for cavitary lesion or abscess. Recommend CT chest for further evaluation, consolidation in the left lung apex CT chest PE protocol done showed no definite acute PE within the vasculature, significant progression of metastatic disease with numerous pleural-based metastatic deposits and involvement of the left-sided ribs additionally there is peritoneal carcinomatosis in the partially visualized upper abdomen. Patient admitted to internal medicine service 3/20. Patient seen and examined. Status post right-sided thoracentesis with removal of 720 cc of fluid. Blood work done today showed WBC 4.9, hemoglobin 8.8, platelet count 138, sodium 143, potassium 4.1, BUN 33, creatinine 1.74, calcium 9.7 Patient had right-sided Thora vent placed this morning. Currently on 4 L of oxygen. 12/08. Patient seen and examined. Vital signs done this morning showedTemp 98, heart rate 98, respirations 30, blood pressure 125/84, currently on 2 L of oxygen. Denies any shortness of breath at rest. Currently has a Thora vent in place. Chest x-ray done this morning shows right-sided pleural effusion, right- sided chest tube in place with residual pneumothorax. 12/09. Old male patient currently sleeping, he was agitated and restless overnight and he was prescribed Seroquel 25 mg which made him calm He still tachypneic with a breathing rate around 28, he is saturating high 90s on 3 L oxygen via nasal cannula Hemoglobin slightly trending down to 7.7 and creatinine up to 1.9 His proBNP is 1550 and procalcitonin negative at 0.16 Chest x-ray reviewed by myself showing right more than left infiltrate but looks better than 2 days ago Renal ultrasound showing no hydronephrosis finger right renal cyst He is currently kept on Zosyn. On home dose of Eliquis 2.5 mg. He had pneumothorax on the right side status post Thora vent, currently he has minimal discharge from his right Thora vent 12/10 Patient moved out of the ICU to select unit He is more awake today but still confused, he was trying to pull out his lines and Thora vent. He is mildly tachypneic with talking. He can tell he is in the hospital but also still mildly confused. Serevent was Today. Repeat chest x-ray showing mild improvement in the right pneumothorax, I reviewed the chest x-ray by myself. He remains on Zosyn and home dose of Eliquis 2.5 Will going to add small dose of Seroquel 12.5. 12/11 Patient more awake trying to talk Still feel short of breath although slightly better than yesterday, breathing rate around 22 compared to 28 yesterday, his right upper chest Thora vent is in place and capped Repeat chest x-ray this morning showing right pleural effusion more than left with pulmonary vascular congestion suspicious for CHF. Currently patient off IV fluid He is on Zosyn and Eliquis 2.5 mg. 12/12 Patient in the morning was awake and alert but slightly agitated, he had a sitter at bedside. Thora vent was taken out after it was capped yesterday. His mentation was getting worse through the day and he became more tachypneic and tachycardic and he has to be placed on BiPAP. Repeat chest x-ray showing moderate to large right pleural effusion and evidence of CHF. Patient was moved to the ICU for more monitoring pH was 7.2 worsening to shovel loader operator to 7.08 and pCO2 was elevated at 58 worsened to 92. Creatinine also worsened up to 2.7 and sodium 146., With worsening breathing patient had to be intubated and placed on mechanical ventilation 12/13 Patient remains in the ICU intubated and sedated His breathing more quiet today. Abdomen soft Hemoglobin dropped to 7.0. Platelet count stable at 139, creatinine stable or slightly improved 2.7 down to 2.6. Patient placed on normal saline 75 mL/h. 12/14 Patient remains intubated and sedated He does not need pressors and Zosyn was discontinued He received some IV fluid Chest x-ray still showing pulmonary vascular congestion Pathology from pleural fluid came back positive for malignancy Sister and at bedside, oncology team discussing the case with them. Patient still at risk. 12/15 Patient remains intubated on mechanical ventilation in the ICU Family yesterday discussed the case with oncology team and patient remains full code and he was started on chemotherapy. Imodium can be stopped Chest x-ray showing persistent right-sided infiltrate most likely secondary to fluid and malignancy. Prognosis remains guarded and patient still high risk 12/16 Patient remains intubated and sedated Patient has no events overnight He was getting chemotherapy No IV fluid, no antibiotic chest tube feeding, he got 1 dose of 80 mg of Lasix yesterday He has good urine output of about 15 to 20 mL/h Also has low-grade temperature 100.2 yesterday and 9.9 today. Repeat chest x-ray showing CHF for right pleural effusion which is malignant pleural effusion Patient continue to get chemotherapy through tomorrow Patient has negative C. diff test 12/17 Patient still getting chemotherapy His creatinine gets worse and he has hemodialysis catheter placed in He remains intubated in the ICU on mechanical ventilation Breathing rate about 27 Creatinine worse at 5.0. Phosphorus 12.7. Glucose controlled. pH 7.23 12/18 Patient remains in the ICU intubated and sedated. Patient is today finished his chemotherapy per oncology team. Today he is not getting chemotherapy there is another cycle in order for chemotherapy on 12/21. However patient today developing worsening hypotension requiring Levophed and also started on sodium bicarb. Potassium and creatinine trending up, currently 5.6 with a plan for hemodialysis per ceramic engineer. Hemoglobin 7.0. Leukocytosis is increased but pH is low at 7.1. Chest x-ray showing same malignant pleural effusion. Prognosis tomy guarded 12/19/2024 Patient is seen in follow-up today continues in the ICU with multiple consultations following maintained on mechanical ventilation. Kidney functions are worsening with nephrology following and vascular surgery was consulted and dialysis catheter was placed. Patient scheduled to undergo hemodialysis today. Patient continues on pressor support which is being weaned and overall prognosis remains significantly guarded. Hemoglobin is stable today and being given a unit of PRBC. Will follow-up on repeat labs and monitor closely. 12/20/2024 Patient is seen and evaluated in the ICU continues to be on mechanical ventilation FiO2 is 35% with a PEEP of 5. Patient is undergoing sedation holidays and currently not following commands. Patient is receiving hemodialysis and kidney functions are improving although BUN remains elevated. Patient will receive dialysis again. Patient is making urine. Patient does have fecal management system and recommend C. difficile although stool was noted to be black and loose. Prognosis is extremely guarded at this time. 12/21/2024 Patient is seen in follow-up continues on mechanical ventilation with an FiO2 of 35% and PEEP is 5. Patient undergoing sedation holidays and does open eyes and eye track although significantly weak unable to follow commands. Patient with indwelling Escobar catheter monitoring intake and output and urine appears cloudy, will send urine for evaluation. Hemoglobin 7.1 and will likely need a unit of blood. Patient continued on hemodialysis and will possibly plan for unit of blood with next session of dialysis. Patient is afebrile and maintained on Zosyn and will continue. Low-dose pressor support remains at this time and weaning as tolerated. 12/22/2024 Patient is seen in follow-up today remains critically ill although showing some improvements. Patient is maintained on mechanical ventilation and not ready for weaning with chest x-ray showing pleural effusion recurrence and chest ultrasound was done with discussion of possible thoracentesis. Hemoglobin low and will be given a unit of blood and will discuss with oncology regarding t reatment plans. Patient is ongoing chemotherapy at this time and prognosis remains extremely guarded. Patient is maintained on low-dose pressor support, continued IV Zosyn, and amiodarone drip as patient was found to be in atrial fibrillation with RVR last night. Multiple consultations following. Patient is mildly sedated on low-dose propofol although is awake tracking and following commands, extremely weak although is attempting to lift upper extremities. Patient will require extensive physical therapy. 12/25/2024 Patient is seen in follow-up today remains in the ICU with multiple medical consultations following. Neurology has been consulted and pending at this time for assessment of mentation. Patient is off sedation has been extubated successfully is maintained on 2 to 3 L via nasal cannula. Patient continues with renal failure with nephrology following undergoing hemodialysis. Currently on hold today. Urine output is cloudy and is being closely monitored off antibiotic therapy at this time. Overall prognosis is extremely poor and guarded at this time. Patient awaiting swallow eval and will continue n.p.o. for now. 12/26/2024 Patient is seen in follow-up more awake today on 3 L via nasal cannula currently sitting up in the chair. Patient is a downgrade out of the ICU once a bed becomes available. Multiple consultations following including nephrology and last hemodialysis was 12/23/2024 and holding dialysis for now showing clinical improvement and renal functions. Continued close monitoring of electrolytes and being replaced per protocol. Patient does have an NG tube for now and maintaining on tube feedings will reeval with speech once patient is more strong. Patient is afebrile at this time. Hemoglobin is stable above 8. 12/27/2024 Patient is seen in follow-up today out of the ICU on 3 S. doing somewhat better although continues to be extremely weak. Patient currently n.p.o. maintained on NG tube for now and attempting to avoid TPN. Speech therapy to reassess swallow. Patient is continued on chemotherapy treatment with oncology following. Kidney functions improving patient is making urine and creatinine 1.77 today to remove dialysis catheter. Vascular surgery consulted with nephrology following closely. 12/28/2024 Patient is seen in follow-up today with multiple consultations following. Speech reevaluated the patient again and continues to fail swallow at this time and is continued on NG tube. Discussing possible PICC line and TPN or possible need for PEG tube. Patient does have secretions and is able to clear them somewhat. Patient is continued on breathing treatments and will continue. Patient continues on 2 L of oxygen via nasal cannula. Hemoglobin is stable today at 8.2 and white count remains normal at 8.41, platelets are 71. Sodium is 149 with a potassium of 3.2, BUN is 89 with a creatinine of 1.61 which is improved and patient is now maintained off dialysis. Patient has been transitioned to D5 and water and will follow-up on repeat labs in the a.m. Patient is being started on IV Lasix daily as patient does continue to be significantly overloaded. Bilateral upper extremity swelling is noted with slight improvement. Patient is weak and reporting discomfort in the NG tube. Patient would benefit from daily PT/OT therapy. Patient was later on transferred to oncology unit and was found to be unresponsive and hypotensive and tachycardic and family was contacted and requesting to proceed with comfort measures. No further interventions wanted and comfort care orders were placed. Patient has and according to nursing documentation, time of was 1838 on 12/28/2024. Please refer to other consultation notes for further HPI. The impression and plan of care has been dictated by Mildred Goff, Nurse Practitioner as directed. Dr. Anahi MD I have performed a history and examination and MDM of this patient, discussed the same with the dictator, and agree with the dictator's assessment and plan as written ,documented as a scribe. Based on total visit time, I have performed more than 50% of the visit. Patient Condition at Discharge: Serious Plan - Discharge Summary Discharge Rx Participant: No New Discharge Prescriptions: No Action RX: Omeprazole 20 mg PO DAILY RX: amLODIPine [Norvasc] 5 mg PO DAILY tab Metoprolol Succinate (ER) [Toprol Xl] 25 mg PO DAILY clonazePAM [KlonoPIN] 0.5 mg PO HS RX: Docusate Sodium 250 mg PO DAILY Acetaminophen Tab [Tylenol Tab] 1,000 mg PO Q6H PRN PRN Reason: Pain Naproxen Sodium [Aleve] 220 mg PO BID PRN PRN Reason: Pain Loperamide [Imodium] 2 - 4 mg PO QID PRN PRN Reason: Diarrhea Multivit-Min/FA/Lycopen/Lutein [Centrum Silver Tablet] 1 tab PO DAILY Calcium Citrate/Vitamin D3 [Calcium Cit 315-Vit D3 6.25 Mcg (250 Iu)] 1 tab PO DAILY Atorvastatin [Lipitor] 20 mg PO HS RX: Aspirin 81 mg PO DAILY Diphenoxylate HCl/Atropine [Lomotil 2.5-0.025 mg Tablet] 1 tab PO QID PRN PRN Reason: Diarrhea Discharge Medication List RX: Omeprazole 20 mg PO DAILY 11/06/23 [History] RX: amLODIPine [Norvasc] 5 mg PO DAILY tab 11/13/23 [Rx] Metoprolol Succinate (ER) [Toprol Xl] 25 mg PO DAILY 03/09/24 [History] RX: Aspirin 81 mg PO DAILY 03/09/24 [History] RX: Docusate Sodium 250 mg PO DAILY 03/09/24 [History] clonazePAM [KlonoPIN] 0.5 mg PO HS 03/09/24 [History] Acetaminophen Tab [Tylenol Tab] 1,000 mg PO Q6H PRN 12/05/24 [History] Atorvastatin [Lipitor] 20 mg PO HS 12/05/24 [History] Calcium Citrate/Vitamin D3 [Calcium Cit 315-Vit D3 6.25 Mcg (250 Iu)] 1 tab PO DAILY 12/05/24 [History] Diphenoxylate HCl/Atropine [Lomotil 2.5-0.025 mg Tablet] 1 tab PO QID PRN 12/05/24 [History] Loperamide [Imodium] 2 - 4 mg PO QID PRN 12/05/24 [History] Multivit-Min/FA/Lycopen/Lutein [Centrum Silver Tablet] 1 tab PO DAILY 12/05/24 [History] Naproxen Sodium [Aleve] 220 mg PO BID PRN 12/05/24 [History] Follow up Appointment(s)/Referral(s): Pascual Broderick MD [STAFF PHYSICIAN] - 12/28/24 1:15 pm Kyung Jaimes MD [Primary Care Provider] - 1-2 days [facility] Visiting Nurse, [NON-STAFF] - As Needed
[2024-12-29] MEDS ORDERED: FUROSEMIDE 10 MG/ML 4 ML VIAL IV SCH (09:00)
[2024-12-30] MEDS ORDERED: dexAMETHasone 4 MG TAB PO SCH (09:00)
== END 2024-12-28 20:35 | disposition expired | DRG 840 ==
LOC: EC 15:43 → 5NMEDONC 18:47 → 2SICU 12-06 07:37 → 3SCARD 12-06 12:32 → 2SICU 12-07 02:29 → 3SCARD 12-10 00:18 → 2SICU 12-13 00:17 → 3SCARD 12-26 17:25 → 5NMEDONC 12-28 16:04
PROVIDERS: ADMIT Hospitalist; ATTEND Hospitalist
DX: C90.02 Multiple myeloma in relapse (principal); A41.9 Sepsis, unspecified organism; J95.811 Postprocedural pneumothorax; E43 Unspecified severe protein-calorie malnutrition; N17.0 Acute kidney failure with tubular necrosis; E88.3 Tumor lysis syndrome; G92.8 Other toxic encephalopathy; J96.01 Acute respiratory failure with hypoxia; N18.6 End stage renal disease; R65.21 Severe sepsis with septic shock; J96.02 Acute respiratory failure with hypercapnia; I13.2 Hypertensive heart and chronic kidney disease with heart failure and with stage 5 chronic kidney disease, or end stage renal disease; C78.2 Secondary malignant neoplasm of pleura; C78.6 Secondary malignant neoplasm of retroperitoneum and peritoneum; J91.0 Malignant pleural effusion; C79.51 Secondary malignant neoplasm of bone; D63.1 Anemia in chronic kidney disease; I48.92 Unspecified atrial flutter; E87.0 Hyperosmolality and hypernatremia; E87.20 Acidosis, unspecified; N13.30 Unspecified hydronephrosis; T82.41XA Breakdown (mechanical) of vascular dialysis catheter, initial encounter; K92.1 Melena; Z66 Do not resuscitate; Z51.5 Encounter for palliative care; R04.2 Hemoptysis; I50.9 Heart failure, unspecified; I48.91 Unspecified atrial fibrillation; E86.0 Dehydration; E83.51 Hypocalcemia; E86.1 Hypovolemia; R62.7 Adult failure to thrive; T45.1X6A Underdosing of antineoplastic and immunosuppressive drugs, initial encounter; Z87.891 Personal history of nicotine dependence; Z68.21 Body mass index [BMI] 21.0-21.9, adult; D50.9 Iron deficiency anemia, unspecified; E78.5 Hyperlipidemia, unspecified; E83.42 Hypomagnesemia; E83.52 Hypercalcemia; E16.2 Hypoglycemia, unspecified; Z79.899 Other long term (current) drug therapy; R45.1 Restlessness and agitation; R19.7 Diarrhea, unspecified; E87.5 Hyperkalemia; Z28.21 Immunization not carried out because of patient refusal; E87.6 Hypokalemia; T50.2X5A Adverse effect of carbonic-anhydrase inhibitors, benzothiadiazides and other diuretics, initial encounter; G47.00 Insomnia, unspecified; G47.33 Obstructive sleep apnea (adult) (pediatric); Y71.2 Prosthetic and other implants, materials and accessory cardiovascular devices associated with adverse incidents; Z91.148 Patient's other noncompliance with medication regimen for other reason; Z79.01 Long term (current) use of anticoagulants; Z79.82 Long term (current) use of aspirin; Z20.822 Contact with and (suspected) exposure to COVID-19; Z91.128 Patient's intentional underdosing of medication regimen for other reason
CPT/HCPCS: 36415; 36600; 70450; 71045; 71275; 76604; 76770; 80048; 80053; 81001; 82140; 82272; 82330; 82607; 82728; 82746; 82784; 82805; 82945; 83540; 83550; 83605; 83615; 83735; 83880; 83883; 84100; 84132; 84145; 84157; 84166; 84439; 84443; 84484; 84550; 85025; 85027; 85610; 85730; 86706; 86850; 86900; 86901; 86920; 87040; 87070; 87086; 87102; 87116; 87205; 87206; 87324; 87340; 87449; 87493; 87496; 87498; 87502; 87529; 87634; 87635; 87636; 87798; 88108; 88305; 88341; 88342; 90935; 93005; 94002; 94003; 94640; 94660; 94760; 95816; 96361; 96365; 96375; 99291